=== PATIENT | female | born 1950 | race Caucasian/White ===

== ENCOUNTER 2017-08-27 04:16 | Inpatient (IN) | payer MEDICARE, BC ==
[2017-08-27] MEDS ORDERED: methylPREDNISolone SOD SUCCI 125 MG/2 ML VIAL IV STA (04:22)
[2017-08-27] MEDS ORDERED: IPRATROPIUM 0.5 MG/2.5 ML NEBU INHALATION STA (04:22)
[2017-08-27] MEDS: SODIUM CHLORIDE 0.9% 1,000 ML IV STA ×2 (04:50→10:50)
[2017-08-27 05:05] LABS: Albumin 2.3 g/dL (3.5-5.0); Calcium 6.7 mg/dL (8.4-10.2); Total Bilirubin 0.4 mg/dL (0.2-1.3); Total Protein 4.8 g/dL (6.3-8.2)
[2017-08-27] MEDS: ALBUTEROL NEBULIZED 2.5 MG/3 ML INHALATION STA ×2 (05:07→06:40)
[2017-08-27] MEDS ORDERED: DEXTROSE 5% IN WATER 100 ML with AMIODARONE 150 MG IV ONE (05:08)
[2017-08-27 05:12] LABS: Basophils % (A) 0 %; Eosinophils # (A) 0.1 k/uL (0-0.7); Eosinophils % (A) 1 %; HCT 30.2 % (34.0-46.0); HGB 8.9 gm/dL (11.4-16.0); Hypochromasia Marked; Lymphocytes # (A) 1.6 k/uL (1.0-4.8); Lymphocytes % (A) 11 %; MCH 28.4 pg (25.0-35.0); MCHC 29.5 g/dL (31.0-37.0); MCV 96.1 fL (80.0-100.0); Mean Platelet Volume 7.1; Monocytes # (A) 0.3 k/uL (0-1.0); Monocytes % (A) 2 %; Neutrophils % (A) 85 %; Platelet Count 540 k/uL (150-450); RBC 3.14 m/uL (3.80-5.40); RDW 15.8 % (11.5-15.5); WBC 14.2 k/uL (3.8-10.6)
--- NOTE | 2017-08-27 05:12 | ED ---
General Adult HPI - General Chief complaint: Shortness of Breath Stated complaint: altered mental status Time Seen by Provider: 08/27/17 04:22 Source: patient, EMS Mode of arrival: EMS Limitations: no limitations - History of Present Illness Initial comments: [age] years old lady lives with her daughter and daughter found her on the floor , did she pass out? Prolonged was she on the floor we don't know she is complaining about the headache neck pain and shortness of breath. She stating she just feels like she does have a history of kidney disease and peripheral vascular disease according to daughter she said lately she has been quite confused and needs reminders - Related Data Home Medications Medication Instructions Recorded Confirmed Acetaminophen Tab [Tylenol Tab] 650 mg PO Q4-6H PRN 08/27/17 08/27/17 Aspirin 81 mg PO DAILY 08/27/17 08/27/17 Atorvastatin [Lipitor] 20 mg PO HS 08/27/17 08/27/17 Calcium Acetate [Phoslo] 667 mg PO TID 08/27/17 08/27/17 Clopidogrel [Plavix] 75 mg PO DAILY 08/27/17 08/27/17 Docusate [Colace] 100 mg PO BID 08/27/17 08/27/17 Fluticasone Nasal [place] [Flonase 1 spr EA NOSTRIL DAILY 08/27/17 08/27/17 Nasal [place]] Folic Acid-Vit B Complex-Vit C 1 mg PO DAILY 08/27/17 08/27/17 [Nephrocaps] HYDROcodone/APAP 5-325MG [[place] 1 tab PO Q6HR PRN 08/27/17 08/27/17 5-325] Levothyroxine Sodium [Levoxyl] 400 mcg PO [place] 08/27/17 08/27/17 Levothyroxine Sodium [Synthroid] 200 mcg PO MOTUWETHFRSA 08/27/17 08/27/17 Pantoprazole [Protonix] 40 mg PO BID 08/27/17 08/27/17 Polyethylene Glycol 3350 [Miralax] 17 gm PO DAILY PRN 08/27/17 08/27/17 Potassium Chloride [K-Tab ER] 20 meq PO DAILY 08/27/17 08/27/17 Promethazine HCl 12.5 mg PO Q6H PRN 08/27/17 08/27/17 Sertraline [Zoloft] 100 mg PO DAILY 08/27/17 08/27/17 buPROPion HCL [Wellbutrin SR] 150 mg PO BID 08/27/17 08/27/17 Allergies Allergy/AdvReac Type Severity Reaction Status Date / Time Penicillins Allergy Swelling Verified 08/27/17 07:48 Review of Systems ROS Statement: Those systems with pertinent positive or pertinent negative responses have been documented in the HPI. ROS Other: All systems not noted in ROS Statement are negative. Past Medical History Past Medical History: Diabetes Mellitus, Renal Disease Additional Past Medical History / Comment(s): peritoneal dialysis. History of Any Multi-Drug Resistant Organisms: None Reported Past Surgical History: Bariatric Surgery, Coronary Bypass/CABG Past Psychological History: No Psychological Hx Reported Smoking Status: Former smoker Past Alcohol Use History: None Reported Past Drug Use History: Marijuana General Exam - General Exam Comments Initial Comments: General: The patient is awake and alert, in severe distress O2 sat is low 80s Skin: Skin is warm and dry and no rashes or lesions are noted. Eye: Pupils are equal, round and reactive to light, extra-ocular movements are intact; there is normal conjunctiva bilaterally. Ears, nose, mouth and throat: There are moist mucous membranes and no oral lesions. Neck: The neck is supple, there is no tenderness or JVD. Cardiovascular: There is a regular rate and rhythm. No murmur, rub or gallop is appreciated. Respiratory: To auscultation bilateral, no wheezing no rhonchi no distress respiratory shafer noticed Gastrointestinal: Soft, non-distended, non-tender abdomen without masses or organomegaly noted. There is no rebound or guarding present. Bowel sounds are unremarkable. Back: There is no tenderness to palpation in the midline. There is no obvious deformity. Musculoskeletal: Normal ROM, no tenderness, There is no pedal edema. There is no calf tenderness or swelling. No cords were appreciated. Neurological: CN II-XII intact, Cranial nerves III through XII are intact. There are no obvious motor or sensory deficits. Coordination appears grossly intact. Speech is normal. Psychiatric: Cooperative, appropriate mood & affect, normal judgment. Limitations: no limitations Course Vital Signs 08/27/17 08/27/17 08/27/17 04:19 04:38 05:07 Temperature 96.6 F L Pulse Rate 64 97 48 L Respiratory 28 H 34 H Rate Blood Pressure 199/116 O2 Sat by Pulse 93 L Oximetry 08/27/17 08/27/17 08/27/17 05:29 05:45 06:08 Temperature Pulse Rate 92 85 60 Respiratory 20 14 14 Rate Blood Pressure 81/56 78/53 97/69 O2 Sat by Pulse 97 100 97 Oximetry 08/27/17 08/27/17 08/27/17 06:26 06:39 06:43 Temperature Pulse Rate 89 94 91 Respiratory 14 14 Rate Blood Pressure 102/62 127/70 O2 Sat by Pulse 100 100 Oximetry 08/27/17 08/27/17 06:50 07:48 Temperature Pulse Rate 92 94 Respiratory 16 Rate Blood Pressure 113/66 O2 Sat by Pulse 100 Oximetry Medical Decision Making - Lab Data Result diagrams: 08/27/17 04:44 08/27/17 05:36 Lab Results 08/27/17 08/27/17 08/27/17 Range/Units 04:44 04:44 04:44 WBC 14.2 H (3.8-10.6) k/uL RBC 3.14 L (3.80-5.40) m/uL Hgb 8.9 L (11.4-16.0) gm/dL Hct 30.2 L (34.0-46.0) % MCV 96.1 (80.0-100.0) fL MCH 28.4 (25.0-35.0) pg MCHC 29.5 L (31.0-37.0) g/dL RDW 15.8 H (11.5-15.5) % Plt Count 540 H (150-450) k/uL Neutrophils % 85 % Lymphocytes % 11 % Monocytes % 2 % Eosinophils % 1 % Basophils % 0 % Neutrophils # 12.0 H (1.3-7.7) k/uL Lymphocytes # 1.6 (1.0-4.8) k/uL Monocytes # 0.3 (0-1.0) k/uL Eosinophils # 0.1 (0-0.7) k/uL Basophils # 0.0 (0-0.2) k/uL Hypochromasia Marked PT (9.0-12.0) sec INR (<1.2) APTT (22.0-30.0) sec D-Dimer (<0.60) mg/L FEU Sample Site ABG pH (7.35-7.45) ABG pCO2 (35-45) mmHg ABG pO2 (83-108) mmHg ABG HCO3 (21-25) mmol/L ABG Total CO2 (19-24) mmol/L ABG O2 Saturation (94-97) % ABG Base Excess mmol/L Rhett Test FiO2 % Sodium 143 (137-145) mmol/L Potassium 6.5 H* (3.5-5.1) mmol/L Chloride 112 H (98-107) mmol/L Carbon Dioxide 5 L* (22-30) mmol/L Anion Gap 26 mmol/L BUN 105 H* (7-17) mg/dL Creatinine 9.44 H* (0.52-1.04) mg/dL Est GFR (CKD-EPI)AfAm 5 (>60 ml/min/1.73 sqM) Est GFR (CKD-EPI)NonAf 4 (>60 ml/min/1.73 sqM) Glucose 194 H (74-99) mg/dL Calcium 6.7 L (8.4-10.2) mg/dL Total Bilirubin 0.4 (0.2-1.3) mg/dL AST 35 (14-36) U/L ALT 23 (9-52) U/L Alkaline Phosphatase 66 (38-126) U/L Total Creatine Kinase 181 H (30-135) U/L CK-MB (CK-2) 6.7 H* (0.0-2.4) ng/mL CK-MB (CK-2) Rel Index 3.7 Troponin I 1.240 H* (0.000-0.034) ng/mL Total Protein 4.8 L (6.3-8.2) g/dL Albumin 2.3 L (3.5-5.0) g/dL 08/27/17 08/27/17 08/27/17 Range/Units 04:44 05:36 07:27 WBC (3.8-10.6) k/uL RBC (3.80-5.40) m/uL Hgb (11.4-16.0) gm/dL Hct (34.0-46.0) % MCV (80.0-100.0) fL MCH (25.0-35.0) pg MCHC (31.0-37.0) g/dL RDW (11.5-15.5) % Plt Count (150-450) k/uL Neutrophils % % Lymphocytes % % Monocytes % % Eosinophils % % Basophils % % Neutrophils # (1.3-7.7) k/uL Lymphocytes # (1.0-4.8) k/uL Monocytes # (0-1.0) k/uL Eosinophils # (0-0.7) k/uL Basophils # (0-0.2) k/uL Hypochromasia PT 12.6 H (9.0-12.0) sec INR 1.3 H (<1.2) APTT 27.5 (22.0-30.0) sec D-Dimer 5.03 H (<0.60) mg/L FEU Sample Site Left Radial ABG pH 7.07 L* (7.35-7.45) ABG pCO2 32 L (35-45) mmHg ABG pO2 301 H (83-108) mmHg ABG HCO3 9 L* (21-25) mmol/L ABG Total CO2 10 L (19-24) mmol/L ABG O2 Saturation 98.6 H (94-97) % ABG Base Excess -21.2 mmol/L Rhett Test Yes FiO2 100 % Sodium (137-145) mmol/L Potassium 7.1 H* (3.5-5.1) mmol/L Chloride (98-107) mmol/L Carbon Dioxide (22-30) mmol/L Anion Gap mmol/L BUN (7-17) mg/dL Creatinine (0.52-1.04) mg/dL Est GFR (CKD-EPI)AfAm (>60 ml/min/1.73 sqM) Est GFR (CKD-EPI)NonAf (>60 ml/min/1.73 sqM) Glucose (74-99) mg/dL Calcium (8.4-10.2) mg/dL Total Bilirubin (0.2-1.3) mg/dL AST (14-36) U/L ALT (9-52) U/L Alkaline Phosphatase (38-126) U/L Total Creatine Kinase (30-135) U/L CK-MB (CK-2) (0.0-2.4) ng/mL CK-MB (CK-2) Rel Index Troponin I (0.000-0.034) ng/mL Total Protein (6.3-8.2) g/dL Albumin (3.5-5.0) g/dL Critical Care Time Total Critical Care Time: 90 Critical Care Time: Her EKG is a white complex consistent with a ventricular tachycardia though rate is not that high high potassium is high as well 6.5 she said renal failure and SHE DEVELOPS SEVERE SHORTNESS OF BREATH O2 SAT DROPPED 50 Point WE INTUBATED HER AND NOW SHE IS ON THE VENT AND OXYGENATION HAS IMPROVED QUITE A BIT BACK AND GIVE HER AMIODARONE 150 MG OVER 10 MINUTES TO ADDRESS THE HYPERKALEMIA AND RENAL FAILURE WE'LL TAKE S AND CALCIUM CHLORIDE ONE AMPULE WITH THE D50 AMPULE AND NOW AND NOW REGULAR INSULIN 10 UNITS IV AND TROPONIN IS QUITE ELEVATED SHE DOES NEED HEPARINIZATION AND PROBABLY CARDIAC CATHETER BEFORE WE DO THAT WE NEED TO RULE OUT ANY INTRACEREBRAL BLEED BECAUSE SHE WAS FOUND AND SHE WAS FOUND ON THE FLOOR AND THERE IS A QUESTION OF LOSS OF CONSCIOUSNESS I NEED TO RULE OUT INTRACEREBRAL BLEED BEFORE I PUT ON HEPARIN, BLOOD PRESSURES QUITE LOW. Head CT was reviewed, there is no intracranial bleed , and patient will be heparinized considering her elevated troponin and a run of white complex tachycardia patient is on now appendectomy infusion will consult Dr. aWlker considering her renal failure Dr. Powell has been paged patient be admitted to ICU Dr. Castaneda is going to be the hospitalist and pleuritic 2 g of Rocephin was given area Disposition Clinical Impression: Respiratory failure, Metabolic acidosis, Myocardial infarction, V tach, Syncope , Renal failure Disposition: ADMITTED IP TO THIS HOSP Referrals: Nonstaff,Physician [REFERRING] - 1-2 days
[2017-08-27 05:13] LABS: INR 1.3 (<1.2); Partial Thromboplastin Time 27.5 sec (22.0-30.0); Prothrombin Time 12.6 sec (9.0-12.0)
[2017-08-27 05:25] LABS: Potassium 6.5 mmol/L (3.5-5.1)
[2017-08-27 05:31] LABS: Creatine Kinase MB 6.7 ng/mL (0.0-2.4); Troponin I 1.24 ng/mL (0.000-0.034)
[2017-08-27 05:33] LABS: D-Dimer 5.03 mg/L FEU (<0.60)
[2017-08-27] MEDS ORDERED: CALCIUM CHLORIDE 100 MG/ML 10 ML SYRINGE IVP STA (05:36)
[2017-08-27] MEDS ORDERED: DEXTROSE 50%-WATER 50 ML SYRINGE IVP STA (05:38)
[2017-08-27] MEDS ORDERED: INSULIN REGULAR 100 UNIT/ML VIAL IV ONE (05:39)
--- NOTE | 2017-08-27 05:50 | XR ---
EXAM: XR Chest, 1 View CLINICAL HISTORY: Difficulty breathing. TECHNIQUE: Frontal view of the chest. COMPARISON: No relevant prior studies available. FINDINGS: Lungs: Perihilar and lung base opacities. Pleural space: No significant pleural effusion or pneumothorax. Heart: Mildly enlarged cardiac silhouette. Mediastinum: Postsurgical changes of the chest with evidence of prior sternotomy and postsurgical changes along the left mediastinal margin. Bones/joints: Osseous structures appear intact.. Tubes, lines and devices: Endotracheal tube tip located 3.5 to 4 cm above the merlin in satisfactory position. Enteric tube tip located below the diaphragm in the region of the stomach. Enteric tube appears somewhat curved or kinked distally. IMPRESSION: 1. Endotracheal tube tip located 3.5 to 4 cm above the merlin in satisfactory position. 2. Enteric tube tip located below the diaphragm in the region of the stomach. Enteric tube appears somewhat curved or kinked distally. Correlate for desired positioning. 3. Perihilar and lung base opacities. Findings may be related to congestive change/pulmonary edema versus infectious/inflammatory infiltrates or other process. Recommend clinical correlation and attention on follow-up imaging. 4. Mildly enlarged cardiac silhouette.
[2017-08-27] MEDS: EPINEPHrine 2 MG in DEXTROSE 5% IN WATER 250 ML IV ONE ×6 (05:52→20:49)
[2017-08-27] MEDS ORDERED: KETAMINE 10 MG/ML 20 ML VIAL IV ONE (05:59)
[2017-08-27] MEDS ORDERED: ALBUTEROL NEBULIZED (CONC) 5 MG, SODIUM CHLORIDE 0.9% NEBULIZ 3 ML INHALATION STA ×2 (06:15)
[2017-08-27] MEDS ORDERED: SODIUM BICARB 8.4% 50 ML SYR (1 MEQ/ML) IV ONE ×2 (06:20→08:21)
--- NOTE | 2017-08-27 07:22 | CT ---
EXAMINATION TYPE: CT brain gume madden DATE OF EXAM: 08/27/2017 COMPARISON: NONE HISTORY: Altered mental status and confusion had to be intubated, headache and neck pain CT DLP: 2060 mGycm. Automated Exposure Control for Dose Reduction was Utilized. TECHNIQUE: CT scan of the head and cervical spine are performed without contrast. FINDINGS: There is motion artifact degradation making evaluation suboptimal despite attempted repeat . There is no obvious acute intracranial hemorrhage or midline shift identified. There is ventricular and sulcal prominence consistent with mild age-related cerebral atrophy. There is low-attenuation in the periventricular white matter most likely on basis of product of chronic small vessel ischemic ch tabatha. The calvarium is intact. Neither lens is well-visualized. Visualized paranasal sinuses are michael r. There is partial visualization of endotracheal and orogastric tubes. Incidental 1.3 cm calcified h igh right parietal scalp lesion favored sebaceous cyst or other benign dermatologic etiology axial im age 52 is noted . Cervical spine is visualized in its entirety from C1 through upper thoracic levels and demonstrates s atisfactory alignment without evidence of acute fracture or dislocation. Prevertebral soft tissue ap pears within normal limits. The C1-C2 articulation is within normal limits on the coronal images. There is slight levoconvex scoliotic curvature centered in the upper thoracic spine. Vertebral body a nd disc space heights are maintained. There is moderate anterior spurring C6-C7 level. Review of axia l images shows spur disc complex effacing anterior thecal sac at C6-C7 level. Visualized lung apices show no pneumothorax, emphysematous changes felt present. Interstitial prominence is noted. Thyroid g land is not well-visualized and/or small in size. Small vessel vascular calcification is noted. Endot marcelo tube terminates above merlin at superior level of aortic arch. IMPRESSION: 1. There is no acute fracture or dislocation evident in the cervical spine. 2. No acute intracranial hemorrhage or midline shift is seen.
[2017-08-27] MEDS ORDERED: KETAMINE 50 MG/ML 10 ML VIAL IV STA (07:24)
[2017-08-27] MEDS ORDERED: KETAMINE 10 MG/ML 20 ML VIAL IV STA (07:27)
[2017-08-27 07:33] LABS: ABG Base Excess -21.2 mmol/L; ABG Oxygen Saturation 98.6 % (94-97); ABG PCO2 32 mmHg (35-45); ABG PO2 301 mmHg (83-108); ABG TCO2 10 mmol/L (19-24)
[2017-08-27 07:44] LABS: ABG HCO3 9 mmol/L (21-25); ABG PH 7.07 (7.35-7.45)
[2017-08-27] MEDS ORDERED: HEPARIN SODIUM,PORCINE 5,000 UNIT/ML 1 ML VIAL IV ONE (07:52)
[2017-08-27] MEDS ORDERED: cefTRIAXone 2,000 MG in SODIUM CHLORIDE 0.9% 100 ML IVPB STA (08:01)
[2017-08-27] MEDS ORDERED: cefTRIAXone IN SWFI 2,000 MG/20 ML SYRINGE IVP ONE (08:15)
[2017-08-27] MEDS: HEPARIN SODIUM,PORCINE/D5W PMX 25,000 UNIT in DEXTROSE/WATER 1 500ML.BAG IV SCH (08:29)
[2017-08-27 09:10] LABS: Glucose,Whole Blood 213 mg/dL (75-99)
[2017-08-27] MEDS ORDERED: PROPOFOL 100 ML IV ONE (09:14)
[2017-08-27] MEDS ORDERED: VANCOMYCIN IV PER PHARMACY 1 EACH MISC MISCELLANE PRN (09:49)
[2017-08-27] MEDS ORDERED: SODIUM CHLORIDE 0.9% 2,000 ML IV ONE (09:52)
[2017-08-27] MEDS ORDERED: DEXTROSE 5% IN WATER 1,000 ML with SODIUM BICARB (1 MEQ/ML) 150 ML IV ONE (10:07)
[2017-08-27] MEDS ORDERED: IPRATROPIUM-ALBUTEROL 3 ML NEB INHALATION PRN (10:09)
--- NOTE | 2017-08-27 10:15 | P.NPCON ---
History of Present Illness - Reason for Consult end stage renal disease - History of Present Illness Reason for consultation: End-stage renal disease History of present illness: Patient is a 67-year-old female seen in renal consultation for end-stage renal disease. She is maintained on peritoneal dialysis. [facility] Patient has been on peritoneal dialysis since November 2016. Prior to that she was on hemodialysis for 2 months. Etiology is diabetic kidney disease. Patient lives independently but recently moved in with her daughter in [place], [place]. Last night the daughter heard her speak and thought she was treating. She then heard the patient fall and brought her to the hospital. Patient's potassium level was 6.5 and repeat level was 7.1. She did receive calcium gluconate, 2 g of sodium bicarbonate as well as 10 units of IV insulin with amp of D50. Repeat potassium level is pending. She was also noted to be extremely acidotic with a bicarbonate level of 5. She was noted to be in A. fib with RVR and received amiodarone bolus in the ER. There was also concern for V. tach. She is currently on 7 mics of epinephrine. She is also receiving her first liter of 0.9 fluid bolus. Daughter denies any history of peritonitis. States her dialysis fluid has been clear. Oral intake has been fair the last few days. Vital signs - blood pressure in the systolic 70s. Afebrile. Currently on ventilator. General: The patient appeared well nourished and normally developed. HEENT: Head exam is unremarkable. Neck is without jugular venous distension. LUNGS: Breath sounds decreased. Scattered rhonchi. HEART: Irregular rate and rhythm. ABDOMEN: Abdominal exam reveals normal bowel sounds. Non-tender and non- distended. No evidence of peritonitis. EXTREMITITES: No clubbing, cyanosis, or edema. Past Medical History Past Medical History: Coronary Artery Disease (CAD), COPD, Diabetes Mellitus, GERD/Reflux, GI Bleed, Hyperlipidemia, Hypertension, Renal Disease, Syncope, Vascular Disorder Additional Past Medical History / Comment(s): CKD with peritoneal dialysis nightly-family states she did not perform dialysis last night and possible not the night before that d/t difficulty with equipment, family states pt possible on transplant list for kidney, anemia with transfusions, nausea, NIDDM-no longer on medication since starting dialysis a year ago, possible prior AL/echo- date unknown, PAD-fingers black and sores on feet, PUD with +hemoccult stool, constipation, falls, bladder cyst. History of Any Multi-Drug Resistant Organisms: None Reported Past Surgical History: Bariatric Surgery, Coronary Bypass/CABG, Heart Catheterization Additional Past Surgical History / Comment(s): Approximately 2002 CABG-3 vessels at [facility], multiple angiograms, colonoscopies/benign polypectomies, EGDs, bilateral laser surgery for cataract removals, gastric bypass. Past Anesthesia/Blood Transfusion Reactions: No Reported Reaction Additional Past Anesthesia/Blood Transfusion Reaction / Comment(s): Pt has received blood in past without reaction. Smoking Status: Former smoker - Past Family History Father Family Medical History: Cancer Additional Family Medical History / Comment(s): Father had multiple myeloma. He at the age of 87yrs. Mother Family Medical History: Myocardial Infarction (AL) Additional Family Medical History / Comment(s): Mother of a massive AL at the age of 62 yrs. Medications and Allergies Home Medications Medication Instructions Recorded Confirmed Type Acetaminophen Tab [Tylenol Tab] 650 mg PO Q4-6H PRN 08/27/17 08/27/17 History Aspirin 81 mg PO DAILY 08/27/17 08/27/17 History Atorvastatin [Lipitor] 20 mg PO HS 08/27/17 08/27/17 History Calcium Acetate [Phoslo] 667 mg PO TID 08/27/17 08/27/17 History Clopidogrel [Plavix] 75 mg PO DAILY 08/27/17 08/27/17 History Docusate [Colace] 100 mg PO BID 08/27/17 08/27/17 History Fluticasone Nasal [place] [Flonase 1 spr EA NOSTRIL DAILY 08/27/17 08/27/17 History Nasal [place]] Folic Acid-Vit B Complex-Vit C 1 mg PO DAILY 08/27/17 08/27/17 History [Nephrocaps] HYDROcodone/APAP 5-325MG [[place] 1 tab PO Q6HR PRN 08/27/17 08/27/17 History 5-325] Levothyroxine Sodium [Levoxyl] 400 mcg PO PAT[place] 08/27/17 08/27/17 History Levothyroxine Sodium [Synthroid] 200 mcg PO MOTUWETHFRSA 08/27/17 08/27/17 History Pantoprazole [Protonix] 40 mg PO BID 08/27/17 08/27/17 History Polyethylene Glycol 3350 [Miralax] 17 gm PO DAILY PRN 08/27/17 08/27/17 History Potassium Chloride [K-Tab ER] 20 meq PO DAILY 08/27/17 08/27/17 History Promethazine HCl 12.5 mg PO Q6H PRN 08/27/17 08/27/17 History Sertraline [Zoloft] 100 mg PO DAILY 08/27/17 08/27/17 History buPROPion HCL [Wellbutrin SR] 150 mg PO BID 08/27/17 08/27/17 History Allergies Allergy/AdvReac Type Severity Reaction Status Date / Time Penicillins Allergy Swelling Verified 08/27/17 07:48 Physical Exam Vitals: Vital Signs Temp Pulse Resp BP Pulse Ox 08/27/17 08:41 94 14 94/58 97 08/27/17 07:48 94 16 113/66 100 08/27/17 06:50 92 08/27/17 06:43 91 08/27/17 06:39 94 14 127/70 100 08/27/17 06:26 89 14 102/62 100 08/27/17 06:08 60 14 97/69 97 08/27/17 05:45 85 14 78/53 100 08/27/17 05:29 92 20 81/56 97 08/27/17 05:07 48 L 08/27/17 04:38 97 34 H 199/116 08/27/17 04:19 96.6 F L 64 28 H 93 L Intake and Output 08/26/17 08/27/17 08/27/17 22:59 06:59 14:59 Intake Total 2.961 Balance 2.961 Intake: Intake, IV Titration 2.961 Amount EPINEPHrine 2 mg In 2.961 Dextrose 5% in Water 250 ml @ 2 MCG/MIN 15.12 mls/ hr IV .[id number] ONE Rx#: [id number] Other: Weight 56.245 kg Results - Lab Results Most recent lab results ABG pH 7.07 (7.35-7.45) L* 08/27/17 07:27 ABG pCO2 32 mmHg (35-45) L 08/27/17 07:27 ABG pO2 301 mmHg (83-108) H 08/27/17 07:27 ABG HCO3 9 mmol/L (21-25) L* 08/27/17 07:27 ABG O2 Saturation 98.6 % (94-97) H 08/27/17 07:27 Calcium 6.7 mg/dL (8.4-10.2) L 08/27/17 04:44 08/27/17 04:44 08/27/17 05:36 Assessment and Plan Plan: Assessment: 1. End-stage renal disease maintained on peritoneal dialysis since November 2016. Etiology is diabetic kidney disease. 2. Hyperkalemia secondary to severe metabolic acidosis. She was also taking potassium supplementation as outpatient. According to daughter she did not do PD last night. 3. Severe metabolic acidosis. Concern for lactic acidosis due to severe hypotension. Blood sugars not significantly elevated. 4. Chronic kidney disease mineral bone disease maintained on PhosLo as outpatient. 5. History of coronary artery disease status post CABG 15 years ago. 6. Severe hypotension maintained on vasopressors. Concern for sepsis. 7. Cardiac arrhythmia. Initially A. fib then concern for V. tach. Can be related to hyperkalemia. Plan: Start isotonic sodium bicarbonate drip to be run at 100 mL an hour. She is currently receiving her first liter of normal saline bolus. The bolus may be repeated at least twice if needed for hypotension. Maintain vasopressors - currently on epinephrine 7 mics. Follow-up repeat potassium level. Start PD exchanges 2 L every 4 hours with 1.5% solution. Follow-up cultures. Check lactic acid level. Continue to monitor closely - if no significant improvement in her hyperkalemia , will do emergent hemodialysis. Thank you for the consultation. I will continue to follow the patient is due during her hospital stay.
[2017-08-27 10:47] LABS: ABG Base Excess -16.4 mmol/L; ABG HCO3 11 mmol/L (21-25); ABG Oxygen Saturation 94.2 % (94-97); ABG PCO2 27 mmHg (35-45); ABG PH 7.22 (7.35-7.45); ABG PO2 88 mmHg (83-108); ABG TCO2 12 mmol/L (19-24)
[2017-08-27] MEDS: PANTOPRAZOLE 40 MG/10 ML VIAL IVP SCH (10:48)
[2017-08-27] MEDS: MEROPENEM 1 GM in SODIUM CHLORIDE 0.9% 100 ML IVPB SCH ×3 (10:49→23:05)
[2017-08-27 10:58] LABS: Basophils % (A) 0 %; Eosinophils # (A) 0.1 k/uL (0-0.7); Eosinophils % (A) 1 %; HCT 26.8 % (34.0-46.0); HGB 8.3 gm/dL (11.4-16.0); Hypochromasia Slight; Lymphocytes # (A) 0.7 k/uL (1.0-4.8); Lymphocytes % (A) 4 %; MCH 28.5 pg (25.0-35.0); MCHC 30.8 g/dL (31.0-37.0); MCV 92.5 fL (80.0-100.0); Mean Platelet Volume 7.4; Monocytes # (A) 0.5 k/uL (0-1.0); Monocytes % (A) 3 %; Neutrophils # (A) 15.6 k/uL (1.3-7.7); Neutrophils % (A) 91 %; Platelet Count 464 k/uL (150-450); RBC 2.89 m/uL (3.80-5.40); RDW 15.9 % (11.5-15.5)
[2017-08-27 11:13] LABS: Calcium 6.9 mg/dL (8.4-10.2); Potassium 4.5 mmol/L (3.5-5.1)
[2017-08-27] MEDS: DEXTROSE 5% IN WATER 1,000 ML with SODIUM BICARB (1 MEQ/ML) 150 ML IV SCH ×2 (11:14→22:55)
[2017-08-27] MEDS ORDERED: SODIUM POLYSTYRENE SULFONATE 15 GM/60 ML BOTTLE PO STA (11:14)
--- NOTE | 2017-08-27 11:23 | P.CNPUL ---
History of Present Illness Consult date: 08/27/17 Reason for consult: dyspnea History of present illness: This is a 67-year-old female patient with multiple medical problems and comorbidities who presented to ED with acute respiratory distress, intubated and placed on a mechanical ventilator and then moved to the intensive care unit. The patient has taken all of her care at [facility]. She has chronic renal failure and she currently has end stage renal disease and she is seeking kidney transportation the patient has been evaluated at [facility] for potential kidney transplant the daughter being her daughter. This patient lives in [place] and she recently moved in with her daughter living in [facility], and for that reason during this current episode the patient was brought in to our hospital. All of the information was obtained is from the daughters at the bedside This patient has developed renal failure, probably related to previous history of diabetes mellitus. She was started on peritoneal dialysis approximately year ago and she does nighttime cycler continuous with a 1.5 fluid exchange. This was started on high-dose in November 2016. Hemodialysis was considered and the patient was about to have a left upper extremity AV fistula. The fistula itself got clotted and the patient developed also ulceration in her digits bilaterally and for that reason this was not pursued. Currently the patient is gangrenous necrotic digits of the middle fingers of the left and the fourth finger on the right, affecting the tips. This was investigated at length at [facility]. The patient underwent a CT angios of the entire chest abdomen pelvis and extremities and she was found to have no significant subclavian axillary or brachial artery narrowing. She was found to have diffuse atherosclerosis with calcification of the bilateral radial and ulnar arteries and mild to moderate narrowing in the areas affecting the wrist. Atherosclerotic changes were also seen in the infrarenal abdominal aortic area which was estimated to be severe. Bilateral iliofemoral atherosclerotic changes were also seen. The patient was told to have small vessel disease and based on the reported history there was no evidence of any embolic phenomena or vasculitis The patient is known to have coronary artery disease and she has undergone pleased bypass surgery. She was morbidly obese and she was diabetic. She has undergone gastric bypass surgery more than 6 years ago and she has lost considerable amount of weight and during this time the patient was taken off as soon as she improved in terms of her blood sugar control and she started having episodes of hypoglycemia. Currently she is off anticoagulation. She also has chronic atrial fibrillation, chronic renal failure and currently she is on peritoneal dialysis, she hasn't complications of hyperkalemia, and she has history of hypertension, hyperlipidemia, hypothyroidism, peripheral vascular disease and previous history of coronary artery disease and myocardial infarction. The patient was at her daughter's home where she was feeling weak. In the residential care officer hours the patient was found by the daughter collapsed in the bathroom. No reported chest pain or palpitations. No focal neurological deficit. The patient was lethargic and she was arousable and she was able to speak. She was moving all 4 extremities according to the history. No fever. No chills. No cough or sputum production. No nausea, vomiting or abdominal pain. The PD catheter was apparently functional. No skin rashes. Necrotic digits were seen bilaterally and these are dry gangrene. In the ED, the patient was found to be hypotensive postintubation. The patient was started on IV fluids and pressors. The patient was started on epinephrine infusion. She was intubated and blood gas showed severe metabolic acidosis. The chest x-ray shows cardiomegaly and pulmonary vessel congestion. ET tube was in a good location. No consolidation . Meanwhile, the patient's white cell count was at 14.2. The patient had a potassium level of 6.5 was being treated in the emergency department with a combination of Kayexalate, D50 and insulin and bicarb and the patient was severely acidotic with anion gap metabolic acidosis with a gap of 26 and a bicarb level of 5, creatinine of 9.4, and a troponin level of 1.2. EKG is not showing any acute ischemic abnormalities and is showing a normal sinus rhythm with a left bundle-branch block pattern. Subsequent potassium level was 7.1. Waldemar saw the patient in the ICU and we're going to start peritoneal dialysis. Meanwhile the patient is being resuscitated IV fluids. We'll start empiric antibiotic coverage. We'll monitor cardiac enzymes and obtain an echocardiogram. The computed tomography scan of the brain and C-spine showed no evidence of acute fracture and there was no evidence of any acute intracranial hemorrhage. The Review of Systems ROS unobtainable: due to endotracheal tube Past Medical History Past Medical History: Coronary Artery Disease (CAD), COPD, Diabetes Mellitus, GERD/Reflux, GI Bleed, Hyperlipidemia, Hypertension, Renal Disease, Syncope, Vascular Disorder Additional Past Medical History / Comment(s): Coronary artery disease, previous bypass surgery, COPD, and stage renal disease currently on hemodialysis, morbid obesity with a previous bariatric surgery, history of diabetes mellitus currently off treatment, hyperlipidemia, hypertension, acid reflux, severe peripheral vascular disease, necrotic digits with dry gangrene is related to small vessel disease, chronic anemia, previous blood transfusions, previous myocardial infarction, currently on hemodialysis, peptic ulcer disease, history of falls, History of Any Multi-Drug Resistant Organisms: None Reported Past Surgical History: Bariatric Surgery, Coronary Bypass/CABG, Heart Catheterization Additional Past Surgical History / Comment(s): Approximately 2002 CABG-3 vessels at [facility], multiple angiograms, colonoscopies/benign polypectomies, EGDs, bilateral laser surgery for cataract removals, gastric bypass. Past Anesthesia/Blood Transfusion Reactions: No Reported Reaction Additional Past Anesthesia/Blood Transfusion Reaction / Comment(s): Pt has received blood in past without reaction. Smoking Status: Former smoker - Past Family History Father Family Medical History: Cancer Additional Family Medical History / Comment(s): Father had multiple myeloma. He at the age of 87yrs. Mother Family Medical History: Myocardial Infarction ([place]) Additional Family Medical History / Comment(s): Mother of a massive [place] at the age of 62 yrs. Medications and Allergies Home Medications Medication Instructions Recorded Confirmed Type Acetaminophen Tab [Tylenol Tab] 650 mg PO Q4-6H PRN 08/27/17 08/27/17 History Aspirin 81 mg PO DAILY 08/27/17 08/27/17 History Atorvastatin [Lipitor] 20 mg PO HS 08/27/17 08/27/17 History Calcium Acetate [Phoslo] 667 mg PO TID 08/27/17 08/27/17 History Clopidogrel [Plavix] 75 mg PO DAILY 08/27/17 08/27/17 History Docusate [Colace] 100 mg PO BID 08/27/17 08/27/17 History Fluticasone Nasal [place] [Flonase 1 spr EA NOSTRIL DAILY 08/27/17 08/27/17 History Nasal [place]] Folic Acid-Vit B Complex-Vit C 1 mg PO DAILY 08/27/17 08/27/17 History [Nephrocaps] HYDROcodone/APAP 5-325MG [[place] 1 tab PO Q6HR PRN 08/27/17 08/27/17 History 5-325] Levothyroxine Sodium [Levoxyl] 400 mcg PO PATTON 08/27/17 08/27/17 History Levothyroxine Sodium [Synthroid] 200 mcg PO MOTUWETHFRSA 08/27/17 08/27/17 History Pantoprazole [Protonix] 40 mg PO BID 08/27/17 08/27/17 History Polyethylene Glycol 3350 [Miralax] 17 gm PO DAILY PRN 08/27/17 08/27/17 History Potassium Chloride [K-Tab ER] 20 meq PO DAILY 08/27/17 08/27/17 History Promethazine HCl 12.5 mg PO Q6H PRN 08/27/17 08/27/17 History Sertraline [Zoloft] 100 mg PO DAILY 08/27/17 08/27/17 History buPROPion HCL [Wellbutrin SR] 150 mg PO BID 08/27/17 08/27/17 History Allergies Allergy/AdvReac Type Severity Reaction Status Date / Time Penicillins Allergy Swelling Verified 08/27/17 07:48 Physical Exam Vitals: Vital Signs Temp Pulse Resp BP Pulse Ox 08/27/17 08:41 94 14 94/58 97 08/27/17 07:48 94 16 113/66 100 08/27/17 06:50 92 08/27/17 06:43 91 08/27/17 06:39 94 14 127/70 100 08/27/17 06:26 89 14 102/62 100 08/27/17 06:08 60 14 97/69 97 08/27/17 05:45 85 14 78/53 100 08/27/17 05:29 92 20 81/56 97 08/27/17 05:07 48 L 08/27/17 04:38 97 34 H 199/116 08/27/17 04:19 96.6 F L 64 28 H 93 L Intake and Output 08/26/17 08/27/17 08/27/17 22:59 06:59 14:59 Intake Total 2.961 Balance 2.961 Intake: Intake, IV Titration 2.961 Amount EPINEPHrine 2 mg In 2.961 Dextrose 5% in Water 250 ml @ 2 MCG/MIN 15.12 mls/ hr IV .[id number] ONE Rx#: [id number] Other: Weight 56.245 kg Appearance the patient is intubated, comfortable likely distress sedated at this point Head exam was generally normal. There was no scleral icterus or corneal arcus. Mucous membranes were moist. The patient has an orogastric and orotracheal tube are both in place and secured. Neck was supple and without jugular venous distension, thyromegaly, or carotid bruits. Carotids were easily palpable bilaterally. There was no adenopathy. Lungs sounds are diminished bilaterally along with some scattered rhonchi and bilateral crackles in lung bases. No wheezing. ET tube is in a good location. Heart sounds are regular, positive S1-S2, no significant murmurs appreciated. Sternum stable treatment intact and scar of previous thoracotomy is intact. Abdominal exam revealed normal bowel sounds. The abdomen was soft, non-tender, and without masses, organomegaly, or appreciable enlargement of the abdominal aorta. The patient has a PD catheter which is in place and there is no direct tenderness or rebound tensile guarding. Extremities revealed no edema. Pulses in lower extremities are markedly diminished. The patient has necrotic digits at the tips of the digits involving the third mid finger on the left and the fourth finger on the right. There is evidence of dry gangrene. No evidence of any wound infection. The area is pretty much black and necrotic. No lower extremities edema. No cyanosis. Neurologic the patient is sedated. She is despite to deep painful stimuli. Results - Laboratory Findings CBC and BMP: 08/27/17 04:44 08/27/17 05:36 ABG ABG pH 7.22 (7.35-7.45) L 08/27/17 10:44 ABG pCO2 27 mmHg (35-45) L 08/27/17 10:44 ABG pO2 88 mmHg (83-108) 08/27/17 10:44 ABG O2 Saturation 94.2 % (94-97) 08/27/17 10:44 PT/INR, D-dimer PT 12.6 sec (9.0-12.0) H 08/27/17 04:44 INR 1.3 (<1.2) H 08/27/17 04:44 D-Dimer 5.03 mg/L FEU (<0.60) H 08/27/17 04:44 Abnormal lab findings: Abnormal Labs 08/27/17 08/27/1708/27/18 04:44 04:44 04:44 WBC 14.2 H RBC 3.14 L Hgb 8.9 L Hct 30.2 L MCHC 29.5 L RDW 15.8 H Plt Count 540 H Neutrophils # 12.0 H PT INR D-Dimer ABG pH ABG pCO2 ABG pO2 ABG HCO3 ABG Total CO2 ABG O2 Saturation Potassium 6.5 H* Chloride 112 H Carbon Dioxide 5 L* BUN 105 H* Creatinine 9.44 H* Glucose 194 H POC Glucose (mg/dL) Calcium 6.7 L Total Creatine Kinase 181 H CK-MB (CK-2) 6.7 H* Troponin I 1.240 H* Total Protein 4.8 L Albumin 2.3 L 08/27/17 08/27/17 08/27/17 04:44 05:36 07:27 WBC RBC Hgb Hct MCHC RDW Plt Count Neutrophils # PT 12.6 H INR 1.3 H D-Dimer 5.03 H ABG pH 7.07 L* ABG pCO2 32 L ABG pO2 301 H ABG HCO3 9 L* ABG Total CO2 10 L ABG O2 Saturation 98.6 H Potassium 7.1 H* Chloride Carbon Dioxide BUN Creatinine Glucose POC Glucose (mg/dL) Calcium Total Creatine Kinase CK-MB (CK-2) Troponin I Total Protein Albumin 08/27/17 08/27/17 09:07 10:44 WBC RBC Hgb Hct MCHC RDW Plt Count Neutrophils # PT INR D-Dimer ABG pH 7.22 L ABG pCO2 27 L ABG pO2 ABG HCO3 11 L ABG Total CO2 12 L ABG O2 Saturation Potassium Chloride Carbon Dioxide BUN Creatinine Glucose POC Glucose (mg/dL) 213 H Calcium Total Creatine Kinase CK-MB (CK-2) Troponin I Total Protein Albumin - Diagnostic Findings Chest x-ray: image reviewed Assessment and Plan Plan: Assessment 1 acute hypoxic respiratory failure, multifactorial, still on that investigation. The patient is currently intubated on a mechanical ventilator. 2 acute hypotension, consider septic shock, cardiac contribution for the patient 's hypotension cannot be completely excluded especially with abnormal troponin level that may suggest acute non-ST segment elevation myocardial infarction 3 acute non-STEMI 4 coronary artery disease with previous coronary artery bypass surgery 5 and stage renal disease on hemodialysis via peritoneal dialysis. The patient has been on PD since November 2016. 6 acute hyperkalemia secondary to severe metabolic acidosis and the patient apparently was taking potassium supplements on outpatient basis. No EKG changes at this point in time of the patient's hyperkalemia is being treated 7 severe anion gap metabolic acidosis, concern for lactic acidosis secondary to sepsis/hypotension 8 history of obesity status post gastric bypass surgery 9 diabetes mellitus recovered following bariatric surgery and the patient is currently on no diabetic medications 10 hypertension, history of 11 hypothyroidism 12 hyperlipidemia 13 severe peripheral vascular disease 14 dry gangrene involving the tips of the fingers in both hands involving the third finger on the left and the forefinger on the right. 15 seeking kidney transplantation to [facility] 16 chronic anemia, normocytic 17 hypoproteinemia and hypoalbuminemia Plan Pina vent support. As mentioned the patient has significant metabolic acidosis. This may be lactic acidosis and the lactic acid level will be checked. Meanwhile, the necessity ventilator changes will be done to increase the patient's minute ventilation. I put the patient on BC plus mode at a tidal volume of 600, rate of 14, FiO2 is at 50% with a PEEP of 5. Subsequent blood gas showed improvement and acid base status with a pH of 7.28 with a pCO2 of 27 and pO2 of 88. The patient will be started on bicarb drip at the rate of 100 mL an hour. The patient was maintained on pressors with epinephrine drip. We will insert a triple lumen catheter. We'll insert an outlying catheter. The site of the catheter insertion would be the right groin. We will obtain an emergent echocardiogram. Will monitor the cardiac enzymes. We will cover the patient with broad-spectrum antibiotics and I will suggest putting on a combination of Merrem and vancomycin, pharmacy to dose. Obtain blood cultures. Keep the patient nothing by mouth for now. We will send also peritoneal fluid from the abdomen for cultures. Will monitor the potassium level. The patient has already received the potassium cocktail and the patient will be started on dialysis, peritoneal dialysis, per nephrology recommendations and will use 2 L exchanges every 4 hours with a 1.5% solution. Monitor lactic acid level. Monitor potassium level. Continue epinephrine at the current dose which is 7 mics. Condition is critical. We'll continue to follow make further recommendations based on her progress. Time with Patient: Greater than 30
[2017-08-27 11:40] LABS: Creatine Kinase MB 16.6 ng/mL (0.0-2.4); Troponin I 2.34 ng/mL (0.000-0.034)
[2017-08-27] MEDS: IPRATROPIUM-ALBUTEROL 3 ML NEB INHALATION SCH ×3 (11:42→19:21)
[2017-08-27] MEDS: DIALYSIS (PERIT 1.5%) 2,000 ML 30 G/2,000 ML BAG INTRAPERIT SCH ×2 (11:59→18:14)
[2017-08-27] MEDS ORDERED: VANCOMYCIN 1,250 MG in SODIUM CHLORIDE 0.9% 250 ML IVPB ONE (12:00)
--- NOTE | 2017-08-27 12:29 | ECHOF ---
Referral Reason:cardiogenic shock MEASUREMENTS -------- HEIGHT: 154.9 cm WEIGHT: 56.2 kg BP: 94/58 RVIDd: 2.8 cm (< 3.3) IVSd: 1.2 cm (0.6 - 1.1) LVIDd: 5.5 cm (3.9 - 5.3) LVPWd: 1.1 cm (0.6 - 1.1) IVSs: 1.3 cm LVIDs: 5.3 cm LVPWs: 1.3 cm LA Diam: 4.2 cm (2.7 - 3.8) LAESV Index (A-L): 35.59 ml/m Ao Diam: 3.2 cm (2.0 - 3.7) AV Cusp: 1.6 cm (1.5 - 2.6) MV EXCURSION: 17.245 mm (> 18.000) MV EF SLOPE: 71 mm/s (70 - 150) EPSS: 2.3 cm AV maxP.18 mmHg AV meanP.67 mmHg RAP: 5.00 mmHg RVSP: 42.24 mmHg FINDINGS -------- Sinus rhythm. This was a technically good study. The left ventricle is mildly dilated. There is borderline concentric left ventricular hypertrophy. Overall left ventricular systolic function is severely impaired with, an EF between 25 - 30 %. Mi d inferior LV wall motion is hypokinetic. Mid inferoseptal LV wall motion is hypokinetic. Apica l inferior LV wall motion is hypokinetic. Apical septum LV wall motion is hypokinetic. The right ventricle is normal in size. LA is moderately dilated 34-39 ml/m2 The right atrium is normal in size. Aortic valve is trileaflet and is moderately thickened. Trace to mild aortic regurgitation. There is mild aortic stenosis present. Peak/mean gradient across the Aortic Valve is 14.18mmHg / 6.67mmH g. The mitral valve leaflets are mildly thickened. Mild mitral annular calcification present. Modera [id number] mitral regurgitation is present. Mild tricuspid regurgitation present. There is mild pulmonary hypertension. The right ventricular systolic pressure, as measured by Doppler, is 42.24mmHg. Trace/mild (physiologic) pulmonic regurgitation. The aortic root size is normal. Normal inferior vena cava with normal inspiratory collapse consistent with estimated right atrial pre ssure of 5 mmHg. There is no pericardial effusion. Pleural Effusion with Fibrin. CONCLUSIONS -------- 1. Sinus rhythm. 2. This was a technically good study. 3. The left ventricle is mildly dilated. 4. There is borderline concentric left ventricular hypertrophy. 5. Overall left ventricular systolic function is severely impaired with, an EF between 25 - 30 %. 6. Mid inferior LV wall motion is hypokinetic. 7. Mid inferoseptal LV wall motion is hypokinetic. 8. Apical inferior LV wall motion is hypokinetic. 9. Apical septum LV wall motion is hypokinetic. 10. The right ventricle is normal in size. 11. LA is moderately dilated 34-39 ml/m2 12. The right atrium is normal in size. 13. Aortic valve is trileaflet and is moderately thickened. 14. There is mild aortic stenosis present. 15. Peak/mean gradient across the Aortic Valve is 14.18mmHg / 6.67mmHg. 16. The mitral valve leaflets are mildly thickened. 17. Mild mitral annular calcification present. 18. [id number]-[id number] mitral regurgitation is present. 19. Mild tricuspid regurgitation present. 20. There is mild pulmonary hypertension. 21. The right ventricular systolic pressure, as measured by Doppler, is 42.24mmHg. 22. Trace/mild (physiologic) pulmonic regurgitation. 23. The aortic root size is normal. 24. Normal inferior vena cava with normal inspiratory collapse consistent with estimated right atrial pressure of 5 mmHg. 25. There is no pericardial effusion. 26. Pleural Effusion with Fibrin. LOANS CONSULTANT: Jessica Garcia RDCS
--- NOTE | 2017-08-27 12:30 | PCN ---
PROCEDURE NOTE PREOPERATIVE DIAGNOSIS: Acute respiratory failure. POSTOPERATIVE DIAGNOSIS: Acute respiratory failure. TRIPLE LUMEN CATHETER PLACEMENT: Indication Hemodynamic monitoring/Intravenous access. A time-out was completed verifying correct patient, procedure, site, positioning, and implant(s) or special equipment if applicable. The patient was placed in a dependent position appropriate for triple lumen catheter placement based on the vein to be cannulated. The patient's right groin was prepped and draped in sterile fashion. 1% Lidocaine was used to anesthetize the surrounding skin area. A triple lumen 9F Cordis catheter was introduced into the right common femoral vein using Seldinger technique. The catheter was threaded smoothly over the guide wire and appropriate blood return was obtained. Each lumen of the catheter was evacuated of air and flushed with sterile saline. The catheter was then sutured in place to the skin and a sterile dressing applied. Perfusion to the extremity distal to the point of catheter insertion was checked and found to be adequate. No bedside complications or bleeding. MMODL / IJN: [id number] /
--- NOTE | 2017-08-27 12:36 | PCN ---
PROCEDURE NOTE ARTERIAL LINE PLACEMENT: Indications: Hemodynamic monitoring. A time-out was completed verifying correct patient, procedure, site, positioning, and implant(s) or special equipment if applicable. Rhett's test was performed to ensure adequate perfusion. The patient's right groin was prepped and draped in sterile fashion. 1% Lidocaine was used to anesthetize the area. An 18G Arrow arterial line was introduced into the right femoral artery. The catheter was threaded over the guide wire and the needle was removed with appropriate pulsatile blood return. Blood loss was minimal. The catheter was then sutured in place to the skin and a sterile dressing applied. Perfusion to the extremity distal to the point of catheter insertion was checked and found to be adequate. The patient tolerated the procedure well and there were no bedside complications or bleeding. MMODL / IJN: [id number] /
[2017-08-27] MEDS: NITROGLYCERIN OINT 1 INCH/GM PACKET TOPICAL SCH ×3 (14:04→23:25)
--- NOTE | 2017-08-27 14:30 | CONS ---
CONSULTATION This is a 67-year-old lady with multiple medical problems. This lady has history of CAD, prior bypass surgery sometime in 2004 or so. She has history of hypertension, hyperlipidemia, end-stage renal disease on peritoneal dialysis, and she also has hyperkalemia. She came in with a syncope and collapse. Apparently she was in the emergency room in respiratory distress, placed on a mechanical ventilator and admitted to ICU. This is the first visit to this hospital. She has all her care at [facility]. She is apparently seeking kidney transplantation and she now has end- stage renal disease and currently lives with her daughter. She has history of CAD, prior bypass surgery, but no recent issues or no recent episodes of myocardial infarction but she has significant vascular disease of all her vessels. The patient has some gangrenous necrotic digits of her middle finger of the left and fourth finger on the right. Apparently this was evaluated by multiple angiograms at [facility]. She was found to have no significant disease in the upper extremity arteries, both subclavian and brachial artery. She has diffuse calcification and atherosclerosis of the radial and ulnar arteries as well as of the infrarenal aorta as well. She has had severe aortobifemoral disease as well. At the time of my evaluation, patient is intubated, I cannot obtain any meaningful history from her. She appears to be initially in a wide QRS rhythm, but now she is in sinus with a left bundle. Her potassium was elevated. She received Kayexalate as well as insulin and bicarbonate and her potassium has come down to normal. From a cardiac standpoint, she has multiple comorbid conditions, possible non ST elevation [place]. She is also on IV heparin at this time. PAST MEDICAL HISTORY: 1. CAD with prior bypass surgery. 2. Severe peripheral vascular disease involving both upper and lower extremity vessels. 3. Type 2 diabetes mellitus. 4. Hypertension. 5. Hyperlipidemia. 6. End-stage renal disease on peritoneal dialysis. PHYSICAL EXAMINATION: On examination, her blood pressure is 100/60, pulse rate is about 90 per minute. HEENT: Unremarkable. I did not do a detailed examination. Neck is supple. I cannot appreciate any JVD. Bilateral soft carotid bruits are audible. Heart exam reveals S1, S2 heard normally but with a lot of respiratory noise I cannot appreciate any murmurs. There is sternotomy scar noted. Lungs reveal diminished air entry both bases. Abdomen is soft. Lower extremities reveal no edema. Pulses are quite diminished. Central nervous system assessment was not performed. LABORATORY DATA: Laboratory data reveals elevated troponin levels, raising the possibility of non-ST elevation myocardial infarction. Her initial troponin on arrival was 1.2, now it is 2.3. IMPRESSION: 1. Non ST elevation myocardial infarction. This is probably as a result of relative hypoxia with oxygen mismatch, although underlying progression of coronary artery disease cannot be excluded in a patient with a prior bypass surgery. 2. End-stage renal disease. 3. Hyperkalemia. 4. Syncope and collapse. RECOMMENDATION: I am recommending that we continue to monitor her electrolytes. Supportive care including oxygenation. I agree with the heparin that is being given now. We will check electrolytes again and see how she does. An echocardiogram is also being advised. Prognosis remains poor. Thank you very much for the consult. GLORIA / HALLEY: [id number] /
[2017-08-27 14:31] LABS: T4, Free (Free Thyroxine) 0.74 ng/dL (0.78-2.19)
[2017-08-27 15:41] LABS: Appearance,BF Hazy; Nucleated Cells, Body Fluid 170 /uL
[2017-08-27 15:42] LABS: RBC, Body Fluid 160 /uL
[2017-08-27 16:03] LABS: Mononuclear WBC,Body Fluid 90 %; Polynuclear WBC,Body Fluid 10 %; Total Cells Counted,Body Fluid 100
[2017-08-27] MEDS: PROPOFOL 1,000 MG in EMPTY BAG 1 BAG IV SCH ×2 (16:10→20:51)
--- NOTE | 2017-08-27 16:12 | P.HPIM ---
History of Present Illness 65-year-old female came in because of a fall at home. Patient is found to be septic acute respiratory distress subsequently intubated. Patient has multiple by medical problems which will be described below. Patient is found we'll found to have low blood pressure anion gap metabolic acidosis with lactic acidosis, end-stage renal disease with highly elevated creatinine. Patient is a. Peroneal dialysis dependent patient. Was evaluated in the past in [facility] for renal transplantation. Patient's source off infection is not clear patient is presently being treated for possible peritonitis patient is does have bilateral pleural effusions has very low ejection fraction of 25-30% patient is presently on epinephrine intubated sedated with propofol. Patient is ventilator dependent secondary to sepsis bilateral pulmonary edema was also appreciated on the chest x-ray, has very low ejection fraction, multiple ulcerations in bilateral lower limbs may be contributing to sepsis presently on broad-spectrum antibiotics meropenem and vancomycin, blood cultures urine cultures and sputum cultures are pending. Patient has highly elevated potassium of 7.1 which has come down to 4.5 now patient is hypothermic with a bear hugger. Review of Systems Unable to obtain Past Medical History Past Medical History: Coronary Artery Disease (CAD), COPD, Diabetes Mellitus, GERD/Reflux, GI Bleed, Hyperlipidemia, Hypertension, Renal Disease, Syncope, Vascular Disorder Additional Past Medical History / Comment(s): Coronary artery disease, previous bypass surgery, COPD, and stage renal disease currently on hemodialysis, morbid obesity with a previous bariatric surgery, history of diabetes mellitus currently off treatment, hyperlipidemia, hypertension, acid reflux, severe peripheral vascular disease, necrotic digits with dry gangrene is related to small vessel disease, chronic anemia, previous blood transfusions, previous myocardial infarction, currently on hemodialysis, peptic ulcer disease, history of falls, History of Any Multi-Drug Resistant Organisms: None Reported Past Surgical History: Bariatric Surgery, Coronary Bypass/CABG, Heart Catheterization Additional Past Surgical History / Comment(s): Approximately 2002 CABG-3 vessels at [facility], multiple angiograms, colonoscopies/benign polypectomies, EGDs, bilateral laser surgery for cataract removals, gastric bypass. Past Anesthesia/Blood Transfusion Reactions: No Reported Reaction Additional Past Anesthesia/Blood Transfusion Reaction / Comment(s): Pt has received blood in past without reaction. Smoking Status: Former smoker - Past Family History Father Family Medical History: Cancer Additional Family Medical History / Comment(s): Father had multiple myeloma. He at the age of 87yrs. Mother Family Medical History: Myocardial Infarction (PR) Additional Family Medical History / Comment(s): Mother of a massive PR at the age of 62 yrs. Medications and Allergies Home Medications Medication Instructions Recorded Confirmed Type Acetaminophen Tab [Tylenol Tab] 650 mg PO Q4-6H PRN 08/27/17 08/27/17 History Aspirin 81 mg PO DAILY 08/27/17 08/27/17 History Atorvastatin [Lipitor] 20 mg PO HS 08/27/17 08/27/17 History Calcium Acetate [Phoslo] 667 mg PO TID 08/27/17 08/27/17 History Clopidogrel [Plavix] 75 mg PO DAILY 08/27/17 08/27/17 History Docusate [Colace] 100 mg PO BID 08/27/17 08/27/17 History Fluticasone Nasal [place] [Flonase 1 spr EA NOSTRIL DAILY 08/27/17 08/27/17 History Nasal [place]] Folic Acid-Vit B Complex-Vit C 1 mg PO DAILY 08/27/17 08/27/17 History [Nephrocaps] HYDROcodone/APAP 5-325MG [[place] 1 tab PO Q6HR PRN 08/27/17 08/27/17 History 5-325] Levothyroxine Sodium [Levoxyl] 400 mcg PO [place] 08/27/17 08/27/17 History Levothyroxine Sodium [Synthroid] 200 mcg PO MOTUWETHFRSA 08/27/17 08/27/17 History Pantoprazole [Protonix] 40 mg PO BID 08/27/17 08/27/17 History Polyethylene Glycol 3350 [Miralax] 17 gm PO DAILY PRN 08/27/17 08/27/17 History Potassium Chloride [K-Tab ER] 20 meq PO DAILY 08/27/17 08/27/17 History Promethazine HCl 12.5 mg PO Q6H PRN 08/27/17 08/27/17 History Sertraline [Zoloft] 100 mg PO DAILY 08/27/17 08/27/17 History buPROPion HCL [Wellbutrin SR] 150 mg PO BID 08/27/17 08/27/17 History Allergies Allergy/AdvReac Type Severity Reaction Status Date / Time Penicillins Allergy Swelling Verified 08/27/17 07:48 Physical Exam Vitals: Vital Signs Temp Pulse Pulse Resp BP Pulse Ox 08/27/17 15:54 96 08/27/17 15:19 94 08/27/17 15:00 95 13 100 08/27/17 14:00 100 21 100 08/27/17 13:00 98 22 99 08/27/17 12:02 96 08/27/17 12:00 93.5 F L 94 97 20 66/50 100 08/27/17 11:50 95 08/27/17 11:00 96 21 75/55 96 08/27/17 10:00 105 H 22 73/50 99 08/27/17 09:08 92.6 F L 96 20 100 08/27/17 08:41 94 14 94/58 97 08/27/17 07:48 94 16 113/66 100 08/27/17 06:50 92 08/27/17 06:43 91 08/27/17 06:39 94 14 127/70 100 08/27/17 06:26 89 14 102/62 100 08/27/17 06:08 60 14 97/69 97 08/27/17 05:45 85 14 78/53 100 08/27/17 05:29 92 20 81/56 97 08/27/17 05:07 48 L 08/27/17 04:38 97 34 H 199/116 08/27/17 04:19 96.6 F L 64 28 H 93 L Intake and Output 08/27/17 08/27/17 08/27/17 06:59 14:59 22:59 Intake Total 2.961 320 110 Output Total 15 Balance 2.961 305 110 Intake: IV 320 110 Dextrose 5% in Water 1, 100 000 ml @ 100 mls/hr IV . [id number] ONE with Sodium Bicarb (1 Meq/ml) 150 ml Rx#:[id number] Dextrose 5% in Water 1, 200 100 000 ml @ 100 mls/hr IV . [id number] ALEXANDRA with Sodium Bicarb (1 Meq/ml) 150 ml Rx#:[id number] Sodium Chloride 0.9% 1, 20 10 000 ml @ 100 mls/hr IV . Q10H STA Rx#:[id number] Intake, IV Titration 2.961 Amount EPINEPHrine 2 mg In 2.961 Dextrose 5% in Water 250 ml @ 2 MCG/MIN 15.12 mls/ hr IV .[id number] ONE Rx#: [id number] Output: Urine 15 Other: Voiding Method Indwelling Catheter Weight 56.245 kg ABP, PAP, CO, CI - Last 8 Hours Arterial Blood Pressure 100/61 Arterial Blood Pressure 112/58 Arterial Blood Pressure 102/55 Arterial Blood Pressure 93/52 Arterial Blood Pressure 93/45 Arterial Blood Pressure 2/2 PHYSICAL EXAMINATION: GENERAL: Intubated sedated sedated on epinephrine. HEENT: Pupils are round and equally reacting to light. EOMI. No scleral icterus. No conjunctival pallor. Normocephalic, atraumatic. No pharyngeal erythema. No thyromegaly. CARDIOVASCULAR: S1 and S2 present. No murmurs, rubs, or gallops. Tachycardic PULMONARY: Good air entry treatment with mechanical ventilator sounds and bibasilar crackles are appreciated ABDOMEN: Soft, nontender, nondistended, normoactive bowel sounds. No palpable organomegaly. MUSCULOSKELETAL: No joint swelling or deformity. EXTREMITIES: Multiple ulcerations in bilateral lower limbs and wounds please refer to nursing documentation for further details, markedly diminished bilateral dorsalis pedis pulses and dry gangrene of third and fourth right toes NEUROLOGICAL: Intubated and sedated SKIN: No rashes. Results CBC & Chem 7: 08/27/17 10:35 08/27/17 10:35 Labs: Abnormal Lab Results - Last 24 Hours (Table) 08/27/17 08/27/17 08/27/17 Range/Units 04:44 04:44 04:44 WBC 14.2 H (3.8-10.6) k/uL RBC 3.14 L (3.80-5.40) m/uL Hgb 8.9 L (11.4-16.0) gm/dL Hct 30.2 L (34.0-46.0) % MCHC 29.5 L (31.0-37.0) g/dL RDW 15.8 H (11.5-15.5) % Plt Count 540 H (150-450) k/uL Neutrophils # 12.0 H (1.3-7.7) k/uL Lymphocytes # (1.0-4.8) k/uL PT (9.0-12.0) sec INR (<1.2) APTT (22.0-30.0) sec D-Dimer (<0.60) mg/L FEU ABG pH (7.35-7.45) ABG pCO2 (35-45) mmHg ABG pO2 (83-108) mmHg ABG HCO3 (21-25) mmol/L ABG Total CO2 (19-24) mmol/L ABG O2 Saturation (94-97) % ABG Lactic Acid (0.5-1.6) mmol/L Sodium (137-145) mmol/L Potassium 6.5 H* (3.5-5.1) mmol/L Chloride 112 H (98-107) mmol/L Carbon Dioxide 5 L* (22-30) mmol/L BUN 105 H* (7-17) mg/dL Creatinine 9.44 H* (0.52-1.04) mg/dL Glucose 194 H (74-99) mg/dL POC Glucose (mg/dL) (75-99) mg/dL Calcium 6.7 L (8.4-10.2) mg/dL Total Creatine Kinase 181 H (30-135) U/L CK-MB (CK-2) 6.7 H* (0.0-2.4) ng/mL Troponin I 1.240 H* (0.000-0.034) ng/mL Total Protein 4.8 L (6.3-8.2) g/dL Albumin 2.3 L (3.5-5.0) g/dL TSH (0.465-4.680) mIU/L Free T4 (0.78-2.19) ng/dL 08/27/17 08/27/17 08/27/17 Range/Units 04:44 05:36 07:27 WBC (3.8-10.6) k/uL RBC (3.80-5.40) m/uL Hgb (11.4-16.0) gm/dL Hct (34.0-46.0) % MCHC (31.0-37.0) g/dL RDW (11.5-15.5) % Plt Count (150-450) k/uL Neutrophils # (1.3-7.7) k/uL Lymphocytes # (1.0-4.8) k/uL PT 12.6 H (9.0-12.0) sec INR 1.3 H (<1.2) APTT (22.0-30.0) sec D-Dimer 5.03 H (<0.60) mg/L FEU ABG pH 7.07 L* (7.35-7.45) ABG pCO2 32 L (35-45) mmHg ABG pO2 301 H (83-108) mmHg ABG HCO3 9 L* (21-25) mmol/L ABG Total CO2 10 L (19-24) mmol/L ABG O2 Saturation 98.6 H (94-97) % ABG Lactic Acid (0.5-1.6) mmol/L Sodium (137-145) mmol/L Potassium 7.1 H* (3.5-5.1) mmol/L Chloride (98-107) mmol/L Carbon Dioxide (22-30) mmol/L BUN (7-17) mg/dL Creatinine (0.52-1.04) mg/dL Glucose (74-99) mg/dL POC Glucose (mg/dL) (75-99) mg/dL Calcium (8.4-10.2) mg/dL Total Creatine Kinase (30-135) U/L CK-MB (CK-2) (0.0-2.4) ng/mL Troponin I (0.000-0.034) ng/mL Total Protein (6.3-8.2) g/dL Albumin (3.5-5.0) g/dL TSH (0.465-4.680) mIU/L Free T4 (0.78-2.19) ng/dL 08/27/17 08/27/17 08/27/17 Range/Units 09:07 10:35 10:35 WBC 17.0 H (3.8-10.6) k/uL RBC 2.89 L (3.80-5.40) m/uL Hgb 8.3 L (11.4-16.0) gm/dL Hct 26.8 L (34.0-46.0) % MCHC 30.8 L (31.0-37.0) g/dL RDW 15.9 H (11.5-15.5) % Plt Count 464 H (150-450) k/uL Neutrophils # 15.6 H (1.3-7.7) k/uL Lymphocytes # 0.7 L (1.0-4.8) k/uL PT (9.0-12.0) sec INR (<1.2) APTT (22.0-30.0) sec D-Dimer (<0.60) mg/L FEU ABG pH (7.35-7.45) ABG pCO2 (35-45) mmHg ABG pO2 (83-108) mmHg ABG HCO3 (21-25) mmol/L ABG Total CO2 (19-24) mmol/L ABG O2 Saturation (94-97) % ABG Lactic Acid (0.5-1.6) mmol/L Sodium 147 H (137-145) mmol/L Potassium (3.5-5.1) mmol/L Chloride 112 H (98-107) mmol/L Carbon Dioxide 12 L (22-30) mmol/L BUN 104 H* (7-17) mg/dL Creatinine 8.87 H* (0.52-1.04) mg/dL Glucose 211 H (74-99) mg/dL POC Glucose (mg/dL) 213 H (75-99) mg/dL Calcium 6.9 L (8.4-10.2) mg/dL Total Creatine Kinase (30-135) U/L CK-MB (CK-2) (0.0-2.4) ng/mL Troponin I (0.000-0.034) ng/mL Total Protein (6.3-8.2) g/dL Albumin (3.5-5.0) g/dL TSH (0.465-4.680) mIU/L Free T4 (0.78-2.19) ng/dL 08/27/17 08/27/17 08/27/17 Range/Units 10:35 10:35 10:35 WBC (3.8-10.6) k/uL RBC (3.80-5.40) m/uL Hgb (11.4-16.0) gm/dL Hct (34.0-46.0) % MCHC (31.0-37.0) g/dL RDW (11.5-15.5) % Plt Count (150-450) k/uL Neutrophils # (1.3-7.7) k/uL Lymphocytes # (1.0-4.8) k/uL PT (9.0-12.0) sec INR (<1.2) APTT (22.0-30.0) sec D-Dimer (<0.60) mg/L FEU ABG pH (7.35-7.45) ABG pCO2 (35-45) mmHg ABG pO2 (83-108) mmHg ABG HCO3 (21-25) mmol/L ABG Total CO2 (19-24) mmol/L ABG O2 Saturation (94-97) % ABG Lactic Acid 5.7 H* (0.5-1.6) mmol/L Sodium (137-145) mmol/L Potassium (3.5-5.1) mmol/L Chloride (98-107) mmol/L Carbon Dioxide (22-30) mmol/L BUN (7-17) mg/dL Creatinine (0.52-1.04) mg/dL Glucose (74-99) mg/dL POC Glucose (mg/dL) (75-99) mg/dL Calcium (8.4-10.2) mg/dL Total Creatine Kinase 233 H (30-135) U/L CK-MB (CK-2) 16.6 H* (0.0-2.4) ng/mL Troponin I 2.340 H* (0.000-0.034) ng/mL Total Protein (6.3-8.2) g/dL Albumin (3.5-5.0) g/dL TSH >100.000 H (0.465-4.680) mIU/L Free T4 0.74 L (0.78-2.19) ng/dL 08/27/17 08/27/17 Range/Units 10:44 15:00 WBC (3.8-10.6) k/uL RBC (3.80-5.40) m/uL Hgb (11.4-16.0) gm/dL Hct (34.0-46.0) % MCHC (31.0-37.0) g/dL RDW (11.5-15.5) % Plt Count (150-450) k/uL Neutrophils # (1.3-7.7) k/uL Lymphocytes # (1.0-4.8) k/uL PT (9.0-12.0) sec INR (<1.2) APTT 89.7 H (22.0-30.0) sec D-Dimer (<0.60) mg/L FEU ABG pH 7.22 L (7.35-7.45) ABG pCO2 27 L (35-45) mmHg ABG pO2 (83-108) mmHg ABG HCO3 11 L (21-25) mmol/L ABG Total CO2 12 L (19-24) mmol/L ABG O2 Saturation (94-97) % ABG Lactic Acid (0.5-1.6) mmol/L Sodium (137-145) mmol/L Potassium (3.5-5.1) mmol/L Chloride (98-107) mmol/L Carbon Dioxide (22-30) mmol/L BUN (7-17) mg/dL Creatinine (0.52-1.04) mg/dL Glucose (74-99) mg/dL POC Glucose (mg/dL) (75-99) mg/dL Calcium (8.4-10.2) mg/dL Total Creatine Kinase (30-135) U/L CK-MB (CK-2) (0.0-2.4) ng/mL Troponin I (0.000-0.034) ng/mL Total Protein (6.3-8.2) g/dL Albumin (3.5-5.0) g/dL TSH (0.465-4.680) mIU/L Free T4 (0.78-2.19) ng/dL Thrombosis Risk Factor Assmnt - Choose All That Apply Any of the Below Risk Factors Present?: Yes Each Factor Represents 1 point: Abnormal pulmonary function (COPD), Acute PR, Medical pt on bed rest, Serious lung disease incl. pneumonia (< 1month) Other Risk Factors: Yes Each Risk Factor Represents 2 Points: Age 61-74 years, Patient confined to bed Other congenital or acquired thrombophilia - If yes, enter type in comment: No Thrombosis Risk Factor Assessment Total Risk Factor Score: 8 Thrombosis Risk Factor Assessment Level: High Risk Assessment and Plan Plan: -Septic shock with possibility of cardiac shock: Patient is on broad-spectrum antibiotics. Patient is intubated at this point of time because of which patient is not receiving Lasix because of the sharp patient is on gentle hydration with process support -Acute hypoxic respiratory failure secondary to sepsis patient is presently intubated on assist-control ventilation -Possibility of non-ST elevation myocardial infarction with troponin can be related to sepsis, cardiology is following the patient -End-stage renal disease for toenail dialysis dependent may require hemodialysis now -Hyperkalemia secondary to severe metabolic acidosis along with end-stage renal disease which improved now with capsulate -Severe peripheral vascular disease with dry gangrene as mentioned above -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
[2017-08-27 16:48] LABS: Creatine Kinase MB 33.3 ng/mL (0.0-2.4); Troponin I 7.19 ng/mL (0.000-0.034)
--- NOTE | 2017-08-27 17:00 | CT ---
EXAMINATION TYPE: CT brain wo con DATE OF EXAM: 08/27/2017 HISTORY: Pt found on floor and confused, pupil changes CT DLP: 1072.3 mGycm. Automated Exposure Control for Dose Reduction was Utilized. TECHNIQUE: CT scan of the head is performed without contrast. COMPARISON: CT brain earlier today. FINDINGS: Endotracheal and orogastric tubes are partially imaged on localizer view similar to prior There is no acute intracranial hemorrhage or midline shift identified. There is diffuse ventricular a nd sulcal prominence consistent with diffuse age-related cerebral atrophy. There is low-attenuation in the periventricular white matter consistent with chronic small vessel ischemic change. The globes are intact and the visualized sinuses are clear. Soft tissue scalp vascular calcification is redem onstrated. IMPRESSION: No acute intracranial hemorrhage or midline shift. There is persistent mild to moderate diffuse age-related cerebral atrophy and chronic small vessel ischemic change redemonstrated. There is no significant interval change from prior.
--- NOTE | 2017-08-27 17:08 | CT ---
EXAMINATION TYPE: CT chest angio for PE DATE OF EXAM: 08/27/2017 COMPARISON: NONE HISTORY: Pt found on floor and confused CT DLP: 423.1 mGycm. Automated Exposure Control for Dose Reduction was Utilized. CONTRAST: CTA scan of the thorax is performed with IV Contrast, patient injected with 100 mL of Isovue 370, pul monary embolism protocol. MIP Images are created on CT scanner and reviewed. FINDINGS: LUNGS: There is significant respiratory motion artifact making evaluation suboptimal particularly for small nodules there are small to moderate-sized bilateral pleural effusions with associated compress daphney atelectasis. There is central consolidation and/or edema seen bilaterally with some more multifoc al groundglass opacities peripheral to this. No pneumothorax is present bilaterally. Endotracheal tub e terminates above [place]. MEDIASTINUM: There is satisfactory enhancement of the pulmonary artery and its branches, there is no CT evidence for pulmonary embolism. There are no greater than 1 cm hilar or mediastinal lymph nodes . No cardiomegaly or pericardial effusion is seen. There is severe [place] coronary artery calcifica tion but there is post CABG changes with mediastinal clips and sternal wires seen. There is mild to m oderate left atrial left ventricular dilatation. There is orogastric tube projecting below diaphragm. OTHER: Visualized liver is small in size with surrounding ascites. There is ascites surrounding the s pleen. There is calcification in the wall of the stomach of uncertain etiology or significance. There is extensive small vessel vascular calcification. There is S-shaped scoliotic curvature with multile hector moderate to severe spurring. IMPRESSION: 1. No CT evidence for acute pulmonary embolism 2. Suboptimal study but underlying CHF exacerbation is felt present as there are small to moderate-si zed bilateral pleural effusions with central edema felt present bilaterally, underlying infiltrates c annot be excluded. Correlate clinically. 3. Possible underlying cirrhosis with abdominal ascites noted. Correlate clinically.
[2017-08-27 17:55] LABS: Calcium 6.6 mg/dL (8.4-10.2); Potassium 4.6 mmol/L (3.5-5.1)
[2017-08-27] MEDS ORDERED: INSULIN ASPART 100 UNIT/ML 1 ML 10 ML VIAL SQ SCH ×2 (19:30→20:18)
[2017-08-27 20:21] LABS: Amorphous Sediment,Urine Few /hpf; Appearance,Urine Cloudy (Clear); Bilirubin,Urine Negative (Negative); Blood,Urine Small (Negative); Color,Urine Yellow; Glucose,Urine (UA) 3+ (Negative); Hyaline Casts,Urine 3 /lpf (0-2); Ketones,Urine Negative (Negative); Leukocyte Esterase,Urine Small (Negative); Mucus,Urine Rare /hpf; Nitrite,Urine Negative (Negative); Protein,Urine 1+ (Negative); RBC,Urine 1 /hpf (0-5); Squamous Epithelial Cell,Urine 11 /hpf (0-4); Urobilinogen,Urine <2.0 mg/dL (<2.0); WBC,Urine 12 /hpf (0-5)
[2017-08-27 20:40] LABS: Glucose,Whole Blood 408 mg/dL (75-99)
[2017-08-27] MEDS: CHLORHEXIDINE GLUCONATE 15 ML CUP MUCOUS MEM SCH (20:47)
[2017-08-27 23:25] LABS: Glucose,Whole Blood 401 mg/dL (75-99)
[2017-08-27] MEDS ORDERED: INSULIN REGULAR BOLUS (FROM DRIP BAG) IV PRN (23:41)
[2017-08-27] MEDS ORDERED: INSULIN REGULAR 100 UNIT in SODIUM CHLORIDE 0.9% 100 ML IV SCH (23:45)
[2017-08-28] MEDS ORDERED: INSULIN ASPART 100 UNIT/ML 1 ML 10 ML VIAL SQ SCH
[2017-08-28] MEDS: DIALYSIS (PERIT 1.5%) 2,000 ML 30 G/2,000 ML BAG INTRAPERIT SCH ×3 (00:09→11:57)
[2017-08-28 00:57] LABS: Glucose,Whole Blood 375 mg/dL (75-99)
[2017-08-28 01:17] LABS: Hemoglobin A1C 5.2 % (4.0-6.0)
[2017-08-28 02:12] LABS: Glucose,Whole Blood 364 mg/dL (75-99)
[2017-08-28 02:54] LABS: Glucose,Whole Blood 322 mg/dL (75-99)
[2017-08-28] MEDS: PROPOFOL 1,000 MG in EMPTY BAG 1 BAG IV SCH ×4 (03:24→20:39)
[2017-08-28] MEDS: EPINEPHrine 2 MG in DEXTROSE 5% IN WATER 250 ML IV SCH ×8 (03:50→22:23)
[2017-08-28 03:57] LABS: Glucose,Whole Blood 288 mg/dL (75-99)
[2017-08-28 04:22] LABS: Anisocytosis Slight; Basophils % (A) 0 %; Eosinophils % (A) 0 %; HCT 22.4 % (34.0-46.0); HGB 7.2 gm/dL (11.4-16.0); Lymphocytes # (A) 0.9 k/uL (1.0-4.8); Lymphocytes % (A) 8 %; MCV 90.6 fL (80.0-100.0); Mean Platelet Volume 7.4; Monocytes # (A) 0.3 k/uL (0-1.0); Monocytes % (A) 3 %; Neutrophils # (A) 10.5 k/uL (1.3-7.7); Neutrophils % (A) 89 %; Platelet Count 375 k/uL (150-450); RBC 2.47 m/uL (3.80-5.40); RDW 16.2 % (11.5-15.5); WBC 11.9 k/uL (3.8-10.6)
[2017-08-28 04:32] LABS: Magnesium 1.9 mg/dL (1.6-2.3); Potassium 3.7 mmol/L (3.5-5.1)
[2017-08-28 04:42] LABS: Calcium 6.4 mg/dL (8.4-10.2); Phosphorus 8.1 mg/dL (2.5-4.5)
[2017-08-28 05:06] LABS: INR 1.5 (<1.2); Partial Thromboplastin Time 43.6 sec (22.0-30.0); Prothrombin Time 13.7 sec (9.0-12.0)
[2017-08-28 05:11] LABS: Glucose,Whole Blood 213 mg/dL (75-99)
[2017-08-28] MEDS: NITROGLYCERIN OINT 1 INCH/GM PACKET TOPICAL SCH ×3 (05:15→17:47)
[2017-08-28] MEDS ORDERED: HEPARIN SODIUM,PORCINE 5,000 UNIT/ML 1 ML VIAL ONE (05:27)
[2017-08-28 05:32] LABS: ABG Base Excess -4.6 mmol/L; ABG HCO3 19 mmol/L (21-25); ABG PCO2 27 mmHg (35-45); ABG PH 7.46 (7.35-7.45); ABG PO2 130 mmHg (83-108); ABG TCO2 20 mmol/L (19-24)
[2017-08-28 06:02] LABS: Glucose,Whole Blood 171 mg/dL (75-99)
[2017-08-28] MEDS ORDERED: Potassium Replacement Protocol 1 EACH MISC MISCELLANE PRN (06:03)
[2017-08-28] MEDS: POTASSIUM CHLORIDE 10 MEQ in WATER FOR INJECTION 1 100ML.BAG IVPB SCH ×2 (06:37→11:15)
[2017-08-28 06:55] LABS: Glucose,Whole Blood 168 mg/dL (75-99)
[2017-08-28] MEDS ORDERED: SODIUM CHLORIDE 0.9% IVPB ONE (07:01)
[2017-08-28] MEDS ORDERED: CALCIUM CHLORIDE IVPB ONE (07:01)
[2017-08-28] MEDS: IPRATROPIUM-ALBUTEROL 3 ML NEB INHALATION SCH ×4 (07:47→19:24)
--- NOTE | 2017-08-28 07:48 | XR ---
EXAMINATION TYPE: XR chest 1V DATE OF EXAM: 08/28/2017 COMPARISON: 09/15/2017 HISTORY: SOB, Follow Up FINDINGS: Indwelling tubes and catheters are unchanged. No change in bibasilar opacities. Stable appearance of the cardio-mediastinal structures at this time. Pleural effusion unchanged. IMPRESSION: 1. Stable portable chest. Clinical correlation and follow up until resolution is recommended.
[2017-08-28] MEDS: MEROPENEM 1 GM in SODIUM CHLORIDE 0.9% 100 ML IVPB SCH (08:45)
[2017-08-28] MEDS ORDERED: VANCOMYCIN 1,250 MG in SODIUM CHLORIDE 0.9% 250 ML IVPB ONE (09:00)
[2017-08-28] MEDS: PANTOPRAZOLE 40 MG/10 ML VIAL IVP SCH (09:07)
[2017-08-28] MEDS: CHLORHEXIDINE GLUCONATE 15 ML CUP MUCOUS MEM SCH ×2 (09:09→21:56)
[2017-08-28] MEDS: ASPIRIN 325 MG TAB PO SCH (09:09)
[2017-08-28 09:22] LABS: Glucose,Whole Blood 152 mg/dL (75-99)
[2017-08-28] MEDS: LEVOTHYROXINE IVP 100 MCG/5 ML VIAL IV SCH (10:01)
[2017-08-28] MEDS: METOPROLOL TARTRATE 12.5 MG TAB PO SCH (10:12)
[2017-08-28 10:23] LABS: Glucose,Whole Blood 143 mg/dL (75-99)
[2017-08-28] MEDS: DEXTROSE 5% IN WATER 1,000 ML with SODIUM BICARB (1 MEQ/ML) 150 ML IV SCH (11:02)
[2017-08-28 11:28] LABS: Glucose,Whole Blood 148 mg/dL (75-99)
--- NOTE | 2017-08-28 12:07 | P.PN ---
Subjective Progress Note Date: 08/28/17 This is a 67-year-old female patient with multiple medical problems and comorbidities who presented to ED with acute respiratory distress, intubated and placed on a mechanical ventilator and then moved to the intensive care unit. The patient has taken all of her care at [facility]. She has chronic renal failure and she currently has end stage renal disease and she is seeking kidney transportation the patient has been evaluated at [facility] for potential kidney transplant the daughter being her daughter. This patient lives in [place] and she recently moved in with her daughter living in [facility], and for that reason during this current episode the patient was brought in to our hospital. All of the information was obtained is from the daughters at the bedside This patient has developed renal failure, probably related to previous history of diabetes mellitus. She was started on peritoneal dialysis approximately year ago and she does nighttime cycler continuous with a 1.5 fluid exchange. This was started on high-dose in November 2016. Hemodialysis was considered and the patient was about to have a left upper extremity AV fistula. The fistula itself got clotted and the patient developed also ulceration in her digits bilaterally and for that reason this was not pursued. Currently the patient is gangrenous necrotic digits of the middle fingers of the left and the fourth finger on the right, affecting the tips. This was investigated at length at [facility]. The patient underwent a CT angios of the entire chest abdomen pelvis and extremities and she was found to have no significant subclavian axillary or brachial artery narrowing. She was found to have diffuse atherosclerosis with calcification of the bilateral radial and ulnar arteries and mild to moderate narrowing in the areas affecting the wrist. Atherosclerotic changes were also seen in the infrarenal abdominal aortic area which was estimated to be severe. Bilateral iliofemoral atherosclerotic changes were also seen. The patient was told to have small vessel disease and based on the reported history there was no evidence of any embolic phenomena or vasculitis The patient is known to have coronary artery disease and she has undergone pleased bypass surgery. She was morbidly obese and she was diabetic. She has undergone gastric bypass surgery more than 6 years ago and she has lost considerable amount of weight and during this time the patient was taken off as soon as she improved in terms of her blood sugar control and she started having episodes of hypoglycemia. Currently she is off anticoagulation. She also has chronic atrial fibrillation, chronic renal failure and currently she is on peritoneal dialysis, she hasn't complications of hyperkalemia, and she has history of hypertension, hyperlipidemia, hypothyroidism, peripheral vascular disease and previous history of coronary artery disease and myocardial infarction. The patient was at her daughter's home where she was feeling weak. In the head machine feeder hours the patient was found by the daughter collapsed in the bathroom. No reported chest pain or palpitations. No focal neurological deficit. The patient was lethargic and she was arousable and she was able to speak. She was moving all 4 extremities according to the history. No fever. No chills. No cough or sputum production. No nausea, vomiting or abdominal pain. The PD catheter was apparently functional. No skin rashes. Necrotic digits were seen bilaterally and these are dry gangrene. In the ED, the patient was found to be hypotensive postintubation. The patient was started on IV fluids and pressors. The patient was started on epinephrine infusion. She was intubated and blood gas showed severe metabolic acidosis. The chest x-ray shows cardiomegaly and pulmonary vessel congestion. ET tube was in a good location. No consolidation . Meanwhile, the patient's white cell count was at 14.2. The patient had a potassium level of 6.5 was being treated in the emergency department with a combination of Kayexalate, D50 and insulin and bicarb and the patient was severely acidotic with anion gap metabolic acidosis with a gap of 26 and a bicarb level of 5, creatinine of 9.4, and a troponin level of 1.2. EKG is not showing any acute ischemic abnormalities and is showing a normal sinus rhythm with a left bundle-branch block pattern. Subsequent potassium level was 7.1. Waldemar saw the patient in the ICU and we're going to start peritoneal dialysis. Meanwhile the patient is being resuscitated IV fluids. We'll start empiric antibiotic coverage. We'll monitor cardiac enzymes and obtain an echocardiogram. The computed tomography scan of the brain and C-spine showed no evidence of acute fracture and there was no evidence of any acute intracranial hemorrhage. On 08/28/2018 I'm seeing this patient for a follow-up. This is a very complicated case with present it with severe metabolic acidosis, respiratory failure, hyperkalemia and hypotension. The patient is being seen today in a follow-up. The patient remains sedated on a mechanical ventilator. This morning, she doesn't assist-control at the rate of 22, tidal volume 600, FiO2 of 50% and a PEEP of 5. Blood gases showed a component of acute respiratory alkalosis and the pH was at 7.47 with a pCO2 of 27 and pO2 1:30. Based on that , I dropped the tidal volume down to 500 by mouth I also drop the FiO2 down to 40%. Chest x-ray still showing a component of pulmonary vessel congestion and small bilateral pleural effusion. CT angios the chest was done yesterday and showed cardiomegaly and bilateral pleural effusion and pulmonary vascular congestion. He was no evidence of any pulmonary embolism. The patient is only on few mics of the low-fat for hemodynamic support. Troponin peaked at 7 and the patient is still on IV heparin and aspirin.. The patient had an echocardiogram yesterday that showed severe impaired LV function with an ejection fraction of 25-30%. In addition, there was segmental wall motion abnormalities involving the inferior wall and anteroseptal wall septum. The right ventricular pressure was estimated to be 42 mmHg. There was no significant valvular abnormalities. Left atrium was dilated. There was mild aortic stenosis. The patient had cultures sent and the blood culture and the abdominal fluid culture came back all negative. She remains on a combination of vancomycin and meropenem. Afebrile. White cell count is not elevated. Infected has dropped from 17 down to 11.9. Potassium level has also dropped down to 3.7 and the patient has a bicarb level which is up to 17. Calcium level is at 6.4. Phosphorus level is at 8.1. The patient was receiving abdominal PD 4 times a day with a 1.5% solution. Furthermore, the patient was noted to be somewhat hypothyroid with a TSH of 101 100 and a free T4 of 0.74. She was placed on 100 mg of IV Synthroid on a daily basis. Her hypothermia has also recovered. She is on tube feeds for now. Family is at the bedside. Objective - Vital Signs Vital signs: Vital Signs Temp 98.1 F 08/28/17 08:00 Pulse 75 08/28/17 11:39 Resp 16 08/28/17 11:30 BP 102/61 08/28/17 11:30 Pulse Ox 100 08/28/17 11:30 Intake & Output 08/27/17 08/28/17 08/28/17 18:59 06:59 18:59 Intake Total 9879.083 1017.881 829.549 Output Total 20 155 65 Balance 0957.607 9398.881 764.549 Weight 56 kg 74.5 kg 74.5 kg Intake: IV 1150 1220 700 Dextrose 5% in Water 1, 100 000 ml @ 100 mls/hr IV . [id number] ONE with Sodium Bicarb (1 Meq/ml) 150 ml Rx#:[id number] Dextrose 5% in Water 1, 800 1100 350 000 ml @ 50 mls/hr IV . Q23H ALEXANDRA with Sodium Bicarb (1 Meq/ml) 150 ml Rx#:[id number] Meropenem 1 gm In Sodium 200 Chloride 0.9% 100 ml @ 200 mls/hr IVPB Q8HR ALEXANDRA Rx#:[id number] Potassium Chloride 10 meq 100 In Water For Injection 1 100ml.bag @ 100 mls/hr IVPB Q1H ALEXANDRA Rx#: [id number] Sodium Chloride 0.9% 1, 250 000 ml @ 100 mls/hr IV . Q10H STA Rx#:[id number] sodium chloride 0.9% 1, 120 50 000 ml KVO Intake, IV Titration 94.655 707.881 129.549 Amount EPINEPHrine 2 mg In 221.571 Dextrose 5% in Water 250 ml @ 2 MCG/MIN 15.12 mls/ hr IV .[id number] ONE Rx#: [id number] EPINEPHrine 2 mg In 33.642 35.154 Dextrose 5% in Water 250 ml @ 2 MCG/MIN 15.12 mls/ hr IV .[id number] [facility] Rx#: [id number] Heparin Sodium,Porcine/ 94.655 155.112 D5w Pmx 25,000 unit In Dextrose/Water 1 500ml. bag @ 12 UNITS/KG/HR 13. 49 mls/hr IV .Q24H [facility] Rx #:[id number] Insulin Regular 100 unit 38.043 8.485 In Sodium Chloride 0.9% 100 ml @ Per Protocol IV .Q0M ALEX[facility]DR[facility] Rx#:[id number] Meropenem 1 gm In Sodium 100 Chloride 0.9% 100 ml @ 200 mls/hr IVPB Q8HR ALEXANDRA Rx#:[id number] Propofol 1,000 mg In 159.513 85.91 Empty Bag 1 bag @ Titrate IV .Q0M [facility] Rx#: [id number] Output: Urine 20 155 65 Uretheral ([place]) 10 Other: Voiding Method Indwelling Catheter Indwelling Catheter Indwelling Catheter ABP, PAP, CO, CI - Last Documented Arterial Blood Pressure 113/53 - Exam Appearance the patient is intubated, comfortable likely distress sedated at this point Head exam was generally normal. There was no scleral icterus or corneal arcus. Mucous membranes were moist. The patient has an orogastric and orotracheal tube are both in place and secured. Neck was supple and without jugular venous distension, thyromegaly, or carotid bruits. Carotids were easily palpable bilaterally. There was no adenopathy. Lungs sounds are diminished bilaterally along with some scattered rhonchi and bilateral crackles in lung bases. No wheezing. ET tube is in a good location. Heart sounds are regular, positive S1-S2, no significant murmurs appreciated. Sternum stable treatment intact and scar of previous thoracotomy is intact. Abdominal exam revealed normal bowel sounds. The abdomen was soft, non-tender, and without masses, organomegaly, or appreciable enlargement of the abdominal aorta. The patient has a PD catheter which is in place and there is no direct tenderness or rebound tensile guarding. Extremities revealed no edema. Pulses in lower extremities are markedly diminished. The patient has necrotic digits at the tips of the digits involving the third mid finger on the left and the fourth finger on the right. There is evidence of dry gangrene. No evidence of any wound infection. The area is pretty much black and necrotic. No lower extremities edema. No cyanosis. Neurologic the patient is sedated. She is despite to deep painful stimuli. - Labs CBC & Chem 7: 08/28/17 04:00 08/28/17 04:00 Labs: Abnormal Lab Results - Last 24 Hours (Table) 08/27/17 08/27/17 08/27/17 Range/Units 10:35 10:35 15:00 WBC (3.8-10.6) k/uL RBC (3.80-5.40) m/uL Hgb (11.4-16.0) gm/dL Hct (34.0-46.0) % RDW (11.5-15.5) % Neutrophils # (1.3-7.7) k/uL Lymphocytes # (1.0-4.8) k/uL PT (9.0-12.0) sec INR (<1.2) APTT 89.7 H (22.0-30.0) sec ABG pH (7.35-7.45) ABG pCO2 (35-45) mmHg ABG pO2 (83-108) mmHg ABG HCO3 (21-25) mmol/L ABG O2 Saturation (94-97) % ABG Lactic Acid 5.7 H* (0.5-1.6) mmol/L Carbon Dioxide (22-30) mmol/L BUN (7-17) mg/dL Creatinine (0.52-1.04) mg/dL Glucose (74-99) mg/dL POC Glucose (mg/dL) (75-99) mg/dL Calcium (8.4-10.2) mg/dL Phosphorus (2.5-4.5) mg/dL Total Creatine Kinase (30-135) U/L CK-MB (CK-2) (0.0-2.4) ng/mL Troponin I (0.000-0.034) ng/mL TSH >100.000 H (0.465-4.680) mIU/L Free T4 0.74 L (0.78-2.19) ng/dL Urine Appearance (Clear) Urine Protein (Negative) Urine Glucose (UA) (Negative) Urine Blood (Negative) Ur Leukocyte Esterase (Negative) Urine WBC (0-5) /hpf Ur Squamous Epith Cells (0-4) /hpf Amorphous Sediment (None) /hpf Hyaline Casts (0-2) /lpf Urine Mucus (None) /hpf 08/27/17 08/27/17 08/27/17 Range/Units 16:01 16:01 17:33 WBC (3.8-10.6) k/uL RBC (3.80-5.40) m/uL Hgb (11.4-16.0) gm/dL Hct (34.0-46.0) % RDW (11.5-15.5) % Neutrophils # (1.3-7.7) k/uL Lymphocytes # (1.0-4.8) k/uL PT (9.0-12.0) sec INR (<1.2) APTT (22.0-30.0) sec ABG pH (7.35-7.45) ABG pCO2 (35-45) mmHg ABG pO2 (83-108) mmHg ABG HCO3 (21-25) mmol/L ABG O2 Saturation (94-97) % ABG Lactic Acid 4.2 H* (0.5-1.6) mmol/L Carbon Dioxide 14 L (22-30) mmol/L BUN 97 H* (7-17) mg/dL Creatinine 7.90 H* (0.52-1.04) mg/dL Glucose 372 H (74-99) mg/dL POC Glucose (mg/dL) (75-99) mg/dL Calcium 6.6 L (8.4-10.2) mg/dL Phosphorus (2.5-4.5) mg/dL Total Creatine Kinase 334 H (30-135) U/L CK-MB (CK-2) 33.3 H* (0.0-2.4) ng/mL Troponin I 7.190 H* (0.000-0.034) ng/mL TSH (0.465-4.680) mIU/L Free T4 (0.78-2.19) ng/dL Urine Appearance (Clear) Urine Protein (Negative) Urine Glucose (UA) (Negative) Urine Blood (Negative) Ur Leukocyte Esterase (Negative) Urine WBC (0-5) /hpf Ur Squamous Epith Cells (0-4) /hpf Amorphous Sediment (None) /hpf Hyaline Casts (0-2) /lpf Urine Mucus (None) /hpf 08/27/17 08/27/17 08/27/17 Range/Units 19:30 20:00 20:37 WBC (3.8-10.6) k/uL RBC (3.80-5.40) m/uL Hgb (11.4-16.0) gm/dL Hct (34.0-46.0) % RDW (11.5-15.5) % Neutrophils # (1.3-7.7) k/uL Lymphocytes # (1.0-4.8) k/uL PT (9.0-12.0) sec INR (<1.2) APTT 56.9 H (22.0-30.0) sec ABG pH (7.35-7.45) ABG pCO2 (35-45) mmHg ABG pO2 (83-108) mmHg ABG HCO3 (21-25) mmol/L ABG O2 Saturation (94-97) % ABG Lactic Acid (0.5-1.6) mmol/L Carbon Dioxide (22-30) mmol/L BUN (7-17) mg/dL Creatinine (0.52-1.04) mg/dL Glucose (74-99) mg/dL POC Glucose (mg/dL) 408 H (75-99) mg/dL Calcium (8.4-10.2) mg/dL Phosphorus (2.5-4.5) mg/dL Total Creatine Kinase (30-135) U/L CK-MB (CK-2) (0.0-2.4) ng/mL Troponin I (0.000-0.034) ng/mL TSH (0.465-4.680) mIU/L Free T4 (0.78-2.19) ng/dL Urine Appearance Cloudy H (Clear) Urine Protein 1+ H (Negative) Urine Glucose (UA) 3+ H (Negative) Urine Blood Small H (Negative) Ur Leukocyte Esterase Small H (Negative) Urine WBC 12 H (0-5) /hpf Ur Squamous Epith Cells 11 H (0-4) /hpf Amorphous Sediment Few H (None) /hpf Hyaline Casts 3 H (0-2) /lpf Urine Mucus Rare H (None) /hpf 08/27/17 08/28/17 08/28/17 Range/Units 23:13 00:56 02:00 WBC (3.8-10.6) k/uL RBC (3.80-5.40) m/uL Hgb (11.4-16.0) gm/dL Hct (34.0-46.0) % RDW (11.5-15.5) % Neutrophils # (1.3-7.7) k/uL Lymphocytes # (1.0-4.8) k/uL PT (9.0-12.0) sec INR (<1.2) APTT (22.0-30.0) sec ABG pH (7.35-7.45) ABG pCO2 (35-45) mmHg ABG pO2 (83-108) mmHg ABG HCO3 (21-25) mmol/L ABG O2 Saturation (94-97) % ABG Lactic Acid (0.5-1.6) mmol/L Carbon Dioxide (22-30) mmol/L BUN (7-17) mg/dL Creatinine (0.52-1.04) mg/dL Glucose (74-99) mg/dL POC Glucose (mg/dL) 401 H 375 H 364 H (75-99) mg/dL Calcium (8.4-10.2) mg/dL Phosphorus (2.5-4.5) mg/dL Total Creatine Kinase (30-135) U/L CK-MB (CK-2) (0.0-2.4) ng/mL Troponin I (0.000-0.034) ng/mL TSH (0.465-4.680) mIU/L Free T4 (0.78-2.19) ng/dL Urine Appearance (Clear) Urine Protein (Negative) Urine Glucose (UA) (Negative) Urine Blood (Negative) Ur Leukocyte Esterase (Negative) Urine WBC (0-5) /hpf Ur Squamous Epith Cells (0-4) /hpf Amorphous Sediment (None) /hpf Hyaline Casts (0-2) /lpf Urine Mucus (None) /hpf 08/28/17 08/28/17 08/28/17 Range/Units 02:53 03:55 04:00 WBC 11.9 H (3.8-10.6) k/uL RBC 2.47 L (3.80-5.40) m/uL Hgb 7.2 L (11.4-16.0) gm/dL Hct 22.4 L (34.0-46.0) % RDW 16.2 H (11.5-15.5) % Neutrophils # 10.5 H (1.3-7.7) k/uL Lymphocytes # 0.9 L (1.0-4.8) k/uL PT (9.0-12.0) sec INR (<1.2) APTT (22.0-30.0) sec ABG pH (7.35-7.45) ABG pCO2 (35-45) mmHg ABG pO2 (83-108) mmHg ABG HCO3 (21-25) mmol/L ABG O2 Saturation (94-97) % ABG Lactic Acid (0.5-1.6) mmol/L Carbon Dioxide (22-30) mmol/L BUN (7-17) mg/dL Creatinine (0.52-1.04) mg/dL Glucose (74-99) mg/dL POC Glucose (mg/dL) 322 H 288 H (75-99) mg/dL Calcium (8.4-10.2) mg/dL Phosphorus (2.5-4.5) mg/dL Total Creatine Kinase (30-135) U/L CK-MB (CK-2) (0.0-2.4) ng/mL Troponin I (0.000-0.034) ng/mL TSH (0.465-4.680) mIU/L Free T4 (0.78-2.19) ng/dL Urine Appearance (Clear) Urine Protein (Negative) Urine Glucose (UA) (Negative) Urine Blood (Negative) Ur Leukocyte Esterase (Negative) Urine WBC (0-5) /hpf Ur Squamous Epith Cells (0-4) /hpf Amorphous Sediment (None) /hpf Hyaline Casts (0-2) /lpf Urine Mucus (None) /hpf 08/28/17 08/28/17 08/28/17 Range/Units 04:00 04:00 05:09 WBC (3.8-10.6) k/uL RBC (3.80-5.40) m/uL Hgb (11.4-16.0) gm/dL Hct (34.0-46.0) % RDW (11.5-15.5) % Neutrophils # (1.3-7.7) k/uL Lymphocytes # (1.0-4.8) k/uL PT 13.7 H (9.0-12.0) sec INR 1.5 H (<1.2) APTT 43.6 H (22.0-30.0) sec ABG pH (7.35-7.45) ABG pCO2 (35-45) mmHg ABG pO2 (83-108) mmHg ABG HCO3 (21-25) mmol/L ABG O2 Saturation (94-97) % ABG Lactic Acid (0.5-1.6) mmol/L Carbon Dioxide 17 L (22-30) mmol/L BUN 91 H* (7-17) mg/dL Creatinine 6.80 H* (0.52-1.04) mg/dL Glucose 254 H (74-99) mg/dL POC Glucose (mg/dL) 213 H (75-99) mg/dL Calcium 6.4 L* (8.4-10.2) mg/dL Phosphorus 8.1 H* (2.5-4.5) mg/dL Total Creatine Kinase (30-135) U/L CK-MB (CK-2) (0.0-2.4) ng/mL Troponin I (0.000-0.034) ng/mL TSH (0.465-4.680) mIU/L Free T4 (0.78-2.19) ng/dL Urine Appearance (Clear) Urine Protein (Negative) Urine Glucose (UA) (Negative) Urine Blood (Negative) Ur Leukocyte Esterase (Negative) Urine WBC (0-5) /hpf Ur Squamous Epith Cells (0-4) /hpf Amorphous Sediment (None) /hpf Hyaline Casts (0-2) /lpf Urine Mucus (None) /hpf 08/28/17 08/28/17 08/28/17 Range/Units 05:28 06:00 06:53 WBC (3.8-10.6) k/uL RBC (3.80-5.40) m/uL Hgb (11.4-16.0) gm/dL Hct (34.0-46.0) % RDW (11.5-15.5) % Neutrophils # (1.3-7.7) k/uL Lymphocytes # (1.0-4.8) k/uL PT (9.0-12.0) sec INR (<1.2) APTT (22.0-30.0) sec ABG pH 7.46 H (7.35-7.45) ABG pCO2 27 L (35-45) mmHg ABG pO2 130 H (83-108) mmHg ABG HCO3 19 L (21-25) mmol/L ABG O2 Saturation 98.0 H (94-97) % ABG Lactic Acid (0.5-1.6) mmol/L Carbon Dioxide (22-30) mmol/L BUN (7-17) mg/dL Creatinine (0.52-1.04) mg/dL Glucose (74-99) mg/dL POC Glucose (mg/dL) 171 H 168 H (75-99) mg/dL Calcium (8.4-10.2) mg/dL Phosphorus (2.5-4.5) mg/dL Total Creatine Kinase (30-135) U/L CK-MB (CK-2) (0.0-2.4) ng/mL Troponin I (0.000-0.034) ng/mL TSH (0.465-4.680) mIU/L Free T4 (0.78-2.19) ng/dL Urine Appearance (Clear) Urine Protein (Negative) Urine Glucose (UA) (Negative) Urine Blood (Negative) Ur Leukocyte Esterase (Negative) Urine WBC (0-5) /hpf Ur Squamous Epith Cells (0-4) /hpf Amorphous Sediment (None) /hpf Hyaline Casts (0-2) /lpf Urine Mucus (None) /hpf 08/28/17 08/28/17 08/28/17 Range/Units 09:18 10:22 11:25 WBC (3.8-10.6) k/uL RBC (3.80-5.40) m/uL Hgb (11.4-16.0) gm/dL Hct (34.0-46.0) % RDW (11.5-15.5) % Neutrophils # (1.3-7.7) k/uL Lymphocytes # (1.0-4.8) k/uL PT (9.0-12.0) sec INR (<1.2) APTT (22.0-30.0) sec ABG pH (7.35-7.45) ABG pCO2 (35-45) mmHg ABG pO2 (83-108) mmHg ABG HCO3 (21-25) mmol/L ABG O2 Saturation (94-97) % ABG Lactic Acid (0.5-1.6) mmol/L Carbon Dioxide (22-30) mmol/L BUN (7-17) mg/dL Creatinine (0.52-1.04) mg/dL Glucose (74-99) mg/dL POC Glucose (mg/dL) 152 H 143 H 148 H (75-99) mg/dL Calcium (8.4-10.2) mg/dL Phosphorus (2.5-4.5) mg/dL Total Creatine Kinase (30-135) U/L CK-MB (CK-2) (0.0-2.4) ng/mL Troponin I (0.000-0.034) ng/mL TSH (0.465-4.680) mIU/L Free T4 (0.78-2.19) ng/dL Urine Appearance (Clear) Urine Protein (Negative) Urine Glucose (UA) (Negative) Urine Blood (Negative) Ur Leukocyte Esterase (Negative) Urine WBC (0-5) /hpf Ur Squamous Epith Cells (0-4) /hpf Amorphous Sediment (None) /hpf Hyaline Casts (0-2) /lpf Urine Mucus (None) /hpf Microbiology - Last 24 Hours (Table) 08/27/17 14:10 Gram Stain - Preliminary Peritoneal Fluid Body Fluid Culture - Preliminary 08/27/17 20:00 Urine Culture - Preliminary Urine,Catheterized Assessment and Plan Plan: Assessment 1 acute hypoxic respiratory failure, multifactorial, still on that investigation. The patient is currently intubated on a mechanical ventilator. The patient's chest x-ray from today shows mild four-vessel congestion and small better pleural effusion. Overall oxygenation and acid base status is improved compared to yesterday. Please refer to the most recent blood gas. There is a component of respiratory alkalosis. The patient is currently on a respirator rate of 16 and a tidal volume was dropped down to 500. CT angios the chest showed no evidence of any pulmonary embolism 2 acute hypotension , currently on few mics of norepinephrine infusion for blood pressure support. The patient was found to have cardiomyopathy with severe impairment of the LV function with an ejection fraction of 25% in addition to an acute non-ST segment elevation myocardial infarction. 3 acute non-STEMI SD troponin peaked at 7, still on a combination of aspirin and IV heparin 4 coronary artery disease with previous coronary artery bypass surgery 5 End stage renal disease on hemodialysis via peritoneal dialysis. The patient has been on PD since November 2016. 6 acute hyperkalemia secondary to severe metabolic acidosis and the patient apparently was taking potassium supplements on outpatient basis. No EKG changes at this point in time of the patient's hyperkalemia was treated and the potassium level has completely normalized. 7 severe anion gap metabolic acidosis, concern for lactic acidosis secondary to sepsis/hypotension 8 history of obesity status post gastric bypass surgery 9 diabetes mellitus recovered following bariatric surgery and the patient is currently on no diabetic medications 10 hypertension, history of 11 hypothyroidism, chemically still hypothyroid with a TSH of more than 100 and a free T4 of 0.74 and the patient will be kept on IV Synthroid. 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 15 seeking kidney transplantation to [facility] 16 chronic anemia, normocytic 17 hypoproteinemia and hypoalbuminemia 18 hypothermia, recovered 19 severe peripheral vascular disease Plan Dropped the tidal volume down to 500. Drop the FiO2 down to 40%. Give the patient is sedation holiday and assess her mentation. SSN readiness to wean. The patient is still on IV heparin. The patient is on aspirin. Echocardiogram results were noted. We will gradually wean off the pressors as tolerated. The patient was resuscitated with a bicarb drip and her metabolic acidosis is also improved and her bicarb level is up to 17. The patient will have the bicarb drip Down to 50 mL an hour. She is now producing urine output. She is undergoing PD 4 exchanges a day at 1.5% solution. Potassium level is normalized pH is currently on IV Synthroid. Hypothermic has recovered. The patient placed on broad-spectrum antibiotic coverage. Pending cultures. Continue Merrem and vancomycin. Continue tube feeds. Not ready for further weaning and at this point in time and this may be possible with the next 24 hours. Repeat CAT scan of the head was done because of some asymmetry in her pupils and the findings were essentially negative. Case was discussed at length with the family. Condition is still critical. We'll continue to follow and make further recommendations based on her progress. Critically care evaluation, more than 35 minutes. Time with Patient: Greater than 30
[2017-08-28 12:20] LABS: Glucose,Whole Blood 151 mg/dL (75-99)
--- NOTE | 2017-08-28 12:53 | PN ---
PROGRESS NOTE Patient is seen for followup for end-stage renal disease. [facility] and is maintained on PD, which she has been on since November of 2016. Patient was admitted to the hospital with hypotension, elevated lactic acid level, severe metabolic acidosis and respiratory failure. She is currently on the vent. She is maintained on PD 1.5% solution q.6 hours. Patient is also on a bicarb drip. No source of infection has been identified yet. There were about 170 cells in the PD fluid, which is high. However, the fluid has been clear. Her TSH was noted to be more than 100. On examination today, patient is on the vent. FiO2 is down to 40%. Patient remains on epi drip, which is now at about 3-4 mcg. Blood pressure was 102/61, heart rate 92 per minute. She is afebrile. EXAMINATION OF THE HEART: S1, S2. EXAMINATION OF LUNGS: Bilateral breath sounds are heard. ABDOMEN: Soft, non-tender. Examination of lower extremities shows trace edema bilaterally. Patient has dry gangrene on her left middle finger and there is also evidence of gangrene on her right hand on the third finger. She has an AV fistula in the left upper arm. Labs from today show sodium 141, potassium 4.6, BUN 97, serum creatinine 7.9. ASSESSMENT: 1. End-stage renal disease, on peritoneal dialysis. Continue with current PD exchanges of 1.5% solution q.6 hours. However, if her blood pressure remains stable, we can try a 2.5% solution for 6 p.m., but patient still remains on epi drip. Therefore I am reluctant to increase the UF significantly. 2. Vent-dependent respiratory failure. 3. Severe metabolic acidosis, currently improving, most likely secondary to underlying sepsis. Cultures are currently pending. The WBCs were slightly on the higher side in the PD fluid. Patient is maintained on antibiotics in the form of meropenem and vancomycin. 4. Severe hypothyroidism with TSH as high as more than 100. 5. Status post [id number] myocardial infarction. 6. Possible calciphylaxis. This will need to be addressed down the road as outpatient with avoiding calcium-based phosphate binders, any vitamin D supplementation , and patient will need the AV fistula in the left arm to be ligated off. PLAN: Continue with the bicarb drip for now. Check iron studies. Thyroid supplementation cautiously, given the ME. MMODL / IJN: [id number] / APURVA
[2017-08-28 13:26] LABS: Glucose,Whole Blood 186 mg/dL (75-99)
--- NOTE | 2017-08-28 14:07 | P.PN ---
Subjective 65-year-old the being treated for acute respiratory failure secondary to sepsis source unclear possibly lower limb ulcerations or paratonia him. Patient remains intubated patient is presently on 40% FiO2 PEEP of 5 and tidal volume of 500 continues to have metabolic acidosis which improved compared to yesterday. Patient is undergoing peritoneal dialysis remains on epinephrine, propofol drip, IV heparin for possible non-ST elevation myocardial infarction, on antibiotics meropenem and vancomycin with the so for negative cultures, very minimal urine output, hypotension improved, possibility of a superimposed cardiac sharp with bilateral pleural effusions Objective - Vital Signs Vital signs: Vital Signs Temp 98.8 F 08/28/17 12:00 Pulse 76 08/28/17 13:00 Resp 16 08/28/17 13:00 BP 87/57 08/28/17 13:00 Pulse Ox 97 08/28/17 13:00 Intake & Output 08/27/17 08/28/17 08/28/17 18:59 06:59 18:59 Intake Total 2560.128 0991.881 1374.071 Output Total 20 155 97 Balance 8244.252 1769.881 1277.071 Weight 56 kg 74.5 kg 74.5 kg Intake: IV 1150 1220 1070 Dextrose 5% in Water 1, 100 000 ml @ 100 mls/hr IV . [id number] ONE with Sodium Bicarb (1 Meq/ml) 150 ml Rx#:[id number] Dextrose 5% in Water 1, 800 1100 450 000 ml @ 50 mls/hr IV . Q23H ALEXANDRA with Sodium Bicarb (1 Meq/ml) 150 ml Rx#:[id number] Meropenem 1 gm In Sodium 200 Chloride 0.9% 100 ml @ 200 mls/hr IVPB Q8HR ALEXANDRA Rx#:[id number] Potassium Chloride 10 meq 100 In Water For Injection 1 100ml.bag @ 100 mls/hr IVPB Q1H [facility]LEX[facility]DRA Rx#: [id number] Sodium Chloride 0.9% 1, 250 000 ml @ 100 mls/hr IV . Q10H STA Rx#:[id number] Vancomycin 1,250 mg In 250 Sodium Chloride 0.9% 250 ml @ 125 mls/hr IVPB ONCE ONE Rx#:[id number] sodium chloride 0.9% 1, 120 70 000 ml KVO Intake, IV Titration 94.655 707.881 304.071 Amount EPINEPHrine 2 mg In 221.571 Dextrose 5% in Water 250 ml @ 2 MCG/MIN 15.12 mls/ hr IV .[id number] [facility] Rx#: [id number] EPINEPHrine 2 mg In 33.642 195.426 Dextrose 5% in Water 250 ml @ 2 MCG/MIN 15.12 mls/ hr IV .[id number] [facility] Rx#: [id number] Heparin Sodium,Porcine/ 94.655 155.112 D5w Pmx 25,000 unit In Dextrose/Water 1 500ml. bag @ 12 UNITS/KG/HR 13. 49 mls/hr IV .Q24H ALEX[facility]DR[facility] Rx #:[id number] Insulin Regular 100 unit 38.043 10.135 In Sodium Chloride 0.9% 100 ml @ Per Protocol IV .Q0M [facility] Rx#:[id number] Meropenem 1 gm In Sodium 100 Chloride 0.9% 100 ml @ 200 mls/hr IVPB Q8HR [facility] Rx#:[id number] Propofol 1,000 mg In 159.513 98.51 Empty Bag 1 bag @ Titrate IV .Q0M [facility] Rx#: [id number] Output: Urine 20 155 97 Uretheral ([place]) 10 Other: Voiding Method Indwelling Catheter Indwelling Catheter Indwelling Catheter ABP, PAP, CO, CI - Last Documented Arterial Blood Pressure 124/57 - Exam PHYSICAL EXAMINATION: GENERAL: Intubated sedated sedated on epinephrine. HEENT: Pupils are round and equally reacting to light. EOMI. No scleral icterus. No conjunctival pallor. Normocephalic, atraumatic. No pharyngeal erythema. No thyromegaly. CARDIOVASCULAR: S1 and S2 present. No murmurs, rubs, or gallops. Tachycardic PULMONARY: Good air entry treatment with mechanical ventilator sounds and bibasilar crackles are appreciated ABDOMEN: Soft, nontender, nondistended, normoactive bowel sounds. No palpable organomegaly. MUSCULOSKELETAL: No joint swelling or deformity. EXTREMITIES: Multiple ulcerations in bilateral lower limbs and wounds please refer to nursing documentation for further details, markedly diminished bilateral dorsalis pedis pulses and dry gangrene of third and fourth right toes NEUROLOGICAL: Intubated and sedated SKIN: No rashes. - Labs CBC & Chem 7: 08/28/17 04:00 08/28/17 11:29 Labs: Abnormal Lab Results - Last 24 Hours (Table) 08/27/17 08/27/17 08/27/17 Range/Units 10:35 10:35 15:00 WBC (3.8-10.6) k/uL RBC (3.80-5.40) m/uL Hgb (11.4-16.0) gm/dL Hct (34.0-46.0) % RDW (11.5-15.5) % Neutrophils # (1.3-7.7) k/uL Lymphocytes # (1.0-4.8) k/uL PT (9.0-12.0) sec INR (<1.2) APTT 89.7 H (22.0-30.0) sec ABG pH (7.35-7.45) ABG pCO2 (35-45) mmHg ABG pO2 (83-108) mmHg ABG HCO3 (21-25) mmol/L ABG O2 Saturation (94-97) % ABG Lactic Acid 5.7 H* (0.5-1.6) mmol/L Carbon Dioxide (22-30) mmol/L BUN (7-17) mg/dL Creatinine (0.52-1.04) mg/dL Glucose (74-99) mg/dL POC Glucose (mg/dL) (75-99) mg/dL Calcium (8.4-10.2) mg/dL Phosphorus (2.5-4.5) mg/dL Total Creatine Kinase (30-135) U/L CK-MB (CK-2) (0.0-2.4) ng/mL Troponin I (0.000-0.034) ng/mL TSH >100.000 H (0.465-4.680) mIU/L Free T4 0.74 L (0.78-2.19) ng/dL Urine Appearance (Clear) Urine Protein (Negative) Urine Glucose (UA) (Negative) Urine Blood (Negative) Ur Leukocyte Esterase (Negative) Urine WBC (0-5) /hpf Ur Squamous Epith Cells (0-4) /hpf Amorphous Sediment (None) /hpf Hyaline Casts (0-2) /lpf Urine Mucus (None) /hpf 08/27/17 08/27/17 08/27/17 Range/Units 16:01 16:01 17:33 WBC (3.8-10.6) k/uL RBC (3.80-5.40) m/uL Hgb (11.4-16.0) gm/dL Hct (34.0-46.0) % RDW (11.5-15.5) % Neutrophils # (1.3-7.7) k/uL Lymphocytes # (1.0-4.8) k/uL PT (9.0-12.0) sec INR (<1.2) APTT (22.0-30.0) sec ABG pH (7.35-7.45) ABG pCO2 (35-45) mmHg ABG pO2 (83-108) mmHg ABG HCO3 (21-25) mmol/L ABG O2 Saturation (94-97) % ABG Lactic Acid 4.2 H* (0.5-1.6) mmol/L Carbon Dioxide 14 L (22-30) mmol/L BUN 97 H* (7-17) mg/dL Creatinine 7.90 H* (0.52-1.04) mg/dL Glucose 372 H (74-99) mg/dL POC Glucose (mg/dL) (75-99) mg/dL Calcium 6.6 L (8.4-10.2) mg/dL Phosphorus (2.5-4.5) mg/dL Total Creatine Kinase 334 H (30-135) U/L CK-MB (CK-2) 33.3 H* (0.0-2.4) ng/mL Troponin I 7.190 H* (0.000-0.034) ng/mL TSH (0.465-4.680) mIU/L Free T4 (0.78-2.19) ng/dL Urine Appearance (Clear) Urine Protein (Negative) Urine Glucose (UA) (Negative) Urine Blood (Negative) Ur Leukocyte Esterase (Negative) Urine WBC (0-5) /hpf Ur Squamous Epith Cells (0-4) /hpf Amorphous Sediment (None) /hpf Hyaline Casts (0-2) /lpf Urine Mucus (None) /hpf 08/27/17 08/27/17 08/27/17 Range/Units 19:30 20:00 20:37 WBC (3.8-10.6) k/uL RBC (3.80-5.40) m/uL Hgb (11.4-16.0) gm/dL Hct (34.0-46.0) % RDW (11.5-15.5) % Neutrophils # (1.3-7.7) k/uL Lymphocytes # (1.0-4.8) k/uL PT (9.0-12.0) sec INR (<1.2) APTT 56.9 H (22.0-30.0) sec ABG pH (7.35-7.45) ABG pCO2 (35-45) mmHg ABG pO2 (83-108) mmHg ABG HCO3 (21-25) mmol/L ABG O2 Saturation (94-97) % ABG Lactic Acid (0.5-1.6) mmol/L Carbon Dioxide (22-30) mmol/L BUN (7-17) mg/dL Creatinine (0.52-1.04) mg/dL Glucose (74-99) mg/dL POC Glucose (mg/dL) 408 H (75-99) mg/dL Calcium (8.4-10.2) mg/dL Phosphorus (2.5-4.5) mg/dL Total Creatine Kinase (30-135) U/L CK-MB (CK-2) (0.0-2.4) ng/mL Troponin I (0.000-0.034) ng/mL TSH (0.465-4.680) mIU/L Free T4 (0.78-2.19) ng/dL Urine Appearance Cloudy H (Clear) Urine Protein 1+ H (Negative) Urine Glucose (UA) 3+ H (Negative) Urine Blood Small H (Negative) Ur Leukocyte Esterase Small H (Negative) Urine WBC 12 H (0-5) /hpf Ur Squamous Epith Cells 11 H (0-4) /hpf Amorphous Sediment Few H (None) /hpf Hyaline Casts 3 H (0-2) /lpf Urine Mucus Rare H (None) /hpf 08/27/17 08/28/17 08/28/17 Range/Units 23:13 00:56 02:00 WBC (3.8-10.6) k/uL RBC (3.80-5.40) m/uL Hgb (11.4-16.0) gm/dL Hct (34.0-46.0) % RDW (11.5-15.5) % Neutrophils # (1.3-7.7) k/uL Lymphocytes # (1.0-4.8) k/uL PT (9.0-12.0) sec INR (<1.2) APTT (22.0-30.0) sec ABG pH (7.35-7.45) ABG pCO2 (35-45) mmHg ABG pO2 (83-108) mmHg ABG HCO3 (21-25) mmol/L ABG O2 Saturation (94-97) % ABG Lactic Acid (0.5-1.6) mmol/L Carbon Dioxide (22-30) mmol/L BUN (7-17) mg/dL Creatinine (0.52-1.04) mg/dL Glucose (74-99) mg/dL POC Glucose (mg/dL) 401 H 375 H 364 H (75-99) mg/dL Calcium (8.4-10.2) mg/dL Phosphorus (2.5-4.5) mg/dL Total Creatine Kinase (30-135) U/L CK-MB (CK-2) (0.0-2.4) ng/mL Troponin I (0.000-0.034) ng/mL TSH (0.465-4.680) mIU/L Free T4 (0.78-2.19) ng/dL Urine Appearance (Clear) Urine Protein (Negative) Urine Glucose (UA) (Negative) Urine Blood (Negative) Ur Leukocyte Esterase (Negative) Urine WBC (0-5) /hpf Ur Squamous Epith Cells (0-4) /hpf Amorphous Sediment (None) /hpf Hyaline Casts (0-2) /lpf Urine Mucus (None) /hpf 08/28/17 08/28/17 08/28/17 Range/Units 02:53 03:55 04:00 WBC 11.9 H (3.8-10.6) k/uL RBC 2.47 L (3.80-5.40) m/uL Hgb 7.2 L (11.4-16.0) gm/dL Hct 22.4 L (34.0-46.0) % RDW 16.2 H (11.5-15.5) % Neutrophils # 10.5 H (1.3-7.7) k/uL Lymphocytes # 0.9 L (1.0-4.8) k/uL PT (9.0-12.0) sec INR (<1.2) APTT (22.0-30.0) sec ABG pH (7.35-7.45) ABG pCO2 (35-45) mmHg ABG pO2 (83-108) mmHg ABG HCO3 (21-25) mmol/L ABG O2 Saturation (94-97) % ABG Lactic Acid (0.5-1.6) mmol/L Carbon Dioxide (22-30) mmol/L BUN (7-17) mg/dL Creatinine (0.52-1.04) mg/dL Glucose (74-99) mg/dL POC Glucose (mg/dL) 322 H 288 H (75-99) mg/dL Calcium (8.4-10.2) mg/dL Phosphorus (2.5-4.5) mg/dL Total Creatine Kinase (30-135) U/L CK-MB (CK-2) (0.0-2.4) ng/mL Troponin I (0.000-0.034) ng/mL TSH (0.465-4.680) mIU/L Free T4 (0.78-2.19) ng/dL Urine Appearance (Clear) Urine Protein (Negative) Urine Glucose (UA) (Negative) Urine Blood (Negative) Ur Leukocyte Esterase (Negative) Urine WBC (0-5) /hpf Ur Squamous Epith Cells (0-4) /hpf Amorphous Sediment (None) /hpf Hyaline Casts (0-2) /lpf Urine Mucus (None) /hpf 08/28/17 08/28/17 08/28/17 Range/Units 04:00 04:00 05:09 WBC (3.8-10.6) k/uL RBC (3.80-5.40) m/uL Hgb (11.4-16.0) gm/dL Hct (34.0-46.0) % RDW (11.5-15.5) % Neutrophils # (1.3-7.7) k/uL Lymphocytes # (1.0-4.8) k/uL PT 13.7 H (9.0-12.0) sec INR 1.5 H (<1.2) APTT 43.6 H (22.0-30.0) sec ABG pH (7.35-7.45) ABG pCO2 (35-45) mmHg ABG pO2 (83-108) mmHg ABG HCO3 (21-25) mmol/L ABG O2 Saturation (94-97) % ABG Lactic Acid (0.5-1.6) mmol/L Carbon Dioxide 17 L (22-30) mmol/L BUN 91 H* (7-17) mg/dL Creatinine 6.80 H* (0.52-1.04) mg/dL Glucose 254 H (74-99) mg/dL POC Glucose (mg/dL) 213 H (75-99) mg/dL Calcium 6.4 L* (8.4-10.2) mg/dL Phosphorus 8.1 H* (2.5-4.5) mg/dL Total Creatine Kinase (30-135) U/L CK-MB (CK-2) (0.0-2.4) ng/mL Troponin I (0.000-0.034) ng/mL TSH (0.465-4.680) mIU/L Free T4 (0.78-2.19) ng/dL Urine Appearance (Clear) Urine Protein (Negative) Urine Glucose (UA) (Negative) Urine Blood (Negative) Ur Leukocyte Esterase (Negative) Urine WBC (0-5) /hpf Ur Squamous Epith Cells (0-4) /hpf Amorphous Sediment (None) /hpf Hyaline Casts (0-2) /lpf Urine Mucus (None) /hpf 08/28/17 08/28/17 08/28/17 Range/Units 05:28 06:00 06:53 WBC (3.8-10.6) k/uL RBC (3.80-5.40) m/uL Hgb (11.4-16.0) gm/dL Hct (34.0-46.0) % RDW (11.5-15.5) % Neutrophils # (1.3-7.7) k/uL Lymphocytes # (1.0-4.8) k/uL PT (9.0-12.0) sec INR (<1.2) APTT (22.0-30.0) sec ABG pH 7.46 H (7.35-7.45) ABG pCO2 27 L (35-45) mmHg ABG pO2 130 H (83-108) mmHg ABG HCO3 19 L (21-25) mmol/L ABG O2 Saturation 98.0 H (94-97) % ABG Lactic Acid (0.5-1.6) mmol/L Carbon Dioxide (22-30) mmol/L BUN (7-17) mg/dL Creatinine (0.52-1.04) mg/dL Glucose (74-99) mg/dL POC Glucose (mg/dL) 171 H 168 H (75-99) mg/dL Calcium (8.4-10.2) mg/dL Phosphorus (2.5-4.5) mg/dL Total Creatine Kinase (30-135) U/L CK-MB (CK-2) (0.0-2.4) ng/mL Troponin I (0.000-0.034) ng/mL TSH (0.465-4.680) mIU/L Free T4 (0.78-2.19) ng/dL Urine Appearance (Clear) Urine Protein (Negative) Urine Glucose (UA) (Negative) Urine Blood (Negative) Ur Leukocyte Esterase (Negative) Urine WBC (0-5) /hpf Ur Squamous Epith Cells (0-4) /hpf Amorphous Sediment (None) /hpf Hyaline Casts (0-2) /lpf Urine Mucus (None) /hpf 08/28/17 08/28/17 08/28/17 Range/Units 09:18 10:22 11:25 WBC (3.8-10.6) k/uL RBC (3.80-5.40) m/uL Hgb (11.4-16.0) gm/dL Hct (34.0-46.0) % RDW (11.5-15.5) % Neutrophils # (1.3-7.7) k/uL Lymphocytes # (1.0-4.8) k/uL PT (9.0-12.0) sec INR (<1.2) APTT (22.0-30.0) sec ABG pH (7.35-7.45) ABG pCO2 (35-45) mmHg ABG pO2 (83-108) mmHg ABG HCO3 (21-25) mmol/L ABG O2 Saturation (94-97) % ABG Lactic Acid (0.5-1.6) mmol/L Carbon Dioxide (22-30) mmol/L BUN (7-17) mg/dL Creatinine (0.52-1.04) mg/dL Glucose (74-99) mg/dL POC Glucose (mg/dL) 152 H 143 H 148 H (75-99) mg/dL Calcium (8.4-10.2) mg/dL Phosphorus (2.5-4.5) mg/dL Total Creatine Kinase (30-135) U/L CK-MB (CK-2) (0.0-2.4) ng/mL Troponin I (0.000-0.034) ng/mL TSH (0.465-4.680) mIU/L Free T4 (0.78-2.19) ng/dL Urine Appearance (Clear) Urine Protein (Negative) Urine Glucose (UA) (Negative) Urine Blood (Negative) Ur Leukocyte Esterase (Negative) Urine WBC (0-5) /hpf Ur Squamous Epith Cells (0-4) /hpf Amorphous Sediment (None) /hpf Hyaline Casts (0-2) /lpf Urine Mucus (None) /hpf 08/28/17 08/28/17 08/28/17 Range/Units 11:29 12:17 13:24 WBC (3.8-10.6) k/uL RBC (3.80-5.40) m/uL Hgb (11.4-16.0) gm/dL Hct (34.0-46.0) % RDW (11.5-15.5) % Neutrophils # (1.3-7.7) k/uL Lymphocytes # (1.0-4.8) k/uL PT (9.0-12.0) sec INR (<1.2) APTT 92.1 H (22.0-30.0) sec ABG pH (7.35-7.45) ABG pCO2 (35-45) mmHg ABG pO2 (83-108) mmHg ABG HCO3 (21-25) mmol/L ABG O2 Saturation (94-97) % ABG Lactic Acid (0.5-1.6) mmol/L Carbon Dioxide (22-30) mmol/L BUN (7-17) mg/dL Creatinine (0.52-1.04) mg/dL Glucose (74-99) mg/dL POC Glucose (mg/dL) 151 H 186 H (75-99) mg/dL Calcium (8.4-10.2) mg/dL Phosphorus (2.5-4.5) mg/dL Total Creatine Kinase (30-135) U/L CK-MB (CK-2) (0.0-2.4) ng/mL Troponin I (0.000-0.034) ng/mL TSH (0.465-4.680) mIU/L Free T4 (0.78-2.19) ng/dL Urine Appearance (Clear) Urine Protein (Negative) Urine Glucose (UA) (Negative) Urine Blood (Negative) Ur Leukocyte Esterase (Negative) Urine WBC (0-5) /hpf Ur Squamous Epith Cells (0-4) /hpf Amorphous Sediment (None) /hpf Hyaline Casts (0-2) /lpf Urine Mucus (None) /hpf Microbiology - Last 24 Hours (Table) 08/27/17 11:00 Blood Culture - Preliminary Blood No Growth after 24 hours 08/27/17 14:10 Gram Stain - Preliminary Peritoneal Fluid Body Fluid Culture - Preliminary 08/27/17 20:00 Urine Culture - Preliminary Urine,Catheterized Assessment and Plan Plan: -Septic shock with possibility of cardiac shock: Patient is on broad-spectrum antibiotics. Patient is intubated at this point of time because of which patient is not receiving Lasix because of shock, patient blood pressures better patient remains on epinephrine. Respiratory support with ventilator. Severe cardiomyopathy ejection fraction of around 25% -Can start failure systolic dysfunction unsure whether it's chronic and acute, in acute exacerbation -Acute hypoxic respiratory failure secondary to sepsis patient is presently intubated on assist-control ventilation -Possibility of non-ST elevation myocardial infarction with troponin elevation can be related to sepsis, cardiology is following the patient. Patient is on IV heparin -End-stage renal disease for paratonia dialysis dependent, undergoing peritoneal dialysis -Hyperkalemia secondary to severe metabolic acidosis along with end-stage renal disease which improved now with capsulate patient is presently on IV insulin as well patient potassium has gone up again. 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
[2017-08-28 14:31] LABS: Glucose,Whole Blood 208 mg/dL (75-99)
[2017-08-28 15:56] LABS: Glucose,Whole Blood 191 mg/dL (75-99)
[2017-08-28 17:18] LABS: Glucose,Whole Blood 157 mg/dL (75-99)
[2017-08-28 18:00] LABS: Glucose,Whole Blood 144 mg/dL (75-99)
[2017-08-28] MEDS ORDERED: DIALYSIS (PERIT 2.5%) 2,000 ML 50 G/2,000 ML BAG INTRAPERIT SCH (18:00)
[2017-08-28 18:58] LABS: Glucose,Whole Blood 111 mg/dL (75-99)
[2017-08-28] MEDS: HEPARIN SODIUM,PORCINE/D5W PMX 25,000 UNIT in DEXTROSE/WATER 1 500ML.BAG IV SCH (19:38)
[2017-08-28 20:33] LABS: Glucose,Whole Blood 187 mg/dL (75-99)
--- NOTE | 2017-08-28 21:27 | PN ---
PROGRESS NOTE Agustina Ballard is a lady with ischemic cardiomyopathy with previous bypass surgery, came in with respiratory failure. She is on a vent. Her ejection fraction is in the 20%-25% range with multiple wall motion abnormalities. She is on a combination of epinephrine and on a vent still. She seems to be neurologically intact. I am unable to make meaningful communication. Her blood pressure is 108/70. I am recommending a very small dose of beta carl. Heart reveals S1, S2 with a short systolic murmur. Lungs reveal diminished air entry over both bases. Abdomen is soft. Rest of physical examination is unchanged. A detailed exam was not performed for the central nervous system. IMPRESSION: 1. Non ST elevation myocardial infarction. 2. Respiratory failure on a ventilator with multiple comorbid conditions. 3. History of end-stage renal failure on peritoneal dialysis. Overall prognosis for this patient is poor. I explained to the family that her elevated troponin reflects some hypoxia as well as underlying renal failure; however, her LV function is very poor to begin with. I will add a very small dose of beta carl cautiously in view of the fact she is already on some pressors. Prognosis remains poor overall. No other suggestions, but will follow her closely. MMODL / IJN: [id number] /
[2017-08-28 22:00] LABS: Glucose,Whole Blood 172 mg/dL (75-99)
[2017-08-28 22:59] LABS: Glucose,Whole Blood 148 mg/dL (75-99)
[2017-08-28 23:53] LABS: Glucose,Whole Blood 135 mg/dL (75-99)
[2017-08-29] MEDS: DIALYSIS (PERIT 1.5%) 2,000 ML 30 G/2,000 ML BAG INTRAPERIT SCH ×2 (00:08→07:04)
[2017-08-29] MEDS: NITROGLYCERIN OINT 1 INCH/GM PACKET TOPICAL SCH ×5 (00:54→23:39)
[2017-08-29 00:59] LABS: Glucose,Whole Blood 141 mg/dL (75-99)
[2017-08-29] MEDS: PROPOFOL 1,000 MG in EMPTY BAG 1 BAG IV SCH ×2 (01:17→06:17)
[2017-08-29 01:36] LABS: Glucose,Whole Blood 165 mg/dL (75-99)
[2017-08-29 02:29] LABS: Glucose,Whole Blood 174 mg/dL (75-99)
[2017-08-29 03:10] LABS: Glucose,Whole Blood 107 mg/dL (75-99)
[2017-08-29 03:29] LABS: Glucose,Whole Blood 156 mg/dL (75-99)
[2017-08-29 04:33] LABS: Glucose,Whole Blood 137 mg/dL (75-99)
[2017-08-29 04:36] LABS: Basophils % (A) 0 %; Eosinophils # (A) 0.2 k/uL (0-0.7); Eosinophils % (A) 1 %; HCT 27.2 % (34.0-46.0); HGB 8.6 gm/dL (11.4-16.0); Lymphocytes % (A) 11 %; MCH 28.1 pg (25.0-35.0); MCHC 31.7 g/dL (31.0-37.0); MCV 88.6 fL (80.0-100.0); Mean Platelet Volume 6.9; Monocytes # (A) 0.6 k/uL (0-1.0); Monocytes % (A) 3 %; Neutrophils # (A) 14.6 k/uL (1.3-7.7); Neutrophils % (A) 84 %; Platelet Count 415 k/uL (150-450); RBC 3.07 m/uL (3.80-5.40); RDW 15.9 % (11.5-15.5); WBC 17.4 k/uL (3.8-10.6)
[2017-08-29 04:39] LABS: Magnesium 1.5 mg/dL (1.6-2.3); Potassium 3.9 mmol/L (3.5-5.1)
[2017-08-29 05:18] LABS: Calcium 5.6 mg/dL (8.4-10.2)
[2017-08-29 05:19] LABS: ABG Base Excess 1.1 mmol/L; ABG HCO3 24 mmol/L (21-25); ABG Oxygen Saturation 97.1 % (94-97); ABG PCO2 32 mmHg (35-45); ABG PH 7.49 (7.35-7.45); ABG PO2 97 mmHg (83-108); ABG TCO2 25 mmol/L (19-24)
[2017-08-29] MEDS ORDERED: SODIUM CHLORIDE 0.9% IVPB ONE (06:00)
[2017-08-29] MEDS ORDERED: CALCIUM CHLORIDE IVPB ONE (06:00)
[2017-08-29 06:06] LABS: Glucose,Whole Blood 121 mg/dL (75-99)
[2017-08-29] MEDS: MAGNESIUM SULFATE-D5W PMX 1 GM in DEXTROSE/WATER 1 100ML.BAG IVPB SCH ×2 (06:18→08:59)
--- NOTE | 2017-08-29 07:00 | XR ---
EXAMINATION TYPE: XR chest 1V DATE OF EXAM: 08/29/2017 CLINICAL HISTORY: Difficulty breathing progress study. TECHNIQUE: Single AP portable upright view of the chest is obtained. COMPARISON: Chest x-ray from one day earlier and older studies. CTA chest 2 days earlier. FINDINGS: An endotracheal tube and orogastric tube are stable in appearance. Post CABG changes with mediastinal clips and sternal wires is redemonstrated. Cardiac silhouette size is stable and within n ormal limits. There are persistent small to moderate-sized bilateral pleural effusions and bilateral central edema. No sizable pneumothorax is seen. Osseous structures are intact. IMPRESSION: Overall stable findings, small to moderate-sized bilateral pleural effusions and bilate ral perihilar edema consistent with fluid overload state all redemonstrated. Underlying infiltrate is not excluded.
[2017-08-29] MEDS: IPRATROPIUM-ALBUTEROL 3 ML NEB INHALATION SCH ×4 (07:11→20:29)
[2017-08-29 07:20] LABS: Glucose,Whole Blood 134 mg/dL (75-99)
[2017-08-29 08:04] LABS: Glucose,Whole Blood 134 mg/dL (75-99)
[2017-08-29] MEDS: METOPROLOL TARTRATE 12.5 MG TAB PO SCH (08:11)
[2017-08-29] MEDS: MEROPENEM 500 MG in SODIUM CHLORIDE 0.9% 50 ML IVPB SCH (08:59)
[2017-08-29] MEDS: LEVOTHYROXINE IVP 100 MCG/5 ML VIAL IV SCH (09:00)
[2017-08-29] MEDS: ASPIRIN 325 MG TAB PO SCH (09:00)
[2017-08-29] MEDS: PANTOPRAZOLE 40 MG/10 ML VIAL IVP SCH (09:00)
[2017-08-29] MEDS: CHLORHEXIDINE GLUCONATE 15 ML CUP MUCOUS MEM SCH (09:01)
[2017-08-29 09:30] LABS: Glucose,Whole Blood 172 mg/dL (75-99)
[2017-08-29] MEDS: EPINEPHrine 2 MG in DEXTROSE 5% IN WATER 250 ML IV SCH ×2 (10:00)
[2017-08-29 10:10] LABS: Glucose,Whole Blood 162 mg/dL (75-99)
[2017-08-29 10:51] LABS: Glucose,Whole Blood 172 mg/dL (75-99)
[2017-08-29 12:01] LABS: ABG Base Excess 0.4 mmol/L; ABG HCO3 23 mmol/L (21-25); ABG Oxygen Saturation 98.2 % (94-97); ABG PCO2 27 mmHg (35-45); ABG PH 7.54 (7.35-7.45); ABG PO2 127 mmHg (83-108); ABG TCO2 24 mmol/L (19-24)
--- NOTE | 2017-08-29 12:02 | P.PN ---
Subjective Progress Note Date: 08/29/17 This is a 67-year-old female patient with multiple medical problems and comorbidities who presented to ED with acute respiratory distress, intubated and placed on a mechanical ventilator and then moved to the intensive care unit. The patient has taken all of her care at [facility]. She has chronic renal failure and she currently has end stage renal disease and she is seeking kidney transportation the patient has been evaluated at [facility] for potential kidney transplant the daughter being her daughter. This patient lives in [place] and she recently moved in with her daughter living in [facility], and for that reason during this current episode the patient was brought in to our hospital. All of the information was obtained is from the daughters at the bedside This patient has developed renal failure, probably related to previous history of diabetes mellitus. She was started on peritoneal dialysis approximately year ago and she does nighttime cycler continuous with a 1.5 fluid exchange. This was started on high-dose in November 2016. Hemodialysis was considered and the patient was about to have a left upper extremity AV fistula. The fistula itself got clotted and the patient developed also ulceration in her digits bilaterally and for that reason this was not pursued. Currently the patient is gangrenous necrotic digits of the middle fingers of the left and the fourth finger on the right, affecting the tips. This was investigated at length at [facility]. The patient underwent a CT angios of the entire chest abdomen pelvis and extremities and she was found to have no significant subclavian axillary or brachial artery narrowing. She was found to have diffuse atherosclerosis with calcification of the bilateral radial and ulnar arteries and mild to moderate narrowing in the areas affecting the wrist. Atherosclerotic changes were also seen in the infrarenal abdominal aortic area which was estimated to be severe. Bilateral iliofemoral atherosclerotic changes were also seen. The patient was told to have small vessel disease and based on the reported history there was no evidence of any embolic phenomena or vasculitis The patient is known to have coronary artery disease and she has undergone pleased bypass surgery. She was morbidly obese and she was diabetic. She has undergone gastric bypass surgery more than 6 years ago and she has lost considerable amount of weight and during this time the patient was taken off as soon as she improved in terms of her blood sugar control and she started having episodes of hypoglycemia. Currently she is off anticoagulation. She also has chronic atrial fibrillation, chronic renal failure and currently she is on peritoneal dialysis, she hasn't complications of hyperkalemia, and she has history of hypertension, hyperlipidemia, hypothyroidism, peripheral vascular disease and previous history of coronary artery disease and myocardial infarction. The patient was at her daughter's home where she was feeling weak. In the director check hours the patient was found by the daughter collapsed in the bathroom. No reported chest pain or palpitations. No focal neurological deficit. The patient was lethargic and she was arousable and she was able to speak. She was moving all 4 extremities according to the history. No fever. No chills. No cough or sputum production. No nausea, vomiting or abdominal pain. The PD catheter was apparently functional. No skin rashes. Necrotic digits were seen bilaterally and these are dry gangrene. In the ED, the patient was found to be hypotensive postintubation. The patient was started on IV fluids and pressors. The patient was started on epinephrine infusion. She was intubated and blood gas showed severe metabolic acidosis. The chest x-ray shows cardiomegaly and pulmonary vessel congestion. ET tube was in a good location. No consolidation . Meanwhile, the patient's white cell count was at 14.2. The patient had a potassium level of 6.5 was being treated in the emergency department with a combination of Kayexalate, D50 and insulin and bicarb and the patient was severely acidotic with anion gap metabolic acidosis with a gap of 26 and a bicarb level of 5, creatinine of 9.4, and a troponin level of 1.2. EKG is not showing any acute ischemic abnormalities and is showing a normal sinus rhythm with a left bundle-branch block pattern. Subsequent potassium level was 7.1. Waldemar saw the patient in the ICU and we're going to start peritoneal dialysis. Meanwhile the patient is being resuscitated IV fluids. We'll start empiric antibiotic coverage. We'll monitor cardiac enzymes and obtain an echocardiogram. The computed tomography scan of the brain and C-spine showed no evidence of acute fracture and there was no evidence of any acute intracranial hemorrhage. On 08/28/2018 I'm seeing this patient for a follow-up. This is a very complicated case with present it with severe metabolic acidosis, respiratory failure, hyperkalemia and hypotension. The patient is being seen today in a follow-up. The patient remains sedated on a mechanical ventilator. This morning, she doesn't assist-control at the rate of 22, tidal volume 600, FiO2 of 50% and a PEEP of 5. Blood gases showed a component of acute respiratory alkalosis and the pH was at 7.47 with a pCO2 of 27 and pO2 1:30. Based on that , I dropped the tidal volume down to 500 by mouth I also drop the FiO2 down to 40%. Chest x-ray still showing a component of pulmonary vessel congestion and small bilateral pleural effusion. CT angios the chest was done yesterday and showed cardiomegaly and bilateral pleural effusion and pulmonary vascular congestion. He was no evidence of any pulmonary embolism. The patient is only on few mics of the low-fat for hemodynamic support. Troponin peaked at 7 and the patient is still on IV heparin and aspirin.. The patient had an echocardiogram yesterday that showed severe impaired LV function with an ejection fraction of 25-30%. In addition, there was segmental wall motion abnormalities involving the inferior wall and anteroseptal wall septum. The right ventricular pressure was estimated to be 42 mmHg. There was no significant valvular abnormalities. Left atrium was dilated. There was mild aortic stenosis. The patient had cultures sent and the blood culture and the abdominal fluid culture came back all negative. She remains on a combination of vancomycin and meropenem. Afebrile. White cell count is not elevated. Infected has dropped from 17 down to 11.9. Potassium level has also dropped down to 3.7 and the patient has a bicarb level which is up to 17. Calcium level is at 6.4. Phosphorus level is at 8.1. The patient was receiving abdominal PD 4 times a day with a 1.5% solution. Furthermore, the patient was noted to be somewhat hypothyroid with a TSH of 101 100 and a free T4 of 0.74. She was placed on 100 mg of IV Synthroid on a daily basis. Her hypothermia has also recovered. She is on tube feeds for now. Family is at the bedside. On 08/29/2017, I'm seeing this patient for a follow-up. The patient remains intubated on mechanical ventilator. This morning, she did assist-control mode at a rate of 22, tidal volume 500, FiO2 of 40% and a PEEP of 5. The blood gases still showing a component of respiratory alkalosis with a pH of 7.49 and a pCO2 of 32 and pO2 97. Based on this, I dropped the tidal volume down to 450. The patient will be given a sedation holiday again and we'll check weaning parameters and assess his readiness to wean. Upon yesterday's sedation holiday, the patient woke up last and she was able to follow some simple commands. Hemodynamically, the patient is still requiring 2 mics of epinephrine for blood pressure control. The patient is undergoing peritoneal dialysis with several exchanges on a daily basis with her 2.5% solution. The patient has no fever. No chills. Cultures of been negative. She was covered with a combination of Merrem and vancomycin. White cell count is at 17.4. The serum bicarb is up to 21 and there is no hyperkalemia. No other significant abnormalities otherwise for now. Objective - Vital Signs Vital signs: Vital Signs Temp 98.0 F 08/29/17 08:30 Pulse 98 08/29/17 10:00 Resp 16 08/29/17 10:00 BP 110/67 08/29/17 10:00 Pulse Ox 100 08/29/17 10:00 Intake & Output 08/28/17 08/29/17 08/29/17 18:59 06:59 18:59 Intake Total 4413.816 2068.468 403.857 Output Total 247 340 60 Balance 3739.943 0247.468 343.857 Weight 74.5 kg 73.5 kg 73.5 kg Intake: IV 1420 840 280 Dextrose 5% in Water 1, 700 600 000 ml @ 50 mls/hr IV . Q23H [facility] with Sodium Bicarb (1 Meq/ml) 150 ml Rx#:[id number] Magnesium Sulfate-D5w Pmx 100 1 gm In Dextrose/Water 1 100ml.bag @ 100 mls/hr IVPB Q1H [facility] Rx#: [id number] Meropenem 1 gm In Sodium 200 Chloride 0.9% 100 ml @ 200 mls/hr IVPB Q8HR [facility] Rx#:[id number] Meropenem 500 mg In 100 Sodium Chloride 0.9% 50 ml @ 100 mls/hr IVPB Q24HR [facility] Rx#:[id number] Potassium Chloride 10 meq 100 In Water For Injection 1 100ml.bag @ 100 mls/hr IVPB Q1H [facility] Rx#: [id number] Vancomycin 1,250 mg In 250 Sodium Chloride 0.9% 250 ml @ 125 mls/hr IVPB ONCE ONE Rx#:[id number] sodium chloride 0.9% 1, 170 240 80 000 ml KVO Intake, IV Titration 516.490 884.468 123.857 Amount EPINEPHrine 2 mg In 252.000 429.723 74.277 Dextrose 5% in Water 250 ml @ 2 MCG/MIN 15.12 mls/ hr IV .[id number] [facility] Rx#: [id number] Heparin Sodium,Porcine/ 142.095 154.968 D5w Pmx 25,000 unit In Dextrose/Water 1 500ml. bag @ 12 UNITS/KG/HR 13. 49 mls/hr IV .Q24H [facility] Rx #:[id number] Insulin Regular 100 unit 23.885 8.157 0 In Sodium Chloride 0.9% 100 ml @ Per Protocol IV .Q0M [facility] Rx#:[id number] Propofol 1,000 mg In 98.51 291.62 49.58 Empty Bag 1 bag @ Titrate IV .Q0M [facility] Rx#: [id number] Output: Urine 247 340 60 Other: Voiding Method Indwelling Catheter Indwelling Catheter Indwelling Catheter # Bowel Movements 0 ABP, PAP, CO, CI - Last Documented Arterial Blood Pressure 127/67 - Exam Appearance the patient is intubated, comfortable likely distress sedated at this point Head exam was generally normal. There was no scleral icterus or corneal arcus. Mucous membranes were moist. The patient has an orogastric and orotracheal tube are both in place and secured. Neck was supple and without jugular venous distension, thyromegaly, or carotid bruits. Carotids were easily palpable bilaterally. There was no adenopathy. Lungs sounds are diminished bilaterally along with some scattered rhonchi and bilateral crackles in lung bases. No wheezing. ET tube is in a good location. Heart sounds are regular, positive S1-S2, no significant murmurs appreciated. Sternum stable treatment intact and scar of previous thoracotomy is intact. Abdominal exam revealed normal bowel sounds. The abdomen was soft, non-tender, and without masses, organomegaly, or appreciable enlargement of the abdominal aorta. The patient has a PD catheter which is in place and there is no direct tenderness or rebound tensile guarding. Extremities revealed no edema. Pulses in lower extremities are markedly diminished. The patient has necrotic digits at the tips of the digits involving the third mid finger on the left and the fourth finger on the right. There is evidence of dry gangrene. No evidence of any wound infection. The area is pretty much black and necrotic. No lower extremities edema. No cyanosis. Neurologic the patient is sedated. She is despite to deep painful stimuli. - Labs CBC & Chem 7: 08/29/17 04:00 08/29/17 04:00 Labs: Abnormal Lab Results - Last 24 Hours (Table) 08/28/17 08/28/17 08/28/17 Range/Units 11:29 12:17 13:24 WBC (3.8-10.6) k/uL RBC (3.80-5.40) m/uL Hgb (11.4-16.0) gm/dL Hct (34.0-46.0) % RDW (11.5-15.5) % Neutrophils # (1.3-7.7) k/uL APTT 92.1 H (22.0-30.0) sec ABG pH (7.35-7.45) ABG pCO2 (35-45) mmHg ABG Total CO2 (19-24) mmol/L ABG O2 Saturation (94-97) % Sodium (137-145) mmol/L Carbon Dioxide (22-30) mmol/L BUN (7-17) mg/dL Creatinine (0.52-1.04) mg/dL Glucose (74-99) mg/dL POC Glucose (mg/dL) 151 H 186 H (75-99) mg/dL Calcium (8.4-10.2) mg/dL Phosphorus (2.5-4.5) mg/dL Magnesium (1.6-2.3) mg/dL 08/28/17 08/28/17 08/28/17 Range/Units 14:29 15:53 17:16 WBC (3.8-10.6) k/uL RBC (3.80-5.40) m/uL Hgb (11.4-16.0) gm/dL Hct (34.0-46.0) % RDW (11.5-15.5) % Neutrophils # (1.3-7.7) k/uL APTT (22.0-30.0) sec ABG pH (7.35-7.45) ABG pCO2 (35-45) mmHg ABG Total CO2 (19-24) mmol/L ABG O2 Saturation (94-97) % Sodium (137-145) mmol/L Carbon Dioxide (22-30) mmol/L BUN (7-17) mg/dL Creatinine (0.52-1.04) mg/dL Glucose (74-99) mg/dL POC Glucose (mg/dL) 208 H 191 H 157 H (75-99) mg/dL Calcium (8.4-10.2) mg/dL Phosphorus (2.5-4.5) mg/dL Magnesium (1.6-2.3) mg/dL 08/28/17 08/28/17 08/28/17 Range/Units 17:57 18:56 20:31 WBC (3.8-10.6) k/uL RBC (3.80-5.40) m/uL Hgb (11.4-16.0) gm/dL Hct (34.0-46.0) % RDW (11.5-15.5) % Neutrophils # (1.3-7.7) k/uL APTT (22.0-30.0) sec ABG pH (7.35-7.45) ABG pCO2 (35-45) mmHg ABG Total CO2 (19-24) mmol/L ABG O2 Saturation (94-97) % Sodium (137-145) mmol/L Carbon Dioxide (22-30) mmol/L BUN (7-17) mg/dL Creatinine (0.52-1.04) mg/dL Glucose (74-99) mg/dL POC Glucose (mg/dL) 144 H 111 H 187 H (75-99) mg/dL Calcium (8.4-10.2) mg/dL Phosphorus (2.5-4.5) mg/dL Magnesium (1.6-2.3) mg/dL 08/28/17 08/28/17 08/28/17 Range/Units 21:58 22:57 23:51 WBC (3.8-10.6) k/uL RBC (3.80-5.40) m/uL Hgb (11.4-16.0) gm/dL Hct (34.0-46.0) % RDW (11.5-15.5) % Neutrophils # (1.3-7.7) k/uL APTT (22.0-30.0) sec ABG pH (7.35-7.45) ABG pCO2 (35-45) mmHg ABG Total CO2 (19-24) mmol/L ABG O2 Saturation (94-97) % Sodium (137-145) mmol/L Carbon Dioxide (22-30) mmol/L BUN (7-17) mg/dL Creatinine (0.52-1.04) mg/dL Glucose (74-99) mg/dL POC Glucose (mg/dL) 172 H 148 H 135 H (75-99) mg/dL Calcium (8.4-10.2) mg/dL Phosphorus (2.5-4.5) mg/dL Magnesium (1.6-2.3) mg/dL 08/29/17 08/29/17 08/29/17 Range/Units 00:57 01:00 01:34 WBC (3.8-10.6) k/uL RBC (3.80-5.40) m/uL Hgb (11.4-16.0) gm/dL Hct (34.0-46.0) % RDW (11.5-15.5) % Neutrophils # (1.3-7.7) k/uL APTT 46.4 H (22.0-30.0) sec ABG pH (7.35-7.45) ABG pCO2 (35-45) mmHg ABG Total CO2 (19-24) mmol/L ABG O2 Saturation (94-97) % Sodium (137-145) mmol/L Carbon Dioxide (22-30) mmol/L BUN (7-17) mg/dL Creatinine (0.52-1.04) mg/dL Glucose (74-99) mg/dL POC Glucose (mg/dL) 141 H 165 H (75-99) mg/dL Calcium (8.4-10.2) mg/dL Phosphorus (2.5-4.5) mg/dL Magnesium (1.6-2.3) mg/dL 08/29/17 08/29/17 08/29/17 Range/Units 02:26 03:07 03:28 WBC (3.8-10.6) k/uL RBC (3.80-5.40) m/uL Hgb (11.4-16.0) gm/dL Hct (34.0-46.0) % RDW (11.5-15.5) % Neutrophils # (1.3-7.7) k/uL APTT (22.0-30.0) sec ABG pH (7.35-7.45) ABG pCO2 (35-45) mmHg ABG Total CO2 (19-24) mmol/L ABG O2 Saturation (94-97) % Sodium (137-145) mmol/L Carbon Dioxide (22-30) mmol/L BUN (7-17) mg/dL Creatinine (0.52-1.04) mg/dL Glucose (74-99) mg/dL POC Glucose (mg/dL) 174 H 107 H 156 H (75-99) mg/dL Calcium (8.4-10.2) mg/dL Phosphorus (2.5-4.5) mg/dL Magnesium (1.6-2.3) mg/dL 08/29/17 08/29/17 08/29/17 Range/Units 04:00 04:00 04:00 WBC 17.4 H (3.8-10.6) k/uL RBC 3.07 L (3.80-5.40) m/uL Hgb 8.6 L (11.4-16.0) gm/dL Hct 27.2 L (34.0-46.0) % RDW 15.9 H (11.5-15.5) % Neutrophils # 14.6 H (1.3-7.7) k/uL APTT 47.3 H (22.0-30.0) sec ABG pH (7.35-7.45) ABG pCO2 (35-45) mmHg ABG Total CO2 (19-24) mmol/L ABG O2 Saturation (94-97) % Sodium 134 L (137-145) mmol/L Carbon Dioxide 21 L (22-30) mmol/L BUN 76 H (7-17) mg/dL Creatinine 5.20 H* (0.52-1.04) mg/dL Glucose 131 H (74-99) mg/dL POC Glucose (mg/dL) (75-99) mg/dL Calcium 5.6 L* (8.4-10.2) mg/dL Phosphorus 7.0 H (2.5-4.5) mg/dL Magnesium 1.5 L (1.6-2.3) mg/dL 08/29/17 08/29/17 08/29/17 Range/Units 04:31 05:15 06:03 WBC (3.8-10.6) k/uL RBC (3.80-5.40) m/uL Hgb (11.4-16.0) gm/dL Hct (34.0-46.0) % RDW (11.5-15.5) % Neutrophils # (1.3-7.7) k/uL APTT (22.0-30.0) sec ABG pH 7.49 H (7.35-7.45) ABG pCO2 32 L (35-45) mmHg ABG Total CO2 25 H (19-24) mmol/L ABG O2 Saturation 97.1 H (94-97) % Sodium (137-145) mmol/L Carbon Dioxide (22-30) mmol/L BUN (7-17) mg/dL Creatinine (0.52-1.04) mg/dL Glucose (74-99) mg/dL POC Glucose (mg/dL) 137 H 121 H (75-99) mg/dL Calcium (8.4-10.2) mg/dL Phosphorus (2.5-4.5) mg/dL Magnesium (1.6-2.3) mg/dL 08/29/17 08/29/17 08/29/17 Range/Units 07:18 08:00 09:27 WBC (3.8-10.6) k/uL RBC (3.80-5.40) m/uL Hgb (11.4-16.0) gm/dL Hct (34.0-46.0) % RDW (11.5-15.5) % Neutrophils # (1.3-7.7) k/uL APTT (22.0-30.0) sec ABG pH (7.35-7.45) ABG pCO2 (35-45) mmHg ABG Total CO2 (19-24) mmol/L ABG O2 Saturation (94-97) % Sodium (137-145) mmol/L Carbon Dioxide (22-30) mmol/L BUN (7-17) mg/dL Creatinine (0.52-1.04) mg/dL Glucose (74-99) mg/dL POC Glucose (mg/dL) 134 H 134 H 172 H (75-99) mg/dL Calcium (8.4-10.2) mg/dL Phosphorus (2.5-4.5) mg/dL Magnesium (1.6-2.3) mg/dL 08/29/17 08/29/17 Range/Units 10:04 10:49 WBC (3.8-10.6) k/uL RBC (3.80-5.40) m/uL Hgb (11.4-16.0) gm/dL Hct (34.0-46.0) % RDW (11.5-15.5) % Neutrophils # (1.3-7.7) k/uL APTT (22.0-30.0) sec ABG pH (7.35-7.45) ABG pCO2 (35-45) mmHg ABG Total CO2 (19-24) mmol/L ABG O2 Saturation (94-97) % Sodium (137-145) mmol/L Carbon Dioxide (22-30) mmol/L BUN (7-17) mg/dL Creatinine (0.52-1.04) mg/dL Glucose (74-99) mg/dL POC Glucose (mg/dL) 162 H 172 H (75-99) mg/dL Calcium (8.4-10.2) mg/dL Phosphorus (2.5-4.5) mg/dL Magnesium (1.6-2.3) mg/dL Microbiology - Last 24 Hours (Table) 08/27/17 20:00 Urine Culture - Final Urine,Catheterized 08/27/17 23:20 Gram Stain - Preliminary Sputum 08/27/17 11:00 Blood Culture - Preliminary Blood No Growth after 24 hours 08/27/17 14:10 Gram Stain - Preliminary Peritoneal Fluid Body Fluid Culture - Preliminary Assessment and Plan Plan: Assessment 1 acute hypoxic respiratory failure, multifactorial, still on that investigation. The patient has a component of fluid overload and pulmonary vessel congestion small bilateral pleural effusion. The severe metabolic acidosis that contributed to respiratory failure has subsided. 2 acute hypotension , currently on few mics of epinephrine infusion for blood pressure support. The patient was found to have cardiomyopathy with severe impairment of the LV function with an ejection fraction of 25% in addition to an acute non-ST segment elevation myocardial infarction. The patient is still requiring few mics of epinephrine for blood pressure control. 3 acute non-STEMI AL troponin peaked at 7, still on a combination of aspirin and IV heparin 4 coronary artery disease with previous coronary artery bypass surgery 5 End stage renal disease on hemodialysis via peritoneal dialysis. The patient has been on PD since November 2016. 6 acute hyperkalemia secondary to severe metabolic acidosis and the patient apparently was taking potassium supplements on outpatient basis. No EKG changes at this point in time of the patient's hyperkalemia was treated and the potassium level has completely normalized. 7 severe anion gap metabolic acidosis, concern for lactic acidosis secondary to sepsis/hypotension, recovered 8 history of obesity status post gastric bypass surgery 9 diabetes mellitus recovered following bariatric surgery and the patient is currently on no diabetic medications 10 hypertension, history of 11 hypothyroidism, chemically still hypothyroid with a TSH of more than 100 and a free T4 of 0.74 and the patient will be kept on IV Synthroid. 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 15 seeking kidney transplantation to [facility] 16 chronic anemia, normocytic 17 hypoproteinemia and hypoalbuminemia 18 hypothermia, recovered 19 severe peripheral vascular disease Plan Will drop down the tidal volume to 450. Stop the Diprivan. Assess the patient' s readiness to wean. Check weaning parameters. Mother the patient intubated by #6.5-2. We'll give the patient a spontaneous breathing trial if the weaning parameters are appropriate. We'll give her a pressure support of 7 and a PEEP of 5 and repeat the blood gases and 30 minutes. We'll consider extubation today if the patient is able to tolerate this point is breathing trial without any major difficulties. Meanwhile, continue vent support, continue antibiotics , keep pressors on board for hemodynamic support, continue IV heparin, cardiology is on the case. The father's on the case and the patient is doing routine PD exchanges. Electrodes have normalized. No significant metabolic acidosis this point in time. Long-term prognosis poor. We'll continue to follow. Case was discussed with the family at the bedside. Critically care evaluation, more than 35 minutes. Time with Patient: Greater than 30
[2017-08-29] MEDS: DIALYSIS (PERIT 2.5%) 2,000 ML 50 G/2,000 ML BAG INTRAPERIT SCH ×3 (12:21→23:38)
[2017-08-29 12:34] LABS: Glucose,Whole Blood 114 mg/dL (75-99)
--- NOTE | 2017-08-29 13:24 | P.PN ---
Subjective 65-year-old the being treated for acute respiratory failure secondary to sepsis source unclear possibly lower limb ulcerations or paratonia him. Patient remains intubated patient is presently on 40% FiO2 PEEP of 5 and tidal volume of 500 continues to have metabolic acidosis which improved compared to yesterday. Patient is undergoing peritoneal dialysis remains on epinephrine, propofol drip, IV heparin for possible non-ST elevation myocardial infarction, on antibiotics meropenem and vancomycin with the so for negative cultures, very minimal urine output, hypotension improved, possibility of a superimposed cardiac sharp with bilateral pleural effusions 08/29/2017 Patient is off sedation undergoing weaning trials, on 1 g of epinephrine. Patient is awake and arousable intubated on BiPAP through ventilator Objective - Vital Signs Vital signs: Vital Signs Temp 99.6 F 08/29/17 12:30 Pulse 93 08/29/17 12:30 Resp 10 L 08/29/17 12:30 BP 90/61 08/29/17 12:30 Pulse Ox 99 08/29/17 12:30 Intake & Output 08/28/17 08/29/17 08/29/17 18:59 06:59 18:59 Intake Total 3143.739 4182.468 466.988 Output Total 247 340 110 Balance 2853.478 9165.468 356.988 Weight 74.5 kg 73.5 kg 73.5 kg Intake: IV 1420 840 340 Dextrose 5% in Water 1, 700 600 000 ml @ 50 mls/hr IV . Q23H ALEXANDRA with Sodium Bicarb (1 Meq/ml) 150 ml Rx#:[id number] Magnesium Sulfate-D5w Pmx 100 1 gm In Dextrose/Water 1 100ml.bag @ 100 mls/hr IVPB Q1H ALEXANDRA Rx#: [id number] Meropenem 1 gm In Sodium 200 Chloride 0.9% 100 ml @ 200 mls/hr IVPB Q8HR ALEXANDRA Rx#:[id number] Meropenem 500 mg In 100 Sodium Chloride 0.9% 50 ml @ 100 mls/hr IVPB Q24HR ALEXANDRA Rx#:[id number] Potassium Chloride 10 meq 100 In Water For Injection 1 100ml.bag @ 100 mls/hr IVPB Q1H ALEXANDRA Rx#: [id number] Vancomycin 1,250 mg In 250 Sodium Chloride 0.9% 250 ml @ 125 mls/hr IVPB ONCE ONE Rx#:[id number] sodium chloride 0.9% 1, 170 240 140 000 ml KVO Intake, IV Titration 516.490 884.468 126.988 Amount EPINEPHrine 2 mg In 252.000 429.723 74.277 Dextrose 5% in Water 250 ml @ 2 MCG/MIN 15.12 mls/ hr IV .[id number] COUNTS INCLUDE 234 BEDS AT THE [facility] Rx#: [id number] Heparin Sodium,Porcine/ 142.095 154.968 D5w Pmx 25,000 unit In Dextrose/Water 1 500ml. bag @ 12 UNITS/KG/HR 13. 49 mls/hr IV .Q24H COUNTS INCLUDE 234 BEDS AT THE [facility] Rx #:[id number] Insulin Regular 100 unit 23.885 8.157 3.131 In Sodium Chloride 0.9% 100 ml @ Per Protocol IV .Q0M COUNTS INCLUDE 234 BEDS AT THE [facility] Rx#:[id number] Propofol 1,000 mg In 98.51 291.62 49.58 Empty Bag 1 bag @ Titrate IV .Q0M COUNTS INCLUDE 234 BEDS AT THE [facility] Rx#: [id number] Output: Urine 247 340 110 Other: Voiding Method Indwelling Catheter Indwelling Catheter Indwelling Catheter # Bowel Movements 0 ABP, PAP, CO, CI - Last Documented Arterial Blood Pressure 114/52 - Exam PHYSICAL EXAMINATION: GENERAL: Intubated awake HEENT: Pupils are round and equally reacting to light. EOMI. No scleral icterus. No conjunctival pallor. Normocephalic, atraumatic. No pharyngeal erythema. No thyromegaly. CARDIOVASCULAR: S1 and S2 present. No murmurs, rubs, or gallops. Tachycardic PULMONARY: Good air entry treatment with mechanical ventilator sounds and bibasilar crackles are appreciated ABDOMEN: Soft, nontender, nondistended, normoactive bowel sounds. No palpable organomegaly. MUSCULOSKELETAL: No joint swelling or deformity. EXTREMITIES: Multiple ulcerations in bilateral lower limbs and wounds please refer to nursing documentation for further details, markedly diminished bilateral dorsalis pedis pulses and dry gangrene of third and fourth right toes NEUROLOGICAL: Intubated and and awake off sedation SKIN: No rashes. - Labs CBC & Chem 7: 08/29/17 04:00 08/29/17 04:00 Labs: Abnormal Lab Results - Last 24 Hours (Table) 08/28/17 08/28/17 08/28/17 Range/Units 13:24 14:29 15:53 WBC (3.8-10.6) k/uL RBC (3.80-5.40) m/uL Hgb (11.4-16.0) gm/dL Hct (34.0-46.0) % RDW (11.5-15.5) % Neutrophils # (1.3-7.7) k/uL APTT (22.0-30.0) sec ABG pH (7.35-7.45) ABG pCO2 (35-45) mmHg ABG pO2 (83-108) mmHg ABG Total CO2 (19-24) mmol/L ABG O2 Saturation (94-97) % Sodium (137-145) mmol/L Carbon Dioxide (22-30) mmol/L BUN (7-17) mg/dL Creatinine (0.52-1.04) mg/dL Glucose (74-99) mg/dL POC Glucose (mg/dL) 186 H 208 H 191 H (75-99) mg/dL Calcium (8.4-10.2) mg/dL Phosphorus (2.5-4.5) mg/dL Magnesium (1.6-2.3) mg/dL 08/28/17 08/28/17 08/28/17 Range/Units 17:16 17:57 18:56 WBC (3.8-10.6) k/uL RBC (3.80-5.40) m/uL Hgb (11.4-16.0) gm/dL Hct (34.0-46.0) % RDW (11.5-15.5) % Neutrophils # (1.3-7.7) k/uL APTT (22.0-30.0) sec ABG pH (7.35-7.45) ABG pCO2 (35-45) mmHg ABG pO2 (83-108) mmHg ABG Total CO2 (19-24) mmol/L ABG O2 Saturation (94-97) % Sodium (137-145) mmol/L Carbon Dioxide (22-30) mmol/L BUN (7-17) mg/dL Creatinine (0.52-1.04) mg/dL Glucose (74-99) mg/dL POC Glucose (mg/dL) 157 H 144 H 111 H (75-99) mg/dL Calcium (8.4-10.2) mg/dL Phosphorus (2.5-4.5) mg/dL Magnesium (1.6-2.3) mg/dL 08/28/17 08/28/17 08/28/17 Range/Units 20:31 21:58 22:57 WBC (3.8-10.6) k/uL RBC (3.80-5.40) m/uL Hgb (11.4-16.0) gm/dL Hct (34.0-46.0) % RDW (11.5-15.5) % Neutrophils # (1.3-7.7) k/uL APTT (22.0-30.0) sec ABG pH (7.35-7.45) ABG pCO2 (35-45) mmHg ABG pO2 (83-108) mmHg ABG Total CO2 (19-24) mmol/L ABG O2 Saturation (94-97) % Sodium (137-145) mmol/L Carbon Dioxide (22-30) mmol/L BUN (7-17) mg/dL Creatinine (0.52-1.04) mg/dL Glucose (74-99) mg/dL POC Glucose (mg/dL) 187 H 172 H 148 H (75-99) mg/dL Calcium (8.4-10.2) mg/dL Phosphorus (2.5-4.5) mg/dL Magnesium (1.6-2.3) mg/dL 08/28/17 08/29/17 08/29/17 Range/Units 23:51 00:57 01:00 WBC (3.8-10.6) k/uL RBC (3.80-5.40) m/uL Hgb (11.4-16.0) gm/dL Hct (34.0-46.0) % RDW (11.5-15.5) % Neutrophils # (1.3-7.7) k/uL APTT 46.4 H (22.0-30.0) sec ABG pH (7.35-7.45) ABG pCO2 (35-45) mmHg ABG pO2 (83-108) mmHg ABG Total CO2 (19-24) mmol/L ABG O2 Saturation (94-97) % Sodium (137-145) mmol/L Carbon Dioxide (22-30) mmol/L BUN (7-17) mg/dL Creatinine (0.52-1.04) mg/dL Glucose (74-99) mg/dL POC Glucose (mg/dL) 135 H 141 H (75-99) mg/dL Calcium (8.4-10.2) mg/dL Phosphorus (2.5-4.5) mg/dL Magnesium (1.6-2.3) mg/dL 08/29/17 08/29/17 08/29/17 Range/Units 01:34 02:26 03:07 WBC (3.8-10.6) k/uL RBC (3.80-5.40) m/uL Hgb (11.4-16.0) gm/dL Hct (34.0-46.0) % RDW (11.5-15.5) % Neutrophils # (1.3-7.7) k/uL APTT (22.0-30.0) sec ABG pH (7.35-7.45) ABG pCO2 (35-45) mmHg ABG pO2 (83-108) mmHg ABG Total CO2 (19-24) mmol/L ABG O2 Saturation (94-97) % Sodium (137-145) mmol/L Carbon Dioxide (22-30) mmol/L BUN (7-17) mg/dL Creatinine (0.52-1.04) mg/dL Glucose (74-99) mg/dL POC Glucose (mg/dL) 165 H 174 H 107 H (75-99) mg/dL Calcium (8.4-10.2) mg/dL Phosphorus (2.5-4.5) mg/dL Magnesium (1.6-2.3) mg/dL 08/29/1718 08/29/17 Range/Units 03:28 04:00 04:00 WBC 17.4 H (3.8-10.6) k/uL RBC 3.07 L (3.80-5.40) m/uL Hgb 8.6 L (11.4-16.0) gm/dL Hct 27.2 L (34.0-46.0) % RDW 15.9 H (11.5-15.5) % Neutrophils # 14.6 H (1.3-7.7) k/uL APTT (22.0-30.0) sec ABG pH (7.35-7.45) ABG pCO2 (35-45) mmHg ABG pO2 (83-108) mmHg ABG Total CO2 (19-24) mmol/L ABG O2 Saturation (94-97) % Sodium 134 L (137-145) mmol/L Carbon Dioxide 21 L (22-30) mmol/L BUN 76 H (7-17) mg/dL Creatinine 5.20 H* (0.52-1.04) mg/dL Glucose 131 H (74-99) mg/dL POC Glucose (mg/dL) 156 H (75-99) mg/dL Calcium 5.6 L* (8.4-10.2) mg/dL Phosphorus 7.0 H (2.5-4.5) mg/dL Magnesium 1.5 L (1.6-2.3) mg/dL 08/29/17 08/29/17 08/29/17 Range/Units 04:00 04:31 05:15 WBC (3.8-10.6) k/uL RBC (3.80-5.40) m/uL Hgb (11.4-16.0) gm/dL Hct (34.0-46.0) % RDW (11.5-15.5) % Neutrophils # (1.3-7.7) k/uL APTT 47.3 H (22.0-30.0) sec ABG pH 7.49 H (7.35-7.45) ABG pCO2 32 L (35-45) mmHg ABG pO2 (83-108) mmHg ABG Total CO2 25 H (19-24) mmol/L ABG O2 Saturation 97.1 H (94-97) % Sodium (137-145) mmol/L Carbon Dioxide (22-30) mmol/L BUN (7-17) mg/dL Creatinine (0.52-1.04) mg/dL Glucose (74-99) mg/dL POC Glucose (mg/dL) 137 H (75-99) mg/dL Calcium (8.4-10.2) mg/dL Phosphorus (2.5-4.5) mg/dL Magnesium (1.6-2.3) mg/dL 08/29/17 08/29/17 08/29/17 Range/Units 06:03 07:18 08:00 WBC (3.8-10.6) k/uL RBC (3.80-5.40) m/uL Hgb (11.4-16.0) gm/dL Hct (34.0-46.0) % RDW (11.5-15.5) % Neutrophils # (1.3-7.7) k/uL APTT (22.0-30.0) sec ABG pH (7.35-7.45) ABG pCO2 (35-45) mmHg ABG pO2 (83-108) mmHg ABG Total CO2 (19-24) mmol/L ABG O2 Saturation (94-97) % Sodium (137-145) mmol/L Carbon Dioxide (22-30) mmol/L BUN (7-17) mg/dL Creatinine (0.52-1.04) mg/dL Glucose (74-99) mg/dL POC Glucose (mg/dL) 121 H 134 H 134 H (75-99) mg/dL Calcium (8.4-10.2) mg/dL Phosphorus (2.5-4.5) mg/dL Magnesium (1.6-2.3) mg/dL 08/29/17 08/29/17 08/29/17 Range/Units 09:27 10:04 10:49 WBC (3.8-10.6) k/uL RBC (3.80-5.40) m/uL Hgb (11.4-16.0) gm/dL Hct (34.0-46.0) % RDW (11.5-15.5) % Neutrophils # (1.3-7.7) k/uL APTT (22.0-30.0) sec ABG pH (7.35-7.45) ABG pCO2 (35-45) mmHg ABG pO2 (83-108) mmHg ABG Total CO2 (19-24) mmol/L ABG O2 Saturation (94-97) % Sodium (137-145) mmol/L Carbon Dioxide (22-30) mmol/L BUN (7-17) mg/dL Creatinine (0.52-1.04) mg/dL Glucose (74-99) mg/dL POC Glucose (mg/dL) 172 H 162 H 172 H (75-99) mg/dL Calcium (8.4-10.2) mg/dL Phosphorus (2.5-4.5) mg/dL Magnesium (1.6-2.3) mg/dL 08/29/17 08/29/17 Range/Units 11:59 12:32 WBC (3.8-10.6) k/uL RBC (3.80-5.40) m/uL Hgb (11.4-16.0) gm/dL Hct (34.0-46.0) % RDW (11.5-15.5) % Neutrophils # (1.3-7.7) k/uL APTT (22.0-30.0) sec ABG pH 7.54 H (7.35-7.45) ABG pCO2 27 L (35-45) mmHg ABG pO2 127 H (83-108) mmHg ABG Total CO2 (19-24) mmol/L ABG O2 Saturation 98.2 H (94-97) % Sodium (137-145) mmol/L Carbon Dioxide (22-30) mmol/L BUN (7-17) mg/dL Creatinine (0.52-1.04) mg/dL Glucose (74-99) mg/dL POC Glucose (mg/dL) 114 H (75-99) mg/dL Calcium (8.4-10.2) mg/dL Phosphorus (2.5-4.5) mg/dL Magnesium (1.6-2.3) mg/dL Microbiology - Last 24 Hours (Table) 08/27/17 11:00 Blood Culture - Preliminary Blood No Growth after 48 hours 08/27/17 20:00 Urine Culture - Final Urine,Catheterized 08/27/17 23:20 Gram Stain - Preliminary Sputum 08/27/17 14:10 Gram Stain - Preliminary Peritoneal Fluid Body Fluid Culture - Preliminary Assessment and Plan Plan: -Septic shock with possibility of cardiac shock: Patient is on broad-spectrum antibiotics. Patient is intubated at this point of time because of which patient is not receiving Lasix because of shock, patient blood pressures better patient remains on epinephrine. Respiratory support with ventilator. Severe cardiomyopathy ejection fraction of around 25%. Patient is undergoing weaning trial today -Congestive heart failure systolic dysfunction unsure whether it's chronic and acute, in acute exacerbation -Acute hypoxic respiratory failure secondary to sepsis patient is presently intubated on assist-control ventilation -Possibility of non-ST elevation myocardial infarction with troponin elevation can be related to sepsis, cardiology is following the patient. Patient is on IV heparin -End-stage renal disease for paratonia dialysis dependent, undergoing peritoneal dialysis -Hyperkalemia secondary to severe metabolic acidosis along with end-stage renal disease which improved now with capsulate patient is presently on IV insulin as well patient potassium has gone up again. 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
[2017-08-29 14:25] LABS: Glucose,Whole Blood 156 mg/dL (75-99)
[2017-08-29 14:52] LABS: Appearance,BF Clear; Color,BF Colorless; Nucleated Cells, Body Fluid 35 /uL; RBC, Body Fluid 3 /uL
--- NOTE | 2017-08-29 15:22 | PN ---
PROGRESS NOTE Patient is seen for followup for end-stage renal disease. She had about 300 mL of ultrafiltration with 2.5% exchange last night. The patient remains on 3 mcg of epinephrine. Her sedation is being held and there are plans for possible extubation. PHYSICAL EXAMINATION: On examination, patient seems to be following commands. She is waking up. An FiO2 this morning was at 40%. Heart rate about 90-100 per minute, blood pressure 90/61. Examination of the heart: S1, S2. Examination lungs: Bilateral breath sounds are heard. Abdomen is soft, nontender. Examination lower extremities shows trace edema bilaterally. There is a dry gangrene noted in the right ring finger and the 2nd and 3rd finger in the left hand. [employer] exam is cannot be performed. LABS SHOW: Sodium of 134, potassium 3.9, BUN 76, serum creatinine 5.2, calcium 5.6, phosphorus 7.0, magnesium 1.5. ASSESSMENT: 1. End-stage renal disease, on peritoneal dialysis. We will change all PD exchanges to 2.5% solution q.6 hours. We can also start midodrine only once patient is extubated or feeding tube if she is not extubated. 2. Hypocalcemia status post supplementation. Patient is maintained on Rocaltrol. I will increase the dose. The patient was maintained on Rocaltrol as outpatient. I will resume the Rocaltrol and we will check a 25 hydroxy vitamin D level as well. 3. Vent-dependent respiratory failure for possible extubation today. 4. Severe metabolic acidosis, now resolved. 5. Hyperkalemia on initial admission, now improved. 6. Cardiomyopathy, ejection fraction 25-30%. 7. Peripheral vascular disease with dry gangrene noted in both hands and the tips of the fingers. Consideration for calciphylaxis, which if present would be a contraindication for use of Rocaltrol. The AV fistula in the left upper extremity has been tied off. 8. Severe hypothyroidism with TSH of more than 100, maintained on supplementation. 9. Acute non ST elevation myocardial infarction, currently on IV heparin. PLAN: Change PD exchanges to 2.5% solution q.6 hours. Continue calcium supplementation. I would avoid Rocaltrol given the significant gangrene and calcifications in view of possibility for calciphylaxis. Start the patient on oral midodrine as well. MMODL / IJN: [id number] /
[2017-08-29 15:34] LABS: Mononuclear WBC,Body Fluid 19 %; Polynuclear WBC,Body Fluid 81 %
[2017-08-29 15:53] LABS: Glucose,Whole Blood 123 mg/dL (75-99)
--- NOTE | 2017-08-29 16:46 | PN ---
PROGRESS NOTE Mrs. Ballard is still on a vent. Hemodynamically more stable. She is on a small dose of epi. Tolerated the beta carl well. She did have a [id number] NM, hypotension, significant decrease in LV function. Vital signs are better with a blood pressure in the 118 range on 3 mics of Epi. S1-S2 heard normally. Short systolic murmur noted. Lungs reveal diminished air entry. Abdomen is soft. Rest of physical examination is unchanged. Prognosis is guarded. We will continue a very small dose of beta carl cautiously and continue her other medications and see how she does. MMODL / IJN: [id number] /
[2017-08-29] MEDS: MIDODRINE 5 MG TAB PO SCH (16:56)
[2017-08-29 17:17] LABS: Glucose,Whole Blood 97 mg/dL (75-99)
[2017-08-29 18:22] LABS: Glucose,Whole Blood 83 mg/dL (75-99)
[2017-08-29 19:02] LABS: Glucose,Whole Blood 131 mg/dL (75-99)
[2017-08-29 19:58] LABS: Glucose,Whole Blood 127 mg/dL (75-99)
[2017-08-29] MEDS: INSULIN ASPART 100 UNIT/ML 1 ML 10 ML VIAL SQ SCH (22:01)
[2017-08-29] MEDS: MORPHINE SULFATE 2 MG/ML SYRINGE IVP PRN (22:38)
[2017-08-29] MEDS: HEPARIN SODIUM,PORCINE/D5W PMX 25,000 UNIT in DEXTROSE/WATER 1 500ML.BAG IV SCH (23:00)
[2017-08-30] MEDS: EPINEPHrine 2 MG in DEXTROSE 5% IN WATER 250 ML IV SCH ×2 (01:08)
[2017-08-30 02:13] LABS: Glucose,Whole Blood 117 mg/dL (75-99)
[2017-08-30] MEDS: INSULIN ASPART 100 UNIT/ML 1 ML 10 ML VIAL SQ SCH ×4 (02:34→23:35)
[2017-08-30] MEDS ORDERED: PROPOFOL 100 ML IV ONE (03:07)
[2017-08-30 03:50] LABS: ABG Base Excess -5.5 mmol/L; ABG HCO3 20 mmol/L (21-25); ABG Oxygen Saturation 94.8 % (94-97); ABG PCO2 34 mmHg (35-45); ABG PH 7.38 (7.35-7.45); ABG PO2 87 mmHg (83-108); ABG TCO2 21 mmol/L (19-24)
--- NOTE | 2017-08-30 03:51 | P.PN ---
Progress Note - Text Progress Note Date: 08/30/17 Around 3 AM, this morning, the patient became acutely short of breath. She became tachycardic with a heart rate of 120 to 130, sinus. She is adopted systolic blood pressure down to the mid 80s. She was switched to a quad strength levo fed infusion. She was intubated and placed on mechanical ventilator. Currently she is on 9 mics of norepinephrine infusion. The Artline was also replaced as it was malfunctioning and the left common Artline was inserted. The patient is currently intubated on a mechanical ventilator on assist control mode at the rate of 22, tidal volume 450, FiO2 of 100% and a PEEP of 5. Chest x-ray will be done. Keep the patient sedated for now. We'll check her blood gases and will do the necessity vent changes.
[2017-08-30 04:20] LABS: Basophils % (A) 0 %; Eosinophils # (A) 0.1 k/uL (0-0.7); Eosinophils % (A) 0 %; HCT 28.9 % (34.0-46.0); HGB 9.1 gm/dL (11.4-16.0); Lymphocytes # (A) 1.2 k/uL (1.0-4.8); Lymphocytes % (A) 6 %; MCH 28.5 pg (25.0-35.0); MCHC 31.4 g/dL (31.0-37.0); Mean Platelet Volume 7.8; Monocytes # (A) 0.6 k/uL (0-1.0); Monocytes % (A) 3 %; Neutrophils % (A) 90 %; Platelet Count 412 k/uL (150-450); RBC 3.18 m/uL (3.80-5.40); RDW 15.5 % (11.5-15.5); WBC 21.1 k/uL (3.8-10.6)
--- NOTE | 2017-08-30 04:48 | XR ---
EXAM: XR Chest, 1 View CLINICAL HISTORY: ITS.REASON XR Reason: intubation TECHNIQUE: Frontal view of the chest. COMPARISON: 08/29/17 FINDINGS: Endotracheal to above merlin at the level of the medial clavicles. Distal enteric tube subdiaphragmatic off film. The proximal side port is slightly past the GE junction. Enteric tube could be advanced by about 4- 5 cm for more ideal positioning. Postoperative cardiac changes again noted. There is increasing bilateral lung opacities including airspace opacities. May represent edema with other infiltrates not excluded. Pleural effusions appear similar. IMPRESSION: Well-positioned endotracheal tube. Proximal side port of enteric tube slightly past the GE junction. Could be advanced 4-5 cm for better positioning. Increasing lung opacities including airspace opacities. May represent worsening edema with other infiltrates not excluded. Suspect similar pleural effusions.
[2017-08-30 04:52] LABS: Magnesium 1.8 mg/dL (1.6-2.3); Phosphorus 7.9 mg/dL (2.5-4.5); Potassium 3.6 mmol/L (3.5-5.1)
[2017-08-30 04:58] LABS: Calcium 5.8 mg/dL (8.4-10.2)
[2017-08-30] MEDS: NOREPINEPHRIN 16 MG-0.9%NS PMX 16 MG/250 ML ML IV SCH ×2 (05:13→21:02)
[2017-08-30 05:33] LABS: Creatine Kinase MB 9.5 ng/mL (0.0-2.4); Troponin I 9.54 ng/mL (0.000-0.034)
[2017-08-30] MEDS: DIALYSIS (PERIT 2.5%) 2,000 ML 50 G/2,000 ML BAG INTRAPERIT SCH ×4 (06:01→23:50)
[2017-08-30] MEDS: NITROGLYCERIN OINT 1 INCH/GM PACKET TOPICAL SCH ×3 (06:03→18:42)
[2017-08-30] MEDS: HEPARIN SODIUM,PORCINE/D5W PMX 25,000 UNIT in DEXTROSE/WATER 1 500ML.BAG IV SCH (06:26)
--- NOTE | 2017-08-30 06:41 | PCN ---
PROCEDURE NOTE ENDOTRACHEAL INTUBATION: Preop Diagnosis: Acute respiratory failure. Postop Diagnosis: Acute respiratory failure. Indication: Respiratory compromise. A time-out was completed verifying correct patient, procedure, site, positioning, and implant(s) or special equipment if applicable. The patient was positioned appropriately and a #4 MAC blade laryngoscope and #8 orotracheal tube was placed under direct laryngoscopy. The tube was anchored at 22 cm at the teeth. Correct placement was confirmed by presence of bilateral breath sounds without air sounds in the abdomen on auscultation. An end-tidal CO2 monitor was also used to confirm tracheal placement of the ET tube. A chest x-ray was ordered to assess for pneumothorax and verify endotracheal tube placement. The patient tolerated the procedure well and there were no complications. No bedside complication or bleeding. MMODL / IJN: [id number] /
[2017-08-30] MEDS ORDERED: POTASSIUM BICARBONATE/CIT AC 20 MEQ TABLET.EFF PO ONE (06:44)
[2017-08-30] MEDS ORDERED: SODIUM CHLORIDE 0.9% IVPB STA (06:45)
[2017-08-30] MEDS ORDERED: CALCIUM CHLORIDE IVPB STA (06:45)
[2017-08-30] MEDS: PROPOFOL 1,000 MG in EMPTY BAG 1 BAG IV SCH ×3 (06:55→21:57)
[2017-08-30 07:05] LABS: Glucose,Whole Blood 69 mg/dL (75-99)
[2017-08-30 07:08] LABS: Glucose,Whole Blood 200 mg/dL (75-99)
[2017-08-30] MEDS: IPRATROPIUM-ALBUTEROL 3 ML NEB INHALATION SCH ×4 (07:16→19:06)
--- NOTE | 2017-08-30 07:17 | PCN ---
PROCEDURE NOTE ARTERIAL LINE PLACEMENT: Indication: Hemodynamic monitoring. Site of Insertion: Left femoral artery. Preop Diagnosis: Acute respiratory failure. Postop Diagnosis: Acute respiratory failure. A time-out was completed verifying correct patient, procedure, site, positioning, and implant(s) or special equipment if applicable. Rhett's test was performed to ensure adequate perfusion. The patient's left groin was prepped and draped in sterile fashion. 1% Lidocaine was used to anesthetize the area. An 18G Arrow arterial line was introduced into the femoral artery. The catheter was threaded over the guide wire and the needle was removed with appropriate pulsatile blood return. Blood loss was minimal. The catheter was then sutured in place to the skin and a sterile dressing applied. Perfusion to the extremity distal to the point of catheter insertion was checked and found to be adequate. The patient tolerated the procedure well and there were no complications. No bedside complications or bleeding. MMODL / IJN: [id number] /
[2017-08-30] MEDS: LEVOTHYROXINE IVP 100 MCG/5 ML VIAL IV SCH (08:06)
[2017-08-30] MEDS: MIDODRINE 5 MG TAB PO SCH ×2 (08:06→16:38)
[2017-08-30] MEDS: CHLORHEXIDINE GLUCONATE 15 ML CUP MUCOUS MEM SCH ×2 (08:06→21:02)
[2017-08-30] MEDS: MEROPENEM 500 MG in SODIUM CHLORIDE 0.9% 50 ML IVPB SCH (08:07)
[2017-08-30] MEDS: PANTOPRAZOLE 40 MG/10 ML VIAL IVP SCH (08:07)
[2017-08-30] MEDS: ASPIRIN 325 MG TAB PO SCH (08:19)
[2017-08-30 08:56] LABS: Vancomycin,Random 12.5 ug/mL
--- NOTE | 2017-08-30 09:38 | PN ---
PROGRESS NOTE This is a lady who has end-stage renal disease on peritoneal dialysis, advanced CAD with a reduced ejection fraction, came in with respiratory failure. She was extubated yesterday, but is back on the vent today. I believe she will benefit if there is hemodialysis where more fluid can be taken out. She may be able to come off the vent more easily. At this time, she had from a cardiac standpoint I would recommend that we switch her IV heparin to subcu heparin. Continue her other medications including a small dose of beta carl. Her overall prognosis is poor and she has she and she is known to have significant ischemic cardiomyopathy with reduced ejection fraction and the previous history of aortocoronary bypass surgery. Problem. We will continue to. I will await input from Nephrology with regards to hemodialysis for this patient , which may be a better option even if it is done temporarily during this acute phase of her illness with volume overload picture.Patient is in Sinus with left bundle. Physical examination revealed a blood pressure of 190/60, pulse rate is about 90 per minute S1-S2 heard normally short systolic murmur noted lungs reveal diminished air entry abdomen looks exam is unchanged indication. MMODL / IJN: [id number] / APURVA
[2017-08-30] MEDS ORDERED: CALCIUM CARBONATE 500 MG CHEWABLE PO PRN (09:39)
[2017-08-30] MEDS ORDERED: VANCOMYCIN 1,250 MG in SODIUM CHLORIDE 0.9% 250 ML IVPB ONE (10:00)
[2017-08-30] MEDS: METOPROLOL TARTRATE 12.5 MG TAB PO SCH (11:10)
[2017-08-30] MEDS: SEVELAMER 800 MG TAB PO SCH ×2 (11:58→16:37)
[2017-08-30 11:59] LABS: Glucose,Whole Blood 179 mg/dL (75-99)
--- NOTE | 2017-08-30 12:11 | P.PN ---
Subjective Progress Note Date: 08/30/17 Principal diagnosis: Acute hypoxic respiratory failure secondary to congestive heart failure, systolic in nature, abdominal sepsis. Secondary to group D enterococcus. This is a 67-year-old female patient with multiple medical problems and comorbidities who presented to ED with acute respiratory distress, intubated and placed on a mechanical ventilator and then moved to the intensive care unit. The patient has taken all of her care at [facility]. She has chronic renal failure and she currently has end stage renal disease and she is seeking kidney transportation the patient has been evaluated at [facility] for potential kidney transplant the daughter being her daughter. This patient lives in [place] and she recently moved in with her daughter living in [facility], and for that reason during this current episode the patient was brought in to our hospital. All of the information was obtained is from the daughters at the bedside This patient has developed renal failure, probably related to previous history of diabetes mellitus. She was started on peritoneal dialysis approximately year ago and she does nighttime cycler continuous with a 1.5 fluid exchange. This was started on high-dose in November 2016. Hemodialysis was considered and the patient was about to have a left upper extremity AV fistula. The fistula itself got clotted and the patient developed also ulceration in her digits bilaterally and for that reason this was not pursued. Currently the patient is gangrenous necrotic digits of the middle fingers of the left and the fourth finger on the right, affecting the tips. This was investigated at length at [facility]. The patient underwent a CT angios of the entire chest abdomen pelvis and extremities and she was found to have no significant subclavian axillary or brachial artery narrowing. She was found to have diffuse atherosclerosis with calcification of the bilateral radial and ulnar arteries and mild to moderate narrowing in the areas affecting the wrist. Atherosclerotic changes were also seen in the infrarenal abdominal aortic area which was estimated to be severe. Bilateral iliofemoral atherosclerotic changes were also seen. The patient was told to have small vessel disease and based on the reported history there was no evidence of any embolic phenomena or vasculitis The patient is known to have coronary artery disease and she has undergone pleased bypass surgery. She was morbidly obese and she was diabetic. She has undergone gastric bypass surgery more than 6 years ago and she has lost considerable amount of weight and during this time the patient was taken off as soon as she improved in terms of her blood sugar control and she started having episodes of hypoglycemia. Currently she is off anticoagulation. She also has chronic atrial fibrillation, chronic renal failure and currently she is on peritoneal dialysis, she hasn't complications of hyperkalemia, and she has history of hypertension, hyperlipidemia, hypothyroidism, peripheral vascular disease and previous history of coronary artery disease and myocardial infarction. The patient was at her daughter's home where she was feeling weak. In the clerk general hours the patient was found by the daughter collapsed in the bathroom. No reported chest pain or palpitations. No focal neurological deficit. The patient was lethargic and she was arousable and she was able to speak. She was moving all 4 extremities according to the history. No fever. No chills. No cough or sputum production. No nausea, vomiting or abdominal pain. The PD catheter was apparently functional. No skin rashes. Necrotic digits were seen bilaterally and these are dry gangrene. In the ED, the patient was found to be hypotensive postintubation. The patient was started on IV fluids and pressors. The patient was started on epinephrine infusion. She was intubated and blood gas showed severe metabolic acidosis. The chest x-ray shows cardiomegaly and pulmonary vessel congestion. ET tube was in a good location. No consolidation . Meanwhile, the patient's white cell count was at 14.2. The patient had a potassium level of 6.5 was being treated in the emergency department with a combination of Kayexalate, D50 and insulin and bicarb and the patient was severely acidotic with anion gap metabolic acidosis with a gap of 26 and a bicarb level of 5, creatinine of 9.4, and a troponin level of 1.2. EKG is not showing any acute ischemic abnormalities and is showing a normal sinus rhythm with a left bundle-branch block pattern. Subsequent potassium level was 7.1. Waldemar saw the patient in the ICU and we're going to start peritoneal dialysis. Meanwhile the patient is being resuscitated IV fluids. We'll start empiric antibiotic coverage. We'll monitor cardiac enzymes and obtain an echocardiogram. The computed tomography scan of the brain and C-spine showed no evidence of acute fracture and there was no evidence of any acute intracranial hemorrhage. On 08/28/2018 I'm seeing this patient for a follow-up. This is a very complicated case with present it with severe metabolic acidosis, respiratory failure, hyperkalemia and hypotension. The patient is being seen today in a follow-up. The patient remains sedated on a mechanical ventilator. This morning, she doesn't assist-control at the rate of 22, tidal volume 600, FiO2 of 50% and a PEEP of 5. Blood gases showed a component of acute respiratory alkalosis and the pH was at 7.47 with a pCO2 of 27 and pO2 1:30. Based on that , I dropped the tidal volume down to 500 by mouth I also drop the FiO2 down to 40%. Chest x-ray still showing a component of pulmonary vessel congestion and small bilateral pleural effusion. CT angios the chest was done yesterday and showed cardiomegaly and bilateral pleural effusion and pulmonary vascular congestion. He was no evidence of any pulmonary embolism. The patient is only on few mics of the low-fat for hemodynamic support. Troponin peaked at 7 and the patient is still on IV heparin and aspirin.. The patient had an echocardiogram yesterday that showed severe impaired LV function with an ejection fraction of 25-30%. In addition, there was segmental wall motion abnormalities involving the inferior wall and anteroseptal wall septum. The right ventricular pressure was estimated to be 42 mmHg. There was no significant valvular abnormalities. Left atrium was dilated. There was mild aortic stenosis. The patient had cultures sent and the blood culture and the abdominal fluid culture came back all negative. She remains on a combination of vancomycin and meropenem. Afebrile. White cell count is not elevated. Infected has dropped from 17 down to 11.9. Potassium level has also dropped down to 3.7 and the patient has a bicarb level which is up to 17. Calcium level is at 6.4. Phosphorus level is at 8.1. The patient was receiving abdominal PD 4 times a day with a 1.5% solution. Furthermore, the patient was noted to be somewhat hypothyroid with a TSH of 101 100 and a free T4 of 0.74. She was placed on 100 mg of IV Synthroid on a daily basis. Her hypothermia has also recovered. She is on tube feeds for now. Family is at the bedside. On 08/29/2017, I'm seeing this patient for a follow-up. The patient remains intubated on mechanical ventilator. This morning, she did assist-control mode at a rate of 22, tidal volume 500, FiO2 of 40% and a PEEP of 5. The blood gases still showing a component of respiratory alkalosis with a pH of 7.49 and a pCO2 of 32 and pO2 97. Based on this, I dropped the tidal volume down to 450. The patient will be given a sedation holiday again and we'll check weaning parameters and assess his readiness to wean. Upon yesterday's sedation holiday, the patient woke up last and she was able to follow some simple commands. Hemodynamically, the patient is still requiring 2 mics of epinephrine for blood pressure control. The patient is undergoing peritoneal dialysis with several exchanges on a daily basis with her 2.5% solution. The patient has no fever. No chills. Cultures of been negative. She was covered with a combination of Merrem and vancomycin. White cell count is at 17.4. The serum bicarb is up to 21 and there is no hyperkalemia. No other significant abnormalities otherwise for now. Patient was reevaluated today on 08/30/2017, remains on mechanical ventilation, intubated, sedated, remains on relatively high FiO2 100% which I cut down to 70% , and PEEP is at 8. Patient has abnormal chest x-ray showing interstitial edema , I believe the patient has fluid overload although the possibility of noncardiogenic pulmonary edema is not entirely ruled out, but considering the patient's LV dysfunction and considering she has an EF of 25%, this is most likely cardiogenic pulmonary edema in nature. Patient is not making much urine , she is still under peritoneal dialysis, and I believe we are not able to remove significant amount of fluids to improve her pulmonary status. Patient may eventually require hemodialysis. However she is still on a small dose of levo fed, may be able to cut it down and eventually arrange for hemodialysis. Labs were reviewed WBC count is 21.1 hemoglobin is 9.1 ABG showed a pO2 of 87 pCO2 of 34 pH of 7.38. Basic metabolic profile was reviewed continues to have an iron gap of 18 BUN is 67 creatinine 4.60. Chest x-ray as noted above endotracheal tube is intact and in the proper position. Chest x-ray again is consistent with pulmonary edema. Objective - Vital Signs Vital signs: Vital Signs Temp 99.3 F 08/30/17 11:00 Pulse 90 08/30/17 11:16 Resp 20 08/30/17 11:00 BP 86/56 08/30/17 07:00 Pulse Ox 100 08/30/17 11:00 Intake & Output 08/29/17 08/30/17 08/30/17 18:59 06:59 18:59 Intake Total 666.654 557.968 463.021 Output Total 250 235 12 Balance 416.654 322.968 451.021 Weight 73.5 kg 74.9 kg 76.3 kg Intake: IV 440 205 200 Magnesium Sulfate-D5w Pmx 100 1 gm In Dextrose/Water 1 100ml.bag @ 100 mls/hr IVPB Q1H ALEXANDRA Rx#: [id number] Meropenem 500 mg In 100 50 Sodium Chloride 0.9% 50 ml @ 100 mls/hr IVPB Q24HR ALEXANDRA Rx#:[id number] Potassium Chloride 10 meq 100 In Water For Injection 1 100ml.bag @ 100 mls/hr IVPB Q1H ALEXANDRA Rx#: [id number] sodium chloride 0.9% 1, 240 205 50 000 ml KVO Intake, IV Titration 226.654 352.968 143.021 Amount EPINEPHrine 2 mg In 173.943 0 Dextrose 5% in Water 250 ml @ 2 MCG/MIN 15.12 mls/ hr IV .[id number] ALEXANDRA Rx#: [id number] Heparin Sodium,Porcine/ 343.545 D5w Pmx 25,000 unit In Dextrose/Water 1 500ml. bag @ 12 UNITS/KG/HR 13. 49 mls/hr IV .Q24H ALEXANDRA Rx #:[id number] Insulin Regular 100 unit 3.131 In Sodium Chloride 0.9% 100 ml @ Per Protocol IV .Q0M ALEXANDRA Rx#:[id number] Norepinephrin 16 mg-0.9% 9.423 73.688 Ns Pmx 16 mg In 250 ml @ Titrate IV .Q0M ALEXANDRA Rx#: [id number] Propofol 1,000 mg In 49.58 Empty Bag 1 bag @ Titrate IV .Q0M ALEXANDRA Rx#: [id number] Propofol 1,000 mg In 69.333 Empty Bag 1 bag @ Titrate IV .Q0M ALEXANDRA Rx#: [id number] Other 120 Output: Urine 250 235 12 Other: Voiding Method Indwelling Catheter Indwelling Catheter Indwelling Catheter # Bowel Movements 3 ABP, PAP, CO, CI - Last Documented Arterial Blood Pressure 89/52 - Exam Appearance the patient is intubated, comfortable likely distress sedated at this point Head exam was generally normal. There was no scleral icterus or corneal arcus. Mucous membranes were moist. The patient has an orogastric and orotracheal tube are both in place and secured. Neck was supple and without jugular venous distension, thyromegaly, or carotid bruits. Carotids were easily palpable bilaterally. There was no adenopathy. Lungs sounds are diminished bilaterally along with some scattered rhonchi and bilateral crackles in lung bases. No wheezing. ET tube is in a good location. Heart sounds are regular, positive S1-S2, no significant murmurs appreciated. Sternum stable treatment intact and scar of previous thoracotomy is intact. Abdominal exam revealed normal bowel sounds. The abdomen was soft, non-tender, and without masses, organomegaly, or appreciable enlargement of the abdominal aorta. The patient has a PD catheter which is in place and there is no direct tenderness or rebound tensile guarding. Extremities revealed no edema. Pulses in lower extremities are markedly diminished. The patient has necrotic digits at the tips of the digits involving the third mid finger on the left and the fourth finger on the right. There is evidence of dry gangrene. No evidence of any wound infection. The area is pretty much black and necrotic. No lower extremities edema. No cyanosis. Neurologic the patient is sedated. She is despite to deep painful stimuli. - Labs CBC & Chem 7: 08/30/17 04:00 08/30/17 04:00 Labs: Abnormal Lab Results - Last 24 Hours (Table) 08/29/17 08/29/17 08/29/17 Range/Units 11:59 12:32 14:22 WBC (3.8-10.6) k/uL RBC (3.80-5.40) m/uL Hgb (11.4-16.0) gm/dL Hct (34.0-46.0) % Neutrophils # (1.3-7.7) k/uL APTT (22.0-30.0) sec ABG pH 7.54 H (7.35-7.45) ABG pCO2 27 L (35-45) mmHg ABG pO2 127 H (83-108) mmHg ABG HCO3 (21-25) mmol/L ABG O2 Saturation 98.2 H (94-97) % Sodium (137-145) mmol/L Chloride (98-107) mmol/L Carbon Dioxide (22-30) mmol/L BUN (7-17) mg/dL Creatinine (0.52-1.04) mg/dL Glucose (74-99) mg/dL POC Glucose (mg/dL) 114 H 156 H (75-99) mg/dL Calcium (8.4-10.2) mg/dL Phosphorus (2.5-4.5) mg/dL Total Creatine Kinase (30-135) U/L CK-MB (CK-2) (0.0-2.4) ng/mL Troponin I (0.000-0.034) ng/mL 08/29/17 08/29/17 08/29/17 Range/Units 15:52 19:01 19:56 WBC (3.8-10.6) k/uL RBC (3.80-5.40) m/uL Hgb (11.4-16.0) gm/dL Hct (34.0-46.0) % Neutrophils # (1.3-7.7) k/uL APTT (22.0-30.0) sec ABG pH (7.35-7.45) ABG pCO2 (35-45) mmHg ABG pO2 (83-108) mmHg ABG HCO3 (21-25) mmol/L ABG O2 Saturation (94-97) % Sodium (137-145) mmol/L Chloride (98-107) mmol/L Carbon Dioxide (22-30) mmol/L BUN (7-17) mg/dL Creatinine (0.52-1.04) mg/dL Glucose (74-99) mg/dL POC Glucose (mg/dL) 123 H 131 H 127 H (75-99) mg/dL Calcium (8.4-10.2) mg/dL Phosphorus (2.5-4.5) mg/dL Total Creatine Kinase (30-135) U/L CK-MB (CK-2) (0.0-2.4) ng/mL Troponin I (0.000-0.034) ng/mL 08/30/17 08/30/17 08/30/17 Range/Units 02:11 03:44 04:00 WBC (3.8-10.6) k/uL RBC (3.80-5.40) m/uL Hgb (11.4-16.0) gm/dL Hct (34.0-46.0) % Neutrophils # (1.3-7.7) k/uL APTT (22.0-30.0) sec ABG pH (7.35-7.45) ABG pCO2 34 L (35-45) mmHg ABG pO2 (83-108) mmHg ABG HCO3 20 L (21-25) mmol/L ABG O2 Saturation (94-97) % Sodium 133 L (137-145) mmol/L Chloride 97 L (98-107) mmol/L Carbon Dioxide 18 L (22-30) mmol/L BUN 67 H (7-17) mg/dL Creatinine 4.60 H (0.52-1.04) mg/dL Glucose 193 H (74-99) mg/dL POC Glucose (mg/dL) 117 H (75-99) mg/dL Calcium 5.8 L* (8.4-10.2) mg/dL Phosphorus 7.9 H (2.5-4.5) mg/dL Total Creatine Kinase (30-135) U/L CK-MB (CK-2) (0.0-2.4) ng/mL Troponin I (0.000-0.034) ng/mL 08/30/17 08/30/17 08/30/17 Range/Units 04:00 04:00 05:25 WBC 21.1 H (3.8-10.6) k/uL RBC 3.18 L (3.80-5.40) m/uL Hgb 9.1 L (11.4-16.0) gm/dL Hct 28.9 L (34.0-46.0) % Neutrophils # 19.0 H (1.3-7.7) k/uL APTT 63.8 H (22.0-30.0) sec ABG pH (7.35-7.45) ABG pCO2 (35-45) mmHg ABG pO2 (83-108) mmHg ABG HCO3 (21-25) mmol/L ABG O2 Saturation (94-97) % Sodium (137-145) mmol/L Chloride (98-107) mmol/L Carbon Dioxide (22-30) mmol/L BUN (7-17) mg/dL Creatinine (0.52-1.04) mg/dL Glucose (74-99) mg/dL POC Glucose (mg/dL) (75-99) mg/dL Calcium (8.4-10.2) mg/dL Phosphorus (2.5-4.5) mg/dL Total Creatine Kinase 292 H (30-135) U/L CK-MB (CK-2) 9.5 H* (0.0-2.4) ng/mL Troponin I 9.540 H* (0.000-0.034) ng/mL 08/30/17 08/30/17 08/30/17 Range/Units 07:03 07:06 11:57 WBC (3.8-10.6) k/uL RBC (3.80-5.40) m/uL Hgb (11.4-16.0) gm/dL Hct (34.0-46.0) % Neutrophils # (1.3-7.7) k/uL APTT (22.0-30.0) sec ABG pH (7.35-7.45) ABG pCO2 (35-45) mmHg ABG pO2 (83-108) mmHg ABG HCO3 (21-25) mmol/L ABG O2 Saturation (94-97) % Sodium (137-145) mmol/L Chloride (98-107) mmol/L Carbon Dioxide (22-30) mmol/L BUN (7-17) mg/dL Creatinine (0.52-1.04) mg/dL Glucose (74-99) mg/dL POC Glucose (mg/dL) 69 L 200 H 179 H (75-99) mg/dL Calcium (8.4-10.2) mg/dL Phosphorus (2.5-4.5) mg/dL Total Creatine Kinase (30-135) U/L CK-MB (CK-2) (0.0-2.4) ng/mL Troponin I (0.000-0.034) ng/mL Microbiology - Last 24 Hours (Table) 08/30/17 03:57 Sputum Culture - Preliminary Sputum 08/27/17 23:20 Gram Stain - Preliminary Sputum Sputum Culture - Preliminary 08/27/17 14:10 Gram Stain - Preliminary Peritoneal Fluid Body Fluid Culture - Preliminary Group D Enterococcus 08/27/17 11:00 Blood Culture - Preliminary Blood No Growth after 48 hours Assessment and Plan Assessment: 1 acute hypoxic respiratory failure, multifactorial, still on that investigation. The patient has a component of fluid overload and pulmonary vessel congestion small bilateral pleural effusion. The severe metabolic acidosis that contributed to respiratory failure has subsided. 2 acute hypotension , currently on few mics of epinephrine infusion for blood pressure support. The patient was found to have cardiomyopathy with severe impairment of the LV function with an ejection fraction of 25% in addition to an acute non-ST segment elevation myocardial infarction. The patient is still requiring few mics of epinephrine for blood pressure control. 3 acute non-STEMI [place] troponin peaked at 7, still on a combination of aspirin and IV heparin 4 coronary artery disease with previous coronary artery bypass surgery 5 End stage renal disease on hemodialysis via peritoneal dialysis. The patient has been on PD since November 2016. 6 acute hyperkalemia secondary to severe metabolic acidosis and the patient apparently was taking potassium supplements on outpatient basis. No EKG changes at this point in time of the patient's hyperkalemia was treated and the potassium level has completely normalized. 7 severe anion gap metabolic acidosis, concern for lactic acidosis secondary to sepsis/hypotension, recovered 8 history of obesity status post gastric bypass surgery 9 diabetes mellitus recovered following bariatric surgery and the patient is currently on no diabetic medications 10 hypertension, history of 11 hypothyroidism, chemically still hypothyroid with a TSH of more than 100 and a free T4 of 0.74 and the patient will be kept on IV Synthroid. 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 15 seeking kidney transplantation to [facility] 16 chronic anemia, normocytic 17 hypoproteinemia and hypoalbuminemia 18 hypothermia, recovered 19 severe peripheral vascular disease 20 acute abdominal sepsis is not entirely ruled out, the peritoneal fluid is positive for group D enterococcus, patient is presently on vancomycin and Merrem , infectious disease consultation was initiated. Recommendation: Continue all present meds, continue mechanical ventilation, cut down the FiO2 as tolerated, keep the PEEP at 8 for now, may need to consider hemodialysis otherwise her pulmonary status may not improve much. We'll continue to follow. Prognosis remains poor and guarded, discussed her condition with her daughter at bedside. Critical care time is 40 minutes. Time with Patient: Greater than 30
--- NOTE | 2017-08-30 14:20 | P.PN ---
Subjective Progress Note Date: 08/30/17 Progress note being dictated for Dr. Bae. 65-year-old the being treated for acute respiratory failure secondary to sepsis source unclear possibly lower limb ulcerations or paratonia him. Patient remains intubated patient is presently on 40% FiO2 PEEP of 5 and tidal volume of 500 continues to have metabolic acidosis which improved compared to yesterday. Patient is undergoing peritoneal dialysis remains on epinephrine, propofol drip, IV heparin for possible non-ST elevation myocardial infarction, on antibiotics meropenem and vancomycin with the so for negative cultures, very minimal urine output, hypotension improved, possibility of a superimposed cardiac sharp with bilateral pleural effusions 08/29/2017 Patient is off sedation undergoing weaning trials, on 1 g of epinephrine. Patient is awake and arousable intubated on BiPAP through ventilator 08/30/17 reintubated last night with FiO2 at 70%/+8 of PEEP. Chest x-ray reporting increasing lung opacity's, worsening edema and or infiltrates. Maintained on DIprova, heparin and Levophed drips. Troponin up to 9.5. Minimal urine output. Peritoneal dialysis cultures reporting enterococcus. Potential hemodialysis being discussed. Telemetry sinus rhythm. Objective - Vital Signs Vital signs: Vital Signs Temp 100.2 F H 08/30/17 13:00 Pulse 102 H 08/30/17 13:00 Resp 22 08/30/17 13:00 BP 125/71 08/30/17 12:00 Pulse Ox 99 08/30/17 13:00 Intake & Output 08/29/17 08/30/17 08/30/17 18:59 06:59 18:59 Intake Total 666.654 557.968 753.701 Output Total 250 235 28 Balance 416.654 322.968 725.701 Weight 73.5 kg 74.9 kg 76.3 kg Intake: IV 440 205 220 Magnesium Sulfate-D5w Pmx 100 1 gm In Dextrose/Water 1 100ml.bag @ 100 mls/hr IVPB Q1H [facility] Rx#: [id number] Meropenem 500 mg In 100 50 Sodium Chloride 0.9% 50 ml @ 100 mls/hr IVPB Q24HR [facility] Rx#:[id number] Potassium Chloride 10 meq 100 In Water For Injection 1 100ml.bag @ 100 mls/hr IVPB Q1H [facility] Rx#: [id number] sodium chloride 0.9% 1, 240 205 70 000 ml KVO Intake, IV Titration 226.654 352.968 413.701 Amount EPINEPHrine 2 mg In 173.943 0 Dextrose 5% in Water 250 ml @ 2 MCG/MIN 15.12 mls/ hr IV .[id number] [facility] Rx#: [id number] Heparin Sodium,Porcine/ 343.545 D5w Pmx 25,000 unit In Dextrose/Water 1 500ml. bag @ 12 UNITS/KG/HR 13. 49 mls/hr IV .Q24H [facility] Rx #:[id number] Insulin Regular 100 unit 3.131 In Sodium Chloride 0.9% 100 ml @ Per Protocol IV .Q0M [facility] Rx#:[id number] Norepinephrin 16 mg-0.9% 9.423 94.368 Ns Pmx 16 mg In 250 ml @ Titrate IV .Q0M [facility] Rx#: [id number] Propofol 1,000 mg In 49.58 Empty Bag 1 bag @ Titrate IV .Q0M [facility] Rx#: [id number] Propofol 1,000 mg In 69.333 Empty Bag 1 bag @ Titrate IV .Q0M [facility] Rx#: [id number] Vancomycin 1,250 mg In 250 Sodium Chloride 0.9% 250 ml @ 125 mls/hr IVPB ONCE ONE Rx#:[id number] Other 120 Output: Urine 250 235 28 Other: Voiding Method Indwelling Catheter Indwelling Catheter Indwelling Catheter # Bowel Movements 3 0 ABP, PAP, CO, CI - Last Documented Arterial Blood Pressure 118/67 - Exam GENERAL: Intubated and sedated on Diprovan HEENT: Pupils are round and equally reacting to light. EOMI. No scleral icterus. No conjunctival pallor. Normocephalic, atraumatic. No pharyngeal erythema. No thyromegaly. CARDIOVASCULAR: S1 and S2 present. No murmurs, rubs, or gallops. Tachycardic PULMONARY: Good air entry treatment with mechanical ventilator sounds and bibasilar crackles are appreciated ABDOMEN: Soft, nontender, nondistended, normoactive bowel sounds. No palpable organomegaly. PD catheter present. MUSCULOSKELETAL: No joint swelling or deformity. EXTREMITIES: Multiple ulcerations in bilateral lower limbs and wounds please refer to nursing documentation for further details, markedly diminished bilateral dorsalis pedis pulses and dry gangrene of third and fourth right toes NEUROLOGICAL: Currently unable to assess, sedated SKIN: No rashes. Microbiology 08/27/17 11:00 Blood Blood Culture - Preliminary No Growth after 72 hours 08/27/17 23:20 Sputum Gram Stain - Final 08/27/17 23:20 Sputum Sputum Culture - Final 08/30/17 03:57 Sputum Sputum Culture - Preliminary 08/27/17 14:10 Peritoneal Fluid Gram Stain - Preliminary 08/27/17 14:10 Peritoneal Fluid Body Fluid Culture - Preliminary Group D Enterococcus 08/27/17 20:00 Urine,Catheterized Urine Culture - Final - Labs CBC & Chem 7: 08/30/17 04:00 08/30/17 04:00 Labs: Abnormal Lab Results - Last 24 Hours (Table) 08/29/17 08/29/17 08/29/17 Range/Units 14:22 15:52 19:01 WBC (3.8-10.6) k/uL RBC (3.80-5.40) m/uL Hgb (11.4-16.0) gm/dL Hct (34.0-46.0) % Neutrophils # (1.3-7.7) k/uL APTT (22.0-30.0) sec ABG pCO2 (35-45) mmHg ABG HCO3 (21-25) mmol/L Sodium (137-145) mmol/L Chloride (98-107) mmol/L Carbon Dioxide (22-30) mmol/L BUN (7-17) mg/dL Creatinine (0.52-1.04) mg/dL Glucose (74-99) mg/dL POC Glucose (mg/dL) 156 H 123 H 131 H (75-99) mg/dL Calcium (8.4-10.2) mg/dL Phosphorus (2.5-4.5) mg/dL Total Creatine Kinase (30-135) U/L CK-MB (CK-2) (0.0-2.4) ng/mL Troponin I (0.000-0.034) ng/mL 08/29/17 08/30/17 08/30/17 Range/Units 19:56 02:11 03:44 WBC (3.8-10.6) k/uL RBC (3.80-5.40) m/uL Hgb (11.4-16.0) gm/dL Hct (34.0-46.0) % Neutrophils # (1.3-7.7) k/uL APTT (22.0-30.0) sec ABG pCO2 34 L (35-45) mmHg ABG HCO3 20 L (21-25) mmol/L Sodium (137-145) mmol/L Chloride (98-107) mmol/L Carbon Dioxide (22-30) mmol/L BUN (7-17) mg/dL Creatinine (0.52-1.04) mg/dL Glucose (74-99) mg/dL POC Glucose (mg/dL) 127 H 117 H (75-99) mg/dL Calcium (8.4-10.2) mg/dL Phosphorus (2.5-4.5) mg/dL Total Creatine Kinase (30-135) U/L CK-MB (CK-2) (0.0-2.4) ng/mL Troponin I (0.000-0.034) ng/mL 08/30/17 08/30/17 08/30/17 Range/Units 04:00 04:00 04:00 WBC 21.1 H (3.8-10.6) k/uL RBC 3.18 L (3.80-5.40) m/uL Hgb 9.1 L (11.4-16.0) gm/dL Hct 28.9 L (34.0-46.0) % Neutrophils # 19.0 H (1.3-7.7) k/uL APTT (22.0-30.0) sec ABG pCO2 (35-45) mmHg ABG HCO3 (21-25) mmol/L Sodium 133 L (137-145) mmol/L Chloride 97 L (98-107) mmol/L Carbon Dioxide 18 L (22-30) mmol/L BUN 67 H (7-17) mg/dL Creatinine 4.60 H (0.52-1.04) mg/dL Glucose 193 H (74-99) mg/dL POC Glucose (mg/dL) (75-99) mg/dL Calcium 5.8 L* (8.4-10.2) mg/dL Phosphorus 7.9 H (2.5-4.5) mg/dL Total Creatine Kinase 292 H (30-135) U/L CK-MB (CK-2) 9.5 H* (0.0-2.4) ng/mL Troponin I 9.540 H* (0.000-0.034) ng/mL 08/30/17 08/30/17 08/30/17 Range/Units 05:25 07:03 07:06 WBC (3.8-10.6) k/uL RBC (3.80-5.40) m/uL Hgb (11.4-16.0) gm/dL Hct (34.0-46.0) % Neutrophils # (1.3-7.7) k/uL APTT 63.8 H (22.0-30.0) sec ABG pCO2 (35-45) mmHg ABG HCO3 (21-25) mmol/L Sodium (137-145) mmol/L Chloride (98-107) mmol/L Carbon Dioxide (22-30) mmol/L BUN (7-17) mg/dL Creatinine (0.52-1.04) mg/dL Glucose (74-99) mg/dL POC Glucose (mg/dL) 69 L 200 H (75-99) mg/dL Calcium (8.4-10.2) mg/dL Phosphorus (2.5-4.5) mg/dL Total Creatine Kinase (30-135) U/L CK-MB (CK-2) (0.0-2.4) ng/mL Troponin I (0.000-0.034) ng/mL 08/30/17 Range/Units 11:57 WBC (3.8-10.6) k/uL RBC (3.80-5.40) m/uL Hgb (11.4-16.0) gm/dL Hct (34.0-46.0) % Neutrophils # (1.3-7.7) k/uL APTT (22.0-30.0) sec ABG pCO2 (35-45) mmHg ABG HCO3 (21-25) mmol/L Sodium (137-145) mmol/L Chloride (98-107) mmol/L Carbon Dioxide (22-30) mmol/L BUN (7-17) mg/dL Creatinine (0.52-1.04) mg/dL Glucose (74-99) mg/dL POC Glucose (mg/dL) 179 H (75-99) mg/dL Calcium (8.4-10.2) mg/dL Phosphorus (2.5-4.5) mg/dL Total Creatine Kinase (30-135) U/L CK-MB (CK-2) (0.0-2.4) ng/mL Troponin I (0.000-0.034) ng/mL Microbiology - Last 24 Hours (Table) 08/27/17 11:00 Blood Culture - Preliminary Blood No Growth after 72 hours 08/27/17 23:20 Gram Stain - Final Sputum Sputum Culture - Final 08/30/17 03:57 Sputum Culture - Preliminary Sputum 08/27/17 14:10 Gram Stain - Preliminary Peritoneal Fluid Body Fluid Culture - Preliminary Group D Enterococcus Assessment and Plan Assessment: -Septic shock with possibility of cardiac shock: Patient is on broad-spectrum antibiotics. Acute Hypoxic respiratory failure, mechanical ventilator-dependent , re-intubated. Severe cardiomyopathy ejection fraction of around 25%. -Congestive heart failure systolic dysfunction unsure whether it's chronic and acute, in acute exacerbation -Acute hypoxic respiratory failure secondary to sepsis patient is presently intubated. -Possibility of acute non-ST elevation myocardial infarction with troponin elevation. 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 Maintain vancomycin and Merrem, infectious disease consulted. Follow closely with multiple consults. Patient's overall prognosis is extremely poor . The impression and plan of care has been dictated as directed. : I performed a history and examination of this patient, discussed the same with the dictator. I agree with the dictator's note ,documented as a scribe. Any additional findings or plans will be noted.
--- NOTE | 2017-08-30 15:56 | PN ---
PROGRESS NOTE Patient is seen for followup for end-stage renal disease. Patient was extubated yesterday; however, later on during the day she was re-intubated mainly secondary to pulmonary vascular congestion. Patient is also on Levophed. She was initially at 18 mcg this morning and it was down to 10 mcg when I saw her this morning. On examination, patient is sedated. She is on the vent. Blood pressure 118/67, heart rate 102 per minute. She has a temperature of 100.2 degrees Fahrenheit. EXAMINATION OF THE HEART: S1, S2. EXAMINATION OF LUNGS: Bilateral breath sounds are heard. ABDOMEN: Soft, non-tender. Examination of lower extremities shows no significant edema. There is gangrene noted on the right third finger as well as on the left hand. HEAD CONTROL CLERK exam cannot be performed in detail. Labs show sodium 133, potassium 3.6, BUN of 67, serum creatinine 4.6, hemoglobin 9.1 g/dL. ASSESSMENT: 1. End-stage renal disease, on peritoneal dialysis, currently on 2.5% solutions q.6 hours. Patient did not have much ultrafiltration with the 2.5% solution yesterday. I will change her to hemodialysis to help with the volume overload, and this will help expedite the extubation as well. Later on today, if her blood pressure remains stable and patient's Levophed is being weaned down, I will proceed with vascular surgery consult for PermCath placement. 2. Vent-dependent respiratory failure. Patient was re-intubated secondary to pulmonary edema. 3. Anemia of chronic disease, maintained on Aranesp. 4. Peritonitis with fluid culture growing group D enterococcus. Initial white cell count was 170. Repeat PD fluid cell count was only 35. 5. Hypocalcemia. I am reluctant to use a lot of calcium, given the gangrene in her upper extremities and the possibility for calciphylaxis. However, given the hypocalcemia, we will replace cautiously. Patient's albumin is also significantly low; therefore the corrected calcium is not too low. PLAN: Initiate hemodialysis if the patient remains hemodynamically stable to help with the volume status. MMODL / IJN: [id number] /
--- NOTE | 2017-08-30 17:25 | P.CONS ---
History of Present Illness - Reason for Consult Consult date: 08/30/17 - Chief Complaint respiratory distress - History of Present Illness 67-year-old female presented visit care unit where she was intubated sedated and mechanically ventilated receiving her CAPD. Is related from the available data that she receives her to [facility] and has been cared for in [facility] in [place] where she's been evaluated for renal transplantation from a living related donor, her daughter. The patient has a long-standing history of diabetes mellitus type 2 and has end- stage renal disease related to this and normally is cared for with. Dialysis via the nighttime cycler, and has been doing this well in November 2016. Patient has known severe peripheral vascular disease and did apparently have a left upper extremity AV fistula that was placed however did not function well and with the what appears to be steal syndrome is without evidence the dry gangrenous third and fourth fingers of the left hand. Is also developed a dry gangrenous changes to the right hand middle finger also. consider gastric bypass she remains with severe obesity although apparently it has improved and she has underlying cardiovascular disease and severe peripheral vascular disease. the patient has evidence of a peritoneal dialysis sample with evidence of enterococcus and with at the infectious diseases consultation was requested. Review of Systems ROS unobtainable: due to endotracheal tube Past Medical History Past Medical History: Coronary Artery Disease (CAD), COPD, Diabetes Mellitus, GERD/Reflux, GI Bleed, Hyperlipidemia, Hypertension, Renal Disease, Syncope, Vascular Disorder Additional Past Medical History / Comment(s): Coronary artery disease, previous bypass surgery, COPD, and stage renal disease currently on hemodialysis, morbid obesity with a previous bariatric surgery, history of diabetes mellitus currently off treatment, hyperlipidemia, hypertension, acid reflux, severe peripheral vascular disease, necrotic digits with dry gangrene is related to small vessel disease, chronic anemia, previous blood transfusions, previous myocardial infarction, currently on hemodialysis, peptic ulcer disease, history of falls, History of Any Multi-Drug Resistant Organisms: None Reported Past Surgical History: Bariatric Surgery, Coronary Bypass/CABG, Heart Catheterization Additional Past Surgical History / Comment(s): Approximately 2002 CABG-[address] [facility], multiple angiograms, colonoscopies/benign polypectomies, EGDs, bilateral laser surgery for cataract removals, gastric bypass. Past Anesthesia/Blood Transfusion Reactions: No Reported Reaction Additional Past Anesthesia/Blood Transfusion Reaction / Comm: Pt has received blood in past without reaction. Smoking Status: Former smoker - Past Family History Father Family Medical History: Cancer Additional Family Medical History / Comment(s): Father had multiple myeloma. He at the age of 87yrs. Mother Family Medical History: Myocardial Infarction (MN) Additional Family Medical History / Comment(s): Mother of a massive MN at the age of 62 yrs. Medications and Allergies Home Medications and Allergies Comment(s): Current Medications Albuterol/Ipratropium (Duoneb 0.5 Mg-3 Mg/3 Ml Soln) 3 ml INHALATION RT-QID ALEXANDRA Last Admin: 08/30/17 15:15 Dose: 3 ml Albuterol/Ipratropium (Duoneb 0.5 Mg-3 Mg/3 Ml Soln) 3 ml INHALATION RT-Q2H PRN PRN Reason: Shortness Of Breath Or Wheezing Aspirin (Aspirin) 325 mg PO DAILY ALEXANDRA Last Admin: 08/30/17 08:19 Dose: 325 mg Calcium Carbonate/Glycine (Tums) 500 mg PO DAILY PRN PRN Reason: Heartburn Chlorhexidine Gluconate (Peridex) 15 ml MUCOUS MEM BID ALEXANDRA Last Admin: 08/30/17 08:06 Dose: 15 ml Heparin Sodium/Dextrose 25,000 (unit/ IV Solution) 500 mls @ 13.49 mls/hr IV .Q24H ALEXANDRA; 12 UNITS/KG/HR PRN Reason: Protocol Last Admin: 08/30/17 06:26 Dose: 12 units/kg/hr, 13.49 mls/hr Meropenem 500 mg/ Sodium (Chloride) 50 mls @ 100 mls/hr IVPB Q24HR ALEXANDRA Last Admin: 08/30/17 08:07 Dose: 100 mls/hr Peritoneal Dialysis Solution (Delflex With 2.5% Dextrose (2,000 Ml)) 50 g in 2, 000 mls @ 0 mls/hr INTRAPERIT Q6HR ALEXANDRA; As Directed PRN Reason: Protocol Last Admin: 08/30/17 12:02 Dose: 2,000 mls/hr Norepinephrine Bitartrate (Levophed-0.9% Nacl 16 Mg/250ml Pmx) 16 mg in 250 mls @ 0 mls/hr IV .Q0M ALEXANDRA; Titrate PRN Reason: Protocol Last Titration: 08/30/17 12:22 Dose: 25 mcg/min, 23.438 mls/hr Propofol 1,000 mg/ IV Solution 100 mls @ 0 mls/hr IV .Q0M [facility]; Titrate PRN Reason: Protocol Last Admin: 08/30/17 14:37 Dose: 24.9 mcg/kg/min, 11.4 mls/hr Insulin Aspart (Novolog) 0 unit SQ Q6H [facility] PRN Reason: Protocol Last Admin: 08/30/17 12:02 Dose: 2 unit Levothyroxine Sodium (Synthroid Ivp) 100 mcg IV DAILY [facility] Last Admin: 08/30/17 08:06 Dose: 100 mcg Metoprolol Tartrate (Lopressor) 12.5 mg PO DAILY [facility] Last Admin: 08/30/17 11:10 Dose: 12.5 mg Midodrine (Proamatine) 5 mg PO AC-BID [facility] Last Admin: 08/30/17 16:38 Dose: 5 mg Miscellaneous Information (Pharmacy To Dose Iv Vancomycin) 1 each MISCELLANE DIRECTED PRN PRN Reason: Per Protocol Miscellaneous Information (Potassium Per Protocol) 1 each MISCELLANE DAILY PRN ; Protocol PRN Reason: Per Protocol Morphine Sulfate (Morphine Sulfate (Inj)) 2 mg IVP Q5M PRN PRN Reason: Chest Pain Last Admin: 08/29/17 22:38 Dose: 2 mg Nitroglycerin (Nitro-Bid Oint) 1 inch TOPICAL Q6HR [facility] Last Admin: 08/30/17 11:27 Dose: Not Given Pantoprazole Sodium (Protonix) 40 mg IVP DAILY [facility] Last Admin: 08/30/17 08:07 Dose: 40 mg Sevelamer Carbonate (Renvela) 800 mg PO TID-W/MEALS [facility] Last Admin: 08/30/17 16:37 Dose: 800 mg Home Medications Medication Instructions Recorded Confirmed Type Acetaminophen Tab [Tylenol Tab] 650 mg PO Q4-6H PRN 08/27/17 08/27/17 History Aspirin 81 mg PO DAILY 08/27/17 08/27/17 History Atorvastatin [Lipitor] 20 mg PO HS 08/27/17 08/27/17 History Calcium Acetate [Phoslo] 667 mg PO TID 08/27/17 08/27/17 History Clopidogrel [Plavix] 75 mg PO DAILY 08/27/17 08/27/17 History Docusate [Colace] 100 mg PO BID 08/27/17 08/27/17 History Fluticasone Nasal [place] [Flonase 1 spr EA NOSTRIL DAILY 08/27/17 08/27/17 History Nasal [place]] Folic Acid-Vit B Complex-Vit C 1 mg PO DAILY 08/27/17 08/27/17 History [Nephrocaps] HYDROcodone/APAP 5-325MG [[place] 1 tab PO Q6HR PRN 08/27/17 08/27/17 History 5-325] Levothyroxine Sodium [Levoxyl] 400 mcg PO [place] 08/27/17 08/27/17 History Levothyroxine Sodium [Synthroid] 200 mcg PO MOTUWETHFRSA 08/27/17 08/27/17 History Pantoprazole [Protonix] 40 mg PO BID 08/27/17 08/27/17 History Polyethylene Glycol 3350 [Miralax] 17 gm PO DAILY PRN 08/27/17 08/27/17 History Potassium Chloride [K-Tab ER] 20 meq PO DAILY 08/27/17 08/27/17 History Promethazine HCl 12.5 mg PO Q6H PRN 08/27/17 08/27/17 History Sertraline [Zoloft] 100 mg PO DAILY 08/27/17 08/27/17 History buPROPion HCL [Wellbutrin SR] 150 mg PO BID 08/27/17 08/27/17 History Allergies Allergy/AdvReac Type Severity Reaction Status Date / Time Penicillins Allergy Swelling Verified 08/27/17 07:48 Physical Exam Vitals: Vital Signs Temp Pulse Pulse Resp BP Pulse Ox 08/30/17 16:00 100.0 F H 95 22 96 08/30/17 15:28 101 H 22 08/30/17 15:25 96 22 08/30/17 15:15 100 22 08/30/17 15:00 99 18 95 08/30/17 14:00 102 H 22 93 L 08/30/17 13:00 100.2 F H 102 H 22 99 08/30/17 12:00 99.2 F 94 98 25 H 125/71 100 08/30/17 11:16 90 08/30/17 11:04 88 08/30/17 11:00 99.3 F 89 20 100 08/30/17 10:00 104 H 20 100 08/30/17 09:00 112 H 26 H 99 08/30/17 08:00 99.2 F 97 98 20 100 08/30/17 07:40 98 18 07:16 96 18 07:00 96 20 86/56 08/30/17 06:30 96 20 86/56 08/30/17 06:00 98.6 F 99 20 95/61 08/30/17 05:30 99 20 95/61 18 05:00 104 H 22 08/30/17 04:30 103 H 14 08/30/17 04:00 98.8 F 142 H 20 104/70 08/30/17 03:30 139 H 20 89/50 08/30/17 03:00 122 H 20 82/66 18 02:30 115 H 20 79/49 08/30/17 02:00 113 H 20 79/52 96 08/30/17 01:30 111 H 10 L 80/48 96 08/30/17 01:00 111 H 18 73/47 94 L 08/30/17 00:30 111 H 11 L 92 L 18 00:00 98.6 F 107 H 16 83/53 94 L 18 23:45 105 H 12 83/53 94 L 18 23:30 104 H 16 83/53 94 L 18 23:00 105 H 16 91/62 96 18 22:30 106 H 12 91/62 96 18 22:00 103 H 11 L 86/53 96 18 21:30 103 H 14 85/54 96 18 21:00 102 H 11 L 90/58 95 03/18 20:40 102 H 18 20:31 100 18 20:30 100 13 90/58 94 L 08/29/17 20:00 98.3 F 101 H 21 93/64 96 18 19:30 102 H 20 93/64 96 18 19:00 101 H 22 89/55 94 L 08/29/17 18:30 104 H 17 89/55 97 18 18:00 99.1 F 103 H 15 85/56 98 08/29/17 17:50 99.1 F 103 H 16 106/48 98 08/29/17 17:30 99.2 F 99 15 85/56 98 Intake and Output 08/30/17 08/30/17 08/30/17 06:59 14:59 22:59 Intake Total 477.968 804.368 10 Output Total 140 28 Balance 337.968 776.368 10 Intake: IV 125 240 10 Meropenem 500 mg In 50 Sodium Chloride 0.9% 50 ml @ 100 mls/hr IVPB Q24HR ALEXANDRA Rx#:[id number] Potassium Chloride 10 meq 100 In Water For Injection 1 100ml.bag @ 100 mls/hr IVPB Q1H ALEXANDRA Rx#: [id number] sodium chloride 0.9% 1, 125 90 10 000 ml KVO Intake, IV Titration 352.968 444.368 Amount EPINEPHrine 2 mg In 0 Dextrose 5% in Water 250 ml @ 2 MCG/MIN 15.12 mls/ hr IV .[id number] ALEXANDRA Rx#: [id number] Heparin Sodium,Porcine/ 343.545 D5w Pmx 25,000 unit In Dextrose/Water 1 500ml. bag @ 12 UNITS/KG/HR 13. 49 mls/hr IV .Q24H ALEXANDRA Rx #:[id number] Norepinephrin 16 mg-0.9% 9.423 94.368 Ns Pmx 16 mg In 250 ml @ Titrate IV .Q0M ALEXANDRA Rx#: [id number] Propofol 1,000 mg In 100.000 Empty Bag 1 bag @ Titrate IV .Q0M [facility] Rx#: [id number] Vancomycin 1,250 mg In 250 Sodium Chloride 0.9% 250 ml @ 125 mls/hr IVPB ONCE ONE Rx#:[id number] Other 120 Output: Urine 140 28 Other: Voiding Method Indwelling Catheter Indwelling Catheter Indwelling Catheter # Bowel Movements 0 0 Weight 74.9 kg 76.3 kg 76.3 kg ABP, PAP, CO, CI - Last 8 Hours Arterial Blood Pressure 88/55 Arterial Blood Pressure 108/60 Arterial Blood Pressure 111/62 Arterial Blood Pressure 118/67 Arterial Blood Pressure 112/65 Arterial Blood Pressure 89/52 Arterial Blood Pressure 107/62 67-year-old female who appears older than her stated age, is intubated sedated and mechanicallyventilated at this time HEENT: Anicteric conjunctiva are pink and moist nasal mucosa grossly intact without significant lesions, there is no thrush.poor dentition Neck: The neck is supple without significant lymphadenopathy or thyromegaly. Lungs: there is symmetrical air entry with expiratory wheezes that are scattered no herber bronchial sounds are heard Heart: irregular with audible S1 and S2 soft S4 no distinct murmur click or rub PMI was nondisplaced with urethral Abdomen: Positive bowel sounds soft nonrigid without palpable masses or organomegaly. Extremities: the right upper extremities shows evidence of the third finger distal mummification, similar has occurred third and fourth fingers to the left hand. The lower extremities are cool but not frankly cold no significant open ulcerations are seen been on the current vasopressor therapy the toes are dusky. Neuro: sedated and mechanically ventilated Results CBC & Chem 7: 08/30/17 04:00 08/30/17 04:00 Labs: Abnormal Lab Results - Last 24 Hours (Table) 08/29/17 08/29/17 08/30/17 Range/Units 19:01 19:56 02:11 WBC (3.8-10.6) k/uL RBC (3.80-5.40) m/uL Hgb (11.4-16.0) gm/dL Hct (34.0-46.0) % Neutrophils # (1.3-7.7) k/uL APTT (22.0-30.0) sec ABG pCO2 (35-45) mmHg ABG HCO3 (21-25) mmol/L Sodium (137-145) mmol/L Chloride (98-107) mmol/L Carbon Dioxide (22-30) mmol/L BUN (7-17) mg/dL Creatinine (0.52-1.04) mg/dL Glucose (74-99) mg/dL POC Glucose (mg/dL) 131 H 127 H 117 H (75-99) mg/dL Calcium (8.4-10.2) mg/dL Phosphorus (2.5-4.5) mg/dL Total Creatine Kinase (30-135) U/L CK-MB (CK-2) (0.0-2.4) ng/mL Troponin I (0.000-0.034) ng/mL 08/30/17 08/30/1708/30/18 Range/Units 03:44 04:00 04:00 WBC 21.1 H (3.8-10.6) k/uL RBC 3.18 L (3.80-5.40) m/uL Hgb 9.1 L (11.4-16.0) gm/dL Hct 28.9 L (34.0-46.0) % Neutrophils # 19.0 H (1.3-7.7) k/uL APTT (22.0-30.0) sec ABG pCO2 34 L (35-45) mmHg ABG HCO3 20 L (21-25) mmol/L Sodium 133 L (137-145) mmol/L Chloride 97 L (98-107) mmol/L Carbon Dioxide 18 L (22-30) mmol/L BUN 67 H (7-17) mg/dL Creatinine 4.60 H (0.52-1.04) mg/dL Glucose 193 H (74-99) mg/dL POC Glucose (mg/dL) (75-99) mg/dL Calcium 5.8 L* (8.4-10.2) mg/dL Phosphorus 7.9 H (2.5-4.5) mg/dL Total Creatine Kinase (30-135) U/L CK-MB (CK-2) (0.0-2.4) ng/mL Troponin I (0.000-0.034) ng/mL 08/30/17 08/30/17 08/30/17 Range/Units 04:00 05:25 07:03 WBC (3.8-10.6) k/uL RBC (3.80-5.40) m/uL Hgb (11.4-16.0) gm/dL Hct (34.0-46.0) % Neutrophils # (1.3-7.7) k/uL APTT 63.8 H (22.0-30.0) sec ABG pCO2 (35-45) mmHg ABG HCO3 (21-25) mmol/L Sodium (137-145) mmol/L Chloride (98-107) mmol/L Carbon Dioxide (22-30) mmol/L BUN (7-17) mg/dL Creatinine (0.52-1.04) mg/dL Glucose (74-99) mg/dL POC Glucose (mg/dL) 69 L (75-99) mg/dL Calcium (8.4-10.2) mg/dL Phosphorus (2.5-4.5) mg/dL Total Creatine Kinase 292 H (30-135) U/L CK-MB (CK-2) 9.5 H* (0.0-2.4) ng/mL Troponin I 9.540 H* (0.000-0.034) ng/mL 08/30/17 08/30/17 Range/Units 07:06 11:57 WBC (3.8-10.6) k/uL RBC (3.80-5.40) m/uL Hgb (11.4-16.0) gm/dL Hct (34.0-46.0) % Neutrophils # (1.3-7.7) k/uL APTT (22.0-30.0) sec ABG pCO2 (35-45) mmHg ABG HCO3 (21-25) mmol/L Sodium (137-145) mmol/L Chloride (98-107) mmol/L Carbon Dioxide (22-30) mmol/L BUN (7-17) mg/dL Creatinine (0.52-1.04) mg/dL Glucose (74-99) mg/dL POC Glucose (mg/dL) 200 H 179 H (75-99) mg/dL Calcium (8.4-10.2) mg/dL Phosphorus (2.5-4.5) mg/dL Total Creatine Kinase (30-135) U/L CK-MB (CK-2) (0.0-2.4) ng/mL Troponin I (0.000-0.034) ng/mL Microbiology - Last 24 Hours (Table) 08/30/17 03:57 Gram Stain - Preliminary Sputum Sputum Culture - Preliminary 08/27/17 11:00 Blood Culture - Preliminary Blood No Growth after 72 hours 08/27/17 23:20 Gram Stain - Final Sputum Sputum Culture - Final 08/27/17 14:10 Gram Stain - Preliminary Peritoneal Fluid Body Fluid Culture - Preliminary Group D Enterococcus Laboratory Results WBC 21.1 k/uL (3.8-10.6) H 08/30/17 04:00 RBC 3.18 m/uL (3.80-5.40) L 08/30/17 04:00 Hgb 9.1 gm/dL (11.4-16.0) L 08/30/17 04:00 Hct 28.9 % (34.0-46.0) L 08/30/17 04:00 MCV 91.0 fL (80.0-100.0) 08/30/17 04:00 MCH 28.5 pg (25.0-35.0) 08/30/17 04:00 MCHC 31.4 g/dL (31.0-37.0) 08/30/17 04:00 RDW 15.5 % (11.5-15.5) 08/30/17 04:00 Plt Count 412 k/uL (150-450) 08/30/17 04:00 Neutrophils % 90 % 08/30/17 04:00 Lymphocytes % 6 % 08/30/17 04:00 Monocytes % 3 % 08/30/17 04:00 Eosinophils % 0 % 08/30/17 04:00 Basophils % 0 % 08/30/17 04:00 Neutrophils # 19.0 k/uL (1.3-7.7) H 08/30/17 04:00 Lymphocytes # 1.2 k/uL (1.0-4.8) 08/30/17 04:00 Monocytes # 0.6 k/uL (0-1.0) 08/30/17 04:00 Eosinophils # 0.1 k/uL (0-0.7) 08/30/17 04:00 Basophils # 0.0 k/uL (0-0.2) 08/30/17 04:00 Hypochromasia Slight 08/27/17 10:35 Anisocytosis Slight 08/28/17 04:00 PT 13.7 sec (9.0-12.0) H 08/28/17 04:00 INR 1.5 (<1.2) H 08/28/17 04:00 APTT 63.8 sec (22.0-30.0) H 08/30/17 05:25 D-Dimer 5.03 mg/L FEU (<0.60) H 08/27/17 04:44 Sample Site MARYJANE 08/30/17 03:44 ABG pH 7.38 (7.35-7.45) 08/30/17 03:44 ABG pCO2 34 mmHg (35-45) L 08/30/17 03:44 ABG pO2 87 mmHg (83-108) 08/30/17 03:44 ABG HCO3 20 mmol/L (21-25) L 08/30/17 03:44 ABG Total CO2 21 mmol/L (19-24) 08/30/17 03:44 ABG O2 Saturation 94.8 % (94-97) 08/30/17 03:44 ABG Base Excess -5.5 mmol/L 08/30/17 03:44 Rhett Test Yes 08/30/17 03:44 ABG Lactic Acid 4.2 mmol/L (0.5-1.6) H* 08/27/17 16:01 FiO2 100 % 08/30/17 03:44 Sodium 133 mmol/L (137-145) L 08/30/17 04:00 Potassium 3.6 mmol/L (3.5-5.1) 08/30/17 04:00 Chloride 97 mmol/L (98-107) L 08/30/17 04:00 Carbon Dioxide 18 mmol/L (22-30) L 08/30/17 04:00 Anion Gap 18 mmol/L 08/30/17 04:00 BUN 67 mg/dL (7-17) H 08/30/17 04:00 Creatinine 4.60 mg/dL (0.52-1.04) H 08/30/17 04:00 Est GFR (CKD-EPI)AfAm 11 (>60 ml/min/1.73 sqM) 08/30/17 04:00 Est GFR (CKD-EPI)NonAf 9 (>60 ml/min/1.73 sqM) 08/30/17 04:00 Glucose 193 mg/dL (74-99) H 08/30/17 04:00 POC Glucose (mg/dL) 179 mg/dL (75-99) H 08/30/17 11:57 POC Glu [employer] Operator ID Claudio Rosa 08/30/17 11:[address] Glu mg/dL 103 08/27/17 10:35 Hemoglobin A1c 5.2 % (4.0-6.0) 08/27/17 10:35 Lactic Ac Sepsis Rflx Y 08/27/17 11:19 Plasma Lactic Acid [place] mmol/L (0.7-2.0) 08/27/17 10:35 Calcium 5.8 mg/dL (8.4-10.2) L* 08/30/17 04:00 Phosphorus 7.9 mg/dL (2.5-4.5) H 08/30/17 04:00 Magnesium 1.8 mg/dL (1.6-2.3) 08/30/17 04:00 Total Bilirubin 0.4 mg/dL (0.2-1.3) 08/27/17 04:44 AST 35 U/L (14-36) 08/27/17 04:44 ALT 23 U/L (9-52) 08/27/17 04:44 Alkaline Phosphatase 66 U/L (38-126) 08/27/17 04:44 Total Creatine Kinase 292 U/L (30-135) H 08/30/17 04:00 CK-MB (CK-2) 9.5 ng/mL (0.0-2.4) H* 08/30/17 04:00 CK-MB (CK-2) Rel Index 3.3 08/30/17 04:00 Troponin I 9.540 ng/mL (0.000-0.034) H* 08/30/17 04:00 Total Protein 4.8 g/dL (6.3-8.2) L 08/27/17 04:44 Albumin 2.3 g/dL (3.5-5.0) L 08/27/17 04:44 Triglycerides 62 mg/dL (<150) 08/28/17 04:00 Cholesterol 104 mg/dL (<200) 08/28/17 04:00 LDL Cholesterol, Calc 41 mg/dL (0-99) 08/28/17 04:00 HDL Cholesterol 51 mg/dL (40-60) 08/28/17 04:00 TSH >100.000 mIU/L (0.465-4.680) H 08/27/17 10:35 Free T4 0.74 ng/dL (0.78-2.19) L 08/27/17 10:35 Urine Color Yellow 08/27/17 20:00 Urine Appearance Cloudy (Clear) H 08/27/17 20:00 Urine pH 5.0 (5.0-8.0) 08/27/17 20:00 Ur Specific [place] 1.020 (1.001-1.035) 08/27/17 20:00 Urine Protein 1+ (Negative) H 08/27/17 20:00 Urine Glucose (UA) 3+ (Negative) H 08/27/17 20:00 Urine Ketones Negative (Negative) 08/27/17 20:00 Urine Blood Small (Negative) H 08/27/17 20:00 Urine Nitrite Negative (Negative) 08/27/17 20:00 Urine Bilirubin Negative (Negative) 08/27/17 20:00 Urine Urobilinogen <2.0 mg/dL (<2.0) 08/27/17 20:00 Ur Leukocyte Esterase Small (Negative) H 08/27/17 20:00 Urine RBC 1 /hpf (0-5) 08/27/17 20:00 Urine WBC 12 /hpf (0-5) H 08/27/17 20:00 Ur Squamous Epith Cells 11 /hpf (0-4) H 08/27/17 20:00 Amorphous Sediment Few /hpf (None) H 08/27/17 20:00 Hyaline Casts 3 /lpf (0-2) H 08/27/17 20:00 Urine Mucus Rare /hpf (None) H 08/27/17 20:00 Fluid Source Peritoneal 08/29/17 14:09 Fluid Color Colorless 08/29/17 14:09 Fluid Appearance Clear 08/29/17 14:09 Fluid RBC 3 /uL 08/29/17 14:09 Fluid Nucleated Cells 35 /uL 08/29/17 14:09 Fluid Polynuclear WBCs 81 % 08/29/17 14:09 Fluid Mononuclear WBCs 19 % 08/29/17 14:09 Random Vancomycin 12.5 ug/mL 08/30/17 04:00 Microbiology 08/30/17 03:57 Sputum Gram Stain - Preliminary 08/30/17 03:57 Sputum Sputum Culture - Preliminary 08/27/17 11:00 Blood Blood Culture - Preliminary No Growth after 72 hours 08/27/17 23:20 Sputum Gram Stain - Final 08/27/17 23:20 Sputum Sputum Culture - Final 08/27/17 14:10 Peritoneal Fluid Gram Stain - Preliminary 08/27/17 14:10 Peritoneal Fluid Body Fluid Culture - Preliminary Group D Enterococcus 08/27/17 20:00 Urine,Catheterized Urine Culture - Final Assessment and Plan (1) Respiratory failure Current Visit: Yes Status: Acute Code(s): J96.90 - RESPIRATORY FAILURE, UNSP , UNSP W HYPOXIA OR HYPERCAPNIA SNOMED Code(s): 545986322 (2) Renal failure Current Visit: Yes Status: Acute Code(s): N19 - UNSPECIFIED KIDNEY FAILURE SNOMED Code(s): 87104867 (3) Bacterial infection associated with peritoneal dialysis catheter Narrative/Plan: 67-year-old female who is in the intensive care unit she is intubated sedated and mechanically ventilated due to her significant sepsis and hypotension at this time. There is concerns that she has an enterococcal peritonitis related to her CAPD. She's been evaluated by nephrology as well as surgery. At this time antimicrobial therapy has been initiated with vancomycin. Potentially may receive vancomycin in the dialysate if nephrology believes it is a potential. Follow-up sample should be obtained to ensure that there some improvement. there is discussion about the potential for hemodialysis but she is too hypotensive at this point in time. there is no data to suggest that she has a history of VRE will continue vancomycin therapy for now. Cultures for further direct antibiotic therapy. She is receiving meropenem also for now until further data is available. significant leukocytosis occurring directly related to her peritonitis. Current Visit: Yes Status: Acute Code(s): T85.71XA - INFECT/INFLM REACTION DUE TO PERITON DIALYSIS CATHETER, INIT; A49.9 - BACTERIAL INFECTION, UNSPECIFIED SNOMED Code(s): 003816186
[2017-08-30 18:11] LABS: Glucose,Whole Blood 136 mg/dL (75-99)
[2017-08-30 23:35] LABS: Glucose,Whole Blood 145 mg/dL (75-99)
[2017-08-31] MEDS: NITROGLYCERIN OINT 1 INCH/GM PACKET TOPICAL SCH ×5 (00:02→23:50)
[2017-08-31 04:29] LABS: Basophils # (A) 0.1 k/uL (0-0.2); Basophils % (A) 0 %; Eosinophils # (A) 0.5 k/uL (0-0.7); Eosinophils % (A) 2 %; HCT 29.2 % (34.0-46.0); HGB 9.3 gm/dL (11.4-16.0); Lymphocytes % (A) 13 %; MCH 28.7 pg (25.0-35.0); MCV 89.7 fL (80.0-100.0); Mean Platelet Volume 7.4; Monocytes # (A) 0.6 k/uL (0-1.0); Monocytes % (A) 2 %; Neutrophils # (A) 19.6 k/uL (1.3-7.7); Neutrophils % (A) 82 %; Platelet Count 392 k/uL (150-450); RBC 3.26 m/uL (3.80-5.40); RDW 14.9 % (11.5-15.5); WBC 23.8 k/uL (3.8-10.6)
[2017-08-31] MEDS: PROPOFOL 1,000 MG in EMPTY BAG 1 BAG IV SCH ×2 (04:39→21:42)
[2017-08-31 05:36] LABS: Magnesium 1.8 mg/dL (1.6-2.3); Potassium 4.2 mmol/L (3.5-5.1)
[2017-08-31 05:42] LABS: Calcium 6.4 mg/dL (8.4-10.2)
[2017-08-31 05:43] LABS: Phosphorus 8.1 mg/dL (2.5-4.5)
[2017-08-31 05:54] LABS: Glucose,Whole Blood 118 mg/dL (75-99)
[2017-08-31] MEDS: INSULIN ASPART 100 UNIT/ML 1 ML 10 ML VIAL SQ SCH ×4 (05:58→23:56)
[2017-08-31] MEDS: DIALYSIS (PERIT 2.5%) 2,000 ML 50 G/2,000 ML BAG INTRAPERIT SCH ×3 (05:59→19:59)
[2017-08-31 07:43] LABS: ABG Base Excess -0.2 mmol/L; ABG HCO3 23 mmol/L (21-25); ABG Oxygen Saturation 98.7 % (94-97); ABG PCO2 29 mmHg (35-45); ABG PH 7.51 (7.35-7.45); ABG PO2 205 mmHg (83-108); ABG TCO2 24 mmol/L (19-24)
[2017-08-31] MEDS: IPRATROPIUM-ALBUTEROL 3 ML NEB INHALATION SCH ×4 (08:12→19:10)
[2017-08-31] MEDS: MIDODRINE 5 MG TAB PO SCH ×2 (08:58→18:55)
[2017-08-31] MEDS: SEVELAMER 800 MG TAB PO SCH ×3 (08:58→18:55)
[2017-08-31] MEDS: ASPIRIN 325 MG TAB PO SCH (09:03)
[2017-08-31] MEDS: LEVOTHYROXINE IVP 100 MCG/5 ML VIAL IV SCH (09:03)
[2017-08-31] MEDS: CHLORHEXIDINE GLUCONATE 15 ML CUP MUCOUS MEM SCH ×2 (09:03→20:59)
[2017-08-31] MEDS: METOPROLOL TARTRATE 12.5 MG TAB PO SCH (09:04)
[2017-08-31] MEDS: MEROPENEM 500 MG in SODIUM CHLORIDE 0.9% 50 ML IVPB SCH (09:04)
[2017-08-31] MEDS: PANTOPRAZOLE 40 MG/10 ML VIAL IVP SCH (09:04)
--- NOTE | 2017-08-31 09:36 | PN ---
PROGRESS NOTE Mrs. Ballard is on a vent. She has a [id number] SD, ischemic cardiomyopathy, advanced renal failure on peritoneal dialysis. From a cardiac standpoint, I have no aggressive recommendations other than continued supportive care and patient will probably benefit from hemodialysis to take more fluid off. Prognosis remains guarded. Blood pressure is more stable today. She is still on a small dose of Levophed. Weaning efforts have been halted in view of her probably volume status. We will continue current medical regimen. Supportive care. Blood pressure is 108/70, pulse rate is 80 per minute. S1, S2 heard normally, short systolic murmur noted. Lungs reveal diminished air entry. Abdomen is soft. Rest of physical examination is unchanged. Patient is growing some enterococcus from her fluid during peritoneal dialysis. Prognosis remains guarded. No aggressive intervention from a cardiac standpoint. Hemodialysis may help. MMODL / IJN: [id number] /
--- NOTE | 2017-08-31 09:59 | XR ---
EXAMINATION TYPE: XR chest 1V portable DATE OF EXAM: 08/31/2017 COMPARISON: 08/30/2017 HISTORY: Tube placed TECHNIQUE: Single frontal view of the chest is obtained. FINDINGS: Bilateral consolidation and pleural effusion. Could not exclude a small amount of subcutan eous emphysema along the right lateral chest wall. Interstitial pattern seen. ET tube 3.4 cm above ca halley and NG tube with the side hole near the GE junction. No sizable pneumothorax. Arthropathy of the shoulders noted. IMPRESSION: 1. Bilateral airspace disease and pleural effusion is stable correlate for CHF versus pneumonia. 2. NG tube could be advanced a couple of centimeters correlate clinically.
--- NOTE | 2017-08-31 11:18 | P.PN ---
Subjective Progress Note Date: 08/31/17 Principal diagnosis: Acute hypoxic respiratory failure secondary to congestive heart failure, systolic in nature, abdominal sepsis. Secondary to group D enterococcus. This is a 67-year-old female patient with multiple medical problems and comorbidities who presented to ED with acute respiratory distress, intubated and placed on a mechanical ventilator and then moved to the intensive care unit. The patient has taken all of her care at [facility]. She has chronic renal failure and she currently has end stage renal disease and she is seeking kidney transportation the patient has been evaluated at [facility] for potential kidney transplant the daughter being her daughter. This patient lives in [place] and she recently moved in with her daughter living in [facility], and for that reason during this current episode the patient was brought in to our hospital. All of the information was obtained is from the daughters at the bedside This patient has developed renal failure, probably related to previous history of diabetes mellitus. She was started on peritoneal dialysis approximately year ago and she does nighttime cycler continuous with a 1.5 fluid exchange. This was started on high-dose in November 2016. Hemodialysis was considered and the patient was about to have a left upper extremity AV fistula. The fistula itself got clotted and the patient developed also ulceration in her digits bilaterally and for that reason this was not pursued. Currently the patient is gangrenous necrotic digits of the middle fingers of the left and the fourth finger on the right, affecting the tips. This was investigated at length at [facility]. The patient underwent a CT angios of the entire chest abdomen pelvis and extremities and she was found to have no significant subclavian axillary or brachial artery narrowing. She was found to have diffuse atherosclerosis with calcification of the bilateral radial and ulnar arteries and mild to moderate narrowing in the areas affecting the wrist. Atherosclerotic changes were also seen in the infrarenal abdominal aortic area which was estimated to be severe. Bilateral iliofemoral atherosclerotic changes were also seen. The patient was told to have small vessel disease and based on the reported history there was no evidence of any embolic phenomena or vasculitis The patient is known to have coronary artery disease and she has undergone pleased bypass surgery. She was morbidly obese and she was diabetic. She has undergone gastric bypass surgery more than 6 years ago and she has lost considerable amount of weight and during this time the patient was taken off as soon as she improved in terms of her blood sugar control and she started having episodes of hypoglycemia. Currently she is off anticoagulation. She also has chronic atrial fibrillation, chronic renal failure and currently she is on peritoneal dialysis, she hasn't complications of hyperkalemia, and she has history of hypertension, hyperlipidemia, hypothyroidism, peripheral vascular disease and previous history of coronary artery disease and myocardial infarction. The patient was at her daughter's home where she was feeling weak. In the yam curer hours the patient was found by the daughter collapsed in the bathroom. No reported chest pain or palpitations. No focal neurological deficit. The patient was lethargic and she was arousable and she was able to speak. She was moving all 4 extremities according to the history. No fever. No chills. No cough or sputum production. No nausea, vomiting or abdominal pain. The PD catheter was apparently functional. No skin rashes. Necrotic digits were seen bilaterally and these are dry gangrene. In the ED, the patient was found to be hypotensive postintubation. The patient was started on IV fluids and pressors. The patient was started on epinephrine infusion. She was intubated and blood gas showed severe metabolic acidosis. The chest x-ray shows cardiomegaly and pulmonary vessel congestion. ET tube was in a good location. No consolidation . Meanwhile, the patient's white cell count was at 14.2. The patient had a potassium level of 6.5 was being treated in the emergency department with a combination of Kayexalate, D50 and insulin and bicarb and the patient was severely acidotic with anion gap metabolic acidosis with a gap of 26 and a bicarb level of 5, creatinine of 9.4, and a troponin level of 1.2. EKG is not showing any acute ischemic abnormalities and is showing a normal sinus rhythm with a left bundle-branch block pattern. Subsequent potassium level was 7.1. Waldemar saw the patient in the ICU and we're going to start peritoneal dialysis. Meanwhile the patient is being resuscitated IV fluids. We'll start empiric antibiotic coverage. We'll monitor cardiac enzymes and obtain an echocardiogram. The computed tomography scan of the brain and C-spine showed no evidence of acute fracture and there was no evidence of any acute intracranial hemorrhage. On 08/28/2018 I'm seeing this patient for a follow-up. This is a very complicated case with present it with severe metabolic acidosis, respiratory failure, hyperkalemia and hypotension. The patient is being seen today in a follow-up. The patient remains sedated on a mechanical ventilator. This morning, she doesn't assist-control at the rate of 22, tidal volume 600, FiO2 of 50% and a PEEP of 5. Blood gases showed a component of acute respiratory alkalosis and the pH was at 7.47 with a pCO2 of 27 and pO2 1:30. Based on that , I dropped the tidal volume down to 500 by mouth I also drop the FiO2 down to 40%. Chest x-ray still showing a component of pulmonary vessel congestion and small bilateral pleural effusion. CT angios the chest was done yesterday and showed cardiomegaly and bilateral pleural effusion and pulmonary vascular congestion. He was no evidence of any pulmonary embolism. The patient is only on few mics of the low-fat for hemodynamic support. Troponin peaked at 7 and the patient is still on IV heparin and aspirin.. The patient had an echocardiogram yesterday that showed severe impaired LV function with an ejection fraction of 25-30%. In addition, there was segmental wall motion abnormalities involving the inferior wall and anteroseptal wall septum. The right ventricular pressure was estimated to be 42 mmHg. There was no significant valvular abnormalities. Left atrium was dilated. There was mild aortic stenosis. The patient had cultures sent and the blood culture and the abdominal fluid culture came back all negative. She remains on a combination of vancomycin and meropenem. Afebrile. White cell count is not elevated. Infected has dropped from 17 down to 11.9. Potassium level has also dropped down to 3.7 and the patient has a bicarb level which is up to 17. Calcium level is at 6.4. Phosphorus level is at 8.1. The patient was receiving abdominal PD 4 times a day with a 1.5% solution. Furthermore, the patient was noted to be somewhat hypothyroid with a TSH of 101 100 and a free T4 of 0.74. She was placed on 100 mg of IV Synthroid on a daily basis. Her hypothermia has also recovered. She is on tube feeds for now. Family is at the bedside. On 08/29/2017, I'm seeing this patient for a follow-up. The patient remains intubated on mechanical ventilator. This morning, she did assist-control mode at a rate of 22, tidal volume 500, FiO2 of 40% and a PEEP of 5. The blood gases still showing a component of respiratory alkalosis with a pH of 7.49 and a pCO2 of 32 and pO2 97. Based on this, I dropped the tidal volume down to 450. The patient will be given a sedation holiday again and we'll check weaning parameters and assess his readiness to wean. Upon yesterday's sedation holiday, the patient woke up last and she was able to follow some simple commands. Hemodynamically, the patient is still requiring 2 mics of epinephrine for blood pressure control. The patient is undergoing peritoneal dialysis with several exchanges on a daily basis with her 2.5% solution. The patient has no fever. No chills. Cultures of been negative. She was covered with a combination of Merrem and vancomycin. White cell count is at 17.4. The serum bicarb is up to 21 and there is no hyperkalemia. No other significant abnormalities otherwise for now. Patient was reevaluated today on 08/30/2017, remains on mechanical ventilation, intubated, sedated, remains on relatively high FiO2 100% which I cut down to 70% , and PEEP is at 8. Patient has abnormal chest x-ray showing interstitial edema , I believe the patient has fluid overload although the possibility of noncardiogenic pulmonary edema is not entirely ruled out, but considering the patient's LV dysfunction and considering she has an EF of 25%, this is most likely cardiogenic pulmonary edema in nature. Patient is not making much urine , she is still under peritoneal dialysis, and I believe we are not able to remove significant amount of fluids to improve her pulmonary status. Patient may eventually require hemodialysis. However she is still on a small dose of levo fed, may be able to cut it down and eventually arrange for hemodialysis. Labs were reviewed WBC count is 21.1 hemoglobin is 9.1 ABG showed a pO2 of 87 pCO2 of 34 pH of 7.38. Basic metabolic profile was reviewed continues to have an iron gap of 18 BUN is 67 creatinine 4.60. Chest x-ray as noted above endotracheal tube is intact and in the proper position. Chest x-ray again is consistent with pulmonary edema. Patient was reevaluated today on 08/31/2017, remains on mechanical ventilation, her ventilator settings are tidal volume of 450, assist control rate of 20 FiO2 is 50%, and PEEP is now at 5. Remains on levo fed at 7 mcg/m. Chest x-ray continues to show interstitial edema, and pleural effusions, slight improvement compared to yesterday's chest x-ray. ABG seems to be a lot better today, pO2 was 205 pCO2 29 pH of 7.51. BUN is 65 creatinine 4.29. Electrolytes otherwise are relatively unremarkable. Bicarb is 22. Patient remains on peritoneal dialysis, urine output is less than 10 mL per hour. Final microbiology report is pending, peritoneal fluid was positive for group D enterococcus. Patient remains on vancomycin and Merrem. Changes may be made once we have a final report on the cultures. Patient remains on propofol drip, not quite ready for any weaning trials. Today I will initiate enteral nutrition. Objective - Vital Signs Vital signs: Vital Signs Temp 99.0 F 08/31/17 08:00 Pulse 84 08/31/17 11:00 Resp 19 08/31/17 11:00 BP 97/52 08/31/17 06:00 Pulse Ox 100 08/31/17 11:00 Intake & Output 08/30/17 08/31/17 08/31/17 18:59 06:59 18:59 Intake Total 834.368 854.861 80 Output Total 38 160 25 Balance 796.368 694.861 55 Weight 76.3 kg 76.2 kg 76.2 kg Intake: IV 270 130 80 Meropenem 500 mg In 50 50 Sodium Chloride 0.9% 50 ml @ 100 mls/hr IVPB Q24HR ALEXANDRA Rx#:[id number] Potassium Chloride 10 meq 100 In Water For Injection 1 100ml.bag @ 100 mls/hr IVPB Q1H ALEXANDRA Rx#: [id number] sodium chloride 0.9% 1, 120 130 30 000 ml KVO Intake, IV Titration 444.368 724.861 Amount Heparin Sodium,Porcine/ 306.223 D5w Pmx 25,000 unit In Dextrose/Water 1 500ml. bag @ 12 UNITS/KG/HR 13. 49 mls/hr IV .Q24H ALEXANDRA Rx #:[id number] Norepinephrin 16 mg-0.9% 94.368 241.901 Ns Pmx 16 mg In 250 ml @ Titrate IV .Q0M ALEXANDRA Rx#: [id number] Propofol 1,000 mg In 100.000 176.737 Empty Bag 1 bag @ Titrate IV .Q0M ALEXANDRA Rx#: [id number] Vancomycin 1,250 mg In 250 Sodium Chloride 0.9% 250 ml @ 125 mls/hr IVPB ONCE ONE Rx#:[id number] Other 120 Output: Urine 38 160 25 Other: Voiding Method Indwelling Catheter Indwelling Catheter # Bowel Movements 0 1 ABP, PAP, CO, CI - Last Documented Arterial Blood Pressure 102/52 - Exam Appearance the patient is intubated, sedated, on mechanical ventilation. Head exam was generally normal. There was no scleral icterus or corneal arcus. Mucous membranes were moist. The patient has an orogastric and orotracheal tube are both in place and secured. Neck was supple and without jugular venous distension, thyromegaly, or carotid bruits. Carotids were easily palpable bilaterally. There was no adenopathy. Lungs sounds are diminished bilaterally along with some scattered rhonchi and bilateral crackles in lung bases. No wheezing. ET tube is in a good location. Heart sounds are regular, positive S1-S2, no significant murmurs appreciated. Abdominal exam revealed normal bowel sounds. The abdomen was soft, non-tender, and without masses, organomegaly, or appreciable enlargement of the abdominal aorta. The patient has a PD catheter which is in place and there is no direct tenderness or rebound tensile guarding. Extremities revealed no edema. Pulses in lower extremities are markedly diminished. The patient has necrotic digits at the tips of the digits involving the third mid finger on the left and the fourth finger on the right. There is evidence of dry gangrene. No evidence of any wound infection. The area is pretty much black and necrotic. No lower extremities edema. No cyanosis. Neurologic the patient is sedated. Remains on propofol, arousable with deep painful stimuli. - Labs CBC & Chem 7: 08/31/17 04:10 08/31/17 04:10 Labs: Abnormal Lab Results - Last 24 Hours (Table) 08/30/17 08/30/17 08/30/17 Range/Units 11:57 18:10 23:33 WBC (3.8-10.6) k/uL RBC (3.80-5.40) m/uL Hgb (11.4-16.0) gm/dL Hct (34.0-46.0) % Neutrophils # (1.3-7.7) k/uL APTT (22.0-30.0) sec ABG pH (7.35-7.45) ABG pCO2 (35-45) mmHg ABG pO2 (83-108) mmHg ABG O2 Saturation (94-97) % Sodium (137-145) mmol/L Chloride (98-107) mmol/L BUN (7-17) mg/dL Creatinine (0.52-1.04) mg/dL Glucose (74-99) mg/dL POC Glucose (mg/dL) 179 H 136 H 145 H (75-99) mg/dL Calcium (8.4-10.2) mg/dL Phosphorus (2.5-4.5) mg/dL 08/31/17 08/31/17 08/31/17 Range/Units 04:10 04:10 04:10 WBC 23.8 H (3.8-10.6) k/uL RBC 3.26 L (3.80-5.40) m/uL Hgb 9.3 L (11.4-16.0) gm/dL Hct 29.2 L (34.0-46.0) % Neutrophils # 19.6 H (1.3-7.7) k/uL APTT 91.6 H (22.0-30.0) sec ABG pH (7.35-7.45) ABG pCO2 (35-45) mmHg ABG pO2 (83-108) mmHg ABG O2 Saturation (94-97) % Sodium 130 L (137-145) mmol/L Chloride 96 L (98-107) mmol/L BUN 65 H (7-17) mg/dL Creatinine 4.29 H (0.52-1.04) mg/dL Glucose 143 H (74-99) mg/dL POC Glucose (mg/dL) (75-99) mg/dL Calcium 6.4 L* (8.4-10.2) mg/dL Phosphorus 8.1 H* (2.5-4.5) mg/dL 08/31/17 08/31/17 Range/Units 05:52 07:42 WBC (3.8-10.6) k/uL RBC (3.80-5.40) m/uL Hgb (11.4-16.0) gm/dL Hct (34.0-46.0) % Neutrophils # (1.3-7.7) k/uL APTT (22.0-30.0) sec ABG pH 7.51 H (7.35-7.45) ABG pCO2 29 L (35-45) mmHg ABG pO2 205 H (83-108) mmHg ABG O2 Saturation 98.7 H (94-97) % Sodium (137-145) mmol/L Chloride (98-107) mmol/L BUN (7-17) mg/dL Creatinine (0.52-1.04) mg/dL Glucose (74-99) mg/dL POC Glucose (mg/dL) 118 H (75-99) mg/dL Calcium (8.4-10.2) mg/dL Phosphorus (2.5-4.5) mg/dL Microbiology - Last 24 Hours (Table) 08/30/17 03:57 Gram Stain - Preliminary Sputum Sputum Culture - Preliminary 08/27/17 11:00 Blood Culture - Preliminary Blood No Growth after 72 hours 08/27/17 23:20 Gram Stain - Final Sputum Sputum Culture - Final Assessment and Plan Assessment: 1 acute hypoxic respiratory failure, multifactorial, The patient has a component of fluid overload and pulmonary vessel congestion small bilateral pleural effusion. The severe metabolic acidosis that contributed to respiratory failure has subsided. 2 acute hypotension , currently on 7 mics of norepinephrine for blood pressure support. The patient was found to have cardiomyopathy with severe impairment of the LV function with an ejection fraction of 25% in addition to an acute non- ST segment elevation myocardial infarction. 3 acute non-STEMI AL troponin peaked at 7, still on a combination of aspirin and IV heparin 4 coronary artery disease with previous coronary artery bypass surgery 5 End stage renal disease on hemodialysis via peritoneal dialysis. The patient has been on PD since November 2016. 6 acute hyperkalemia secondary to severe metabolic acidosis, resolved 7 severe anion gap metabolic acidosis, concern for lactic acidosis secondary to sepsis/hypotension, recovered 8 history of obesity status post gastric bypass surgery 9 diabetes mellitus recovered following bariatric surgery and the patient is currently on no diabetic medications 10 hypertension, history of 11 hypothyroidism, chemically still hypothyroid with a TSH of more than 100 and a free T4 of 0.74 and the patient will be kept on IV Synthroid. 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 15 seeking kidney transplantation to [facility] 16 chronic anemia, normocytic 17 hypoproteinemia and hypoalbuminemia 18 hypothermia, recovered 19 severe peripheral vascular disease 20 acute abdominal sepsis is not entirely ruled out, the peritoneal fluid is positive for group D enterococcus, patient is presently on vancomycin and Merrem , infectious disease consultation was initiated. Recommendation: Continue all present meds, continue mechanical ventilation, cut down the FiO2 as tolerated, patient is presently on 50% FiO2, and PEEP of 5. Noted some improvement on the chest x-ray, noted improvement in the ABG, not quite ready for any weaning trials, may eventually require hemodialysis. Prognosis remains poor and guarded, discussed her condition with daughter at bedside. Critical care time is 40 minutes. Time with Patient: Greater than 30
[2017-08-31] MEDS: HEPARIN SODIUM,PORCINE/D5W PMX 25,000 UNIT in DEXTROSE/WATER 1 500ML.BAG IV SCH (11:54)
[2017-08-31 12:00] LABS: Glucose,Whole Blood 138 mg/dL (75-99)
[2017-08-31] MEDS: DIALYSIS (PERIT 4.25%) 2000 ML 85 G/2,000 ML BAG INTRAPERIT SCH ×2 (16:39→23:56)
--- NOTE | 2017-08-31 16:40 | P.PN ---
Subjective Progress Note Date: 08/31/17 Progress note being dictated for Dr. Barrett 65-year-old the being treated for acute respiratory failure secondary to sepsis source unclear possibly lower limb ulcerations or paratonia him. Patient remains intubated patient is presently on 40% FiO2 PEEP of 5 and tidal volume of 500 continues to have metabolic acidosis which improved compared to yesterday. Patient is undergoing peritoneal dialysis remains on epinephrine, propofol drip, IV heparin for possible non-ST elevation myocardial infarction, on antibiotics meropenem and vancomycin with the so for negative cultures, very minimal urine output, hypotension improved, possibility of a superimposed cardiac sharp with bilateral pleural effusions 08/29/2017 Patient is off sedation undergoing weaning trials, on 1 g of epinephrine. Patient is awake and arousable intubated on BiPAP through ventilator 08/30/17 reintubated last night with FiO2 at 70%/+8 of PEEP. Chest x-ray reporting increasing lung opacity's, worsening edema and or infiltrates. Maintained on DIprova, heparin and Levophed drips. Troponin up to 9.5. Minimal urine output. Peritoneal dialysis cultures reporting enterococcus. Potential hemodialysis being discussed. Telemetry sinus rhythm. 08/31/17 remains vent dependent. CXR and ABGs improving. FiO2 decreased to 50% and PEEP decreased down to 5%. No weaning trials, yet. Tube feedings being initiated. Bicarb 22. PD changed to every 4 hours with solution adjusted as per nephrology. Levophed down to 7 mics. Maintained on Merrem and vancomycin, peritoneal cultures positive for enterococcus D, final results pending. Objective - Vital Signs Vital signs: Vital Signs Temp 99.0 F 08/31/17 08:00 Pulse 84 08/31/17 11:00 Resp 19 08/31/17 11:00 BP 97/52 08/31/17 06:00 Pulse Ox 100 08/31/17 11:00 Intake & Output 08/30/17 08/31/17 08/31/17 18:59 06:59 18:59 Intake Total 834.368 854.861 90 Output Total 38 160 35 Balance 796.368 694.861 55 Weight 76.3 kg 76.2 kg 76.2 kg Intake: IV 270 130 90 Meropenem 500 mg In 50 50 Sodium Chloride 0.9% 50 ml @ 100 mls/hr IVPB Q24HR [facility] Rx#:[id number] Potassium Chloride 10 meq 100 In Water For Injection 1 100ml.bag @ 100 mls/hr IVPB Q1H [facility] Rx#: [id number] sodium chloride 0.9% 1, 120 130 40 000 ml KVO Intake, IV Titration 444.368 724.861 Amount Heparin Sodium,Porcine/ 306.223 D5w Pmx 25,000 unit In Dextrose/Water 1 500ml. bag @ 12 UNITS/KG/HR 13. 49 mls/hr IV .Q24H [facility] Rx #:[id number] Norepinephrin 16 mg-0.9% 94.368 241.901 Ns Pmx 16 mg In 250 ml @ Titrate IV .Q0M [facility] Rx#: [id number] Propofol 1,000 mg In 100.000 176.737 Empty Bag 1 bag @ Titrate IV .Q0M [facility] Rx#: [id number] Vancomycin 1,250 mg In 250 Sodium Chloride 0.9% 250 ml @ 125 mls/hr IVPB ONCE ONE Rx#:[id number] Other 120 Output: Urine 38 160 35 Other: Voiding Method Indwelling Catheter Indwelling Catheter # Bowel Movements 0 1 ABP, PAP, CO, CI - Last Documented Arterial Blood Pressure 102/52 - Exam GENERAL: Intubated and sedated on Diprovan HEENT: Pupils are round and equally reacting to light. EOMI. No scleral icterus. No conjunctival pallor. Normocephalic, atraumatic. No pharyngeal erythema. No thyromegaly. CARDIOVASCULAR: S1 and S2 present. No murmurs, rubs, or gallops. Tachycardic PULMONARY: Good air entry treatment with mechanical ventilator sounds and bibasilar crackles are appreciated ABDOMEN: Soft, nontender, nondistended, normoactive bowel sounds. No palpable organomegaly. PD catheter present. MUSCULOSKELETAL: No joint swelling or deformity. EXTREMITIES: Multiple ulcerations in bilateral lower limbs and wounds please refer to nursing documentation for further details, markedly diminished bilateral dorsalis pedis pulses. Toes of bilateral feet dark purple. Black, Necrotic digits on bilateral hands involving right fourth finger and left third and fourth fingers.Stage II Right Buttock-nondraining. NEUROLOGICAL: Currently unable to assess, sedated SKIN: No rashes. Microbiology 08/27/17 11:00 Blood Blood Culture - Preliminary No Growth after 72 hours 08/27/17 23:20 Sputum Gram Stain - Final 08/27/17 23:20 Sputum Sputum Culture - Final 08/30/17 03:57 Sputum Sputum Culture - Preliminary 08/27/17 14:10 Peritoneal Fluid Gram Stain - Preliminary 08/27/17 14:10 Peritoneal Fluid Body Fluid Culture - Preliminary Group D Enterococcus 08/27/17 20:00 Urine,Catheterized Urine Culture - Final - Labs CBC & Chem 7: 08/31/17 04:10 08/31/17 04:10 Labs: Abnormal Lab Results - Last 24 Hours (Table) 08/30/17 08/30/17 08/30/17 Range/Units 11:57 18:10 23:33 WBC (3.8-10.6) k/uL RBC (3.80-5.40) m/uL Hgb (11.4-16.0) gm/dL Hct (34.0-46.0) % Neutrophils # (1.3-7.7) k/uL APTT (22.0-30.0) sec ABG pH (7.35-7.45) ABG pCO2 (35-45) mmHg ABG pO2 (83-108) mmHg ABG O2 Saturation (94-97) % Sodium (137-145) mmol/L Chloride (98-107) mmol/L BUN (7-17) mg/dL Creatinine (0.52-1.04) mg/dL Glucose (74-99) mg/dL POC Glucose (mg/dL) 179 H 136 H 145 H (75-99) mg/dL Calcium (8.4-10.2) mg/dL Phosphorus (2.5-4.5) mg/dL 08/31/17 08/31/17 08/31/17 Range/Units 04:10 04:10 04:10 WBC 23.8 H (3.8-10.6) k/uL RBC 3.26 L (3.80-5.40) m/uL Hgb 9.3 L (11.4-16.0) gm/dL Hct 29.2 L (34.0-46.0) % Neutrophils # 19.6 H (1.3-7.7) k/uL APTT 91.6 H (22.0-30.0) sec ABG pH (7.35-7.45) ABG pCO2 (35-45) mmHg ABG pO2 (83-108) mmHg ABG O2 Saturation (94-97) % Sodium 130 L (137-145) mmol/L Chloride 96 L (98-107) mmol/L BUN 65 H (7-17) mg/dL Creatinine 4.29 H (0.52-1.04) mg/dL Glucose 143 H (74-99) mg/dL POC Glucose (mg/dL) (75-99) mg/dL Calcium 6.4 L* (8.4-10.2) mg/dL Phosphorus 8.1 H* (2.5-4.5) mg/dL 08/31/17 08/31/17 Range/Units 05:52 07:42 WBC (3.8-10.6) k/uL RBC (3.80-5.40) m/uL Hgb (11.4-16.0) gm/dL Hct (34.0-46.0) % Neutrophils # (1.3-7.7) k/uL APTT (22.0-30.0) sec ABG pH 7.51 H (7.35-7.45) ABG pCO2 29 L (35-45) mmHg ABG pO2 205 H (83-108) mmHg ABG O2 Saturation 98.7 H (94-97) % Sodium (137-145) mmol/L Chloride (98-107) mmol/L BUN (7-17) mg/dL Creatinine (0.52-1.04) mg/dL Glucose (74-99) mg/dL POC Glucose (mg/dL) 118 H (75-99) mg/dL Calcium (8.4-10.2) mg/dL Phosphorus (2.5-4.5) mg/dL Microbiology - Last 24 Hours (Table) 08/30/17 03:57 Gram Stain - Preliminary Sputum Sputum Culture - Preliminary 08/27/17 11:00 Blood Culture - Preliminary Blood No Growth after 72 hours 08/27/17 23:20 Gram Stain - Final Sputum Sputum Culture - Final Assessment and Plan Assessment: -Acute abdominal sepsis secondary to peritonitis,possibly related to PD catheter -though initial white count 170 with repeat PD fluid cell count 35, peritoneal fluid positive for group D enterococcus. -Septic shock with possibility of cardiogenic shock secondary to acute NSTEMI. Severe cardiomyopathy ejection fraction of around 25%. -Acute Hypoxic respiratory failure, mechanical ventilator-dependent, re- intubated -Congestive heart failure systolic dysfunction unsure whether it's chronic and acute, in acute exacerbation -Acute hypoxic respiratory failure secondary to sepsis patient is presently intubated. -Possibility of acute non-ST elevation myocardial infarction with troponin elevation. 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 Final peritoneal culture results pending -Antibiotics/Wound Care as per ID. potential hemodialysis but currently hypotensive requiring pressor support. Follow closely with multiple consults. Patient's overall prognosis is poor. The impression and plan of care has been dictated as directed. : I performed a history and examination of this patient, discussed the same with the dictator. I agree with the dictator's note ,documented as a scribe. Any additional findings or plans will be noted.
[2017-08-31 17:56] LABS: Glucose,Whole Blood 129 mg/dL (75-99)
--- NOTE | 2017-08-31 18:51 | P.PN ---
Subjective Progress Note Date: 08/31/17 67-year-old female presented visit care unit where she was intubated sedated and mechanically ventilated receiving her CAPD. Is related from the available data that she receives her to [facility] and has been cared for in [facility] in [place] where she's been evaluated for renal transplantation from a living related donor, her daughter. The patient has a long-standing history of diabetes mellitus type 2 and has end- stage renal disease related to this and normally is cared for with. Dialysis via the nighttime cycler, and has been doing this well in November 2016. Patient has known severe peripheral vascular disease and did apparently have a left upper extremity AV fistula that was placed however did not function well and with the what appears to be steal syndrome is without evidence the dry gangrenous third and fourth fingers of the left hand. Is also developed a dry gangrenous changes to the right hand middle finger also. consider gastric bypass she remains with severe obesity although apparently it has improved and she has underlying cardiovascular disease and severe peripheral vascular disease. the patient has evidence of a peritoneal dialysis sample with evidence of enterococcus and with at the infectious diseases consultation was requested. 08/31/2017 patient remains in intensive care unit intubated sedated and mechanically ventilated with decreasing doses of vasopressor therapy, epinephrine has been discontinued. The patient has been tolerating her CAPD well and is now getting into some negative balance. Nephrology has evaluated is holding on hemodialysis as long as CAPD continues to be effective. Laboratory has finalize the culture as enterococcus, not VRE, from the peritoneal fluid. Blood culture negative so far sputum culture is pending. Objective - Vital Signs Vital signs: Vital Signs Temp 98.7 F 08/31/17 16:00 Pulse 87 08/31/17 18:00 Resp 11 L 08/31/17 18:00 BP 97/52 08/31/17 06:00 Pulse Ox 95 08/31/17 18:00 Intake & Output 08/30/17 08/31/17 08/31/17 18:59 06:59 18:59 Intake Total 834.368 854.861 335.182 Output Total 38 160 135 Balance 796.368 694.861 200.182 Weight 76.3 kg 76.2 kg 76.2 kg Intake: IV 270 130 160 Meropenem 500 mg In 50 50 Sodium Chloride 0.9% 50 ml @ 100 mls/hr IVPB Q24HR [facility] Rx#:[id number] Potassium Chloride 10 meq 100 In Water For Injection 1 100ml.bag @ 100 mls/hr IVPB Q1H [facility] Rx#: [id number] sodium chloride 0.9% 1, 120 130 110 000 ml KVO Intake, IV Titration 444.368 724.861 125.182 Amount Heparin Sodium,Porcine/ 306.223 76.057 D5w Pmx 25,000 unit In Dextrose/Water 1 500ml. bag @ 12 UNITS/KG/HR 13. 49 mls/hr IV .Q24H [facility] Rx #:[id number] Norepinephrin 16 mg-0.9% 94.368 241.901 49.125 Ns Pmx 16 mg In 250 ml @ Titrate IV .Q0M [facility] Rx#: [id number] Propofol 1,000 mg In 100.000 176.737 Empty Bag 1 bag @ Titrate IV .Q0M [facility] Rx#: [id number] Vancomycin 1,250 mg In 250 Sodium Chloride 0.9% 250 ml @ 125 mls/hr IVPB ONCE ONE Rx#:[id number] Tube Feeding 50 Other 120 Output: Urine 38 160 135 Other: Voiding Method Indwelling Catheter Indwelling Catheter Indwelling Catheter # Bowel Movements 0 1 ABP, PAP, CO, CI - Last Documented Arterial Blood Pressure 101/55 - Exam 67-year-old female who appears older than her stated age, is intubated sedated and mechanicallyventilated at this time HEENT: Anicteric conjunctiva are pink and moist nasal mucosa grossly intact without significant lesions, there is no thrush.poor dentition Neck: The neck is supple without significant lymphadenopathy or thyromegaly. Lungs: there is symmetrical air entry with expiratory wheezes that are scattered no herber bronchial sounds are heard Heart: irregular with audible S1 and S2 soft S4 no distinct murmur click or rub PMI was nondisplaced with urethral Abdomen: Positive bowel sounds soft nonrigid without palpable masses or organomegaly. Extremities: the right upper extremities shows evidence of the third finger distal mummification, similar has occurred third and fourth fingers to the left hand. The lower extremities are cool but not frankly cold no significant open ulcerations are seen been on the current vasopressor therapy the toes are dusky. Neuro: sedated and mechanically ventilated - Labs CBC & Chem 7: 08/31/17 04:10 08/31/17 04:10 Labs: Abnormal Lab Results - Last 24 Hours (Table) 08/30/17 08/31/17 08/31/17 Range/Units 23:33 04:10 04:10 WBC 23.8 H (3.8-10.6) k/uL RBC 3.26 L (3.80-5.40) m/uL Hgb 9.3 L (11.4-16.0) gm/dL Hct 29.2 L (34.0-46.0) % Neutrophils # 19.6 H (1.3-7.7) k/uL APTT (22.0-30.0) sec ABG pH (7.35-7.45) ABG pCO2 (35-45) mmHg ABG pO2 (83-108) mmHg ABG O2 Saturation (94-97) % Sodium 130 L (137-145) mmol/L Chloride 96 L (98-107) mmol/L BUN 65 H (7-17) mg/dL Creatinine 4.29 H (0.52-1.04) mg/dL Glucose 143 H (74-99) mg/dL POC Glucose (mg/dL) 145 H (75-99) mg/dL Calcium 6.4 L* (8.4-10.2) mg/dL Phosphorus 8.1 H* (2.5-4.5) mg/dL 08/31/17 08/31/17 08/31/17 Range/Units 04:10 05:52 07:42 WBC (3.8-10.6) k/uL RBC (3.80-5.40) m/uL Hgb (11.4-16.0) gm/dL Hct (34.0-46.0) % Neutrophils # (1.3-7.7) k/uL APTT 91.6 H (22.0-30.0) sec ABG pH 7.51 H (7.35-7.45) ABG pCO2 29 L (35-45) mmHg ABG pO2 205 H (83-108) mmHg ABG O2 Saturation 98.7 H (94-97) % Sodium (137-145) mmol/L Chloride (98-107) mmol/L BUN (7-17) mg/dL Creatinine (0.52-1.04) mg/dL Glucose (74-99) mg/dL POC Glucose (mg/dL) 118 H (75-99) mg/dL Calcium (8.4-10.2) mg/dL Phosphorus (2.5-4.5) mg/dL 08/31/17 08/31/17 08/31/17 Range/Units 11:25 11:58 17:53 WBC (3.8-10.6) k/uL RBC (3.80-5.40) m/uL Hgb (11.4-16.0) gm/dL Hct (34.0-46.0) % Neutrophils # (1.3-7.7) k/uL APTT 63.3 H (22.0-30.0) sec ABG pH (7.35-7.45) ABG pCO2 (35-45) mmHg ABG pO2 (83-108) mmHg ABG O2 Saturation (94-97) % Sodium (137-145) mmol/L Chloride (98-107) mmol/L BUN (7-17) mg/dL Creatinine (0.52-1.04) mg/dL Glucose (74-99) mg/dL POC Glucose (mg/dL) 138 H 129 H (75-99) mg/dL Calcium (8.4-10.2) mg/dL Phosphorus (2.5-4.5) mg/dL Microbiology - Last 24 Hours (Table) 08/27/17 14:10 Gram Stain - Preliminary Peritoneal Fluid Body Fluid Culture - Preliminary Enterococcus faecalis 08/27/17 11:00 Blood Culture - Preliminary Blood No Growth after 96 hours 08/30/17 03:57 Gram Stain - Preliminary Sputum Sputum Culture - Preliminary Laboratory Results WBC 23.8 k/uL (3.8-10.6) H 08/31/17 04:10 RBC 3.26 m/uL (3.80-5.40) L 08/31/17 04:10 Hgb 9.3 gm/dL (11.4-16.0) L 08/31/17 04:10 Hct 29.2 % (34.0-46.0) L 08/31/17 04:10 MCV 89.7 fL (80.0-100.0) 08/31/17 04:10 MCH 28.7 pg (25.0-35.0) 08/31/17 04:10 MCHC 32.0 g/dL (31.0-37.0) 08/31/17 04:10 RDW 14.9 % (11.5-15.5) 08/31/17 04:10 Plt Count 392 k/uL (150-450) 08/31/17 04:10 Neutrophils % 82 % 08/31/17 04:10 Lymphocytes % 13 % 08/31/17 04:10 Monocytes % 2 % 08/31/17 04:10 Eosinophils % 2 % 08/31/17 04:10 Basophils % 0 % 08/31/17 04:10 Neutrophils # 19.6 k/uL (1.3-7.7) H 08/31/17 04:10 Lymphocytes # 3.0 k/uL (1.0-4.8) 08/31/17 04:10 Monocytes # 0.6 k/uL (0-1.0) 08/31/17 04:10 Eosinophils # 0.5 k/uL (0-0.7) 08/31/17 04:10 Basophils # 0.1 k/uL (0-0.2) 08/31/17 04:10 Hypochromasia Slight 08/27/17 10:35 Anisocytosis Slight 08/28/17 04:00 PT 13.7 sec (9.0-12.0) H 08/28/17 04:00 INR 1.5 (<1.2) H 08/28/17 04:00 APTT 63.3 sec (22.0-30.0) H 08/31/17 11:25 D-Dimer 5.03 mg/L FEU (<0.60) H 08/27/17 04:44 Sample Site [place] 08/31/17 07:42 ABG pH 7.51 (7.35-7.45) H 08/31/17 07:42 ABG pCO2 29 mmHg (35-45) L 08/31/17 07:42 ABG pO2 205 mmHg (83-108) H 08/31/17 07:42 ABG HCO3 23 mmol/L (21-25) 08/31/17 07:42 ABG Total CO2 24 mmol/L (19-24) 08/31/17 07:42 ABG O2 Saturation 98.7 % (94-97) H 08/31/17 07:42 ABG Base Excess -0.2 mmol/L 08/31/17 07:42 Rhett Test No 08/31/17 07:42 ABG Lactic Acid 4.2 mmol/L (0.5-1.6) H* 08/27/17 16:01 FiO2 70 % 08/31/17 07:42 Sodium 130 mmol/L (137-145) L 08/31/17 04:10 Potassium 4.2 mmol/L (3.5-5.1) 08/31/17 04:10 Chloride 96 mmol/L (98-107) L 08/31/17 04:10 Carbon Dioxide 22 mmol/L (22-30) 08/31/17 04:10 Anion Gap 12 mmol/L 08/31/17 04:10 BUN 65 mg/dL (7-17) H 08/31/17 04:10 Creatinine 4.29 mg/dL (0.52-1.04) H 08/31/17 04:10 Est GFR (CKD-EPI)AfAm 12 (>60 ml/min/1.73 sqM) 08/31/17 04:10 Est GFR (CKD-EPI)NonAf 10 (>60 ml/min/1.73 sqM) 08/31/17 04:10 Glucose 143 mg/dL (74-99) H 08/31/17 04:10 POC Glucose (mg/dL) 129 mg/dL (75-99) H 08/31/17 17:53 POC Glu Bible Worker ID Kristie Worley 08/31/17 17:[address] Glu mg/dL 103 08/27/17 10:35 Hemoglobin A1c 5.2 % (4.0-6.0) 08/27/17 10:35 Lactic Ac Sepsis Rflx Y 08/27/17 11:19 Plasma Lactic Acid [place] mmol/L (0.7-2.0) 08/27/17 10:35 Calcium 6.4 mg/dL (8.4-10.2) L* 08/31/17 04:10 Phosphorus 8.1 mg/dL (2.5-4.5) H* 08/31/17 04:10 Magnesium 1.8 mg/dL (1.6-2.3) 08/31/17 04:10 Total Bilirubin 0.4 mg/dL (0.2-1.3) 08/27/17 04:44 AST 35 U/L (14-36) 08/27/17 04:44 ALT 23 U/L (9-52) 08/27/17 04:44 Alkaline Phosphatase 66 U/L (38-126) 08/27/17 04:44 Total Creatine Kinase 292 U/L (30-135) H 08/30/17 04:00 CK-MB (CK-2) 9.5 ng/mL (0.0-2.4) H* 08/30/17 04:00 CK-MB (CK-2) Rel Index 3.3 08/30/17 04:00 Troponin I 9.540 ng/mL (0.000-0.034) H* 08/30/17 04:00 Total Protein 4.8 g/dL (6.3-8.2) L 08/27/17 04:44 Albumin 2.3 g/dL (3.5-5.0) L 08/27/17 04:44 Triglycerides 62 mg/dL (<150) 08/28/17 04:00 Cholesterol 104 mg/dL (<200) 08/28/17 04:00 LDL Cholesterol, Calc 41 mg/dL (0-99) 08/28/17 04:00 HDL Cholesterol 51 mg/dL (40-60) 08/28/17 04:00 TSH >100.000 mIU/L (0.465-4.680) H 08/27/17 10:35 Free T4 0.74 ng/dL (0.78-2.19) L 08/27/17 10:35 Urine Color Yellow 08/27/17 20:00 Urine Appearance Cloudy (Clear) H 08/27/17 20:00 Urine pH 5.0 (5.0-8.0) 08/27/17 20:00 Ur Specific [place] 1.020 (1.001-1.035) 08/27/17 20:00 Urine Protein 1+ (Negative) H 08/27/17 20:00 Urine Glucose (UA) 3+ (Negative) H 08/27/17 20:00 Urine Ketones Negative (Negative) 08/27/17 20:00 Urine Blood Small (Negative) H 08/27/17 20:00 Urine Nitrite Negative (Negative) 08/27/17 20:00 Urine Bilirubin Negative (Negative) 08/27/17 20:00 Urine Urobilinogen <2.0 mg/dL (<2.0) 08/27/17 20:00 Ur Leukocyte Esterase Small (Negative) H 08/27/17 20:00 Urine RBC 1 /hpf (0-5) 08/27/17 20:00 Urine WBC 12 /hpf (0-5) H 08/27/17 20:00 Ur Squamous Epith Cells 11 /hpf (0-4) H 08/27/17 20:00 Amorphous Sediment Few /hpf (None) H 08/27/17 20:00 Hyaline Casts 3 /lpf (0-2) H 08/27/17 20:00 Urine Mucus Rare /hpf (None) H 08/27/17 20:00 Fluid Source Peritoneal 08/29/17 14:09 Fluid Color Colorless 08/29/17 14:09 Fluid Appearance Clear 08/29/17 14:09 Fluid RBC 3 /uL 08/29/17 14:09 Fluid Nucleated Cells 35 /uL 08/29/17 14:09 Fluid Polynuclear WBCs 81 % 08/29/17 14:09 Fluid Mononuclear WBCs 19 % 08/29/17 14:09 Random Vancomycin 12.5 ug/mL 08/30/17 04:00 Microbiology 08/27/17 14:10 Peritoneal Fluid Gram Stain - Preliminary 08/27/17 14:10 Peritoneal Fluid Body Fluid Culture - Preliminary Enterococcus faecalis 08/27/17 11:00 Blood Blood Culture - Preliminary No Growth after 96 hours 08/30/17 03:57 Sputum Gram Stain - Preliminary 08/30/17 03:57 Sputum Sputum Culture - Preliminary 08/27/17 23:20 Sputum Gram Stain - Final 08/27/17 23:20 Sputum Sputum Culture - Final 08/27/17 20:00 Urine,Catheterized Urine Culture - Final Assessment and Plan (1) Respiratory failure Current Visit: Yes Status: Acute Code(s): J96.90 - RESPIRATORY FAILURE, UNSP , UNSP W HYPOXIA OR HYPERCAPNIA SNOMED Code(s): 972953555 (2) Renal failure Current Visit: Yes Status: Acute Code(s): N19 - UNSPECIFIED KIDNEY FAILURE SNOMED Code(s): 93181893 (3) Bacterial infection associated with peritoneal dialysis catheter Narrative/Plan: 67-year-old female who is in the intensive care unit she is intubated sedated and mechanically ventilated due to her significant sepsis and hypotension at this time. There is concerns that she has an enterococcal peritonitis related to her CAPD. She's been evaluated by nephrology as well as surgery. At this time antimicrobial therapy has been initiated with vancomycin. Potentially may receive vancomycin in the dialysate if nephrology believes it is a potential. Follow-up sample should be obtained to ensure that there some improvement. there is discussion about the potential for hemodialysis but she is too hypotensive at this point in time. there is no data to suggest that she has a history of VRE will continue vancomycin therapy for now. Cultures for further direct antibiotic therapy. She is receiving meropenem also for now until further data is available. significant leukocytosis occurring directly related to her peritonitis. 08/31/2017 the patient has had similar treatment. Her significant acidosis is improved and is tolerating the CAPD somewhat better actually getting some negative fluid balance. As far as the peritonitis and sepsis appears to be somewhat better today. She is requiring less vasopressor therapy. Leukocytosis remains elevated at 23.8. Of note her creatinine has come down to 4.29 from a peak of 7.9, revealing that the CAPD is showing some affective nature. At this time will continue the antibiotic therapy with vancomycin per pharmacy dosing. Meropenem is being utilize also for now pending sputum culture results, once this is clear that there is not significant gram-negative pneumonia the meropenem can be streamlined. The patient sounds are present and they are updated on her situation. The operative foam will be applied to the stage III pressure ulceration to her buttocks that is present on admission, it was unstageable at admission. Current Visit: Yes Status: Acute Code(s): T85.71XA - INFECT/INFLM REACTION DUE TO PERITON DIALYSIS CATHETER, INIT; A49.9 - BACTERIAL INFECTION, UNSPECIFIED SNOMED Code(s): 310605975
--- NOTE | 2017-08-31 22:36 | PN ---
PROGRESS NOTE Patient is seen for followup for end-stage renal disease. Patient remains on the vent. Levophed had gone up to about 18 mcg and then this morning it is back down to 7-8 mcg. We have had some more success with the PD with UF of about 200 to 300 mL with the last few exchanges. Patient's chest x-ray looks a bit better. On examination, patient is sedated. Blood pressure this morning was 102/52, heart rate 88 per minute. Patient is afebrile. EXAMINATION OF THE HEART: S1, S2. EXAMINATION OF LUNGS: Bilateral breath sounds are heard. ABDOMEN: Soft. Examination of lower extremities shows edema 2+ bilaterally. Significant perineal edema is also noted. [employer] exam cannot be performed. Labs show sodium 130, potassium 4.2, BUN 65, serum creatinine 4.29, phosphorus 8.1, calcium 6.4. ASSESSMENT: 1. End-stage renal disease, currently on peritoneal dialysis. Will continue with the current PD exchanges and I will actually switch to 2.5% solution alternating with 4.25% solution, and I will also increase it to q.4 hours to help increase ultrafiltration. It looks like patient has had with the last few changes. Therefore we will continue with the PD for now. 2. CAPD peritonitis with fluid culture growing Enterococcus faecalis. We will continue with the antibiotics. Cell count had decreased to about 35 two days ago. We will check another PD fluid cell count. No plans for removal of PD catheter yet. 3. Vent-dependent respiratory failure. 4. Fluid overload. 5. Cardiomyopathy. 6. Anemia of chronic disease, maintained on Aranesp. PLAN: Increase PD exchanges to q.4 hours and alternate 2.5% solution with 4.25% solution to increase ultrafiltration. So far it looks like we have been getting good UF with the last few PD exchanges. Therefore we will continue with PD for now. I will recheck another PD fluid cell count tomorrow. MMODL / IJN: [id number] /
[2017-08-31 23:54] LABS: Glucose,Whole Blood 196 mg/dL (75-99)
[2017-09-01] MEDS: PROPOFOL 1,000 MG in EMPTY BAG 1 BAG IV SCH (02:46)
[2017-09-01] MEDS: DIALYSIS (PERIT 2.5%) 2,000 ML 50 G/2,000 ML BAG INTRAPERIT SCH ×3 (04:02→19:59)
[2017-09-01 04:23] LABS: Basophils % (A) 0 %; Eosinophils # (A) 0.6 k/uL (0-0.7); Eosinophils % (A) 3 %; HCT 27.1 % (34.0-46.0); HGB 8.8 gm/dL (11.4-16.0); Lymphocytes # (A) 1.6 k/uL (1.0-4.8); Lymphocytes % (A) 7 %; MCH 28.9 pg (25.0-35.0); MCHC 32.5 g/dL (31.0-37.0); MCV 88.8 fL (80.0-100.0); Mean Platelet Volume 7.7; Monocytes # (A) 0.5 k/uL (0-1.0); Monocytes % (A) 2 %; Neutrophils # (A) 19.4 k/uL (1.3-7.7); Neutrophils % (A) 87 %; Platelet Count 341 k/uL (150-450); RBC 3.05 m/uL (3.80-5.40); RDW 14.5 % (11.5-15.5); WBC 22.2 k/uL (3.8-10.6)
[2017-09-01 04:42] LABS: Magnesium 1.7 mg/dL (1.6-2.3); Phosphorus 7.8 mg/dL (2.5-4.5); Potassium 3.5 mmol/L (3.5-5.1)
[2017-09-01 04:46] LABS: Vancomycin,Random 17.9 ug/mL
[2017-09-01 06:02] LABS: Glucose,Whole Blood 214 mg/dL (75-99)
[2017-09-01] MEDS: INSULIN ASPART 100 UNIT/ML 1 ML 10 ML VIAL SQ SCH ×3 (06:05→17:40)
[2017-09-01] MEDS: NITROGLYCERIN OINT 1 INCH/GM PACKET TOPICAL SCH (06:05)
[2017-09-01 07:12] LABS: ABG Base Excess -0.7 mmol/L; ABG HCO3 23 mmol/L (21-25); ABG Oxygen Saturation 97.9 % (94-97); ABG PCO2 32 mmHg (35-45); ABG PH 7.47 (7.35-7.45); ABG PO2 128 mmHg (83-108); ABG TCO2 24 mmol/L (19-24)
[2017-09-01] MEDS: IPRATROPIUM-ALBUTEROL 3 ML NEB INHALATION SCH ×4 (08:02→19:19)
[2017-09-01] MEDS: CHLORHEXIDINE GLUCONATE 15 ML CUP MUCOUS MEM SCH ×2 (08:17→21:29)
[2017-09-01] MEDS: MIDODRINE 5 MG TAB PO SCH ×2 (08:18→17:11)
[2017-09-01] MEDS: ASPIRIN 325 MG TAB PO SCH (08:18)
[2017-09-01] MEDS: SEVELAMER 800 MG TAB PO SCH ×3 (08:18→17:11)
[2017-09-01] MEDS: LEVOTHYROXINE IVP 100 MCG/5 ML VIAL IV SCH (08:20)
[2017-09-01] MEDS: PANTOPRAZOLE 40 MG/10 ML VIAL IVP SCH (08:22)
[2017-09-01] MEDS: DIALYSIS (PERIT 4.25%) 2000 ML 85 G/2,000 ML BAG INTRAPERIT SCH ×3 (08:37→16:33)
[2017-09-01 08:40] LABS: Glucose,Whole Blood 166 mg/dL (75-99)
--- NOTE | 2017-09-01 08:51 | XR ---
EXAMINATION TYPE: XR chest 1V portable DATE OF EXAM: 09/01/2017 COMPARISON: 08/31/2017 HISTORY: Tube placement TECHNIQUE: Single frontal view of the chest is obtained. FINDINGS: Bilateral consolidation and pleural effusion. Could not exclude a small amount of subcutan eous emphysema along the right lateral chest wall. Interstitial pattern seen. ET tube 3.4 cm above ca halley and NG tube seen with the tip at the level of the gastric fundus. No sizable pneumothorax. Arthr opathy of the shoulders noted. Postsurgical changes noted. IMPRESSION: 1. Diffuse bilateral pleural-parenchymal changes correlate for CHF versus pneumonia. No significant i nterval change.
[2017-09-01] MEDS: MEROPENEM 500 MG in SODIUM CHLORIDE 0.9% 50 ML IVPB SCH (09:00)
[2017-09-01] MEDS ORDERED: VANCOMYCIN 1,250 MG in SODIUM CHLORIDE 0.9% 250 ML IVPB ONE (09:00)
[2017-09-01] MEDS: METOPROLOL TARTRATE 12.5 MG TAB PO SCH (09:00)
--- NOTE | 2017-09-01 10:58 | PN ---
PROGRESS NOTE Mrs. Ballard still remains in sinus rhythm today. She has had intermittent A. fib. She is on a vent, not very responsive today. Apparently, she is responding to commands. Her blood pressure is in the 120 range systolic. She is on a small dose of Levophed. I am recommending that we continue the beta carl, the nitro paste and continue IV heparin in view of her atrial fib. Physical exam revealed S1, S2 with a short systolic murmur. Lungs reveal decent air entry assist with ventilator breaths. Abdomen is soft. There is evidence of some vascular insufficiency clinically on fingers of the hand and lower extremities. Prognosis remains poor. We will continue current medical regimen from a cardiac standpoint. MMODL / IJN: [id number] /
--- NOTE | 2017-09-01 11:05 | P.PN ---
Subjective Progress Note Date: 09/01/17 Principal diagnosis: Acute hypoxic respiratory failure secondary to congestive heart failure, systolic in nature, abdominal sepsis. Secondary to enterococcus faecalis This is a 67-year-old female patient with multiple medical problems and comorbidities who presented to ED with acute respiratory distress, intubated and placed on a mechanical ventilator and then moved to the intensive care unit. The patient has taken all of her care at [facility]. She has chronic renal failure and she currently has end stage renal disease and she is seeking kidney transportation the patient has been evaluated at [facility] for potential kidney transplant the daughter being her daughter. This patient lives in [place] and she recently moved in with her daughter living in [facility], and for that reason during this current episode the patient was brought in to our hospital. All of the information was obtained is from the daughters at the bedside This patient has developed renal failure, probably related to previous history of diabetes mellitus. She was started on peritoneal dialysis approximately year ago and she does nighttime cycler continuous with a 1.5 fluid exchange. This was started on high-dose in November 2016. Hemodialysis was considered and the patient was about to have a left upper extremity AV fistula. The fistula itself got clotted and the patient developed also ulceration in her digits bilaterally and for that reason this was not pursued. Currently the patient is gangrenous necrotic digits of the middle fingers of the left and the fourth finger on the right, affecting the tips. This was investigated at length at [facility]. The patient underwent a CT angios of the entire chest abdomen pelvis and extremities and she was found to have no significant subclavian axillary or brachial artery narrowing. She was found to have diffuse atherosclerosis with calcification of the bilateral radial and ulnar arteries and mild to moderate narrowing in the areas affecting the wrist. Atherosclerotic changes were also seen in the infrarenal abdominal aortic area which was estimated to be severe. Bilateral iliofemoral atherosclerotic changes were also seen. The patient was told to have small vessel disease and based on the reported history there was no evidence of any embolic phenomena or vasculitis The patient is known to have coronary artery disease and she has undergone pleased bypass surgery. She was morbidly obese and she was diabetic. She has undergone gastric bypass surgery more than 6 years ago and she has lost considerable amount of weight and during this time the patient was taken off as soon as she improved in terms of her blood sugar control and she started having episodes of hypoglycemia. Currently she is off anticoagulation. She also has chronic atrial fibrillation, chronic renal failure and currently she is on peritoneal dialysis, she hasn't complications of hyperkalemia, and she has history of hypertension, hyperlipidemia, hypothyroidism, peripheral vascular disease and previous history of coronary artery disease and myocardial infarction. The patient was at her daughter's home where she was feeling weak. In the director of rehabilitative services hours the patient was found by the daughter collapsed in the bathroom. No reported chest pain or palpitations. No focal neurological deficit. The patient was lethargic and she was arousable and she was able to speak. She was moving all 4 extremities according to the history. No fever. No chills. No cough or sputum production. No nausea, vomiting or abdominal pain. The PD catheter was apparently functional. No skin rashes. Necrotic digits were seen bilaterally and these are dry gangrene. In the ED, the patient was found to be hypotensive postintubation. The patient was started on IV fluids and pressors. The patient was started on epinephrine infusion. She was intubated and blood gas showed severe metabolic acidosis. The chest x-ray shows cardiomegaly and pulmonary vessel congestion. ET tube was in a good location. No consolidation . Meanwhile, the patient's white cell count was at 14.2. The patient had a potassium level of 6.5 was being treated in the emergency department with a combination of Kayexalate, D50 and insulin and bicarb and the patient was severely acidotic with anion gap metabolic acidosis with a gap of 26 and a bicarb level of 5, creatinine of 9.4, and a troponin level of 1.2. EKG is not showing any acute ischemic abnormalities and is showing a normal sinus rhythm with a left bundle-branch block pattern. Subsequent potassium level was 7.1. Waldemar saw the patient in the ICU and we're going to start peritoneal dialysis. Meanwhile the patient is being resuscitated IV fluids. We'll start empiric antibiotic coverage. We'll monitor cardiac enzymes and obtain an echocardiogram. The computed tomography scan of the brain and C-spine showed no evidence of acute fracture and there was no evidence of any acute intracranial hemorrhage. On 08/28/2018 I'm seeing this patient for a follow-up. This is a very complicated case with present it with severe metabolic acidosis, respiratory failure, hyperkalemia and hypotension. The patient is being seen today in a follow-up. The patient remains sedated on a mechanical ventilator. This morning, she doesn't assist-control at the rate of 22, tidal volume 600, FiO2 of 50% and a PEEP of 5. Blood gases showed a component of acute respiratory alkalosis and the pH was at 7.47 with a pCO2 of 27 and pO2 1:30. Based on that , I dropped the tidal volume down to 500 by mouth I also drop the FiO2 down to 40%. Chest x-ray still showing a component of pulmonary vessel congestion and small bilateral pleural effusion. CT angios the chest was done yesterday and showed cardiomegaly and bilateral pleural effusion and pulmonary vascular congestion. He was no evidence of any pulmonary embolism. The patient is only on few mics of the low-fat for hemodynamic support. Troponin peaked at 7 and the patient is still on IV heparin and aspirin.. The patient had an echocardiogram yesterday that showed severe impaired LV function with an ejection fraction of 25-30%. In addition, there was segmental wall motion abnormalities involving the inferior wall and anteroseptal wall septum. The right ventricular pressure was estimated to be 42 mmHg. There was no significant valvular abnormalities. Left atrium was dilated. There was mild aortic stenosis. The patient had cultures sent and the blood culture and the abdominal fluid culture came back all negative. She remains on a combination of vancomycin and meropenem. Afebrile. White cell count is not elevated. Infected has dropped from 17 down to 11.9. Potassium level has also dropped down to 3.7 and the patient has a bicarb level which is up to 17. Calcium level is at 6.4. Phosphorus level is at 8.1. The patient was receiving abdominal PD 4 times a day with a 1.5% solution. Furthermore, the patient was noted to be somewhat hypothyroid with a TSH of 101 100 and a free T4 of 0.74. She was placed on 100 mg of IV Synthroid on a daily basis. Her hypothermia has also recovered. She is on tube feeds for now. Family is at the bedside. On 08/29/2017, I'm seeing this patient for a follow-up. The patient remains intubated on mechanical ventilator. This morning, she did assist-control mode at a rate of 22, tidal volume 500, FiO2 of 40% and a PEEP of 5. The blood gases still showing a component of respiratory alkalosis with a pH of 7.49 and a pCO2 of 32 and pO2 97. Based on this, I dropped the tidal volume down to 450. The patient will be given a sedation holiday again and we'll check weaning parameters and assess his readiness to wean. Upon yesterday's sedation holiday, the patient woke up last and she was able to follow some simple commands. Hemodynamically, the patient is still requiring 2 mics of epinephrine for blood pressure control. The patient is undergoing peritoneal dialysis with several exchanges on a daily basis with her 2.5% solution. The patient has no fever. No chills. Cultures of been negative. She was covered with a combination of Merrem and vancomycin. White cell count is at 17.4. The serum bicarb is up to 21 and there is no hyperkalemia. No other significant abnormalities otherwise for now. Patient was reevaluated today on 08/30/2017, remains on mechanical ventilation, intubated, sedated, remains on relatively high FiO2 100% which I cut down to 70% , and PEEP is at 8. Patient has abnormal chest x-ray showing interstitial edema , I believe the patient has fluid overload although the possibility of noncardiogenic pulmonary edema is not entirely ruled out, but considering the patient's LV dysfunction and considering she has an EF of 25%, this is most likely cardiogenic pulmonary edema in nature. Patient is not making much urine , she is still under peritoneal dialysis, and I believe we are not able to remove significant amount of fluids to improve her pulmonary status. Patient may eventually require hemodialysis. However she is still on a small dose of levo fed, may be able to cut it down and eventually arrange for hemodialysis. Labs were reviewed WBC count is 21.1 hemoglobin is 9.1 ABG showed a pO2 of 87 pCO2 of 34 pH of 7.38. Basic metabolic profile was reviewed continues to have an iron gap of 18 BUN is 67 creatinine 4.60. Chest x-ray as noted above endotracheal tube is intact and in the proper position. Chest x-ray again is consistent with pulmonary edema. Patient was reevaluated today on 08/31/2017, remains on mechanical ventilation, her ventilator settings are tidal volume of 450, assist control rate of 20 FiO2 is 50%, and PEEP is now at 5. Remains on levo fed at 7 mcg/m. Chest x-ray continues to show interstitial edema, and pleural effusions, slight improvement compared to yesterday's chest x-ray. ABG seems to be a lot better today, pO2 was 205 pCO2 29 pH of 7.51. BUN is 65 creatinine 4.29. Electrolytes otherwise are relatively unremarkable. Bicarb is 22. Patient remains on peritoneal dialysis, urine output is less than 10 mL per hour. Final microbiology report is pending, peritoneal fluid was positive for group D enterococcus. Patient remains on vancomycin and Merrem. Changes may be made once we have a final report on the cultures. Patient remains on propofol drip, not quite ready for any weaning trials. Today I will initiate enteral nutrition. Reevaluated today on 09/01/2017, patient remains on mechanical ventilation, ventilator settings are the same, however I was able to cut down the FiO2 to 40 % today. Remains on 4 g of levo fed, chest x-ray is showing worsening right- sided pleural effusion, hence may consider an ultrasound and thoracentesis. Patient is presently on heparin, if thoracentesis is to be done, will hold the heparin for few hours. Oxygenation is improving, and ABG seems to be better today. Hence I have instructed the nurses to wake up the patient, assess her mental status, assess possibly weaning parameters, and even consider a weaning trial today. Ultrasound was ordered, and may even consider thoracentesis. Patient is on propofol, we will hold the propofol and assess mental status today. ABG showed a pO2 of 128 pCO2 of 32 pH of 7.47. Lactulose were reviewed renal profile was reviewed WBC count is 22.2 hemoglobin is 8.8. Discussed with the team cdl driver, still the option of hemodialysis is to be considered if the patient does not continue to improve and cannot wean easily. Remains on antibiotics for her Enterococcus faecalis infection/peritonitis. Remains on enteral feeding and is being well-tolerated. Objective - Vital Signs Vital signs: Vital Signs Temp 99.5 F 09/01/17 08:00 Pulse 87 09/01/17 10:30 Resp 31 H 09/01/17 10:30 BP 104/51 09/01/17 04:00 Pulse Ox 97 09/01/17 10:30 Intake & Output 08/31/17 09/01/17 09/01/17 18:59 06:59 18:59 Intake Total 435.182 529.447 250 Output Total 135 275 45 Balance 300.182 254.447 205 Weight 76.2 kg 74.6 kg 74.6 kg Intake: IV 160 120 90 Meropenem 500 mg In 50 50 Sodium Chloride 0.9% 50 ml @ 100 mls/hr IVPB Q24HR ALEXANDRA Rx#:[id number] sodium chloride 0.9% 1, 110 120 40 000 ml KVO Intake, IV Titration 225.182 139.447 Amount Heparin Sodium,Porcine/ 76.057 D5w Pmx 25,000 unit In Dextrose/Water 1 500ml. bag @ 12 UNITS/KG/HR 13. 49 mls/hr IV .Q24H ALEXANDRA Rx #:[id number] Norepinephrin 16 mg-0.9% 49.125 70.034 Ns Pmx 16 mg In 250 ml @ Titrate IV .Q0M ALEXANDRA Rx#: [id number] Propofol 1,000 mg In 100 69.413 Empty Bag 1 bag @ Titrate IV .Q0M ALEXANDRA Rx#: [id number] Tube Feeding 50 180 130 Other 90 30 Output: Urine 135 275 45 Other: Voiding Method Indwelling Catheter Indwelling Catheter Indwelling Catheter # Bowel Movements 1 ABP, PAP, CO, CI - Last Documented Arterial Blood Pressure 120/60 - Exam Appearance the patient is intubated, sedated, on mechanical ventilation. Head exam was generally normal. There was no scleral icterus or corneal arcus. Mucous membranes were moist. The patient has an orogastric and orotracheal tube are both in place and secured. Neck was supple and without jugular venous distension, thyromegaly, or carotid bruits. Carotids were easily palpable bilaterally. There was no adenopathy. Lungs sounds are diminished bilaterally along with some scattered rhonchi and bilateral crackles in lung bases. No wheezing. ET tube is in a good location. Heart sounds irregular irregular rhythm, positive S1-S2, no significant murmurs appreciated. Abdominal exam revealed normal bowel sounds. The abdomen was soft, non-tender, and without masses, organomegaly, or appreciable enlargement of the abdominal aorta. The patient has a PD catheter which is in place and there is no direct tenderness or rebound tensile guarding. Extremities revealed no edema. Pulses in lower extremities are markedly diminished. The patient has necrotic digits at the tips of the digits involving the third mid finger on the left and the fourth finger on the right. There is evidence of dry gangrene. No evidence of any wound infection. The area is pretty much black and necrotic. No lower extremities edema. No cyanosis. Neurologic the patient is sedated. Remains on propofol, will hold and arouse the patient assess mental status today. - Labs CBC & Chem 7: 09/01/17 04:00 09/01/17 04:00 Labs: Abnormal Lab Results - Last 24 Hours (Table) 08/31/17 08/31/17 08/31/17 Range/Units 11:25 11:58 17:53 WBC (3.8-10.6) k/uL RBC (3.80-5.40) m/uL Hgb (11.4-16.0) gm/dL Hct (34.0-46.0) % Neutrophils # (1.3-7.7) k/uL APTT 63.3 H (22.0-30.0) sec ABG pH (7.35-7.45) ABG pCO2 (35-45) mmHg ABG pO2 (83-108) mmHg ABG O2 Saturation (94-97) % Sodium (137-145) mmol/L Chloride (98-107) mmol/L BUN (7-17) mg/dL Creatinine (0.52-1.04) mg/dL Glucose (74-99) mg/dL POC Glucose (mg/dL) 138 H 129 H (75-99) mg/dL Calcium (8.4-10.2) mg/dL Phosphorus (2.5-4.5) mg/dL 08/31/17 09/01/17 09/01/17 Range/Units 23:52 04:00 04:00 WBC 22.2 H (3.8-10.6) k/uL RBC 3.05 L (3.80-5.40) m/uL Hgb 8.8 L (11.4-16.0) gm/dL Hct 27.1 L (34.0-46.0) % Neutrophils # 19.4 H (1.3-7.7) k/uL APTT (22.0-30.0) sec ABG pH (7.35-7.45) ABG pCO2 (35-45) mmHg ABG pO2 (83-108) mmHg ABG O2 Saturation (94-97) % Sodium 129 L (137-145) mmol/L Chloride 95 L (98-107) mmol/L BUN 60 H (7-17) mg/dL Creatinine 3.80 H (0.52-1.04) mg/dL Glucose 186 H (74-99) mg/dL POC Glucose (mg/dL) 196 H (75-99) mg/dL Calcium 6.0 L* (8.4-10.2) mg/dL Phosphorus 7.8 H (2.5-4.5) mg/dL 09/01/17 09/01/17 09/01/17 Range/Units 05:45 06:01 07:06 WBC (3.8-10.6) k/uL RBC (3.80-5.40) m/uL Hgb (11.4-16.0) gm/dL Hct (34.0-46.0) % Neutrophils # (1.3-7.7) k/uL APTT 51.6 H (22.0-30.0) sec ABG pH 7.47 H (7.35-7.45) ABG pCO2 32 L (35-45) mmHg ABG pO2 128 H (83-108) mmHg ABG O2 Saturation 97.9 H (94-97) % Sodium (137-145) mmol/L Chloride (98-107) mmol/L BUN (7-17) mg/dL Creatinine (0.52-1.04) mg/dL Glucose (74-99) mg/dL POC Glucose (mg/dL) 214 H (75-99) mg/dL Calcium (8.4-10.2) mg/dL Phosphorus (2.5-4.5) mg/dL 09/01/17 Range/Units 08:29 WBC (3.8-10.6) k/uL RBC (3.80-5.40) m/uL Hgb (11.4-16.0) gm/dL Hct (34.0-46.0) % Neutrophils # (1.3-7.7) k/uL APTT (22.0-30.0) sec ABG pH (7.35-7.45) ABG pCO2 (35-45) mmHg ABG pO2 (83-108) mmHg ABG O2 Saturation (94-97) % Sodium (137-145) mmol/L Chloride (98-107) mmol/L BUN (7-17) mg/dL Creatinine (0.52-1.04) mg/dL Glucose (74-99) mg/dL POC Glucose (mg/dL) 166 H (75-99) mg/dL Calcium (8.4-10.2) mg/dL Phosphorus (2.5-4.5) mg/dL Microbiology - Last 24 Hours (Table) 08/30/17 03:57 Gram Stain - Final Sputum Sputum Culture - Final 08/27/17 14:10 Gram Stain - Preliminary Peritoneal Fluid Body Fluid Culture - Preliminary Enterococcus faecalis 08/27/17 11:00 Blood Culture - Preliminary Blood No Growth after 96 hours Assessment and Plan Assessment: 1 acute hypoxic respiratory failure, multifactorial, The patient has a component of fluid overload and pulmonary vessel congestion small bilateral pleural effusion. The severe metabolic acidosis that contributed to respiratory failure has subsided. 2 acute hypotension , currently on 4 mics of norepinephrine for blood pressure support. The patient was found to have cardiomyopathy with severe impairment of the LV function with an ejection fraction of 25% in addition to an acute non- ST segment elevation myocardial infarction. 3 acute non-STEMI NE troponin peaked at 7, still on a combination of aspirin and IV heparin 4 coronary artery disease with previous coronary artery bypass surgery 5 End stage renal disease on hemodialysis via peritoneal dialysis. The patient has been on PD since November 2016. 6 acute hyperkalemia secondary to severe metabolic acidosis, resolved 7 severe anion gap metabolic acidosis, concern for lactic acidosis secondary to sepsis/hypotension, recovered 8 history of obesity status post gastric bypass surgery 9 diabetes mellitus recovered following bariatric surgery and the patient is currently on no diabetic medications 10 hypertension, history of 11 hypothyroidism, chemically still hypothyroid with a TSH of more than 100 and a free T4 of 0.74 and the patient will be kept on IV Synthroid. 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 15 seeking kidney transplantation to [facility] 16 chronic anemia, normocytic 17 hypoproteinemia and hypoalbuminemia 18 hypothermia, recovered 19 severe peripheral vascular disease 20 acute abdominal sepsis is not entirely ruled out, the peritoneal fluid is positive for Enterococcus faecalis, vancomycin susceptible. Recommendation: Continue all present meds, continue mechanical ventilation, cut down the FiO2 as tolerated, patient is presently on 40% FiO2, and PEEP of 5. Noted some overall improvement on the chest x-ray, but the effusion on the right side is a bit concerning, may have to be drained. Ultrasound was ordered , may consider thoracentesis today. We'll discuss with her family her overall condition, I was able to discuss her condition with the team cdl driver on the case. Critical care time is 35 minutes. Time with Patient: Greater than 30
--- NOTE | 2017-09-01 11:11 | US ---
EXAMINATION TYPE: US chest DATE OF EXAM: 09/01/2017 COMPARISON: NONE CLINICAL HISTORY: Markings for thoracentesis by pulmonary staff. EXAM MEASUREMENTS: Left Pleural Effusion fluid pocket: 8.7 cm Left skin to fluid thickness: 2.3 cm Right Pleural Effusion fluid pocket: 3.4 cm Right skin to fluid thickness: 8 cm Right side marked for possible thoracentesis outside the dept. Left side marked for possible thoracentesis outside the dept. Pulmonologists are able to review the images in the patient?s EMR. IMPRESSIONS: Bilateral pleural effusions.
[2017-09-01 12:44] LABS: Glucose,Whole Blood 220 mg/dL (75-99)
--- NOTE | 2017-09-01 13:38 | US ---
EXAMINATION TYPE: US chest DATE OF EXAM: 09/01/2017 COMPARISON: US CLINICAL HISTORY: PLEURAL EFFUSION. Pleural effusion, second look EXAM MEASUREMENTS: Right Pleural Effusion fluid pocket: 3.8 cm Right skin to fluid thickness: 2.3 cm Left Pleural Effusion fluid pocket: 8.3 cm Left skin to fluid thickness: 3.9 cm Left side marked for possible thoracentesis outside the dept. Second look US confirms larger pleural effusion on left. Pulmonologists are able to review the images in the patient?s EMR. IMPRESSIONS: Bilateral pleural effusions greater on the left with the largest pocket noted to measure 8.3 cm
--- NOTE | 2017-09-01 14:17 | P.PN ---
Subjective Progress Note Date: 09/01/17 Progress note being dictated for Dr. Barrett 65-year-old the being treated for acute respiratory failure secondary to sepsis source unclear possibly lower limb ulcerations or paratonia him. Patient remains intubated patient is presently on 40% FiO2 PEEP of 5 and tidal volume of 500 continues to have metabolic acidosis which improved compared to yesterday. Patient is undergoing peritoneal dialysis remains on epinephrine, propofol drip, IV heparin for possible non-ST elevation myocardial infarction, on antibiotics meropenem and vancomycin with the so for negative cultures, very minimal urine output, hypotension improved, possibility of a superimposed cardiac sharp with bilateral pleural effusions 08/29/2017 Patient is off sedation undergoing weaning trials, on 1 g of epinephrine. Patient is awake and arousable intubated on BiPAP through ventilator 08/30/17 reintubated last night with FiO2 at 70%/+8 of PEEP. Chest x-ray reporting increasing lung opacity's, worsening edema and or infiltrates. Maintained on DIprova, heparin and Levophed drips. Troponin up to 9.5. Minimal urine output. Peritoneal dialysis cultures reporting enterococcus. Potential hemodialysis being discussed. Telemetry sinus rhythm. 08/31/17 remains vent dependent. CXR and ABGs improving. FiO2 decreased to 50% and PEEP decreased down to 5%. No weaning trials, yet. Tube feedings being initiated. Bicarb 22. PD changed to every 4 hours with solution adjusted as per nephrology. Levophed down to 7 mics. Maintained on Merrem and vancomycin, peritoneal cultures positive for enterococcus D, final results pending. 09/01/17 continues on antibiotics for enterococcus faecalis peritonitis. remains vent dependent, FiO2 decreased to 40%/+5 of PEEP. ABGs improved. Maintain on heparin, diprovan and Levophed drips. Prior chest ultrasound reported bilateral pleural effusions greater on the left with largest pocket 8.3 cm. Chest x-ray reporting bilateral consolidation, pleural effusions, small amount of subcutaneous emphysema along right lateral chest wall. Chest ultrasound repeated with both left and right-sided marked for possible thoracentesis. Paroximal A. fib, currently sinus rhythm. Pulmonary discussing possible weaning parameters. Tube feeds at goal with minimal to no residuals. Objective - Vital Signs Vital signs: Vital Signs Temp 99.6 F 09/01/17 12:00 Pulse 93 09/01/17 12:30 Resp 17 09/01/17 12:30 BP 116/56 09/01/17 09:00 Pulse Ox 99 09/01/17 12:30 Intake & Output 08/31/17 09/01/17 09/01/17 18:59 06:59 18:59 Intake Total 435.182 529.447 689.646 Output Total 135 275 85 Balance 300.182 254.447 604.646 Weight 76.2 kg 74.6 kg 74.6 kg Intake: IV 160 120 370 Meropenem 500 mg In 50 50 Sodium Chloride 0.9% 50 ml @ 100 mls/hr IVPB Q24HR [facility] Rx#:[id number] Vancomycin 1,250 mg In 250 Sodium Chloride 0.9% 250 ml @ 125 mls/hr IVPB ONCE ONE Rx#:[id number] sodium chloride 0.9% 1, 110 120 70 000 ml KVO Intake, IV Titration 225.182 139.447 129.646 Amount Heparin Sodium,Porcine/ 76.057 D5w Pmx 25,000 unit In Dextrose/Water 1 500ml. bag @ 12 UNITS/KG/HR 13. 49 mls/hr IV .Q24H [facility] Rx #:[id number] Norepinephrin 16 mg-0.9% 49.125 70.034 35.149 Ns Pmx 16 mg In 250 ml @ Titrate IV .Q0M [facility] Rx#: [id number] Propofol 1,000 mg In 100 69.413 94.497 Empty Bag 1 bag @ Titrate IV .Q0M [facility] Rx#: [id number] Tube Feeding 50 180 160 Other 90 30 Output: Urine 135 275 85 Other: Voiding Method Indwelling Catheter Indwelling Catheter Indwelling Catheter # Bowel Movements 1 ABP, PAP, CO, CI - Last Documented Arterial Blood Pressure 119/54 - Exam GENERAL: Intubated and sedated on Diprovan HEENT: Pupils are round and equally reacting to light. EOMI. No scleral icterus. No conjunctival pallor. Normocephalic, atraumatic. No pharyngeal erythema. No thyromegaly. CARDIOVASCULAR: S1 and S2 present. No murmurs, rubs, or gallops. Tachycardic PULMONARY: Good air entry treatment with mechanical ventilator . Scattered rhonchi and bibasilar crackles are appreciated ABDOMEN: Soft, nontender, nondistended, normoactive bowel sounds. No palpable organomegaly. PD catheter present. MUSCULOSKELETAL: No joint swelling or deformity. EXTREMITIES: Multiple ulcerations in bilateral lower limbs and wounds please refer to nursing documentation for further details, markedly diminished bilateral dorsalis pedis pulses. Toes of bilateral feet dark purple. Black, Necrotic digits on bilateral hands involving right fourth finger and left third and fourth fingers.Stage II Right Buttock-nondraining. NEUROLOGICAL: Currently unable to assess, sedated SKIN: No rashes. Microbiology 08/27/17 14:10 Peritoneal Fluid Gram Stain - Final 08/27/17 14:10 Peritoneal Fluid Body Fluid Culture - Final Enterococcus faecalis 08/27/17 11:00 Blood Blood Culture - Preliminary No Growth after 120 hours 08/30/17 03:57 Sputum Gram Stain - Final 08/30/17 03:57 Sputum Sputum Culture - Final 08/27/17 23:20 Sputum Gram Stain - Final 08/27/17 23:20 Sputum Sputum Culture - Final 08/27/17 20:00 Urine,Catheterized Urine Culture - Final - Labs CBC & Chem 7: 09/01/17 04:00 09/01/17 04:00 Labs: Abnormal Lab Results - Last 24 Hours (Table) 08/31/17 08/31/17 09/01/17 Range/Units 17:53 23:52 04:00 WBC 22.2 H (3.8-10.6) k/uL RBC 3.05 L (3.80-5.40) m/uL Hgb 8.8 L (11.4-16.0) gm/dL Hct 27.1 L (34.0-46.0) % Neutrophils # 19.4 H (1.3-7.7) k/uL APTT (22.0-30.0) sec ABG pH (7.35-7.45) ABG pCO2 (35-45) mmHg ABG pO2 (83-108) mmHg ABG O2 Saturation (94-97) % Sodium (137-145) mmol/L Chloride (98-107) mmol/L BUN (7-17) mg/dL Creatinine (0.52-1.04) mg/dL Glucose (74-99) mg/dL POC Glucose (mg/dL) 129 H 196 H (75-99) mg/dL Calcium (8.4-10.2) mg/dL Phosphorus (2.5-4.5) mg/dL 09/01/17 09/01/17 09/01/17 Range/Units 04:00 05:45 06:01 WBC (3.8-10.6) k/uL RBC (3.80-5.40) m/uL Hgb (11.4-16.0) gm/dL Hct (34.0-46.0) % Neutrophils # (1.3-7.7) k/uL APTT 51.6 H (22.0-30.0) sec ABG pH (7.35-7.45) ABG pCO2 (35-45) mmHg ABG pO2 (83-108) mmHg ABG O2 Saturation (94-97) % Sodium 129 L (137-145) mmol/L Chloride 95 L (98-107) mmol/L BUN 60 H (7-17) mg/dL Creatinine 3.80 H (0.52-1.04) mg/dL Glucose 186 H (74-99) mg/dL POC Glucose (mg/dL) 214 H (75-99) mg/dL Calcium 6.0 L* (8.4-10.2) mg/dL Phosphorus 7.8 H (2.5-4.5) mg/dL 09/01/17 09/01/17 09/01/17 Range/Units 07:06 08:29 12:42 WBC (3.8-10.6) k/uL RBC (3.80-5.40) m/uL Hgb (11.4-16.0) gm/dL Hct (34.0-46.0) % Neutrophils # (1.3-7.7) k/uL APTT (22.0-30.0) sec ABG pH 7.47 H (7.35-7.45) ABG pCO2 32 L (35-45) mmHg ABG pO2 128 H (83-108) mmHg ABG O2 Saturation 97.9 H (94-97) % Sodium (137-145) mmol/L Chloride (98-107) mmol/L BUN (7-17) mg/dL Creatinine (0.52-1.04) mg/dL Glucose (74-99) mg/dL POC Glucose (mg/dL) 166 H 220 H (75-99) mg/dL Calcium (8.4-10.2) mg/dL Phosphorus (2.5-4.5) mg/dL Microbiology - Last 24 Hours (Table) 08/27/17 14:10 Gram Stain - Final Peritoneal Fluid Body Fluid Culture - Final Enterococcus faecalis 08/27/17 11:00 Blood Culture - Preliminary Blood No Growth after 120 hours 08/30/17 03:57 Gram Stain - Final Sputum Sputum Culture - Final Assessment and Plan Assessment: -Acute abdominal sepsis secondary to peritonitis,possibly related to PD catheter -though initial white count 170 with repeat PD fluid cell count 35, peritoneal fluid positive for enterococcus faecialis. -Septic shock with possibility of cardiogenic shock secondary to acute NSTEMI. Severe cardiomyopathy ejection fraction of around 25%. -Acute hypotension secondary to the above, pressor dependent -Acute Hypoxic respiratory failure, mechanical ventilator-dependent, re- intubated -Congestive heart failure systolic dysfunction unsure whether it's chronic and acute, in acute exacerbation -Acute hypoxic respiratory failure secondary to sepsis, severe metabolic acidosis resolved, -End-stage renal disease on peritoneal dialysis -Hyperkalemia secondary to severe metabolic acidosis, subsided along with end- stage renal disease, potential hemodialysis -Severe peripheral vascular disease with dry gangrene of fingers in both hands as mentioned above -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 Plan: Continue on current medication regime ,monitoring and symptomatic treatment. Antibiotics/Wound Care as per ID. potential thoracentesis as per pulmonary. Follow closely with multiple consults. Patient's overall prognosis is poor. The impression and plan of care has been dictated as directed. : I performed a history and examination of this patient, discussed the same with the dictator. I agree with the dictator's note ,documented as a scribe. Any additional findings or plans will be noted.
[2017-09-01] MEDS: NOREPINEPHRIN 16 MG-0.9%NS PMX 16 MG/250 ML ML IV SCH (15:57)
--- NOTE | 2017-09-01 17:22 | PN ---
PROGRESS NOTE Patient is seen for followup for end-stage renal disease. She currently remains on the vent. Patient has a pleural effusion on a chest x-ray this morning. She has had good UF of about 3-400 mL with every exchange. Currently we are alternating 2.5% solution with 4.25% solutions. Levophed is down to about 4 mcg. Patient remains on FiO2 at 40%. EXAMINATION: Blood pressure this morning was 113/52, heart rate of about 90 per minute. Patient is afebrile. Examination of the heart S1, S2. Examination of the lungs bilateral breath sounds are heard. Abdomen is soft, nontender. Examination of the lower extremities shows 1+ edema. There is edema. Significant peroneal edema noted as well. ORIENTAL RUG STRETCHER exam cannot be performed. LAB: Show sodium of 129, potassium 3.5, chloride 95, BUN 60, serum creatinine 3.8, calcium 6.0, phosphorus 7.8, hemoglobin 8.8 g/dL. ASSESSMENT: 1. End-stage renal disease, maintained on peritoneal dialysis, currently with 2.5% solution alternating with 4.25% solution every 4 hours. The patient has had UF of about 3-400 mL with almost all of her exchanges, which is a significant improvement. I will continue with the current PD exchanges for now. The patient is not significantly hypotensive and we will hold off on switching to hemodialysis for now. 2. CAPD peritonitis with fluid culture growing Enterococcus faecalis. Down the road the PD catheter will likely need to be discontinued. 3. Vent dependent respiratory failure. 4. Sepsis and hypotension maintained on antibiotics and improved. 5. Anemia of chronic disease maintained on Aranesp, iron replete. 6. Severe hypothyroidism with TSH of more than 100, currently on Synthroid. 7. Gangrene in the right middle finger and the 2nd and 3rd and 4th digits on the left hand, which is currently stable. PLAN: 1. Increase midodrine and discontinue the free water down feeding tube given the hyponatremia. 2. Continue with antibiotics. 3. Add Renvela with meals. 4. Repeat labs in a.m. 5. I will hold off on switching to hemodialysis for now. MMODL / IJN: [id number] /
[2017-09-01 17:36] LABS: Glucose,Whole Blood 302 mg/dL (75-99)
[2017-09-01] MEDS: HEPARIN SODIUM,PORCINE/D5W PMX 25,000 UNIT in DEXTROSE/WATER 1 500ML.BAG IV SCH (20:08)
--- NOTE | 2017-09-01 22:33 | P.PN ---
Subjective Progress Note Date: 09/01/17 67-year-old female presented visit care unit where she was intubated sedated and mechanically ventilated receiving her CAPD. Is related from the available data that she receives her to [facility] and has been cared for in [facility] in [place] where she's been evaluated for renal transplantation from a living related donor, her daughter. The patient has a long-standing history of diabetes mellitus type 2 and has end- stage renal disease related to this and normally is cared for with. Dialysis via the nighttime cycler, and has been doing this well in November 2016. Patient has known severe peripheral vascular disease and did apparently have a left upper extremity AV fistula that was placed however did not function well and with the what appears to be steal syndrome is without evidence the dry gangrenous third and fourth fingers of the left hand. Is also developed a dry gangrenous changes to the right hand middle finger also. consider gastric bypass she remains with severe obesity although apparently it has improved and she has underlying cardiovascular disease and severe peripheral vascular disease. the patient has evidence of a peritoneal dialysis sample with evidence of enterococcus and with at the infectious diseases consultation was requested. 08/31/2017 patient remains in intensive care unit intubated sedated and mechanically ventilated with decreasing doses of vasopressor therapy, epinephrine has been discontinued. The patient has been tolerating her CAPD well and is now getting into some negative balance. Nephrology has evaluated is holding on hemodialysis as long as CAPD continues to be effective. Laboratory has finalize the culture as enterococcus, not VRE, from the peritoneal fluid. Blood culture negative so far sputum culture is pending. 09/01/2017 patient is had some further improvement. Her sedation is being held with contemplation for further weaning tomorrow. She's not having fever. Vasopressor therapy has been weaned. The peritoneal dialysis is allowing some improvement of her volume overload and her creatinine is improving Objective - Vital Signs Vital signs: Vital Signs Temp 100 F H 09/01/17 21:00 Pulse 107 H 09/01/17 21:00 Resp 17 09/01/17 21:00 BP 113/57 09/01/17 21:00 Pulse Ox 100 09/01/17 21:00 Intake & Output 09/01/17 09/01/17 09/02/17 06:59 18:59 06:59 Intake Total 152.822 0722.646 582.303 Output Total 275 142 35 Balance 791.904 7459.646 547.303 Weight 74.6 kg 74.6 kg Intake: IV 120 420 40 Meropenem 500 mg In 50 Sodium Chloride 0.9% 50 ml @ 100 mls/hr IVPB Q24HR [facility] Rx#:[id number] Vancomycin 1,250 mg In 250 Sodium Chloride 0.9% 250 ml @ 125 mls/hr IVPB ONCE ONE Rx#:[id number] sodium chloride 0.9% 1, 120 120 40 000 ml KVO Intake, IV Titration 139.447 129.646 362.303 Amount Heparin Sodium,Porcine/ 362.303 D5w Pmx 25,000 unit In Dextrose/Water 1 500ml. bag @ 12 UNITS/KG/HR 13. 49 mls/hr IV .Q24H [facility] Rx #:[id number] Norepinephrin 16 mg-0.9% 70.034 35.149 Ns Pmx 16 mg In 250 ml @ Titrate IV .Q0M [facility] Rx#: [id number] Propofol 1,000 mg In 69.413 94.497 Empty Bag 1 bag @ Titrate IV .Q0M [facility] Rx#: [id number] Tube Feeding 180 460 180 Other 90 300 Output: Urine 275 142 35 Other: Voiding Method Indwelling Catheter Indwelling Catheter ABP, PAP, CO, CI - Last Documented Arterial Blood Pressure 102/55 - Exam 67-year-old female who appears older than her stated age, is intubated sedated and mechanically ventilated at this time HEENT: Anicteric conjunctiva are pink and moist nasal mucosa grossly intact without significant lesions, there is no thrush.poor dentition Neck: The neck is supple without significant lymphadenopathy or thyromegaly. Lungs: there is symmetrical air entry with expiratory wheezes that are scattered no herber bronchial sounds are heard Heart: irregular with audible S1 and S2 soft S4 no distinct murmur click or rub PMI was nondisplaced with urethral Abdomen: Positive bowel sounds soft nonrigid without palpable masses or organomegaly. Extremities: the right upper extremities shows evidence of the third finger distal mummification, similar has occurred third and fourth fingers to the left hand. The lower extremities are cool but not frankly cold no significant open ulcerations are seen been on the current vasopressor therapy the toes are dusky. Neuro: mechanically ventilated, less sedated is having some response to stimuli - Labs CBC & Chem 7: 09/01/17 04:00 09/01/17 04:00 Labs: Abnormal Lab Results - Last 24 Hours (Table) 08/31/17 09/01/17 09/01/17 Range/Units 23:52 04:00 04:00 WBC 22.2 H (3.8-10.6) k/uL RBC 3.05 L (3.80-5.40) m/uL Hgb 8.8 L (11.4-16.0) gm/dL Hct 27.1 L (34.0-46.0) % Neutrophils # 19.4 H (1.3-7.7) k/uL APTT (22.0-30.0) sec ABG pH (7.35-7.45) ABG pCO2 (35-45) mmHg ABG pO2 (83-108) mmHg ABG O2 Saturation (94-97) % Sodium 129 L (137-145) mmol/L Chloride 95 L (98-107) mmol/L BUN 60 H (7-17) mg/dL Creatinine 3.80 H (0.52-1.04) mg/dL Glucose 186 H (74-99) mg/dL POC Glucose (mg/dL) 196 H (75-99) mg/dL Calcium 6.0 L* (8.4-10.2) mg/dL Phosphorus 7.8 H (2.5-4.5) mg/dL 09/01/17 09/01/17 09/01/17 Range/Units 05:45 06:01 07:06 WBC (3.8-10.6) k/uL RBC (3.80-5.40) m/uL Hgb (11.4-16.0) gm/dL Hct (34.0-46.0) % Neutrophils # (1.3-7.7) k/uL APTT 51.6 H (22.0-30.0) sec ABG pH 7.47 H (7.35-7.45) ABG pCO2 32 L (35-45) mmHg ABG pO2 128 H (83-108) mmHg ABG O2 Saturation 97.9 H (94-97) % Sodium (137-145) mmol/L Chloride (98-107) mmol/L BUN (7-17) mg/dL Creatinine (0.52-1.04) mg/dL Glucose (74-99) mg/dL POC Glucose (mg/dL) 214 H (75-99) mg/dL Calcium (8.4-10.2) mg/dL Phosphorus (2.5-4.5) mg/dL 09/01/17 09/01/17 09/01/17 Range/Units 08:29 12:42 17:33 WBC (3.8-10.6) k/uL RBC (3.80-5.40) m/uL Hgb (11.4-16.0) gm/dL Hct (34.0-46.0) % Neutrophils # (1.3-7.7) k/uL APTT (22.0-30.0) sec ABG pH (7.35-7.45) ABG pCO2 (35-45) mmHg ABG pO2 (83-108) mmHg ABG O2 Saturation (94-97) % Sodium (137-145) mmol/L Chloride (98-107) mmol/L BUN (7-17) mg/dL Creatinine (0.52-1.04) mg/dL Glucose (74-99) mg/dL POC Glucose (mg/dL) 166 H 220 H 302 H (75-99) mg/dL Calcium (8.4-10.2) mg/dL Phosphorus (2.5-4.5) mg/dL Microbiology - Last 24 Hours (Table) 08/27/17 14:10 Gram Stain - Final Peritoneal Fluid Body Fluid Culture - Final Enterococcus faecalis 08/27/17 11:00 Blood Culture - Preliminary Blood No Growth after 120 hours 08/30/17 03:57 Gram Stain - Final Sputum Sputum Culture - Final Laboratory Results WBC 22.2 k/uL (3.8-10.6) H 09/01/17 04:00 RBC 3.05 m/uL (3.80-5.40) L 09/01/17 04:00 Hgb 8.8 gm/dL (11.4-16.0) L 09/01/17 04:00 Hct 27.1 % (34.0-46.0) L 09/01/17 04:00 MCV 88.8 fL (80.0-100.0) 09/01/17 04:00 MCH 28.9 pg (25.0-35.0) 09/01/17 04:00 MCHC 32.5 g/dL (31.0-37.0) 09/01/17 04:00 RDW 14.5 % (11.5-15.5) 09/01/17 04:00 Plt Count 341 k/uL (150-450) 09/01/17 04:00 Neutrophils % 87 % 09/01/17 04:00 Lymphocytes % 7 % 09/01/17 04:00 Monocytes % 2 % 09/01/17 04:00 Eosinophils % 3 % 09/01/17 04:00 Basophils % 0 % 09/01/17 04:00 Neutrophils # 19.4 k/uL (1.3-7.7) H 09/01/17 04:00 Lymphocytes # 1.6 k/uL (1.0-4.8) 09/01/17 04:00 Monocytes # 0.5 k/uL (0-1.0) 09/01/17 04:00 Eosinophils # 0.6 k/uL (0-0.7) 09/01/17 04:00 Basophils # 0.0 k/uL (0-0.2) 09/01/17 04:00 Hypochromasia Slight 08/27/17 10:35 Anisocytosis Slight 08/28/17 04:00 PT 13.7 sec (9.0-12.0) H 08/28/17 04:00 INR 1.5 (<1.2) H 08/28/17 04:00 APTT 51.6 sec (22.0-30.0) H 09/01/17 05:45 D-Dimer 5.03 mg/L FEU (<0.60) H 08/27/17 04:44 Sample Site [place] 09/01/17 07:06 ABG pH 7.47 (7.35-7.45) H 09/01/17 07:06 ABG pCO2 32 mmHg (35-45) L 09/01/17 07:06 ABG pO2 128 mmHg (83-108) H 09/01/17 07:06 ABG HCO3 23 mmol/L (21-25) 09/01/17 07:06 ABG Total CO2 24 mmol/L (19-24) 09/01/17 07:06 ABG O2 Saturation 97.9 % (94-97) H 09/01/17 07:06 ABG Base Excess -0.7 mmol/L 09/01/17 07:06 Rhett Test Yes 09/01/17 07:06 ABG Lactic Acid 4.2 mmol/L (0.5-1.6) H* 08/27/17 16:01 FiO2 50 % 09/01/17 07:06 Sodium 129 mmol/L (137-145) L 09/01/17 04:00 Potassium 3.5 mmol/L (3.5-5.1) 09/01/17 04:00 Chloride 95 mmol/L (98-107) L 09/01/17 04:00 Carbon Dioxide 22 mmol/L (22-30) 09/01/17 04:00 Anion Gap 12 mmol/L 09/01/17 04:00 BUN 60 mg/dL (7-17) H 09/01/17 04:00 Creatinine 3.80 mg/dL (0.52-1.04) H 09/01/17 04:00 Est GFR (CKD-EPI)AfAm 14 (>60 ml/min/1.73 sqM) 09/01/17 04:00 Est GFR (CKD-EPI)NonAf 12 (>60 ml/min/1.73 sqM) 09/01/17 04:00 Glucose 186 mg/dL (74-99) H 09/01/17 04:00 POC Glucose (mg/dL) 302 mg/dL (75-99) H 09/01/17 17:33 POC Glu [place] ID Geronimo Johns 09/01/17 17:[address] Glu mg/dL 103 08/27/17 10:35 Hemoglobin A1c 5.2 % (4.0-6.0) 08/27/17 10:35 Lactic Ac Sepsis Rflx Y 08/27/17 11:19 Plasma Lactic Acid [place] mmol/L (0.7-2.0) 08/27/17 10:35 Calcium 6.0 mg/dL (8.4-10.2) L* 09/01/17 04:00 Phosphorus 7.8 mg/dL (2.5-4.5) H 09/01/17 04:00 Magnesium 1.7 mg/dL (1.6-2.3) 09/01/17 04:00 Total Bilirubin 0.4 mg/dL (0.2-1.3) 08/27/17 04:44 AST 35 U/L (14-36) 08/27/17 04:44 ALT 23 U/L (9-52) 08/27/17 04:44 Alkaline Phosphatase 66 U/L (38-126) 08/27/17 04:44 Total Creatine Kinase 292 U/L (30-135) H 08/30/17 04:00 CK-MB (CK-2) 9.5 ng/mL (0.0-2.4) H* 08/30/17 04:00 CK-MB (CK-2) Rel Index 3.3 08/30/17 04:00 Troponin I 9.540 ng/mL (0.000-0.034) H* 08/30/17 04:00 Total Protein 4.8 g/dL (6.3-8.2) L 08/27/17 04:44 Albumin 2.3 g/dL (3.5-5.0) L 08/27/17 04:44 Triglycerides 62 mg/dL (<150) 08/28/17 04:00 Cholesterol 104 mg/dL (<200) 08/28/17 04:00 LDL Cholesterol, Calc 41 mg/dL (0-99) 08/28/17 04:00 HDL Cholesterol 51 mg/dL (40-60) 08/28/17 04:00 TSH >100.000 mIU/L (0.465-4.680) H 08/27/17 10:35 Free T4 0.74 ng/dL (0.78-2.19) L 08/27/17 10:35 Urine Color Yellow 08/27/17 20:00 Urine Appearance Cloudy (Clear) H 08/27/17 20:00 Urine pH 5.0 (5.0-8.0) 08/27/17 20:00 Ur Specific [place] 1.020 (1.001-1.035) 08/27/17 20:00 Urine Protein 1+ (Negative) H 08/27/17 20:00 Urine Glucose (UA) 3+ (Negative) H 08/27/17 20:00 Urine Ketones Negative (Negative) 08/27/17 20:00 Urine Blood Small (Negative) H 08/27/17 20:00 Urine Nitrite Negative (Negative) 08/27/17 20:00 Urine Bilirubin Negative (Negative) 08/27/17 20:00 Urine Urobilinogen <2.0 mg/dL (<2.0) 08/27/17 20:00 Ur Leukocyte Esterase Small (Negative) H 08/27/17 20:00 Urine RBC 1 /hpf (0-5) 08/27/17 20:00 Urine WBC 12 /hpf (0-5) H 08/27/17 20:00 Ur Squamous Epith Cells 11 /hpf (0-4) H 08/27/17 20:00 Amorphous Sediment Few /hpf (None) H 08/27/17 20:00 Hyaline Casts 3 /lpf (0-2) H 08/27/17 20:00 Urine Mucus Rare /hpf (None) H 08/27/17 20:00 Fluid Source Peritoneal 08/29/17 14:09 Fluid Color Colorless 08/29/17 14:09 Fluid Appearance Clear 08/29/17 14:09 Fluid RBC 3 /uL 08/29/17 14:09 Fluid Nucleated Cells 35 /uL 08/29/17 14:09 Fluid Polynuclear WBCs 81 % 08/29/17 14:09 Fluid Mononuclear WBCs 19 % 08/29/17 14:09 Random Vancomycin 17.9 ug/mL 09/01/17 04:00 C. difficile (EIA) Intrp Negative (Negative) 09/01/17 13:35 Microbiology 08/27/17 14:10 Peritoneal Fluid Gram Stain - Final 08/27/17 14:10 Peritoneal Fluid Body Fluid Culture - Final Enterococcus faecalis 08/27/17 11:00 Blood Blood Culture - Preliminary No Growth after 120 hours 08/30/17 03:57 Sputum Gram Stain - Final 08/30/17 03:57 Sputum Sputum Culture - Final 08/27/17 23:20 Sputum Gram Stain - Final 08/27/17 23:20 Sputum Sputum Culture - Final 08/27/17 20:00 Urine,Catheterized Urine Culture - Final Assessment and Plan (1) Respiratory failure Current Visit: Yes Status: Acute Code(s): J96.90 - RESPIRATORY FAILURE, UNSP , UNSP W HYPOXIA OR HYPERCAPNIA SNOMED Code(s): 815112506 (2) Renal failure Current Visit: Yes Status: Acute Code(s): N19 - UNSPECIFIED KIDNEY FAILURE SNOMED Code(s): 49588939 (3) Bacterial infection associated with peritoneal dialysis catheter Narrative/Plan: 67-year-old female who is in the intensive care unit she is intubated sedated and mechanically ventilated due to her significant sepsis and hypotension at this time. There is concerns that she has an enterococcal peritonitis related to her CAPD. She's been evaluated by nephrology as well as surgery. At this time antimicrobial therapy has been initiated with vancomycin. Potentially may receive vancomycin in the dialysate if nephrology believes it is a potential. Follow-up sample should be obtained to ensure that there some improvement. there is discussion about the potential for hemodialysis but she is too hypotensive at this point in time. there is no data to suggest that she has a history of VRE will continue vancomycin therapy for now. Cultures for further direct antibiotic therapy. She is receiving meropenem also for now until further data is available. significant leukocytosis occurring directly related to her peritonitis. 08/31/2017 the patient has had similar treatment. Her significant acidosis is improved and is tolerating the CAPD somewhat better actually getting some negative fluid balance. As far as the peritonitis and sepsis appears to be somewhat better today. She is requiring less vasopressor therapy. Leukocytosis remains elevated at 23.8. Of note her creatinine has come down to 4.29 from a peak of 7.9, revealing that the CAPD is showing some affective nature. At this time will continue the antibiotic therapy with vancomycin per pharmacy dosing. Meropenem is being utilize also for now pending sputum culture results, once this is clear that there is not significant gram-negative pneumonia the meropenem can be streamlined. The patient sounds are present and they are updated on her situation. The opti foam will be applied to the stage III pressure ulceration to her buttocks that is present on admission, it was unstageable at admission. 09/01/2017 patient has had some improvement. There is contemplation for further weaning trials in the morning if her mentation continues to improve. She is off vasopressor therapy and with the peritoneal dialysis her creatinine is starting to improve. We'll expect as her sepsis improves and the uremia improves her mentation should further improve. We'll continue vancomycin at this time. If other cultures remain negative we'll be able to discontinue the meropenem tomorrow. Continue treatment for the stage III pressure ulceration with the optifoam. Current Visit: Yes Status: Acute Code(s): T85.71XA - INFECT/INFLM REACTION DUE TO PERITON DIALYSIS CATHETER, INIT; A49.9 - BACTERIAL INFECTION, UNSPECIFIED SNOMED Code(s): 281954221
[2017-09-02] MEDS: DIALYSIS (PERIT 4.25%) 2000 ML 85 G/2,000 ML BAG INTRAPERIT SCH ×3 (00:34→16:28)
[2017-09-02 00:51] LABS: Glucose,Whole Blood 227 mg/dL (75-99)
[2017-09-02] MEDS: INSULIN ASPART 100 UNIT/ML 1 ML 10 ML VIAL SQ SCH ×4 (00:52→17:35)
[2017-09-02] MEDS: MORPHINE SULFATE 2 MG/ML SYRINGE IVP PRN (03:42)
[2017-09-02 05:01] LABS: Basophils % (A) 0 %; Eosinophils # (A) 0.4 k/uL (0-0.7); Eosinophils % (A) 3 %; HCT 24.7 % (34.0-46.0); Lymphocytes # (A) 1.1 k/uL (1.0-4.8); Lymphocytes % (A) 8 %; MCH 29.2 pg (25.0-35.0); MCHC 32.4 g/dL (31.0-37.0); MCV 90.1 fL (80.0-100.0); Mean Platelet Volume 7.6; Monocytes # (A) 0.5 k/uL (0-1.0); Monocytes % (A) 3 %; Neutrophils # (A) 11.8 k/uL (1.3-7.7); Neutrophils % (A) 85 %; Platelet Count 251 k/uL (150-450); RBC 2.74 m/uL (3.80-5.40); RDW 14.7 % (11.5-15.5); WBC 13.9 k/uL (3.8-10.6)
[2017-09-02 05:09] LABS: Magnesium 1.7 mg/dL (1.6-2.3); Phosphorus 6.1 mg/dL (2.5-4.5)
[2017-09-02] MEDS: DIALYSIS (PERIT 2.5%) 2,000 ML 50 G/2,000 ML BAG INTRAPERIT SCH ×3 (05:13→20:58)
[2017-09-02 05:23] LABS: Potassium 2.9 mmol/L (3.5-5.1)
[2017-09-02] MEDS ORDERED: POTASSIUM CHLORIDE 20 MEQ in WATER FOR INJECTION 1 100ML.BAG IVPB SCH (06:00)
[2017-09-02 06:56] LABS: Glucose,Whole Blood 243 mg/dL (75-99)
[2017-09-02] MEDS: POTASSIUM CHLORIDE 20 MEQ in SODIUM CHLORIDE 0.9% 100 ML IVPB SCH ×4 (06:59→14:19)
[2017-09-02 07:45] LABS: ABG Base Excess 4.2 mmol/L; ABG HCO3 26 mmol/L (21-25); ABG Oxygen Saturation 97.3 % (94-97); ABG PCO2 27 mmHg (35-45); ABG PO2 88 mmHg (83-108); ABG TCO2 27 mmol/L (19-24)
[2017-09-02] MEDS: IPRATROPIUM-ALBUTEROL 3 ML NEB INHALATION SCH ×4 (07:58→20:13)
--- NOTE | 2017-09-02 08:03 | XR ---
EXAMINATION TYPE: XR chest 1V portable DATE OF EXAM: 09/02/2017 COMPARISON: Prior chest x-ray 09/01/2017 HISTORY: Intubated TECHNIQUE: Single frontal view of the chest is obtained. FINDINGS: Endotracheal tube and NG tube are overlying appropriate position, the side port of the NG tube is above the level of the gastroesophageal junction however. There are overlying cardiac leads. Persistent basilar density noted obscuring the right hemidiaphragm. No evident pneumothorax. Patient is rotated. Patient is post median sternotomy. Heart size may be improved. There is some improvement in aeration in the upper lobes. IMPRESSION: Suspect improvement in volume status, aeration. Persistent right lower lobe atelectasis versus pneumonia and associated effusion versus edema. NG tube as described.
[2017-09-02] MEDS: SEVELAMER 800 MG TAB PO SCH ×3 (08:27→17:16)
[2017-09-02] MEDS: CHLORHEXIDINE GLUCONATE 15 ML CUP MUCOUS MEM SCH ×2 (08:28→20:20)
[2017-09-02] MEDS: LEVOTHYROXINE IVP 100 MCG/5 ML VIAL IV SCH (08:28)
[2017-09-02] MEDS: ASPIRIN 325 MG TAB PO SCH (08:28)
[2017-09-02] MEDS: MIDODRINE 5 MG TAB PO SCH ×2 (08:28→17:16)
[2017-09-02] MEDS: PANTOPRAZOLE 40 MG/10 ML VIAL IVP SCH (08:29)
[2017-09-02] MEDS: METOPROLOL TARTRATE 12.5 MG TAB PO SCH (09:19)
[2017-09-02] MEDS: MEROPENEM 500 MG in SODIUM CHLORIDE 0.9% 50 ML IVPB SCH (09:20)
--- NOTE | 2017-09-02 11:04 | P.PN ---
Subjective Progress Note Date: 09/02/17 Principal diagnosis: Acute hypoxic respiratory failure secondary to congestive heart failure, systolic in nature, abdominal sepsis. Secondary to enterococcus faecalis This is a 67-year-old female patient with multiple medical problems and comorbidities who presented to ED with acute respiratory distress, intubated and placed on a mechanical ventilator and then moved to the intensive care unit. The patient has taken all of her care at [facility]. She has chronic renal failure and she currently has end stage renal disease and she is seeking kidney transportation the patient has been evaluated at [facility] for potential kidney transplant the daughter being her daughter. This patient lives in [place] and she recently moved in with her daughter living in [facility], and for that reason during this current episode the patient was brought in to our hospital. All of the information was obtained is from the daughters at the bedside This patient has developed renal failure, probably related to previous history of diabetes mellitus. She was started on peritoneal dialysis approximately year ago and she does nighttime cycler continuous with a 1.5 fluid exchange. This was started on high-dose in November 2016. Hemodialysis was considered and the patient was about to have a left upper extremity AV fistula. The fistula itself got clotted and the patient developed also ulceration in her digits bilaterally and for that reason this was not pursued. Currently the patient is gangrenous necrotic digits of the middle fingers of the left and the fourth finger on the right, affecting the tips. This was investigated at length at [facility]. The patient underwent a CT angios of the entire chest abdomen pelvis and extremities and she was found to have no significant subclavian axillary or brachial artery narrowing. She was found to have diffuse atherosclerosis with calcification of the bilateral radial and ulnar arteries and mild to moderate narrowing in the areas affecting the wrist. Atherosclerotic changes were also seen in the infrarenal abdominal aortic area which was estimated to be severe. Bilateral iliofemoral atherosclerotic changes were also seen. The patient was told to have small vessel disease and based on the reported history there was no evidence of any embolic phenomena or vasculitis The patient is known to have coronary artery disease and she has undergone pleased bypass surgery. She was morbidly obese and she was diabetic. She has undergone gastric bypass surgery more than 6 years ago and she has lost considerable amount of weight and during this time the patient was taken off as soon as she improved in terms of her blood sugar control and she started having episodes of hypoglycemia. Currently she is off anticoagulation. She also has chronic atrial fibrillation, chronic renal failure and currently she is on peritoneal dialysis, she hasn't complications of hyperkalemia, and she has history of hypertension, hyperlipidemia, hypothyroidism, peripheral vascular disease and previous history of coronary artery disease and myocardial infarction. The patient was at her daughter's home where she was feeling weak. In the sales support consultant hours the patient was found by the daughter collapsed in the bathroom. No reported chest pain or palpitations. No focal neurological deficit. The patient was lethargic and she was arousable and she was able to speak. She was moving all 4 extremities according to the history. No fever. No chills. No cough or sputum production. No nausea, vomiting or abdominal pain. The PD catheter was apparently functional. No skin rashes. Necrotic digits were seen bilaterally and these are dry gangrene. In the ED, the patient was found to be hypotensive postintubation. The patient was started on IV fluids and pressors. The patient was started on epinephrine infusion. She was intubated and blood gas showed severe metabolic acidosis. The chest x-ray shows cardiomegaly and pulmonary vessel congestion. ET tube was in a good location. No consolidation . Meanwhile, the patient's white cell count was at 14.2. The patient had a potassium level of 6.5 was being treated in the emergency department with a combination of Kayexalate, D50 and insulin and bicarb and the patient was severely acidotic with anion gap metabolic acidosis with a gap of 26 and a bicarb level of 5, creatinine of 9.4, and a troponin level of 1.2. EKG is not showing any acute ischemic abnormalities and is showing a normal sinus rhythm with a left bundle-branch block pattern. Subsequent potassium level was 7.1. Waldemar saw the patient in the ICU and we're going to start peritoneal dialysis. Meanwhile the patient is being resuscitated IV fluids. We'll start empiric antibiotic coverage. We'll monitor cardiac enzymes and obtain an echocardiogram. The computed tomography scan of the brain and C-spine showed no evidence of acute fracture and there was no evidence of any acute intracranial hemorrhage. On 08/28/2018 I'm seeing this patient for a follow-up. This is a very complicated case with present it with severe metabolic acidosis, respiratory failure, hyperkalemia and hypotension. The patient is being seen today in a follow-up. The patient remains sedated on a mechanical ventilator. This morning, she doesn't assist-control at the rate of 22, tidal volume 600, FiO2 of 50% and a PEEP of 5. Blood gases showed a component of acute respiratory alkalosis and the pH was at 7.47 with a pCO2 of 27 and pO2 1:30. Based on that , I dropped the tidal volume down to 500 by mouth I also drop the FiO2 down to 40%. Chest x-ray still showing a component of pulmonary vessel congestion and small bilateral pleural effusion. CT angios the chest was done yesterday and showed cardiomegaly and bilateral pleural effusion and pulmonary vascular congestion. He was no evidence of any pulmonary embolism. The patient is only on few mics of the low-fat for hemodynamic support. Troponin peaked at 7 and the patient is still on IV heparin and aspirin.. The patient had an echocardiogram yesterday that showed severe impaired LV function with an ejection fraction of 25-30%. In addition, there was segmental wall motion abnormalities involving the inferior wall and anteroseptal wall septum. The right ventricular pressure was estimated to be 42 mmHg. There was no significant valvular abnormalities. Left atrium was dilated. There was mild aortic stenosis. The patient had cultures sent and the blood culture and the abdominal fluid culture came back all negative. She remains on a combination of vancomycin and meropenem. Afebrile. White cell count is not elevated. Infected has dropped from 17 down to 11.9. Potassium level has also dropped down to 3.7 and the patient has a bicarb level which is up to 17. Calcium level is at 6.4. Phosphorus level is at 8.1. The patient was receiving abdominal PD 4 times a day with a 1.5% solution. Furthermore, the patient was noted to be somewhat hypothyroid with a TSH of 101 100 and a free T4 of 0.74. She was placed on 100 mg of IV Synthroid on a daily basis. Her hypothermia has also recovered. She is on tube feeds for now. Family is at the bedside. On 08/29/2017, I'm seeing this patient for a follow-up. The patient remains intubated on mechanical ventilator. This morning, she did assist-control mode at a rate of 22, tidal volume 500, FiO2 of 40% and a PEEP of 5. The blood gases still showing a component of respiratory alkalosis with a pH of 7.49 and a pCO2 of 32 and pO2 97. Based on this, I dropped the tidal volume down to 450. The patient will be given a sedation holiday again and we'll check weaning parameters and assess his readiness to wean. Upon yesterday's sedation holiday, the patient woke up last and she was able to follow some simple commands. Hemodynamically, the patient is still requiring 2 mics of epinephrine for blood pressure control. The patient is undergoing peritoneal dialysis with several exchanges on a daily basis with her 2.5% solution. The patient has no fever. No chills. Cultures of been negative. She was covered with a combination of Merrem and vancomycin. White cell count is at 17.4. The serum bicarb is up to 21 and there is no hyperkalemia. No other significant abnormalities otherwise for now. Patient was reevaluated today on 08/30/2017, remains on mechanical ventilation, intubated, sedated, remains on relatively high FiO2 100% which I cut down to 70% , and PEEP is at 8. Patient has abnormal chest x-ray showing interstitial edema , I believe the patient has fluid overload although the possibility of noncardiogenic pulmonary edema is not entirely ruled out, but considering the patient's LV dysfunction and considering she has an EF of 25%, this is most likely cardiogenic pulmonary edema in nature. Patient is not making much urine , she is still under peritoneal dialysis, and I believe we are not able to remove significant amount of fluids to improve her pulmonary status. Patient may eventually require hemodialysis. However she is still on a small dose of levo fed, may be able to cut it down and eventually arrange for hemodialysis. Labs were reviewed WBC count is 21.1 hemoglobin is 9.1 ABG showed a pO2 of 87 pCO2 of 34 pH of 7.38. Basic metabolic profile was reviewed continues to have an iron gap of 18 BUN is 67 creatinine 4.60. Chest x-ray as noted above endotracheal tube is intact and in the proper position. Chest x-ray again is consistent with pulmonary edema. Patient was reevaluated today on 08/31/2017, remains on mechanical ventilation, her ventilator settings are tidal volume of 450, assist control rate of 20 FiO2 is 50%, and PEEP is now at 5. Remains on levo fed at 7 mcg/m. Chest x-ray continues to show interstitial edema, and pleural effusions, slight improvement compared to yesterday's chest x-ray. ABG seems to be a lot better today, pO2 was 205 pCO2 29 pH of 7.51. BUN is 65 creatinine 4.29. Electrolytes otherwise are relatively unremarkable. Bicarb is 22. Patient remains on peritoneal dialysis, urine output is less than 10 mL per hour. Final microbiology report is pending, peritoneal fluid was positive for group D enterococcus. Patient remains on vancomycin and Merrem. Changes may be made once we have a final report on the cultures. Patient remains on propofol drip, not quite ready for any weaning trials. Today I will initiate enteral nutrition. Reevaluated today on 09/01/2017, patient remains on mechanical ventilation, ventilator settings are the same, however I was able to cut down the FiO2 to 40 % today. Remains on 4 g of levo fed, chest x-ray is showing worsening right- sided pleural effusion, hence may consider an ultrasound and thoracentesis. Patient is presently on heparin, if thoracentesis is to be done, will hold the heparin for few hours. Oxygenation is improving, and ABG seems to be better today. Hence I have instructed the nurses to wake up the patient, assess her mental status, assess possibly weaning parameters, and even consider a weaning trial today. Ultrasound was ordered, and may even consider thoracentesis. Patient is on propofol, we will hold the propofol and assess mental status today. ABG showed a pO2 of 128 pCO2 of 32 pH of 7.47. Lactulose were reviewed renal profile was reviewed WBC count is 22.2 hemoglobin is 8.8. Discussed with the beef ribber, still the option of hemodialysis is to be considered if the patient does not continue to improve and cannot wean easily. Remains on antibiotics for her Enterococcus faecalis infection/peritonitis. Remains on enteral feeding and is being well-tolerated. Patient was reevaluated today on 09/02/2017, remains on mechanical ventilation, patient is off propofol for the last 24 hours, waking up, but unable to follow simple instructions yet. Opens eyes, but does not show any other responses. Cannot maintain a good eye contact. Chest x-ray has shown a significant improvement. Especially in the left pleural effusion, her gases are excellent, however considering her mental status, the patient is definitely not quite ready to be extubated at this point yet. No plans to do thoracentesis on this patient at this point. ABG showed a pO2 of 88 pCO2 of 27 pH of 7.60, patient is on 40% FiO2, and the same vent settings as noted above including tidal volume of 450, her rate was cut down to 12, and her FiO2 remains at 40% and PEEP is at 5. She is off norepinephrine. I switch the patient to a pressure support of 8 and CPAP, it is well-tolerated, however again considering her mental status him not quite ready to extubate the patient at this point yet. All labs were reviewed. Cultures from the peritoneal fluid were reviewed. Patient remains on vancomycin. Merrem was discontinued. Objective - Vital Signs Vital signs: Vital Signs Temp 100.1 F H 09/02/17 08:00 Pulse 103 H 09/02/17 09:00 Resp 17 09/02/17 09:00 BP 112/57 09/02/17 05:00 Pulse Ox 100 09/02/17 09:00 Intake & Output 09/01/17 09/02/17 09/02/17 18:59 06:59 18:59 Intake Total 1309.646 848.637 210 Output Total 142 130 20 Balance 1167.646 718.637 190 Weight 74.6 kg 69.3 kg Intake: IV 420 130 120 Meropenem 500 mg In 50 Sodium Chloride 0.9% 50 ml @ 100 mls/hr IVPB Q24HR [facility] Rx#:[id number] Potassium Chloride 20 meq 100 In Water For Injection 1 100ml.bag @ 50 mls/hr IVPB Q1H [facility] Rx#: [id number] Vancomycin 1,250 mg In 250 Sodium Chloride 0.9% 250 ml @ 125 mls/hr IVPB ONCE ONE Rx#:[id number] sodium chloride 0.9% 1, 120 130 20 000 ml KVO Intake, IV Titration 129.646 478.637 Amount Heparin Sodium,Porcine/ 478.637 D5w Pmx 25,000 unit In Dextrose/Water 1 500ml. bag @ 12 UNITS/KG/HR 13. 49 mls/hr IV .Q24H [facility] Rx #:[id number] Norepinephrin 16 mg-0.9% 35.149 Ns Pmx 16 mg In 250 ml @ Titrate IV .Q0M [facility] Rx#: [id number] Propofol 1,000 mg In 94.497 Empty Bag 1 bag @ Titrate IV .Q0M [facility] Rx#: [id number] Tube Feeding 460 240 30 Other 300 60 Output: Urine 142 130 20 Other: Voiding Method Indwelling Catheter Indwelling Catheter ABP, PAP, CO, CI - Last Documented Arterial Blood Pressure 101/50 - Exam Appearance the patient is intubated, sedated, on mechanical ventilation. Head exam was generally normal. There was no scleral icterus or corneal arcus. Mucous membranes were moist. The patient has an orogastric and orotracheal tube are both in place and secured. Neck was supple and without jugular venous distension, thyromegaly, or carotid bruits. Carotids were easily palpable bilaterally. There was no adenopathy. Lungs sounds are diminished bilaterally along with some scattered rhonchi and bilateral crackles in lung bases. No wheezing. ET tube is in a good location. Heart sounds irregular irregular rhythm, positive S1-S2, no significant murmurs appreciated. Abdominal exam revealed normal bowel sounds. The abdomen was soft, non-tender, and without masses, organomegaly, or appreciable enlargement of the abdominal aorta. The patient has a PD catheter which is in place and there is no direct tenderness or rebound tensile guarding. Extremities revealed no edema. Pulses in lower extremities are markedly diminished. The patient has necrotic digits at the tips of the digits involving the third mid finger on the left and the fourth finger on the right. There is evidence of dry gangrene. No evidence of any wound infection. The area is pretty much black and necrotic. No lower extremities edema. No cyanosis. Neurologic the patient is awake, however cannot maintain a good eye contact, and she does not follow simple instructions. Able to move all extremities. - Labs CBC & Chem 7: 09/02/17 04:00 09/02/17 04:00 Labs: Abnormal Lab Results - Last 24 Hours (Table) 09/01/17 09/01/17 09/02/17 Range/Units 12:42 17:33 00:49 WBC (3.8-10.6) k/uL RBC (3.80-5.40) m/uL Hgb (11.4-16.0) gm/dL Hct (34.0-46.0) % Neutrophils # (1.3-7.7) k/uL APTT (22.0-30.0) sec ABG pH (7.35-7.45) ABG pCO2 (35-45) mmHg ABG HCO3 (21-25) mmol/L ABG Total CO2 (19-24) mmol/L ABG O2 Saturation (94-97) % Sodium (137-145) mmol/L Potassium (3.5-5.1) mmol/L Chloride (98-107) mmol/L BUN (7-17) mg/dL Creatinine (0.52-1.04) mg/dL Glucose (74-99) mg/dL POC Glucose (mg/dL) 220 H 302 H 227 H (75-99) mg/dL Calcium (8.4-10.2) mg/dL Ionized Calcium Karlo (4.5-5.3) mg/dL Phosphorus (2.5-4.5) mg/dL Albumin (3.5-5.0) g/dL 09/02/17 09/02/17 09/02/17 Range/Units 04:00 04:00 04:00 WBC 13.9 H (3.8-10.6) k/uL RBC 2.74 L (3.80-5.40) m/uL Hgb 8.0 L (11.4-16.0) gm/dL Hct 24.7 L (34.0-46.0) % Neutrophils # 11.8 H (1.3-7.7) k/uL APTT 44.0 H (22.0-30.0) sec ABG pH (7.35-7.45) ABG pCO2 (35-45) mmHg ABG HCO3 (21-25) mmol/L ABG Total CO2 (19-24) mmol/L ABG O2 Saturation (94-97) % Sodium 130 L (137-145) mmol/L Potassium 2.9 L* (3.5-5.1) mmol/L Chloride 94 L (98-107) mmol/L BUN 54 H (7-17) mg/dL Creatinine 3.50 H (0.52-1.04) mg/dL Glucose 198 H (74-99) mg/dL POC Glucose (mg/dL) (75-99) mg/dL Calcium 6.0 L* (8.4-10.2) mg/dL Ionized Calcium Karlo (4.5-5.3) mg/dL Phosphorus 6.1 H (2.5-4.5) mg/dL Albumin (3.5-5.0) g/dL 09/02/17 09/02/17 09/02/17 Range/Units 06:00 06:00 06:55 WBC (3.8-10.6) k/uL RBC (3.80-5.40) m/uL Hgb (11.4-16.0) gm/dL Hct (34.0-46.0) % Neutrophils # (1.3-7.7) k/uL APTT (22.0-30.0) sec ABG pH (7.35-7.45) ABG pCO2 (35-45) mmHg ABG HCO3 (21-25) mmol/L ABG Total CO2 (19-24) mmol/L ABG O2 Saturation (94-97) % Sodium (137-145) mmol/L Potassium (3.5-5.1) mmol/L Chloride (98-107) mmol/L BUN (7-17) mg/dL Creatinine (0.52-1.04) mg/dL Glucose (74-99) mg/dL POC Glucose (mg/dL) 243 H (75-99) mg/dL Calcium (8.4-10.2) mg/dL Ionized Calcium Karlo 3.5 L* (4.5-5.3) mg/dL Phosphorus (2.5-4.5) mg/dL Albumin 1.5 L (3.5-5.0) g/dL 09/02/17 Range/Units 07:39 WBC (3.8-10.6) k/uL RBC (3.80-5.40) m/uL Hgb (11.4-16.0) gm/dL Hct (34.0-46.0) % Neutrophils # (1.3-7.7) k/uL APTT (22.0-30.0) sec ABG pH 7.60 H* (7.35-7.45) ABG pCO2 27 L (35-45) mmHg ABG HCO3 26 H (21-25) mmol/L ABG Total CO2 27 H (19-24) mmol/L ABG O2 Saturation 97.3 H (94-97) % Sodium (137-145) mmol/L Potassium (3.5-5.1) mmol/L Chloride (98-107) mmol/L BUN (7-17) mg/dL Creatinine (0.52-1.04) mg/dL Glucose (74-99) mg/dL POC Glucose (mg/dL) (75-99) mg/dL Calcium (8.4-10.2) mg/dL Ionized Calcium Karlo (4.5-5.3) mg/dL Phosphorus (2.5-4.5) mg/dL Albumin (3.5-5.0) g/dL Microbiology - Last 24 Hours (Table) 08/27/17 14:10 Gram Stain - Final Peritoneal Fluid Body Fluid Culture - Final Enterococcus faecalis 08/27/17 11:00 Blood Culture - Preliminary Blood No Growth after 120 hours 08/30/17 03:57 Gram Stain - Final Sputum Sputum Culture - Final Assessment and Plan Assessment: 1 acute hypoxic respiratory failure, multifactorial, The patient has a component of fluid overload and pulmonary vessel congestion small bilateral pleural effusion. The severe metabolic acidosis has resolved. 2 acute hypotension , resolved, and off norepinephrine today. 3 acute non-STEMI NE troponin peaked at 7, still on a combination of aspirin and IV heparin 4 coronary artery disease with previous coronary artery bypass surgery 5 End stage renal disease on hemodialysis via peritoneal dialysis. The patient has been on PD since November 2016. 6 acute hyperkalemia secondary to severe metabolic acidosis, resolved 7 severe anion gap metabolic acidosis, resolved 8 history of obesity status post gastric bypass surgery 9 diabetes mellitus recovered following bariatric surgery and the patient is currently on no diabetic medications 10 hypertension, history of 11 hypothyroidism, chemically still hypothyroid with a TSH of more than 100 and a free T4 of 0.74 and the patient will be kept on IV Synthroid. 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 15 seeking kidney transplantation at [facility] 16 chronic anemia, normocytic 17 hypoproteinemia and hypoalbuminemia 18 hypothermia, recovered 19 severe peripheral vascular disease 20 acute abdominal sepsis the peritoneal fluid is positive for Enterococcus faecalis, vancomycin susceptible. Remains on vancomycin, presently off Merrem Recommendation: Continue all present meds, continue mechanical ventilation, cut down the FiO2 as tolerated, patient is presently on 40% FiO2, pressure support of 8 and CPAP of 5. Noted some overall improvement on the chest x-ray, no plans for thoracentesis at this point considering the improvement noted on the chest x-ray today. And I could not see hardly any pleural effusion on the left side on the chest x-ray. I have instructed the nurses today to keep the patient on pressure support and CPAP, and as soon as her mental status shows more improvement, and the patient is unable to follow some instructions or able to maintain eye contact, we can potentially extubate the patient. Patient in the meantime remains critically ill. We'll discuss her condition with family members today. Critical care time is 40 minutes. Time with Patient: Greater than 30
--- NOTE | 2017-09-02 11:48 | P.PN ---
Subjective Patient is seen in follow-up for end-stage renal disease. She is maintained on peritoneal dialysis. She's currently receiving exchanges every 4 hours alternating 2.5 and 4.25%. Her ultrafiltration since midnight has been over a liter. She is currently on ventilator. She is off all vasopressors. She is receiving tube feeds. Potassium was 2.9 this morning which is being replaced. Vital signs are stable. General: The patient appeared well nourished and normally developed. HEENT: Head exam is unremarkable. Neck is without jugular venous distension. Intubated. LUNGS: Breath sounds decreased. Scattered rhonchi. HEART: Rate and Rhythm are regular. First and second heart sounds normal. No murmurs, rubs or gallops. ABDOMEN: Abdominal exam reveals normal bowel sounds. Non-tender and non- distended. No evidence of peritonitis. EXTREMITITES: No clubbing, cyanosis, or edema. Objective - Vital Signs Vital signs: Vital Signs Temp 99.4 F 09/02/17 09:00 Pulse 103 H 09/02/17 09:00 Resp 18 09/02/17 09:00 BP 101/50 09/02/17 09:00 Pulse Ox 98 09/02/17 09:00 Intake & Output 09/01/17 09/02/17 09/02/17 18:59 06:59 18:59 Intake Total 1309.646 848.637 210 Output Total 142 130 20 Balance 1167.646 718.637 190 Weight 74.6 kg 69.3 kg 69.3 kg Intake: IV 420 130 120 Meropenem 500 mg In 50 Sodium Chloride 0.9% 50 ml @ 100 mls/hr IVPB Q24HR [facility] Rx#:[id number] Potassium Chloride 20 meq 100 In Water For Injection 1 100ml.bag @ 50 mls/hr IVPB Q1H [facility] Rx#: [id number] Vancomycin 1,250 mg In 250 Sodium Chloride 0.9% 250 ml @ 125 mls/hr IVPB ONCE ONE Rx#:[id number] sodium chloride 0.9% 1, 120 130 20 000 ml KVO Intake, IV Titration 129.646 478.637 Amount Heparin Sodium,Porcine/ 478.637 D5w Pmx 25,000 unit In Dextrose/Water 1 500ml. bag @ 12 UNITS/KG/HR 13. 49 mls/hr IV .Q24H [facility] Rx #:[id number] Norepinephrin 16 mg-0.9% 35.149 Ns Pmx 16 mg In 250 ml @ Titrate IV .Q0M [facility] Rx#: [id number] Propofol 1,000 mg In 94.497 Empty Bag 1 bag @ Titrate IV .Q0M [facility] Rx#: [id number] Tube Feeding 460 240 30 Other 300 60 Output: Urine 142 130 20 Other: Voiding Method Indwelling Catheter Indwelling Catheter ABP, PAP, CO, CI - Last Documented Arterial Blood Pressure 101/50 - Labs CBC & Chem 7: 09/02/17 04:00 09/02/17 04:00 Labs: Abnormal Lab Results - Last 24 Hours (Table) 09/01/17 09/01/17 09/02/17 Range/Units 12:42 17:33 00:49 WBC (3.8-10.6) k/uL RBC (3.80-5.40) m/uL Hgb (11.4-16.0) gm/dL Hct (34.0-46.0) % Neutrophils # (1.3-7.7) k/uL APTT (22.0-30.0) sec ABG pH (7.35-7.45) ABG pCO2 (35-45) mmHg ABG HCO3 (21-25) mmol/L ABG Total CO2 (19-24) mmol/L ABG O2 Saturation (94-97) % Sodium (137-145) mmol/L Potassium (3.5-5.1) mmol/L Chloride (98-107) mmol/L BUN (7-17) mg/dL Creatinine (0.52-1.04) mg/dL Glucose (74-99) mg/dL POC Glucose (mg/dL) 220 H 302 H 227 H (75-99) mg/dL Calcium (8.4-10.2) mg/dL Ionized Calcium Karlo (4.5-5.3) mg/dL Phosphorus (2.5-4.5) mg/dL Albumin (3.5-5.0) g/dL 09/02/17 09/02/17 09/02/17 Range/Units 04:00 04:00 04:00 WBC 13.9 H (3.8-10.6) k/uL RBC 2.74 L (3.80-5.40) m/uL Hgb 8.0 L (11.4-16.0) gm/dL Hct 24.7 L (34.0-46.0) % Neutrophils # 11.8 H (1.3-7.7) k/uL APTT 44.0 H (22.0-30.0) sec ABG pH (7.35-7.45) ABG pCO2 (35-45) mmHg ABG HCO3 (21-25) mmol/L ABG Total CO2 (19-24) mmol/L ABG O2 Saturation (94-97) % Sodium 130 L (137-145) mmol/L Potassium 2.9 L* (3.5-5.1) mmol/L Chloride 94 L (98-107) mmol/L BUN 54 H (7-17) mg/dL Creatinine 3.50 H (0.52-1.04) mg/dL Glucose 198 H (74-99) mg/dL POC Glucose (mg/dL) (75-99) mg/dL Calcium 6.0 L* (8.4-10.2) mg/dL Ionized Calcium Karlo (4.5-5.3) mg/dL Phosphorus 6.1 H (2.5-4.5) mg/dL Albumin (3.5-5.0) g/dL 09/02/17 09/02/17 09/02/17 Range/Units 06:00 06:00 06:55 WBC (3.8-10.6) k/uL RBC (3.80-5.40) m/uL Hgb (11.4-16.0) gm/dL Hct (34.0-46.0) % Neutrophils # (1.3-7.7) k/uL APTT (22.0-30.0) sec ABG pH (7.35-7.45) ABG pCO2 (35-45) mmHg ABG HCO3 (21-25) mmol/L ABG Total CO2 (19-24) mmol/L ABG O2 Saturation (94-97) % Sodium (137-145) mmol/L Potassium (3.5-5.1) mmol/L Chloride (98-107) mmol/L BUN (7-17) mg/dL Creatinine (0.52-1.04) mg/dL Glucose (74-99) mg/dL POC Glucose (mg/dL) 243 H (75-99) mg/dL Calcium (8.4-10.2) mg/dL Ionized Calcium Karlo 3.5 L* (4.5-5.3) mg/dL Phosphorus (2.5-4.5) mg/dL Albumin 1.5 L (3.5-5.0) g/dL 09/02/17 Range/Units 07:39 WBC (3.8-10.6) k/uL RBC (3.80-5.40) m/uL Hgb (11.4-16.0) gm/dL Hct (34.0-46.0) % Neutrophils # (1.3-7.7) k/uL APTT (22.0-30.0) sec ABG pH 7.60 H* (7.35-7.45) ABG pCO2 27 L (35-45) mmHg ABG HCO3 26 H (21-25) mmol/L ABG Total CO2 27 H (19-24) mmol/L ABG O2 Saturation 97.3 H (94-97) % Sodium (137-145) mmol/L Potassium (3.5-5.1) mmol/L Chloride (98-107) mmol/L BUN (7-17) mg/dL Creatinine (0.52-1.04) mg/dL Glucose (74-99) mg/dL POC Glucose (mg/dL) (75-99) mg/dL Calcium (8.4-10.2) mg/dL Ionized Calcium Karlo (4.5-5.3) mg/dL Phosphorus (2.5-4.5) mg/dL Albumin (3.5-5.0) g/dL Microbiology - Last 24 Hours (Table) 08/27/17 14:10 Gram Stain - Final Peritoneal Fluid Body Fluid Culture - Final Enterococcus faecalis 08/27/17 11:00 Blood Culture - Preliminary Blood No Growth after 120 hours 08/30/17 03:57 Gram Stain - Final Sputum Sputum Culture - Final Assessment and Plan Plan: Assessment: 1. End-stage renal disease maintained on peritoneal dialysis since November 2016. Etiology is diabetic kidney disease. 2. Hypokalemia secondary to losses from PD. 3. COPD peritonitis with fluid culture growing enterococcus facialis. Cell count has been trending down. Maintained on IV antibiotics. 4. Chronic kidney disease mineral bone disease maintained on PhosLo as outpatient. 5. History of coronary artery disease status post CABG 15 years ago. 6. Anemia of chronic kidney disease maintained on Aranesp. 7. Severe hypothyroidism maintained on Synthroid. 8. Hypocalcemia secondary to hypoalbuminemia. Corrected calcium is 7.8. Status post 1 g IV calcium gluconate this morning. 9. Hyperphosphatemia maintained on Renvela. 10. Hypervolemic hyponatremia. Plan: Repeat peritoneal fluid cell count Gram stain and culture today. Continue IV antibiotics. Maintain current exchanges alternating 2.5 and 4.25% solution. Potassium level being replaced. Repeat this evening. Continue with tube feeds. Wean FiO2.
[2017-09-02] MEDS ORDERED: LORazepam 2 MG/ML INJ IV STA (11:54)
[2017-09-02 12:40] LABS: Glucose,Whole Blood 220 mg/dL (75-99)
[2017-09-02] MEDS: HEPARIN SODIUM,PORCINE/D5W PMX 25,000 UNIT in DEXTROSE/WATER 1 500ML.BAG IV SCH (14:17)
[2017-09-02 14:54] LABS: Appearance,BF Clear; Color,BF Colorless
[2017-09-02 14:55] LABS: Nucleated Cells, Body Fluid 4 /uL; RBC, Body Fluid 13 /uL
[2017-09-02 17:32] LABS: Glucose,Whole Blood 240 mg/dL (75-99)
[2017-09-02] MEDS ORDERED: CALCIUM CHLORIDE 1,000 MG in SODIUM CHLORIDE 0.9% 100 ML IVPB STA (19:08)
[2017-09-02] MEDS: HEPARIN SODIUM,PORCINE 5,000 UNIT/ML 1 ML VIAL SQ SCH (20:20)
[2017-09-02] MEDS: INSULIN DETEMIR 100 UNIT/ML 10 ML VIAL SQ SCH (20:59)
--- NOTE | 2017-09-02 21:53 | P.PN ---
Subjective Progress Note Date: 09/02/17 67-year-old female presented visit care unit where she was intubated sedated and mechanically ventilated receiving her CAPD. Is related from the available data that she receives her to [facility] and has been cared for in [facility] in [place] where she's been evaluated for renal transplantation from a living related donor, her daughter. The patient has a long-standing history of diabetes mellitus type 2 and has end- stage renal disease related to this and normally is cared for with. Dialysis via the nighttime cycler, and has been doing this well in November 2016. Patient has known severe peripheral vascular disease and did apparently have a left upper extremity AV fistula that was placed however did not function well and with the what appears to be steal syndrome is without evidence the dry gangrenous third and fourth fingers of the left hand. Is also developed a dry gangrenous changes to the right hand middle finger also. consider gastric bypass she remains with severe obesity although apparently it has improved and she has underlying cardiovascular disease and severe peripheral vascular disease. the patient has evidence of a peritoneal dialysis sample with evidence of enterococcus and with at the infectious diseases consultation was requested. 08/31/2017 patient remains in intensive care unit intubated sedated and mechanically ventilated with decreasing doses of vasopressor therapy, epinephrine has been discontinued. The patient has been tolerating her CAPD well and is now getting into some negative balance. Nephrology has evaluated is holding on hemodialysis as long as CAPD continues to be effective. Laboratory has finalize the culture as enterococcus, not VRE, from the peritoneal fluid. Blood culture negative so far sputum culture is pending. 09/01/2017 patient is had some further improvement. Her sedation is being held with contemplation for further weaning tomorrow. She's not having fever. Vasopressor therapy has been weaned. The peritoneal dialysis is allowing some improvement of her volume overload and her creatinine is improving 09/02/2017 there is been some further improvement today. She has been weaned off of sedatives and is having some response to her name and did follow command earlier. She is in a weaning trial seems doing relatively well. Appear to dialysis is continuing to allow a negative fluid balance which will put will further help her respiratory status. No other positive cultures are noted except for the enterococcus of the peritoneal fluid. Objective - Vital Signs Vital signs: Vital Signs Temp 97 F L 09/02/17 21:00 Pulse 100 09/02/17 21:00 Resp 15 09/02/17 21:00 BP 123/53 09/02/17 21:00 Pulse Ox 100 09/02/17 21:00 Intake & Output 09/02/17 09/02/17 09/03/17 06:59 18:59 06:59 Intake Total 108.189 8462 146 Output Total 130 106 10 Balance 236.531 9646 136 Weight 69.3 kg 69.3 kg 69.3 kg Intake: IV 130 470 110 Calcium Chloride 1,000 mg 100 In Sodium Chloride 0.9% 100 ml @ 100 mls/hr IVPB ONCE [facility] Rx#:[id number] Meropenem 500 mg In 50 Sodium Chloride 0.9% 50 ml @ 100 mls/hr IVPB Q24HR [facility] Rx#:[id number] Potassium Chloride 20 meq 300 In Water For Injection 1 100ml.bag @ 50 mls/hr IVPB Q1H [facility] Rx#: [id number] sodium chloride 0.9% 1, 130 120 10 000 ml KVO Intake, IV Titration 478.637 Amount Heparin Sodium,Porcine/ 478.637 D5w Pmx 25,000 unit In Dextrose/Water 1 500ml. bag @ 12 UNITS/KG/HR 13. 49 mls/hr IV .Q24H [facility] Rx #:[id number] Tube Feeding 240 606 36 Other 120 Output: Urine 130 106 10 Other: Voiding Method Indwelling Catheter Indwelling Catheter Indwelling Catheter # Bowel Movements 1 ABP, PAP, CO, CI - Last Documented Arterial Blood Pressure 142/56 - Exam 67-year-old female who appears older than her stated age, is intubated sedated and mechanically ventilated at this time HEENT: Anicteric conjunctiva are pink and moist nasal mucosa grossly intact without significant lesions, there is no thrush.poor dentition Neck: The neck is supple without significant lymphadenopathy or thyromegaly. Lungs: there is symmetrical air entry with expiratory wheezes that are scattered no herber bronchial sounds are heard Heart: irregular with audible S1 and S2 soft S4 no distinct murmur click or rub PMI was nondisplaced with urethral Abdomen: Positive bowel sounds soft nonrigid without palpable masses or organomegaly. Extremities: the right upper extremities shows evidence of the third finger distal mummification, similar has occurred third finger to the left hand. The lower extremities are cool but not frankly cold no significant open ulcerations are seen been on the current vasopressor therapy the toes are dusky. Neuro: mechanically ventilated, less sedated is having some response to stimuli. - Labs CBC & Chem 7: 09/02/17 04:00 09/02/17 04:00 Labs: Abnormal Lab Results - Last 24 Hours (Table) 09/02/17 09/02/17 09/02/17 Range/Units 00:49 04:00 04:00 WBC 13.9 H (3.8-10.6) k/uL RBC 2.74 L (3.80-5.40) m/uL Hgb 8.0 L (11.4-16.0) gm/dL Hct 24.7 L (34.0-46.0) % Neutrophils # 11.8 H (1.3-7.7) k/uL APTT (22.0-30.0) sec ABG pH (7.35-7.45) ABG pCO2 (35-45) mmHg ABG HCO3 (21-25) mmol/L ABG Total CO2 (19-24) mmol/L ABG O2 Saturation (94-97) % Sodium 130 L (137-145) mmol/L Potassium 2.9 L* (3.5-5.1) mmol/L Chloride 94 L (98-107) mmol/L BUN 54 H (7-17) mg/dL Creatinine 3.50 H (0.52-1.04) mg/dL Glucose 198 H (74-99) mg/dL POC Glucose (mg/dL) 227 H (75-99) mg/dL Calcium 6.0 L* (8.4-10.2) mg/dL Ionized Calcium Karlo (4.5-5.3) mg/dL Phosphorus 6.1 H (2.5-4.5) mg/dL Albumin (3.5-5.0) g/dL 09/02/17 09/02/17 09/02/17 Range/Units 04:00 06:00 06:00 WBC (3.8-10.6) k/uL RBC (3.80-5.40) m/uL Hgb (11.4-16.0) gm/dL Hct (34.0-46.0) % Neutrophils # (1.3-7.7) k/uL APTT 44.0 H (22.0-30.0) sec ABG pH (7.35-7.45) ABG pCO2 (35-45) mmHg ABG HCO3 (21-25) mmol/L ABG Total CO2 (19-24) mmol/L ABG O2 Saturation (94-97) % Sodium (137-145) mmol/L Potassium (3.5-5.1) mmol/L Chloride (98-107) mmol/L BUN (7-17) mg/dL Creatinine (0.52-1.04) mg/dL Glucose (74-99) mg/dL POC Glucose (mg/dL) (75-99) mg/dL Calcium (8.4-10.2) mg/dL Ionized Calcium Karlo 3.5 L* (4.5-5.3) mg/dL Phosphorus (2.5-4.5) mg/dL Albumin 1.5 L (3.5-5.0) g/dL 09/02/17 09/02/17 09/02/17 Range/Units 06:55 07:39 12:29 WBC (3.8-10.6) k/uL RBC (3.80-5.40) m/uL Hgb (11.4-16.0) gm/dL Hct (34.0-46.0) % Neutrophils # (1.3-7.7) k/uL APTT (22.0-30.0) sec ABG pH 7.60 H* (7.35-7.45) ABG pCO2 27 L (35-45) mmHg ABG HCO3 26 H (21-25) mmol/L ABG Total CO2 27 H (19-24) mmol/L ABG O2 Saturation 97.3 H (94-97) % Sodium (137-145) mmol/L Potassium (3.5-5.1) mmol/L Chloride (98-107) mmol/L BUN (7-17) mg/dL Creatinine (0.52-1.04) mg/dL Glucose (74-99) mg/dL POC Glucose (mg/dL) 243 H 220 H (75-99) mg/dL Calcium (8.4-10.2) mg/dL Ionized Calcium Karlo (4.5-5.3) mg/dL Phosphorus (2.5-4.5) mg/dL Albumin (3.5-5.0) g/dL 09/02/17 Range/Units 17:29 WBC (3.8-10.6) k/uL RBC (3.80-5.40) m/uL Hgb (11.4-16.0) gm/dL Hct (34.0-46.0) % Neutrophils # (1.3-7.7) k/uL APTT (22.0-30.0) sec ABG pH (7.35-7.45) ABG pCO2 (35-45) mmHg ABG HCO3 (21-25) mmol/L ABG Total CO2 (19-24) mmol/L ABG O2 Saturation (94-97) % Sodium (137-145) mmol/L Potassium (3.5-5.1) mmol/L Chloride (98-107) mmol/L BUN (7-17) mg/dL Creatinine (0.52-1.04) mg/dL Glucose (74-99) mg/dL POC Glucose (mg/dL) 240 H (75-99) mg/dL Calcium (8.4-10.2) mg/dL Ionized Calcium Karlo (4.5-5.3) mg/dL Phosphorus (2.5-4.5) mg/dL Albumin (3.5-5.0) g/dL Microbiology - Last 24 Hours (Table) 08/27/17 11:00 Blood Culture - Final Blood No Growth after 144 hours Laboratory Results WBC 13.9 k/uL (3.8-10.6) H 09/02/17 04:00 RBC 2.74 m/uL (3.80-5.40) L 09/02/17 04:00 Hgb 8.0 gm/dL (11.4-16.0) L 09/02/17 04:00 Hct 24.7 % (34.0-46.0) L 09/02/17 04:00 MCV 90.1 fL (80.0-100.0) 09/02/17 04:00 MCH 29.2 pg (25.0-35.0) 09/02/17 04:00 MCHC 32.4 g/dL (31.0-37.0) 09/02/17 04:00 RDW 14.7 % (11.5-15.5) 09/02/17 04:00 Plt Count 251 k/uL (150-450) 09/02/17 04:00 Neutrophils % 85 % 09/02/17 04:00 Lymphocytes % 8 % 09/02/17 04:00 Monocytes % 3 % 09/02/17 04:00 Eosinophils % 3 % 09/02/17 04:00 Basophils % 0 % 09/02/17 04:00 Neutrophils # 11.8 k/uL (1.3-7.7) H 09/02/17 04:00 Lymphocytes # 1.1 k/uL (1.0-4.8) 09/02/17 04:00 Monocytes # 0.5 k/uL (0-1.0) 09/02/17 04:00 Eosinophils # 0.4 k/uL (0-0.7) 09/02/17 04:00 Basophils # 0.0 k/uL (0-0.2) 09/02/17 04:00 Hypochromasia Slight 08/27/17 10:35 Anisocytosis Slight 08/28/17 04:00 PT 13.7 sec (9.0-12.0) H 08/28/17 04:00 INR 1.5 (<1.2) H 08/28/17 04:00 APTT 44.0 sec (22.0-30.0) H 09/02/17 04:00 D-Dimer 5.03 mg/L FEU (<0.60) H 08/27/17 04:44 Sample Site AHOSKIE 09/02/17 07:39 ABG pH 7.60 (7.35-7.45) H* 09/02/17 07:39 ABG pCO2 27 mmHg (35-45) L 09/02/17 07:39 ABG pO2 88 mmHg (83-108) 09/02/17 07:39 ABG HCO3 26 mmol/L (21-25) H 09/02/17 07:39 ABG Total CO2 27 mmol/L (19-24) H 09/02/17 07:39 ABG O2 Saturation 97.3 % (94-97) H 09/02/17 07:39 ABG Base Excess 4.2 mmol/L 09/02/17 07:39 Rhett Test Yes 09/02/17 07:39 ABG Lactic Acid 4.2 mmol/L (0.5-1.6) H* 08/27/17 16:01 FiO2 40 % 09/02/17 07:39 Sodium 130 mmol/L (137-145) L 09/02/17 04:00 Potassium 2.9 mmol/L (3.5-5.1) L* 09/02/17 04:00 Chloride 94 mmol/L (98-107) L 09/02/17 04:00 Carbon Dioxide 24 mmol/L (22-30) 09/02/17 04:00 Anion Gap 12 mmol/L 09/02/17 04:00 BUN 54 mg/dL (7-17) H 09/02/17 04:00 Creatinine 3.50 mg/dL (0.52-1.04) H 09/02/17 04:00 Est GFR (CKD-EPI)AfAm 15 (>60 ml/min/1.73 sqM) 09/02/17 04:00 Est GFR (CKD-EPI)NonAf 13 (>60 ml/min/1.73 sqM) 09/02/17 04:00 Glucose 198 mg/dL (74-99) H 09/02/17 04:00 POC Glucose (mg/dL) 240 mg/dL (75-99) H 09/02/17 17:29 POC Glu Polisher And Buffer ID Geronimo Johns 09/02/17 17:[address] Glu mg/dL 103 08/27/17 10:35 Hemoglobin A1c 5.2 % (4.0-6.0) 08/27/17 10:35 Lactic Ac Sepsis Rflx Y 08/27/17 11:19 Plasma Lactic Acid Kana mmol/L (0.7-2.0) 08/27/17 10:35 Calcium 6.0 mg/dL (8.4-10.2) L* 09/02/17 04:00 Ionized Calcium Karlo 3.5 mg/dL (4.5-5.3) L* 09/02/17 06:00 Phosphorus 6.1 mg/dL (2.5-4.5) H 09/02/17 04:00 Magnesium 1.7 mg/dL (1.6-2.3) 09/02/17 04:00 Total Bilirubin 0.4 mg/dL (0.2-1.3) 08/27/17 04:44 AST 35 U/L (14-36) 08/27/17 04:44 ALT 23 U/L (9-52) 08/27/17 04:44 Alkaline Phosphatase 66 U/L (38-126) 08/27/17 04:44 Total Creatine Kinase 292 U/L (30-135) H 08/30/17 04:00 CK-MB (CK-2) 9.5 ng/mL (0.0-2.4) H* 08/30/17 04:00 CK-MB (CK-2) Rel Index 3.3 08/30/17 04:00 Troponin I 9.540 ng/mL (0.000-0.034) H* 08/30/17 04:00 Total Protein 4.8 g/dL (6.3-8.2) L 08/27/17 04:44 Albumin 1.5 g/dL (3.5-5.0) L 09/02/17 06:00 Triglycerides 62 mg/dL (<150) 08/28/17 04:00 Cholesterol 104 mg/dL (<200) 08/28/17 04:00 LDL Cholesterol, Calc 41 mg/dL (0-99) 08/28/17 04:00 HDL Cholesterol 51 mg/dL (40-60) 08/28/17 04:00 TSH >100.000 mIU/L (0.465-4.680) H 08/27/17 10:35 Free T4 0.74 ng/dL (0.78-2.19) L 08/27/17 10:35 Urine Color Yellow 08/27/17 20:00 Urine Appearance Cloudy (Clear) H 08/27/17 20:00 Urine pH 5.0 (5.0-8.0) 08/27/17 20:00 Ur Specific [place] 1.020 (1.001-1.035) 08/27/17 20:00 Urine Protein 1+ (Negative) H 08/27/17 20:00 Urine Glucose (UA) 3+ (Negative) H 08/27/17 20:00 Urine Ketones Negative (Negative) 08/27/17 20:00 Urine Blood Small (Negative) H 08/27/17 20:00 Urine Nitrite Negative (Negative) 08/27/17 20:00 Urine Bilirubin Negative (Negative) 08/27/17 20:00 Urine Urobilinogen <2.0 mg/dL (<2.0) 08/27/17 20:00 Ur Leukocyte Esterase Small (Negative) H 08/27/17 20:00 Urine RBC 1 /hpf (0-5) 08/27/17 20:00 Urine WBC 12 /hpf (0-5) H 08/27/17 20:00 Ur Squamous Epith Cells 11 /hpf (0-4) H 08/27/17 20:00 Amorphous Sediment Few /hpf (None) H 08/27/17 20:00 Hyaline Casts 3 /lpf (0-2) H 08/27/17 20:00 Urine Mucus Rare /hpf (None) H 08/27/17 20:00 Fluid Source Peritoneal 09/02/17 13:20 Fluid Color Colorless 09/02/17 13:20 Fluid Appearance Clear 09/02/17 13:20 Fluid RBC 13 /uL 09/02/17 13:20 Fluid Nucleated Cells 4 /uL 09/02/17 13:20 Fluid Polynuclear WBCs 81 % 08/29/17 14:09 Fluid Mononuclear WBCs 19 % 08/29/17 14:09 Random Vancomycin 17.9 ug/mL 09/01/17 04:00 C. difficile (EIA) Intrp Negative (Negative) 09/01/17 13:35 Microbiology 08/27/17 11:00 Blood Blood Culture - Final No Growth after 144 hours 08/27/17 14:10 Peritoneal Fluid Gram Stain - Final 08/27/17 14:10 Peritoneal Fluid Body Fluid Culture - Final Enterococcus faecalis 08/30/17 03:57 Sputum Gram Stain - Final 08/30/17 03:57 Sputum Sputum Culture - Final 08/27/17 23:20 Sputum Gram Stain - Final 08/27/17 23:20 Sputum Sputum Culture - Final 08/27/17 20:00 Urine,Catheterized Urine Culture - Final Assessment and Plan (1) Respiratory failure Current Visit: Yes Status: Acute Code(s): J96.90 - RESPIRATORY FAILURE, UNSP , UNSP W HYPOXIA OR HYPERCAPNIA SNOMED Code(s): 205707247 (2) Renal failure Current Visit: Yes Status: Acute Code(s): N19 - UNSPECIFIED KIDNEY FAILURE SNOMED Code(s): 67134074 (3) Bacterial infection associated with peritoneal dialysis catheter Narrative/Plan: 67-year-old female who is in the intensive care unit she is intubated sedated and mechanically ventilated due to her significant sepsis and hypotension at this time. There is concerns that she has an enterococcal peritonitis related to her CAPD. She's been evaluated by nephrology as well as surgery. At this time antimicrobial therapy has been initiated with vancomycin. Potentially may receive vancomycin in the dialysate if nephrology believes it is a potential. Follow-up sample should be obtained to ensure that there some improvement. there is discussion about the potential for hemodialysis but she is too hypotensive at this point in time. there is no data to suggest that she has a history of VRE will continue vancomycin therapy for now. Cultures for further direct antibiotic therapy. She is receiving meropenem also for now until further data is available. significant leukocytosis occurring directly related to her peritonitis. 08/31/2017 the patient has had similar treatment. Her significant acidosis is improved and is tolerating the CAPD somewhat better actually getting some negative fluid balance. As far as the peritonitis and sepsis appears to be somewhat better today. She is requiring less vasopressor therapy. Leukocytosis remains elevated at 23.8. Of note her creatinine has come down to 4.29 from a peak of 7.9, revealing that the CAPD is showing some affective nature. At this time will continue the antibiotic therapy with vancomycin per pharmacy dosing. Meropenem is being utilize also for now pending sputum culture results, once this is clear that there is not significant gram-negative pneumonia the meropenem can be streamlined. The patient sounds are present and they are updated on her situation. The opti foam will be applied to the stage III pressure ulceration to her buttocks that is present on admission, it was unstageable at admission. 09/01/2017 patient has had some improvement. There is contemplation for further weaning trials in the morning if her mentation continues to improve. She is off vasopressor therapy and with the peritoneal dialysis her creatinine is starting to improve. We'll expect as her sepsis improves and the uremia improves her mentation should further improve. We'll continue vancomycin at this time. If other cultures remain negative we'll be able to discontinue the meropenem tomorrow. Continue treatment for the stage III pressure ulceration with the optifoam. 09/02/2017 patient continues to have some further improvement. Weaning trials are ongoing at this time. The patient seems comfortable. We'll be able to discontinue meropenem at this point in time with no other further positive cultures. The plan 10-14 days of vancomycin for the enterococcus peritonitis. Fortunately fluid is cleared and she is doing somewhat better overall. Still has somewhat of a poor prognosis. Current Visit: Yes Status: Acute Code(s): T85.71XA - INFECT/INFLM REACTION DUE TO PERITON DIALYSIS CATHETER, INIT; A49.9 - BACTERIAL INFECTION, UNSPECIFIED SNOMED Code(s): 710022442
[2017-09-03] MEDS: INSULIN ASPART 100 UNIT/ML 1 ML 10 ML VIAL SQ SCH ×4 (00:07→19:03)
[2017-09-03] MEDS: DIALYSIS (PERIT 4.25%) 2000 ML 85 G/2,000 ML BAG INTRAPERIT SCH ×4 (00:08→23:56)
[2017-09-03 00:09] LABS: Glucose,Whole Blood 283 mg/dL (75-99)
[2017-09-03] MEDS: MORPHINE SULFATE 2 MG/ML SYRINGE IVP PRN (00:56)
[2017-09-03] MEDS: DIALYSIS (PERIT 2.5%) 2,000 ML 50 G/2,000 ML BAG INTRAPERIT SCH ×3 (03:59→20:19)
[2017-09-03 05:40] LABS: HCT 25.3 % (34.0-46.0); HGB 8.1 gm/dL (11.4-16.0); MCH 29.1 pg (25.0-35.0); MCHC 31.9 g/dL (31.0-37.0); MCV 91.2 fL (80.0-100.0); Mean Platelet Volume 7.9; Platelet Count 257 k/uL (150-450); RBC 2.78 m/uL (3.80-5.40); RDW 14.6 % (11.5-15.5); WBC 15.5 k/uL (3.8-10.6)
[2017-09-03 05:45] LABS: ALT 29 U/L (9-52); AST 31 U/L (14-36); Albumin 1.6 g/dL (3.5-5.0); Alkaline Phosphatase 100 U/L (38-126); Anion Gap 11 mmol/L; Blood Urea Nitrogen 54 mg/dL (7-17); Calcium 7.1 mg/dL (8.4-10.2); Carbon Dioxide 24 mmol/L (22-30); Chloride 95 mmol/L (98-107); Glucose 244 mg/dL (74-99); Magnesium 1.9 mg/dL (1.6-2.3); Phosphorus 5.7 mg/dL (2.5-4.5); Potassium 3.5 mmol/L (3.5-5.1); Sodium 130 mmol/L (137-145); Total Bilirubin <0.1 mg/dL (0.2-1.3); Total Protein 3.8 g/dL (6.3-8.2)
[2017-09-03 05:53] LABS: Glucose,Whole Blood 203 mg/dL (75-99)
[2017-09-03] MEDS ORDERED: POTASSIUM CHLORIDE 20 MEQ in WATER FOR INJECTION 1 100ML.BAG IVPB SCH (07:00)
[2017-09-03 07:24] LABS: ABG Base Excess 3.1 mmol/L; ABG HCO3 26 mmol/L (21-25); ABG Oxygen Saturation 98.4 % (94-97); ABG PCO2 34 mmHg (35-45); ABG PO2 151 mmHg (83-108); ABG TCO2 27 mmol/L (19-24)
[2017-09-03] MEDS: IPRATROPIUM-ALBUTEROL 3 ML NEB INHALATION SCH ×4 (07:38→20:13)
[2017-09-03] MEDS: POTASSIUM CHLORIDE 20 MEQ in SODIUM CHLORIDE 0.9% 100 ML IVPB SCH ×3 (08:17→16:11)
[2017-09-03] MEDS: SEVELAMER 800 MG TAB PO SCH ×3 (08:17→19:03)
[2017-09-03] MEDS: CHLORHEXIDINE GLUCONATE 15 ML CUP MUCOUS MEM SCH (08:17)
[2017-09-03] MEDS: PANTOPRAZOLE 40 MG/10 ML VIAL IVP SCH (08:18)
[2017-09-03] MEDS: MIDODRINE 5 MG TAB PO SCH ×2 (08:18→15:57)
[2017-09-03] MEDS: ASPIRIN 325 MG TAB PO SCH (08:18)
[2017-09-03] MEDS: HEPARIN SODIUM,PORCINE 5,000 UNIT/ML 1 ML VIAL SQ SCH ×2 (08:18→20:51)
[2017-09-03] MEDS: LEVOTHYROXINE IVP 100 MCG/5 ML VIAL IV SCH (08:18)
[2017-09-03] MEDS: METOPROLOL TARTRATE 12.5 MG TAB PO SCH (08:18)
--- NOTE | 2017-09-03 09:38 | XR ---
EXAMINATION TYPE: XR chest 1V portable DATE OF EXAM: 09/03/2017 COMPARISON: 09/02/2017 HISTORY: Tube placement TECHNIQUE: Single frontal view of the chest is obtained. FINDINGS: ET tube stable and NG tube again appears with the tip at the level of the distal esophagus . Postsurgical changes are seen is bilateral consolidation and pleural effusion with no sizable pneumot horax. Heart size stable. IMPRESSION: 1. Bilateral consolidation and pleural effusion. 2. NG tube is seen with the tip in the distal esophagus advancement of the tube recommended.
--- NOTE | 2017-09-03 10:34 | P.PN ---
Subjective Progress Note Date: 09/03/17 Principal diagnosis: Acute hypoxic respiratory failure secondary to congestive heart failure, systolic in nature, abdominal sepsis. Secondary to enterococcus faecalis This is a 67-year-old female patient with multiple medical problems and comorbidities who presented to ED with acute respiratory distress, intubated and placed on a mechanical ventilator and then moved to the intensive care unit. The patient has taken all of her care at [facility]. She has chronic renal failure and she currently has end stage renal disease and she is seeking kidney transportation the patient has been evaluated at [facility] for potential kidney transplant the daughter being her daughter. This patient lives in [place] and she recently moved in with her daughter living in [facility], and for that reason during this current episode the patient was brought in to our hospital. All of the information was obtained is from the daughters at the bedside This patient has developed renal failure, probably related to previous history of diabetes mellitus. She was started on peritoneal dialysis approximately year ago and she does nighttime cycler continuous with a 1.5 fluid exchange. This was started on high-dose in November 2016. Hemodialysis was considered and the patient was about to have a left upper extremity AV fistula. The fistula itself got clotted and the patient developed also ulceration in her digits bilaterally and for that reason this was not pursued. Currently the patient is gangrenous necrotic digits of the middle fingers of the left and the fourth finger on the right, affecting the tips. This was investigated at length at [facility]. The patient underwent a CT angios of the entire chest abdomen pelvis and extremities and she was found to have no significant subclavian axillary or brachial artery narrowing. She was found to have diffuse atherosclerosis with calcification of the bilateral radial and ulnar arteries and mild to moderate narrowing in the areas affecting the wrist. Atherosclerotic changes were also seen in the infrarenal abdominal aortic area which was estimated to be severe. Bilateral iliofemoral atherosclerotic changes were also seen. The patient was told to have small vessel disease and based on the reported history there was no evidence of any embolic phenomena or vasculitis The patient is known to have coronary artery disease and she has undergone pleased bypass surgery. She was morbidly obese and she was diabetic. She has undergone gastric bypass surgery more than 6 years ago and she has lost considerable amount of weight and during this time the patient was taken off as soon as she improved in terms of her blood sugar control and she started having episodes of hypoglycemia. Currently she is off anticoagulation. She also has chronic atrial fibrillation, chronic renal failure and currently she is on peritoneal dialysis, she hasn't complications of hyperkalemia, and she has history of hypertension, hyperlipidemia, hypothyroidism, peripheral vascular disease and previous history of coronary artery disease and myocardial infarction. The patient was at her daughter's home where she was feeling weak. In the property consultant hours the patient was found by the daughter collapsed in the bathroom. No reported chest pain or palpitations. No focal neurological deficit. The patient was lethargic and she was arousable and she was able to speak. She was moving all 4 extremities according to the history. No fever. No chills. No cough or sputum production. No nausea, vomiting or abdominal pain. The PD catheter was apparently functional. No skin rashes. Necrotic digits were seen bilaterally and these are dry gangrene. In the ED, the patient was found to be hypotensive postintubation. The patient was started on IV fluids and pressors. The patient was started on epinephrine infusion. She was intubated and blood gas showed severe metabolic acidosis. The chest x-ray shows cardiomegaly and pulmonary vessel congestion. ET tube was in a good location. No consolidation . Meanwhile, the patient's white cell count was at 14.2. The patient had a potassium level of 6.5 was being treated in the emergency department with a combination of Kayexalate, D50 and insulin and bicarb and the patient was severely acidotic with anion gap metabolic acidosis with a gap of 26 and a bicarb level of 5, creatinine of 9.4, and a troponin level of 1.2. EKG is not showing any acute ischemic abnormalities and is showing a normal sinus rhythm with a left bundle-branch block pattern. Subsequent potassium level was 7.1. Waldemar saw the patient in the ICU and we're going to start peritoneal dialysis. Meanwhile the patient is being resuscitated IV fluids. We'll start empiric antibiotic coverage. We'll monitor cardiac enzymes and obtain an echocardiogram. The computed tomography scan of the brain and C-spine showed no evidence of acute fracture and there was no evidence of any acute intracranial hemorrhage. On 08/28/2018 I'm seeing this patient for a follow-up. This is a very complicated case with present it with severe metabolic acidosis, respiratory failure, hyperkalemia and hypotension. The patient is being seen today in a follow-up. The patient remains sedated on a mechanical ventilator. This morning, she doesn't assist-control at the rate of 22, tidal volume 600, FiO2 of 50% and a PEEP of 5. Blood gases showed a component of acute respiratory alkalosis and the pH was at 7.47 with a pCO2 of 27 and pO2 1:30. Based on that , I dropped the tidal volume down to 500 by mouth I also drop the FiO2 down to 40%. Chest x-ray still showing a component of pulmonary vessel congestion and small bilateral pleural effusion. CT angios the chest was done yesterday and showed cardiomegaly and bilateral pleural effusion and pulmonary vascular congestion. He was no evidence of any pulmonary embolism. The patient is only on few mics of the low-fat for hemodynamic support. Troponin peaked at 7 and the patient is still on IV heparin and aspirin.. The patient had an echocardiogram yesterday that showed severe impaired LV function with an ejection fraction of 25-30%. In addition, there was segmental wall motion abnormalities involving the inferior wall and anteroseptal wall septum. The right ventricular pressure was estimated to be 42 mmHg. There was no significant valvular abnormalities. Left atrium was dilated. There was mild aortic stenosis. The patient had cultures sent and the blood culture and the abdominal fluid culture came back all negative. She remains on a combination of vancomycin and meropenem. Afebrile. White cell count is not elevated. Infected has dropped from 17 down to 11.9. Potassium level has also dropped down to 3.7 and the patient has a bicarb level which is up to 17. Calcium level is at 6.4. Phosphorus level is at 8.1. The patient was receiving abdominal PD 4 times a day with a 1.5% solution. Furthermore, the patient was noted to be somewhat hypothyroid with a TSH of 101 100 and a free T4 of 0.74. She was placed on 100 mg of IV Synthroid on a daily basis. Her hypothermia has also recovered. She is on tube feeds for now. Family is at the bedside. On 08/29/2017, I'm seeing this patient for a follow-up. The patient remains intubated on mechanical ventilator. This morning, she did assist-control mode at a rate of 22, tidal volume 500, FiO2 of 40% and a PEEP of 5. The blood gases still showing a component of respiratory alkalosis with a pH of 7.49 and a pCO2 of 32 and pO2 97. Based on this, I dropped the tidal volume down to 450. The patient will be given a sedation holiday again and we'll check weaning parameters and assess his readiness to wean. Upon yesterday's sedation holiday, the patient woke up last and she was able to follow some simple commands. Hemodynamically, the patient is still requiring 2 mics of epinephrine for blood pressure control. The patient is undergoing peritoneal dialysis with several exchanges on a daily basis with her 2.5% solution. The patient has no fever. No chills. Cultures of been negative. She was covered with a combination of Merrem and vancomycin. White cell count is at 17.4. The serum bicarb is up to 21 and there is no hyperkalemia. No other significant abnormalities otherwise for now. Patient was reevaluated today on 08/30/2017, remains on mechanical ventilation, intubated, sedated, remains on relatively high FiO2 100% which I cut down to 70% , and PEEP is at 8. Patient has abnormal chest x-ray showing interstitial edema , I believe the patient has fluid overload although the possibility of noncardiogenic pulmonary edema is not entirely ruled out, but considering the patient's LV dysfunction and considering she has an EF of 25%, this is most likely cardiogenic pulmonary edema in nature. Patient is not making much urine , she is still under peritoneal dialysis, and I believe we are not able to remove significant amount of fluids to improve her pulmonary status. Patient may eventually require hemodialysis. However she is still on a small dose of levo fed, may be able to cut it down and eventually arrange for hemodialysis. Labs were reviewed WBC count is 21.1 hemoglobin is 9.1 ABG showed a pO2 of 87 pCO2 of 34 pH of 7.38. Basic metabolic profile was reviewed continues to have an iron gap of 18 BUN is 67 creatinine 4.60. Chest x-ray as noted above endotracheal tube is intact and in the proper position. Chest x-ray again is consistent with pulmonary edema. Patient was reevaluated today on 08/31/2017, remains on mechanical ventilation, her ventilator settings are tidal volume of 450, assist control rate of 20 FiO2 is 50%, and PEEP is now at 5. Remains on levo fed at 7 mcg/m. Chest x-ray continues to show interstitial edema, and pleural effusions, slight improvement compared to yesterday's chest x-ray. ABG seems to be a lot better today, pO2 was 205 pCO2 29 pH of 7.51. BUN is 65 creatinine 4.29. Electrolytes otherwise are relatively unremarkable. Bicarb is 22. Patient remains on peritoneal dialysis, urine output is less than 10 mL per hour. Final microbiology report is pending, peritoneal fluid was positive for group D enterococcus. Patient remains on vancomycin and Merrem. Changes may be made once we have a final report on the cultures. Patient remains on propofol drip, not quite ready for any weaning trials. Today I will initiate enteral nutrition. Reevaluated today on 09/01/2017, patient remains on mechanical ventilation, ventilator settings are the same, however I was able to cut down the FiO2 to 40 % today. Remains on 4 g of levo fed, chest x-ray is showing worsening right- sided pleural effusion, hence may consider an ultrasound and thoracentesis. Patient is presently on heparin, if thoracentesis is to be done, will hold the heparin for few hours. Oxygenation is improving, and ABG seems to be better today. Hence I have instructed the nurses to wake up the patient, assess her mental status, assess possibly weaning parameters, and even consider a weaning trial today. Ultrasound was ordered, and may even consider thoracentesis. Patient is on propofol, we will hold the propofol and assess mental status today. ABG showed a pO2 of 128 pCO2 of 32 pH of 7.47. Lactulose were reviewed renal profile was reviewed WBC count is 22.2 hemoglobin is 8.8. Discussed with the pharmacologist, still the option of hemodialysis is to be considered if the patient does not continue to improve and cannot wean easily. Remains on antibiotics for her Enterococcus faecalis infection/peritonitis. Remains on enteral feeding and is being well-tolerated. Patient was reevaluated today on 09/02/2017, remains on mechanical ventilation, patient is off propofol for the last 24 hours, waking up, but unable to follow simple instructions yet. Opens eyes, but does not show any other responses. Cannot maintain a good eye contact. Chest x-ray has shown a significant improvement. Especially in the left pleural effusion, her gases are excellent, however considering her mental status, the patient is definitely not quite ready to be extubated at this point yet. No plans to do thoracentesis on this patient at this point. ABG showed a pO2 of 88 pCO2 of 27 pH of 7.60, patient is on 40% FiO2, and the same vent settings as noted above including tidal volume of 450, her rate was cut down to 12, and her FiO2 remains at 40% and PEEP is at 5. She is off norepinephrine. I switch the patient to a pressure support of 8 and CPAP, it is well-tolerated, however again considering her mental status him not quite ready to extubate the patient at this point yet. All labs were reviewed. Cultures from the peritoneal fluid were reviewed. Patient remains on vancomycin. Merrem was discontinued. Patient was reevaluated today on 09/03/2017, has been on pressure support and CPAP overnight, patient is doing well, her tidal volume is excellent, and her respiratory rate is in the teens. Her ABG was reviewed this morning, chest x- ray was reviewed, there is definite improvement in her chest x-ray and her oxygenation, patient is a bit more awake, follows simple instructions, but not fully 100% awake. She seems to be generally weak, and cannot have a good cough. Considering her overall clinical picture, I felt it would be the best time at this point to extubate the patient. Family was made aware of her overall condition, family is at bedside, we've and discussed the CODE STATUS and possible reintubation if she fails. If the patient is to be reintubated, they are well aware that she will eventually require tracheostomy if she does fail this time. Reviewed her chest x-ray, reviewed all the labs ABG, weaning parameters, and proceeded to extubating the patient to a nasal cannula. ABG on pressure support and CPAP showed a pO2 of 151 pCO2 of 34 pH of 7.50. CBC is relatively unremarkable, hemoglobin is a bit low but not unexpected considering her renal failure. Objective - Vital Signs Vital signs: Vital Signs Temp 99.5 F 09/03/17 08:00 Pulse 90 09/03/17 10:00 Resp 19 09/03/17 10:00 BP 115/60 09/03/17 05:00 Pulse Ox 100 09/03/17 10:00 Intake & Output 09/02/17 09/03/17 09/03/17 18:59 06:59 18:59 Intake Total 1196 856 112 Output Total 106 89 10 Balance 1090 767 102 Weight 69.3 kg 69.4 kg Intake: IV 470 220 10 Calcium Chloride 1,000 mg 100 In Sodium Chloride 0.9% 100 ml @ 100 mls/hr IVPB [facility] Rx#:[id number] Meropenem 500 mg In 50 Sodium Chloride 0.9% 50 ml @ 100 mls/hr IVPB Q24HR [facility] Rx#:[id number] Potassium Chloride 20 meq 300 In Water For Injection 1 100ml.bag @ 50 mls/hr IVPB Q1H [facility] Rx#: [id number] sodium chloride 0.9% 1, 120 120 10 000 ml KVO Tube Feeding 606 576 72 Other 120 60 30 Output: Urine 106 89 10 Other: Voiding Method Indwelling Catheter Indwelling Catheter Indwelling Catheter # Bowel Movements 1 ABP, PAP, CO, CI - Last Documented Arterial Blood Pressure 110/51 - Exam Appearance the patient is intubated, awake, off sedation, follows simple instructions. Head exam was generally normal. There was no scleral icterus or corneal arcus. Mucous membranes were moist. The patient has an orogastric and orotracheal tube are both in place and secured. Neck was supple and without jugular venous distension, thyromegaly, or carotid bruits. Carotids were easily palpable bilaterally. There was no adenopathy. Lungs sounds are diminished bilaterally along with some scattered rhonchi and bilateral crackles in lung bases. No wheezing. ET tube is in a good location. Heart sounds irregular irregular rhythm, positive S1-S2, no significant murmurs appreciated. Abdominal exam revealed normal bowel sounds. The abdomen was soft, non-tender, and without masses, organomegaly, or appreciable enlargement of the abdominal aorta. The patient has a PD catheter which is in place and there is no direct tenderness or rebound tensile guarding. Extremities revealed no edema. Pulses in lower extremities are markedly diminished. The patient has necrotic digits at the tips of the digits involving the third mid finger on the left and the fourth finger on the right. There is evidence of dry gangrene. No evidence of any wound infection. The area is pretty much black and necrotic. No lower extremities edema. No cyanosis. Neurologic the patient is awake, follows simple instructions, generally weak, - Labs CBC & Chem 7: 09/03/17 04:00 09/03/17 04:00 Labs: Abnormal Lab Results - Last 24 Hours (Table) 0609/02/17 09/03/17 Range/Units 12:29 17:29 00:05 WBC (3.8-10.6) k/uL RBC (3.80-5.40) m/uL Hgb (11.4-16.0) gm/dL Hct (34.0-46.0) % ABG pH (7.35-7.45) ABG pCO2 (35-45) mmHg ABG pO2 (83-108) mmHg ABG HCO3 (21-25) mmol/L ABG Total CO2 (19-24) mmol/L ABG O2 Saturation (94-97) % Sodium (137-145) mmol/L Chloride (98-107) mmol/L BUN (7-17) mg/dL Creatinine (0.52-1.04) mg/dL Glucose (74-99) mg/dL POC Glucose (mg/dL) 220 H 240 H 283 H (75-99) mg/dL Calcium (8.4-10.2) mg/dL Phosphorus (2.5-4.5) mg/dL Total Bilirubin (0.2-1.3) mg/dL Total Protein (6.3-8.2) g/dL Albumin (3.5-5.0) g/dL 09/03/17 09/03/17 09/03/17 Range/Units 04:00 04:00 05:52 WBC 15.5 H (3.8-10.6) k/uL RBC 2.78 L (3.80-5.40) m/uL Hgb 8.1 L (11.4-16.0) gm/dL Hct 25.3 L (34.0-46.0) % ABG pH (7.35-7.45) ABG pCO2 (35-45) mmHg ABG pO2 (83-108) mmHg ABG HCO3 (21-25) mmol/L ABG Total CO2 (19-24) mmol/L ABG O2 Saturation (94-97) % Sodium 130 L (137-145) mmol/L Chloride 95 L (98-107) mmol/L BUN 54 H (7-17) mg/dL Creatinine 3.20 H (0.52-1.04) mg/dL Glucose 244 H (74-99) mg/dL POC Glucose (mg/dL) 203 H (75-99) mg/dL Calcium 7.1 L (8.4-10.2) mg/dL Phosphorus 5.7 H (2.5-4.5) mg/dL Total Bilirubin <0.1 L (0.2-1.3) mg/dL Total Protein 3.8 L (6.3-8.2) g/dL Albumin 1.6 L (3.5-5.0) g/dL 09/03/17 Range/Units 07:22 WBC (3.8-10.6) k/uL RBC (3.80-5.40) m/uL Hgb (11.4-16.0) gm/dL Hct (34.0-46.0) % ABG pH 7.50 H (7.35-7.45) ABG pCO2 34 L (35-45) mmHg ABG pO2 151 H (83-108) mmHg ABG HCO3 26 H (21-25) mmol/L ABG Total CO2 27 H (19-24) mmol/L ABG O2 Saturation 98.4 H (94-97) % Sodium (137-145) mmol/L Chloride (98-107) mmol/L BUN (7-17) mg/dL Creatinine (0.52-1.04) mg/dL Glucose (74-99) mg/dL POC Glucose (mg/dL) (75-99) mg/dL Calcium (8.4-10.2) mg/dL Phosphorus (2.5-4.5) mg/dL Total Bilirubin (0.2-1.3) mg/dL Total Protein (6.3-8.2) g/dL Albumin (3.5-5.0) g/dL Microbiology - Last 24 Hours (Table) 08/27/17 11:00 Blood Culture - Final Blood No Growth after 144 hours Assessment and Plan Assessment: 1 acute hypoxic respiratory failure, multifactorial, The patient has a component of fluid overload and pulmonary vessel congestion small bilateral pleural effusion. The severe metabolic acidosis has resolved. 2 acute hypotension , resolved, and off norepinephrine today. 3 acute non-STEMI [place] troponin peaked at 7, still on a combination of aspirin and IV heparin 4 coronary artery disease with previous coronary artery bypass surgery 5 End stage renal disease on hemodialysis via peritoneal dialysis. The patient has been on PD since November 2016. 6 acute hyperkalemia secondary to severe metabolic acidosis, resolved 7 severe anion gap metabolic acidosis, resolved 8 history of obesity status post gastric bypass surgery 9 diabetes mellitus recovered following bariatric surgery and the patient is currently on no diabetic medications 10 hypertension, history of 11 hypothyroidism, chemically still hypothyroid with a TSH of more than 100 and a free T4 of 0.74 and the patient will be kept on IV Synthroid. 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 15 seeking kidney transplantation at [facility] 16 chronic anemia, normocytic 17 hypoproteinemia and hypoalbuminemia 18 hypothermia, recovered 19 severe peripheral vascular disease 20 acute abdominal sepsis the peritoneal fluid is positive for Enterococcus faecalis, vancomycin susceptible. Remains on vancomycin, presently off Merrem Recommendation: Patient was extubated to nasal cannula, chest x-ray, labs, medications, were all reviewed, discussed her condition with family at bedside, and proceeded to extubating the patient to a nasal cannula. Patient was extubated about an hour ago, and she seems to be tolerating the extubation well. Prognosis remains relatively poor and guarded, we'll continue to follow closely. Critical care time is 35 minutes Time with Patient: Greater than 30
[2017-09-03 12:35] LABS: Glucose,Whole Blood 127 mg/dL (75-99)
--- NOTE | 2017-09-03 14:39 | PN ---
PROGRESS NOTE Patient is seen for followup for end-stage renal disease. She was just extubated this morning. The patient is comfortable. She is not in any acute distress. She has had good ultrafiltration with each of her CAPD exchanges. Currently, patient is maintained on 4.25% solution alternating with 2.5% solutions. PHYSICAL EXAMINATION: On examination, blood pressure this morning 113/52, heart rate 95 per minute. She is afebrile. EXAMINATION OF THE HEART: S1, S2. EXAMINATION OF THE LUNGS: Bilateral breath sounds are heard. Coarse crackles are heard. Abdomen is soft, nontender. Examination of the lower extremities shows no significant edema. Gangrene is noted in both hands in the right middle finger and the left 2nd and 3rd digits. LABS: Labs show sodium 130, potassium 3.5, chloride 95. Calcium 7.1, phosphorus 5.7 mg/dL. Hemoglobin 8.1. ASSESSMENT: 1. End-stage renal disease, on peritoneal dialysis. Continue current PD exchanges. 2. Vent dependent respiratory failure, now extubated this morning. 3. Pleural effusions, currently improved. 4. Volume overload, improved over the last 2 to 3 days with good ultrafiltration with current PD exchanges. 5. Anemia with no active bleeding noted, maintained on Aranesp. No iron deficiency. 6. CAPD peritonitis with Enterococcus faecalis, maintained on vancomycin. PLAN: Continue current PD exchanges. Repeat labs in a.m. MMODL / STUARTN: [id number] /
--- NOTE | 2017-09-03 14:46 | P.PN ---
Subjective Progress Note Date: 09/03/17 67-year-old female presented visit care unit where she was intubated sedated and mechanically ventilated receiving her CAPD. Is related from the available data that she receives her to [facility] and has been cared for in [facility] in [place] where she's been evaluated for renal transplantation from a living related donor, her daughter. The patient has a long-standing history of diabetes mellitus type 2 and has end- stage renal disease related to this and normally is cared for with. Dialysis via the nighttime cycler, and has been doing this well in November 2016. Patient has known severe peripheral vascular disease and did apparently have a left upper extremity AV fistula that was placed however did not function well and with the what appears to be steal syndrome is without evidence the dry gangrenous third and fourth fingers of the left hand. Is also developed a dry gangrenous changes to the right hand middle finger also. consider gastric bypass she remains with severe obesity although apparently it has improved and she has underlying cardiovascular disease and severe peripheral vascular disease. the patient has evidence of a peritoneal dialysis sample with evidence of enterococcus and with at the infectious diseases consultation was requested. 08/31/2017 patient remains in intensive care unit intubated sedated and mechanically ventilated with decreasing doses of vasopressor therapy, epinephrine has been discontinued. The patient has been tolerating her CAPD well and is now getting into some negative balance. Nephrology has evaluated is holding on hemodialysis as long as CAPD continues to be effective. Laboratory has finalize the culture as enterococcus, not VRE, from the peritoneal fluid. Blood culture negative so far sputum culture is pending. 09/01/2017 patient is had some further improvement. Her sedation is being held with contemplation for further weaning tomorrow. She's not having fever. Vasopressor therapy has been weaned. The peritoneal dialysis is allowing some improvement of her volume overload and her creatinine is improving 09/02/2017 there is been some further improvement today. She has been weaned off of sedatives and is having some response to her name and did follow command earlier. She is in a weaning trial seems doing relatively well. Appear to dialysis is continuing to allow a negative fluid balance which will put will further help her respiratory status. No other positive cultures are noted except for the enterococcus of the peritoneal fluid. 09/03/2017 the patient is extubated. She is a bit more interactive. CAPD continues to have affected negative fluid balance. Objective - Vital Signs Vital signs: Vital Signs Temp 99.0 F 09/03/17 13:00 Pulse 93 09/03/17 14:00 Resp 18 09/03/17 14:00 BP 115/60 09/03/17 05:00 Pulse Ox 99 09/03/17 14:00 Intake & Output 09/02/17 09/03/17 09/03/17 18:59 06:59 18:59 Intake Total 1196 856 448 Output Total 106 89 54 Balance 1090 767 394 Weight 69.3 kg 69.4 kg Intake: IV 470 220 310 Calcium Chloride 1,000 mg 100 In Sodium Chloride 0.9% 100 ml @ 100 mls/hr IVPB ONCE STA Rx#:[id number] Meropenem 500 mg In 50 Sodium Chloride 0.9% 50 ml @ 100 mls/hr IVPB Q24HR ALEXANDRA Rx#:[id number] Potassium Chloride 20 meq 300 In Water For Injection 1 100ml.bag @ 50 mls/hr IVPB Q1H ALEXANDRA Rx#: [id number] sodium chloride 0.9% 1, 120 120 310 000 ml KVO Tube Feeding 606 576 108 Other 120 60 30 Output: Urine 106 89 54 Other: Voiding Method Indwelling Catheter Indwelling Catheter Indwelling Catheter # Bowel Movements 1 ABP, PAP, CO, CI - Last Documented Arterial Blood Pressure 106/48 - Exam 67-year-old female who appears older than her stated age, she is now extubated and seems comfortable HEENT: Anicteric conjunctiva are pink and moist nasal mucosa grossly intact without significant lesions, there is no thrush.poor dentition Neck: The neck is supple without significant lymphadenopathy or thyromegaly. Lungs: there is symmetrical air entry with expiratory wheezes that are scattered no herber bronchial sounds are heard Heart: irregular with audible S1 and S2 soft S4 no distinct murmur click or rub PMI was nondisplaced with urethral Abdomen: Positive bowel sounds soft nonrigid without palpable masses or organomegaly. Extremities: the right upper extremities shows evidence of the third finger distal mummification, similar has occurred third finger to the left hand. The lower extremities are cool but not frankly cold no significant open ulcerations are seen been on the current vasopressor therapy the toes are dusky. Neuro: she is arousable especially to her name and wiggles her toes. - Labs CBC & Chem 7: 09/03/17 04:00 09/03/17 04:00 Labs: Abnormal Lab Results - Last 24 Hours (Table) 09/02/17 09/03/17 09/03/17 Range/Units 17:29 00:05 04:00 WBC 15.5 H (3.8-10.6) k/uL RBC 2.78 L (3.80-5.40) m/uL Hgb 8.1 L (11.4-16.0) gm/dL Hct 25.3 L (34.0-46.0) % ABG pH (7.35-7.45) ABG pCO2 (35-45) mmHg ABG pO2 (83-108) mmHg ABG HCO3 (21-25) mmol/L ABG Total CO2 (19-24) mmol/L ABG O2 Saturation (94-97) % Sodium (137-145) mmol/L Chloride (98-107) mmol/L BUN (7-17) mg/dL Creatinine (0.52-1.04) mg/dL Glucose (74-99) mg/dL POC Glucose (mg/dL) 240 H 283 H (75-99) mg/dL Calcium (8.4-10.2) mg/dL Phosphorus (2.5-4.5) mg/dL Total Bilirubin (0.2-1.3) mg/dL Total Protein (6.3-8.2) g/dL Albumin (3.5-5.0) g/dL 09/03/17 09/03/17 09/03/17 Range/Units 04:00 05:52 07:22 WBC (3.8-10.6) k/uL RBC (3.80-5.40) m/uL Hgb (11.4-16.0) gm/dL Hct (34.0-46.0) % ABG pH 7.50 H (7.35-7.45) ABG pCO2 34 L (35-45) mmHg ABG pO2 151 H (83-108) mmHg ABG HCO3 26 H (21-25) mmol/L ABG Total CO2 27 H (19-24) mmol/L ABG O2 Saturation 98.4 H (94-97) % Sodium 130 L (137-145) mmol/L Chloride 95 L (98-107) mmol/L BUN 54 H (7-17) mg/dL Creatinine 3.20 H (0.52-1.04) mg/dL Glucose 244 H (74-99) mg/dL POC Glucose (mg/dL) 203 H (75-99) mg/dL Calcium 7.1 L (8.4-10.2) mg/dL Phosphorus 5.7 H (2.5-4.5) mg/dL Total Bilirubin <0.1 L (0.2-1.3) mg/dL Total Protein 3.8 L (6.3-8.2) g/dL Albumin 1.6 L (3.5-5.0) g/dL 09/03/17 Range/Units 12:34 WBC (3.8-10.6) k/uL RBC (3.80-5.40) m/uL Hgb (11.4-16.0) gm/dL Hct (34.0-46.0) % ABG pH (7.35-7.45) ABG pCO2 (35-45) mmHg ABG pO2 (83-108) mmHg ABG HCO3 (21-25) mmol/L ABG Total CO2 (19-24) mmol/L ABG O2 Saturation (94-97) % Sodium (137-145) mmol/L Chloride (98-107) mmol/L BUN (7-17) mg/dL Creatinine (0.52-1.04) mg/dL Glucose (74-99) mg/dL POC Glucose (mg/dL) 127 H (75-99) mg/dL Calcium (8.4-10.2) mg/dL Phosphorus (2.5-4.5) mg/dL Total Bilirubin (0.2-1.3) mg/dL Total Protein (6.3-8.2) g/dL Albumin (3.5-5.0) g/dL Microbiology - Last 24 Hours (Table) 08/27/17 11:00 Blood Culture - Final Blood No Growth after 144 hours Laboratory Results WBC 15.5 k/uL (3.8-10.6) H 09/03/17 04:00 RBC 2.78 m/uL (3.80-5.40) L 09/03/17 04:00 Hgb 8.1 gm/dL (11.4-16.0) L 09/03/17 04:00 Hct 25.3 % (34.0-46.0) L 09/03/17 04:00 MCV 91.2 fL (80.0-100.0) 09/03/17 04:00 MCH 29.1 pg (25.0-35.0) 09/03/17 04:00 MCHC 31.9 g/dL (31.0-37.0) 09/03/17 04:00 RDW 14.6 % (11.5-15.5) 09/03/17 04:00 Plt Count 257 k/uL (150-450) 09/03/17 04:00 Neutrophils % 85 % 09/02/17 04:00 Lymphocytes % 8 % 09/02/17 04:00 Monocytes % 3 % 09/02/17 04:00 Eosinophils % 3 % 09/02/17 04:00 Basophils % 0 % 09/02/17 04:00 Neutrophils # 11.8 k/uL (1.3-7.7) H 09/02/17 04:00 Lymphocytes # 1.1 k/uL (1.0-4.8) 09/02/17 04:00 Monocytes # 0.5 k/uL (0-1.0) 09/02/17 04:00 Eosinophils # 0.4 k/uL (0-0.7) 09/02/17 04:00 Basophils # 0.0 k/uL (0-0.2) 09/02/17 04:00 Hypochromasia Slight 08/27/17 10:35 Anisocytosis Slight 08/28/17 04:00 PT 13.7 sec (9.0-12.0) H 08/28/17 04:00 INR 1.5 (<1.2) H 08/28/17 04:00 APTT 44.0 sec (22.0-30.0) H 09/02/17 04:00 D-Dimer 5.03 mg/L FEU (<0.60) H 08/27/17 04:44 Sample Site [place] 09/03/17 07:22 ABG pH 7.50 (7.35-7.45) H 09/03/17 07:22 ABG pCO2 34 mmHg (35-45) L 09/03/17 07:22 ABG pO2 151 mmHg (83-108) H 09/03/17 07:22 ABG HCO3 26 mmol/L (21-25) H 09/03/17 07:22 ABG Total CO2 27 mmol/L (19-24) H 09/03/17 07:22 ABG O2 Saturation 98.4 % (94-97) H 09/03/17 07:22 ABG Base Excess 3.1 mmol/L 09/03/17 07:22 Rhett Test No 09/03/17 07:22 ABG Lactic Acid 4.2 mmol/L (0.5-1.6) H* 08/27/17 16:01 FiO2 40 % 09/03/17 07:22 Sodium 130 mmol/L (137-145) L 09/03/17 04:00 Potassium 3.5 mmol/L (3.5-5.1) 09/03/17 04:00 Chloride 95 mmol/L (98-107) L 09/03/17 04:00 Carbon Dioxide 24 mmol/L (22-30) 09/03/17 04:00 Anion Gap 11 mmol/L 09/03/17 04:00 BUN 54 mg/dL (7-17) H 09/03/17 04:00 Creatinine 3.20 mg/dL (0.52-1.04) H 09/03/17 04:00 Est GFR (CKD-EPI)AfAm 17 (>60 ml/min/1.73 sqM) 09/03/17 04:00 Est GFR (CKD-EPI)NonAf 15 (>60 ml/min/1.73 sqM) 09/03/17 04:00 Glucose 244 mg/dL (74-99) H 09/03/17 04:00 POC Glucose (mg/dL) 127 mg/dL (75-99) H 09/03/17 12:34 POC Glu Waste Disposal Attendant ID Cong [place] 09/03/17 12:[address] Glu mg/dL 103 08/27/17 10:35 Hemoglobin A1c 5.2 % (4.0-6.0) 08/27/17 10:35 Lactic Ac Sepsis Rflx Y 08/27/17 11:19 Plasma Lactic Acid Kana mmol/L (0.7-2.0) 08/27/17 10:35 Calcium 7.1 mg/dL (8.4-10.2) L 09/03/17 04:00 Ionized Calcium Karlo 3.5 mg/dL (4.5-5.3) L* 09/02/17 06:00 Phosphorus 5.7 mg/dL (2.5-4.5) H 09/03/17 04:00 Magnesium 1.9 mg/dL (1.6-2.3) 09/03/17 04:00 Total Bilirubin <0.1 mg/dL (0.2-1.3) L 09/03/17 04:00 AST 31 U/L (14-36) 09/03/17 04:00 ALT 29 U/L (9-52) 09/03/17 04:00 Alkaline Phosphatase 100 U/L (38-126) 09/03/17 04:00 Total Creatine Kinase 292 U/L (30-135) H 08/30/17 04:00 CK-MB (CK-2) 9.5 ng/mL (0.0-2.4) H* 08/30/17 04:00 CK-MB (CK-2) Rel Index 3.3 08/30/17 04:00 Troponin I 9.540 ng/mL (0.000-0.034) H* 08/30/17 04:00 Total Protein 3.8 g/dL (6.3-8.2) L 09/03/17 04:00 Albumin 1.6 g/dL (3.5-5.0) L 09/03/17 04:00 Triglycerides 62 mg/dL (<150) 08/28/17 04:00 Cholesterol 104 mg/dL (<200) 08/28/17 04:00 LDL Cholesterol, Calc 41 mg/dL (0-99) 08/28/17 04:00 HDL Cholesterol 51 mg/dL (40-60) 08/28/17 04:00 TSH >100.000 mIU/L (0.465-4.680) H 08/27/17 10:35 Free T4 0.74 ng/dL (0.78-2.19) L 08/27/17 10:35 Urine Color Yellow 08/27/17 20:00 Urine Appearance Cloudy (Clear) H 08/27/17 20:00 Urine pH 5.0 (5.0-8.0) 08/27/17 20:00 Ur Specific [place] 1.020 (1.001-1.035) 08/27/17 20:00 Urine Protein 1+ (Negative) H 08/27/17 20:00 Urine Glucose (UA) 3+ (Negative) H 08/27/17 20:00 Urine Ketones Negative (Negative) 08/27/17 20:00 Urine Blood Small (Negative) H 08/27/17 20:00 Urine Nitrite Negative (Negative) 08/27/17 20:00 Urine Bilirubin Negative (Negative) 08/27/17 20:00 Urine Urobilinogen <2.0 mg/dL (<2.0) 08/27/17 20:00 Ur Leukocyte Esterase Small (Negative) H 08/27/17 20:00 Urine RBC 1 /hpf (0-5) 08/27/17 20:00 Urine WBC 12 /hpf (0-5) H 08/27/17 20:00 Ur Squamous Epith Cells 11 /hpf (0-4) H 08/27/17 20:00 Amorphous Sediment Few /hpf (None) H 08/27/17 20:00 Hyaline Casts 3 /lpf (0-2) H 08/27/17 20:00 Urine Mucus Rare /hpf (None) H 08/27/17 20:00 Fluid Source Peritoneal 09/02/17 13:20 Fluid Color Colorless 09/02/17 13:20 Fluid Appearance Clear 09/02/17 13:20 Fluid RBC 13 /uL 09/02/17 13:20 Fluid Nucleated Cells 4 /uL 09/02/17 13:20 Fluid Polynuclear WBCs 81 % 08/29/17 14:09 Fluid Mononuclear WBCs 19 % 08/29/17 14:09 Random Vancomycin 23.5 ug/mL 09/03/17 04:00 C. difficile (EIA) Intrp Negative (Negative) 09/01/17 13:35 Microbiology 08/27/17 11:00 Blood Blood Culture - Final No Growth after 144 hours 08/27/17 14:10 Peritoneal Fluid Gram Stain - Final 08/27/17 14:10 Peritoneal Fluid Body Fluid Culture - Final Enterococcus faecalis 08/30/17 03:57 Sputum Gram Stain - Final 08/30/17 03:57 Sputum Sputum Culture - Final 08/27/17 23:20 Sputum Gram Stain - Final 08/27/17 23:20 Sputum Sputum Culture - Final 08/27/17 20:00 Urine,Catheterized Urine Culture - Final Assessment and Plan (1) Respiratory failure Current Visit: Yes Status: Acute Code(s): J96.90 - RESPIRATORY FAILURE, UNSP , UNSP W HYPOXIA OR HYPERCAPNIA SNOMED Code(s): 207770360 (2) Renal failure Current Visit: Yes Status: Acute Code(s): N19 - UNSPECIFIED KIDNEY FAILURE SNOMED Code(s): 96452607 (3) Bacterial infection associated with peritoneal dialysis catheter Narrative/Plan: 67-year-old female who is in the intensive care unit she is intubated sedated and mechanically ventilated due to her significant sepsis and hypotension at this time. There is concerns that she has an enterococcal peritonitis related to her CAPD. She's been evaluated by nephrology as well as surgery. At this time antimicrobial therapy has been initiated with vancomycin. Potentially may receive vancomycin in the dialysate if nephrology believes it is a potential. Follow-up sample should be obtained to ensure that there some improvement. there is discussion about the potential for hemodialysis but she is too hypotensive at this point in time. there is no data to suggest that she has a history of VRE will continue vancomycin therapy for now. Cultures for further direct antibiotic therapy. She is receiving meropenem also for now until further data is available. significant leukocytosis occurring directly related to her peritonitis. 08/31/2017 the patient has had similar treatment. Her significant acidosis is improved and is tolerating the CAPD somewhat better actually getting some negative fluid balance. As far as the peritonitis and sepsis appears to be somewhat better today. She is requiring less vasopressor therapy. Leukocytosis remains elevated at 23.8. Of note her creatinine has come down to 4.29 from a peak of 7.9, revealing that the CAPD is showing some affective nature. At this time will continue the antibiotic therapy with vancomycin per pharmacy dosing. Meropenem is being utilize also for now pending sputum culture results, once this is clear that there is not significant gram-negative pneumonia the meropenem can be streamlined. The patient sounds are present and they are updated on her situation. The opti foam will be applied to the stage III pressure ulceration to her buttocks that is present on admission, it was unstageable at admission. 09/01/2017 patient has had some improvement. There is contemplation for further weaning trials in the morning if her mentation continues to improve. She is off vasopressor therapy and with the peritoneal dialysis her creatinine is starting to improve. We'll expect as her sepsis improves and the uremia improves her mentation should further improve. We'll continue vancomycin at this time. If other cultures remain negative we'll be able to discontinue the meropenem tomorrow. Continue treatment for the stage III pressure ulceration with the optifoam. 09/02/2017 patient continues to have some further improvement. Weaning trials are ongoing at this time. The patient seems comfortable. We'll be able to discontinue meropenem at this point in time with no other further positive cultures. The plan 10-14 days of vancomycin for the enterococcus peritonitis. Fortunately fluid is cleared and she is doing somewhat better overall. Still has somewhat of a poor prognosis. 09/03/2017 patient has been extubated and seems comfortable. Is doing well with the treatment of her enterococcus peritonitis. At this time would plan to complete 14 days total of therapy for the enterococcal peritonitis with salvage of her CAPD catheter. She seems to be doing considerably better at this time. Nutrition is going to be the next biggest difficulty until her neurological status improves. Meropenem discontinued. Current Visit: Yes Status: Acute Code(s): T85.71XA - INFECT/INFLM REACTION DUE TO PERITON DIALYSIS CATHETER, INIT; A49.9 - BACTERIAL INFECTION, UNSPECIFIED SNOMED Code(s): 849808690
[2017-09-03 18:59] LABS: Glucose,Whole Blood 259 mg/dL (75-99)
[2017-09-03] MEDS: INSULIN DETEMIR 100 UNIT/ML 10 ML VIAL SQ SCH (20:51)
[2017-09-03 20:52] LABS: Glucose,Whole Blood 137 mg/dL (75-99)
[2017-09-04 00:12] LABS: Glucose,Whole Blood 107 mg/dL (75-99)
[2017-09-04] MEDS: INSULIN ASPART 100 UNIT/ML 1 ML 10 ML VIAL SQ SCH ×4 (00:27→18:59)
[2017-09-04] MEDS: DIALYSIS (PERIT 2.5%) 2,000 ML 50 G/2,000 ML BAG INTRAPERIT SCH ×4 (04:11→23:47)
[2017-09-04 04:56] LABS: HCT 24.9 % (34.0-46.0); MCH 29.1 pg (25.0-35.0); MCHC 32.1 g/dL (31.0-37.0); MCV 90.9 fL (80.0-100.0); Mean Platelet Volume 7.7; Platelet Count 267 k/uL (150-450); RBC 2.73 m/uL (3.80-5.40); RDW 14.4 % (11.5-15.5); WBC 14.8 k/uL (3.8-10.6)
[2017-09-04 05:08] LABS: Albumin 1.8 g/dL (3.5-5.0); Calcium 7.5 mg/dL (8.4-10.2); Magnesium 1.9 mg/dL (1.6-2.3); Phosphorus 4.6 mg/dL (2.5-4.5); Potassium 3.9 mmol/L (3.5-5.1); Total Bilirubin 0.3 mg/dL (0.2-1.3); Total Protein 4.2 g/dL (6.3-8.2)
[2017-09-04] MEDS ORDERED: VANCOMYCIN 1,250 MG in SODIUM CHLORIDE 0.9% 250 ML IVPB ONE (06:00)
--- NOTE | 2017-09-04 07:00 | CT ---
EXAM: CT Head Without Intravenous Contrast CLINICAL HISTORY: ITS.REASON CT Reason: altered mentation TECHNIQUE: Axial computed tomography images of the head/brain without intravenous contrast. CTDI is 17.3 mGy and DLP is 1012.7 mGy-cm. This CT exam was performed using one or more of the following dose reduction techniques: automated exposure control, adjustment of the mA and/or kV according to patient size, and/or use of iterative reconstruction technique. COMPARISON: 08-27-17 FINDINGS: Brain: Unremarkable. No hemorrhage. No significant white matter disease. No edema. Ventricles: Unremarkable. No ventriculomegaly. Bones/joints: Unremarkable. No acute fracture. Soft tissues: Unremarkable. Sinuses: Unremarkable as visualized. No acute sinusitis. Mastoid air cells: Unremarkable as visualized. No mastoid effusion. IMPRESSION: Normal head/brain CT. No change compared to prior study
--- NOTE | 2017-09-04 07:18 | XR ---
EXAMINATION TYPE: XR chest 1V portable DATE OF EXAM: 09/04/2017 COMPARISON: 09/03/2017 HISTORY: Enteric and endotracheal tube removal TECHNIQUE: Single frontal view of the chest is obtained. FINDINGS: There is persistent right basilar opacity with slight improved aeration of the right midlu ng. Enteric and endotracheal tubes have been removed in the interim. Remainder the lungs are clear. P ost CABG changes of the chest are noted. Cardiomediastinal silhouette is nonenlarged. Osseous structu res are intact. IMPRESSION: Interval removal of the enteric and endotracheal tubes and slight improvement of the rig ht midlung opacity. Right basilar opacity remains and could represent atelectasis or pneumonia.
[2017-09-04] MEDS: IPRATROPIUM-ALBUTEROL 3 ML NEB INHALATION SCH ×4 (07:40→19:48)
[2017-09-04] MEDS: MIDODRINE 5 MG TAB PO SCH ×2 (08:35→16:37)
[2017-09-04] MEDS: SEVELAMER 800 MG TAB PO SCH ×3 (08:36→16:38)
[2017-09-04] MEDS: ASPIRIN 325 MG TAB PO SCH (08:36)
[2017-09-04] MEDS: DIALYSIS (PERIT 4.25%) 2000 ML 85 G/2,000 ML BAG INTRAPERIT SCH (08:37)
[2017-09-04] MEDS: LEVOTHYROXINE IVP 100 MCG/5 ML VIAL IV SCH (09:14)
[2017-09-04] MEDS: HEPARIN SODIUM,PORCINE 5,000 UNIT/ML 1 ML VIAL SQ SCH ×2 (09:14→21:38)
[2017-09-04] MEDS: METOPROLOL TARTRATE 12.5 MG TAB PO SCH (09:14)
[2017-09-04] MEDS: PANTOPRAZOLE 40 MG/10 ML VIAL IVP SCH (09:14)
--- NOTE | 2017-09-04 11:07 | P.PN ---
Subjective Progress Note Date: 09/04/17 Principal diagnosis: Acute hypoxic respiratory failure secondary to congestive heart failure, systolic in nature, abdominal sepsis. Secondary to enterococcus faecalis This is a 67-year-old female patient with multiple medical problems and comorbidities who presented to ED with acute respiratory distress, intubated and placed on a mechanical ventilator and then moved to the intensive care unit. The patient has taken all of her care at [facility]. She has chronic renal failure and she currently has end stage renal disease and she is seeking kidney transportation the patient has been evaluated at [facility] for potential kidney transplant the daughter being her daughter. This patient lives in [place] and she recently moved in with her daughter living in [facility], and for that reason during this current episode the patient was brought in to our hospital. All of the information was obtained is from the daughters at the bedside This patient has developed renal failure, probably related to previous history of diabetes mellitus. She was started on peritoneal dialysis approximately year ago and she does nighttime cycler continuous with a 1.5 fluid exchange. This was started on high-dose in November 2016. Hemodialysis was considered and the patient was about to have a left upper extremity AV fistula. The fistula itself got clotted and the patient developed also ulceration in her digits bilaterally and for that reason this was not pursued. Currently the patient is gangrenous necrotic digits of the middle fingers of the left and the fourth finger on the right, affecting the tips. This was investigated at length at [facility]. The patient underwent a CT angios of the entire chest abdomen pelvis and extremities and she was found to have no significant subclavian axillary or brachial artery narrowing. She was found to have diffuse atherosclerosis with calcification of the bilateral radial and ulnar arteries and mild to moderate narrowing in the areas affecting the wrist. Atherosclerotic changes were also seen in the infrarenal abdominal aortic area which was estimated to be severe. Bilateral iliofemoral atherosclerotic changes were also seen. The patient was told to have small vessel disease and based on the reported history there was no evidence of any embolic phenomena or vasculitis The patient is known to have coronary artery disease and she has undergone pleased bypass surgery. She was morbidly obese and she was diabetic. She has undergone gastric bypass surgery more than 6 years ago and she has lost considerable amount of weight and during this time the patient was taken off as soon as she improved in terms of her blood sugar control and she started having episodes of hypoglycemia. Currently she is off anticoagulation. She also has chronic atrial fibrillation, chronic renal failure and currently she is on peritoneal dialysis, she hasn't complications of hyperkalemia, and she has history of hypertension, hyperlipidemia, hypothyroidism, peripheral vascular disease and previous history of coronary artery disease and myocardial infarction. The patient was at her daughter's home where she was feeling weak. In the die cleaner hours the patient was found by the daughter collapsed in the bathroom. No reported chest pain or palpitations. No focal neurological deficit. The patient was lethargic and she was arousable and she was able to speak. She was moving all 4 extremities according to the history. No fever. No chills. No cough or sputum production. No nausea, vomiting or abdominal pain. The PD catheter was apparently functional. No skin rashes. Necrotic digits were seen bilaterally and these are dry gangrene. In the ED, the patient was found to be hypotensive postintubation. The patient was started on IV fluids and pressors. The patient was started on epinephrine infusion. She was intubated and blood gas showed severe metabolic acidosis. The chest x-ray shows cardiomegaly and pulmonary vessel congestion. ET tube was in a good location. No consolidation . Meanwhile, the patient's white cell count was at 14.2. The patient had a potassium level of 6.5 was being treated in the emergency department with a combination of Kayexalate, D50 and insulin and bicarb and the patient was severely acidotic with anion gap metabolic acidosis with a gap of 26 and a bicarb level of 5, creatinine of 9.4, and a troponin level of 1.2. EKG is not showing any acute ischemic abnormalities and is showing a normal sinus rhythm with a left bundle-branch block pattern. Subsequent potassium level was 7.1. Waldemar saw the patient in the ICU and we're going to start peritoneal dialysis. Meanwhile the patient is being resuscitated IV fluids. We'll start empiric antibiotic coverage. We'll monitor cardiac enzymes and obtain an echocardiogram. The computed tomography scan of the brain and C-spine showed no evidence of acute fracture and there was no evidence of any acute intracranial hemorrhage. On 08/28/2018 I'm seeing this patient for a follow-up. This is a very complicated case with present it with severe metabolic acidosis, respiratory failure, hyperkalemia and hypotension. The patient is being seen today in a follow-up. The patient remains sedated on a mechanical ventilator. This morning, she doesn't assist-control at the rate of 22, tidal volume 600, FiO2 of 50% and a PEEP of 5. Blood gases showed a component of acute respiratory alkalosis and the pH was at 7.47 with a pCO2 of 27 and pO2 1:30. Based on that , I dropped the tidal volume down to 500 by mouth I also drop the FiO2 down to 40%. Chest x-ray still showing a component of pulmonary vessel congestion and small bilateral pleural effusion. CT angios the chest was done yesterday and showed cardiomegaly and bilateral pleural effusion and pulmonary vascular congestion. He was no evidence of any pulmonary embolism. The patient is only on few mics of the low-fat for hemodynamic support. Troponin peaked at 7 and the patient is still on IV heparin and aspirin.. The patient had an echocardiogram yesterday that showed severe impaired LV function with an ejection fraction of 25-30%. In addition, there was segmental wall motion abnormalities involving the inferior wall and anteroseptal wall septum. The right ventricular pressure was estimated to be 42 mmHg. There was no significant valvular abnormalities. Left atrium was dilated. There was mild aortic stenosis. The patient had cultures sent and the blood culture and the abdominal fluid culture came back all negative. She remains on a combination of vancomycin and meropenem. Afebrile. White cell count is not elevated. Infected has dropped from 17 down to 11.9. Potassium level has also dropped down to 3.7 and the patient has a bicarb level which is up to 17. Calcium level is at 6.4. Phosphorus level is at 8.1. The patient was receiving abdominal PD 4 times a day with a 1.5% solution. Furthermore, the patient was noted to be somewhat hypothyroid with a TSH of 101 100 and a free T4 of 0.74. She was placed on 100 mg of IV Synthroid on a daily basis. Her hypothermia has also recovered. She is on tube feeds for now. Family is at the bedside. On 08/29/2017, I'm seeing this patient for a follow-up. The patient remains intubated on mechanical ventilator. This morning, she did assist-control mode at a rate of 22, tidal volume 500, FiO2 of 40% and a PEEP of 5. The blood gases still showing a component of respiratory alkalosis with a pH of 7.49 and a pCO2 of 32 and pO2 97. Based on this, I dropped the tidal volume down to 450. The patient will be given a sedation holiday again and we'll check weaning parameters and assess his readiness to wean. Upon yesterday's sedation holiday, the patient woke up last and she was able to follow some simple commands. Hemodynamically, the patient is still requiring 2 mics of epinephrine for blood pressure control. The patient is undergoing peritoneal dialysis with several exchanges on a daily basis with her 2.5% solution. The patient has no fever. No chills. Cultures of been negative. She was covered with a combination of Merrem and vancomycin. White cell count is at 17.4. The serum bicarb is up to 21 and there is no hyperkalemia. No other significant abnormalities otherwise for now. Patient was reevaluated today on 08/30/2017, remains on mechanical ventilation, intubated, sedated, remains on relatively high FiO2 100% which I cut down to 70% , and PEEP is at 8. Patient has abnormal chest x-ray showing interstitial edema , I believe the patient has fluid overload although the possibility of noncardiogenic pulmonary edema is not entirely ruled out, but considering the patient's LV dysfunction and considering she has an EF of 25%, this is most likely cardiogenic pulmonary edema in nature. Patient is not making much urine , she is still under peritoneal dialysis, and I believe we are not able to remove significant amount of fluids to improve her pulmonary status. Patient may eventually require hemodialysis. However she is still on a small dose of levo fed, may be able to cut it down and eventually arrange for hemodialysis. Labs were reviewed WBC count is 21.1 hemoglobin is 9.1 ABG showed a pO2 of 87 pCO2 of 34 pH of 7.38. Basic metabolic profile was reviewed continues to have an iron gap of 18 BUN is 67 creatinine 4.60. Chest x-ray as noted above endotracheal tube is intact and in the proper position. Chest x-ray again is consistent with pulmonary edema. Patient was reevaluated today on 08/31/2017, remains on mechanical ventilation, her ventilator settings are tidal volume of 450, assist control rate of 20 FiO2 is 50%, and PEEP is now at 5. Remains on levo fed at 7 mcg/m. Chest x-ray continues to show interstitial edema, and pleural effusions, slight improvement compared to yesterday's chest x-ray. ABG seems to be a lot better today, pO2 was 205 pCO2 29 pH of 7.51. BUN is 65 creatinine 4.29. Electrolytes otherwise are relatively unremarkable. Bicarb is 22. Patient remains on peritoneal dialysis, urine output is less than 10 mL per hour. Final microbiology report is pending, peritoneal fluid was positive for group D enterococcus. Patient remains on vancomycin and Merrem. Changes may be made once we have a final report on the cultures. Patient remains on propofol drip, not quite ready for any weaning trials. Today I will initiate enteral nutrition. Reevaluated today on 09/01/2017, patient remains on mechanical ventilation, ventilator settings are the same, however I was able to cut down the FiO2 to 40 % today. Remains on 4 g of levo fed, chest x-ray is showing worsening right- sided pleural effusion, hence may consider an ultrasound and thoracentesis. Patient is presently on heparin, if thoracentesis is to be done, will hold the heparin for few hours. Oxygenation is improving, and ABG seems to be better today. Hence I have instructed the nurses to wake up the patient, assess her mental status, assess possibly weaning parameters, and even consider a weaning trial today. Ultrasound was ordered, and may even consider thoracentesis. Patient is on propofol, we will hold the propofol and assess mental status today. ABG showed a pO2 of 128 pCO2 of 32 pH of 7.47. Lactulose were reviewed renal profile was reviewed WBC count is 22.2 hemoglobin is 8.8. Discussed with the financial project manager, still the option of hemodialysis is to be considered if the patient does not continue to improve and cannot wean easily. Remains on antibiotics for her Enterococcus faecalis infection/peritonitis. Remains on enteral feeding and is being well-tolerated. Patient was reevaluated today on 09/02/2017, remains on mechanical ventilation, patient is off propofol for the last 24 hours, waking up, but unable to follow simple instructions yet. Opens eyes, but does not show any other responses. Cannot maintain a good eye contact. Chest x-ray has shown a significant improvement. Especially in the left pleural effusion, her gases are excellent, however considering her mental status, the patient is definitely not quite ready to be extubated at this point yet. No plans to do thoracentesis on this patient at this point. ABG showed a pO2 of 88 pCO2 of 27 pH of 7.60, patient is on 40% FiO2, and the same vent settings as noted above including tidal volume of 450, her rate was cut down to 12, and her FiO2 remains at 40% and PEEP is at 5. She is off norepinephrine. I switch the patient to a pressure support of 8 and CPAP, it is well-tolerated, however again considering her mental status him not quite ready to extubate the patient at this point yet. All labs were reviewed. Cultures from the peritoneal fluid were reviewed. Patient remains on vancomycin. Merrem was discontinued. Patient was reevaluated today on 09/03/2017, has been on pressure support and CPAP overnight, patient is doing well, her tidal volume is excellent, and her respiratory rate is in the teens. Her ABG was reviewed this morning, chest x- ray was reviewed, there is definite improvement in her chest x-ray and her oxygenation, patient is a bit more awake, follows simple instructions, but not fully 100% awake. She seems to be generally weak, and cannot have a good cough. Considering her overall clinical picture, I felt it would be the best time at this point to extubate the patient. Family was made aware of her overall condition, family is at bedside, we've and discussed the CODE STATUS and possible reintubation if she fails. If the patient is to be reintubated, they are well aware that she will eventually require tracheostomy if she does fail this time. Reviewed her chest x-ray, reviewed all the labs ABG, weaning parameters, and proceeded to extubating the patient to a nasal cannula. ABG on pressure support and CPAP showed a pO2 of 151 pCO2 of 34 pH of 7.50. CBC is relatively unremarkable, hemoglobin is a bit low but not unexpected considering her renal failure. Reevaluated today on 09/04/2017, patient tolerated extubation well, however her mental status seems to be a bit concerning. Patient is following very simple instructions like opening eyes and closing eyes, sometimes may wiggle her toes upon request, however not squeezing hands, and clearly does not seem to be alert or oriented. CT of the brain was done, came back basically nondiagnostic. Neurological consultation was initiated. Patient has been off narcotics and sedatives for almost over 2 days. Metabolically, her CBC is relatively unremarkable. And her basic metabolic profile is relatively normal except for BUN of 51 creatinine of 3.29. Family is at bedside, updated on her condition. And updated on the computed tomography scan of the brain findings. Neurology was consulted. Objective - Vital Signs Vital signs: Vital Signs Temp 98.2 F 09/04/17 09:00 Pulse 114 H 09/04/17 10:00 Resp 18 09/04/17 10:00 BP 111/61 09/04/17 09:00 Pulse Ox 95 09/04/17 10:00 Intake & Output 09/03/17 09/04/17 09/04/17 18:59 06:59 18:59 Intake Total 698 110 40 Output Total 114 55 55 Balance 584 55 -15 Weight 62.5 kg Intake: IV 560 110 40 sodium chloride 0.9% 1, 560 110 40 000 ml KVO Tube Feeding 108 Other 30 Output: Urine 114 55 55 Other: Voiding Method Indwelling Catheter Indwelling Catheter Indwelling Catheter ABP, PAP, CO, CI - Last Documented Arterial Blood Pressure 104/48 - Exam Physical exam revealed a 67-year-old female, chronically ill, in no distress, off mechanical ventilation, on nasal cannula. Head exam was generally normal. There was no scleral icterus or corneal arcus. Mucous membranes were moist. Neck was supple and without jugular venous distension, thyromegaly, or carotid bruits. Carotids were easily palpable bilaterally. There was no adenopathy. Lungs sounds are diminished bilaterally, no crackles or rhonchi or wheezes, Heart sounds irregular irregular rhythm, positive S1-S2, no significant murmurs appreciated. Abdominal exam revealed normal bowel sounds. The abdomen was soft, non-tender, and without masses, organomegaly, or appreciable enlargement of the abdominal aorta. The patient has a PD catheter which is in place and there is no direct tenderness Extremities revealed no edema. Pulses in lower extremities are markedly diminished. The patient has necrotic digits at the tips of the digits involving the third mid finger on the left and the fourth finger on the right. There is evidence of dry gangrene. No evidence of any wound infection. The area is pretty much black and necrotic. No lower extremities edema. No cyanosis. Neurologic the patient is lethargic, follows very simple instructions only. But generally weak. - Labs CBC & Chem 7: 09/04/17 04:50 09/04/17 04:50 Labs: Abnormal Lab Results - Last 24 Hours (Table) 09/03/17 09/03/17 09/03/17 Range/Units 12:34 18:57 20:49 WBC (3.8-10.6) k/uL RBC (3.80-5.40) m/uL Hgb (11.4-16.0) gm/dL Hct (34.0-46.0) % Sodium (137-145) mmol/L BUN (7-17) mg/dL Creatinine (0.52-1.04) mg/dL POC Glucose (mg/dL) 127 H 259 H 137 H (75-99) mg/dL Calcium (8.4-10.2) mg/dL Phosphorus (2.5-4.5) mg/dL AST (14-36) U/L Total Protein (6.3-8.2) g/dL Albumin (3.5-5.0) g/dL 09/04/17 09/04/17 09/04/17 Range/Units 00:11 04:50 04:50 WBC 14.8 H (3.8-10.6) k/uL RBC 2.73 L (3.80-5.40) m/uL Hgb 8.0 L (11.4-16.0) gm/dL Hct 24.9 L (34.0-46.0) % Sodium 136 L (137-145) mmol/L BUN 51 H (7-17) mg/dL Creatinine 3.29 H (0.52-1.04) mg/dL POC Glucose (mg/dL) 107 H (75-99) mg/dL Calcium 7.5 L (8.4-10.2) mg/dL Phosphorus 4.6 H (2.5-4.5) mg/dL AST 50 H (14-36) U/L Total Protein 4.2 L (6.3-8.2) g/dL Albumin 1.8 L (3.5-5.0) g/dL Assessment and Plan Assessment: 1 acute hypoxic respiratory failure, multifactorial, The patient has a component of fluid overload and pulmonary vessel congestion small bilateral pleural effusion. The severe metabolic acidosis has resolved. 2 acute hypotension , resolved, and off norepinephrine today. 3 acute non-STEMI VA troponin peaked at 7, still on a combination of aspirin and IV heparin 4 coronary artery disease with previous coronary artery bypass surgery 5 End stage renal disease on hemodialysis via peritoneal dialysis. The patient has been on PD since November 2016. 6 acute hyperkalemia secondary to severe metabolic acidosis, resolved 7 severe anion gap metabolic acidosis, resolved 8 history of obesity status post gastric bypass surgery 9 diabetes mellitus recovered following bariatric surgery and the patient is currently on no diabetic medications 10 hypertension, history of 11 hypothyroidism, chemically still hypothyroid with a TSH of more than 100 and a free T4 of 0.74 and the patient will be kept on IV Synthroid. 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 15 seeking kidney transplantation at [facility] 16 chronic anemia, normocytic 17 hypoproteinemia and hypoalbuminemia 18 hypothermia, recovered 19 severe peripheral vascular disease 20 acute abdominal sepsis the peritoneal fluid is positive for Enterococcus faecalis, vancomycin susceptible. Remains on vancomycin, presently off Merrem Recommendation: Patient was extubated on 09/03/2017, tolerated the extubation well , however her mental status seems to be concerning, CT of the brain was done nondiagnostic, neurological consultation was initiated, patient seems to have some form of metabolic encephalopathy. Time with Patient: Less than 30
[2017-09-04] MEDS: ASPIRIN 300 MG SUPP RECTAL SCH (11:46)
[2017-09-04] MEDS: ACETAMINOPHEN IV (For NPO) 1,000 MG in EMPTY BAG 1 BAG IVPB PRN (11:46)
[2017-09-04 12:41] LABS: Glucose,Whole Blood 224 mg/dL (75-99)
--- NOTE | 2017-09-04 12:53 | P.PN ---
Subjective Progress Note Date: 09/04/17 Principal diagnosis: This is a 67-year-old female with ESRD on peritoneal dialysis admitted with sepsis and had enterococcal peritonitis. She was extubated yesterday. She is on PD exchanges with 2000 mL of 2.5 and 4.25 and vomiting every 4 hours. Her ultrafiltration about 500 mL 4 exchanges approximately This morning she is somewhat hypertensive blood pressure in the 80s 100 and heart rate in the 100. She is somewhat obtunded she has eyes open and barely follows commands but tries to. She has gangrenous changes in the left fingers. Warm to touch though. She is on metoprolol 12.5 daily. Objective - Vital Signs Vital signs: Vital Signs Temp 98.2 F 09/04/17 09:00 Pulse 115 H 09/04/17 11:32 Resp 18 09/04/17 10:00 BP 111/61 09/04/17 09:00 Pulse Ox 95 09/04/17 10:00 Intake & Output 09/03/17 09/04/17 09/04/17 18:59 06:59 18:59 Intake Total 698 110 40 Output Total 114 55 55 Balance 584 55 -15 Weight 62.5 kg Intake: IV 560 110 40 sodium chloride 0.9% 1, 560 110 40 000 ml KVO Intake, IV Titration 0 Amount Norepinephrin 16 mg-0.9% 0 Ns Pmx 16 mg In 250 ml @ Titrate IV .Q0M [facility] Rx#: [id number] Tube Feeding 108 Other 30 Output: Urine 114 55 55 Other: Voiding Method Indwelling Catheter Indwelling Catheter Indwelling Catheter ABP, PAP, CO, CI - Last Documented Arterial Blood Pressure 104/48 On examination she is awake alert but really weak and though she tries to respond to commands but is on and off. HEENT exam no JVP neck is supple no facial asymmetry Lungs are clear to auscultation fair air entry bilaterally Chest x-ray shows minimal possible CHF Number monitor she is in normal sinus rhythm with tachycardia Abdomen is soft nontender PD catheter exit site is clear. Extremity exam was no edema warm to touch Neurologically awake alert but barely moves her extremities. - Labs CBC & Chem 7: 09/04/17 04:50 09/04/17 04:50 Labs: Abnormal Lab Results - Last 24 Hours (Table) 09/03/17 09/03/17 09/04/17 Range/Units 18:57 20:49 00:11 WBC (3.8-10.6) k/uL RBC (3.80-5.40) m/uL Hgb (11.4-16.0) gm/dL Hct (34.0-46.0) % Sodium (137-145) mmol/L BUN (7-17) mg/dL Creatinine (0.52-1.04) mg/dL POC Glucose (mg/dL) 259 H 137 H 107 H (75-99) mg/dL Calcium (8.4-10.2) mg/dL Phosphorus (2.5-4.5) mg/dL AST (14-36) U/L Total Protein (6.3-8.2) g/dL Albumin (3.5-5.0) g/dL 09/04/17 09/04/17 09/04/17 Range/Units 04:50 04:50 12:21 WBC 14.8 H (3.8-10.6) k/uL RBC 2.73 L (3.80-5.40) m/uL Hgb 8.0 L (11.4-16.0) gm/dL Hct 24.9 L (34.0-46.0) % Sodium 136 L (137-145) mmol/L BUN 51 H (7-17) mg/dL Creatinine 3.29 H (0.52-1.04) mg/dL POC Glucose (mg/dL) 224 H (75-99) mg/dL Calcium 7.5 L (8.4-10.2) mg/dL Phosphorus 4.6 H (2.5-4.5) mg/dL AST 50 H (14-36) U/L Total Protein 4.2 L (6.3-8.2) g/dL Albumin 1.8 L (3.5-5.0) g/dL Assessment and Plan Assessment: Impression 1. End-stage renal failure on peritoneal dialysis, currently on 2.5 and 4.25 alternating exchanges 2000 mL with ultrafiltration of about 500 mL per H exchange 2. Hypotensive, secondary to cardiomyopathy ejection fraction 25-30%. 3. Extubated yesterday. 4. Anemia with hemoglobin stable 5. Severe cardiomyopathy Recommendation. 1. Discussed with Dr. Curran regarding starting dobutamine or dopamine to improve her blood pressure. Because of her cardiomyopathy I am trying to not give her fluid. 2. Will reduce her PD exchanges 2 every 6 hours from every 4 hours and use only 2.5% so that the ultrafiltration is reduced. 3. She needs to be nutritionally supported and probably need a swallow eval and or a NG tube feeding. 4. We can also use Midrin but she needs to have an NG tube as she is unable to swallow the moment. 5. Monitor labs including CBC calcium phosphorus, magnesium about once or twice a week.
[2017-09-04] MEDS ORDERED: SODIUM CHLORIDE 0.9% 250 ML IV ONE (13:06)
[2017-09-04] MEDS: NOREPINEPHRIN 16 MG-0.9%NS PMX 16 MG/250 ML ML IV SCH (14:13)
[2017-09-04 18:23] LABS: Glucose,Whole Blood 182 mg/dL (75-99)
--- NOTE | 2017-09-04 21:21 | P.PN ---
Subjective Progress Note Date: 09/02/17 Principal diagnosis: Peritonitis and sepsis 65-year-old the being treated for acute respiratory failure secondary to sepsis source unclear possibly lower limb ulcerations or peritonitis. Patient remains intubated patient is presently on 40% FiO2 PEEP of 5 and tidal volume of 500 continues to have metabolic acidosis which improved compared to yesterday. Patient is undergoing peritoneal dialysis remains on epinephrine, propofol drip , IV heparin for possible non-ST elevation myocardial infarction, on antibiotics meropenem and vancomycin with the so for negative cultures, very minimal urine output, hypotension improved, possibility of a superimposed cardiac sharp with bilateral pleural effusions 08/29/2017 Patient is off sedation undergoing weaning trials, on 1 g of epinephrine. Patient is awake and arousable intubated on BiPAP through ventilator 08/30/17 reintubated last night with FiO2 at 70%/+8 of PEEP. Chest x-ray reporting increasing lung opacity's, worsening edema and or infiltrates. Maintained on DIprova, heparin and Levophed drips. Troponin up to 9.5. Minimal urine output. Peritoneal dialysis cultures reporting enterococcus. Potential hemodialysis being discussed. Telemetry sinus rhythm. 08/31/17 remains vent dependent. CXR and ABGs improving. FiO2 decreased to 50% and PEEP decreased down to 5%. No weaning trials, yet. Tube feedings being initiated. Bicarb 22. PD changed to every 4 hours with solution adjusted as per nephrology. Levophed down to 7 mics. Maintained on Merrem and vancomycin, peritoneal cultures positive for enterococcus D, final results pending. 09/01/17 continues on antibiotics for enterococcus faecalis peritonitis. remains vent dependent, FiO2 decreased to 40%/+5 of PEEP. ABGs improved. Maintain on heparin, diprovan and Levophed drips. Prior chest ultrasound reported bilateral pleural effusions greater on the left with largest pocket 8.3 cm. Chest x-ray reporting bilateral consolidation, pleural effusions, small amount of subcutaneous emphysema along right lateral chest wall. Chest ultrasound repeated with both left and right-sided marked for possible thoracentesis. Paroximal A. fib, currently sinus rhythm. Pulmonary discussing possible weaning parameters. Tube feeds at goal with minimal to no residuals. 09/02/2017 Patient remained on mechanical ventilator. Changed to per support and is starting to wean off from in today. Patient is able to open her eyes and could not follow any commands. Chest x-ray showed improvement in left pleural effusion. Pulmonary is now planning for thoracentesis at this time. Patient is off pressors support. Patient is being continued on vancomycin for enterococcus fecaliths in the peritoneal fluid. Meropenem has been discontinued. Pulmonary and ID is following. Review of systems could not be opened from the patient next line Current medications reviewed. Objective - Vital Signs Vital signs: Vital Signs Temp 97 F L 09/02/17 21:00 Pulse 100 09/02/17 21:00 Resp 15 09/02/17 21:00 BP 123/53 09/02/17 21:00 Pulse Ox 100 09/02/17 21:00 Intake & Output 09/02/17 09/02/17 09/03/17 06:59 18:59 06:59 Intake Total 049.679 7812 146 Output Total 130 106 10 Balance 806.868 4370 136 Weight 69.3 kg 69.3 kg 69.3 kg Intake: IV 130 470 110 Calcium Chloride 1,000 mg 100 In Sodium Chloride 0.9% 100 ml @ 100 mls/hr IVPB ONCE [facility] Rx#:[id number] Meropenem 500 mg In 50 Sodium Chloride 0.9% 50 ml @ 100 mls/hr IVPB Q24HR [facility] Rx#:[id number] Potassium Chloride 20 meq 300 In Water For Injection 1 100ml.bag @ 50 mls/hr IVPB Q1H [facility] Rx#: [id number] sodium chloride 0.9% 1, 130 120 10 000 ml KVO Intake, IV Titration 478.637 Amount Heparin Sodium,Porcine/ 478.637 D5w Pmx 25,000 unit In Dextrose/Water 1 500ml. bag @ 12 UNITS/KG/HR 13. 49 mls/hr IV .Q24H [facility] Rx #:[id number] Tube Feeding 240 606 36 Other 120 Output: Urine 130 106 10 Other: Voiding Method Indwelling Catheter Indwelling Catheter Indwelling Catheter # Bowel Movements 1 ABP, PAP, CO, CI - Last Documented Arterial Blood Pressure 142/56 - Exam GENERAL: Intubated and sedated on Diprovan HEENT: Pupils are round and equally reacting to light. EOMI. No scleral icterus. No conjunctival pallor. Normocephalic, atraumatic. No pharyngeal erythema. No thyromegaly. CARDIOVASCULAR: S1 and S2 present. No murmurs, rubs, or gallops. Tachycardic PULMONARY: Good air entry treatment with mechanical ventilator . Scattered rhonchi and bibasilar crackles are appreciated ABDOMEN: Soft, nontender, nondistended, normoactive bowel sounds. No palpable organomegaly. PD catheter present. MUSCULOSKELETAL: No joint swelling or deformity. EXTREMITIES: Multiple ulcerations in bilateral lower limbs and wounds please refer to nursing documentation for further details, markedly diminished bilateral dorsalis pedis pulses. Toes of bilateral feet dark purple. Black, Necrotic digits on bilateral hands involving right fourth finger and left third and fourth fingers.Stage II Right Buttock-nondraining. NEUROLOGICAL: Currently unable to assess, sedated SKIN: No rashes. - Labs CBC & Chem 7: 09/04/17 04:50 09/04/17 04:50 Labs: Abnormal Lab Results - Last 24 Hours (Table) 09/02/17 09/02/17 09/02/17 Range/Units 00:49 04:00 04:00 WBC 13.9 H (3.8-10.6) k/uL RBC 2.74 L (3.80-5.40) m/uL Hgb 8.0 L (11.4-16.0) gm/dL Hct 24.7 L (34.0-46.0) % Neutrophils # 11.8 H (1.3-7.7) k/uL APTT (22.0-30.0) sec ABG pH (7.35-7.45) ABG pCO2 (35-45) mmHg ABG HCO3 (21-25) mmol/L ABG Total CO2 (19-24) mmol/L ABG O2 Saturation (94-97) % Sodium 130 L (137-145) mmol/L Potassium 2.9 L* (3.5-5.1) mmol/L Chloride 94 L (98-107) mmol/L BUN 54 H (7-17) mg/dL Creatinine 3.50 H (0.52-1.04) mg/dL Glucose 198 H (74-99) mg/dL POC Glucose (mg/dL) 227 H (75-99) mg/dL Calcium 6.0 L* (8.4-10.2) mg/dL Ionized Calcium Karlo (4.5-5.3) mg/dL Phosphorus 6.1 H (2.5-4.5) mg/dL Albumin (3.5-5.0) g/dL 09/02/17 09/02/17 09/02/17 Range/Units 04:00 06:00 06:00 WBC (3.8-10.6) k/uL RBC (3.80-5.40) m/uL Hgb (11.4-16.0) gm/dL Hct (34.0-46.0) % Neutrophils # (1.3-7.7) k/uL APTT 44.0 H (22.0-30.0) sec ABG pH (7.35-7.45) ABG pCO2 (35-45) mmHg ABG HCO3 (21-25) mmol/L ABG Total CO2 (19-24) mmol/L ABG O2 Saturation (94-97) % Sodium (137-145) mmol/L Potassium (3.5-5.1) mmol/L Chloride (98-107) mmol/L BUN (7-17) mg/dL Creatinine (0.52-1.04) mg/dL Glucose (74-99) mg/dL POC Glucose (mg/dL) (75-99) mg/dL Calcium (8.4-10.2) mg/dL Ionized Calcium Karlo 3.5 L* (4.5-5.3) mg/dL Phosphorus (2.5-4.5) mg/dL Albumin 1.5 L (3.5-5.0) g/dL 09/02/17 09/02/17 09/02/17 Range/Units 06:55 07:39 12:29 WBC (3.8-10.6) k/uL RBC (3.80-5.40) m/uL Hgb (11.4-16.0) gm/dL Hct (34.0-46.0) % Neutrophils # (1.3-7.7) k/uL APTT (22.0-30.0) sec ABG pH 7.60 H* (7.35-7.45) ABG pCO2 27 L (35-45) mmHg ABG HCO3 26 H (21-25) mmol/L ABG Total CO2 27 H (19-24) mmol/L ABG O2 Saturation 97.3 H (94-97) % Sodium (137-145) mmol/L Potassium (3.5-5.1) mmol/L Chloride (98-107) mmol/L BUN (7-17) mg/dL Creatinine (0.52-1.04) mg/dL Glucose (74-99) mg/dL POC Glucose (mg/dL) 243 H 220 H (75-99) mg/dL Calcium (8.4-10.2) mg/dL Ionized Calcium Karlo (4.5-5.3) mg/dL Phosphorus (2.5-4.5) mg/dL Albumin (3.5-5.0) g/dL 09/02/17 Range/Units 17:29 WBC (3.8-10.6) k/uL RBC (3.80-5.40) m/uL Hgb (11.4-16.0) gm/dL Hct (34.0-46.0) % Neutrophils # (1.3-7.7) k/uL APTT (22.0-30.0) sec ABG pH (7.35-7.45) ABG pCO2 (35-45) mmHg ABG HCO3 (21-25) mmol/L ABG Total CO2 (19-24) mmol/L ABG O2 Saturation (94-97) % Sodium (137-145) mmol/L Potassium (3.5-5.1) mmol/L Chloride (98-107) mmol/L BUN (7-17) mg/dL Creatinine (0.52-1.04) mg/dL Glucose (74-99) mg/dL POC Glucose (mg/dL) 240 H (75-99) mg/dL Calcium (8.4-10.2) mg/dL Ionized Calcium Karlo (4.5-5.3) mg/dL Phosphorus (2.5-4.5) mg/dL Albumin (3.5-5.0) g/dL Microbiology - Last 24 Hours (Table) 08/27/17 11:00 Blood Culture - Final Blood No Growth after 144 hours Assessment and Plan Assessment: -Acute abdominal sepsis secondary to peritonitis,possibly related to PD catheter -though initial white count 170 with repeat PD fluid cell count 35, peritoneal fluid positive for enterococcus faecialis. -Septic shock with possibility of cardiogenic shock secondary to acute NSTEMI. Severe cardiomyopathy ejection fraction of around 25%. -Acute hypotension secondary to the above, pressor dependent. 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 Plan: Continue on current medication regime ,monitoring and symptomatic treatment. Antibiotics/Wound Care as per ID. pulmonary and ID is following. Follow closely with multiple consults. Patient's overall prognosis is poor. Time with Patient: Greater than 30
--- NOTE | 2017-09-04 21:25 | P.PN ---
Subjective Progress Note Date: 09/03/17 Principal diagnosis: Peritonitis and sepsis 65-year-old the being treated for acute respiratory failure secondary to sepsis source unclear possibly lower limb ulcerations or peritonitis. Patient remains intubated patient is presently on 40% FiO2 PEEP of 5 and tidal volume of 500 continues to have metabolic acidosis which improved compared to yesterday. Patient is undergoing peritoneal dialysis remains on epinephrine, propofol drip , IV heparin for possible non-ST elevation myocardial infarction, on antibiotics meropenem and vancomycin with the so for negative cultures, very minimal urine output, hypotension improved, possibility of a superimposed cardiac sharp with bilateral pleural effusions 08/29/2017 Patient is off sedation undergoing weaning trials, on 1 g of epinephrine. Patient is awake and arousable intubated on BiPAP through ventilator 08/30/17 reintubated last night with FiO2 at 70%/+8 of PEEP. Chest x-ray reporting increasing lung opacity's, worsening edema and or infiltrates. Maintained on DIprova, heparin and Levophed drips. Troponin up to 9.5. Minimal urine output. Peritoneal dialysis cultures reporting enterococcus. Potential hemodialysis being discussed. Telemetry sinus rhythm. 08/31/17 remains vent dependent. CXR and ABGs improving. FiO2 decreased to 50% and PEEP decreased down to 5%. No weaning trials, yet. Tube feedings being initiated. Bicarb 22. PD changed to every 4 hours with solution adjusted as per nephrology. Levophed down to 7 mics. Maintained on Merrem and vancomycin, peritoneal cultures positive for enterococcus D, final results pending. 09/01/17 continues on antibiotics for enterococcus faecalis peritonitis. remains vent dependent, FiO2 decreased to 40%/+5 of PEEP. ABGs improved. Maintain on heparin, diprovan and Levophed drips. Prior chest ultrasound reported bilateral pleural effusions greater on the left with largest pocket 8.3 cm. Chest x-ray reporting bilateral consolidation, pleural effusions, small amount of subcutaneous emphysema along right lateral chest wall. Chest ultrasound repeated with both left and right-sided marked for possible thoracentesis. Paroximal A. fib, currently sinus rhythm. Pulmonary discussing possible weaning parameters. Tube feeds at goal with minimal to no residuals. 09/02/2017 Patient remained on mechanical ventilator. Changed to per support and is starting to wean off from in today. Patient is able to open her eyes and could not follow any commands. Chest x-ray showed improvement in left pleural effusion. Pulmonary is now planning for thoracentesis at this time. Patient is off pressors support. Patient is being continued on vancomycin for enterococcus fecaliths in the peritoneal fluid. Meropenem has been discontinued. Pulmonary and ID is following. 09/13/2017 Patient was extubated today. Otherwise still confused but able to move her extremities. Could not able to communicate at this time. Patient is generally weak and unable to tolerate oral diet and currently on nothing by mouth. Chest x-ray showed improvement. Patient is being continued on antibiotics otherwise. Peritoneal dialysis every 6 hourly. Review of systems could not be obtained from the patient. Current medications reviewed. Objective - Vital Signs Vital signs: Vital Signs Temp 98.7 F 09/03/17 16:00 Pulse 96 09/03/17 16:00 Resp 19 09/03/17 16:00 BP 115/60 09/03/17 05:00 Pulse Ox 99 09/03/17 16:00 Intake & Output 09/02/17 09/03/17 09/03/17 18:59 06:59 18:59 Intake Total 1196 856 598 Output Total 106 89 102 Balance 1090 767 496 Weight 69.3 kg 69.4 kg Intake: IV 470 220 460 Calcium Chloride 1,000 mg 100 In Sodium Chloride 0.9% 100 ml @ 100 mls/hr IVPB ONCE [facility] Rx#:[id number] Meropenem 500 mg In 50 Sodium Chloride 0.9% 50 ml @ 100 mls/hr IVPB Q24HR [facility] Rx#:[id number] Potassium Chloride 20 meq 300 In Water For Injection 1 100ml.bag @ 50 mls/hr IVPB Q1H [facility] Rx#: [id number] sodium chloride 0.9% 1, 120 120 460 000 ml KVO Tube Feeding 606 576 108 Other 120 60 30 Output: Urine 106 89 102 Other: Voiding Method Indwelling Catheter Indwelling Catheter Indwelling Catheter # Bowel Movements 1 ABP, PAP, CO, CI - Last Documented Arterial Blood Pressure 100/45 - Exam GENERAL: Intubated and sedated on Diprovan HEENT: Pupils are round and equally reacting to light. EOMI. No scleral icterus. No conjunctival pallor. Normocephalic, atraumatic. No pharyngeal erythema. No thyromegaly. CARDIOVASCULAR: S1 and S2 present. No murmurs, rubs, or gallops. Tachycardic PULMONARY: Good air entry treatment with mechanical ventilator . Scattered rhonchi and bibasilar crackles are appreciated ABDOMEN: Soft, nontender, nondistended, normoactive bowel sounds. No palpable organomegaly. PD catheter present. MUSCULOSKELETAL: No joint swelling or deformity. EXTREMITIES: Multiple ulcerations in bilateral lower limbs and wounds please refer to nursing documentation for further details, markedly diminished bilateral dorsalis pedis pulses. Toes of bilateral feet dark purple. Black, Necrotic digits on bilateral hands involving right fourth finger and left third and fourth fingers.Stage II Right Buttock-nondraining. NEUROLOGICAL: Currently unable to assess, sedated SKIN: No rashes. - Labs CBC & Chem 7: 09/04/17 04:50 09/04/17 04:50 Labs: Abnormal Lab Results - Last 24 Hours (Table) 09/02/17 09/03/17 09/03/17 Range/Units 17:29 00:05 04:00 WBC 15.5 H (3.8-10.6) k/uL RBC 2.78 L (3.80-5.40) m/uL Hgb 8.1 L (11.4-16.0) gm/dL Hct 25.3 L (34.0-46.0) % ABG pH (7.35-7.45) ABG pCO2 (35-45) mmHg ABG pO2 (83-108) mmHg ABG HCO3 (21-25) mmol/L ABG Total CO2 (19-24) mmol/L ABG O2 Saturation (94-97) % Sodium (137-145) mmol/L Chloride (98-107) mmol/L BUN (7-17) mg/dL Creatinine (0.52-1.04) mg/dL Glucose (74-99) mg/dL POC Glucose (mg/dL) 240 H 283 H (75-99) mg/dL Calcium (8.4-10.2) mg/dL Phosphorus (2.5-4.5) mg/dL Total Bilirubin (0.2-1.3) mg/dL Total Protein (6.3-8.2) g/dL Albumin (3.5-5.0) g/dL 09/03/17 09/03/17 09/03/17 Range/Units 04:00 05:52 07:22 WBC (3.8-10.6) k/uL RBC (3.80-5.40) m/uL Hgb (11.4-16.0) gm/dL Hct (34.0-46.0) % ABG pH 7.50 H (7.35-7.45) ABG pCO2 34 L (35-45) mmHg ABG pO2 151 H (83-108) mmHg ABG HCO3 26 H (21-25) mmol/L ABG Total CO2 27 H (19-24) mmol/L ABG O2 Saturation 98.4 H (94-97) % Sodium 130 L (137-145) mmol/L Chloride 95 L (98-107) mmol/L BUN 54 H (7-17) mg/dL Creatinine 3.20 H (0.52-1.04) mg/dL Glucose 244 H (74-99) mg/dL POC Glucose (mg/dL) 203 H (75-99) mg/dL Calcium 7.1 L (8.4-10.2) mg/dL Phosphorus 5.7 H (2.5-4.5) mg/dL Total Bilirubin <0.1 L (0.2-1.3) mg/dL Total Protein 3.8 L (6.3-8.2) g/dL Albumin 1.6 L (3.5-5.0) g/dL 09/03/17 Range/Units 12:34 WBC (3.8-10.6) k/uL RBC (3.80-5.40) m/uL Hgb (11.4-16.0) gm/dL Hct (34.0-46.0) % ABG pH (7.35-7.45) ABG pCO2 (35-45) mmHg ABG pO2 (83-108) mmHg ABG HCO3 (21-25) mmol/L ABG Total CO2 (19-24) mmol/L ABG O2 Saturation (94-97) % Sodium (137-145) mmol/L Chloride (98-107) mmol/L BUN (7-17) mg/dL Creatinine (0.52-1.04) mg/dL Glucose (74-99) mg/dL POC Glucose (mg/dL) 127 H (75-99) mg/dL Calcium (8.4-10.2) mg/dL Phosphorus (2.5-4.5) mg/dL Total Bilirubin (0.2-1.3) mg/dL Total Protein (6.3-8.2) g/dL Albumin (3.5-5.0) g/dL Microbiology - Last 24 Hours (Table) 08/27/17 11:00 Blood Culture - Final Blood No Growth after 144 hours Assessment and Plan Assessment: -Acute abdominal sepsis secondary to peritonitis,possibly related to PD catheter -though initial white count 170 with repeat PD fluid cell count 35, peritoneal fluid positive for enterococcus faecialis. -Septic shock with possibility of cardiogenic shock secondary to acute NSTEMI. Severe cardiomyopathy ejection fraction of around 25%. -Acute hypotension secondary to the above, pressor dependent. 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 Plan: Continue on current medication regime ,monitoring and symptomatic treatment. Antibiotics/Wound Care as per ID. pulmonary and ID is following. Follow closely with multiple consults. Patient's overall prognosis is poor. Time with Patient: Greater than 30
--- NOTE | 2017-09-04 21:30 | P.PN ---
Subjective Progress Note Date: 09/04/17 Principal diagnosis: Peritonitis and sepsis 65-year-old the being treated for acute respiratory failure secondary to sepsis source unclear possibly lower limb ulcerations or peritonitis. Patient remains intubated patient is presently on 40% FiO2 PEEP of 5 and tidal volume of 500 continues to have metabolic acidosis which improved compared to yesterday. Patient is undergoing peritoneal dialysis remains on epinephrine, propofol drip , IV heparin for possible non-ST elevation myocardial infarction, on antibiotics meropenem and vancomycin with the so for negative cultures, very minimal urine output, hypotension improved, possibility of a superimposed cardiac sharp with bilateral pleural effusions 08/29/2017 Patient is off sedation undergoing weaning trials, on 1 g of epinephrine. Patient is awake and arousable intubated on BiPAP through ventilator 08/30/17 reintubated last night with FiO2 at 70%/+8 of PEEP. Chest x-ray reporting increasing lung opacity's, worsening edema and or infiltrates. Maintained on DIprova, heparin and Levophed drips. Troponin up to 9.5. Minimal urine output. Peritoneal dialysis cultures reporting enterococcus. Potential hemodialysis being discussed. Telemetry sinus rhythm. 08/31/17 remains vent dependent. CXR and ABGs improving. FiO2 decreased to 50% and PEEP decreased down to 5%. No weaning trials, yet. Tube feedings being initiated. Bicarb 22. PD changed to every 4 hours with solution adjusted as per nephrology. Levophed down to 7 mics. Maintained on Merrem and vancomycin, peritoneal cultures positive for enterococcus D, final results pending. 09/01/17 continues on antibiotics for enterococcus faecalis peritonitis. remains vent dependent, FiO2 decreased to 40%/+5 of PEEP. ABGs improved. Maintain on heparin, diprovan and Levophed drips. Prior chest ultrasound reported bilateral pleural effusions greater on the left with largest pocket 8.3 cm. Chest x-ray reporting bilateral consolidation, pleural effusions, small amount of subcutaneous emphysema along right lateral chest wall. Chest ultrasound repeated with both left and right-sided marked for possible thoracentesis. Paroximal A. fib, currently sinus rhythm. Pulmonary discussing possible weaning parameters. Tube feeds at goal with minimal to no residuals. 09/02/2017 Patient remained on mechanical ventilator. Changed to per support and is starting to wean off from in today. Patient is able to open her eyes and could not follow any commands. Chest x-ray showed improvement in left pleural effusion. Pulmonary is now planning for thoracentesis at this time. Patient is off pressors support. Patient is being continued on vancomycin for enterococcus fecaliths in the peritoneal fluid. Meropenem has been discontinued. Pulmonary and ID is following. 09/03/2017 Patient was extubated today. Otherwise still confused but able to move her extremities. Could not able to communicate at this time. Patient is generally weak and unable to tolerate oral diet and currently on nothing by mouth. Chest x-ray showed improvement. Patient is being continued on antibiotics otherwise. Peritoneal dialysis every 6 hourly. 09/04/2017 Patient is extubated and is oxygenating well on nausea cannula. Mental status otherwise system confused and could not able to speak at this time. Patient is able to open her eyes and follow simple commands. CT head was done showed no acute intracranial process. No change from prior study Chest x-ray showed right basilar opacity and could represent atelectasis or pneumonia. Neurology was consulted for further evaluation. WBC 14, BUN 51 creatinine 3.29 Discussed with the family at bedside. Review of systems could not be obtained from the patient. Current medications reviewed. Objective - Vital Signs Vital signs: Vital Signs Temp 98.3 F 09/04/17 18:00 Pulse 93 09/04/17 20:11 Resp 15 09/04/17 19:00 BP 100/45 09/04/17 18:00 Pulse Ox 100 09/04/17 19:49 Intake & Output 09/04/17 09/04/17 09/05/17 06:59 18:59 06:59 Intake Total 110 360.5 10 Output Total 55 92 10 Balance 55 268.5 0 Weight 62.5 kg Intake: IV 110 360 10 sodium chloride 0.9% 1, 110 360 10 000 ml KVO Intake, IV Titration 0.5 Amount Norepinephrin 16 mg-0.9% 0.5 Ns Pmx 16 mg In 250 ml @ Titrate IV .Q0M [facility] Rx#: [id number] Output: Urine 55 92 10 Other: Voiding Method Indwelling Catheter Indwelling Catheter ABP, PAP, CO, CI - Last Documented Arterial Blood Pressure 120/52 - Exam GENERAL: Patient awake alert but could not communicate/speak. Follow simple commands but very confused. HEENT: Pupils are round and equally reacting to light. EOMI. No scleral icterus. No conjunctival pallor. Normocephalic, atraumatic. No pharyngeal erythema. No thyromegaly. CARDIOVASCULAR: S1 and S2 present. No murmurs, rubs, or gallops. Tachycardic PULMONARY: Good air entry treatment with mechanical ventilator . Scattered rhonchi and bibasilar crackles are appreciated ABDOMEN: Soft, nontender, nondistended, normoactive bowel sounds. No palpable organomegaly. PD catheter present. MUSCULOSKELETAL: No joint swelling or deformity. EXTREMITIES: Multiple ulcerations in bilateral lower limbs and wounds please refer to nursing documentation for further details, markedly diminished bilateral dorsalis pedis pulses. Toes of bilateral feet dark purple. Black, Necrotic digits on bilateral hands involving right fourth finger and left third and fourth fingers.Stage II Right Buttock-nondraining. NEUROLOGICAL: Currently unable to assess. SKIN: No rashes. - Labs CBC & Chem 7: 09/04/17 04:50 09/04/17 04:50 Labs: Abnormal Lab Results - Last 24 Hours (Table) 09/04/17 09/04/17 09/04/17 Range/Units 00:11 04:50 04:50 WBC 14.8 H (3.8-10.6) k/uL RBC 2.73 L (3.80-5.40) m/uL Hgb 8.0 L (11.4-16.0) gm/dL Hct 24.9 L (34.0-46.0) % Sodium 136 L (137-145) mmol/L BUN 51 H (7-17) mg/dL Creatinine 3.29 H (0.52-1.04) mg/dL POC Glucose (mg/dL) 107 H (75-99) mg/dL Calcium 7.5 L (8.4-10.2) mg/dL Phosphorus 4.6 H (2.5-4.5) mg/dL AST 50 H (14-36) U/L Total Protein 4.2 L (6.3-8.2) g/dL Albumin 1.8 L (3.5-5.0) g/dL 09/04/17 09/04/17 Range/Units 12:21 18:21 WBC (3.8-10.6) k/uL RBC (3.80-5.40) m/uL Hgb (11.4-16.0) gm/dL Hct (34.0-46.0) % Sodium (137-145) mmol/L BUN (7-17) mg/dL Creatinine (0.52-1.04) mg/dL POC Glucose (mg/dL) 224 H 182 H (75-99) mg/dL Calcium (8.4-10.2) mg/dL Phosphorus (2.5-4.5) mg/dL AST (14-36) U/L Total Protein (6.3-8.2) g/dL Albumin (3.5-5.0) g/dL Assessment and Plan Assessment: -Possible metabolic/anoxic ENCEPHALOPATHY -Acute abdominal sepsis secondary to peritonitis with enterococcus fecaliths., possibly related to PD catheter-though initial white count 170 with repeat PD fluid cell count 35, peritoneal fluid positive for enterococcus faecialis. -Septic shock with possibility of cardiogenic shock secondary to acute NSTEMI. Severe cardiomyopathy ejection fraction of around 25%. -Acute hypotension secondary to the above, pressor dependent. 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 Plan: Continue on current medication regime ,monitoring and symptomatic treatment. Antibiotics/Wound Care as per ID. pulmonary and ID is following. Follow closely with multiple consults. Patient's overall prognosis is poor. Time with Patient: Greater than 30
[2017-09-04] MEDS: INSULIN DETEMIR 100 UNIT/ML 10 ML VIAL SQ SCH (21:38)
[2017-09-04 23:54] LABS: Glucose,Whole Blood 154 mg/dL (75-99)
[2017-09-05] MEDS: INSULIN ASPART 100 UNIT/ML 1 ML 10 ML VIAL SQ SCH ×4 (00:02→17:24)
[2017-09-05] MEDS: MORPHINE SULFATE 2 MG/ML SYRINGE IVP PRN (03:20)
[2017-09-05] MEDS: ACETAMINOPHEN IV (For NPO) 1,000 MG in EMPTY BAG 1 BAG IVPB PRN (04:18)
[2017-09-05 05:12] LABS: Glucose,Whole Blood 35 mg/dL (75-99)
[2017-09-05 05:12] LABS: Glucose,Whole Blood 34 mg/dL (75-99)
[2017-09-05] MEDS: DEXTROSE 50%-WATER 50 ML SYRINGE IVP ONE ×2 (05:15→06:08)
[2017-09-05 05:20] LABS: HGB 7.7 gm/dL (11.4-16.0); MCH 29.6 pg (25.0-35.0); MCHC 31.9 g/dL (31.0-37.0); MCV 92.8 fL (80.0-100.0); Mean Platelet Volume 7.3; Platelet Count 287 k/uL (150-450); RBC 2.59 m/uL (3.80-5.40); RDW 14.2 % (11.5-15.5); WBC 18.4 k/uL (3.8-10.6)
[2017-09-05 05:26] LABS: Glucose,Whole Blood 107 mg/dL (75-99)
[2017-09-05 05:33] LABS: Albumin 1.8 g/dL (3.5-5.0); Calcium 7.6 mg/dL (8.4-10.2); Magnesium 1.9 mg/dL (1.6-2.3); Phosphorus 6.1 mg/dL (2.5-4.5); Potassium 3.5 mmol/L (3.5-5.1); Total Bilirubin 0.2 mg/dL (0.2-1.3); Total Protein 4.3 g/dL (6.3-8.2)
[2017-09-05] MEDS: DIALYSIS (PERIT 2.5%) 2,000 ML 50 G/2,000 ML BAG INTRAPERIT SCH (05:41)
[2017-09-05 06:04] LABS: Glucose,Whole Blood 56 mg/dL (75-99)
[2017-09-05 06:27] LABS: Glucose,Whole Blood 119 mg/dL (75-99)
[2017-09-05] MEDS ORDERED: POTASSIUM CHLORIDE 20 MEQ in WATER FOR INJECTION 1 100ML.BAG IVPB ONE (07:00)
[2017-09-05 07:33] LABS: Glucose,Whole Blood 105 mg/dL (75-99)
--- NOTE | 2017-09-05 07:35 | XR ---
EXAMINATION: XR chest 1V portable DATE AND TIME: 09/05/2017 7:05 AM ORDERING PROVIDER: Festus Curran MD~[id number] CLINICAL INDICATION: shortness of breath TECHNIQUE: AP portable supine COMPARISON: 09/04/2017 at 4:53 AM DESCRIPTION: Sternal sutures and mediastinal clips and EKG leads noted. Elevated hemidiaphragms consistent with low lung inflation at the moment of x-ray exposure. Prominent overlying soft tissues. There is [id number] silhouetting of the pulmonary vasculature by a fine reticular pattern of in creased density throughout the lungs. This suggests mild interstitial phase pulmonary edema. Pleural spaces negative as seen, but the radiograph is taken in the supine patient position. Cardiac silhouette does not appear enlarged. Bones are unremarkable. Note: Supine sonography cannot exclude pneumothorax or pneumoperitoneum. IMPRESSION: MILD INTERSTITIAL PHASE PULMONARY EDEMA, SUPINE RADIOGRAPHIC EXAM.
[2017-09-05] MEDS: SEVELAMER 800 MG TAB PO SCH ×3 (07:59→15:59)
[2017-09-05] MEDS: MIDODRINE 5 MG TAB PO SCH ×2 (08:00→15:59)
[2017-09-05] MEDS: METOPROLOL TARTRATE 12.5 MG TAB PO SCH (08:00)
[2017-09-05] MEDS: LEVOTHYROXINE IVP 100 MCG/5 ML VIAL IV SCH (08:09)
[2017-09-05] MEDS: HEPARIN SODIUM,PORCINE 5,000 UNIT/ML 1 ML VIAL SQ SCH ×2 (08:09→21:46)
[2017-09-05] MEDS: PANTOPRAZOLE 40 MG/10 ML VIAL IVP SCH (08:09)
[2017-09-05] MEDS: ASPIRIN 300 MG SUPP RECTAL SCH (08:10)
[2017-09-05] MEDS: IPRATROPIUM-ALBUTEROL 3 ML NEB INHALATION SCH ×4 (08:44→20:23)
[2017-09-05 10:54] LABS: Glucose,Whole Blood 59 mg/dL (75-99)
[2017-09-05 10:56] LABS: Glucose,Whole Blood 55 mg/dL (75-99)
[2017-09-05] MEDS ORDERED: DEXTROSE 50%-WATER 50 ML SYRINGE IVP ONE (10:57)
[2017-09-05] MEDS: SODIUM CHLORIDE 0.9% 1,000 ML IV SCH (11:01)
[2017-09-05 11:15] LABS: Glucose,Whole Blood 123 mg/dL (75-99)
--- NOTE | 2017-09-05 11:49 | US ---
EXAMINATION TYPE: US carotid duplex BILAT DATE OF EXAM: 09/05/2017 COMPARISON: NONE CLINICAL HISTORY: AMS. Difficult exam as patient was done portable in the ICA. Altered mental status- patient constantly moving during exam EXAM MEASUREMENTS: RIGHT: Peak Systolic Velocity (PSV) cm/sec ----- Right CCA: 52.2 ----- Right ICA: 62.4 ----- Right ECA: 68.2 ICA/CCA ratio: 1.2 RIGHT: End Diastole cm/sec ----- Right CCA: 12.9 ----- Right ICA: 15.9 ----- Right ECA: 7.1 LEFT: Peak Systolic Velocity (PSV) cm/sec ----- Left CCA: 45.7 ----- Left ICA: 68.7 ----- Left ECA: 75.5 ICA/CCA ratio: 1.5 LEFT: End Diastole cm/sec ----- Left CCA: 9.1 ----- Left ICA: 25.1 ----- Left ECA: 10.2 VERTEBRALS (direction of flow): Right Vertebral: Antegrade Left Vertebral: Antegrade Rhythm: Normal IMPRESSION: MILD/MODERATE AMOUNT OF PLAQUE VISUALIZED IN THE LEFT BULB/PROXIMAL ICA. NO ELEVATED VELOCITIES. NO S IGNIFICANT STENOSIS.
--- NOTE | 2017-09-05 12:14 | P.PN ---
Subjective Principal diagnosis: This is a 67-year-old female with ESRD on peritoneal dialysis admitted with sepsis and had enterococcal peritonitis. She was extubated 09/03/17 day before yesterday. Because of low blood pressure yesterday I cut her PD fluid exchanges to 4 a day from 6 , and changed it from 2.5 and 4.25% alternating to all 2.5%, volume remained the same at 2000 mL[address] Also discussed with Dr. Lezama regarding starting dobutamine or levo fed but elected to his discretion. She has tachycardia but also has gangrene of her fingers. She was started on small doses of levo fed yesterday and has been maintained at small doses. This morning she came off of that. The target map is about 60. This morning her blood pressure is in the 90s to 114 range. Heart rate in the 80s. 24-hour intake is documented as intake is 636 output of 469.s Her white count has gone up to 18,400, hemoglobin is down a bit from 8 to 7.7 He maintains a ultrafiltration of about 300-500 mL per exchanges in spite of using only 2.5%. This morning she seems little bit more awake alert and able to respond. She was still unable to name her friend was in the room at this time. She is profoundly weak Objective - Vital Signs Vital signs: Vital Signs Temp 99.2 F 09/05/17 08:00 Pulse 84 09/05/17 11:56 Resp 16 09/05/17 11:00 BP 122/47 09/05/17 06:41 Pulse Ox 97 09/05/17 11:00 Intake & Output 09/04/17 09/05/17 09/05/17 18:59 06:59 18:59 Intake Total 360.5 275.758 187.422 Output Total 92 75 44 Balance 268.5 200.758 143.422 Weight 60.4 kg 60.4 kg Intake: IV 360 230 160 ACETAMINOPHEN IV (For NPO 100 ) 1,000 mg In Empty Bag 1 bag @ 400 mls/hr IVPB Q6HR PRN Rx#:[id number] Potassium Chloride 20 meq 100 In Water For Injection 1 100ml.bag @ 50 mls/hr IVPB ONCE ONE Rx#: [id number] Sodium Chloride 0.9% 1, 60 000 ml @ 30 mls/hr IV . Q24H [facility] Rx#:[id number] sodium chloride 0.9% 1, 360 130 000 ml KVO Intake, IV Titration 0.5 45.758 27.422 Amount Norepinephrin 16 mg-0.9% 0.5 45.758 27.422 Ns Pmx 16 mg In 250 ml @ Titrate IV .Q0M [facility] Rx#: [id number] Output: Urine 92 75 44 Other: Voiding Method Indwelling Catheter Indwelling Catheter Indwelling Catheter ABP, PAP, CO, CI - Last Documented Arterial Blood Pressure 98/39 On examination she is awake alert follows command but is unable to recall her friend's name was in the room HEENT exam no JVP neck is supple no facial asymmetry Lungs are significant for somewhat diminished breath sounds bilaterally but no crackles. Fair air entry. Heart sounds are unremarkable no murmur rub gallop Abdomen is soft nontender Extremity exam was no edema Fingers of both hands are gangrenous and the hips. Neurologically awake alert but profoundly weak unable to sit up even with help - Labs CBC & Chem 7: 09/05/17 05:10 09/05/17 05:10 Labs: Abnormal Lab Results - Last 24 Hours (Table) 09/04/17 09/04/17 09/04/17 Range/Units 12:21 18:21 23:53 WBC (3.8-10.6) k/uL RBC (3.80-5.40) m/uL Hgb (11.4-16.0) gm/dL Hct (34.0-46.0) % BUN (7-17) mg/dL Creatinine (0.52-1.04) mg/dL Glucose (74-99) mg/dL POC Glucose (mg/dL) 224 H 182 H 154 H (75-99) mg/dL Calcium (8.4-10.2) mg/dL Phosphorus (2.5-4.5) mg/dL AST (14-36) U/L Total Protein (6.3-8.2) g/dL Albumin (3.5-5.0) g/dL 09/05/17 09/05/17 09/05/17 Range/Units 05:07 05:10 05:10 WBC 18.4 H (3.8-10.6) k/uL RBC 2.59 L (3.80-5.40) m/uL Hgb 7.7 L (11.4-16.0) gm/dL Hct 24.0 L (34.0-46.0) % BUN 47 H (7-17) mg/dL Creatinine 3.50 H (0.52-1.04) mg/dL Glucose 29 L* (74-99) mg/dL POC Glucose (mg/dL) 35 L (75-99) mg/dL Calcium 7.6 L (8.4-10.2) mg/dL Phosphorus 6.1 H (2.5-4.5) mg/dL AST 73 H (14-36) U/L Total Protein 4.3 L (6.3-8.2) g/dL Albumin 1.8 L (3.5-5.0) g/dL 09/05/17 09/05/17 09/05/17 Range/Units 05:10 05:25 06:01 WBC (3.8-10.6) k/uL RBC (3.80-5.40) m/uL Hgb (11.4-16.0) gm/dL Hct (34.0-46.0) % BUN (7-17) mg/dL Creatinine (0.52-1.04) mg/dL Glucose (74-99) mg/dL POC Glucose (mg/dL) 34 L 107 H 56 L (75-99) mg/dL Calcium (8.4-10.2) mg/dL Phosphorus (2.5-4.5) mg/dL AST (14-36) U/L Total Protein (6.3-8.2) g/dL Albumin (3.5-5.0) g/dL 09/05/17 09/05/17 09/05/17 Range/Units 06:25 07:30 10:53 WBC (3.8-10.6) k/uL RBC (3.80-5.40) m/uL Hgb (11.4-16.0) gm/dL Hct (34.0-46.0) % BUN (7-17) mg/dL Creatinine (0.52-1.04) mg/dL Glucose (74-99) mg/dL POC Glucose (mg/dL) 119 H 105 H 59 L (75-99) mg/dL Calcium (8.4-10.2) mg/dL Phosphorus (2.5-4.5) mg/dL AST (14-36) U/L Total Protein (6.3-8.2) g/dL Albumin (3.5-5.0) g/dL 09/05/17 09/05/17 Range/Units 10:55 11:14 WBC (3.8-10.6) k/uL RBC (3.80-5.40) m/uL Hgb (11.4-16.0) gm/dL Hct (34.0-46.0) % BUN (7-17) mg/dL Creatinine (0.52-1.04) mg/dL Glucose (74-99) mg/dL POC Glucose (mg/dL) 55 L 123 H (75-99) mg/dL Calcium (8.4-10.2) mg/dL Phosphorus (2.5-4.5) mg/dL AST (14-36) U/L Total Protein (6.3-8.2) g/dL Albumin (3.5-5.0) g/dL Assessment and Plan Assessment: Impression 1. End-stage renal failure on peritoneal dialysis, currently on 2.5% 4 exchanges, change from alternating 2.5 and 4.25% as of yesterday 09/04/2017 because of hypovolemia and low blood pressure. In spite of this she is still maintaining ultrafiltration of about 300-500 mL and is on small doses of levo fed 2. Hypotensive, secondary to cardiomyopathy ejection fraction 25-30%. 3. Extubated day before yesterday, 09/04/2079. 4. Anemia with hemoglobin stable 5. Severe cardiomyopathy 6. Profound weakness Recommendation. 1. Maintain levo fed small doses. 2. Change PD exchanges from 2.5% 1.5% and maintain the 4 exchanges per day at 2000 mL each to reduce the ultrafiltration volume. She is not eating at all. 3. Failed swallow test therefore not on by mouth medications and not on Minitran 4. Monitor labs including CBC calcium phosphorus, magnesium about once or twice a week. 5. Discontinue Munroe catheter and monitor urine output by bladder scan acute a.m. 6. Straight cath if more than 2 50 mL.
[2017-09-05] MEDS: DIALYSIS (PERIT 1.5%) 2,000 ML 30 G/2,000 ML BAG INTRAPERIT SCH ×2 (12:24→17:47)
--- NOTE | 2017-09-05 12:40 | P.PN ---
Subjective Progress Note Date: 09/05/17 Principal diagnosis: Acute hypoxic respiratory failure secondary to congestive heart failure, systolic in nature, abdominal sepsis. Secondary to enterococcus faecalis This is a 67-year-old female patient with multiple medical problems and comorbidities who presented to ED with acute respiratory distress, intubated and placed on a mechanical ventilator and then moved to the intensive care unit. The patient has taken all of her care at [facility]. She has chronic renal failure and she currently has end stage renal disease and she is seeking kidney transportation the patient has been evaluated at [facility] for potential kidney transplant the daughter being her daughter. This patient lives in [place] and she recently moved in with her daughter living in [facility], and for that reason during this current episode the patient was brought in to our hospital. All of the information was obtained is from the daughters at the bedside This patient has developed renal failure, probably related to previous history of diabetes mellitus. She was started on peritoneal dialysis approximately year ago and she does nighttime cycler continuous with a 1.5 fluid exchange. This was started on high-dose in November 2016. Hemodialysis was considered and the patient was about to have a left upper extremity AV fistula. The fistula itself got clotted and the patient developed also ulceration in her digits bilaterally and for that reason this was not pursued. Currently the patient is gangrenous necrotic digits of the middle fingers of the left and the fourth finger on the right, affecting the tips. This was investigated at length at [facility]. The patient underwent a CT angios of the entire chest abdomen pelvis and extremities and she was found to have no significant subclavian axillary or brachial artery narrowing. She was found to have diffuse atherosclerosis with calcification of the bilateral radial and ulnar arteries and mild to moderate narrowing in the areas affecting the wrist. Atherosclerotic changes were also seen in the infrarenal abdominal aortic area which was estimated to be severe. Bilateral iliofemoral atherosclerotic changes were also seen. The patient was told to have small vessel disease and based on the reported history there was no evidence of any embolic phenomena or vasculitis The patient is known to have coronary artery disease and she has undergone pleased bypass surgery. She was morbidly obese and she was diabetic. She has undergone gastric bypass surgery more than 6 years ago and she has lost considerable amount of weight and during this time the patient was taken off as soon as she improved in terms of her blood sugar control and she started having episodes of hypoglycemia. Currently she is off anticoagulation. She also has chronic atrial fibrillation, chronic renal failure and currently she is on peritoneal dialysis, she hasn't complications of hyperkalemia, and she has history of hypertension, hyperlipidemia, hypothyroidism, peripheral vascular disease and previous history of coronary artery disease and myocardial infarction. The patient was at her daughter's home where she was feeling weak. In the ending machine operator hours the patient was found by the daughter collapsed in the bathroom. No reported chest pain or palpitations. No focal neurological deficit. The patient was lethargic and she was arousable and she was able to speak. She was moving all 4 extremities according to the history. No fever. No chills. No cough or sputum production. No nausea, vomiting or abdominal pain. The PD catheter was apparently functional. No skin rashes. Necrotic digits were seen bilaterally and these are dry gangrene. In the ED, the patient was found to be hypotensive postintubation. The patient was started on IV fluids and pressors. The patient was started on epinephrine infusion. She was intubated and blood gas showed severe metabolic acidosis. The chest x-ray shows cardiomegaly and pulmonary vessel congestion. ET tube was in a good location. No consolidation . Meanwhile, the patient's white cell count was at 14.2. The patient had a potassium level of 6.5 was being treated in the emergency department with a combination of Kayexalate, D50 and insulin and bicarb and the patient was severely acidotic with anion gap metabolic acidosis with a gap of 26 and a bicarb level of 5, creatinine of 9.4, and a troponin level of 1.2. EKG is not showing any acute ischemic abnormalities and is showing a normal sinus rhythm with a left bundle-branch block pattern. Subsequent potassium level was 7.1. Waldemar saw the patient in the ICU and we're going to start peritoneal dialysis. Meanwhile the patient is being resuscitated IV fluids. We'll start empiric antibiotic coverage. We'll monitor cardiac enzymes and obtain an echocardiogram. The computed tomography scan of the brain and C-spine showed no evidence of acute fracture and there was no evidence of any acute intracranial hemorrhage. On 08/28/2018 I'm seeing this patient for a follow-up. This is a very complicated case with present it with severe metabolic acidosis, respiratory failure, hyperkalemia and hypotension. The patient is being seen today in a follow-up. The patient remains sedated on a mechanical ventilator. This morning, she doesn't assist-control at the rate of 22, tidal volume 600, FiO2 of 50% and a PEEP of 5. Blood gases showed a component of acute respiratory alkalosis and the pH was at 7.47 with a pCO2 of 27 and pO2 1:30. Based on that , I dropped the tidal volume down to 500 by mouth I also drop the FiO2 down to 40%. Chest x-ray still showing a component of pulmonary vessel congestion and small bilateral pleural effusion. CT angios the chest was done yesterday and showed cardiomegaly and bilateral pleural effusion and pulmonary vascular congestion. He was no evidence of any pulmonary embolism. The patient is only on few mics of the low-fat for hemodynamic support. Troponin peaked at 7 and the patient is still on IV heparin and aspirin.. The patient had an echocardiogram yesterday that showed severe impaired LV function with an ejection fraction of 25-30%. In addition, there was segmental wall motion abnormalities involving the inferior wall and anteroseptal wall septum. The right ventricular pressure was estimated to be 42 mmHg. There was no significant valvular abnormalities. Left atrium was dilated. There was mild aortic stenosis. The patient had cultures sent and the blood culture and the abdominal fluid culture came back all negative. She remains on a combination of vancomycin and meropenem. Afebrile. White cell count is not elevated. Infected has dropped from 17 down to 11.9. Potassium level has also dropped down to 3.7 and the patient has a bicarb level which is up to 17. Calcium level is at 6.4. Phosphorus level is at 8.1. The patient was receiving abdominal PD 4 times a day with a 1.5% solution. Furthermore, the patient was noted to be somewhat hypothyroid with a TSH of 101 100 and a free T4 of 0.74. She was placed on 100 mg of IV Synthroid on a daily basis. Her hypothermia has also recovered. She is on tube feeds for now. Family is at the bedside. On 08/29/2017, I'm seeing this patient for a follow-up. The patient remains intubated on mechanical ventilator. This morning, she did assist-control mode at a rate of 22, tidal volume 500, FiO2 of 40% and a PEEP of 5. The blood gases still showing a component of respiratory alkalosis with a pH of 7.49 and a pCO2 of 32 and pO2 97. Based on this, I dropped the tidal volume down to 450. The patient will be given a sedation holiday again and we'll check weaning parameters and assess his readiness to wean. Upon yesterday's sedation holiday, the patient woke up last and she was able to follow some simple commands. Hemodynamically, the patient is still requiring 2 mics of epinephrine for blood pressure control. The patient is undergoing peritoneal dialysis with several exchanges on a daily basis with her 2.5% solution. The patient has no fever. No chills. Cultures of been negative. She was covered with a combination of Merrem and vancomycin. White cell count is at 17.4. The serum bicarb is up to 21 and there is no hyperkalemia. No other significant abnormalities otherwise for now. Patient was reevaluated today on 08/30/2017, remains on mechanical ventilation, intubated, sedated, remains on relatively high FiO2 100% which I cut down to 70% , and PEEP is at 8. Patient has abnormal chest x-ray showing interstitial edema , I believe the patient has fluid overload although the possibility of noncardiogenic pulmonary edema is not entirely ruled out, but considering the patient's LV dysfunction and considering she has an EF of 25%, this is most likely cardiogenic pulmonary edema in nature. Patient is not making much urine , she is still under peritoneal dialysis, and I believe we are not able to remove significant amount of fluids to improve her pulmonary status. Patient may eventually require hemodialysis. However she is still on a small dose of levo fed, may be able to cut it down and eventually arrange for hemodialysis. Labs were reviewed WBC count is 21.1 hemoglobin is 9.1 ABG showed a pO2 of 87 pCO2 of 34 pH of 7.38. Basic metabolic profile was reviewed continues to have an iron gap of 18 BUN is 67 creatinine 4.60. Chest x-ray as noted above endotracheal tube is intact and in the proper position. Chest x-ray again is consistent with pulmonary edema. Patient was reevaluated today on 08/31/2017, remains on mechanical ventilation, her ventilator settings are tidal volume of 450, assist control rate of 20 FiO2 is 50%, and PEEP is now at 5. Remains on levo fed at 7 mcg/m. Chest x-ray continues to show interstitial edema, and pleural effusions, slight improvement compared to yesterday's chest x-ray. ABG seems to be a lot better today, pO2 was 205 pCO2 29 pH of 7.51. BUN is 65 creatinine 4.29. Electrolytes otherwise are relatively unremarkable. Bicarb is 22. Patient remains on peritoneal dialysis, urine output is less than 10 mL per hour. Final microbiology report is pending, peritoneal fluid was positive for group D enterococcus. Patient remains on vancomycin and Merrem. Changes may be made once we have a final report on the cultures. Patient remains on propofol drip, not quite ready for any weaning trials. Today I will initiate enteral nutrition. Reevaluated today on 09/01/2017, patient remains on mechanical ventilation, ventilator settings are the same, however I was able to cut down the FiO2 to 40 % today. Remains on 4 g of levo fed, chest x-ray is showing worsening right- sided pleural effusion, hence may consider an ultrasound and thoracentesis. Patient is presently on heparin, if thoracentesis is to be done, will hold the heparin for few hours. Oxygenation is improving, and ABG seems to be better today. Hence I have instructed the nurses to wake up the patient, assess her mental status, assess possibly weaning parameters, and even consider a weaning trial today. Ultrasound was ordered, and may even consider thoracentesis. Patient is on propofol, we will hold the propofol and assess mental status today. ABG showed a pO2 of 128 pCO2 of 32 pH of 7.47. Lactulose were reviewed renal profile was reviewed WBC count is 22.2 hemoglobin is 8.8. Discussed with the undergraduate intern, still the option of hemodialysis is to be considered if the patient does not continue to improve and cannot wean easily. Remains on antibiotics for her Enterococcus faecalis infection/peritonitis. Remains on enteral feeding and is being well-tolerated. Patient was reevaluated today on 09/02/2017, remains on mechanical ventilation, patient is off propofol for the last 24 hours, waking up, but unable to follow simple instructions yet. Opens eyes, but does not show any other responses. Cannot maintain a good eye contact. Chest x-ray has shown a significant improvement. Especially in the left pleural effusion, her gases are excellent, however considering her mental status, the patient is definitely not quite ready to be extubated at this point yet. No plans to do thoracentesis on this patient at this point. ABG showed a pO2 of 88 pCO2 of 27 pH of 7.60, patient is on 40% FiO2, and the same vent settings as noted above including tidal volume of 450, her rate was cut down to 12, and her FiO2 remains at 40% and PEEP is at 5. She is off norepinephrine. I switch the patient to a pressure support of 8 and CPAP, it is well-tolerated, however again considering her mental status him not quite ready to extubate the patient at this point yet. All labs were reviewed. Cultures from the peritoneal fluid were reviewed. Patient remains on vancomycin. Merrem was discontinued. Patient was reevaluated today on 09/03/2017, has been on pressure support and CPAP overnight, patient is doing well, her tidal volume is excellent, and her respiratory rate is in the teens. Her ABG was reviewed this morning, chest x- ray was reviewed, there is definite improvement in her chest x-ray and her oxygenation, patient is a bit more awake, follows simple instructions, but not fully 100% awake. She seems to be generally weak, and cannot have a good cough. Considering her overall clinical picture, I felt it would be the best time at this point to extubate the patient. Family was made aware of her overall condition, family is at bedside, we've and discussed the CODE STATUS and possible reintubation if she fails. If the patient is to be reintubated, they are well aware that she will eventually require tracheostomy if she does fail this time. Reviewed her chest x-ray, reviewed all the labs ABG, weaning parameters, and proceeded to extubating the patient to a nasal cannula. ABG on pressure support and CPAP showed a pO2 of 151 pCO2 of 34 pH of 7.50. CBC is relatively unremarkable, hemoglobin is a bit low but not unexpected considering her renal failure. Reevaluated today on 09/04/2017, patient tolerated extubation well, however her mental status seems to be a bit concerning. Patient is following very simple instructions like opening eyes and closing eyes, sometimes may wiggle her toes upon request, however not squeezing hands, and clearly does not seem to be alert or oriented. CT of the brain was done, came back basically nondiagnostic. Neurological consultation was initiated. Patient has been off narcotics and sedatives for almost over 2 days. Metabolically, her CBC is relatively unremarkable. And her basic metabolic profile is relatively normal except for BUN of 51 creatinine of 3.29. Family is at bedside, updated on her condition. And updated on the computed tomography scan of the brain findings. Neurology was consulted. Reevaluated today on 09/05/2017, patient is doing much per her today, at least she is showing some neurological responses, minimal communication, able to follow more simple instructions. But overall remains confused. Tries to answer simple questions, squeezing hands, sticking out her tongue were requested , closing eyes, but she remained generally weak and I believe she is still not fully alert and oriented. Continues to have a nasal trumpet in place, and we are using that for suctioning, able to cough when suctioned through the trumpet. Blood pressure was noted a bit low today, hence she is on norepinephrine at 4 mcg/m, I have started her on IV fluid at 50 mL per hour. I have also instructed speech therapy evaluation, and possibly swallow evaluation and maybe start feeding however if she has issues with feeding we'll may have to consider a Dobbhoff tube in this patient. Unable to recognize patient's in the room related to her. CBC showed WBC count of 18.4, electrolytes are normal. BUN is 47 creatinine is 3.50. Blood sugar was noted to be low today, and she received D50. Objective - Vital Signs Vital signs: Vital Signs Temp 98.4 F 09/05/17 12:00 Pulse 83 09/05/17 12:00 Resp 12 09/05/17 12:00 BP 122/47 09/05/17 06:41 Pulse Ox 100 09/05/17 12:00 Intake & Output 09/04/17 09/05/17 09/05/17 18:59 06:59 18:59 Intake Total 360.5 275.758 217.422 Output Total 92 75 49 Balance 268.5 200.758 168.422 Weight 60.4 kg 60.4 kg Intake: IV 360 230 190 ACETAMINOPHEN IV (For NPO 100 ) 1,000 mg In Empty Bag 1 bag @ 400 mls/hr IVPB Q6HR PRN Rx#:[id number] Potassium Chloride 20 meq 100 In Water For Injection 1 100ml.bag @ 50 mls/hr IVPB ONCE ONE Rx#: [id number] Sodium Chloride 0.9% 1, 90 000 ml @ 30 mls/hr IV . Q24H ALEXANDRA Rx#:[id number] sodium chloride 0.9% 1, 360 130 000 ml KVO Intake, IV Titration 0.5 45.758 27.422 Amount Norepinephrin 16 mg-0.9% 0.5 45.758 27.422 Ns Pmx 16 mg In 250 ml @ Titrate IV .Q0M ALEXANDRA Rx#: [id number] Output: Urine 92 75 49 Other: Voiding Method Indwelling Catheter Indwelling Catheter Indwelling Catheter ABP, PAP, CO, CI - Last Documented Arterial Blood Pressure 98/36 - Exam Physical exam revealed a 67-year-old female, chronically ill, in no distress, off mechanical ventilation, on nasal cannula. Head exam was generally normal. There was no scleral icterus or corneal arcus. Mucous membranes were moist. Neck was supple and without jugular venous distension, thyromegaly, or carotid bruits. Carotids were easily palpable bilaterally. There was no adenopathy. Lungs sounds are diminished bilaterally, no crackles or rhonchi or wheezes, Heart sounds irregular irregular rhythm, positive S1-S2, no significant murmurs appreciated. Abdominal exam revealed normal bowel sounds. The abdomen was soft, non-tender, and without masses, organomegaly, or appreciable enlargement of the abdominal aorta. The patient has a PD catheter which is in place and there is no direct tenderness Extremities revealed no edema. Pulses in lower extremities are markedly diminished. The patient has necrotic digits at the tips of the digits involving the third mid finger on the left and the fourth finger on the right. There is evidence of dry gangrene. No evidence of any wound infection. The area is pretty much black and necrotic. No lower extremities edema. No cyanosis. Neurologic : Opens eyes, follows instructions/simple instructions, still confused as to place and time and person. - Labs CBC & Chem 7: 09/05/17 05:10 09/05/17 05:10 Labs: Abnormal Lab Results - Last 24 Hours (Table) 09/04/17 09/04/17 09/04/17 Range/Units 12:21 18:21 23:53 WBC (3.8-10.6) k/uL RBC (3.80-5.40) m/uL Hgb (11.4-16.0) gm/dL Hct (34.0-46.0) % BUN (7-17) mg/dL Creatinine (0.52-1.04) mg/dL Glucose (74-99) mg/dL POC Glucose (mg/dL) 224 H 182 H 154 H (75-99) mg/dL Calcium (8.4-10.2) mg/dL Phosphorus (2.5-4.5) mg/dL AST (14-36) U/L Total Protein (6.3-8.2) g/dL Albumin (3.5-5.0) g/dL 09/05/17 09/05/17 09/05/17 Range/Units 05:07 05:10 05:10 WBC 18.4 H (3.8-10.6) k/uL RBC 2.59 L (3.80-5.40) m/uL Hgb 7.7 L (11.4-16.0) gm/dL Hct 24.0 L (34.0-46.0) % BUN 47 H (7-17) mg/dL Creatinine 3.50 H (0.52-1.04) mg/dL Glucose 29 L* (74-99) mg/dL POC Glucose (mg/dL) 35 L (75-99) mg/dL Calcium 7.6 L (8.4-10.2) mg/dL Phosphorus 6.1 H (2.5-4.5) mg/dL AST 73 H (14-36) U/L Total Protein 4.3 L (6.3-8.2) g/dL Albumin 1.8 L (3.5-5.0) g/dL 09/05/17 09/05/17 09/05/17 Range/Units 05:10 05:25 06:01 WBC (3.8-10.6) k/uL RBC (3.80-5.40) m/uL Hgb (11.4-16.0) gm/dL Hct (34.0-46.0) % BUN (7-17) mg/dL Creatinine (0.52-1.04) mg/dL Glucose (74-99) mg/dL POC Glucose (mg/dL) 34 L 107 H 56 L (75-99) mg/dL Calcium (8.4-10.2) mg/dL Phosphorus (2.5-4.5) mg/dL AST (14-36) U/L Total Protein (6.3-8.2) g/dL Albumin (3.5-5.0) g/dL 09/05/17 09/05/17 09/05/17 Range/Units 06:25 07:30 10:53 WBC (3.8-10.6) k/uL RBC (3.80-5.40) m/uL Hgb (11.4-16.0) gm/dL Hct (34.0-46.0) % BUN (7-17) mg/dL Creatinine (0.52-1.04) mg/dL Glucose (74-99) mg/dL POC Glucose (mg/dL) 119 H 105 H 59 L (75-99) mg/dL Calcium (8.4-10.2) mg/dL Phosphorus (2.5-4.5) mg/dL AST (14-36) U/L Total Protein (6.3-8.2) g/dL Albumin (3.5-5.0) g/dL 09/05/17 09/05/17 Range/Units 10:55 11:14 WBC (3.8-10.6) k/uL RBC (3.80-5.40) m/uL Hgb (11.4-16.0) gm/dL Hct (34.0-46.0) % BUN (7-17) mg/dL Creatinine (0.52-1.04) mg/dL Glucose (74-99) mg/dL POC Glucose (mg/dL) 55 L 123 H (75-99) mg/dL Calcium (8.4-10.2) mg/dL Phosphorus (2.5-4.5) mg/dL AST (14-36) U/L Total Protein (6.3-8.2) g/dL Albumin (3.5-5.0) g/dL Assessment and Plan Assessment: 1 acute hypoxic respiratory failure, multifactorial, The patient has a component of fluid overload and pulmonary vessel congestion small bilateral pleural effusion. The severe metabolic acidosis has resolved. 2 acute hypotension , resolved, and off norepinephrine today. 3 acute non-STEMI DC troponin peaked at 7, still on a combination of aspirin and IV heparin 4 coronary artery disease with previous coronary artery bypass surgery 5 End stage renal disease on hemodialysis via peritoneal dialysis. The patient has been on PD since November 2016. 6 acute hyperkalemia secondary to severe metabolic acidosis, resolved 7 severe anion gap metabolic acidosis, resolved 8 history of obesity status post gastric bypass surgery 9 diabetes mellitus recovered following bariatric surgery and the patient is currently on no diabetic medications 10 hypertension, history of 11 hypothyroidism, chemically still hypothyroid with a TSH of more than 100 and a free T4 of 0.74 and the patient will be kept on IV Synthroid. 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 15 seeking kidney transplantation at [facility] 16 chronic anemia, normocytic 17 hypoproteinemia and hypoalbuminemia 18 hypothermia, recovered 19 severe peripheral vascular disease 20 acute abdominal sepsis the peritoneal fluid is positive for Enterococcus faecalis, vancomycin susceptible. Remains on vancomycin, presently off Merrem Recommendation: Patient was extubated on 09/03/2017, tolerated the extubation well , mental status remains a bit of an issue, nutritional support is another issue , hence I have instructed speech evaluation, and possibly a swallow evaluation. May have to consider a Dobbhoff tube placement. Discussed her condition with family at bedside. Discussed her condition with the undergraduate intern. Patient is still on minimal dose of norepinephrine, hence I will keep her in the ICU for now, and we'll continue to monitor closely. Critical care time is 35 minutes. Time with Patient: Greater than 30
[2017-09-05] MEDS ORDERED: ACETAMINOPHEN IV (For NPO) 1,000 MG in EMPTY BAG 1 BAG IVPB PRN (12:46)
[2017-09-05 13:45] LABS: Glucose,Whole Blood 90 mg/dL (75-99)
--- NOTE | 2017-09-05 14:30 | CT ---
EXAMINATION TYPE: CT brain wo con DATE OF EXAM: 09/05/2017 COMPARISON: 09/04/2017 HISTORY: Altered mental status CT DLP: 2071.8 mGycm Automated exposure control for dose reduction was used. TECHNIQUE: CT scan of the head is performed without contrast. FINDINGS: There is no acute intracranial hemorrhage or midline shift identified. There is diffuse v entricular and sulcal prominence consistent with diffuse age-related cerebral atrophy. Extensive vasc ular calcifications are seen of the intracranial vasculature. There is low-attenuation in the periven tricular white matter consistent with chronic small vessel ischemic change. The globes are intact an d the visualized sinuses are well-aerated. Partially calcified right scalp lesion is incidentally n oted measuring 1.7 cm. Patient is noted to be intubated. IMPRESSION: No acute intracranial hemorrhage or midline shift, unchanged from the prior of 09/04/2017. There is diffuse age-related cerebral atrophy and chronic small vessel ischemic change noted.
--- NOTE | 2017-09-05 16:06 | P.CNNES ---
History of Present Illness Consult date: 09/05/17 Requesting physician: Festus Curran Reason for Consult: Altered Mental Status Chief complaint: Altered Mental Status History of Present Illness: Neurology is consulting on a 67 year old female admitted on 08/27/17 with significant complex medical issues. Patient was admitted through the ED with respiratory distress, diabetes mellitus, hx of peritoneal dialysis, gangrenous necrotic digits. Patient had CT angio of chest, pelvis, abdomen, and extremities and was found to have no significant subclavian or bracial artery narrowing. Diffuse athersclerosis was noted of the bilateral radial and ulnar arteries with mild to moderate narrowing in the wrist. Narrowing of the abdominal aortic area was noted as severe. No evidence of embolic phenomenon or vasculitis. Patient has hx of coronary artery disease with bypass graft. Hx of gastric bypass surgery for obesity noted. Patient also hx of hyperkalemia, hypertension , hyperlipidemia, peripheral vascular disease, coronary artery disease. At home the patient was found weak and collapsed on the bathroom floor. Patient was lethargic but arousable. She was able to move all 4 extremities. In the ED, she was found to be hypotensive. She was given fluids and pressors Epinephrine infusion started. She was intubated and blood gases showed severe metabolic acidosis. Patient had elevated WBC's, severely acidotic, metabolic acidosis present. EKG noted left BBB. Surgery saw the patient and was going to start peritoneal dialysis. Patient was fluid resuscitated, antibiotic therapy started, CT aubrey was performed which showed no acute process. Patient was managed by ICU team through on a ventilator from 08/28/17-09/02-11/13. Patient was extubated but her mental status was concerning to ICU team. Patient would follow simple commands (opening eyes, intermittent wiggling of toes), no squeezing of hands and was not obviously alert or oriented. Patient has been off sedatives and narcotics for over 2 days. CBC is unremarkable, BMP normal except BUN elevated and creatinine. The patient was found resting in bed in no acute distress. Patient was arousable to name and would obey some commands (simple). She is very confused with verbal responses and has a flat affect noted. Patient cannot comprehend many more advanced questions and appears fatigued. Review of Systems Systems not noted in HPI are negative. Past Medical History Past Medical History: Coronary Artery Disease (CAD), COPD, Diabetes Mellitus, GERD/Reflux, GI Bleed, Hyperlipidemia, Hypertension, Renal Disease, Syncope, Vascular Disorder Additional Past Medical History / Comment(s): Coronary artery disease, previous bypass surgery, COPD, and stage renal disease currently on hemodialysis, morbid obesity with a previous bariatric surgery, history of diabetes mellitus currently off treatment, hyperlipidemia, hypertension, acid reflux, severe peripheral vascular disease, necrotic digits with dry gangrene is related to small vessel disease, chronic anemia, previous blood transfusions, previous myocardial infarction, currently on hemodialysis, peptic ulcer disease, history of falls, History of Any Multi-Drug Resistant Organisms: None Reported Past Surgical History: Bariatric Surgery, Coronary Bypass/CABG, Heart Catheterization Additional Past Surgical History / Comment(s): Approximately 2002 CABG-3 vessels at [facility], multiple angiograms, colonoscopies/benign polypectomies, EGDs, bilateral laser surgery for cataract removals, gastric bypass. Past Anesthesia/Blood Transfusion Reactions: No Reported Reaction Additional Past Anesthesia/Blood Transfusion Reaction / Comment(s): Pt has received blood in past without reaction. Smoking Status: Former smoker - Past Family History Father Family Medical History: Cancer Additional Family Medical History / Comment(s): Father had multiple myeloma. He at the age of 87yrs. Mother Family Medical History: Myocardial Infarction (NC) Additional Family Medical History / Comment(s): Mother of a massive NC at the age of 62 yrs. Medications and Allergies Home Medications Medication Instructions Recorded Confirmed Type Acetaminophen Tab [Tylenol Tab] 650 mg PO Q4-6H PRN 08/27/17 08/27/17 History Aspirin 81 mg PO DAILY 08/27/17 08/27/17 History Atorvastatin [Lipitor] 20 mg PO HS 08/27/17 08/27/17 History Calcium Acetate [Phoslo] 667 mg PO TID 08/27/17 08/27/17 History Clopidogrel [Plavix] 75 mg PO DAILY 08/27/17 08/27/17 History Docusate [Colace] 100 mg PO BID 08/27/17 08/27/17 History Fluticasone Nasal [place] [Flonase 1 spr EA NOSTRIL DAILY 08/27/17 08/27/17 History Nasal Apex] Folic Acid-Vit B Complex-Vit C 1 mg PO DAILY 08/27/17 08/27/17 History [Nephrocaps] HYDROcodone/APAP 5-325MG [[place] 1 tab PO Q6HR PRN 08/27/17 08/27/17 History 5-325] Levothyroxine Sodium [Levoxyl] 400 mcg PO [place] 08/27/17 08/27/17 History Levothyroxine Sodium [Synthroid] 200 mcg PO MOTUWETHFRSA 08/27/17 08/27/17 History Pantoprazole [Protonix] 40 mg PO BID 08/27/17 08/27/17 History Polyethylene Glycol 3350 [Miralax] 17 gm PO DAILY PRN 08/27/17 08/27/17 History Potassium Chloride [K-Tab ER] 20 meq PO DAILY 08/27/17 08/27/17 History Promethazine HCl 12.5 mg PO Q6H PRN 08/27/17 08/27/17 History Sertraline [Zoloft] 100 mg PO DAILY 08/27/17 08/27/17 History buPROPion HCL [Wellbutrin SR] 150 mg PO BID 08/27/17 08/27/17 History Allergies Allergy/AdvReac Type Severity Reaction Status Date / Time Penicillins Allergy Swelling Verified 08/27/17 07:48 Physical Examination - Vital Signs Vital Signs: Vital Signs Temp Pulse Resp BP Pulse Ox 09/05/17 15:00 82 12 92 L 09/05/17 14:00 82 15 98 09/05/17 13:00 98.4 F 86 17 91/52 100 09/05/17 12:00 98.4 F 83 12 100 09/05/17 11:56 84 09/05/17 11:47 87 09/05/17 11:00 84 16 97 09/05/17 10:00 84 12 100 09/05/17 09:00 87 14 100 09/05/17 08:56 87 09/05/17 08:44 86 100 09/05/17 08:00 99.2 F 85 12 100 09/05/17 07:00 84 22 99 09/05/17 06:41 99 F 82 16 122/47 97 09/05/17 06:00 85 16 96 09/05/17 05:00 87 15 96 09/05/17 04:00 99 F 95 19 99 09/05/17 03:24 13 09/05/17 03:00 96 13 100 09/05/17 02:00 93 23 100 06/10/18 01:00 89 10 L 100 09/05/17 00:08 98.9 F 88 13 127/53 100 09/05/17 00:00 98.9 F 87 13 100 09/04/17 23:00 89 12 100 09/04/17 22:00 92 14 100 09/04/17 21:00 95 13 100 09/04/17 20:11 93 09/04/17 20:00 99.3 F 92 15 100 09/04/17 19:49 89 100 09/04/17 19:00 93 15 100 09/04/17 18:00 98.3 F 97 16 100/45 100 09/04/17 17:00 99 12 100 09/04/17 16:00 98.0 F 104 H 15 100 09/04/17 15:50 100 09/04/17 15:41 94 Intake and Output 09/05/17 09/05/17 09/05/17 06:59 14:59 22:59 Intake Total 235.758 377.422 30 Output Total 45 54 0 Balance 190.758 323.422 30 Intake: IV 190 350 30 ACETAMINOPHEN IV (For NPO 100 100 ) 1,000 mg In Empty Bag 1 bag @ 400 mls/hr IVPB Q6HR PRN Rx#:[id number] Potassium Chloride 20 meq 100 In Water For Injection 1 100ml.bag @ 50 mls/hr IVPB ONCE ONE Rx#: [id number] Sodium Chloride 0.9% 1, 150 30 000 ml @ 30 mls/hr IV . Q24H [facility] Rx#:[id number] sodium chloride 0.9% 1, 90 000 ml KVO Intake, IV Titration 45.758 27.422 Amount Norepinephrin 16 mg-0.9% 45.758 27.422 Ns Pmx 16 mg In 250 ml @ Titrate IV .Q0M [facility] Rx#: [id number] Output: Urine 45 54 0 Other: Voiding Method Indwelling Catheter Indwelling Catheter Weight 60.4 kg 60.4 kg ABP, PAP, CO, CI - Last 8 Hours Arterial Blood Pressure 102/44 Arterial Blood Pressure 127/52 Arterial Blood Pressure 107/41 Arterial Blood Pressure 98/36 Arterial Blood Pressure 98/39 Arterial Blood Pressure 106/42 Arterial Blood Pressure 114/47 Arterial Blood Pressure 128/54 General appearance: confused no apparent distress. Head: Atraumatic, normocephalic, normal inspection Eyes: = 4 mm, left = 3 mm both bilaterally are sluggush Ear, nose and throat: Normal exam, mucous membranes moist Neck: Normal inspection, absent tenderness, lymphadenopathy. Respiratory: No increased work of breathing Cardiovascular: monitored GI/abdominal: no guarding, no rebound, no rigidity. Extremities: slight movement of upper Extremities grasps only, does not move upper extermities from the bed. Lower extremities are unable to be moved by patient wiht exception of wiggles toes on command. Neurological: Unable to be assessed: cranial nerves II through XII intact Bilateral upper and lower generalized weakness no seizure activity noted on physical exam patient does not visually track on nystagmus horizontally Does not with draw to pain in any extremity Negative Kernig's Negative Babinksi Negative nuchal rigidity. Psychological: Mood and affect appropriate for setting. Results CT Brain #1- 09/04/17: no acute process. CT Brain #2 - pending EEG ordered - Laboratory Findings CBC and BMP: 09/05/17 05:10 09/05/17 05:10 Abnormal Lab Findings: Abnormal Labs 08/27/17 08/27/17 08/27/17 04:44 04:44 04:44 WBC 14.2 H RBC 3.14 L Hgb 8.9 L Hct 30.2 L MCHC 29.5 L RDW 15.8 H Plt Count 540 H Neutrophils # 12.0 H Lymphocytes # PT INR APTT D-Dimer ABG pH ABG pCO2 ABG pO2 ABG HCO3 ABG Total CO2 ABG O2 Saturation ABG Lactic Acid Sodium Potassium 6.5 H* Chloride 112 H Carbon Dioxide 5 L* BUN 105 H* Creatinine 9.44 H* Glucose 194 H POC Glucose (mg/dL) Calcium 6.7 L Ionized Calcium Karlo Phosphorus Magnesium Total Bilirubin AST Total Creatine Kinase 181 H CK-MB (CK-2) 6.7 H* Troponin I 1.240 H* Total Protein 4.8 L Albumin 2.3 L TSH Free T4 Urine Appearance Urine Protein Urine Glucose (UA) Urine Blood Ur Leukocyte Esterase Urine WBC Ur Squamous Epith Cells Amorphous Sediment Hyaline Casts Urine Mucus 08/27/17 08/27/17 08/27/17 04:44 05:36 07:27 WBC RBC Hgb Hct MCHC RDW Plt Count Neutrophils # Lymphocytes # PT 12.6 H INR 1.3 H APTT D-Dimer 5.03 H ABG pH 7.07 L* ABG pCO2 32 L ABG pO2 301 H ABG HCO3 9 L* ABG Total CO2 10 L ABG O2 Saturation 98.6 H ABG Lactic Acid Sodium Potassium 7.1 H* Chloride Carbon Dioxide BUN Creatinine Glucose POC Glucose (mg/dL) Calcium Ionized Calcium Karlo Phosphorus Magnesium Total Bilirubin AST Total Creatine Kinase CK-MB (CK-2) Troponin I Total Protein Albumin TSH Free T4 Urine Appearance Urine Protein Urine Glucose (UA) Urine Blood Ur Leukocyte Esterase Urine WBC Ur Squamous Epith Cells Amorphous Sediment Hyaline Casts Urine Mucus 08/27/17 08/27/17 08/27/17 09:07 10:35 10:35 WBC 17.0 H RBC 2.89 L Hgb 8.3 L Hct 26.8 L MCHC 30.8 L RDW 15.9 H Plt Count 464 H Neutrophils # 15.6 H Lymphocytes # 0.7 L PT INR APTT D-Dimer ABG pH ABG pCO2 ABG pO2 ABG HCO3 ABG Total CO2 ABG O2 Saturation ABG Lactic Acid Sodium 147 H Potassium Chloride 112 H Carbon Dioxide 12 L BUN 104 H* Creatinine 8.87 H* Glucose 211 H POC Glucose (mg/dL) 213 H Calcium 6.9 L Ionized Calcium [place] Phosphorus Magnesium Total Bilirubin AST Total Creatine Kinase CK-MB (CK-2) Troponin I Total Protein Albumin TSH Free T4 Urine Appearance Urine Protein Urine Glucose (UA) Urine Blood Ur Leukocyte Esterase Urine WBC Ur Squamous Epith Cells Amorphous Sediment Hyaline Casts Urine Mucus 08/27/17 08/27/17 08/27/17 10:35 10:35 10:35 WBC RBC Hgb Hct MCHC RDW Plt Count Neutrophils # Lymphocytes # PT INR APTT D-Dimer ABG pH ABG pCO2 ABG pO2 ABG HCO3 ABG Total CO2 ABG O2 Saturation ABG Lactic Acid 5.7 H* Sodium Potassium Chloride Carbon Dioxide BUN Creatinine Glucose POC Glucose (mg/dL) Calcium Ionized Calcium Karlo Phosphorus Magnesium Total Bilirubin AST Total Creatine Kinase 233 H CK-MB (CK-2) 16.6 H* Troponin I 2.340 H* Total Protein Albumin TSH >100.000 H Free T4 0.74 L Urine Appearance Urine Protein Urine Glucose (UA) Urine Blood Ur Leukocyte Esterase Urine WBC Ur Squamous Epith Cells Amorphous Sediment Hyaline Casts Urine Mucus 08/27/17 08/27/17 08/27/17 10:44 15:00 16:01 WBC RBC Hgb Hct MCHC RDW Plt Count Neutrophils # Lymphocytes # PT INR APTT 89.7 H D-Dimer ABG pH 7.22 L ABG pCO2 27 L ABG pO2 ABG HCO3 11 L ABG Total CO2 12 L ABG O2 Saturation ABG Lactic Acid Sodium Potassium Chloride Carbon Dioxide BUN Creatinine Glucose POC Glucose (mg/dL) Calcium Ionized Calcium Karlo Phosphorus Magnesium Total Bilirubin AST Total Creatine Kinase 334 H CK-MB (CK-2) 33.3 H* Troponin I 7.190 H* Total Protein Albumin TSH Free T4 Urine Appearance Urine Protein Urine Glucose (UA) Urine Blood Ur Leukocyte Esterase Urine WBC Ur Squamous Epith Cells Amorphous Sediment Hyaline Casts Urine Mucus 08/27/17 08/27/17 08/27/17 16:01 17:33 19:30 WBC RBC Hgb Hct MCHC RDW Plt Count Neutrophils # Lymphocytes # PT INR APTT 56.9 H D-Dimer ABG pH ABG pCO2 ABG pO2 ABG HCO3 ABG Total CO2 ABG O2 Saturation ABG Lactic Acid 4.2 H* Sodium Potassium Chloride Carbon Dioxide 14 L BUN 97 H* Creatinine 7.90 H* Glucose 372 H POC Glucose (mg/dL) Calcium 6.6 L Ionized Calcium Kar[place] Phosphorus Magnesium Total Bilirubin AST Total Creatine Kinase CK-MB (CK-2) Troponin I Total Protein Albumin TSH Free T4 Urine Appearance Urine Protein Urine Glucose (UA) Urine Blood Ur Leukocyte Esterase Urine WBC Ur Squamous Epith Cells Amorphous Sediment Hyaline Casts Urine Mucus 08/27/17 08/27/17 08/27/17 20:00 20:37 23:13 WBC RBC Hgb Hct MCHC RDW Plt Count Neutrophils # Lymphocytes # PT INR APTT D-Dimer ABG pH ABG pCO2 ABG pO2 ABG HCO3 ABG Total CO2 ABG O2 Saturation ABG Lactic Acid Sodium Potassium Chloride Carbon Dioxide BUN Creatinine Glucose POC Glucose (mg/dL) 408 H 401 H Calcium Ionized Calcium Kar[place] Phosphorus Magnesium Total Bilirubin AST Total Creatine Kinase CK-MB (CK-2) Troponin I Total Protein Albumin TSH Free T4 Urine Appearance Cloudy H Urine Protein 1+ H Urine Glucose (UA) 3+ H Urine Blood Small H Ur Leukocyte Esterase Small H Urine WBC 12 H Ur Squamous Epith Cells 11 H Amorphous Sediment Few H Hyaline Casts 3 H Urine Mucus Rare H 08/28/17 08/28/17 08/28/17 00:56 02:00 02:53 WBC RBC Hgb Hct MCHC RDW Plt Count Neutrophils # Lymphocytes # PT INR APTT D-Dimer ABG pH ABG pCO2 ABG pO2 ABG HCO3 ABG Total CO2 ABG O2 Saturation ABG Lactic Acid Sodium Potassium Chloride Carbon Dioxide BUN Creatinine Glucose POC Glucose (mg/dL) 375 H 364 H 322 H Calcium Ionized Calcium Karlo Phosphorus Magnesium Total Bilirubin AST Total Creatine Kinase CK-MB (CK-2) Troponin I Total Protein Albumin TSH Free T4 Urine Appearance Urine Protein Urine Glucose (UA) Urine Blood Ur Leukocyte Esterase Urine WBC Ur Squamous Epith Cells Amorphous Sediment Hyaline Casts Urine Mucus 08/28/17 08/28/17 08/28/17 03:55 04:00 04:00 WBC 11.9 H RBC 2.47 L Hgb 7.2 L Hct 22.4 L MCHC RDW 16.2 H Plt Count Neutrophils # 10.5 H Lymphocytes # 0.9 L PT INR APTT D-Dimer ABG pH ABG pCO2 ABG pO2 ABG HCO3 ABG Total CO2 ABG O2 Saturation ABG Lactic Acid Sodium Potassium Chloride Carbon Dioxide 17 L BUN 91 H* Creatinine 6.80 H* Glucose 254 H POC Glucose (mg/dL) 288 H Calcium 6.4 L* Ionized Calcium Karlo Phosphorus 8.1 H* Magnesium Total Bilirubin AST Total Creatine Kinase CK-MB (CK-2) Troponin I Total Protein Albumin TSH Free T4 Urine Appearance Urine Protein Urine Glucose (UA) Urine Blood Ur Leukocyte Esterase Urine WBC Ur Squamous Epith Cells Amorphous Sediment Hyaline Casts Urine Mucus 08/28/17 08/28/17 08/28/17 04:00 05:09 05:28 WBC RBC Hgb Hct MCHC RDW Plt Count Neutrophils # Lymphocytes # PT 13.7 H INR 1.5 H APTT 43.6 H D-Dimer ABG pH 7.46 H ABG pCO2 27 L ABG pO2 130 H ABG HCO3 19 L ABG Total CO2 ABG O2 Saturation 98.0 H ABG Lactic Acid Sodium Potassium Chloride Carbon Dioxide BUN Creatinine Glucose POC Glucose (mg/dL) 213 H Calcium Ionized Calcium [place] Phosphorus Magnesium Total Bilirubin AST Total Creatine Kinase CK-MB (CK-2) Troponin I Total Protein Albumin TSH Free T4 Urine Appearance Urine Protein Urine Glucose (UA) Urine Blood Ur Leukocyte Esterase Urine WBC Ur Squamous Epith Cells Amorphous Sediment Hyaline Casts Urine Mucus 08/28/17 08/28/17 08/28/17 06:00 06:53 09:18 WBC RBC Hgb Hct MCHC RDW Plt Count Neutrophils # Lymphocytes # PT INR APTT D-Dimer ABG pH ABG pCO2 ABG pO2 ABG HCO3 ABG Total CO2 ABG O2 Saturation ABG Lactic Acid Sodium Potassium Chloride Carbon Dioxide BUN Creatinine Glucose POC Glucose (mg/dL) 171 H 168 H 152 H Calcium Ionized Calcium [place] Phosphorus Magnesium Total Bilirubin AST Total Creatine Kinase CK-MB (CK-2) Troponin I Total Protein Albumin TSH Free T4 Urine Appearance Urine Protein Urine Glucose (UA) Urine Blood Ur Leukocyte Esterase Urine WBC Ur Squamous Epith Cells Amorphous Sediment Hyaline Casts Urine Mucus 08/28/17 08/28/17 08/28/17 10:22 11:25 11:29 WBC RBC Hgb Hct MCHC RDW Plt Count Neutrophils # Lymphocytes # PT INR APTT 92.1 H D-Dimer ABG pH ABG pCO2 ABG pO2 ABG HCO3 ABG Total CO2 ABG O2 Saturation ABG Lactic Acid Sodium Potassium Chloride Carbon Dioxide BUN Creatinine Glucose POC Glucose (mg/dL) 143 H 148 H Calcium Ionized Calcium [place] Phosphorus Magnesium Total Bilirubin AST Total Creatine Kinase CK-MB (CK-2) Troponin I Total Protein Albumin TSH Free T4 Urine Appearance Urine Protein Urine Glucose (UA) Urine Blood Ur Leukocyte Esterase Urine WBC Ur Squamous Epith Cells Amorphous Sediment Hyaline Casts Urine Mucus 08/28/17 08/28/17 08/28/17 12:17 13:24 14:29 WBC RBC Hgb Hct MCHC RDW Plt Count Neutrophils # Lymphocytes # PT INR APTT D-Dimer ABG pH ABG pCO2 ABG pO2 ABG HCO3 ABG Total CO2 ABG O2 Saturation ABG Lactic Acid Sodium Potassium Chloride Carbon Dioxide BUN Creatinine Glucose POC Glucose (mg/dL) 151 H 186 H 208 H Calcium Ionized Calcium [place] Phosphorus Magnesium Total Bilirubin AST Total Creatine Kinase CK-MB (CK-2) Troponin I Total Protein Albumin TSH Free T4 Urine Appearance Urine Protein Urine Glucose (UA) Urine Blood Ur Leukocyte Esterase Urine WBC Ur Squamous Epith Cells Amorphous Sediment Hyaline Casts Urine Mucus 08/28/17 08/28/17 08/28/17 15:53 17:16 17:57 WBC RBC Hgb Hct MCHC RDW Plt Count Neutrophils # Lymphocytes # PT INR APTT D-Dimer ABG pH ABG pCO2 ABG pO2 ABG HCO3 ABG Total CO2 ABG O2 Saturation ABG Lactic Acid Sodium Potassium Chloride Carbon Dioxide BUN Creatinine Glucose POC Glucose (mg/dL) 191 H 157 H 144 H Calcium Ionized Calcium Kar[place] Phosphorus Magnesium Total Bilirubin AST Total Creatine Kinase CK-MB (CK-2) Troponin I Total Protein Albumin TSH Free T4 Urine Appearance Urine Protein Urine Glucose (UA) Urine Blood Ur Leukocyte Esterase Urine WBC Ur Squamous Epith Cells Amorphous Sediment Hyaline Casts Urine Mucus 08/28/17 08/28/17 08/28/17 18:56 20:31 21:58 WBC RBC Hgb Hct MCHC RDW Plt Count Neutrophils # Lymphocytes # PT INR APTT D-Dimer ABG pH ABG pCO2 ABG pO2 ABG HCO3 ABG Total CO2 ABG O2 Saturation ABG Lactic Acid Sodium Potassium Chloride Carbon Dioxide BUN Creatinine Glucose POC Glucose (mg/dL) 111 H 187 H 172 H Calcium Ionized Calcium Karlo Phosphorus Magnesium Total Bilirubin AST Total Creatine Kinase CK-MB (CK-2) Troponin I Total Protein Albumin TSH Free T4 Urine Appearance Urine Protein Urine Glucose (UA) Urine Blood Ur Leukocyte Esterase Urine WBC Ur Squamous Epith Cells Amorphous Sediment Hyaline Casts Urine Mucus 08/28/17 08/28/17 08/29/17 22:57 23:51 00:57 WBC RBC Hgb Hct MCHC RDW Plt Count Neutrophils # Lymphocytes # PT INR APTT D-Dimer ABG pH ABG pCO2 ABG pO2 ABG HCO3 ABG Total CO2 ABG O2 Saturation ABG Lactic Acid Sodium Potassium Chloride Carbon Dioxide BUN Creatinine Glucose POC Glucose (mg/dL) 148 H 135 H 141 H Calcium Ionized Calcium Karlo Phosphorus Magnesium Total Bilirubin AST Total Creatine Kinase CK-MB (CK-2) Troponin I Total Protein Albumin TSH Free T4 Urine Appearance Urine Protein Urine Glucose (UA) Urine Blood Ur Leukocyte Esterase Urine WBC Ur Squamous Epith Cells Amorphous Sediment Hyaline Casts Urine Mucus 08/29/17 08/29/17 08/29/17 01:00 01:34 02:26 WBC RBC Hgb Hct MCHC RDW Plt Count Neutrophils # Lymphocytes # PT INR APTT 46.4 H D-Dimer ABG pH ABG pCO2 ABG pO2 ABG HCO3 ABG Total CO2 ABG O2 Saturation ABG Lactic Acid Sodium Potassium Chloride Carbon Dioxide BUN Creatinine Glucose POC Glucose (mg/dL) 165 H 174 H Calcium Ionized Calcium Kar[place] Phosphorus Magnesium Total Bilirubin AST Total Creatine Kinase CK-MB (CK-2) Troponin I Total Protein Albumin TSH Free T4 Urine Appearance Urine Protein Urine Glucose (UA) Urine Blood Ur Leukocyte Esterase Urine WBC Ur Squamous Epith Cells Amorphous Sediment Hyaline Casts Urine Mucus 08/29/17 08/29/17 08/29/17 03:07 03:28 04:00 WBC 17.4 H RBC 3.07 L Hgb 8.6 L Hct 27.2 L MCHC RDW 15.9 H Plt Count Neutrophils # 14.6 H Lymphocytes # PT INR APTT D-Dimer ABG pH ABG pCO2 ABG pO2 ABG HCO3 ABG Total CO2 ABG O2 Saturation ABG Lactic Acid Sodium Potassium Chloride Carbon Dioxide BUN Creatinine Glucose POC Glucose (mg/dL) 107 H 156 H Calcium Ionized Calcium Karlo Phosphorus Magnesium Total Bilirubin AST Total Creatine Kinase CK-MB (CK-2) Troponin I Total Protein Albumin TSH Free T4 Urine Appearance Urine Protein Urine Glucose (UA) Urine Blood Ur Leukocyte Esterase Urine WBC Ur Squamous Epith Cells Amorphous Sediment Hyaline Casts Urine Mucus 08/29/17 08/29/17 08/29/17 04:00 04:00 04:31 WBC RBC Hgb Hct MCHC RDW Plt Count Neutrophils # Lymphocytes # PT INR APTT 47.3 H D-Dimer ABG pH ABG pCO2 ABG pO2 ABG HCO3 ABG Total CO2 ABG O2 Saturation ABG Lactic Acid Sodium 134 L Potassium Chloride Carbon Dioxide 21 L BUN 76 H Creatinine 5.20 H* Glucose 131 H POC Glucose (mg/dL) 137 H Calcium 5.6 L* Ionized Calcium Karlo Phosphorus 7.0 H Magnesium 1.5 L Total Bilirubin AST Total Creatine Kinase CK-MB (CK-2) Troponin I Total Protein Albumin TSH Free T4 Urine Appearance Urine Protein Urine Glucose (UA) Urine Blood Ur Leukocyte Esterase Urine WBC Ur Squamous Epith Cells Amorphous Sediment Hyaline Casts Urine Mucus 08/29/17 08/29/17 08/29/17 05:15 06:03 07:18 WBC RBC Hgb Hct MCHC RDW Plt Count Neutrophils # Lymphocytes # PT INR APTT D-Dimer ABG pH 7.49 H ABG pCO2 32 L ABG pO2 ABG HCO3 ABG Total CO2 25 H ABG O2 Saturation 97.1 H ABG Lactic Acid Sodium Potassium Chloride Carbon Dioxide BUN Creatinine Glucose POC Glucose (mg/dL) 121 H 134 H Calcium Ionized Calcium Karlo Phosphorus Magnesium Total Bilirubin AST Total Creatine Kinase CK-MB (CK-2) Troponin I Total Protein Albumin TSH Free T4 Urine Appearance Urine Protein Urine Glucose (UA) Urine Blood Ur Leukocyte Esterase Urine WBC Ur Squamous Epith Cells Amorphous Sediment Hyaline Casts Urine Mucus 08/29/17 08/29/17 08/29/17 08:00 09:27 10:04 WBC RBC Hgb Hct MCHC RDW Plt Count Neutrophils # Lymphocytes # PT INR APTT D-Dimer ABG pH ABG pCO2 ABG pO2 ABG HCO3 ABG Total CO2 ABG O2 Saturation ABG Lactic Acid Sodium Potassium Chloride Carbon Dioxide BUN Creatinine Glucose POC Glucose (mg/dL) 134 H 172 H 162 H Calcium Ionized Calcium Karlo Phosphorus Magnesium Total Bilirubin AST Total Creatine Kinase CK-MB (CK-2) Troponin I Total Protein Albumin TSH Free T4 Urine Appearance Urine Protein Urine Glucose (UA) Urine Blood Ur Leukocyte Esterase Urine WBC Ur Squamous Epith Cells Amorphous Sediment Hyaline Casts Urine Mucus 08/29/17 08/29/17 08/29/17 10:49 11:59 12:32 WBC RBC Hgb Hct MCHC RDW Plt Count Neutrophils # Lymphocytes # PT INR APTT D-Dimer ABG pH 7.54 H ABG pCO2 27 L ABG pO2 127 H ABG HCO3 ABG Total CO2 ABG O2 Saturation 98.2 H ABG Lactic Acid Sodium Potassium Chloride Carbon Dioxide BUN Creatinine Glucose POC Glucose (mg/dL) 172 H 114 H Calcium Ionized Calcium Karlo Phosphorus Magnesium Total Bilirubin AST Total Creatine Kinase CK-MB (CK-2) Troponin I Total Protein Albumin TSH Free T4 Urine Appearance Urine Protein Urine Glucose (UA) Urine Blood Ur Leukocyte Esterase Urine WBC Ur Squamous Epith Cells Amorphous Sediment Hyaline Casts Urine Mucus 08/29/17 08/29/17 08/29/17 14:22 15:52 19:01 WBC RBC Hgb Hct MCHC RDW Plt Count Neutrophils # Lymphocytes # PT INR APTT D-Dimer ABG pH ABG pCO2 ABG pO2 ABG HCO3 ABG Total CO2 ABG O2 Saturation ABG Lactic Acid Sodium Potassium Chloride Carbon Dioxide BUN Creatinine Glucose POC Glucose (mg/dL) 156 H 123 H 131 H Calcium Ionized Calcium Karlo Phosphorus Magnesium Total Bilirubin AST Total Creatine Kinase CK-MB (CK-2) Troponin I Total Protein Albumin TSH Free T4 Urine Appearance Urine Protein Urine Glucose (UA) Urine Blood Ur Leukocyte Esterase Urine WBC Ur Squamous Epith Cells Amorphous Sediment Hyaline Casts Urine Mucus 08/29/17 08/30/17 08/30/17 19:56 02:11 03:44 WBC RBC Hgb Hct MCHC RDW Plt Count Neutrophils # Lymphocytes # PT INR APTT D-Dimer ABG pH ABG pCO2 34 L ABG pO2 ABG HCO3 20 L ABG Total CO2 ABG O2 Saturation ABG Lactic Acid Sodium Potassium Chloride Carbon Dioxide BUN Creatinine Glucose POC Glucose (mg/dL) 127 H 117 H Calcium Ionized Calcium [place] Phosphorus Magnesium Total Bilirubin AST Total Creatine Kinase CK-MB (CK-2) Troponin I Total Protein Albumin TSH Free T4 Urine Appearance Urine Protein Urine Glucose (UA) Urine Blood Ur Leukocyte Esterase Urine WBC Ur Squamous Epith Cells Amorphous Sediment Hyaline Casts Urine Mucus 08/30/17 08/30/17 08/30/17 04:00 04:00 04:00 WBC 21.1 H RBC 3.18 L Hgb 9.1 L Hct 28.9 L MCHC RDW Plt Count Neutrophils # 19.0 H Lymphocytes # PT INR APTT D-Dimer ABG pH ABG pCO2 ABG pO2 ABG HCO3 ABG Total CO2 ABG O2 Saturation ABG Lactic Acid Sodium 133 L Potassium Chloride 97 L Carbon Dioxide 18 L BUN 67 H Creatinine 4.60 H Glucose 193 H POC Glucose (mg/dL) Calcium 5.8 L* Ionized Calcium Kar[place] Phosphorus 7.9 H Magnesium Total Bilirubin AST Total Creatine Kinase 292 H CK-MB (CK-2) 9.5 H* Troponin I 9.540 H* Total Protein Albumin TSH Free T4 Urine Appearance Urine Protein Urine Glucose (UA) Urine Blood Ur Leukocyte Esterase Urine WBC Ur Squamous Epith Cells Amorphous Sediment Hyaline Casts Urine Mucus 08/30/17 08/30/17 08/30/17 05:25 07:03 07:06 WBC RBC Hgb Hct MCHC RDW Plt Count Neutrophils # Lymphocytes # PT INR APTT 63.8 H D-Dimer ABG pH ABG pCO2 ABG pO2 ABG HCO3 ABG Total CO2 ABG O2 Saturation ABG Lactic Acid Sodium Potassium Chloride Carbon Dioxide BUN Creatinine Glucose POC Glucose (mg/dL) 69 L 200 H Calcium Ionized Calcium [place] Phosphorus Magnesium Total Bilirubin AST Total Creatine Kinase CK-MB (CK-2) Troponin I Total Protein Albumin TSH Free T4 Urine Appearance Urine Protein Urine Glucose (UA) Urine Blood Ur Leukocyte Esterase Urine WBC Ur Squamous Epith Cells Amorphous Sediment Hyaline Casts Urine Mucus 08/30/17 08/30/17 08/30/17 11:57 18:10 23:33 WBC RBC Hgb Hct MCHC RDW Plt Count Neutrophils # Lymphocytes # PT INR APTT D-Dimer ABG pH ABG pCO2 ABG pO2 ABG HCO3 ABG Total CO2 ABG O2 Saturation ABG Lactic Acid Sodium Potassium Chloride Carbon Dioxide BUN Creatinine Glucose POC Glucose (mg/dL) 179 H 136 H 145 H Calcium Ionized Calcium [place] Phosphorus Magnesium Total Bilirubin AST Total Creatine Kinase CK-MB (CK-2) Troponin I Total Protein Albumin TSH Free T4 Urine Appearance Urine Protein Urine Glucose (UA) Urine Blood Ur Leukocyte Esterase Urine WBC Ur Squamous Epith Cells Amorphous Sediment Hyaline Casts Urine Mucus 08/31/17 08/31/17 08/31/17 04:10 04:10 04:10 WBC 23.8 H RBC 3.26 L Hgb 9.3 L Hct 29.2 L MCHC RDW Plt Count Neutrophils # 19.6 H Lymphocytes # PT INR APTT 91.6 H D-Dimer ABG pH ABG pCO2 ABG pO2 ABG HCO3 ABG Total CO2 ABG O2 Saturation ABG Lactic Acid Sodium 130 L Potassium Chloride 96 L Carbon Dioxide BUN 65 H Creatinine 4.29 H Glucose 143 H POC Glucose (mg/dL) Calcium 6.4 L* Ionized Calcium [place] Phosphorus 8.1 H* Magnesium Total Bilirubin AST Total Creatine Kinase CK-MB (CK-2) Troponin I Total Protein Albumin TSH Free T4 Urine Appearance Urine Protein Urine Glucose (UA) Urine Blood Ur Leukocyte Esterase Urine WBC Ur Squamous Epith Cells Amorphous Sediment Hyaline Casts Urine Mucus 08/31/17 08/31/17 08/31/17 05:52 07:42 11:25 WBC RBC Hgb Hct MCHC RDW Plt Count Neutrophils # Lymphocytes # PT INR APTT 63.3 H D-Dimer ABG pH 7.51 H ABG pCO2 29 L ABG pO2 205 H ABG HCO3 ABG Total CO2 ABG O2 Saturation 98.7 H ABG Lactic Acid Sodium Potassium Chloride Carbon Dioxide BUN Creatinine Glucose POC Glucose (mg/dL) 118 H Calcium Ionized Calcium [place] Phosphorus Magnesium Total Bilirubin AST Total Creatine Kinase CK-MB (CK-2) Troponin I Total Protein Albumin TSH Free T4 Urine Appearance Urine Protein Urine Glucose (UA) Urine Blood Ur Leukocyte Esterase Urine WBC Ur Squamous Epith Cells Amorphous Sediment Hyaline Casts Urine Mucus 08/31/17 08/31/17 08/31/17 11:58 17:53 23:52 WBC RBC Hgb Hct MCHC RDW Plt Count Neutrophils # Lymphocytes # PT INR APTT D-Dimer ABG pH ABG pCO2 ABG pO2 ABG HCO3 ABG Total CO2 ABG O2 Saturation ABG Lactic Acid Sodium Potassium Chloride Carbon Dioxide BUN Creatinine Glucose POC Glucose (mg/dL) 138 H 129 H 196 H Calcium Ionized Calcium [place] Phosphorus Magnesium Total Bilirubin AST Total Creatine Kinase CK-MB (CK-2) Troponin I Total Protein Albumin TSH Free T4 Urine Appearance Urine Protein Urine Glucose (UA) Urine Blood Ur Leukocyte Esterase Urine WBC Ur Squamous Epith Cells Amorphous Sediment Hyaline Casts Urine Mucus 09/01/17 09/01/17 09/01/17 04:00 04:00 05:45 WBC 22.2 H RBC 3.05 L Hgb 8.8 L Hct 27.1 L MCHC RDW Plt Count Neutrophils # 19.4 H Lymphocytes # PT INR APTT 51.6 H D-Dimer ABG pH ABG pCO2 ABG pO2 ABG HCO3 ABG Total CO2 ABG O2 Saturation ABG Lactic Acid Sodium 129 L Potassium Chloride 95 L Carbon Dioxide BUN 60 H Creatinine 3.80 H Glucose 186 H POC Glucose (mg/dL) Calcium 6.0 L* Ionized Calcium [place] Phosphorus 7.8 H Magnesium Total Bilirubin AST Total Creatine Kinase CK-MB (CK-2) Troponin I Total Protein Albumin TSH Free T4 Urine Appearance Urine Protein Urine Glucose (UA) Urine Blood Ur Leukocyte Esterase Urine WBC Ur Squamous Epith Cells Amorphous Sediment Hyaline Casts Urine Mucus 09/01/17 09/01/17 09/01/17 06:01 07:06 08:29 WBC RBC Hgb Hct MCHC RDW Plt Count Neutrophils # Lymphocytes # PT INR APTT D-Dimer ABG pH 7.47 H ABG pCO2 32 L ABG pO2 128 H ABG HCO3 ABG Total CO2 ABG O2 Saturation 97.9 H ABG Lactic Acid Sodium Potassium Chloride Carbon Dioxide BUN Creatinine Glucose POC Glucose (mg/dL) 214 H 166 H Calcium Ionized Calcium [place] Phosphorus Magnesium Total Bilirubin AST Total Creatine Kinase CK-MB (CK-2) Troponin I Total Protein Albumin TSH Free T4 Urine Appearance Urine Protein Urine Glucose (UA) Urine Blood Ur Leukocyte Esterase Urine WBC Ur Squamous Epith Cells Amorphous Sediment Hyaline Casts Urine Mucus 09/01/17 09/01/17 09/02/17 12:42 17:33 00:49 WBC RBC Hgb Hct MCHC RDW Plt Count Neutrophils # Lymphocytes # PT INR APTT D-Dimer ABG pH ABG pCO2 ABG pO2 ABG HCO3 ABG Total CO2 ABG O2 Saturation ABG Lactic Acid Sodium Potassium Chloride Carbon Dioxide BUN Creatinine Glucose POC Glucose (mg/dL) 220 H 302 H 227 H Calcium Ionized Calcium [place] Phosphorus Magnesium Total Bilirubin AST Total Creatine Kinase CK-MB (CK-2) Troponin I Total Protein Albumin TSH Free T4 Urine Appearance Urine Protein Urine Glucose (UA) Urine Blood Ur Leukocyte Esterase Urine WBC Ur Squamous Epith Cells Amorphous Sediment Hyaline Casts Urine Mucus 09/02/17 09/02/17 09/02/17 04:00 04:00 04:00 WBC 13.9 H RBC 2.74 L Hgb 8.0 L Hct 24.7 L MCHC RDW Plt Count Neutrophils # 11.8 H Lymphocytes # PT INR APTT 44.0 H D-Dimer ABG pH ABG pCO2 ABG pO2 ABG HCO3 ABG Total CO2 ABG O2 Saturation ABG Lactic Acid Sodium 130 L Potassium 2.9 L* Chloride 94 L Carbon Dioxide BUN 54 H Creatinine 3.50 H Glucose 198 H POC Glucose (mg/dL) Calcium 6.0 L* Ionized Calcium [place] Phosphorus 6.1 H Magnesium Total Bilirubin AST Total Creatine Kinase CK-MB (CK-2) Troponin I Total Protein Albumin TSH Free T4 Urine Appearance Urine Protein Urine Glucose (UA) Urine Blood Ur Leukocyte Esterase Urine WBC Ur Squamous Epith Cells Amorphous Sediment Hyaline Casts Urine Mucus 09/02/17 09/02/17 09/02/17 06:00 06:00 06:55 WBC RBC Hgb Hct MCHC RDW Plt Count Neutrophils # Lymphocytes # PT INR APTT D-Dimer ABG pH ABG pCO2 ABG pO2 ABG HCO3 ABG Total CO2 ABG O2 Saturation ABG Lactic Acid Sodium Potassium Chloride Carbon Dioxide BUN Creatinine Glucose POC Glucose (mg/dL) 243 H Calcium Ionized Calcium [place] 3.5 L* Phosphorus Magnesium Total Bilirubin AST Total Creatine Kinase CK-MB (CK-2) Troponin I Total Protein Albumin 1.5 L TSH Free T4 Urine Appearance Urine Protein Urine Glucose (UA) Urine Blood Ur Leukocyte Esterase Urine WBC Ur Squamous Epith Cells Amorphous Sediment Hyaline Casts Urine Mucus 09/02/17 09/02/17 09/02/17 07:39 12:29 17:29 WBC RBC Hgb Hct MCHC RDW Plt Count Neutrophils # Lymphocytes # PT INR APTT D-Dimer ABG pH 7.60 H* ABG pCO2 27 L ABG pO2 ABG HCO3 26 H ABG Total CO2 27 H ABG O2 Saturation 97.3 H ABG Lactic Acid Sodium Potassium Chloride Carbon Dioxide BUN Creatinine Glucose POC Glucose (mg/dL) 220 H 240 H Calcium Ionized Calcium [place] Phosphorus Magnesium Total Bilirubin AST Total Creatine Kinase CK-MB (CK-2) Troponin I Total Protein Albumin TSH Free T4 Urine Appearance Urine Protein Urine Glucose (UA) Urine Blood Ur Leukocyte Esterase Urine WBC Ur Squamous Epith Cells Amorphous Sediment Hyaline Casts Urine Mucus 09/03/17 09/03/17 09/03/17 00:05 04:00 04:00 WBC 15.5 H RBC 2.78 L Hgb 8.1 L Hct 25.3 L MCHC RDW Plt Count Neutrophils # Lymphocytes # PT INR APTT D-Dimer ABG pH ABG pCO2 ABG pO2 ABG HCO3 ABG Total CO2 ABG O2 Saturation ABG Lactic Acid Sodium 130 L Potassium Chloride 95 L Carbon Dioxide BUN 54 H Creatinine 3.20 H Glucose 244 H POC Glucose (mg/dL) 283 H Calcium 7.1 L Ionized Calcium [place] Phosphorus 5.7 H Magnesium Total Bilirubin <0.1 L AST Total Creatine Kinase CK-MB (CK-2) Troponin I Total Protein 3.8 L Albumin 1.6 L TSH Free T4 Urine Appearance Urine Protein Urine Glucose (UA) Urine Blood Ur Leukocyte Esterase Urine WBC Ur Squamous Epith Cells Amorphous Sediment Hyaline Casts Urine Mucus 09/03/17 09/03/17 09/03/17 05:52 07:22 12:34 WBC RBC Hgb Hct MCHC RDW Plt Count Neutrophils # Lymphocytes # PT INR APTT D-Dimer ABG pH 7.50 H ABG pCO2 34 L ABG pO2 151 H ABG HCO3 26 H ABG Total CO2 27 H ABG O2 Saturation 98.4 H ABG Lactic Acid Sodium Potassium Chloride Carbon Dioxide BUN Creatinine Glucose POC Glucose (mg/dL) 203 H 127 H Calcium Ionized Calcium [place] Phosphorus Magnesium Total Bilirubin AST Total Creatine Kinase CK-MB (CK-2) Troponin I Total Protein Albumin TSH Free T4 Urine Appearance Urine Protein Urine Glucose (UA) Urine Blood Ur Leukocyte Esterase Urine WBC Ur Squamous Epith Cells Amorphous Sediment Hyaline Casts Urine Mucus 09/03/17 09/03/17 09/04/17 18:57 20:49 00:11 WBC RBC Hgb Hct MCHC RDW Plt Count Neutrophils # Lymphocytes # PT INR APTT D-Dimer ABG pH ABG pCO2 ABG pO2 ABG HCO3 ABG Total CO2 ABG O2 Saturation ABG Lactic Acid Sodium Potassium Chloride Carbon Dioxide BUN Creatinine Glucose POC Glucose (mg/dL) 259 H 137 H 107 H Calcium Ionized Calcium [place] Phosphorus Magnesium Total Bilirubin AST Total Creatine Kinase CK-MB (CK-2) Troponin I Total Protein Albumin TSH Free T4 Urine Appearance Urine Protein Urine Glucose (UA) Urine Blood Ur Leukocyte Esterase Urine WBC Ur Squamous Epith Cells Amorphous Sediment Hyaline Casts Urine Mucus 09/04/17 09/04/17 09/04/17 04:50 04:50 12:21 WBC 14.8 H RBC 2.73 L Hgb 8.0 L Hct 24.9 L MCHC RDW Plt Count Neutrophils # Lymphocytes # PT INR APTT D-Dimer ABG pH ABG pCO2 ABG pO2 ABG HCO3 ABG Total CO2 ABG O2 Saturation ABG Lactic Acid Sodium 136 L Potassium Chloride Carbon Dioxide BUN 51 H Creatinine 3.29 H Glucose POC Glucose (mg/dL) 224 H Calcium 7.5 L Ionized Calcium [place] Phosphorus 4.6 H Magnesium Total Bilirubin AST 50 H Total Creatine Kinase CK-MB (CK-2) Troponin I Total Protein 4.2 L Albumin 1.8 L TSH Free T4 Urine Appearance Urine Protein Urine Glucose (UA) Urine Blood Ur Leukocyte Esterase Urine WBC Ur Squamous Epith Cells Amorphous Sediment Hyaline Casts Urine Mucus 09/04/17 09/04/17 09/05/17 18:21 23:53 05:07 WBC RBC Hgb Hct MCHC RDW Plt Count Neutrophils # Lymphocytes # PT INR APTT D-Dimer ABG pH ABG pCO2 ABG pO2 ABG HCO3 ABG Total CO2 ABG O2 Saturation ABG Lactic Acid Sodium Potassium Chloride Carbon Dioxide BUN Creatinine Glucose POC Glucose (mg/dL) 182 H 154 H 35 L Calcium Ionized Calcium [place] Phosphorus Magnesium Total Bilirubin AST Total Creatine Kinase CK-MB (CK-2) Troponin I Total Protein Albumin TSH Free T4 Urine Appearance Urine Protein Urine Glucose (UA) Urine Blood Ur Leukocyte Esterase Urine WBC Ur Squamous Epith Cells Amorphous Sediment Hyaline Casts Urine Mucus 09/05/17 09/05/17 09/05/17 05:10 05:10 05:10 WBC 18.4 H RBC 2.59 L Hgb 7.7 L Hct 24.0 L MCHC RDW Plt Count Neutrophils # Lymphocytes # PT INR APTT D-Dimer ABG pH ABG pCO2 ABG pO2 ABG HCO3 ABG Total CO2 ABG O2 Saturation ABG Lactic Acid Sodium Potassium Chloride Carbon Dioxide BUN 47 H Creatinine 3.50 H Glucose 29 L* POC Glucose (mg/dL) 34 L Calcium 7.6 L Ionized Calcium [place] Phosphorus 6.1 H Magnesium Total Bilirubin AST 73 H Total Creatine Kinase CK-MB (CK-2) Troponin I Total Protein 4.3 L Albumin 1.8 L TSH Free T4 Urine Appearance Urine Protein Urine Glucose (UA) Urine Blood Ur Leukocyte Esterase Urine WBC Ur Squamous Epith Cells Amorphous Sediment Hyaline Casts Urine Mucus 09/05/17 09/05/17 09/05/17 05:25 06:01 06:25 WBC RBC Hgb Hct MCHC RDW Plt Count Neutrophils # Lymphocytes # PT INR APTT D-Dimer ABG pH ABG pCO2 ABG pO2 ABG HCO3 ABG Total CO2 ABG O2 Saturation ABG Lactic Acid Sodium Potassium Chloride Carbon Dioxide BUN Creatinine Glucose POC Glucose (mg/dL) 107 H 56 L 119 H Calcium Ionized Calcium [place] Phosphorus Magnesium Total Bilirubin AST Total Creatine Kinase CK-MB (CK-2) Troponin I Total Protein Albumin TSH Free T4 Urine Appearance Urine Protein Urine Glucose (UA) Urine Blood Ur Leukocyte Esterase Urine WBC Ur Squamous Epith Cells Amorphous Sediment Hyaline Casts Urine Mucus 09/05/17 09/05/17 09/05/17 07:30 10:53 10:55 WBC RBC Hgb Hct MCHC RDW Plt Count Neutrophils # Lymphocytes # PT INR APTT D-Dimer ABG pH ABG pCO2 ABG pO2 ABG HCO3 ABG Total CO2 ABG O2 Saturation ABG Lactic Acid Sodium Potassium Chloride Carbon Dioxide BUN Creatinine Glucose POC Glucose (mg/dL) 105 H 59 L 55 L Calcium Ionized Calcium [place] Phosphorus Magnesium Total Bilirubin AST Total Creatine Kinase CK-MB (CK-2) Troponin I Total Protein Albumin TSH Free T4 Urine Appearance Urine Protein Urine Glucose (UA) Urine Blood Ur Leukocyte Esterase Urine WBC Ur Squamous Epith Cells Amorphous Sediment Hyaline Casts Urine Mucus 09/05/17 11:14 WBC RBC Hgb Hct MCHC RDW Plt Count Neutrophils # Lymphocytes # PT INR APTT D-Dimer ABG pH ABG pCO2 ABG pO2 ABG HCO3 ABG Total CO2 ABG O2 Saturation ABG Lactic Acid Sodium Potassium Chloride Carbon Dioxide BUN Creatinine Glucose POC Glucose (mg/dL) 123 H Calcium Ionized Calcium [place] Phosphorus Magnesium Total Bilirubin AST Total Creatine Kinase CK-MB (CK-2) Troponin I Total Protein Albumin TSH Free T4 Urine Appearance Urine Protein Urine Glucose (UA) Urine Blood Ur Leukocyte Esterase Urine WBC Ur Squamous Epith Cells Amorphous Sediment Hyaline Casts Urine Mucus Assessment and Plan (1) Metabolic encephalopathy Current Visit: Yes Status: Acute Code(s): G93.41 - METABOLIC ENCEPHALOPATHY SNOMED Code(s): 06561277 (2) Renal failure Current Visit: Yes Status: Acute Code(s): N19 - UNSPECIFIED KIDNEY FAILURE SNOMED Code(s): 71248565 Plan: 1. Toxic metabolic encephalopathy: Given the patient's WBC count, laboratory bloodwork results and multiple complex comorbidities, the patient does appear to be experiencing TME of multifactorial etiology. Patient will have updated CT Brain performed today to confirm no new acute process. EEG is ordered and pending. Continue to correct abnormal labs and treat infectious process. Continue neuro checks per protocol and notify neurology with any neurological status changes. Neurology will continue to follow and provide updates as needed or warranted.
[2017-09-05 17:26] LABS: Glucose,Whole Blood 113 mg/dL (75-99)
--- NOTE | 2017-09-05 23:16 | P.PN ---
Subjective Progress Note Date: 09/05/17 Principal diagnosis: Peritonitis and sepsis 65-year-old the being treated for acute respiratory failure secondary to sepsis source unclear possibly lower limb ulcerations or peritonitis. Patient remains intubated patient is presently on 40% FiO2 PEEP of 5 and tidal volume of 500 continues to have metabolic acidosis which improved compared to yesterday. Patient is undergoing peritoneal dialysis remains on epinephrine, propofol drip , IV heparin for possible non-ST elevation myocardial infarction, on antibiotics meropenem and vancomycin with the so for negative cultures, very minimal urine output, hypotension improved, possibility of a superimposed cardiac sharp with bilateral pleural effusions 08/29/2017 Patient is off sedation undergoing weaning trials, on 1 g of epinephrine. Patient is awake and arousable intubated on BiPAP through ventilator 08/30/17 reintubated last night with FiO2 at 70%/+8 of PEEP. Chest x-ray reporting increasing lung opacity's, worsening edema and or infiltrates. Maintained on DIprova, heparin and Levophed drips. Troponin up to 9.5. Minimal urine output. Peritoneal dialysis cultures reporting enterococcus. Potential hemodialysis being discussed. Telemetry sinus rhythm. 08/31/17 remains vent dependent. CXR and ABGs improving. FiO2 decreased to 50% and PEEP decreased down to 5%. No weaning trials, yet. Tube feedings being initiated. Bicarb 22. PD changed to every 4 hours with solution adjusted as per nephrology. Levophed down to 7 mics. Maintained on Merrem and vancomycin, peritoneal cultures positive for enterococcus D, final results pending. 09/01/17 continues on antibiotics for enterococcus faecalis peritonitis. remains vent dependent, FiO2 decreased to 40%/+5 of PEEP. ABGs improved. Maintain on heparin, diprovan and Levophed drips. Prior chest ultrasound reported bilateral pleural effusions greater on the left with largest pocket 8.3 cm. Chest x-ray reporting bilateral consolidation, pleural effusions, small amount of subcutaneous emphysema along right lateral chest wall. Chest ultrasound repeated with both left and right-sided marked for possible thoracentesis. Paroximal A. fib, currently sinus rhythm. Pulmonary discussing possible weaning parameters. Tube feeds at goal with minimal to no residuals. 09/02/2017 Patient remained on mechanical ventilator. Changed to per support and is starting to wean off from in today. Patient is able to open her eyes and could not follow any commands. Chest x-ray showed improvement in left pleural effusion. Pulmonary is now planning for thoracentesis at this time. Patient is off pressors support. Patient is being continued on vancomycin for enterococcus fecaliths in the peritoneal fluid. Meropenem has been discontinued. Pulmonary and ID is following. 09/03/2017 Patient was extubated today. Otherwise still confused but able to move her extremities. Could not able to communicate at this time. Patient is generally weak and unable to tolerate oral diet and currently on nothing by mouth. Chest x-ray showed improvement. Patient is being continued on antibiotics otherwise. Peritoneal dialysis every 6 hourly. 09/04/2017 Patient is extubated and is oxygenating well on nausea cannula. Mental status otherwise system confused and could not able to speak at this time. Patient is able to open her eyes and follow simple commands. CT head was done showed no acute intracranial process. No change from prior study Chest x-ray showed right basilar opacity and could represent atelectasis or pneumonia. Neurology was consulted for further evaluation. WBC 14, BUN 51 creatinine 3.29 Discussed with the family at bedside. 09/05/2017 Patient is currently saturating well on nasal cannula. Patient was started back on low-dose Levophed today. Otherwise mental status slightly improved and is able to talk single words occasionally. Patient seems more oriented today. Neurology has seen the patient. Repeat CT head was ordered. Swallowing evaluation tomorrow. No fever no chills. Patient is being continued on antibiotics and parenteral dialysis as scheduled. Review of systems could not be obtained from the patient. Current medications reviewed. Active Medications Generic Name Dose Route Start Last Admin Trade Name Freq PRN Reason Stop Dose Admin Albuterol/Ipratropium 3 ml 08/27/17 12:00 09/05/17 20:23 Duoneb 0.5 Mg-3 Mg/3 Ml Soln INHALATION 3 ml RT-QID ALEXANDRA Administration Albuterol/Ipratropium 3 ml 08/27/17 10:09 Duoneb 0.5 Mg-3 Mg/3 Ml Soln INHALATION RT-Q2H PRN Shortness Of Breath Or Wheezing Aspirin 300 mg 09/04/17 11:00 09/05/17 08:10 Aspirin RECTAL 300 mg DAILY ALEXANDRA Administration Calcium Carbonate/Glycine 500 mg 08/30/17 09:39 Tums PO DAILY PRN Heartburn Heparin Sodium (Porcine) 5,000 unit 09/02/17 21:00 09/05/17 21:46 Heparin SQ 5,000 unit Q12HR ALEXANDRA Administration Norepinephrine Bitartrate 16 mg in 250 mls @ 0 mls/hr 08/30/17 03:15 15:59 Levophed-0.9% Nacl 16 Mg/250ml Pmx IV 1 mcg/min .Q0M ALEXANDRA 0.938 mls/hr Protocol Titration Titrate Propofol 1,000 mg/ IV Solution 100 mls @ 0 mls/hr 08/30/17 04:45 09/01/17 10: 15 IV Infused .Q0M ALEXANDRA Titration Protocol Titrate Sodium Chloride 1,000 mls @ 30 mls/hr 09/05/17 09:45 09/05/17 11:01 Saline 0.9% IV 30 mls/hr .Q24H ALEXANDRA Administration Peritoneal Dialysis Solution 30 g in 2,000 mls @ 0 mls/hr 09/05/17 12:15 01/13 17:47 Delflex With 1.5% Dextrose (2,000 Ml) INTRAPERIT 2,000 mls/hr Q6HR ALEXANDRA Administration Protocol As Directed Acetaminophen 1,000 mg/ IV 100 mls @ 400 mls/hr 09/05/17 12:46 09/05/17 13:44 Solution IVPB 09/06/17 06:14 400 mls/hr Q6HR PRN Administration Fever and/ or Pain Insulin Aspart 0 unit 08/30/17 12:00 09/05/17 17:24 Novolog SQ Not Given Q6H ALEXANDRA Protocol Levothyroxine Sodium 100 mcg 08/28/17 09:00 09/05/17 08:09 Synthroid Ivp IV 100 mcg DAILY ALEXANDRA Administration Metoprolol Tartrate 12.5 mg 08/28/17 10:00 09/05/17 08:00 Lopressor PO Not Given DAILY ALEXANDRA Midodrine 5 mg 08/29/17 17:30 09/05/17 15:59 Proamatine PO Not Given AC-BID ALEXANDRA Miscellaneous Information 1 each 08/27/17 09:49 Pharmacy To Dose Iv Vancomycin MISCELLANE DIRECTED PRN Per Protocol Miscellaneous Information 1 each 08/28/17 06:03 Potassium Per Protocol MISCELLANE DAILY PRN Per Protocol Protocol Morphine Sulfate 2 mg 08/27/17 07:52 09/05/17 03:20 Morphine Sulfate (Inj) IVP 2 mg Q5M PRN Administration Chest Pain Pantoprazole Sodium 40 mg 08/27/17 10:15 09/05/17 08:09 Protonix IVP 40 mg DAILY ALEXANDRA Administration Sevelamer Carbonate 800 mg 08/30/17 12:30 09/05/17 15:59 Renvela PO Not Given TID-W/MEALS [facility] Objective - Vital Signs Vital signs: Vital Signs Temp 98.4 F 09/05/17 13:00 Pulse 82 09/05/17 15:00 Resp 12 09/05/17 15:00 BP 91/52 09/05/17 13:00 Pulse Ox 92 L 09/05/17 15:00 Intake & Output 09/04/17 09/05/17 09/05/17 18:59 06:59 18:59 Intake Total 360.5 275.758 407.422 Output Total 92 75 54 Balance 268.5 200.758 353.422 Weight 60.4 kg 60.4 kg Intake: IV 360 230 380 ACETAMINOPHEN IV (For NPO 100 100 ) 1,000 mg In Empty Bag 1 bag @ 400 mls/hr IVPB Q6HR PRN Rx#:[id number] Potassium Chloride 20 meq 100 In Water For Injection 1 100ml.bag @ 50 mls/hr IVPB ONCE ONE Rx#: [id number] Sodium Chloride 0.9% 1, 180 000 ml @ 30 mls/hr IV . Q24H [facility] Rx#:[id number] sodium chloride 0.9% 1, 360 130 000 ml KVO Intake, IV Titration 0.5 45.758 27.422 Amount Norepinephrin 16 mg-0.9% 0.5 45.758 27.422 Ns Pmx 16 mg In 250 ml @ Titrate IV .Q0M [facility] Rx#: [id number] Output: Urine 92 75 54 Other: Voiding Method Indwelling Catheter Indwelling Catheter Indwelling Catheter ABP, PAP, CO, CI - Last Documented Arterial Blood Pressure 102/44 - Exam GENERAL: Patient awake alert but could not communicate/speak. Follow simple commands but very confused. HEENT: Pupils are round and equally reacting to light. EOMI. No scleral icterus. No conjunctival pallor. Normocephalic, atraumatic. No pharyngeal erythema. No thyromegaly. CARDIOVASCULAR: S1 and S2 present. No murmurs, rubs, or gallops. Tachycardic PULMONARY: Good air entry treatment with mechanical ventilator . Scattered rhonchi and bibasilar crackles are appreciated ABDOMEN: Soft, nontender, nondistended, normoactive bowel sounds. No palpable organomegaly. PD catheter present. MUSCULOSKELETAL: No joint swelling or deformity. EXTREMITIES: Multiple ulcerations in bilateral lower limbs and wounds please refer to nursing documentation for further details, markedly diminished bilateral dorsalis pedis pulses. Toes of bilateral feet dark purple. Black, Necrotic digits on bilateral hands involving right fourth finger and left third and fourth fingers.Stage II Right Buttock-nondraining. NEUROLOGICAL: Currently unable to assess. SKIN: No rashes. - Labs CBC & Chem 7: 09/05/17 05:10 09/05/17 05:10 Labs: Abnormal Lab Results - Last 24 Hours (Table) 09/04/17 09/04/17 09/05/17 Range/Units 18:21 23:53 05:07 WBC (3.8-10.6) k/uL RBC (3.80-5.40) m/uL Hgb (11.4-16.0) gm/dL Hct (34.0-46.0) % BUN (7-17) mg/dL Creatinine (0.52-1.04) mg/dL Glucose (74-99) mg/dL POC Glucose (mg/dL) 182 H 154 H 35 L (75-99) mg/dL Calcium (8.4-10.2) mg/dL Phosphorus (2.5-4.5) mg/dL AST (14-36) U/L Total Protein (6.3-8.2) g/dL Albumin (3.5-5.0) g/dL 09/05/17 09/05/17 09/05/17 Range/Units 05:10 05:10 05:10 WBC 18.4 H (3.8-10.6) k/uL RBC 2.59 L (3.80-5.40) m/uL Hgb 7.7 L (11.4-16.0) gm/dL Hct 24.0 L (34.0-46.0) % BUN 47 H (7-17) mg/dL Creatinine 3.50 H (0.52-1.04) mg/dL Glucose 29 L* (74-99) mg/dL POC Glucose (mg/dL) 34 L (75-99) mg/dL Calcium 7.6 L (8.4-10.2) mg/dL Phosphorus 6.1 H (2.5-4.5) mg/dL AST 73 H (14-36) U/L Total Protein 4.3 L (6.3-8.2) g/dL Albumin 1.8 L (3.5-5.0) g/dL 09/05/17 09/05/17 09/05/17 Range/Units 05:25 06:01 06:25 WBC (3.8-10.6) k/uL RBC (3.80-5.40) m/uL Hgb (11.4-16.0) gm/dL Hct (34.0-46.0) % BUN (7-17) mg/dL Creatinine (0.52-1.04) mg/dL Glucose (74-99) mg/dL POC Glucose (mg/dL) 107 H 56 L 119 H (75-99) mg/dL Calcium (8.4-10.2) mg/dL Phosphorus (2.5-4.5) mg/dL AST (14-36) U/L Total Protein (6.3-8.2) g/dL Albumin (3.5-5.0) g/dL 09/05/17 09/05/17 09/05/17 Range/Units 07:30 10:53 10:55 WBC (3.8-10.6) k/uL RBC (3.80-5.40) m/uL Hgb (11.4-16.0) gm/dL Hct (34.0-46.0) % BUN (7-17) mg/dL Creatinine (0.52-1.04) mg/dL Glucose (74-99) mg/dL POC Glucose (mg/dL) 105 H 59 L 55 L (75-99) mg/dL Calcium (8.4-10.2) mg/dL Phosphorus (2.5-4.5) mg/dL AST (14-36) U/L Total Protein (6.3-8.2) g/dL Albumin (3.5-5.0) g/dL 09/05/17 Range/Units 11:14 WBC (3.8-10.6) k/uL RBC (3.80-5.40) m/uL Hgb (11.4-16.0) gm/dL Hct (34.0-46.0) % BUN (7-17) mg/dL Creatinine (0.52-1.04) mg/dL Glucose (74-99) mg/dL POC Glucose (mg/dL) 123 H (75-99) mg/dL Calcium (8.4-10.2) mg/dL Phosphorus (2.5-4.5) mg/dL AST (14-36) U/L Total Protein (6.3-8.2) g/dL Albumin (3.5-5.0) g/dL Assessment and Plan Assessment: -Possible metabolic ENCEPHALOPATHY. CT head negative. -Acute abdominal sepsis secondary to peritonitis with enterococcus fecaliths., possibly related to PD catheter-though initial white count 170 with repeat PD fluid cell count 35, peritoneal fluid positive for enterococcus faecialis. -Septic shock with possibility of cardiogenic shock secondary to acute NSTEMI. Severe cardiomyopathy ejection fraction of around 25%. -Acute hypotension secondary to the above, pressor dependent. 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 Plan: Continue on current medication regime ,monitoring and symptomatic treatment. Antibiotics/Wound Care as per ID. pulmonary and ID is following. Follow closely with multiple consults. Patient's overall prognosis is poor. Time with Patient: Greater than 30
[2017-09-05 23:33] LABS: Glucose,Whole Blood 118 mg/dL (75-99)
[2017-09-06] MEDS: INSULIN ASPART 100 UNIT/ML 1 ML 10 ML VIAL SQ SCH ×4 (00:26→18:23)
[2017-09-06] MEDS: DIALYSIS (PERIT 1.5%) 2,000 ML 30 G/2,000 ML BAG INTRAPERIT SCH ×4 (00:32→18:24)
[2017-09-06 04:54] LABS: HCT 23.7 % (34.0-46.0); HGB 7.6 gm/dL (11.4-16.0); Hypochromasia Slight; MCH 29.6 pg (25.0-35.0); MCHC 31.9 g/dL (31.0-37.0); MCV 92.8 fL (80.0-100.0); Mean Platelet Volume 7.7; Platelet Count 250 k/uL (150-450); RBC 2.55 m/uL (3.80-5.40); RDW 14.2 % (11.5-15.5); WBC 15.9 k/uL (3.8-10.6)
[2017-09-06 05:07] LABS: Albumin 1.8 g/dL (3.5-5.0); Calcium 7.2 mg/dL (8.4-10.2); Magnesium 1.8 mg/dL (1.6-2.3); Phosphorus 6.3 mg/dL (2.5-4.5); Total Bilirubin 0.2 mg/dL (0.2-1.3); Total Protein 4.3 g/dL (6.3-8.2)
[2017-09-06 05:12] LABS: Vancomycin,Random 25.2 ug/mL
[2017-09-06 05:43] LABS: Glucose,Whole Blood 162 mg/dL (75-99)
[2017-09-06] MEDS: IPRATROPIUM-ALBUTEROL 3 ML NEB INHALATION SCH ×4 (07:04→21:15)
[2017-09-06] MEDS: HEPARIN SODIUM,PORCINE 5,000 UNIT/ML 1 ML VIAL SQ SCH ×2 (08:04→22:07)
[2017-09-06] MEDS: MIDODRINE 5 MG TAB PO SCH ×2 (08:04→18:24)
[2017-09-06] MEDS: SEVELAMER 800 MG TAB PO SCH ×3 (08:04→18:24)
[2017-09-06] MEDS: LEVOTHYROXINE IVP 100 MCG/5 ML VIAL IV SCH (08:04)
[2017-09-06] MEDS: METOPROLOL TARTRATE 12.5 MG TAB PO SCH (08:05)
[2017-09-06] MEDS: PANTOPRAZOLE 40 MG/10 ML VIAL IVP SCH (08:05)
[2017-09-06] MEDS: SODIUM CHLORIDE 0.9% 1,000 ML IV SCH (08:06)
--- NOTE | 2017-09-06 08:12 | XR ---
EXAMINATION TYPE: XR chest 1V portable DATE OF EXAM: 09/06/2017 COMPARISON: 09/05/2017 HISTORY: Shortness of breath TECHNIQUE: Single frontal view of the chest is obtained. FINDINGS: Elevated hemidiaphragms consistent with low lung inflation at the moment of x-ray exposure . Prominent overlying soft tissues. There is [id number] silhouetting of the pulmonary vasculatu re by a fine reticular pattern of increased density throughout the lungs. This suggests mild intersti tial phase pulmonary edema. Pleural spaces negative as seen, but the radiograph is taken in the supin e patient position. Cardiac silhouette does not appear enlarged. Bones are unremarkable. Note: Supine sonography cannot exclude pneumothorax or pneumoperitoneum. IMPRESSION: Correlate for CHF. Otherwise consider interstitial pneumonitis or pneumonia.
[2017-09-06] MEDS: ASPIRIN 300 MG SUPP RECTAL SCH (08:30)
--- NOTE | 2017-09-06 09:17 | P.PN ---
Subjective Progress Note Date: 09/06/17 Principal diagnosis: Acute hypoxic respiratory failure secondary to congestive heart failure, systolic in nature, abdominal sepsis secondary to Enterococcus faecalis Acute hypoxic respiratory failure secondary to congestive heart failure, systolic in nature, abdominal sepsis. Secondary to enterococcus faecalis This is a 67-year-old female patient with multiple medical problems and comorbidities who presented to ED with acute respiratory distress, intubated and placed on a mechanical ventilator and then moved to the intensive care unit. The patient has taken all of her care at [facility]. She has chronic renal failure and she currently has end stage renal disease and she is seeking kidney transportation the patient has been evaluated at [facility] for potential kidney transplant the daughter being her daughter. This patient lives in [place] and she recently moved in with her daughter living in [facility], and for that reason during this current episode the patient was brought in to our hospital. All of the information was obtained is from the daughters at the bedside This patient has developed renal failure, probably related to previous history of diabetes mellitus. She was started on peritoneal dialysis approximately year ago and she does nighttime cycler continuous with a 1.5 fluid exchange. This was started on high-dose in November 2016. Hemodialysis was considered and the patient was about to have a left upper extremity AV fistula. The fistula itself got clotted and the patient developed also ulceration in her digits bilaterally and for that reason this was not pursued. Currently the patient is gangrenous necrotic digits of the middle fingers of the left and the fourth finger on the right, affecting the tips. This was investigated at length at [facility]. The patient underwent a CT angios of the entire chest abdomen pelvis and extremities and she was found to have no significant subclavian axillary or brachial artery narrowing. She was found to have diffuse atherosclerosis with calcification of the bilateral radial and ulnar arteries and mild to moderate narrowing in the areas affecting the wrist. Atherosclerotic changes were also seen in the infrarenal abdominal aortic area which was estimated to be severe. Bilateral iliofemoral atherosclerotic changes were also seen. The patient was told to have small vessel disease and based on the reported history there was no evidence of any embolic phenomena or vasculitis The patient is known to have coronary artery disease and she has undergone pleased bypass surgery. She was morbidly obese and she was diabetic. She has undergone gastric bypass surgery more than 6 years ago and she has lost considerable amount of weight and during this time the patient was taken off as soon as she improved in terms of her blood sugar control and she started having episodes of hypoglycemia. Currently she is off anticoagulation. She also has chronic atrial fibrillation, chronic renal failure and currently she is on peritoneal dialysis, she hasn't complications of hyperkalemia, and she has history of hypertension, hyperlipidemia, hypothyroidism, peripheral vascular disease and previous history of coronary artery disease and myocardial infarction. The patient was at her daughter's home where she was feeling weak. In the annual giving director hours the patient was found by the daughter collapsed in the bathroom. No reported chest pain or palpitations. No focal neurological deficit. The patient was lethargic and she was arousable and she was able to speak. She was moving all 4 extremities according to the history. No fever. No chills. No cough or sputum production. No nausea, vomiting or abdominal pain. The PD catheter was apparently functional. No skin rashes. Necrotic digits were seen bilaterally and these are dry gangrene. In the ED, the patient was found to be hypotensive postintubation. The patient was started on IV fluids and pressors. The patient was started on epinephrine infusion. She was intubated and blood gas showed severe metabolic acidosis. The chest x-ray shows cardiomegaly and pulmonary vessel congestion. ET tube was in a good location. No consolidation . Meanwhile, the patient's white cell count was at 14.2. The patient had a potassium level of 6.5 was being treated in the emergency department with a combination of Kayexalate, D50 and insulin and bicarb and the patient was severely acidotic with anion gap metabolic acidosis with a gap of 26 and a bicarb level of 5, creatinine of 9.4, and a troponin level of 1.2. EKG is not showing any acute ischemic abnormalities and is showing a normal sinus rhythm with a left bundle-branch block pattern. Subsequent potassium level was 7.1. Waldemar saw the patient in the ICU and we're going to start peritoneal dialysis. Meanwhile the patient is being resuscitated IV fluids. We'll start empiric antibiotic coverage. We'll monitor cardiac enzymes and obtain an echocardiogram. The computed tomography scan of the brain and C-spine showed no evidence of acute fracture and there was no evidence of any acute intracranial hemorrhage. On 08/28/2018 I'm seeing this patient for a follow-up. This is a very complicated case with present it with severe metabolic acidosis, respiratory failure, hyperkalemia and hypotension. The patient is being seen today in a follow-up. The patient remains sedated on a mechanical ventilator. This morning, she doesn't assist-control at the rate of 22, tidal volume 600, FiO2 of 50% and a PEEP of 5. Blood gases showed a component of acute respiratory alkalosis and the pH was at 7.47 with a pCO2 of 27 and pO2 1:30. Based on that , I dropped the tidal volume down to 500 by mouth I also drop the FiO2 down to 40%. Chest x-ray still showing a component of pulmonary vessel congestion and small bilateral pleural effusion. CT angios the chest was done yesterday and showed cardiomegaly and bilateral pleural effusion and pulmonary vascular congestion. He was no evidence of any pulmonary embolism. The patient is only on few mics of the low-fat for hemodynamic support. Troponin peaked at 7 and the patient is still on IV heparin and aspirin.. The patient had an echocardiogram yesterday that showed severe impaired LV function with an ejection fraction of 25-30%. In addition, there was segmental wall motion abnormalities involving the inferior wall and anteroseptal wall septum. The right ventricular pressure was estimated to be 42 mmHg. There was no significant valvular abnormalities. Left atrium was dilated. There was mild aortic stenosis. The patient had cultures sent and the blood culture and the abdominal fluid culture came back all negative. She remains on a combination of vancomycin and meropenem. Afebrile. White cell count is not elevated. Infected has dropped from 17 down to 11.9. Potassium level has also dropped down to 3.7 and the patient has a bicarb level which is up to 17. Calcium level is at 6.4. Phosphorus level is at 8.1. The patient was receiving abdominal PD 4 times a day with a 1.5% solution. Furthermore, the patient was noted to be somewhat hypothyroid with a TSH of 101 100 and a free T4 of 0.74. She was placed on 100 mg of IV Synthroid on a daily basis. Her hypothermia has also recovered. She is on tube feeds for now. Family is at the bedside. On 08/29/2017, I'm seeing this patient for a follow-up. The patient remains intubated on mechanical ventilator. This morning, she did assist-control mode at a rate of 22, tidal volume 500, FiO2 of 40% and a PEEP of 5. The blood gases still showing a component of respiratory alkalosis with a pH of 7.49 and a pCO2 of 32 and pO2 97. Based on this, I dropped the tidal volume down to 450. The patient will be given a sedation holiday again and we'll check weaning parameters and assess his readiness to wean. Upon yesterday's sedation holiday, the patient woke up last and she was able to follow some simple commands. Hemodynamically, the patient is still requiring 2 mics of epinephrine for blood pressure control. The patient is undergoing peritoneal dialysis with several exchanges on a daily basis with her 2.5% solution. The patient has no fever. No chills. Cultures of been negative. She was covered with a combination of Merrem and vancomycin. White cell count is at 17.4. The serum bicarb is up to 21 and there is no hyperkalemia. No other significant abnormalities otherwise for now. Patient was reevaluated today on 08/30/2017, remains on mechanical ventilation, intubated, sedated, remains on relatively high FiO2 100% which I cut down to 70% , and PEEP is at 8. Patient has abnormal chest x-ray showing interstitial edema , I believe the patient has fluid overload although the possibility of noncardiogenic pulmonary edema is not entirely ruled out, but considering the patient's LV dysfunction and considering she has an EF of 25%, this is most likely cardiogenic pulmonary edema in nature. Patient is not making much urine , she is still under peritoneal dialysis, and I believe we are not able to remove significant amount of fluids to improve her pulmonary status. Patient may eventually require hemodialysis. However she is still on a small dose of levo fed, may be able to cut it down and eventually arrange for hemodialysis. Labs were reviewed WBC count is 21.1 hemoglobin is 9.1 ABG showed a pO2 of 87 pCO2 of 34 pH of 7.38. Basic metabolic profile was reviewed continues to have an iron gap of 18 BUN is 67 creatinine 4.60. Chest x-ray as noted above endotracheal tube is intact and in the proper position. Chest x-ray again is consistent with pulmonary edema. Patient was reevaluated today on 08/31/2017, remains on mechanical ventilation, her ventilator settings are tidal volume of 450, assist control rate of 20 FiO2 is 50%, and PEEP is now at 5. Remains on levo fed at 7 mcg/m. Chest x-ray continues to show interstitial edema, and pleural effusions, slight improvement compared to yesterday's chest x-ray. ABG seems to be a lot better today, pO2 was 205 pCO2 29 pH of 7.51. BUN is 65 creatinine 4.29. Electrolytes otherwise are relatively unremarkable. Bicarb is 22. Patient remains on peritoneal dialysis, urine output is less than 10 mL per hour. Final microbiology report is pending, peritoneal fluid was positive for group D enterococcus. Patient remains on vancomycin and Merrem. Changes may be made once we have a final report on the cultures. Patient remains on propofol drip, not quite ready for any weaning trials. Today I will initiate enteral nutrition. Reevaluated today on 09/01/2017, patient remains on mechanical ventilation, ventilator settings are the same, however I was able to cut down the FiO2 to 40 % today. Remains on 4 g of levo fed, chest x-ray is showing worsening right- sided pleural effusion, hence may consider an ultrasound and thoracentesis. Patient is presently on heparin, if thoracentesis is to be done, will hold the heparin for few hours. Oxygenation is improving, and ABG seems to be better today. Hence I have instructed the nurses to wake up the patient, assess her mental status, assess possibly weaning parameters, and even consider a weaning trial today. Ultrasound was ordered, and may even consider thoracentesis. Patient is on propofol, we will hold the propofol and assess mental status today. ABG showed a pO2 of 128 pCO2 of 32 pH of 7.47. Lactulose were reviewed renal profile was reviewed WBC count is 22.2 hemoglobin is 8.8. Discussed with the engineer gas pumping station, still the option of hemodialysis is to be considered if the patient does not continue to improve and cannot wean easily. Remains on antibiotics for her Enterococcus faecalis infection/peritonitis. Remains on enteral feeding and is being well-tolerated. Patient was reevaluated today on 09/02/2017, remains on mechanical ventilation, patient is off propofol for the last 24 hours, waking up, but unable to follow simple instructions yet. Opens eyes, but does not show any other responses. Cannot maintain a good eye contact. Chest x-ray has shown a significant improvement. Especially in the left pleural effusion, her gases are excellent, however considering her mental status, the patient is definitely not quite ready to be extubated at this point yet. No plans to do thoracentesis on this patient at this point. ABG showed a pO2 of 88 pCO2 of 27 pH of 7.60, patient is on 40% FiO2, and the same vent settings as noted above including tidal volume of 450, her rate was cut down to 12, and her FiO2 remains at 40% and PEEP is at 5. She is off norepinephrine. I switch the patient to a pressure support of 8 and CPAP, it is well-tolerated, however again considering her mental status him not quite ready to extubate the patient at this point yet. All labs were reviewed. Cultures from the peritoneal fluid were reviewed. Patient remains on vancomycin. Merrem was discontinued. Patient was reevaluated today on 09/03/2017, has been on pressure support and CPAP overnight, patient is doing well, her tidal volume is excellent, and her respiratory rate is in the teens. Her ABG was reviewed this morning, chest x- ray was reviewed, there is definite improvement in her chest x-ray and her oxygenation, patient is a bit more awake, follows simple instructions, but not fully 100% awake. She seems to be generally weak, and cannot have a good cough. Considering her overall clinical picture, I felt it would be the best time at this point to extubate the patient. Family was made aware of her overall condition, family is at bedside, we've and discussed the CODE STATUS and possible reintubation if she fails. If the patient is to be reintubated, they are well aware that she will eventually require tracheostomy if she does fail this time. Reviewed her chest x-ray, reviewed all the labs ABG, weaning parameters, and proceeded to extubating the patient to a nasal cannula. ABG on pressure support and CPAP showed a pO2 of 151 pCO2 of 34 pH of 7.50. CBC is relatively unremarkable, hemoglobin is a bit low but not unexpected considering her renal failure. Reevaluated today on 09/04/2017, patient tolerated extubation well, however her mental status seems to be a bit concerning. Patient is following very simple instructions like opening eyes and closing eyes, sometimes may wiggle her toes upon request, however not squeezing hands, and clearly does not seem to be alert or oriented. CT of the brain was done, came back basically nondiagnostic. Neurological consultation was initiated. Patient has been off narcotics and sedatives for almost over 2 days. Metabolically, her CBC is relatively unremarkable. And her basic metabolic profile is relatively normal except for BUN of 51 creatinine of 3.29. Family is at bedside, updated on her condition. And updated on the computed tomography scan of the brain findings. Neurology was consulted. Reevaluated today on 09/05/2017, patient is doing much per her today, at least she is showing some neurological responses, minimal communication, able to follow more simple instructions. But overall remains confused. Tries to answer simple questions, squeezing hands, sticking out her tongue were requested , closing eyes, but she remained generally weak and I believe she is still not fully alert and oriented. Continues to have a nasal trumpet in place, and we are using that for suctioning, able to cough when suctioned through the trumpet. Blood pressure was noted a bit low today, hence she is on norepinephrine at 4 mcg/m, I have started her on IV fluid at 50 mL per hour. I have also instructed speech therapy evaluation, and possibly swallow evaluation and maybe start feeding however if she has issues with feeding we'll may have to consider a Dobbhoff tube in this patient. Unable to recognize patient's in the room related to her. CBC showed WBC count of 18.4, electrolytes are normal. BUN is 47 creatinine is 3.50. Blood sugar was noted to be low today, and she received D50. On 09/06/2017 patient seen in follow-up. She is awake, alert, although confused , and oriented only to person. Disoriented to place and time. Currently on room air, with a pulse ox of 99%, she has had low-grade fevers of T-max of 99.1 F. Hemodynamically stable, maintenance IV fluids include 0.9 at a rate of 10 ML per hour, Levothroid is currently off. Today's chest x-ray has been reviewed , and shows [id number] silhouetting of the pulmonary vasculature, consistent with fluid overload, and right lower lobe infiltrate or atelectasis. Clinically patient denies any shortness of breath, or chest pain. Denies any distress. Cardiology results have been reviewed, and peritoneal fluid was positive for Enterococcus faecalis, and the patient is on vancomycin. He was initially intubated in the ER on 08/27/2017, then extubated on 08/29/2017, then again reintubated on 08/30/2017 and extubated on 09/03/2017, so far she is tolerating extubation well. Her mentation is improving, she is having her peritoneal dialysis exchanges every 6 hours, nephrology is following. Days labs were reviewed, leukocytosis is trending down, the FVC is down to 15.9, hemoglobin is 7.6, renal profile is relatively unchanged. Sodium is 135, potassium is 4.0, chloride is 98, CO2 is 25. Overall patient is improving. We' ll continue with current medical treatment. Objective - Vital Signs Vital signs: Vital Signs Temp 99.0 F 09/06/17 06:53 Pulse 91 09/06/17 07:15 Resp 16 09/06/17 06:53 BP 113/54 09/06/17 06:53 Pulse Ox 97 09/06/17 06:53 Intake & Output 09/05/17 09/06/17 09/06/17 18:59 06:59 18:59 Intake Total 500.189 360 Output Total 54 0 Balance 446.189 360 Weight 60.4 kg 62 kg Intake: IV 470 360 ACETAMINOPHEN IV (For NPO 100 ) 1,000 mg In Empty Bag 1 bag @ 400 mls/hr IVPB Q6HR PRN Rx#:[id number] Potassium Chloride 20 meq 100 In Water For Injection 1 100ml.bag @ 50 mls/hr IVPB ONCE ONE Rx#: [id number] Sodium Chloride 0.9% 1, 270 360 000 ml @ 30 mls/hr IV . Q24H [facility] Rx#:[id number] Intake, IV Titration 30.189 Amount Norepinephrin 16 mg-0.9% 30.189 Ns Pmx 16 mg In 250 ml @ Titrate IV .Q0M [facility] Rx#: [id number] Output: Urine 54 0 Other: Voiding Method Indwelling Catheter Indwelling Catheter ABP, PAP, CO, CI - Last Documented Arterial Blood Pressure 96/45 - Exam Physical exam revealed a 67-year-old female, chronically ill, in no distress, off mechanical ventilation, on room air Head exam was generally normal. There was no scleral icterus or corneal arcus. Mucous membranes were moist. Neck was supple and without jugular venous distension, thyromegaly, or carotid bruits. Carotids were easily palpable bilaterally. There was no adenopathy. Lungs sounds are diminished bilaterally, no crackles or rhonchi or wheezes, Heart sounds irregular irregular rhythm, positive S1-S2, no significant murmurs appreciated. Abdominal exam revealed normal bowel sounds. The abdomen was soft, non-tender, and without masses, organomegaly, or appreciable enlargement of the abdominal aorta. The patient has a PD catheter which is in place and there is no direct tenderness Extremities revealed no edema. Pulses in lower extremities are markedly diminished. The patient has necrotic digits at the tips of the digits involving the third mid finger on the left and the fourth finger on the right. There is evidence of dry gangrene. No evidence of any wound infection. The area is pretty much black and necrotic. No lower extremities edema. No cyanosis. Neurologic : Opens eyes, follows instructions/simple instructions, still confused as to place and time - Labs CBC & Chem 7: 09/06/17 04:45 09/06/17 04:45 Labs: Abnormal Lab Results - Last 24 Hours (Table) 09/05/17 09/05/17 09/05/17 Range/Units 10:53 10:55 11:14 WBC (3.8-10.6) k/uL RBC (3.80-5.40) m/uL Hgb (11.4-16.0) gm/dL Hct (34.0-46.0) % Sodium (137-145) mmol/L BUN (7-17) mg/dL Creatinine (0.52-1.04) mg/dL Glucose (74-99) mg/dL POC Glucose (mg/dL) 59 L 55 L 123 H (75-99) mg/dL Calcium (8.4-10.2) mg/dL Phosphorus (2.5-4.5) mg/dL AST (14-36) U/L Alkaline Phosphatase (38-126) U/L Total Protein (6.3-8.2) g/dL Albumin (3.5-5.0) g/dL 09/05/17 09/05/17 09/06/17 Range/Units 17:24 23:32 04:45 WBC 15.9 H (3.8-10.6) k/uL RBC 2.55 L (3.80-5.40) m/uL Hgb 7.6 L (11.4-16.0) gm/dL Hct 23.7 L (34.0-46.0) % Sodium (137-145) mmol/L BUN (7-17) mg/dL Creatinine (0.52-1.04) mg/dL Glucose (74-99) mg/dL POC Glucose (mg/dL) 113 H 118 H (75-99) mg/dL Calcium (8.4-10.2) mg/dL Phosphorus (2.5-4.5) mg/dL AST (14-36) U/L Alkaline Phosphatase (38-126) U/L Total Protein (6.3-8.2) g/dL Albumin (3.5-5.0) g/dL 09/06/17 09/06/17 Range/Units 04:45 05:42 WBC (3.8-10.6) k/uL RBC (3.80-5.40) m/uL Hgb (11.4-16.0) gm/dL Hct (34.0-46.0) % Sodium 135 L (137-145) mmol/L BUN 43 H (7-17) mg/dL Creatinine 3.40 H (0.52-1.04) mg/dL Glucose 190 H (74-99) mg/dL POC Glucose (mg/dL) 162 H (75-99) mg/dL Calcium 7.2 L (8.4-10.2) mg/dL Phosphorus 6.3 H (2.5-4.5) mg/dL AST 50 H (14-36) U/L Alkaline Phosphatase 131 H (38-126) U/L Total Protein 4.3 L (6.3-8.2) g/dL Albumin 1.8 L (3.5-5.0) g/dL Assessment and Plan Plan: Assessment: 1 acute hypoxic respiratory failure, multifactorial, The patient has a component of fluid overload and pulmonary vessel congestion small bilateral pleural effusion. The severe metabolic acidosis has resolved. 2 acute hypotension , resolved, and off norepinephrine today. 3 acute non-STEMI NC troponin peaked at 7, still on a combination of aspirin, IV heparin has been discontinued 4 coronary artery disease with previous coronary artery bypass surgery 5 End stage renal disease on hemodialysis via peritoneal dialysis. The patient has been on PD since November 2016. 6 acute hyperkalemia secondary to severe metabolic acidosis, resolved 7 severe anion gap metabolic acidosis, resolved 8 history of obesity status post gastric bypass surgery 9 diabetes mellitus recovered following bariatric surgery and the patient is currently on no diabetic medications 10 hypertension, history of 11 hypothyroidism, chemically still hypothyroid with a TSH of more than 100 and a free T4 of 0.74 and the patient will be kept on IV Synthroid. 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 15 seeking kidney transplantation at [facility] 16 chronic anemia, normocytic 17 hypoproteinemia and hypoalbuminemia 18 hypothermia, recovered 19 severe peripheral vascular disease 20 acute abdominal sepsis the peritoneal fluid is positive for Enterococcus faecalis, vancomycin susceptible. Remains on vancomycin, presently off Merrem Recommendation: Patient was extubated on 09/03/2017, tolerated the extubation well, patient remains off vasopressor support, remains afebrile. Continue current antibiotic coverage in the form of vancomycin. Hemodynamically stable, tolerating peritoneal dialysis exchanges, renal profile is stable. Metabolic acidosis has resolved, mentation is improving, although patient remains confused. Encourage deep breathing and coughing, continue nebulized bronchodilators, he remains nothing by mouth, she is awaiting a swallow evaluation. I performed a history & physical examination of the patient and discussed their management with my nurse practitioner, Tracy Landers. I reviewed the nurse practitioner's note and agree with the documented findings and plan of care. Lung sounds are diminished. The findings and the impression was discussed with the patient. I attest to the documentation by the nurse practitioner. Time with Patient: Greater than 30
[2017-09-06] MEDS: DIALYSIS (PERIT 2.5%) 2,000 ML 50 G/2,000 ML BAG INTRAPERIT SCH (10:25)
--- NOTE | 2017-09-06 11:45 | PN ---
PROGRESS NOTE Patient is seen for followup for end-stage renal disease. She has been extubated. She is sitting up on a bedside chair. Patient communicated; however, she appears confused. She has had a swallowing eval and did have some episodes of cough. Awaiting a barium swallow. PHYSICAL EXAMINATION: On examination, blood pressure is 126/71, heart rate 94 per minute. Patient is afebrile. EXAMINATION OF THE HEART: S1, S2. EXAMINATION OF THE LUNGS: Bilateral breath sounds are heard. Abdomen is soft, nontender. Examination of the lower extremities shows no evidence of edema. CONFIGURATION MANAGER exam is grossly intact. Patient moving all 4 extremities. However, she is confused. LABS: Labs show sodium 135, potassium 4.0, BUN 43, serum creatinine 3.4, calcium 7.2, phosphorus 6.3, albumin 1.8. ASSESSMENT: 1. End-stage renal disease currently on peritoneal dialysis. We will continue current PD exchanges of 1.5% solution q.6 hours. 2. Volume overload, currently significantly improved. 3. Anemia of chronic disease. No active bleeding noted. Maintained on Aranesp. 4. Respiratory failure, status post extubation. 5. Hypotension from sepsis from peritonitis, currently improved. 6. CAPD peritonitis with fluid culture that grew Enterococcus faecalis, maintained on daptomycin. PLAN: Continue current PD exchanges. Await barium swallow results. MMODL / IJN: [id number] /
[2017-09-06 12:43] LABS: Glucose,Whole Blood 154 mg/dL (75-99)
[2017-09-06] MEDS: DEXTROSE 5% IN WATER 1,000 ML with SODIUM BICARB (1 MEQ/ML) 150 ML IV SCH (14:00)
--- NOTE | 2017-09-06 16:03 | FL ---
EXAMINATION TYPE: FL barium swallow w video DATE OF EXAM: 09/06/2017 MODIFIED SWALLOW / DEGLUTITION STUDY CLINICAL HISTORY: Dysphagia. Rule out aspiration. TECHNIQUE: Deglutition study is performed utilizing thin liquid barium, barium thick applesauce, and barium coated cracker. A total of 2 minutes 21 seconds of fluoroscopic time was utilized during proc edure. Approximately 9 cine clips are obtained. 0 images are sent or stored to PACS. COMPARISON: None. FINDINGS: Exam is slightly suboptimal due to difficult in patient positioning. The oral and pharyngea l phases show satisfactory initiation and propagation with all modalities tested. Normal mastication is seen with solid modalities tested. There is no evidence of penetration or aspiration with any mo dality tested. No significant pharyngeal residue was appreciated. IMPRESSION: No penetration or aspiration observed. Please refer to speech therapist notes for furthe r details if necessary.
--- NOTE | 2017-09-06 16:12 | EEG ---
ELECTROENCEPHALOGRAM REPORT DATE OF SERVICE: 09/06/2017. REASON FOR TESTING: Syncope and altered mental status. DESCRIPTION OF THE PROCEDURE: This EEG was performed using a 21 channel digital electroencephalograph, following international 10-20 system. DESCRIPTION OF THE RECORDING: From the beginning of the tracing, with patient's eyes closed, the background rhythm was mostly consisting of 7 Hz theta frequency in the posterior occipital leads. No obvious asymmetry is seen. Frequent muscle and movement artifacts are seen. Photic stimulation was performed with no driving response seen. No pathological waves were elicited. More frequent artifacts are seen including lead artifacts and muscle artifacts later in the tracing. Hyperventilation was not performed. The patient remains awake throughout the tracing. No epileptiform discharges were seen. Her EKG lead showed a regular rate and rhythm. INTERPRETATION: This awake EEG is limited due to the frequency of movement and muscle artifacts. No obvious epileptiform discharges were seen. The absence of epileptiform discharges does not rule out the diagnosis of epilepsy, therefore clinical correlation is recommended. MMHUMZA / STUARTN: [id number] /
--- NOTE | 2017-09-06 17:38 | P.PN ---
Subjective Progress Note Date: 09/06/17 67-year-old female presented visit care unit where she was intubated sedated and mechanically ventilated receiving her CAPD. Is related from the available data that she receives her to [facility] and has been cared for in [facility] in [place] where she's been evaluated for renal transplantation from a living related donor, her daughter. The patient has a long-standing history of diabetes mellitus type 2 and has end- stage renal disease related to this and normally is cared for with. Dialysis via the nighttime cycler, and has been doing this well in November 2016. Patient has known severe peripheral vascular disease and did apparently have a left upper extremity AV fistula that was placed however did not function well and with the what appears to be steal syndrome is without evidence the dry gangrenous third and fourth fingers of the left hand. Is also developed a dry gangrenous changes to the right hand middle finger also. consider gastric bypass she remains with severe obesity although apparently it has improved and she has underlying cardiovascular disease and severe peripheral vascular disease. the patient has evidence of a peritoneal dialysis sample with evidence of enterococcus and with at the infectious diseases consultation was requested. 08/31/2017 patient remains in intensive care unit intubated sedated and mechanically ventilated with decreasing doses of vasopressor therapy, epinephrine has been discontinued. The patient has been tolerating her CAPD well and is now getting into some negative balance. Nephrology has evaluated is holding on hemodialysis as long as CAPD continues to be effective. Laboratory has finalize the culture as enterococcus, not VRE, from the peritoneal fluid. Blood culture negative so far sputum culture is pending. 09/01/2017 patient is had some further improvement. Her sedation is being held with contemplation for further weaning tomorrow. She's not having fever. Vasopressor therapy has been weaned. The peritoneal dialysis is allowing some improvement of her volume overload and her creatinine is improving 09/02/2017 there is been some further improvement today. She has been weaned off of sedatives and is having some response to her name and did follow command earlier. She is in a weaning trial seems doing relatively well. Appear to dialysis is continuing to allow a negative fluid balance which will put will further help her respiratory status. No other positive cultures are noted except for the enterococcus of the peritoneal fluid. 09/03/2017 the patient is extubated. She is a bit more interactive. CAPD continues to have affected negative fluid balance. 09/06/2017 the patient has been extubated and is able to communicate. Her cognitive abilities seem to be quite diminished, in that simple questions are answered but then makes very little sense answering some other more complex questions. She denies pain at this time. She also denied being short of breath. Objective - Vital Signs Vital signs: Vital Signs Temp 99.1 F 09/06/17 16:01 Pulse 96 09/06/17 16:36 Resp 15 09/06/17 16:01 BP 113/54 09/06/17 06:53 Pulse Ox 94 L 09/06/17 16:01 Intake & Output 09/05/17 09/06/17 09/06/17 18:59 06:59 18:59 Intake Total 500.189 360 300 Output Total 54 0 0 Balance 446.189 360 300 Weight 60.4 kg 62 kg 62 kg Intake: IV 470 360 300 ACETAMINOPHEN IV (For NPO 100 ) 1,000 mg In Empty Bag 1 bag @ 400 mls/hr IVPB Q6HR PRN Rx#:[id number] Potassium Chloride 20 meq 100 In Water For Injection 1 100ml.bag @ 50 mls/hr IVPB ONCE ONE Rx#: [id number] Sodium Chloride 0.9% 1, 270 360 300 000 ml @ 30 mls/hr IV . Q24H [facility] Rx#:[id number] Intake, IV Titration 30.189 Amount Norepinephrin 16 mg-0.9% 30.189 Ns Pmx 16 mg In 250 ml @ Titrate IV .Q0M [facility] Rx#: [id number] Output: Urine 54 0 0 Other: Voiding Method Indwelling Catheter Indwelling Catheter Indwelling Catheter ABP, PAP, CO, CI - Last Documented Arterial Blood Pressure 138/53 - Exam 67-year-old female who appears older than her stated age, she is now extubated and seems comfortable HEENT: Anicteric conjunctiva are pink and moist nasal mucosa grossly intact without significant lesions, there is no thrush.poor dentition Neck: The neck is supple without significant lymphadenopathy or thyromegaly. Lungs: there is symmetrical air entry with expiratory wheezes that are scattered no herber bronchial sounds are heard Heart: irregular with audible S1 and S2 soft S4 no distinct murmur click or rub PMI was nondisplaced with urethral Abdomen: Positive bowel sounds soft nonrigid without palpable masses or organomegaly. Extremities: the right upper extremities shows evidence of the third finger distal mummification, similar has occurred third finger to the left hand. The lower extremities are cool but not frankly cold no significant open ulcerations are seen been on the current vasopressor therapy the toes are dusky. Neuro: She verbally answers to her name. She answers simple questions well specifically our review having pain :no, RU having abdominal pain: no. But when asking how she feels today is not able to answer. - Labs CBC & Chem 7: 09/06/17 04:45 09/06/17 04:45 Labs: Abnormal Lab Results - Last 24 Hours (Table) 09/05/17 09/05/17 09/06/17 Range/Units 17:24 23:32 04:45 WBC 15.9 H (3.8-10.6) k/uL RBC 2.55 L (3.80-5.40) m/uL Hgb 7.6 L (11.4-16.0) gm/dL Hct 23.7 L (34.0-46.0) % Sodium (137-145) mmol/L BUN (7-17) mg/dL Creatinine (0.52-1.04) mg/dL Glucose (74-99) mg/dL POC Glucose (mg/dL) 113 H 118 H (75-99) mg/dL Calcium (8.4-10.2) mg/dL Phosphorus (2.5-4.5) mg/dL AST (14-36) U/L Alkaline Phosphatase (38-126) U/L Total Protein (6.3-8.2) g/dL Albumin (3.5-5.0) g/dL 09/06/17 09/06/17 09/06/17 Range/Units 04:45 05:42 12:42 WBC (3.8-10.6) k/uL RBC (3.80-5.40) m/uL Hgb (11.4-16.0) gm/dL Hct (34.0-46.0) % Sodium 135 L (137-145) mmol/L BUN 43 H (7-17) mg/dL Creatinine 3.40 H (0.52-1.04) mg/dL Glucose 190 H (74-99) mg/dL POC Glucose (mg/dL) 162 H 154 H (75-99) mg/dL Calcium 7.2 L (8.4-10.2) mg/dL Phosphorus 6.3 H (2.5-4.5) mg/dL AST 50 H (14-36) U/L Alkaline Phosphatase 131 H (38-126) U/L Total Protein 4.3 L (6.3-8.2) g/dL Albumin 1.8 L (3.5-5.0) g/dL Laboratory Results WBC 15.9 k/uL (3.8-10.6) H 09/06/17 04:45 RBC 2.55 m/uL (3.80-5.40) L 09/06/17 04:45 Hgb 7.6 gm/dL (11.4-16.0) L 09/06/17 04:45 Hct 23.7 % (34.0-46.0) L 09/06/17 04:45 MCV 92.8 fL (80.0-100.0) 09/06/17 04:45 MCH 29.6 pg (25.0-35.0) 09/06/17 04:45 MCHC 31.9 g/dL (31.0-37.0) 09/06/17 04:45 RDW 14.2 % (11.5-15.5) 09/06/17 04:45 Plt Count 250 k/uL (150-450) 09/06/17 04:45 Neutrophils % 85 % 09/02/17 04:00 Lymphocytes % 8 % 09/02/17 04:00 Monocytes % 3 % 09/02/17 04:00 Eosinophils % 3 % 09/02/17 04:00 Basophils % 0 % 09/02/17 04:00 Neutrophils # 11.8 k/uL (1.3-7.7) H 09/02/17 04:00 Lymphocytes # 1.1 k/uL (1.0-4.8) 09/02/17 04:00 Monocytes # 0.5 k/uL (0-1.0) 09/02/17 04:00 Eosinophils # 0.4 k/uL (0-0.7) 09/02/17 04:00 Basophils # 0.0 k/uL (0-0.2) 09/02/17 04:00 Hypochromasia Slight 09/06/17 04:45 Anisocytosis Slight 08/28/17 04:00 PT 13.7 sec (9.0-12.0) H 08/28/17 04:00 INR 1.5 (<1.2) H 08/28/17 04:00 APTT 44.0 sec (22.0-30.0) H 09/02/17 04:00 D-Dimer 5.03 mg/L FEU (<0.60) H 08/27/17 04:44 Sample Site [place] 09/03/17 07:22 ABG pH 7.50 (7.35-7.45) H 09/03/17 07:22 ABG pCO2 34 mmHg (35-45) L 09/03/17 07:22 ABG pO2 151 mmHg (83-108) H 09/03/17 07:22 ABG HCO3 26 mmol/L (21-25) H 09/03/17 07:22 ABG Total CO2 27 mmol/L (19-24) H 09/03/17 07:22 ABG O2 Saturation 98.4 % (94-97) H 09/03/17 07:22 ABG Base Excess 3.1 mmol/L 09/03/17 07:22 Rhett Test No 09/03/17 07:22 ABG Lactic Acid 4.2 mmol/L (0.5-1.6) H* 08/27/17 16:01 FiO2 40 % 09/03/17 07:22 Sodium 135 mmol/L (137-145) L 09/06/17 04:45 Potassium 4.0 mmol/L (3.5-5.1) 09/06/17 04:45 Chloride 98 mmol/L (98-107) 09/06/17 04:45 Carbon Dioxide 25 mmol/L (22-30) 09/06/17 04:45 Anion Gap 12 mmol/L 09/06/17 04:45 BUN 43 mg/dL (7-17) H 09/06/17 04:45 Creatinine 3.40 mg/dL (0.52-1.04) H 09/06/17 04:45 Est GFR (CKD-EPI)AfAm 16 (>60 ml/min/1.73 sqM) 09/06/17 04:45 Est GFR (CKD-EPI)NonAf 14 (>60 ml/min/1.73 sqM) 09/06/17 04:45 Glucose 190 mg/dL (74-99) H 09/06/17 04:45 POC Glucose (mg/dL) 154 mg/dL (75-99) H 09/06/17 12:42 POC Glu Block Hand ID Claudio Rosa 09/06/17 12:[address] Glu mg/dL 103 08/27/17 10:35 Hemoglobin A1c 5.2 % (4.0-6.0) 08/27/17 10:35 Lactic Ac Sepsis Rflx Y 08/27/17 11:19 Plasma Lactic Acid Kana mmol/L (0.7-2.0) 08/27/17 10:35 Calcium 7.2 mg/dL (8.4-10.2) L 09/06/17 04:45 Ionized Calcium Karlo 3.5 mg/dL (4.5-5.3) L* 09/02/17 06:00 Phosphorus 6.3 mg/dL (2.5-4.5) H 09/06/17 04:45 Magnesium 1.8 mg/dL (1.6-2.3) 09/06/17 04:45 Total Bilirubin 0.2 mg/dL (0.2-1.3) 09/06/17 04:45 AST 50 U/L (14-36) H 09/06/17 04:45 ALT 39 U/L (9-52) 09/06/17 04:45 Alkaline Phosphatase 131 U/L (38-126) H 09/06/17 04:45 Total Creatine Kinase 292 U/L (30-135) H 08/30/17 04:00 CK-MB (CK-2) 9.5 ng/mL (0.0-2.4) H* 08/30/17 04:00 CK-MB (CK-2) Rel Index 3.3 08/30/17 04:00 Troponin I 9.540 ng/mL (0.000-0.034) H* 08/30/17 04:00 Total Protein 4.3 g/dL (6.3-8.2) L 09/06/17 04:45 Albumin 1.8 g/dL (3.5-5.0) L 09/06/17 04:45 Triglycerides 62 mg/dL (<150) 08/28/17 04:00 Cholesterol 104 mg/dL (<200) 08/28/17 04:00 LDL Cholesterol, Calc 41 mg/dL (0-99) 08/28/17 04:00 HDL Cholesterol 51 mg/dL (40-60) 08/28/17 04:00 TSH >100.000 mIU/L (0.465-4.680) H 08/27/17 10:35 Free T4 0.74 ng/dL (0.78-2.19) L 08/27/17 10:35 Urine Color Yellow 08/27/17 20:00 Urine Appearance Cloudy (Clear) H 08/27/17 20:00 Urine pH 5.0 (5.0-8.0) 08/27/17 20:00 Ur Specific [place] 1.020 (1.001-1.035) 08/27/17 20:00 Urine Protein 1+ (Negative) H 08/27/17 20:00 Urine Glucose (UA) 3+ (Negative) H 08/27/17 20:00 Urine Ketones Negative (Negative) 08/27/17 20:00 Urine Blood Small (Negative) H 08/27/17 20:00 Urine Nitrite Negative (Negative) 08/27/17 20:00 Urine Bilirubin Negative (Negative) 08/27/17 20:00 Urine Urobilinogen <2.0 mg/dL (<2.0) 08/27/17 20:00 Ur Leukocyte Esterase Small (Negative) H 08/27/17 20:00 Urine RBC 1 /hpf (0-5) 08/27/17 20:00 Urine WBC 12 /hpf (0-5) H 08/27/17 20:00 Ur Squamous Epith Cells 11 /hpf (0-4) H 08/27/17 20:00 Amorphous Sediment Few /hpf (None) H 08/27/17 20:00 Hyaline Casts 3 /lpf (0-2) H 08/27/17 20:00 Urine Mucus Rare /hpf (None) H 08/27/17 20:00 Fluid Source Peritoneal 09/02/17 13:20 Fluid Color Colorless 09/02/17 13:20 Fluid Appearance Clear 09/02/17 13:20 Fluid RBC 13 /uL 09/02/17 13:20 Fluid Nucleated Cells 4 /uL 09/02/17 13:20 Fluid Polynuclear WBCs 81 % 08/29/17 14:09 Fluid Mononuclear WBCs 19 % 08/29/17 14:09 Random Vancomycin 25.2 ug/mL 09/06/17 04:45 C. difficile (EIA) Intrp Negative (Negative) 09/01/17 13:35 Microbiology 08/27/17 11:00 Blood Blood Culture - Final No Growth after 144 hours 08/27/17 14:10 Peritoneal Fluid Gram Stain - Final 08/27/17 14:10 Peritoneal Fluid Body Fluid Culture - Final Enterococcus faecalis 08/30/17 03:57 Sputum Gram Stain - Final 08/30/17 03:57 Sputum Sputum Culture - Final 08/27/17 23:20 Sputum Gram Stain - Final 08/27/17 23:20 Sputum Sputum Culture - Final 08/27/17 20:00 Urine,Catheterized Urine Culture - Final Assessment and Plan (1) Respiratory failure Current Visit: Yes Status: Acute Code(s): J96.90 - RESPIRATORY FAILURE, UNSP , UNSP W HYPOXIA OR HYPERCAPNIA SNOMED Code(s): 357020811 (2) Renal failure Current Visit: Yes Status: Acute Code(s): N19 - UNSPECIFIED KIDNEY FAILURE SNOMED Code(s): 92082488 (3) Bacterial infection associated with peritoneal dialysis catheter Narrative/Plan: 67-year-old female who is in the intensive care unit she is intubated sedated and mechanically ventilated due to her significant sepsis and hypotension at this time. There is concerns that she has an enterococcal peritonitis related to her CAPD. She's been evaluated by nephrology as well as surgery. At this time antimicrobial therapy has been initiated with vancomycin. Potentially may receive vancomycin in the dialysate if nephrology believes it is a potential. Follow-up sample should be obtained to ensure that there some improvement. there is discussion about the potential for hemodialysis but she is too hypotensive at this point in time. there is no data to suggest that she has a history of VRE will continue vancomycin therapy for now. Cultures for further direct antibiotic therapy. She is receiving meropenem also for now until further data is available. significant leukocytosis occurring directly related to her peritonitis. 08/31/2017 the patient has had similar treatment. Her significant acidosis is improved and is tolerating the CAPD somewhat better actually getting some negative fluid balance. As far as the peritonitis and sepsis appears to be somewhat better today. She is requiring less vasopressor therapy. Leukocytosis remains elevated at 23.8. Of note her creatinine has come down to 4.29 from a peak of 7.9, revealing that the CAPD is showing some affective nature. At this time will continue the antibiotic therapy with vancomycin per pharmacy dosing. Meropenem is being utilize also for now pending sputum culture results, once this is clear that there is not significant gram-negative pneumonia the meropenem can be streamlined. The patient sounds are present and they are updated on her situation. The opti foam will be applied to the stage III pressure ulceration to her buttocks that is present on admission, it was unstageable at admission. 09/01/2017 patient has had some improvement. There is contemplation for further weaning trials in the morning if her mentation continues to improve. She is off vasopressor therapy and with the peritoneal dialysis her creatinine is starting to improve. We'll expect as her sepsis improves and the uremia improves her mentation should further improve. We'll continue vancomycin at this time. If other cultures remain negative we'll be able to discontinue the meropenem tomorrow. Continue treatment for the stage III pressure ulceration with the optifoam. 09/02/2017 patient continues to have some further improvement. Weaning trials are ongoing at this time. The patient seems comfortable. We'll be able to discontinue meropenem at this point in time with no other further positive cultures. The plan 10-14 days of vancomycin for the enterococcus peritonitis. Fortunately fluid is cleared and she is doing somewhat better overall. Still has somewhat of a poor prognosis. 09/03/2017 patient has been extubated and seems comfortable. Is doing well with the treatment of her enterococcus peritonitis. At this time would plan to complete 14 days total of therapy for the enterococcal peritonitis with salvage of her CAPD catheter. She seems to be doing considerably better at this time. Nutrition is going to be the next biggest difficulty until her neurological status improves. Meropenem discontinued. 09/06/2017 Patient improved but not at baseline. The peritonitis is improved. Will complete 2 weeks of vancomycin therapy for the enterococcus peritonitis. Being followed by neurology at this time for her metabolic encephalopathy. Her creatinine has improved and nephrology is following guarding the peritoneal dialysis that he has recently allowed her to have a marked improvement of her volume overload. Leukocytosis continues to improve. No evidence of any other new infections at this time. Current Visit: Yes Status: Acute Code(s): T85.71XA - INFECT/INFLM REACTION DUE TO PERITON DIALYSIS CATHETER, INIT; A49.9 - BACTERIAL INFECTION, UNSPECIFIED SNOMED Code(s): 936547849
[2017-09-06 18:13] LABS: Glucose,Whole Blood 189 mg/dL (75-99)
[2017-09-06] MEDS: ACETAMINOPHEN IV (For NPO) 1,000 MG in EMPTY BAG 1 BAG IVPB PRN (19:34)
[2017-09-07] MEDS: DIALYSIS (PERIT 1.5%) 2,000 ML 30 G/2,000 ML BAG INTRAPERIT SCH ×4 (00:23→18:04)
--- NOTE | 2017-09-07 00:23 | P.PN ---
Subjective Progress Note Date: 09/06/17 Principal diagnosis: Peritonitis and sepsis 65-year-old the being treated for acute respiratory failure secondary to sepsis source unclear possibly lower limb ulcerations or peritonitis. Patient remains intubated patient is presently on 40% FiO2 PEEP of 5 and tidal volume of 500 continues to have metabolic acidosis which improved compared to yesterday. Patient is undergoing peritoneal dialysis remains on epinephrine, propofol drip , IV heparin for possible non-ST elevation myocardial infarction, on antibiotics meropenem and vancomycin with the so for negative cultures, very minimal urine output, hypotension improved, possibility of a superimposed cardiac sharp with bilateral pleural effusions 08/29/2017 Patient is off sedation undergoing weaning trials, on 1 g of epinephrine. Patient is awake and arousable intubated on BiPAP through ventilator 08/30/17 reintubated last night with FiO2 at 70%/+8 of PEEP. Chest x-ray reporting increasing lung opacity's, worsening edema and or infiltrates. Maintained on DIprova, heparin and Levophed drips. Troponin up to 9.5. Minimal urine output. Peritoneal dialysis cultures reporting enterococcus. Potential hemodialysis being discussed. Telemetry sinus rhythm. 08/31/17 remains vent dependent. CXR and ABGs improving. FiO2 decreased to 50% and PEEP decreased down to 5%. No weaning trials, yet. Tube feedings being initiated. Bicarb 22. PD changed to every 4 hours with solution adjusted as per nephrology. Levophed down to 7 mics. Maintained on Merrem and vancomycin, peritoneal cultures positive for enterococcus D, final results pending. 09/01/17 continues on antibiotics for enterococcus faecalis peritonitis. remains vent dependent, FiO2 decreased to 40%/+5 of PEEP. ABGs improved. Maintain on heparin, diprovan and Levophed drips. Prior chest ultrasound reported bilateral pleural effusions greater on the left with largest pocket 8.3 cm. Chest x-ray reporting bilateral consolidation, pleural effusions, small amount of subcutaneous emphysema along right lateral chest wall. Chest ultrasound repeated with both left and right-sided marked for possible thoracentesis. Paroximal A. fib, currently sinus rhythm. Pulmonary discussing possible weaning parameters. Tube feeds at goal with minimal to no residuals. 09/02/2017 Patient remained on mechanical ventilator. Changed to per support and is starting to wean off from in today. Patient is able to open her eyes and could not follow any commands. Chest x-ray showed improvement in left pleural effusion. Pulmonary is now planning for thoracentesis at this time. Patient is off pressors support. Patient is being continued on vancomycin for enterococcus fecaliths in the peritoneal fluid. Meropenem has been discontinued. Pulmonary and ID is following. 09/03/2017 Patient was extubated today. Otherwise still confused but able to move her extremities. Could not able to communicate at this time. Patient is generally weak and unable to tolerate oral diet and currently on nothing by mouth. Chest x-ray showed improvement. Patient is being continued on antibiotics otherwise. Peritoneal dialysis every 6 hourly. 09/04/2017 Patient is extubated and is oxygenating well on nausea cannula. Mental status otherwise system confused and could not able to speak at this time. Patient is able to open her eyes and follow simple commands. CT head was done showed no acute intracranial process. No change from prior study Chest x-ray showed right basilar opacity and could represent atelectasis or pneumonia. Neurology was consulted for further evaluation. WBC 14, BUN 51 creatinine 3.29 Discussed with the family at bedside. 09/05/2017 Patient is currently saturating well on nasal cannula. Patient was started back on low-dose Levophed today. Otherwise mental status slightly improved and is able to talk single words occasionally. Patient seems more oriented today. Neurology has seen the patient. Repeat CT head was ordered. Swallowing evaluation tomorrow. No fever no chills. Patient is being continued on antibiotics and parenteral dialysis as scheduled. 09/06/2017 Patient is awake and more oriented today. Able to communicate slowly. Otherwise patient did well with swallow study. Patient is off pressors support. Anticipate starting on oral diet tomorrow. No fever no chills. Saturating well on nasal cannula. Leukocytosis improving to 15.9 complaints of chest pain or worsening shortness of breath. No nausea vomiting or abdominal pain. Review of systems could not be obtained from the patient. Current medications reviewed. Active Medications Generic Name Dose Route Start Last Admin Trade Name Freq PRN Reason Stop Dose Admin Albuterol/Ipratropium 3 ml 08/27/17 12:00 09/05/17 20:23 Duoneb 0.5 Mg-3 Mg/3 Ml Soln INHALATION 3 ml RT-QID ALEXANDRA Administration Albuterol/Ipratropium 3 ml 08/27/17 10:09 Duoneb 0.5 Mg-3 Mg/3 Ml Soln INHALATION RT-Q2H PRN Shortness Of Breath Or Wheezing Aspirin 300 mg 09/04/17 11:00 09/05/17 08:10 Aspirin RECTAL 300 mg DAILY ALEXANDRA Administration Calcium Carbonate/Glycine 500 mg 08/30/17 09:39 Tums PO DAILY PRN Heartburn Heparin Sodium (Porcine) 5,000 unit 09/02/17 21:00 09/05/17 21:46 Heparin SQ 5,000 unit Q12HR ALEXANDRA Administration Norepinephrine Bitartrate 16 mg in 250 mls @ 0 mls/hr 08/30/17 03:15 15:59 Levophed-0.9% Nacl 16 Mg/250ml Pmx IV 1 mcg/min .Q0M ALEXANDRA 0.938 mls/hr Protocol Titration Titrate Propofol 1,000 mg/ IV Solution 100 mls @ 0 mls/hr 08/30/17 04:45 09/01/17 10: 15 IV Infused .Q0M ALEXANDRA Titration Protocol Titrate Sodium Chloride 1,000 mls @ 30 mls/hr 09/05/17 09:45 09/05/17 11:01 Saline 0.9% IV 30 mls/hr .Q24H ALEXANDRA Administration Peritoneal Dialysis Solution 30 g in 2,000 mls @ 0 mls/hr 09/05/17 12:15 01/13 17:47 Delflex With 1.5% Dextrose (2,000 Ml) INTRAPERIT 2,000 mls/hr Q6HR ALEXANDRA Administration Protocol As Directed Acetaminophen 1,000 mg/ IV 100 mls @ 400 mls/hr 09/05/17 12:46 09/05/17 13:44 Solution IVPB 09/06/17 06:14 400 mls/hr Q6HR PRN Administration Fever and/ or Pain Insulin Aspart 0 unit 08/30/17 12:00 09/05/17 17:24 Novolog SQ Not Given Q6H ALEXANDRA Protocol Levothyroxine Sodium 100 mcg 08/28/17 09:00 09/05/17 08:09 Synthroid Ivp IV 100 mcg DAILY ALEXANDRA Administration Metoprolol Tartrate 12.5 mg 08/28/17 10:00 09/05/17 08:00 Lopressor PO Not Given DAILY ALEXANDRA Midodrine 5 mg 08/29/17 17:30 09/05/17 15:59 Proamatine PO Not Given AC-BID [facility] Miscellaneous Information 1 each 08/27/17 09:49 Pharmacy To Dose Iv Vancomycin MISCELLANE DIRECTED PRN Per Protocol Miscellaneous Information 1 each 08/28/17 06:03 Potassium Per Protocol MISCELLANE DAILY PRN Per Protocol Protocol Morphine Sulfate 2 mg 08/27/17 07:52 09/05/17 03:20 Morphine Sulfate (Inj) IVP 2 mg Q5M PRN Administration Chest Pain Pantoprazole Sodium 40 mg 08/27/17 10:15 09/05/17 08:09 Protonix IVP 40 mg DAILY ALEXANDRA Administration Sevelamer Carbonate 800 mg 08/30/17 12:30 09/05/17 15:59 Renvela PO Not Given TID-W/MEALS [facility] Objective - Vital Signs Vital signs: Vital Signs Temp 99.3 F 09/06/17 19:00 Pulse 97 09/06/17 19:00 Resp 19 09/06/17 19:00 BP 113/54 09/06/17 06:53 Pulse Ox 92 L 09/06/17 19:00 Intake & Output 09/06/17 09/06/17 09/07/17 06:59 18:59 06:59 Intake Total 360 390 Output Total 0 125 Balance 360 265 Weight 62 kg 62 kg Intake: IV 360 390 Sodium Chloride 0.9% 1, 360 390 000 ml @ 30 mls/hr IV . Q24H [facility] Rx#:[id number] Output: Urine 0 125 Other: Voiding Method Indwelling Catheter Indwelling Catheter ABP, PAP, CO, CI - Last Documented Arterial Blood Pressure 104/53 - Exam GENERAL: Patient awake alert and oriented. Able to communicate slowly. HEENT: Pupils are round and equally reacting to light. EOMI. No scleral icterus. No conjunctival pallor. Normocephalic, atraumatic. No pharyngeal erythema. No thyromegaly. CARDIOVASCULAR: S1 and S2 present. No murmurs, rubs, or gallops. Tachycardic PULMONARY: Good air entry treatment with mechanical ventilator . Scattered rhonchi and bibasilar crackles are appreciated ABDOMEN: Soft, nontender, nondistended, normoactive bowel sounds. No palpable organomegaly. PD catheter present. MUSCULOSKELETAL: No joint swelling or deformity. EXTREMITIES: Multiple ulcerations in bilateral lower limbs and wounds please refer to nursing documentation for further details, markedly diminished bilateral dorsalis pedis pulses. Toes of bilateral feet dark purple. Black, Necrotic digits on bilateral hands involving right fourth finger and left third and fourth fingers.Stage II Right Buttock-nondraining. NEUROLOGICAL: No focal deficits noted. Patient does have generalized weakness. SKIN: No lesions. No rashes. - Labs CBC & Chem 7: 09/06/17 04:45 09/06/17 04:45 Labs: Abnormal Lab Results - Last 24 Hours (Table) 09/05/17 09/06/17 09/06/17 Range/Units 23:32 04:45 04:45 WBC 15.9 H (3.8-10.6) k/uL RBC 2.55 L (3.80-5.40) m/uL Hgb 7.6 L (11.4-16.0) gm/dL Hct 23.7 L (34.0-46.0) % Sodium 135 L (137-145) mmol/L BUN 43 H (7-17) mg/dL Creatinine 3.40 H (0.52-1.04) mg/dL Glucose 190 H (74-99) mg/dL POC Glucose (mg/dL) 118 H (75-99) mg/dL Calcium 7.2 L (8.4-10.2) mg/dL Phosphorus 6.3 H (2.5-4.5) mg/dL AST 50 H (14-36) U/L Alkaline Phosphatase 131 H (38-126) U/L Total Protein 4.3 L (6.3-8.2) g/dL Albumin 1.8 L (3.5-5.0) g/dL 09/06/17 09/06/17 09/06/17 Range/Units 05:42 12:42 18:12 WBC (3.8-10.6) k/uL RBC (3.80-5.40) m/uL Hgb (11.4-16.0) gm/dL Hct (34.0-46.0) % Sodium (137-145) mmol/L BUN (7-17) mg/dL Creatinine (0.52-1.04) mg/dL Glucose (74-99) mg/dL POC Glucose (mg/dL) 162 H 154 H 189 H (75-99) mg/dL Calcium (8.4-10.2) mg/dL Phosphorus (2.5-4.5) mg/dL AST (14-36) U/L Alkaline Phosphatase (38-126) U/L Total Protein (6.3-8.2) g/dL Albumin (3.5-5.0) g/dL Assessment and Plan Assessment: -Acute metabolic ENCEPHALOPATHY. CT head negative.. Improving clinically. -Acute abdominal sepsis secondary to peritonitis with enterococcus fecalis., possibly related to PD catheter-though initial white count 170 with repeat PD fluid cell count 35, peritoneal fluid positive for enterococcus faecialis. -Septic shock with possibility of cardiogenic shock secondary to acute NSTEMI. Severe cardiomyopathy ejection fraction of around 25%. -Acute hypotension secondary to the above, pressor dependent. Currently off pressors support -Acute Hypoxic respiratory failure, mechanical ventilator-dependent, re- intubated. Currently extubated. 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 Plan: Continue on current medication regime ,monitoring and symptomatic treatment. Antibiotics in the form of vancomycin. Antibiotics/Wound Care as per ID. pulmonary and ID is following. Follow closely with multiple consults. Patient's overall prognosis is poor. Time with Patient: Greater than 30
[2017-09-07] MEDS: MORPHINE SULFATE 2 MG/ML SYRINGE IVP PRN (00:55)
[2017-09-07 01:03] LABS: Glucose,Whole Blood 118 mg/dL (75-99)
[2017-09-07] MEDS: INSULIN ASPART 100 UNIT/ML 1 ML 10 ML VIAL SQ SCH ×5 (01:06→21:59)
[2017-09-07 04:54] LABS: HCT 21.5 % (34.0-46.0); Hypochromasia Slight; MCH 29.3 pg (25.0-35.0); MCHC 31.2 g/dL (31.0-37.0); MCV 93.8 fL (80.0-100.0); Mean Platelet Volume 7.5; Platelet Count 253 k/uL (150-450); RBC 2.29 m/uL (3.80-5.40); RDW 14.3 % (11.5-15.5); WBC 14.9 k/uL (3.8-10.6)
[2017-09-07 05:02] LABS: Calcium 6.9 mg/dL (8.4-10.2); Magnesium 1.7 mg/dL (1.6-2.3); Potassium 3.6 mmol/L (3.5-5.1)
[2017-09-07 05:06] LABS: HGB 6.7 gm/dL (11.4-16.0)
[2017-09-07 05:59] LABS: Glucose,Whole Blood 171 mg/dL (75-99)
--- NOTE | 2017-09-07 06:41 | P.PN ---
Subjective Progress Note Date: 09/06/17 Principal diagnosis: altered mental status, toxic metabolic encephalopathy Neurology is following a 67-year-old female admitted for significant complex medical issues. Patient was admitted to the ED with respiratory distress, diabetes mellitus, history of peritoneal dialysis, gangrenous necrotic digits. patient does have significant cardiac history as well. patient is at home was found weak, collapsed in the bathroom floor. Patient was lethargic but arousable. Patient was able to move all 4 extremities at that time. In the ED patient was found to be hypotensive. She was given fluids and pressors. Epinephrine infusion started. Patient was intubated and noted to have severe metabolic acidosis. Patient at that time had elevated WBCs, severely acidotic, metabolic acidosis. EKG noted left bundle branch block. Surgery saw the patient and was going to start peritoneal dialysis. Patient was fluid resuscitated, antibiotic therapy started, CT brain showed no acute process. Patient was managed by ICU team though on a ventilator from 08/28-09/02-11/13. The patient was extubated but her mental status never returned to baseline. Patient would follow simple commands, squeeze hands and was most recently more alert but still had difficulty with orientation. Patient has been off sedatives and narcotics for several days. ICU team including infectious disease as well is managing patient. Team is attempting to correct her lying abnormal blood work as well as dialysis status. On contact today, patient was awake in bed, alert but not oriented, would follow some simple commands, would give both appropriate and inappropriate responses to simple questions. Patient's EEG was unremarkable. Objective - Vital Signs Vital signs: Vital Signs Temp 98.8 F 09/07/17 01:00 Pulse 98 09/07/17 05:00 Resp 20 09/07/17 05:00 BP 69/49 09/07/17 05:00 Pulse Ox 98 09/07/17 01:00 Intake & Output 09/06/17 09/06/17 09/07/17 06:59 18:59 06:59 Intake Total 360 390 300 Output Total 0 125 125 Balance 360 265 175 Weight 62 kg 62 kg Intake: IV 360 390 300 Sodium Chloride 0.9% 1, 360 390 300 000 ml @ 30 mls/hr IV . Q24H [facility] Rx#:[id number] Output: Urine 0 125 125 Other: Voiding Method Indwelling Catheter Indwelling Catheter Indwelling Catheter ABP, PAP, CO, CI - Last Documented Arterial Blood Pressure 87/47 - Exam General appearance: Alert & oriented x4, no apparent distress. Head: Atraumatic, normocephalic, normal inspection Eyes: PERRLA, sluggish Ear, nose and throat: Normal exam, mucous membranes moist Neck: Normal inspection, absent tenderness, lymphadenopathy. Respiratory: No increased work of breathing Cardiovascular: monitored GI/abdominal: no rigidity, no guarding Extremities: unable to significantly move lower extremities, minimal movement of upper extremities Neurological: cranial nerves II through XII -unable to be fully assessed no lateralizing weaknessEmma generalized weakness of upper and lower extremities no seizure activity noted on physical exam no pronator drift and no nystagmus. negative Babinski Negative Kernig's Negative nuchal rigidity Psychological: Mood and affect appropriate for setting. - Labs CBC & Chem 7: 09/07/17 04:45 09/07/17 04:45 Labs: Abnormal Lab Results - Last 24 Hours (Table) 09/06/17 09/06/17 09/07/17 Range/Units 12:42 18:12 01:02 WBC (3.8-10.6) k/uL RBC (3.80-5.40) m/uL Hgb (11.4-16.0) gm/dL Hct (34.0-46.0) % Sodium (137-145) mmol/L Chloride (98-107) mmol/L BUN (7-17) mg/dL Creatinine (0.52-1.04) mg/dL Glucose (74-99) mg/dL POC Glucose (mg/dL) 154 H 189 H 118 H (75-99) mg/dL Calcium (8.4-10.2) mg/dL 09/07/17 09/07/17 09/07/17 Range/Units 04:45 04:45 05:57 WBC 14.9 H (3.8-10.6) k/uL RBC 2.29 L (3.80-5.40) m/uL Hgb 6.7 L* (11.4-16.0) gm/dL Hct 21.5 L (34.0-46.0) % Sodium 135 L (137-145) mmol/L Chloride 97 L (98-107) mmol/L BUN 39 H (7-17) mg/dL Creatinine 3.50 H (0.52-1.04) mg/dL Glucose 146 H (74-99) mg/dL POC Glucose (mg/dL) 171 H (75-99) mg/dL Calcium 6.9 L (8.4-10.2) mg/dL Assessment and Plan (1) Metabolic encephalopathy Current Visit: Yes Status: Acute Code(s): G93.41 - METABOLIC ENCEPHALOPATHY SNOMED Code(s): 54812695 (2) Renal failure Current Visit: Yes Status: Acute Code(s): N19 - UNSPECIFIED KIDNEY FAILURE SNOMED Code(s): 15828101 Plan: 1. Toxic metabolic encephalopathy: Given the patient's multiple complex comorbidities, the patient does appear to be experiencing TME of multifactorial etiology. CT brain on 09/05/17 noted no new acute process only chronic small vessel ischemic disease. EEG negative. Continue to correct abnormal labs and treat infectious process. At this time it is unclear whether the patient will return to her previous baseline given her significant decline and multiple comorbidities. neurology will continue to follow on an as-needed basis. Please notify our office if neurology's input is needed in the future.
--- NOTE | 2017-09-07 09:03 | P.PN ---
Subjective Progress Note Date: 09/07/17 Principal diagnosis: Acute hypoxic respiratory failure secondary to congestive heart failure, systolic in nature, abdominal sepsis secondary to Enterococcus faecalis Acute hypoxic respiratory failure secondary to congestive heart failure, systolic in nature, abdominal sepsis. Secondary to enterococcus faecalis This is a 67-year-old female patient with multiple medical problems and comorbidities who presented to ED with acute respiratory distress, intubated and placed on a mechanical ventilator and then moved to the intensive care unit. The patient has taken all of her care at [facility]. She has chronic renal failure and she currently has end stage renal disease and she is seeking kidney transportation the patient has been evaluated at [facility] for potential kidney transplant the daughter being her daughter. This patient lives in [place] and she recently moved in with her daughter living in [facility], and for that reason during this current episode the patient was brought in to our hospital. All of the information was obtained is from the daughters at the bedside This patient has developed renal failure, probably related to previous history of diabetes mellitus. She was started on peritoneal dialysis approximately year ago and she does nighttime cycler continuous with a 1.5 fluid exchange. This was started on high-dose in November 2016. Hemodialysis was considered and the patient was about to have a left upper extremity AV fistula. The fistula itself got clotted and the patient developed also ulceration in her digits bilaterally and for that reason this was not pursued. Currently the patient is gangrenous necrotic digits of the middle fingers of the left and the fourth finger on the right, affecting the tips. This was investigated at length at [facility]. The patient underwent a CT angios of the entire chest abdomen pelvis and extremities and she was found to have no significant subclavian axillary or brachial artery narrowing. She was found to have diffuse atherosclerosis with calcification of the bilateral radial and ulnar arteries and mild to moderate narrowing in the areas affecting the wrist. Atherosclerotic changes were also seen in the infrarenal abdominal aortic area which was estimated to be severe. Bilateral iliofemoral atherosclerotic changes were also seen. The patient was told to have small vessel disease and based on the reported history there was no evidence of any embolic phenomena or vasculitis The patient is known to have coronary artery disease and she has undergone pleased bypass surgery. She was morbidly obese and she was diabetic. She has undergone gastric bypass surgery more than 6 years ago and she has lost considerable amount of weight and during this time the patient was taken off as soon as she improved in terms of her blood sugar control and she started having episodes of hypoglycemia. Currently she is off anticoagulation. She also has chronic atrial fibrillation, chronic renal failure and currently she is on peritoneal dialysis, she hasn't complications of hyperkalemia, and she has history of hypertension, hyperlipidemia, hypothyroidism, peripheral vascular disease and previous history of coronary artery disease and myocardial infarction. The patient was at her daughter's home where she was feeling weak. In the manufacturing engineer paint hours the patient was found by the daughter collapsed in the bathroom. No reported chest pain or palpitations. No focal neurological deficit. The patient was lethargic and she was arousable and she was able to speak. She was moving all 4 extremities according to the history. No fever. No chills. No cough or sputum production. No nausea, vomiting or abdominal pain. The PD catheter was apparently functional. No skin rashes. Necrotic digits were seen bilaterally and these are dry gangrene. In the ED, the patient was found to be hypotensive postintubation. The patient was started on IV fluids and pressors. The patient was started on epinephrine infusion. She was intubated and blood gas showed severe metabolic acidosis. The chest x-ray shows cardiomegaly and pulmonary vessel congestion. ET tube was in a good location. No consolidation . Meanwhile, the patient's white cell count was at 14.2. The patient had a potassium level of 6.5 was being treated in the emergency department with a combination of Kayexalate, D50 and insulin and bicarb and the patient was severely acidotic with anion gap metabolic acidosis with a gap of 26 and a bicarb level of 5, creatinine of 9.4, and a troponin level of 1.2. EKG is not showing any acute ischemic abnormalities and is showing a normal sinus rhythm with a left bundle-branch block pattern. Subsequent potassium level was 7.1. Waldemar saw the patient in the ICU and we're going to start peritoneal dialysis. Meanwhile the patient is being resuscitated IV fluids. We'll start empiric antibiotic coverage. We'll monitor cardiac enzymes and obtain an echocardiogram. The computed tomography scan of the brain and C-spine showed no evidence of acute fracture and there was no evidence of any acute intracranial hemorrhage. On 08/28/2018 I'm seeing this patient for a follow-up. This is a very complicated case with present it with severe metabolic acidosis, respiratory failure, hyperkalemia and hypotension. The patient is being seen today in a follow-up. The patient remains sedated on a mechanical ventilator. This morning, she doesn't assist-control at the rate of 22, tidal volume 600, FiO2 of 50% and a PEEP of 5. Blood gases showed a component of acute respiratory alkalosis and the pH was at 7.47 with a pCO2 of 27 and pO2 1:30. Based on that , I dropped the tidal volume down to 500 by mouth I also drop the FiO2 down to 40%. Chest x-ray still showing a component of pulmonary vessel congestion and small bilateral pleural effusion. CT angios the chest was done yesterday and showed cardiomegaly and bilateral pleural effusion and pulmonary vascular congestion. He was no evidence of any pulmonary embolism. The patient is only on few mics of the low-fat for hemodynamic support. Troponin peaked at 7 and the patient is still on IV heparin and aspirin.. The patient had an echocardiogram yesterday that showed severe impaired LV function with an ejection fraction of 25-30%. In addition, there was segmental wall motion abnormalities involving the inferior wall and anteroseptal wall septum. The right ventricular pressure was estimated to be 42 mmHg. There was no significant valvular abnormalities. Left atrium was dilated. There was mild aortic stenosis. The patient had cultures sent and the blood culture and the abdominal fluid culture came back all negative. She remains on a combination of vancomycin and meropenem. Afebrile. White cell count is not elevated. Infected has dropped from 17 down to 11.9. Potassium level has also dropped down to 3.7 and the patient has a bicarb level which is up to 17. Calcium level is at 6.4. Phosphorus level is at 8.1. The patient was receiving abdominal PD 4 times a day with a 1.5% solution. Furthermore, the patient was noted to be somewhat hypothyroid with a TSH of 101 100 and a free T4 of 0.74. She was placed on 100 mg of IV Synthroid on a daily basis. Her hypothermia has also recovered. She is on tube feeds for now. Family is at the bedside. On 08/29/2017, I'm seeing this patient for a follow-up. The patient remains intubated on mechanical ventilator. This morning, she did assist-control mode at a rate of 22, tidal volume 500, FiO2 of 40% and a PEEP of 5. The blood gases still showing a component of respiratory alkalosis with a pH of 7.49 and a pCO2 of 32 and pO2 97. Based on this, I dropped the tidal volume down to 450. The patient will be given a sedation holiday again and we'll check weaning parameters and assess his readiness to wean. Upon yesterday's sedation holiday, the patient woke up last and she was able to follow some simple commands. Hemodynamically, the patient is still requiring 2 mics of epinephrine for blood pressure control. The patient is undergoing peritoneal dialysis with several exchanges on a daily basis with her 2.5% solution. The patient has no fever. No chills. Cultures of been negative. She was covered with a combination of Merrem and vancomycin. White cell count is at 17.4. The serum bicarb is up to 21 and there is no hyperkalemia. No other significant abnormalities otherwise for now. Patient was reevaluated today on 08/30/2017, remains on mechanical ventilation, intubated, sedated, remains on relatively high FiO2 100% which I cut down to 70% , and PEEP is at 8. Patient has abnormal chest x-ray showing interstitial edema , I believe the patient has fluid overload although the possibility of noncardiogenic pulmonary edema is not entirely ruled out, but considering the patient's LV dysfunction and considering she has an EF of 25%, this is most likely cardiogenic pulmonary edema in nature. Patient is not making much urine , she is still under peritoneal dialysis, and I believe we are not able to remove significant amount of fluids to improve her pulmonary status. Patient may eventually require hemodialysis. However she is still on a small dose of levo fed, may be able to cut it down and eventually arrange for hemodialysis. Labs were reviewed WBC count is 21.1 hemoglobin is 9.1 ABG showed a pO2 of 87 pCO2 of 34 pH of 7.38. Basic metabolic profile was reviewed continues to have an iron gap of 18 BUN is 67 creatinine 4.60. Chest x-ray as noted above endotracheal tube is intact and in the proper position. Chest x-ray again is consistent with pulmonary edema. Patient was reevaluated today on 08/31/2017, remains on mechanical ventilation, her ventilator settings are tidal volume of 450, assist control rate of 20 FiO2 is 50%, and PEEP is now at 5. Remains on levo fed at 7 mcg/m. Chest x-ray continues to show interstitial edema, and pleural effusions, slight improvement compared to yesterday's chest x-ray. ABG seems to be a lot better today, pO2 was 205 pCO2 29 pH of 7.51. BUN is 65 creatinine 4.29. Electrolytes otherwise are relatively unremarkable. Bicarb is 22. Patient remains on peritoneal dialysis, urine output is less than 10 mL per hour. Final microbiology report is pending, peritoneal fluid was positive for group D enterococcus. Patient remains on vancomycin and Merrem. Changes may be made once we have a final report on the cultures. Patient remains on propofol drip, not quite ready for any weaning trials. Today I will initiate enteral nutrition. Reevaluated today on 09/01/2017, patient remains on mechanical ventilation, ventilator settings are the same, however I was able to cut down the FiO2 to 40 % today. Remains on 4 g of levo fed, chest x-ray is showing worsening right- sided pleural effusion, hence may consider an ultrasound and thoracentesis. Patient is presently on heparin, if thoracentesis is to be done, will hold the heparin for few hours. Oxygenation is improving, and ABG seems to be better today. Hence I have instructed the nurses to wake up the patient, assess her mental status, assess possibly weaning parameters, and even consider a weaning trial today. Ultrasound was ordered, and may even consider thoracentesis. Patient is on propofol, we will hold the propofol and assess mental status today. ABG showed a pO2 of 128 pCO2 of 32 pH of 7.47. Lactulose were reviewed renal profile was reviewed WBC count is 22.2 hemoglobin is 8.8. Discussed with the target developer, still the option of hemodialysis is to be considered if the patient does not continue to improve and cannot wean easily. Remains on antibiotics for her Enterococcus faecalis infection/peritonitis. Remains on enteral feeding and is being well-tolerated. Patient was reevaluated today on 09/02/2017, remains on mechanical ventilation, patient is off propofol for the last 24 hours, waking up, but unable to follow simple instructions yet. Opens eyes, but does not show any other responses. Cannot maintain a good eye contact. Chest x-ray has shown a significant improvement. Especially in the left pleural effusion, her gases are excellent, however considering her mental status, the patient is definitely not quite ready to be extubated at this point yet. No plans to do thoracentesis on this patient at this point. ABG showed a pO2 of 88 pCO2 of 27 pH of 7.60, patient is on 40% FiO2, and the same vent settings as noted above including tidal volume of 450, her rate was cut down to 12, and her FiO2 remains at 40% and PEEP is at 5. She is off norepinephrine. I switch the patient to a pressure support of 8 and CPAP, it is well-tolerated, however again considering her mental status him not quite ready to extubate the patient at this point yet. All labs were reviewed. Cultures from the peritoneal fluid were reviewed. Patient remains on vancomycin. Merrem was discontinued. Patient was reevaluated today on 09/03/2017, has been on pressure support and CPAP overnight, patient is doing well, her tidal volume is excellent, and her respiratory rate is in the teens. Her ABG was reviewed this morning, chest x- ray was reviewed, there is definite improvement in her chest x-ray and her oxygenation, patient is a bit more awake, follows simple instructions, but not fully 100% awake. She seems to be generally weak, and cannot have a good cough. Considering her overall clinical picture, I felt it would be the best time at this point to extubate the patient. Family was made aware of her overall condition, family is at bedside, we've and discussed the CODE STATUS and possible reintubation if she fails. If the patient is to be reintubated, they are well aware that she will eventually require tracheostomy if she does fail this time. Reviewed her chest x-ray, reviewed all the labs ABG, weaning parameters, and proceeded to extubating the patient to a nasal cannula. ABG on pressure support and CPAP showed a pO2 of 151 pCO2 of 34 pH of 7.50. CBC is relatively unremarkable, hemoglobin is a bit low but not unexpected considering her renal failure. Reevaluated today on 09/04/2017, patient tolerated extubation well, however her mental status seems to be a bit concerning. Patient is following very simple instructions like opening eyes and closing eyes, sometimes may wiggle her toes upon request, however not squeezing hands, and clearly does not seem to be alert or oriented. CT of the brain was done, came back basically nondiagnostic. Neurological consultation was initiated. Patient has been off narcotics and sedatives for almost over 2 days. Metabolically, her CBC is relatively unremarkable. And her basic metabolic profile is relatively normal except for BUN of 51 creatinine of 3.29. Family is at bedside, updated on her condition. And updated on the computed tomography scan of the brain findings. Neurology was consulted. Reevaluated today on 09/05/2017, patient is doing much per her today, at least she is showing some neurological responses, minimal communication, able to follow more simple instructions. But overall remains confused. Tries to answer simple questions, squeezing hands, sticking out her tongue were requested , closing eyes, but she remained generally weak and I believe she is still not fully alert and oriented. Continues to have a nasal trumpet in place, and we are using that for suctioning, able to cough when suctioned through the trumpet. Blood pressure was noted a bit low today, hence she is on norepinephrine at 4 mcg/m, I have started her on IV fluid at 50 mL per hour. I have also instructed speech therapy evaluation, and possibly swallow evaluation and maybe start feeding however if she has issues with feeding we'll may have to consider a Dobbhoff tube in this patient. Unable to recognize patient's in the room related to her. CBC showed WBC count of 18.4, electrolytes are normal. BUN is 47 creatinine is 3.50. Blood sugar was noted to be low today, and she received D50. On 09/06/2017 patient seen in follow-up. She is awake, alert, although confused , and oriented only to person. Disoriented to place and time. Currently on room air, with a pulse ox of 99%, she has had low-grade fevers of T-max of 99.1 F. Hemodynamically stable, maintenance IV fluids include 0.9 at a rate of 10 ML per hour, Levothroid is currently off. Today's chest x-ray has been reviewed , and shows [id number] silhouetting of the pulmonary vasculature, consistent with fluid overload, and right lower lobe infiltrate or atelectasis. Clinically patient denies any shortness of breath, or chest pain. Denies any distress. Cardiology results have been reviewed, and peritoneal fluid was positive for Enterococcus faecalis, and the patient is on vancomycin. He was initially intubated in the ER on 08/27/2017, then extubated on 08/29/2017, then again reintubated on 08/30/2017 and extubated on 09/03/2017, so far she is tolerating extubation well. Her mentation is improving, she is having her peritoneal dialysis exchanges every 6 hours, nephrology is following. Days labs were reviewed, leukocytosis is trending down, the FVC is down to 15.9, hemoglobin is 7.6, renal profile is relatively unchanged. Sodium is 135, potassium is 4.0, chloride is 98, CO2 is 25. Overall patient is improving. We' ll continue with current medical treatment. On 09/07/2017 patient remains in intensive care unit. She is lethargic, in the nursing reports patient has been sleeping poorly at night, related to her restlessness. She remains confused, and this morning is drifting back to sleep , and is not verbally responding. Room air pulse ox is 97%, patient did have hypotension this morning the blood pressure of 69 with 49, requiring norepinephrine drip which is currently infusing at a rate of 2 mics per minute. Maintenance IV is 0.9 at a rate of 30 ML per hour. These hemoglobin is 6.7, with no obvious source of bleeding, and patient will be transfused with 1 unit of PRBC. Today's chest x-ray has been reviewed, and was consistent with changes of fluid overload, pulmonary edema. Patient continues on peritoneal dialysis exchanges every 6 hours, today's labs reveal BUN of 39, creatinine is 3.5, sodium is 135, potassium is 3.6, chloride is 97, CO2 is 25. Lung sounds are positive for bibasilar crackles, patient does not appear to be in any distress. We will increase the midodrine dose to 10 mg 3 times daily, and wean vasopressor support. We had a discussion with the patient's daughter who is her legal guardian, and CODE STATUS was addressed. Per daughter the patient's wishes are for short-term life-support, but no tracheostomy or and tube insertion. Objective - Vital Signs Vital signs: Vital Signs Temp 99 F 09/07/17 07:00 Pulse 94 09/07/17 07:00 Resp 15 09/07/17 07:00 BP 110/60 09/07/17 07:00 Pulse Ox 98 09/07/17 01:00 Intake & Output 06/11/18 06/12/18 06/12/18 18:59 06:59 18:59 Intake Total 390 330 30 Output Total 125 125 Balance 265 205 30 Weight 62 kg 62.5 kg Intake: IV 390 330 30 Sodium Chloride 0.9% 1, 390 330 30 000 ml @ 30 mls/hr IV . Q24H [facility] Rx#:[id number] Output: Urine 125 125 Other: Voiding Method Indwelling Catheter Indwelling Catheter ABP, PAP, CO, CI - Last Documented Arterial Blood Pressure 101/52 - Exam Physical exam revealed a 67-year-old female, chronically ill, in no distress, confused, lethargic Head exam was generally normal. There was no scleral icterus or corneal arcus. Mucous membranes were moist. Neck was supple and without jugular venous distension, thyromegaly, or carotid bruits. Carotids were easily palpable bilaterally. There was no adenopathy. Lungs sounds are diminished bilaterally, few bibasilar crackles Heart sounds irregular irregular rhythm, positive S1-S2, no significant murmurs appreciated. Abdominal exam revealed normal bowel sounds. The abdomen was soft, non-tender, and without masses, organomegaly, or appreciable enlargement of the abdominal aorta. The patient has a PD catheter which is in place and there is no direct tenderness Extremities revealed no edema. Pulses in lower extremities are markedly diminished. The patient has necrotic digits at the tips of the digits involving the third mid finger on the left and the fourth finger on the right. There is evidence of dry gangrene. No evidence of any wound infection. The area is pretty much black and necrotic. No lower extremities edema. No cyanosis. Neurologic : Opens eyes, lethargic on today's exam, drifting back to sleep, not providing verbal responses, still confused as to place and time - Labs CBC & Chem 7: 09/07/17 04:45 09/07/17 04:45 Labs: Abnormal Lab Results - Last 24 Hours (Table) 09/06/17 09/06/17 09/07/17 Range/Units 12:42 18:12 01:02 WBC (3.8-10.6) k/uL RBC (3.80-5.40) m/uL Hgb (11.4-16.0) gm/dL Hct (34.0-46.0) % Sodium (137-145) mmol/L Chloride (98-107) mmol/L BUN (7-17) mg/dL Creatinine (0.52-1.04) mg/dL Glucose (74-99) mg/dL POC Glucose (mg/dL) 154 H 189 H 118 H (75-99) mg/dL Calcium (8.4-10.2) mg/dL Crossmatch 09/07/17 09/07/17 09/07/17 Range/Units 04:45 04:45 05:57 WBC 14.9 H (3.8-10.6) k/uL RBC 2.29 L (3.80-5.40) m/uL Hgb 6.7 L* (11.4-16.0) gm/dL Hct 21.5 L (34.0-46.0) % Sodium 135 L (137-145) mmol/L Chloride 97 L (98-107) mmol/L BUN 39 H (7-17) mg/dL Creatinine 3.50 H (0.52-1.04) mg/dL Glucose 146 H (74-99) mg/dL POC Glucose (mg/dL) 171 H (75-99) mg/dL Calcium 6.9 L (8.4-10.2) mg/dL Crossmatch 09/07/17 Range/Units 07:23 WBC (3.8-10.6) k/uL RBC (3.80-5.40) m/uL Hgb (11.4-16.0) gm/dL Hct (34.0-46.0) % Sodium (137-145) mmol/L Chloride (98-107) mmol/L BUN (7-17) mg/dL Creatinine (0.52-1.04) mg/dL Glucose (74-99) mg/dL POC Glucose (mg/dL) (75-99) mg/dL Calcium (8.4-10.2) mg/dL Crossmatch See Detail Assessment and Plan Plan: Assessment: 1 acute hypoxic respiratory failure, multifactorial, The patient has a component of fluid overload and pulmonary vessel congestion small bilateral pleural effusion. The severe metabolic acidosis has resolved. 2 acute hypotension , resolved, and off norepinephrine today. 3 acute non-STEMI [place] troponin peaked at 7, still on a combination of aspirin, IV heparin has been discontinued 4 coronary artery disease with previous coronary artery bypass surgery 5 End stage renal disease on hemodialysis via peritoneal dialysis. The patient has been on PD since November 2016. 6 acute hyperkalemia secondary to severe metabolic acidosis, resolved 7 severe anion gap metabolic acidosis, resolved 8 history of obesity status post gastric bypass surgery 9 diabetes mellitus recovered following bariatric surgery and the patient is currently on no diabetic medications 10 hypertension, history of 11 hypothyroidism, chemically still hypothyroid with a TSH of more than 100 and a free T4 of 0.74 and the patient will be kept on IV Synthroid. 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 15 seeking kidney transplantation at [facility] 16 chronic anemia, normocytic 17 hypoproteinemia and hypoalbuminemia 18 hypothermia, recovered 19 severe peripheral vascular disease 20 acute abdominal sepsis the peritoneal fluid is positive for Enterococcus faecalis, vancomycin susceptible. Remains on vancomycin, presently off Merrem Recommendation: We will increase the midodrine to 10 mg 3 times daily, we will wean levofed. CODE STATUS discussion was held with the patient's legal guardian who is her daughter, and the patient's daughter stated in case the patient deteriorated short term life-support would be acceptable, however patient would never want to be trached or to be on life support indefinitely. Continue with current antibiotic coverage for enterococcus faecalis in the peritoneal fluid. Maintain aspiration precautions, patient did pass her modified barium swallow, however requires close monitoring and assistance with meals. We'll remaining ICU today I performed a history & physical examination of the patient and discussed their management with my nurse practitioner, Tracy Landers. I reviewed the nurse practitioner's note and agree with the documented findings and plan of care. Lung sounds are diminished with bibasilar crackles. The findings and the impression was discussed with the patient. I attest to the documentation by the nurse practitioner. Time with Patient: Greater than 30
[2017-09-07] MEDS: LEVOTHYROXINE IVP 100 MCG/5 ML VIAL IV SCH (09:09)
[2017-09-07] MEDS: SEVELAMER 800 MG TAB PO SCH ×3 (09:09→17:35)
[2017-09-07] MEDS: HEPARIN SODIUM,PORCINE 5,000 UNIT/ML 1 ML VIAL SQ SCH ×2 (09:09→21:57)
[2017-09-07] MEDS: MIDODRINE 5 MG TAB PO SCH ×3 (09:10→17:35)
[2017-09-07] MEDS: PANTOPRAZOLE 40 MG/10 ML VIAL IVP SCH (09:10)
[2017-09-07] MEDS: ASPIRIN 325 MG TAB PO SCH (09:19)
[2017-09-07] MEDS: METOPROLOL TARTRATE 12.5 MG TAB PO SCH (09:36)
[2017-09-07] MEDS: IPRATROPIUM-ALBUTEROL 3 ML NEB INHALATION SCH ×4 (09:36→19:58)
--- NOTE | 2017-09-07 10:36 | XR ---
EXAMINATION TYPE: XR chest 1V portable DATE OF EXAM: 09/07/2017 COMPARISON: Prior chest 09/06/2017 HISTORY: Shortness of breath TECHNIQUE: Single frontal view of the chest is obtained. FINDINGS: Patient is post median sternotomy. Patient is rotated, heart size is likely stable. Inters titium is increased. No evident pneumothorax or pleural effusion. There are overlying cardiac leads. IMPRESSION: Correlate for pulmonary venous hypertension and interstitial edema, follow-up recommende d.
[2017-09-07] MEDS: POTASSIUM CHLORIDE 20 MEQ in WATER FOR INJECTION 1 100ML.BAG IVPB SCH ×2 (10:52→13:02)
[2017-09-07] MEDS: SODIUM CHLORIDE 0.9% 1,000 ML IV SCH ×4 (10:52→22:33)
[2017-09-07] MEDS: ACETAMINOPHEN IV (For NPO) 1,000 MG in EMPTY BAG 1 BAG IVPB PRN (11:52)
[2017-09-07] MEDS ORDERED: ONDANSETRON 4 MG/2 ML VIAL IVP PRN (12:03)
[2017-09-07 12:06] LABS: Glucose,Whole Blood 130 mg/dL (75-99)
--- NOTE | 2017-09-07 15:52 | PN ---
PROGRESS NOTE The patient is seen for followup for end-stage renal disease. She is currently maintained on 1.5% solution q.6 hours. The patient's volume status is improved significantly, although she may be slightly on the hypovolemic side. She is maintained on a small dose of Levophed. The patient's hemoglobin had dropped to 6.7, and she is receiving 1 unit packed RBCs. The patient passed a swallowing eval yesterday. EXAMINATION: Today blood pressure is 104/50, heart rate 97 per minute. She is afebrile. Examination of the heart S1, S2. Examination of the lungs, good air entry bilaterally. Decreased breath sounds at bases. ABDOMEN: Soft. There is an area of mild erythema noted in the right lower abdomen. There is no drainage from the exit site and there is no significant hardness noted. Examination of the lower extremity shows no edema. There is gangrenous changes, which is mainly dry gangrene noted on the heel of the left foot. There is also gangrenous changes in the right middle finger and 2 fingers on the left hand. PLASTICS TECHNICIAN exam shows patient is moving all 4 extremities. LABS: Show sodium 135, potassium 3.6, hemoglobin 6.7 g/dL. ASSESSMENT: 1. End-stage renal disease, on peritoneal dialysis. Continue current PD exchanges. 2. Volume overload, currently significantly improved. If the blood pressure remains low, we can also start a small amount of IV fluids as there is absolutely no edema noted at this time. 3. Anemia with no active bleeding noted, being transfused 1 unit packed RBCs. Maintained on Aranesp. 4. Respiratory failure, status post extubation. 5. Hypocalcemia, now resolved, slightly improved. PLAN: Continue current PD exchanges. Repeat labs in a.m.. MMODL / IJN: [id number] /
--- NOTE | 2017-09-07 16:13 | P.PN ---
Subjective 65-year-old the being treated for acute respiratory failure secondary to sepsis source unclear possibly lower limb ulcerations or peritonitis. Patient remains intubated patient is presently on 40% FiO2 PEEP of 5 and tidal volume of 500 continues to have metabolic acidosis which improved compared to yesterday. Patient is undergoing peritoneal dialysis remains on epinephrine, propofol drip , IV heparin for possible non-ST elevation myocardial infarction, on antibiotics meropenem and vancomycin with the so for negative cultures, very minimal urine output, hypotension improved, possibility of a superimposed cardiac sharp with bilateral pleural effusions 08/29/2017 Patient is off sedation undergoing weaning trials, on 1 g of epinephrine. Patient is awake and arousable intubated on BiPAP through ventilator 08/30/17 reintubated last night with FiO2 at 70%/+8 of PEEP. Chest x-ray reporting increasing lung opacity's, worsening edema and or infiltrates. Maintained on DIprova, heparin and Levophed drips. Troponin up to 9.5. Minimal urine output. Peritoneal dialysis cultures reporting enterococcus. Potential hemodialysis being discussed. Telemetry sinus rhythm. 08/31/17 remains vent dependent. CXR and ABGs improving. FiO2 decreased to 50% and PEEP decreased down to 5%. No weaning trials, yet. Tube feedings being initiated. Bicarb 22. PD changed to every 4 hours with solution adjusted as per nephrology. Levophed down to 7 mics. Maintained on Merrem and vancomycin, peritoneal cultures positive for enterococcus D, final results pending. 09/01/17 continues on antibiotics for enterococcus faecalis peritonitis. remains vent dependent, FiO2 decreased to 40%/+5 of PEEP. ABGs improved. Maintain on heparin, diprovan and Levophed drips. Prior chest ultrasound reported bilateral pleural effusions greater on the left with largest pocket 8.3 cm. Chest x-ray reporting bilateral consolidation, pleural effusions, small amount of subcutaneous emphysema along right lateral chest wall. Chest ultrasound repeated with both left and right-sided marked for possible thoracentesis. Paroximal A. fib, currently sinus rhythm. Pulmonary discussing possible weaning parameters. Tube feeds at goal with minimal to no residuals. 09/02/2017 Patient remained on mechanical ventilator. Changed to per support and is starting to wean off from in today. Patient is able to open her eyes and could not follow any commands. Chest x-ray showed improvement in left pleural effusion. Pulmonary is now planning for thoracentesis at this time. Patient is off pressors support. Patient is being continued on vancomycin for enterococcus fecaliths in the peritoneal fluid. Meropenem has been discontinued. Pulmonary and ID is following. 09/03/2017 Patient was extubated today. Otherwise still confused but able to move her extremities. Could not able to communicate at this time. Patient is generally weak and unable to tolerate oral diet and currently on nothing by mouth. Chest x-ray showed improvement. Patient is being continued on antibiotics otherwise. Peritoneal dialysis every 6 hourly. 09/04/2017 Patient is extubated and is oxygenating well on nausea cannula. Mental status otherwise system confused and could not able to speak at this time. Patient is able to open her eyes and follow simple commands. CT head was done showed no acute intracranial process. No change from prior study Chest x-ray showed right basilar opacity and could represent atelectasis or pneumonia. Neurology was consulted for further evaluation. WBC 14, BUN 51 creatinine 3.29 Discussed with the family at bedside. 09/05/2017 Patient is currently saturating well on nasal cannula. Patient was started back on low-dose Levophed today. Otherwise mental status slightly improved and is able to talk single words occasionally. Patient seems more oriented today. Neurology has seen the patient. Repeat CT head was ordered. Swallowing evaluation tomorrow. No fever no chills. Patient is being continued on antibiotics and parenteral dialysis as scheduled. 09/06/2017 Patient is awake and more oriented today. Able to communicate slowly. Otherwise patient did well with swallow study. Patient is off pressors support. Anticipate starting on oral diet tomorrow. No fever no chills. Saturating well on nasal cannula. Leukocytosis improving to 15.9 complaints of chest pain or worsening shortness of breath. No nausea vomiting or abdominal pain. 09/07/2017 Patient is on low-dose pressor support today. Patient has enterococcus in the peritoneal fluid patient remains on broad-spectrum antibiotics. Objective - Vital Signs Vital signs: Vital Signs Temp 98.0 F 09/07/17 16:00 Pulse 89 09/07/17 16:00 Resp 12 09/07/17 16:00 BP 108/51 09/07/17 13:00 Pulse Ox 98 09/07/17 16:00 Intake & Output 09/06/17 09/07/17 09/07/17 18:59 06:59 18:59 Intake Total 652 161 4794.257 Output Total 125 125 Balance 478 407 7511.257 Weight 62 kg 62.5 kg Intake: IV 390 330 480 ACETAMINOPHEN IV (For NPO 100 ) 1,000 mg In Empty Bag 1 bag @ 400 mls/hr IVPB Q6HR PRN Rx#:[id number] Potassium Chloride 20 meq 200 In Water For Injection 1 100ml.bag @ 50 mls/hr IVPB Q2H ALEXANDRA Rx#: [id number] Sodium Chloride 0.9% 1, 390 330 180 000 ml @ 30 mls/hr IV . Q24H ALEXANDRA Rx#:[id number] Intake, IV Titration 42.257 Amount Norepinephrin 16 mg-0.9% 42.257 Ns Pmx 16 mg In 250 ml @ Titrate IV .Q0M ALEXANDRA Rx#: [id number] Oral 120 Blood Product 660 Rc As-1 Unit 310 [id number] Output: Urine 125 125 Other: Voiding Method Indwelling Catheter Indwelling Catheter ABP, PAP, CO, CI - Last Documented Arterial Blood Pressure 96/41 - Exam GENERAL: Patient awake alert and oriented. Able to communicate slowly. HEENT: Pupils are round and equally reacting to light. EOMI. No scleral icterus. No conjunctival pallor. Normocephalic, atraumatic. No pharyngeal erythema. No thyromegaly. CARDIOVASCULAR: S1 and S2 present. No murmurs, rubs, or gallops. Tachycardic PULMONARY: Good air entry treatment with mechanical ventilator . Scattered rhonchi and bibasilar crackles are appreciated ABDOMEN: Soft, nontender, nondistended, normoactive bowel sounds. No palpable organomegaly. PD catheter present. MUSCULOSKELETAL: No joint swelling or deformity. EXTREMITIES: Multiple ulcerations in bilateral lower limbs and wounds please refer to nursing documentation for further details, markedly diminished bilateral dorsalis pedis pulses. Toes of bilateral feet dark purple. Black, Necrotic digits on bilateral hands involving right fourth finger and left third and fourth fingers.Stage II Right Buttock-nondraining. NEUROLOGICAL: No focal deficits noted. Patient does have generalized weakness. SKIN: No lesions. No rashes. - Labs CBC & Chem 7: 09/07/17 04:45 09/07/17 04:45 Labs: Abnormal Lab Results - Last 24 Hours (Table) 09/06/17 09/07/17 09/07/17 Range/Units 18:12 01:02 04:45 WBC 14.9 H (3.8-10.6) k/uL RBC 2.29 L (3.80-5.40) m/uL Hgb 6.7 L* (11.4-16.0) gm/dL Hct 21.5 L (34.0-46.0) % Sodium (137-145) mmol/L Chloride (98-107) mmol/L BUN (7-17) mg/dL Creatinine (0.52-1.04) mg/dL Glucose (74-99) mg/dL POC Glucose (mg/dL) 189 H 118 H (75-99) mg/dL Calcium (8.4-10.2) mg/dL Crossmatch 09/07/17 09/07/17 09/07/17 Range/Units 04:45 05:57 07:23 WBC (3.8-10.6) k/uL RBC (3.80-5.40) m/uL Hgb (11.4-16.0) gm/dL Hct (34.0-46.0) % Sodium 135 L (137-145) mmol/L Chloride 97 L (98-107) mmol/L BUN 39 H (7-17) mg/dL Creatinine 3.50 H (0.52-1.04) mg/dL Glucose 146 H (74-99) mg/dL POC Glucose (mg/dL) 171 H (75-99) mg/dL Calcium 6.9 L (8.4-10.2) mg/dL Crossmatch See Detail 09/07/17 Range/Units 11:56 WBC (3.8-10.6) k/uL RBC (3.80-5.40) m/uL Hgb (11.4-16.0) gm/dL Hct (34.0-46.0) % Sodium (137-145) mmol/L Chloride (98-107) mmol/L BUN (7-17) mg/dL Creatinine (0.52-1.04) mg/dL Glucose (74-99) mg/dL POC Glucose (mg/dL) 130 H (75-99) mg/dL Calcium (8.4-10.2) mg/dL Crossmatch Assessment and Plan Plan: -Acute metabolic ENCEPHALOPATHY. CT head negative.. Improving clinically. -Acute abdominal sepsis secondary to peritonitis with enterococcus fecalis., possibly related to PD catheter-though initial white count 170 with repeat PD fluid cell count 35, peritoneal fluid positive for enterococcus faecialis. -Septic shock with possibility of cardiogenic shock secondary to acute NSTEMI. Severe cardiomyopathy ejection fraction of around 25%. Shock improved but still remains on low-dose of pressors -Acute hypotension secondary to the above. -Acute Hypoxic respiratory failure, mechanical ventilator-dependent, re- intubated. Currently extubated. 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 Her hemoglobin today was 6.7 -Bilateral pleural effusions, potential thoracentesis.
[2017-09-07 17:30] LABS: Basophils % (A) 0 %; Eosinophils # (A) 0.3 k/uL (0-0.7); Eosinophils % (A) 2 %; HCT 27.5 % (34.0-46.0); HGB 8.7 gm/dL (11.4-16.0); Hypochromasia Slight; Lymphocytes % (A) 12 %; MCH 29.3 pg (25.0-35.0); MCHC 31.7 g/dL (31.0-37.0); MCV 92.4 fL (80.0-100.0); Mean Platelet Volume 7.8; Monocytes # (A) 0.6 k/uL (0-1.0); Monocytes % (A) 3 %; Neutrophils # (A) 13.2 k/uL (1.3-7.7); Neutrophils % (A) 81 %; Platelet Count 287 k/uL (150-450); Poikilocytosis Slight; RBC 2.97 m/uL (3.80-5.40); RDW 14.5 % (11.5-15.5); WBC 16.4 k/uL (3.8-10.6)
[2017-09-07 17:35] LABS: Glucose,Whole Blood 113 mg/dL (75-99)
[2017-09-07] MEDS: ACETAMINOPHEN TAB 325 MG TAB PO PRN (17:36)
[2017-09-07] MEDS: HYDROmorphone 0.5 MG/0.5 ML SYRINGE IVP PRN (19:34)
--- NOTE | 2017-09-07 19:55 | P.PN ---
Subjective Progress Note Date: 09/07/17 67-year-old female presented visit care unit where she was intubated sedated and mechanically ventilated receiving her CAPD. Is related from the available data that she receives her to [facility] and has been cared for in [facility] in [place] where she's been evaluated for renal transplantation from a living related donor, her daughter. The patient has a long-standing history of diabetes mellitus type 2 and has end- stage renal disease related to this and normally is cared for with. Dialysis via the nighttime cycler, and has been doing this well in November 2016. Patient has known severe peripheral vascular disease and did apparently have a left upper extremity AV fistula that was placed however did not function well and with the what appears to be steal syndrome is without evidence the dry gangrenous third and fourth fingers of the left hand. Is also developed a dry gangrenous changes to the right hand middle finger also. consider gastric bypass she remains with severe obesity although apparently it has improved and she has underlying cardiovascular disease and severe peripheral vascular disease. the patient has evidence of a peritoneal dialysis sample with evidence of enterococcus and with at the infectious diseases consultation was requested. 08/31/2017 patient remains in intensive care unit intubated sedated and mechanically ventilated with decreasing doses of vasopressor therapy, epinephrine has been discontinued. The patient has been tolerating her CAPD well and is now getting into some negative balance. Nephrology has evaluated is holding on hemodialysis as long as CAPD continues to be effective. Laboratory has finalize the culture as enterococcus, not VRE, from the peritoneal fluid. Blood culture negative so far sputum culture is pending. 09/01/2017 patient is had some further improvement. Her sedation is being held with contemplation for further weaning tomorrow. She's not having fever. Vasopressor therapy has been weaned. The peritoneal dialysis is allowing some improvement of her volume overload and her creatinine is improving 09/02/2017 there is been some further improvement today. She has been weaned off of sedatives and is having some response to her name and did follow command earlier. She is in a weaning trial seems doing relatively well. Appear to dialysis is continuing to allow a negative fluid balance which will put will further help her respiratory status. No other positive cultures are noted except for the enterococcus of the peritoneal fluid. 09/03/2017 the patient is extubated. She is a bit more interactive. CAPD continues to have affected negative fluid balance. 09/06/2017 the patient has been extubated and is able to communicate. Her cognitive abilities seem to be quite diminished, in that simple questions are answered but then makes very little sense answering some other more complex questions. She denies pain at this time. She also denied being short of breath. 09/07/2017 the patient is awake alert is able to answer a few questions but does have significant bizarre behavior still at this time. She seems to be comfortable but does call out at times. Nursing does not relate any other acute changes today. Objective - Vital Signs Vital signs: Vital Signs Temp 97.8 F 09/07/17 18:44 Pulse 94 09/07/17 19:00 Resp 16 09/07/17 19:00 BP 88/56 09/07/17 19:00 Pulse Ox 95 09/07/17 19:00 Intake & Output 09/07/17 09/07/17 09/08/17 06:59 18:59 06:59 Intake Total 330 1642.257 50 Output Total 125 Balance 205 1642.257 50 Weight 62.5 kg Intake: IV 330 580 50 ACETAMINOPHEN IV (For NPO 100 ) 1,000 mg In Empty Bag 1 bag @ 400 mls/hr IVPB Q6HR PRN Rx#:[id number] Potassium Chloride 20 meq 200 In Water For Injection 1 100ml.bag @ 50 mls/hr IVPB Q2H ALEXANDRA Rx#: [id number] Sodium Chloride 0.9% 1, 330 280 50 000 ml @ 50 mls/hr IV . Q20H ALEXANDRA Rx#:[id number] Intake, IV Titration 42.257 0 Amount Norepinephrin 16 mg-0.9% 42.257 0 Ns Pmx 16 mg In 250 ml @ Titrate IV .Q0M ALEXANDRA Rx#: [id number] Oral 360 Blood Product 660 Rc As-1 Unit 310 [id number] Output: Urine 125 Other: Voiding Method Indwelling Catheter ABP, PAP, CO, CI - Last Documented Arterial Blood Pressure 89/41 - Exam 67-year-old female who appears older than her stated age, she is now extubated and seems comfortable HEENT: Anicteric conjunctiva are pink and moist nasal mucosa grossly intact without significant lesions, there is no thrush.poor dentition Neck: The neck is supple without significant lymphadenopathy or thyromegaly. Lungs: there is symmetrical air entry with expiratory wheezes that are scattered no herber bronchial sounds are heard Heart: irregular with audible S1 and S2 soft S4 no distinct murmur click or rub PMI was nondisplaced with urethral Abdomen: Positive bowel sounds soft nonrigid without palpable masses or organomegaly. Extremities: the right upper extremities shows evidence of the third finger distal mummification, similar has occurred third finger to the left hand. The lower extremities are cool but not frankly cold the significant open ulcerations on the right lateral foot without change and are dry. Neuro: She verbally answers to her name. She answers simple questions occasionally appropriately. But when asking how she feels today is not able to answer. - Labs CBC & Chem 7: 09/07/17 15:40 09/07/17 04:45 Labs: Abnormal Lab Results - Last 24 Hours (Table) 09/07/17 09/07/17 09/07/17 Range/Units 01:02 04:45 04:45 WBC 14.9 H (3.8-10.6) k/uL RBC 2.29 L (3.80-5.40) m/uL Hgb 6.7 L* (11.4-16.0) gm/dL Hct 21.5 L (34.0-46.0) % Neutrophils # (1.3-7.7) k/uL Sodium 135 L (137-145) mmol/L Chloride 97 L (98-107) mmol/L BUN 39 H (7-17) mg/dL Creatinine 3.50 H (0.52-1.04) mg/dL Glucose 146 H (74-99) mg/dL POC Glucose (mg/dL) 118 H (75-99) mg/dL Calcium 6.9 L (8.4-10.2) mg/dL Crossmatch 09/07/17 09/07/17 09/07/17 Range/Units 05:57 07:23 11:56 WBC (3.8-10.6) k/uL RBC (3.80-5.40) m/uL Hgb (11.4-16.0) gm/dL Hct (34.0-46.0) % Neutrophils # (1.3-7.7) k/uL Sodium (137-145) mmol/L Chloride (98-107) mmol/L BUN (7-17) mg/dL Creatinine (0.52-1.04) mg/dL Glucose (74-99) mg/dL POC Glucose (mg/dL) 171 H 130 H (75-99) mg/dL Calcium (8.4-10.2) mg/dL Crossmatch See Detail 09/07/17 09/07/17 Range/Units 15:40 17:33 WBC 16.4 H (3.8-10.6) k/uL RBC 2.97 L (3.80-5.40) m/uL Hgb 8.7 L D (11.4-16.0) gm/dL Hct 27.5 L (34.0-46.0) % Neutrophils # 13.2 H (1.3-7.7) k/uL Sodium (137-145) mmol/L Chloride (98-107) mmol/L BUN (7-17) mg/dL Creatinine (0.52-1.04) mg/dL Glucose (74-99) mg/dL POC Glucose (mg/dL) 113 H (75-99) mg/dL Calcium (8.4-10.2) mg/dL Crossmatch Laboratory Results WBC 16.4 k/uL (3.8-10.6) H 09/07/17 15:40 RBC 2.97 m/uL (3.80-5.40) L 09/07/17 15:40 Hgb 8.7 gm/dL (11.4-16.0) L D 09/07/17 15:40 Hct 27.5 % (34.0-46.0) L 09/07/17 15:40 MCV 92.4 fL (80.0-100.0) 09/07/17 15:40 MCH 29.3 pg (25.0-35.0) 09/07/17 15:40 MCHC 31.7 g/dL (31.0-37.0) 09/07/17 15:40 RDW 14.5 % (11.5-15.5) 09/07/17 15:40 Plt Count 287 k/uL (150-450) 09/07/17 15:40 Neutrophils % 81 % 09/07/17 15:40 Lymphocytes % 12 % 09/07/17 15:40 Monocytes % 3 % 09/07/17 15:40 Eosinophils % 2 % 09/07/17 15:40 Basophils % 0 % 09/07/17 15:40 Neutrophils # 13.2 k/uL (1.3-7.7) H 09/07/17 15:40 Lymphocytes # 2.0 k/uL (1.0-4.8) 09/07/17 15:40 Monocytes # 0.6 k/uL (0-1.0) 09/07/17 15:40 Eosinophils # 0.3 k/uL (0-0.7) 09/07/17 15:40 Basophils # 0.0 k/uL (0-0.2) 09/07/17 15:40 Hypochromasia Slight 09/07/17 15:40 Poikilocytosis Slight 09/07/17 15:40 Anisocytosis Slight 08/28/17 04:00 PT 13.7 sec (9.0-12.0) H 08/28/17 04:00 INR 1.5 (<1.2) H 08/28/17 04:00 APTT 44.0 sec (22.0-30.0) H 09/02/17 04:00 D-Dimer 5.03 mg/L FEU (<0.60) H 08/27/17 04:44 Sample Site Skye 09/03/17 07:22 ABG pH 7.50 (7.35-7.45) H 09/03/17 07:22 ABG pCO2 34 mmHg (35-45) L 09/03/17 07:22 ABG pO2 151 mmHg (83-108) H 09/03/17 07:22 ABG HCO3 26 mmol/L (21-25) H 09/03/17 07:22 ABG Total CO2 27 mmol/L (19-24) H 09/03/17 07:22 ABG O2 Saturation 98.4 % (94-97) H 09/03/17 07:22 ABG Base Excess 3.1 mmol/L 09/03/17 07:22 Rhett Test No 09/03/17 07:22 ABG Lactic Acid 4.2 mmol/L (0.5-1.6) H* 08/27/17 16:01 FiO2 40 % 09/03/17 07:22 Sodium 135 mmol/L (137-145) L 09/07/17 04:45 Potassium 3.6 mmol/L (3.5-5.1) 09/07/17 04:45 Chloride 97 mmol/L (98-107) L 09/07/17 04:45 Carbon Dioxide 25 mmol/L (22-30) 09/07/17 04:45 Anion Gap 13 mmol/L 09/07/17 04:45 BUN 39 mg/dL (7-17) H 09/07/17 04:45 Creatinine 3.50 mg/dL (0.52-1.04) H 09/07/17 04:45 Est GFR (CKD-EPI)AfAm 15 (>60 ml/min/1.73 sqM) 09/07/17 04:45 Est GFR (CKD-EPI)NonAf 13 (>60 ml/min/1.73 sqM) 09/07/17 04:45 Glucose 146 mg/dL (74-99) H 09/07/17 04:45 POC Glucose (mg/dL) 113 mg/dL (75-99) H 09/07/17 17:33 POC Glu Vessel Scrapper Helper Natasha Hernandez 09/07/17 17:[address] Glu mg/dL 103 08/27/17 10:35 Hemoglobin A1c 5.2 % (4.0-6.0) 08/27/17 10:35 Lactic Ac Sepsis Rflx Y 08/27/17 11:19 Plasma Lactic Acid Kana mmol/L (0.7-2.0) 08/27/17 10:35 Calcium 6.9 mg/dL (8.4-10.2) L 09/07/17 04:45 Ionized Calcium Karlo 3.5 mg/dL (4.5-5.3) L* 09/02/17 06:00 Phosphorus 6.3 mg/dL (2.5-4.5) H 09/06/17 04:45 Magnesium 1.7 mg/dL (1.6-2.3) 09/07/17 04:45 Total Bilirubin 0.2 mg/dL (0.2-1.3) 09/06/17 04:45 AST 50 U/L (14-36) H 09/06/17 04:45 ALT 39 U/L (9-52) 09/06/17 04:45 Alkaline Phosphatase 131 U/L (38-126) H 09/06/17 04:45 Total Creatine Kinase 292 U/L (30-135) H 08/30/17 04:00 CK-MB (CK-2) 9.5 ng/mL (0.0-2.4) H* 08/30/17 04:00 CK-MB (CK-2) Rel Index 3.3 08/30/17 04:00 Troponin I 9.540 ng/mL (0.000-0.034) H* 08/30/17 04:00 Total Protein 4.3 g/dL (6.3-8.2) L 09/06/17 04:45 Albumin 1.8 g/dL (3.5-5.0) L 09/06/17 04:45 Triglycerides 62 mg/dL (<150) 08/28/17 04:00 Cholesterol 104 mg/dL (<200) 08/28/17 04:00 LDL Cholesterol, Calc 41 mg/dL (0-99) 08/28/17 04:00 HDL Cholesterol 51 mg/dL (40-60) 08/28/17 04:00 TSH >100.000 mIU/L (0.465-4.680) H 08/27/17 10:35 Free T4 0.74 ng/dL (0.78-2.19) L 08/27/17 10:35 Cortisol 21 ug/dL 09/07/17 04:45 Urine Color Yellow 08/27/17 20:00 Urine Appearance Cloudy (Clear) H 08/27/17 20:00 Urine pH 5.0 (5.0-8.0) 08/27/17 20:00 Ur Specific [place] 1.020 (1.001-1.035) 08/27/17 20:00 Urine Protein 1+ (Negative) H 08/27/17 20:00 Urine Glucose (UA) 3+ (Negative) H 08/27/17 20:00 Urine Ketones Negative (Negative) 08/27/17 20:00 Urine Blood Small (Negative) H 08/27/17 20:00 Urine Nitrite Negative (Negative) 08/27/17 20:00 Urine Bilirubin Negative (Negative) 08/27/17 20:00 Urine Urobilinogen <2.0 mg/dL (<2.0) 08/27/17 20:00 Ur Leukocyte Esterase Small (Negative) H 08/27/17 20:00 Urine RBC 1 /hpf (0-5) 08/27/17 20:00 Urine WBC 12 /hpf (0-5) H 08/27/17 20:00 Ur Squamous Epith Cells 11 /hpf (0-4) H 08/27/17 20:00 Amorphous Sediment Few /hpf (None) H 08/27/17 20:00 Hyaline Casts 3 /lpf (0-2) H 08/27/17 20:00 Urine Mucus Rare /hpf (None) H 08/27/17 20:00 Fluid Source Peritoneal 09/02/17 13:20 Fluid Color Colorless 09/02/17 13:20 Fluid Appearance Clear 09/02/17 13:20 Fluid RBC 13 /uL 09/02/17 13:20 Fluid Nucleated Cells 4 /uL 09/02/17 13:20 Fluid Polynuclear WBCs 81 % 08/29/17 14:09 Fluid Mononuclear WBCs 19 % 08/29/17 14:09 Random Vancomycin 25.2 ug/mL 09/06/17 04:45 C. difficile (EIA) Intrp Negative (Negative) 09/01/17 13:35 Blood Type A Positive 09/07/17 07:23 Blood Type Confirm A Positive 09/07/17 04:45 Blood Type Recheck CABO Indicated 09/07/17 07:23 Antibody Screen NEGATIVE 09/07/17 07:23 Crossmatch See Detail 09/07/17 07:23 Spec Expiration Date 09/10/2017 - 1775 09/07/17 07:23 Microbiology 08/27/17 11:00 Blood Blood Culture - Final No Growth after 144 hours 08/27/17 14:10 Peritoneal Fluid Gram Stain - Final 08/27/17 14:10 Peritoneal Fluid Body Fluid Culture - Final Enterococcus faecalis 08/30/17 03:57 Sputum Gram Stain - Final 08/30/17 03:57 Sputum Sputum Culture - Final 08/27/17 23:20 Sputum Gram Stain - Final 08/27/17 23:20 Sputum Sputum Culture - Final 08/27/17 20:00 Urine,Catheterized Urine Culture - Final Assessment and Plan (1) Respiratory failure Current Visit: Yes Status: Acute Code(s): J96.90 - RESPIRATORY FAILURE, UNSP , UNSP W HYPOXIA OR HYPERCAPNIA SNOMED Code(s): 560363358 (2) Renal failure Current Visit: Yes Status: Acute Code(s): N19 - UNSPECIFIED KIDNEY FAILURE SNOMED Code(s): 04224620 (3) Bacterial infection associated with peritoneal dialysis catheter Narrative/Plan: 67-year-old female who is in the intensive care unit she is intubated sedated and mechanically ventilated due to her significant sepsis and hypotension at this time. There is concerns that she has an enterococcal peritonitis related to her CAPD. She's been evaluated by nephrology as well as surgery. At this time antimicrobial therapy has been initiated with vancomycin. Potentially may receive vancomycin in the dialysate if nephrology believes it is a potential. Follow-up sample should be obtained to ensure that there some improvement. there is discussion about the potential for hemodialysis but she is too hypotensive at this point in time. there is no data to suggest that she has a history of VRE will continue vancomycin therapy for now. Cultures for further direct antibiotic therapy. She is receiving meropenem also for now until further data is available. significant leukocytosis occurring directly related to her peritonitis. 08/31/2017 the patient has had similar treatment. Her significant acidosis is improved and is tolerating the CAPD somewhat better actually getting some negative fluid balance. As far as the peritonitis and sepsis appears to be somewhat better today. She is requiring less vasopressor therapy. Leukocytosis remains elevated at 23.8. Of note her creatinine has come down to 4.29 from a peak of 7.9, revealing that the CAPD is showing some affective nature. At this time will continue the antibiotic therapy with vancomycin per pharmacy dosing. Meropenem is being utilize also for now pending sputum culture results, once this is clear that there is not significant gram-negative pneumonia the meropenem can be streamlined. The patient sounds are present and they are updated on her situation. The opti foam will be applied to the stage III pressure ulceration to her buttocks that is present on admission, it was unstageable at admission. 09/01/2017 patient has had some improvement. There is contemplation for further weaning trials in the morning if her mentation continues to improve. She is off vasopressor therapy and with the peritoneal dialysis her creatinine is starting to improve. We'll expect as her sepsis improves and the uremia improves her mentation should further improve. We'll continue vancomycin at this time. If other cultures remain negative we'll be able to discontinue the meropenem tomorrow. Continue treatment for the stage III pressure ulceration with the optifoam. 09/02/2017 patient continues to have some further improvement. Weaning trials are ongoing at this time. The patient seems comfortable. We'll be able to discontinue meropenem at this point in time with no other further positive cultures. The plan 10-14 days of vancomycin for the enterococcus peritonitis. Fortunately fluid is cleared and she is doing somewhat better overall. Still has somewhat of a poor prognosis. 09/03/2017 patient has been extubated and seems comfortable. Is doing well with the treatment of her enterococcus peritonitis. At this time would plan to complete 14 days total of therapy for the enterococcal peritonitis with salvage of her CAPD catheter. She seems to be doing considerably better at this time. Nutrition is going to be the next biggest difficulty until her neurological status improves. Meropenem discontinued. 09/06/2017 Patient improved but not at baseline. The peritonitis is improved. Will complete 2 weeks of vancomycin therapy for the enterococcus peritonitis. Being followed by neurology at this time for her metabolic encephalopathy. Her creatinine has improved and nephrology is following guarding the peritoneal dialysis that he has recently allowed her to have a marked improvement of her volume overload. Leukocytosis continues to improve. No evidence of any other new infections at this time. 09/07/2017 patient remained stable but has not regained her baseline mental status. The abdominal exam revealed that her peritonitis improved and the most recent evaluations of her fluid are clear with no evidence of further or persistent infection. The plan is to complete the 2 weeks of vancomycin therapy for the enterococcus peritonitis. She continues to have a significant metabolic encephalopathy and neurology is following. No other new infections have been identified. She does have the significant difficulty with the severe peripheral vascular disease the mummification of her fingers and the ulceration to the right lower extremity at the foot but none of these appear to be with a new change or new infection. Skin tear to the left arm pressure ulceration to her coccyx are all without significant change. Current Visit: Yes Status: Acute Code(s): T85.71XA - INFECT/INFLM REACTION DUE TO PERITON DIALYSIS CATHETER, INIT; A49.9 - BACTERIAL INFECTION, UNSPECIFIED SNOMED Code(s): 006417362
[2017-09-07 21:51] LABS: Glucose,Whole Blood 166 mg/dL (75-99)
[2017-09-08] MEDS ORDERED: DIALYSIS (PERIT 2.5%) 2,000 ML 50 G/2,000 ML BAG INTRAPERIT ONE
[2017-09-08] MEDS: DIALYSIS (PERIT 1.5%) 2,000 ML 30 G/2,000 ML BAG INTRAPERIT SCH ×4 (00:06→18:04)
[2017-09-08 04:49] LABS: Basophils # (A) 0.1 k/uL (0-0.2); Basophils % (A) 0 %; Eosinophils # (A) 0.4 k/uL (0-0.7); Eosinophils % (A) 3 %; HCT 26.2 % (34.0-46.0); HGB 8.3 gm/dL (11.4-16.0); Lymphocytes # (A) 1.9 k/uL (1.0-4.8); Lymphocytes % (A) 11 %; MCH 28.8 pg (25.0-35.0); MCHC 31.7 g/dL (31.0-37.0); MCV 90.7 fL (80.0-100.0); Mean Platelet Volume 7.2; Monocytes # (A) 0.5 k/uL (0-1.0); Monocytes % (A) 3 %; Neutrophils # (A) 13.9 k/uL (1.3-7.7); Neutrophils % (A) 82 %; Platelet Count 326 k/uL (150-450); Poikilocytosis Slight; RBC 2.88 m/uL (3.80-5.40); RDW 14.3 % (11.5-15.5)
[2017-09-08 05:05] LABS: Calcium 6.9 mg/dL (8.4-10.2); Magnesium 1.6 mg/dL (1.6-2.3); Phosphorus 6.2 mg/dL (2.5-4.5); Potassium 3.8 mmol/L (3.5-5.1)
[2017-09-08 05:10] LABS: Vancomycin,Random 19.8 ug/mL
[2017-09-08] MEDS: HYDROmorphone 0.5 MG/0.5 ML SYRINGE IVP PRN ×4 (05:46→18:02)
[2017-09-08] MEDS: LEVOTHYROXINE IVP 100 MCG/5 ML VIAL IV SCH (07:44)
[2017-09-08] MEDS: SEVELAMER 800 MG TAB PO SCH ×3 (07:44→18:04)
[2017-09-08] MEDS: HEPARIN SODIUM,PORCINE 5,000 UNIT/ML 1 ML VIAL SQ SCH ×2 (07:44→21:17)
[2017-09-08] MEDS: MIDODRINE 5 MG TAB PO SCH ×4 (07:44→18:03)
[2017-09-08] MEDS: ASPIRIN 325 MG TAB PO SCH (07:44)
[2017-09-08] MEDS: SODIUM CHLORIDE 0.9% 1,000 ML IV SCH (07:45)
[2017-09-08] MEDS: PANTOPRAZOLE 40 MG/10 ML VIAL IVP SCH (07:45)
[2017-09-08] MEDS: METOPROLOL TARTRATE 12.5 MG TAB PO SCH (07:45)
[2017-09-08 08:02] LABS: Glucose,Whole Blood 177 mg/dL (75-99)
[2017-09-08] MEDS: INSULIN ASPART 100 UNIT/ML 1 ML 10 ML VIAL SQ SCH ×4 (08:03→21:03)
[2017-09-08] MEDS: ASPIRIN 300 MG SUPP RECTAL SCH (08:04)
[2017-09-08] MEDS: IPRATROPIUM-ALBUTEROL 3 ML NEB INHALATION SCH ×4 (08:29→19:56)
--- NOTE | 2017-09-08 08:50 | P.PN ---
Subjective Progress Note Date: 09/08/17 Principal diagnosis: Acute hypoxic respiratory failure secondary to congestive heart failure, systolic in nature, abdominal sepsis secondary to Enterococcus faecalis Acute hypoxic respiratory failure secondary to congestive heart failure, systolic in nature, abdominal sepsis. Secondary to enterococcus faecalis This is a 67-year-old female patient with multiple medical problems and comorbidities who presented to ED with acute respiratory distress, intubated and placed on a mechanical ventilator and then moved to the intensive care unit. The patient has taken all of her care at [facility]. She has chronic renal failure and she currently has end stage renal disease and she is seeking kidney transportation the patient has been evaluated at [facility] for potential kidney transplant the daughter being her daughter. This patient lives in [place] and she recently moved in with her daughter living in [facility], and for that reason during this current episode the patient was brought in to our hospital. All of the information was obtained is from the daughters at the bedside This patient has developed renal failure, probably related to previous history of diabetes mellitus. She was started on peritoneal dialysis approximately year ago and she does nighttime cycler continuous with a 1.5 fluid exchange. This was started on high-dose in November 2016. Hemodialysis was considered and the patient was about to have a left upper extremity AV fistula. The fistula itself got clotted and the patient developed also ulceration in her digits bilaterally and for that reason this was not pursued. Currently the patient is gangrenous necrotic digits of the middle fingers of the left and the fourth finger on the right, affecting the tips. This was investigated at length at [facility]. The patient underwent a CT angios of the entire chest abdomen pelvis and extremities and she was found to have no significant subclavian axillary or brachial artery narrowing. She was found to have diffuse atherosclerosis with calcification of the bilateral radial and ulnar arteries and mild to moderate narrowing in the areas affecting the wrist. Atherosclerotic changes were also seen in the infrarenal abdominal aortic area which was estimated to be severe. Bilateral iliofemoral atherosclerotic changes were also seen. The patient was told to have small vessel disease and based on the reported history there was no evidence of any embolic phenomena or vasculitis The patient is known to have coronary artery disease and she has undergone pleased bypass surgery. She was morbidly obese and she was diabetic. She has undergone gastric bypass surgery more than 6 years ago and she has lost considerable amount of weight and during this time the patient was taken off as soon as she improved in terms of her blood sugar control and she started having episodes of hypoglycemia. Currently she is off anticoagulation. She also has chronic atrial fibrillation, chronic renal failure and currently she is on peritoneal dialysis, she hasn't complications of hyperkalemia, and she has history of hypertension, hyperlipidemia, hypothyroidism, peripheral vascular disease and previous history of coronary artery disease and myocardial infarction. The patient was at her daughter's home where she was feeling weak. In the tree farmer hours the patient was found by the daughter collapsed in the bathroom. No reported chest pain or palpitations. No focal neurological deficit. The patient was lethargic and she was arousable and she was able to speak. She was moving all 4 extremities according to the history. No fever. No chills. No cough or sputum production. No nausea, vomiting or abdominal pain. The PD catheter was apparently functional. No skin rashes. Necrotic digits were seen bilaterally and these are dry gangrene. In the ED, the patient was found to be hypotensive postintubation. The patient was started on IV fluids and pressors. The patient was started on epinephrine infusion. She was intubated and blood gas showed severe metabolic acidosis. The chest x-ray shows cardiomegaly and pulmonary vessel congestion. ET tube was in a good location. No consolidation . Meanwhile, the patient's white cell count was at 14.2. The patient had a potassium level of 6.5 was being treated in the emergency department with a combination of Kayexalate, D50 and insulin and bicarb and the patient was severely acidotic with anion gap metabolic acidosis with a gap of 26 and a bicarb level of 5, creatinine of 9.4, and a troponin level of 1.2. EKG is not showing any acute ischemic abnormalities and is showing a normal sinus rhythm with a left bundle-branch block pattern. Subsequent potassium level was 7.1. Waldemar saw the patient in the ICU and we're going to start peritoneal dialysis. Meanwhile the patient is being resuscitated IV fluids. We'll start empiric antibiotic coverage. We'll monitor cardiac enzymes and obtain an echocardiogram. The computed tomography scan of the brain and C-spine showed no evidence of acute fracture and there was no evidence of any acute intracranial hemorrhage. On 08/28/2018 I'm seeing this patient for a follow-up. This is a very complicated case with present it with severe metabolic acidosis, respiratory failure, hyperkalemia and hypotension. The patient is being seen today in a follow-up. The patient remains sedated on a mechanical ventilator. This morning, she doesn't assist-control at the rate of 22, tidal volume 600, FiO2 of 50% and a PEEP of 5. Blood gases showed a component of acute respiratory alkalosis and the pH was at 7.47 with a pCO2 of 27 and pO2 1:30. Based on that , I dropped the tidal volume down to 500 by mouth I also drop the FiO2 down to 40%. Chest x-ray still showing a component of pulmonary vessel congestion and small bilateral pleural effusion. CT angios the chest was done yesterday and showed cardiomegaly and bilateral pleural effusion and pulmonary vascular congestion. He was no evidence of any pulmonary embolism. The patient is only on few mics of the low-fat for hemodynamic support. Troponin peaked at 7 and the patient is still on IV heparin and aspirin.. The patient had an echocardiogram yesterday that showed severe impaired LV function with an ejection fraction of 25-30%. In addition, there was segmental wall motion abnormalities involving the inferior wall and anteroseptal wall septum. The right ventricular pressure was estimated to be 42 mmHg. There was no significant valvular abnormalities. Left atrium was dilated. There was mild aortic stenosis. The patient had cultures sent and the blood culture and the abdominal fluid culture came back all negative. She remains on a combination of vancomycin and meropenem. Afebrile. White cell count is not elevated. Infected has dropped from 17 down to 11.9. Potassium level has also dropped down to 3.7 and the patient has a bicarb level which is up to 17. Calcium level is at 6.4. Phosphorus level is at 8.1. The patient was receiving abdominal PD 4 times a day with a 1.5% solution. Furthermore, the patient was noted to be somewhat hypothyroid with a TSH of 101 100 and a free T4 of 0.74. She was placed on 100 mg of IV Synthroid on a daily basis. Her hypothermia has also recovered. She is on tube feeds for now. Family is at the bedside. On 08/29/2017, I'm seeing this patient for a follow-up. The patient remains intubated on mechanical ventilator. This morning, she did assist-control mode at a rate of 22, tidal volume 500, FiO2 of 40% and a PEEP of 5. The blood gases still showing a component of respiratory alkalosis with a pH of 7.49 and a pCO2 of 32 and pO2 97. Based on this, I dropped the tidal volume down to 450. The patient will be given a sedation holiday again and we'll check weaning parameters and assess his readiness to wean. Upon yesterday's sedation holiday, the patient woke up last and she was able to follow some simple commands. Hemodynamically, the patient is still requiring 2 mics of epinephrine for blood pressure control. The patient is undergoing peritoneal dialysis with several exchanges on a daily basis with her 2.5% solution. The patient has no fever. No chills. Cultures of been negative. She was covered with a combination of Merrem and vancomycin. White cell count is at 17.4. The serum bicarb is up to 21 and there is no hyperkalemia. No other significant abnormalities otherwise for now. Patient was reevaluated today on 08/30/2017, remains on mechanical ventilation, intubated, sedated, remains on relatively high FiO2 100% which I cut down to 70% , and PEEP is at 8. Patient has abnormal chest x-ray showing interstitial edema , I believe the patient has fluid overload although the possibility of noncardiogenic pulmonary edema is not entirely ruled out, but considering the patient's LV dysfunction and considering she has an EF of 25%, this is most likely cardiogenic pulmonary edema in nature. Patient is not making much urine , she is still under peritoneal dialysis, and I believe we are not able to remove significant amount of fluids to improve her pulmonary status. Patient may eventually require hemodialysis. However she is still on a small dose of levo fed, may be able to cut it down and eventually arrange for hemodialysis. Labs were reviewed WBC count is 21.1 hemoglobin is 9.1 ABG showed a pO2 of 87 pCO2 of 34 pH of 7.38. Basic metabolic profile was reviewed continues to have an iron gap of 18 BUN is 67 creatinine 4.60. Chest x-ray as noted above endotracheal tube is intact and in the proper position. Chest x-ray again is consistent with pulmonary edema. Patient was reevaluated today on 08/31/2017, remains on mechanical ventilation, her ventilator settings are tidal volume of 450, assist control rate of 20 FiO2 is 50%, and PEEP is now at 5. Remains on levo fed at 7 mcg/m. Chest x-ray continues to show interstitial edema, and pleural effusions, slight improvement compared to yesterday's chest x-ray. ABG seems to be a lot better today, pO2 was 205 pCO2 29 pH of 7.51. BUN is 65 creatinine 4.29. Electrolytes otherwise are relatively unremarkable. Bicarb is 22. Patient remains on peritoneal dialysis, urine output is less than 10 mL per hour. Final microbiology report is pending, peritoneal fluid was positive for group D enterococcus. Patient remains on vancomycin and Merrem. Changes may be made once we have a final report on the cultures. Patient remains on propofol drip, not quite ready for any weaning trials. Today I will initiate enteral nutrition. Reevaluated today on 09/01/2017, patient remains on mechanical ventilation, ventilator settings are the same, however I was able to cut down the FiO2 to 40 % today. Remains on 4 g of levo fed, chest x-ray is showing worsening right- sided pleural effusion, hence may consider an ultrasound and thoracentesis. Patient is presently on heparin, if thoracentesis is to be done, will hold the heparin for few hours. Oxygenation is improving, and ABG seems to be better today. Hence I have instructed the nurses to wake up the patient, assess her mental status, assess possibly weaning parameters, and even consider a weaning trial today. Ultrasound was ordered, and may even consider thoracentesis. Patient is on propofol, we will hold the propofol and assess mental status today. ABG showed a pO2 of 128 pCO2 of 32 pH of 7.47. Lactulose were reviewed renal profile was reviewed WBC count is 22.2 hemoglobin is 8.8. Discussed with the explosive ordnance handler, still the option of hemodialysis is to be considered if the patient does not continue to improve and cannot wean easily. Remains on antibiotics for her Enterococcus faecalis infection/peritonitis. Remains on enteral feeding and is being well-tolerated. Patient was reevaluated today on 09/02/2017, remains on mechanical ventilation, patient is off propofol for the last 24 hours, waking up, but unable to follow simple instructions yet. Opens eyes, but does not show any other responses. Cannot maintain a good eye contact. Chest x-ray has shown a significant improvement. Especially in the left pleural effusion, her gases are excellent, however considering her mental status, the patient is definitely not quite ready to be extubated at this point yet. No plans to do thoracentesis on this patient at this point. ABG showed a pO2 of 88 pCO2 of 27 pH of 7.60, patient is on 40% FiO2, and the same vent settings as noted above including tidal volume of 450, her rate was cut down to 12, and her FiO2 remains at 40% and PEEP is at 5. She is off norepinephrine. I switch the patient to a pressure support of 8 and CPAP, it is well-tolerated, however again considering her mental status him not quite ready to extubate the patient at this point yet. All labs were reviewed. Cultures from the peritoneal fluid were reviewed. Patient remains on vancomycin. Merrem was discontinued. Patient was reevaluated today on 09/03/2017, has been on pressure support and CPAP overnight, patient is doing well, her tidal volume is excellent, and her respiratory rate is in the teens. Her ABG was reviewed this morning, chest x- ray was reviewed, there is definite improvement in her chest x-ray and her oxygenation, patient is a bit more awake, follows simple instructions, but not fully 100% awake. She seems to be generally weak, and cannot have a good cough. Considering her overall clinical picture, I felt it would be the best time at this point to extubate the patient. Family was made aware of her overall condition, family is at bedside, we've and discussed the CODE STATUS and possible reintubation if she fails. If the patient is to be reintubated, they are well aware that she will eventually require tracheostomy if she does fail this time. Reviewed her chest x-ray, reviewed all the labs ABG, weaning parameters, and proceeded to extubating the patient to a nasal cannula. ABG on pressure support and CPAP showed a pO2 of 151 pCO2 of 34 pH of 7.50. CBC is relatively unremarkable, hemoglobin is a bit low but not unexpected considering her renal failure. Reevaluated today on 09/04/2017, patient tolerated extubation well, however her mental status seems to be a bit concerning. Patient is following very simple instructions like opening eyes and closing eyes, sometimes may wiggle her toes upon request, however not squeezing hands, and clearly does not seem to be alert or oriented. CT of the brain was done, came back basically nondiagnostic. Neurological consultation was initiated. Patient has been off narcotics and sedatives for almost over 2 days. Metabolically, her CBC is relatively unremarkable. And her basic metabolic profile is relatively normal except for BUN of 51 creatinine of 3.29. Family is at bedside, updated on her condition. And updated on the computed tomography scan of the brain findings. Neurology was consulted. Reevaluated today on 09/05/2017, patient is doing much per her today, at least she is showing some neurological responses, minimal communication, able to follow more simple instructions. But overall remains confused. Tries to answer simple questions, squeezing hands, sticking out her tongue were requested , closing eyes, but she remained generally weak and I believe she is still not fully alert and oriented. Continues to have a nasal trumpet in place, and we are using that for suctioning, able to cough when suctioned through the trumpet. Blood pressure was noted a bit low today, hence she is on norepinephrine at 4 mcg/m, I have started her on IV fluid at 50 mL per hour. I have also instructed speech therapy evaluation, and possibly swallow evaluation and maybe start feeding however if she has issues with feeding we'll may have to consider a Dobbhoff tube in this patient. Unable to recognize patient's in the room related to her. CBC showed WBC count of 18.4, electrolytes are normal. BUN is 47 creatinine is 3.50. Blood sugar was noted to be low today, and she received D50. On 09/06/2017 patient seen in follow-up. She is awake, alert, although confused , and oriented only to person. Disoriented to place and time. Currently on room air, with a pulse ox of 99%, she has had low-grade fevers of T-max of 99.1 F. Hemodynamically stable, maintenance IV fluids include 0.9 at a rate of 10 ML per hour, Levothroid is currently off. Today's chest x-ray has been reviewed , and shows [id number] silhouetting of the pulmonary vasculature, consistent with fluid overload, and right lower lobe infiltrate or atelectasis. Clinically patient denies any shortness of breath, or chest pain. Denies any distress. Cardiology results have been reviewed, and peritoneal fluid was positive for Enterococcus faecalis, and the patient is on vancomycin. He was initially intubated in the ER on 08/27/2017, then extubated on 08/29/2017, then again reintubated on 08/30/2017 and extubated on 09/03/2017, so far she is tolerating extubation well. Her mentation is improving, she is having her peritoneal dialysis exchanges every 6 hours, nephrology is following. Days labs were reviewed, leukocytosis is trending down, the FVC is down to 15.9, hemoglobin is 7.6, renal profile is relatively unchanged. Sodium is 135, potassium is 4.0, chloride is 98, CO2 is 25. Overall patient is improving. We' ll continue with current medical treatment. On 09/07/2017 patient remains in intensive care unit. She is lethargic, in the nursing reports patient has been sleeping poorly at night, related to her restlessness. She remains confused, and this morning is drifting back to sleep , and is not verbally responding. Room air pulse ox is 97%, patient did have hypotension this morning the blood pressure of 69 with 49, requiring norepinephrine drip which is currently infusing at a rate of 2 mics per minute. Maintenance IV is 0.9 at a rate of 30 ML per hour. These hemoglobin is 6.7, with no obvious source of bleeding, and patient will be transfused with 1 unit of PRBC. Today's chest x-ray has been reviewed, and was consistent with changes of fluid overload, pulmonary edema. Patient continues on peritoneal dialysis exchanges every 6 hours, today's labs reveal BUN of 39, creatinine is 3.5, sodium is 135, potassium is 3.6, chloride is 97, CO2 is 25. Lung sounds are positive for bibasilar crackles, patient does not appear to be in any distress. We will increase the midodrine dose to 10 mg 3 times daily, and wean vasopressor support. We had a discussion with the patient's daughter who is her legal guardian, and CODE STATUS was addressed. Per daughter the patient's wishes are for short-term life-support, but no tracheostomy or and tube insertion. On 09/08/2017 patient seen again in follow-up in the intensive care unit. She is lethargic, but more arousable this morning, and is able to respond verbally. She remains confused. Vital signs are stable, she is afebrile, room air pulse ox is 97%. No new positive cultures other than the peritoneal fluid culture from 08/27/2017 positive for Enterococcus faecalis, and the patient remains on vancomycin. No shortness of breath, denies any discomfort. His chest x-ray has been reviewed by Dr. Powell and shows persistent changes compatible with congestive heart failure and fluid overload. Patient continues on peritoneal dialysis exchanges every 6 hours, tolerating them well, today's labs were reviewed, WBC 17, hemoglobin is 8.3, BUN is 38, creatinine is 3.50, the renal profile is essentially unchanged. From pulmonary/critical care standpoint patient is stable to transfer out of the intensive care to the regular medical surgical floor. Continue current medical treatment. Objective - Vital Signs Vital signs: Vital Signs Temp 99 F 09/08/17 06:46 Pulse 87 09/08/17 08:40 Resp 19 09/08/17 07:00 BP 101/53 09/08/17 06:46 Pulse Ox 97 09/08/17 07:00 Intake & Output 09/07/17 09/08/17 09/08/17 18:59 06:59 18:59 Intake Total 1642.257 280 10 Output Total 0 0 Balance 1642.257 280 10 Weight 58.3 kg Intake: IV 580 280 10 ACETAMINOPHEN IV (For NPO 100 ) 1,000 mg In Empty Bag 1 bag @ 400 mls/hr IVPB Q6HR PRN Rx#:[id number] Potassium Chloride 20 meq 200 In Water For Injection 1 100ml.bag @ 50 mls/hr IVPB Q2H ALEXANDRA Rx#: [id number] Sodium Chloride 0.9% 1, 280 280 10 000 ml @ 10 mls/hr IV . Q24H ALEXANDRA Rx#:[id number] Intake, IV Titration 42.257 0 Amount Norepinephrin 16 mg-0.9% 42.257 0 Ns Pmx 16 mg In 250 ml @ Titrate IV .Q0M ALEXANDRA Rx#: [id number] Oral 360 Blood Product 660 Rc As-1 Unit 310 [id number] Output: Urine 0 0 Other: Voiding Method CAPD ABP, PAP, CO, CI - Last Documented Arterial Blood Pressure 110/54 - Exam Physical exam revealed a 67-year-old female, chronically ill, in no distress, confused, lethargic Head exam was generally normal. There was no scleral icterus or corneal arcus. Mucous membranes were moist. Neck was supple and without jugular venous distension, thyromegaly, or carotid bruits. Carotids were easily palpable bilaterally. There was no adenopathy. Lungs sounds are diminished bilaterally, no rhonchi, no wheezes Heart sounds irregular irregular rhythm, positive S1-S2, no significant murmurs appreciated. Abdominal exam revealed normal bowel sounds. The abdomen was soft, non-tender, and without masses, organomegaly, or appreciable enlargement of the abdominal aorta. The patient has a PD catheter which is in place and there is no direct tenderness Extremities revealed no edema. Pulses in lower extremities are markedly diminished. The patient has necrotic digits at the tips of the digits involving the third mid finger on the left and the fourth finger on the right. There is evidence of dry gangrene. No evidence of any wound infection. The area is pretty much black and necrotic. No lower extremities edema. No cyanosis. Neurologic : Opens eyes, lethargic on today's exam, but arousable to verbal stimuli, and responds verbally, confused - Labs CBC & Chem 7: 09/08/17 04:20 09/08/17 04:20 Labs: Abnormal Lab Results - Last 24 Hours (Table) 09/07/17 09/07/17 09/07/17 Range/Units 07:23 11:56 15:40 WBC 16.4 H (3.8-10.6) k/uL RBC 2.97 L (3.80-5.40) m/uL Hgb 8.7 L D (11.4-16.0) gm/dL Hct 27.5 L (34.0-46.0) % Neutrophils # 13.2 H (1.3-7.7) k/uL Sodium (137-145) mmol/L Chloride (98-107) mmol/L BUN (7-17) mg/dL Creatinine (0.52-1.04) mg/dL Glucose (74-99) mg/dL POC Glucose (mg/dL) 130 H (75-99) mg/dL Calcium (8.4-10.2) mg/dL Phosphorus (2.5-4.5) mg/dL Crossmatch See Detail 09/07/17 09/07/17 09/08/17 Range/Units 17:33 21:47 04:20 WBC (3.8-10.6) k/uL RBC (3.80-5.40) m/uL Hgb (11.4-16.0) gm/dL Hct (34.0-46.0) % Neutrophils # (1.3-7.7) k/uL Sodium 133 L (137-145) mmol/L Chloride 96 L (98-107) mmol/L BUN 38 H (7-17) mg/dL Creatinine 3.50 H (0.52-1.04) mg/dL Glucose 169 H (74-99) mg/dL POC Glucose (mg/dL) 113 H 166 H (75-99) mg/dL Calcium 6.9 L (8.4-10.2) mg/dL Phosphorus 6.2 H (2.5-4.5) mg/dL Crossmatch 09/08/17 09/08/17 Range/Units 04:20 07:59 WBC 17.0 H (3.8-10.6) k/uL RBC 2.88 L (3.80-5.40) m/uL Hgb 8.3 L (11.4-16.0) gm/dL Hct 26.2 L (34.0-46.0) % Neutrophils # 13.9 H (1.3-7.7) k/uL Sodium (137-145) mmol/L Chloride (98-107) mmol/L BUN (7-17) mg/dL Creatinine (0.52-1.04) mg/dL Glucose (74-99) mg/dL POC Glucose (mg/dL) 177 H (75-99) mg/dL Calcium (8.4-10.2) mg/dL Phosphorus (2.5-4.5) mg/dL Crossmatch Assessment and Plan Plan: Assessment: 1 acute hypoxic respiratory failure, multifactorial, The patient has a component of fluid overload and pulmonary vessel congestion small bilateral pleural effusion. The severe metabolic acidosis has resolved. 2 acute hypotension , resolved, and off norepinephrine today. 3 acute non-STEMI PA troponin peaked at 7, still on a combination of aspirin, IV heparin has been discontinued 4 coronary artery disease with previous coronary artery bypass surgery 5 End stage renal disease on hemodialysis via peritoneal dialysis. The patient has been on PD since November 2016. 6 acute hyperkalemia secondary to severe metabolic acidosis, resolved 7 severe anion gap metabolic acidosis, resolved 8 history of obesity status post gastric bypass surgery 9 diabetes mellitus recovered following bariatric surgery and the patient is currently on no diabetic medications 10 hypertension, history of 11 hypothyroidism, chemically still hypothyroid with a TSH of more than 100 and a free T4 of 0.74 and the patient will be kept on IV Synthroid. 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 15 seeking kidney transplantation at [facility] 16 chronic anemia, normocytic 17 hypoproteinemia and hypoalbuminemia 18 hypothermia, recovered 19 severe peripheral vascular disease 20 acute abdominal sepsis the peritoneal fluid is positive for Enterococcus faecalis, vancomycin susceptible. Remains on vancomycin, presently off Merrem Recommendation: Levofed has been on hold, patient is maintaining stable blood pressures, afebrile. She remains confused but in no distress. Continue current medical treatment. Continue current antibiotic coverage. Continue nebulized bronchodilators. No acute events overnight, patient has remained stable and can transfer out of intensive care unit today to the regular medical surgical floor. I performed a history & physical examination of the patient and discussed their management with my nurse practitioner, Tracy Landers. I reviewed the nurse practitioner's note and agree with the documented findings and plan of care. Lung sounds are diminished. The findings and the impression was discussed with the patient. I attest to the documentation by the nurse practitioner. Time with Patient: Greater than 30
--- NOTE | 2017-09-08 09:11 | XR ---
EXAMINATION TYPE: XR chest 1V portable DATE OF EXAM: 09/08/2017 COMPARISON: Prior chest x-ray 09/07/2017 HISTORY: Congestive heart failure, follow-up TECHNIQUE: Single frontal view of the chest is obtained. FINDINGS: There is interval obscuration of the left hemidiaphragm. Interstitium is increased, suspec t bilateral airspace disease. No evident pneumothorax. Blunting of the costophrenic angle noted on th e right. Heart remains enlarged. Patient is post median sternotomy and rotated. There are overlying c ardiac leads. IMPRESSION: Findings may represent worsening congestive heart failure with associated effusions. Add itional follow-up recommended.
[2017-09-08] MEDS ORDERED: DEXTROSE 50%-WATER 50 ML SYRINGE IVP ONE (12:16)
[2017-09-08 12:17] LABS: Glucose,Whole Blood 65 mg/dL (75-99)
[2017-09-08 12:36] LABS: Glucose,Whole Blood 114 mg/dL (75-99)
[2017-09-08 14:53] VITALS: BMI 24.3
--- NOTE | 2017-09-08 16:11 | PN ---
PROGRESS NOTE Patient is seen for followup for end-stage renal disease. This morning she is lying in bed. The patient is comfortable. She denies any significant complaints. Patient denies any chest pains or shortness of breath. She is off of the pressors. On examination this morning, blood pressure was 82/51, heart rate of 88 per minute. Patient is afebrile. EXAMINATION OF THE HEART: S1, S2. EXAMINATION OF LUNGS: Bilateral breath sounds are heard. ABDOMEN: Soft, non-tender. Examination of lower extremities shows no evidence of edema. There are gangrenous changes noted in the left heel as well as in the digits on both hands. Patient is moving all 4 extremities. Labs show sodium 133, potassium 3.8, hemoglobin 8.3 g/dL, phosphorus 6.2. ASSESSMENT: 1. End-stage renal disease, on peritoneal dialysis. Last night I was called by the nurse saying that patient appeared to be in fluid overload. She was given a 2.5% exchange last night. IV fluids were discontinued this morning. I will continue with the 1.5% solution q.6 hours. Patient does not appear to be clinically significantly volume-overloaded. 2. Respiratory failure, status post extubation. 3. Hypotension, which is chronic. Maintained on midodrine. Cortisol level was not low. Continue with the midodrine for now. 4. Volume overload, currently improved. Chest x-ray continues to show evidence of pulmonary vascular congestion; however, clinically patient is fairly stable and saturating 95% on room air. I will continue with the current PD exchanges. We can add another 2.5% solution later on during the day; however, this may worsen her hypotension as well. 5. Generalized debility. 6. Altered mentation. Currently her mentation is not back to baseline yet. Etiology is likely underlying sepsis and hospitalization and ICU stay. 7. Enterococcus faecalis peritonitis associated with CAPD, status post treatment. I will check the PD fluid for cell count. It had been down to 4 on 09/02/2017. The highest cell count was at 170 on initial admission. No plan for changing the catheter at this time. 8. Severe cardiomyopathy, ejection fraction of 20% to 25%. Patient is not a good candidate for hemodialysis. MMODL / IJN: [id number] /
[2017-09-08] MEDS: ACETAMINOPHEN TAB 325 MG TAB PO PRN ×2 (16:53→20:31)
--- NOTE | 2017-09-08 17:43 | P.PN ---
Subjective 65-year-old the being treated for acute respiratory failure secondary to sepsis source unclear possibly lower limb ulcerations or peritonitis. Patient remains intubated patient is presently on 40% FiO2 PEEP of 5 and tidal volume of 500 continues to have metabolic acidosis which improved compared to yesterday. Patient is undergoing peritoneal dialysis remains on epinephrine, propofol drip , IV heparin for possible non-ST elevation myocardial infarction, on antibiotics meropenem and vancomycin with the so for negative cultures, very minimal urine output, hypotension improved, possibility of a superimposed cardiac sharp with bilateral pleural effusions 08/29/2017 Patient is off sedation undergoing weaning trials, on 1 g of epinephrine. Patient is awake and arousable intubated on BiPAP through ventilator 08/30/17 reintubated last night with FiO2 at 70%/+8 of PEEP. Chest x-ray reporting increasing lung opacity's, worsening edema and or infiltrates. Maintained on DIprova, heparin and Levophed drips. Troponin up to 9.5. Minimal urine output. Peritoneal dialysis cultures reporting enterococcus. Potential hemodialysis being discussed. Telemetry sinus rhythm. 08/31/17 remains vent dependent. CXR and ABGs improving. FiO2 decreased to 50% and PEEP decreased down to 5%. No weaning trials, yet. Tube feedings being initiated. Bicarb 22. PD changed to every 4 hours with solution adjusted as per nephrology. Levophed down to 7 mics. Maintained on Merrem and vancomycin, peritoneal cultures positive for enterococcus D, final results pending. 09/01/17 continues on antibiotics for enterococcus faecalis peritonitis. remains vent dependent, FiO2 decreased to 40%/+5 of PEEP. ABGs improved. Maintain on heparin, diprovan and Levophed drips. Prior chest ultrasound reported bilateral pleural effusions greater on the left with largest pocket 8.3 cm. Chest x-ray reporting bilateral consolidation, pleural effusions, small amount of subcutaneous emphysema along right lateral chest wall. Chest ultrasound repeated with both left and right-sided marked for possible thoracentesis. Paroximal A. fib, currently sinus rhythm. Pulmonary discussing possible weaning parameters. Tube feeds at goal with minimal to no residuals. 09/02/2017 Patient remained on mechanical ventilator. Changed to per support and is starting to wean off from in today. Patient is able to open her eyes and could not follow any commands. Chest x-ray showed improvement in left pleural effusion. Pulmonary is now planning for thoracentesis at this time. Patient is off pressors support. Patient is being continued on vancomycin for enterococcus fecaliths in the peritoneal fluid. Meropenem has been discontinued. Pulmonary and ID is following. 09/03/2017 Patient was extubated today. Otherwise still confused but able to move her extremities. Could not able to communicate at this time. Patient is generally weak and unable to tolerate oral diet and currently on nothing by mouth. Chest x-ray showed improvement. Patient is being continued on antibiotics otherwise. Peritoneal dialysis every 6 hourly. 09/04/2017 Patient is extubated and is oxygenating well on nausea cannula. Mental status otherwise system confused and could not able to speak at this time. Patient is able to open her eyes and follow simple commands. CT head was done showed no acute intracranial process. No change from prior study Chest x-ray showed right basilar opacity and could represent atelectasis or pneumonia. Neurology was consulted for further evaluation. WBC 14, BUN 51 creatinine 3.29 Discussed with the family at bedside. 09/05/2017 Patient is currently saturating well on nasal cannula. Patient was started back on low-dose Levophed today. Otherwise mental status slightly improved and is able to talk single words occasionally. Patient seems more oriented today. Neurology has seen the patient. Repeat CT head was ordered. Swallowing evaluation tomorrow. No fever no chills. Patient is being continued on antibiotics and parenteral dialysis as scheduled. 09/06/2017 Patient is awake and more oriented today. Able to communicate slowly. Otherwise patient did well with swallow study. Patient is off pressors support. Anticipate starting on oral diet tomorrow. No fever no chills. Saturating well on nasal cannula. Leukocytosis improving to 15.9 complaints of chest pain or worsening shortness of breath. No nausea vomiting or abdominal pain. 09/07/2017 Patient is on low-dose pressor support today. Patient has enterococcus in the peritoneal fluid patient remains on broad-spectrum antibiotics. 09/08/2017 Patient is being transferred out of ICU off pressor support patient's meropenem was discontinued patient has enterococcal bacterial peritonitis patient is on vancomycin. Patient still has pain in the digits secondary to peripheral vascular disease and necrosis of multiple fingers. Her overall prognosis is extremely poor same thing discuss with the sister. Patient received the Dilaudid after which patient is sleeping comfortably today Objective - Vital Signs Vital signs: Vital Signs Temp 99.1 F 09/08/17 15:00 Pulse 93 09/08/17 16:40 Resp 18 09/08/17 16:00 BP 98/52 09/08/17 15:00 Pulse Ox 92 L 09/08/17 15:00 Intake & Output 09/07/17 09/08/17 09/08/17 18:59 06:59 18:59 Intake Total 1642.257 280 30 Output Total 0 0 Balance 1642.257 280 30 Weight 58.3 kg 58.3 kg Intake: IV 580 280 30 ACETAMINOPHEN IV (For NPO 100 ) 1,000 mg In Empty Bag 1 bag @ 400 mls/hr IVPB Q6HR PRN Rx#:[id number] Potassium Chloride 20 meq 200 In Water For Injection 1 100ml.bag @ 50 mls/hr IVPB Q2H [facility] Rx#: [id number] Sodium Chloride 0.9% 1, 280 280 30 000 ml @ 10 mls/hr IV . Q24H [facility] Rx#:[id number] Intake, IV Titration 42.257 0 Amount Norepinephrin 16 mg-0.9% 42.257 0 Ns Pmx 16 mg In 250 ml @ Titrate IV .Q0M [facility] Rx#: [id number] Oral 360 Blood Product 660 Rc As-1 Unit 310 [id number] Output: Urine 0 0 Other: Voiding Method CAPD CAPD ABP, PAP, CO, CI - Last Documented Arterial Blood Pressure 96/46 - Exam GENERAL: Patient is sleeping and arousable HEENT: Pupils are round and equally reacting to light. EOMI. No scleral icterus. No conjunctival pallor. Normocephalic, atraumatic. No pharyngeal erythema. No thyromegaly. CARDIOVASCULAR: S1 and S2 present. No murmurs, rubs, or gallops. Tachycardic PULMONARY: Fairly good air entry into bilateral lung portillo bifascicular crackles are appreciated ABDOMEN: Soft, nontender, nondistended, normoactive bowel sounds. No palpable organomegaly. PD catheter present. MUSCULOSKELETAL: No joint swelling or deformity. EXTREMITIES: Multiple ulcerations in bilateral lower limbs and wounds please refer to nursing documentation for further details, markedly diminished bilateral dorsalis pedis pulses. Toes of bilateral feet dark purple. Black, Necrotic digits on bilateral hands involving right fourth finger and left third and fourth fingers.Stage II Right Buttock-nondraining. Patient has necrosis of multiple bilateral digits NEUROLOGICAL: No focal deficits noted. Patient does have generalized weakness. SKIN: No lesions. No rashes. - Labs CBC & Chem 7: 09/08/17 04:20 09/08/17 04:20 Labs: Abnormal Lab Results - Last 24 Hours (Table) 09/07/17 09/08/17 09/08/17 Range/Units 21:47 04:20 04:20 WBC 17.0 H (3.8-10.6) k/uL RBC 2.88 L (3.80-5.40) m/uL Hgb 8.3 L (11.4-16.0) gm/dL Hct 26.2 L (34.0-46.0) % Neutrophils # 13.9 H (1.3-7.7) k/uL Sodium 133 L (137-145) mmol/L Chloride 96 L (98-107) mmol/L BUN 38 H (7-17) mg/dL Creatinine 3.50 H (0.52-1.04) mg/dL Glucose 169 H (74-99) mg/dL POC Glucose (mg/dL) 166 H (75-99) mg/dL Calcium 6.9 L (8.4-10.2) mg/dL Phosphorus 6.2 H (2.5-4.5) mg/dL 09/08/17 09/08/17 09/08/17 Range/Units 07:59 12:15 12:35 WBC (3.8-10.6) k/uL RBC (3.80-5.40) m/uL Hgb (11.4-16.0) gm/dL Hct (34.0-46.0) % Neutrophils # (1.3-7.7) k/uL Sodium (137-145) mmol/L Chloride (98-107) mmol/L BUN (7-17) mg/dL Creatinine (0.52-1.04) mg/dL Glucose (74-99) mg/dL POC Glucose (mg/dL) 177 H 65 L 114 H (75-99) mg/dL Calcium (8.4-10.2) mg/dL Phosphorus (2.5-4.5) mg/dL Assessment and Plan Plan: -Acute metabolic ENCEPHALOPATHY. CT head negative.. Improving clinically. -Acute abdominal sepsis secondary to peritonitis with enterococcus fecalis., possibly related to PD catheter-though initial white count 170 with repeat PD fluid cell count 35, peritoneal fluid positive for enterococcus faecialis. Patient is on vancomycin which will be continued for 2 more weeks as per infectious disease -Septic shock with possibility of cardiogenic shock secondary to acute NSTEMI. Severe cardiomyopathy ejection fraction of around 25%. Shock improved but still remains on low-dose of pressors -Acute hypotension secondary to the above. -Acute Hypoxic respiratory failure, mechanical ventilator-dependent, re- intubated. Currently extubated. 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
[2017-09-08 17:53] LABS: Glucose,Whole Blood 125 mg/dL (75-99)
[2017-09-08] MEDS ORDERED: HYDROmorphone 0.5 MG/0.5 ML SYRINGE IVP STA (20:48)
[2017-09-08 21:18] LABS: Glucose,Whole Blood 114 mg/dL (75-99)
[2017-09-08] MEDS: GABAPENTIN 100 MG CAP PO SCH (21:48)
--- NOTE | 2017-09-08 23:14 | P.PN ---
Subjective Progress Note Date: 09/08/17 67-year-old female presented visit care unit where she was intubated sedated and mechanically ventilated receiving her CAPD. Is related from the available data that she receives her to [facility] and has been cared for in [facility] in [place] where she's been evaluated for renal transplantation from a living related donor, her daughter. The patient has a long-standing history of diabetes mellitus type 2 and has end- stage renal disease related to this and normally is cared for with. Dialysis via the nighttime cycler, and has been doing this well in November 2016. Patient has known severe peripheral vascular disease and did apparently have a left upper extremity AV fistula that was placed however did not function well and with the what appears to be steal syndrome is without evidence the dry gangrenous third and fourth fingers of the left hand. Is also developed a dry gangrenous changes to the right hand middle finger also. consider gastric bypass she remains with severe obesity although apparently it has improved and she has underlying cardiovascular disease and severe peripheral vascular disease. the patient has evidence of a peritoneal dialysis sample with evidence of enterococcus and with at the infectious diseases consultation was requested. 08/31/2017 patient remains in intensive care unit intubated sedated and mechanically ventilated with decreasing doses of vasopressor therapy, epinephrine has been discontinued. The patient has been tolerating her CAPD well and is now getting into some negative balance. Nephrology has evaluated is holding on hemodialysis as long as CAPD continues to be effective. Laboratory has finalize the culture as enterococcus, not VRE, from the peritoneal fluid. Blood culture negative so far sputum culture is pending. 09/01/2017 patient is had some further improvement. Her sedation is being held with contemplation for further weaning tomorrow. She's not having fever. Vasopressor therapy has been weaned. The peritoneal dialysis is allowing some improvement of her volume overload and her creatinine is improving 09/02/2017 there is been some further improvement today. She has been weaned off of sedatives and is having some response to her name and did follow command earlier. She is in a weaning trial seems doing relatively well. Appear to dialysis is continuing to allow a negative fluid balance which will put will further help her respiratory status. No other positive cultures are noted except for the enterococcus of the peritoneal fluid. 09/03/2017 the patient is extubated. She is a bit more interactive. CAPD continues to have affected negative fluid balance. 09/06/2017 the patient has been extubated and is able to communicate. Her cognitive abilities seem to be quite diminished, in that simple questions are answered but then makes very little sense answering some other more complex questions. She denies pain at this time. She also denied being short of breath. 09/07/2017 the patient is awake alert is able to answer a few questions but does have significant bizarre behavior still at this time. She seems to be comfortable but does call out at times. Nursing does not relate any other acute changes today.. 09/08/2017 patient is Arousable attempts to answer questions but continues to have bizarre behavior. She seems to be comfortable. Objective - Vital Signs Vital signs: Vital Signs Temp 98.9 F 09/08/17 23:00 Pulse 112 H 09/08/17 23:00 Resp 16 09/08/17 23:00 BP 84/55 09/08/17 23:00 Pulse Ox 92 L 09/08/17 15:00 Intake & Output 09/08/17 09/08/17 09/09/17 06:59 18:59 06:59 Intake Total 280 30 Output Total 0 0 Balance 280 30 Weight 58.3 kg 58.3 kg Intake: IV 280 30 Sodium Chloride 0.9% 1, 280 30 000 ml @ 10 mls/hr IV . Q24H [facility] Rx#:[id number] Intake, IV Titration 0 Amount Norepinephrin 16 mg-0.9% 0 Ns Pmx 16 mg In 250 ml @ Titrate IV .Q0M [facility] Rx#: [id number] Output: Urine 0 0 Other: Voiding Method CAPD CAPD # Voids 1 ABP, PAP, CO, CI - Last Documented Arterial Blood Pressure 96/46 - Exam 67-year-old female who appears older than her stated age, she is now extubated and seems comfortable HEENT: Anicteric conjunctiva are pink and moist nasal mucosa grossly intact without significant lesions, there is no thrush.poor dentition Neck: The neck is supple without significant lymphadenopathy or thyromegaly. Lungs: there is symmetrical air entry with expiratory wheezes that are scattered no herber bronchial sounds are heard Heart: irregular with audible S1 and S2 soft S4 no distinct murmur click or rub PMI was nondisplaced with urethral Abdomen: Positive bowel sounds soft nonrigid without palpable masses or organomegaly. Extremities: the right upper extremities shows evidence of the third finger distal mummification, similar has occurred third finger to the left hand. The lower extremities are cool but not frankly cold the significant open ulcerations on the right lateral foot without change and are dry. Neuro: She verbally answers to her name. She answers simple questions occasionally appropriately. But when asking how she feels today is not able to answer. - Labs CBC & Chem 7: 09/08/17 04:20 09/08/17 04:20 Labs: Abnormal Lab Results - Last 24 Hours (Table) 09/08/17 09/08/17 09/08/17 Range/Units 04:20 04:20 07:59 WBC 17.0 H (3.8-10.6) k/uL RBC 2.88 L (3.80-5.40) m/uL Hgb 8.3 L (11.4-16.0) gm/dL Hct 26.2 L (34.0-46.0) % Neutrophils # 13.9 H (1.3-7.7) k/uL Sodium 133 L (137-145) mmol/L Chloride 96 L (98-107) mmol/L BUN 38 H (7-17) mg/dL Creatinine 3.50 H (0.52-1.04) mg/dL Glucose 169 H (74-99) mg/dL POC Glucose (mg/dL) 177 H (75-99) mg/dL Calcium 6.9 L (8.4-10.2) mg/dL Phosphorus 6.2 H (2.5-4.5) mg/dL 09/08/17 09/08/17 09/08/17 Range/Units 12:15 12:35 17:51 WBC (3.8-10.6) k/uL RBC (3.80-5.40) m/uL Hgb (11.4-16.0) gm/dL Hct (34.0-46.0) % Neutrophils # (1.3-7.7) k/uL Sodium (137-145) mmol/L Chloride (98-107) mmol/L BUN (7-17) mg/dL Creatinine (0.52-1.04) mg/dL Glucose (74-99) mg/dL POC Glucose (mg/dL) 65 L 114 H 125 H (75-99) mg/dL Calcium (8.4-10.2) mg/dL Phosphorus (2.5-4.5) mg/dL 09/08/17 Range/Units 20:54 WBC (3.8-10.6) k/uL RBC (3.80-5.40) m/uL Hgb (11.4-16.0) gm/dL Hct (34.0-46.0) % Neutrophils # (1.3-7.7) k/uL Sodium (137-145) mmol/L Chloride (98-107) mmol/L BUN (7-17) mg/dL Creatinine (0.52-1.04) mg/dL Glucose (74-99) mg/dL POC Glucose (mg/dL) 114 H (75-99) mg/dL Calcium (8.4-10.2) mg/dL Phosphorus (2.5-4.5) mg/dL Laboratory Results WBC 17.0 k/uL (3.8-10.6) H 09/08/17 04:20 RBC 2.88 m/uL (3.80-5.40) L 09/08/17 04:20 Hgb 8.3 gm/dL (11.4-16.0) L 09/08/17 04:20 Hct 26.2 % (34.0-46.0) L 09/08/17 04:20 MCV 90.7 fL (80.0-100.0) 09/08/17 04:20 MCH 28.8 pg (25.0-35.0) 09/08/17 04:20 MCHC 31.7 g/dL (31.0-37.0) 09/08/17 04:20 RDW 14.3 % (11.5-15.5) 09/08/17 04:20 Plt Count 326 k/uL (150-450) 09/08/17 04:20 Neutrophils % 82 % 09/08/17 04:20 Lymphocytes % 11 % 09/08/17 04:20 Monocytes % 3 % 09/08/17 04:20 Eosinophils % 3 % 09/08/17 04:20 Basophils % 0 % 09/08/17 04:20 Neutrophils # 13.9 k/uL (1.3-7.7) H 09/08/17 04:20 Lymphocytes # 1.9 k/uL (1.0-4.8) 09/08/17 04:20 Monocytes # 0.5 k/uL (0-1.0) 09/08/17 04:20 Eosinophils # 0.4 k/uL (0-0.7) 09/08/17 04:20 Basophils # 0.1 k/uL (0-0.2) 09/08/17 04:20 Hypochromasia Slight 09/07/17 15:40 Poikilocytosis Slight 09/08/17 04:20 Anisocytosis Slight 08/28/17 04:00 PT 13.7 sec (9.0-12.0) H 08/28/17 04:00 INR 1.5 (<1.2) H 08/28/17 04:00 APTT 44.0 sec (22.0-30.0) H 09/02/17 04:00 D-Dimer 5.03 mg/L FEU (<0.60) H 08/27/17 04:44 Sample Site Skye 09/03/17 07:22 ABG pH 7.50 (7.35-7.45) H 09/03/17 07:22 ABG pCO2 34 mmHg (35-45) L 09/03/17 07:22 ABG pO2 151 mmHg (83-108) H 09/03/17 07:22 ABG HCO3 26 mmol/L (21-25) H 09/03/17 07:22 ABG Total CO2 27 mmol/L (19-24) H 09/03/17 07:22 ABG O2 Saturation 98.4 % (94-97) H 09/03/17 07:22 ABG Base Excess 3.1 mmol/L 09/03/17 07:22 Rhett Test No 09/03/17 07:22 ABG Lactic Acid 4.2 mmol/L (0.5-1.6) H* 08/27/17 16:01 FiO2 40 % 09/03/17 07:22 Sodium 133 mmol/L (137-145) L 09/08/17 04:20 Potassium 3.8 mmol/L (3.5-5.1) 09/08/17 04:20 Chloride 96 mmol/L (98-107) L 09/08/17 04:20 Carbon Dioxide 25 mmol/L (22-30) 09/08/17 04:20 Anion Gap 12 mmol/L 09/08/17 04:20 BUN 38 mg/dL (7-17) H 09/08/17 04:20 Creatinine 3.50 mg/dL (0.52-1.04) H 09/08/17 04:20 Est GFR (CKD-EPI)AfAm 15 (>60 ml/min/1.73 sqM) 09/08/17 04:20 Est GFR (CKD-EPI)NonAf 13 (>60 ml/min/1.73 sqM) 09/08/17 04:20 Glucose 169 mg/dL (74-99) H 09/08/17 04:20 POC Glucose (mg/dL) 114 mg/dL (75-99) H 09/08/17 20:54 POC Glu Special Needs Librarian ID Haley Macdonald 09/08/17 20:[address] Glu mg/dL 103 08/27/17 10:35 Hemoglobin A1c 5.2 % (4.0-6.0) 08/27/17 10:35 Lactic Ac Sepsis Rflx Y 08/27/17 11:19 Plasma Lactic Acid Kana mmol/L (0.7-2.0) 08/27/17 10:35 Calcium 6.9 mg/dL (8.4-10.2) L 09/08/17 04:20 Ionized Calcium Karlo 3.5 mg/dL (4.5-5.3) L* 09/02/17 06:00 Phosphorus 6.2 mg/dL (2.5-4.5) H 09/08/17 04:20 Magnesium 1.6 mg/dL (1.6-2.3) 09/08/17 04:20 Total Bilirubin 0.2 mg/dL (0.2-1.3) 09/06/17 04:45 AST 50 U/L (14-36) H 09/06/17 04:45 ALT 39 U/L (9-52) 09/06/17 04:45 Alkaline Phosphatase 131 U/L (38-126) H 09/06/17 04:45 Total Creatine Kinase 292 U/L (30-135) H 08/30/17 04:00 CK-MB (CK-2) 9.5 ng/mL (0.0-2.4) H* 08/30/17 04:00 CK-MB (CK-2) Rel Index 3.3 08/30/17 04:00 Troponin I 9.540 ng/mL (0.000-0.034) H* 08/30/17 04:00 Total Protein 4.3 g/dL (6.3-8.2) L 09/06/17 04:45 Albumin 1.8 g/dL (3.5-5.0) L 09/06/17 04:45 Triglycerides 62 mg/dL (<150) 08/28/17 04:00 Cholesterol 104 mg/dL (<200) 08/28/17 04:00 LDL Cholesterol, Calc 41 mg/dL (0-99) 08/28/17 04:00 HDL Cholesterol 51 mg/dL (40-60) 08/28/17 04:00 TSH >100.000 mIU/L (0.465-4.680) H 08/27/17 10:35 Free T4 0.74 ng/dL (0.78-2.19) L 08/27/17 10:35 Cortisol 21 ug/dL 09/07/17 04:45 Urine Color Yellow 08/27/17 20:00 Urine Appearance Cloudy (Clear) H 08/27/17 20:00 Urine pH 5.0 (5.0-8.0) 08/27/17 20:00 Ur Specific [place] 1.020 (1.001-1.035) 08/27/17 20:00 Urine Protein 1+ (Negative) H 08/27/17 20:00 Urine Glucose (UA) 3+ (Negative) H 08/27/17 20:00 Urine Ketones Negative (Negative) 08/27/17 20:00 Urine Blood Small (Negative) H 08/27/17 20:00 Urine Nitrite Negative (Negative) 08/27/17 20:00 Urine Bilirubin Negative (Negative) 08/27/17 20:00 Urine Urobilinogen <2.0 mg/dL (<2.0) 08/27/17 20:00 Ur Leukocyte Esterase Small (Negative) H 08/27/17 20:00 Urine RBC 1 /hpf (0-5) 08/27/17 20:00 Urine WBC 12 /hpf (0-5) H 08/27/17 20:00 Ur Squamous Epith Cells 11 /hpf (0-4) H 08/27/17 20:00 Amorphous Sediment Few /hpf (None) H 08/27/17 20:00 Hyaline Casts 3 /lpf (0-2) H 08/27/17 20:00 Urine Mucus Rare /hpf (None) H 08/27/17 20:00 Fluid Source Peritoneal 09/02/17 13:20 Fluid Color Colorless 09/02/17 13:20 Fluid Appearance Clear 09/02/17 13:20 Fluid RBC 13 /uL 09/02/17 13:20 Fluid Nucleated Cells 4 /uL 09/02/17 13:20 Fluid Polynuclear WBCs 81 % 08/29/17 14:09 Fluid Mononuclear WBCs 19 % 08/29/17 14:09 Random Vancomycin 19.8 ug/mL 09/08/17 04:20 C. difficile (EIA) Intrp Negative (Negative) 09/01/17 13:35 Blood Type A Positive 09/07/17 07:23 Blood Type Confirm A Positive 09/07/17 04:45 Blood Type Recheck CABO Indicated 09/07/17 07:23 Antibody Screen NEGATIVE 09/07/17 07:23 Crossmatch See Detail 09/07/17 07:23 Spec Expiration Date 09/10/2017 - 2323 09/07/17 07:23 Microbiology 08/27/17 11:00 Blood Blood Culture - Final No Growth after 144 hours 08/27/17 14:10 Peritoneal Fluid Gram Stain - Final 08/27/17 14:10 Peritoneal Fluid Body Fluid Culture - Final Enterococcus faecalis 08/30/17 03:57 Sputum Gram Stain - Final 08/30/17 03:57 Sputum Sputum Culture - Final 08/27/17 23:20 Sputum Gram Stain - Final 08/27/17 23:20 Sputum Sputum Culture - Final 08/27/17 20:00 Urine,Catheterized Urine Culture - Final Assessment and Plan (1) Respiratory failure Current Visit: Yes Status: Acute Code(s): J96.90 - RESPIRATORY FAILURE, UNSP , UNSP W HYPOXIA OR HYPERCAPNIA SNOMED Code(s): 338544955 (2) Renal failure Current Visit: Yes Status: Acute Code(s): N19 - UNSPECIFIED KIDNEY FAILURE SNOMED Code(s): 07397575 (3) Bacterial infection associated with peritoneal dialysis catheter Narrative/Plan: 67-year-old female who is in the intensive care unit she is intubated sedated and mechanically ventilated due to her significant sepsis and hypotension at this time. There is concerns that she has an enterococcal peritonitis related to her CAPD. She's been evaluated by nephrology as well as surgery. At this time antimicrobial therapy has been initiated with vancomycin. Potentially may receive vancomycin in the dialysate if nephrology believes it is a potential. Follow-up sample should be obtained to ensure that there some improvement. there is discussion about the potential for hemodialysis but she is too hypotensive at this point in time. there is no data to suggest that she has a history of VRE will continue vancomycin therapy for now. Cultures for further direct antibiotic therapy. She is receiving meropenem also for now until further data is available. significant leukocytosis occurring directly related to her peritonitis. 08/31/2017 the patient has had similar treatment. Her significant acidosis is improved and is tolerating the CAPD somewhat better actually getting some negative fluid balance. As far as the peritonitis and sepsis appears to be somewhat better today. She is requiring less vasopressor therapy. Leukocytosis remains elevated at 23.8. Of note her creatinine has come down to 4.29 from a peak of 7.9, revealing that the CAPD is showing some affective nature. At this time will continue the antibiotic therapy with vancomycin per pharmacy dosing. Meropenem is being utilize also for now pending sputum culture results, once this is clear that there is not significant gram-negative pneumonia the meropenem can be streamlined. The patient sounds are present and they are updated on her situation. The opti foam will be applied to the stage III pressure ulceration to her buttocks that is present on admission, it was unstageable at admission. 09/01/2017 patient has had some improvement. There is contemplation for further weaning trials in the morning if her mentation continues to improve. She is off vasopressor therapy and with the peritoneal dialysis her creatinine is starting to improve. We'll expect as her sepsis improves and the uremia improves her mentation should further improve. We'll continue vancomycin at this time. If other cultures remain negative we'll be able to discontinue the meropenem tomorrow. Continue treatment for the stage III pressure ulceration with the optifoam. 09/02/2017 patient continues to have some further improvement. Weaning trials are ongoing at this time. The patient seems comfortable. We'll be able to discontinue meropenem at this point in time with no other further positive cultures. The plan 10-14 days of vancomycin for the enterococcus peritonitis. Fortunately fluid is cleared and she is doing somewhat better overall. Still has somewhat of a poor prognosis. 09/03/2017 patient has been extubated and seems comfortable. Is doing well with the treatment of her enterococcus peritonitis. At this time would plan to complete 14 days total of therapy for the enterococcal peritonitis with salvage of her CAPD catheter. She seems to be doing considerably better at this time. Nutrition is going to be the next biggest difficulty until her neurological status improves. Meropenem discontinued. 09/06/2017 Patient improved but not at baseline. The peritonitis is improved. Will complete 2 weeks of vancomycin therapy for the enterococcus peritonitis. Being followed by neurology at this time for her metabolic encephalopathy. Her creatinine has improved and nephrology is following guarding the peritoneal dialysis that he has recently allowed her to have a marked improvement of her volume overload. Leukocytosis continues to improve. No evidence of any other new infections at this time. 09/07/2017 patient remained stable but has not regained her baseline mental status. The abdominal exam revealed that her peritonitis improved and the most recent evaluations of her fluid are clear with no evidence of further or persistent infection. The plan is to complete the 2 weeks of vancomycin therapy for the enterococcus peritonitis. She continues to have a significant metabolic encephalopathy and neurology is following. No other new infections have been identified. She does have the significant difficulty with the severe peripheral vascular disease the mummification of her fingers and the ulceration to the right lower extremity at the foot but none of these appear to be with a new change or new infection. Skin tear to the left arm pressure ulceration to her coccyx are all without significant change. 09/08/2017 patient still has not regained her baseline mental status. Peritonitis appears to be improved clinically. She will complete 2 weeks of vancomycin therapy for the enterococcus peritonitis. No further underlying infections as the etiology for her underlying metabolic encephalopathy. She however significant underlying medical troubles including the severe peripheral vascular disease with the mummification of her fingers. Concern to similar process within the blood vessels of the brain Current Visit: Yes Status: Acute Code(s): T85.71XA - INFECT/INFLM REACTION DUE TO PERITON DIALYSIS CATHETER, INIT; A49.9 - BACTERIAL INFECTION, UNSPECIFIED SNOMED Code(s): 727235826
[2017-09-09] MEDS: DIALYSIS (PERIT 1.5%) 2,000 ML 30 G/2,000 ML BAG INTRAPERIT SCH ×4 (00:06→16:59)
[2017-09-09 07:32] LABS: Glucose,Whole Blood 144 mg/dL (75-99)
[2017-09-09] MEDS: METOPROLOL TARTRATE 12.5 MG TAB PO SCH (07:35)
[2017-09-09] MEDS: INSULIN ASPART 100 UNIT/ML 1 ML 10 ML VIAL SQ SCH ×3 (07:36→16:59)
[2017-09-09] MEDS: SEVELAMER 800 MG TAB PO SCH ×3 (07:36→16:59)
[2017-09-09] MEDS: MIDODRINE 5 MG TAB PO SCH ×3 (07:36→16:59)
[2017-09-09] MEDS: PANTOPRAZOLE 40 MG/10 ML VIAL IVP SCH (07:37)
[2017-09-09] MEDS: ASPIRIN 325 MG TAB PO SCH (07:37)
[2017-09-09] MEDS: GABAPENTIN 100 MG CAP PO SCH ×2 (07:37→15:04)
[2017-09-09] MEDS: HEPARIN SODIUM,PORCINE 5,000 UNIT/ML 1 ML VIAL SQ SCH (07:37)
[2017-09-09] MEDS: LEVOTHYROXINE IVP 100 MCG/5 ML VIAL IV SCH (07:37)
[2017-09-09] MEDS: SODIUM CHLORIDE 0.9% 1,000 ML IV SCH (07:38)
[2017-09-09] MEDS: IPRATROPIUM-ALBUTEROL 3 ML NEB INHALATION SCH ×3 (08:56→16:20)
[2017-09-09] MEDS: ACETAMINOPHEN TAB 325 MG TAB PO PRN (08:58)
[2017-09-09] MEDS ORDERED: VANCOMYCIN 1,000 MG in SODIUM CHLORIDE 0.9% 250 ML IVPB ONE (09:00)
[2017-09-09 09:02] LABS: Basophils # (A) 0.1 k/uL (0-0.2); Basophils % (A) 0 %; Eosinophils # (A) 0.2 k/uL (0-0.7); Eosinophils % (A) 1 %; HGB 8.7 gm/dL (11.4-16.0); Hypochromasia Slight; Lymphocytes # (A) 1.7 k/uL (1.0-4.8); Lymphocytes % (A) 11 %; MCHC 31.1 g/dL (31.0-37.0); MCV 93.2 fL (80.0-100.0); Mean Platelet Volume 7.5; Monocytes # (A) 0.5 k/uL (0-1.0); Monocytes % (A) 3 %; Neutrophils # (A) 12.5 k/uL (1.3-7.7); Neutrophils % (A) 83 %; Platelet Count 365 k/uL (150-450); RDW 14.5 % (11.5-15.5)
[2017-09-09 09:28] LABS: Calcium 6.7 mg/dL (8.4-10.2); Magnesium 1.6 mg/dL (1.6-2.3); Phosphorus 6.5 mg/dL (2.5-4.5); Potassium 4.3 mmol/L (3.5-5.1)
[2017-09-09] MEDS: HYDROmorphone 0.5 MG/0.5 ML SYRINGE IVP PRN ×3 (10:28→18:00)
[2017-09-09 12:28] LABS: Glucose,Whole Blood 145 mg/dL (75-99)
--- NOTE | 2017-09-09 13:56 | P.PN ---
Subjective Progress Note Date: 09/09/17 Principal diagnosis: Acute hypoxic respiratory failure secondary to congestive heart failure, systolic in nature, abdominal sepsis secondary to enterococcus faecalis The patient is seen again today 09/09/2017 in follow-up on the regular medical floor. He was initially fairly restless earlier this morning he was given Dilaudid 0.5 mg. Currently she is resting quite comfortably in bed. She is maintaining O2 saturations in the 90s on room air. She is somewhat hypotensive and tachycardic. She is afebrile. She is maintained on bronchodilators and vancomycin. Her family is considering hospice. White count 15.0. Hemoglobin 8.7. Creatinine 3.75. Objective - Vital Signs Vital signs: Vital Signs Temp 97.6 F 09/09/17 06:40 Pulse 65 09/09/17 09:08 Resp 16 09/09/17 08:00 BP 83/45 09/09/17 08:50 Pulse Ox 92 L 09/08/17 15:00 Intake & Output 09/08/17 09/09/17 09/09/17 18:59 06:59 18:59 Intake Total 30 150 Output Total 0 0 Balance 30 150 Weight 58.3 kg 60.2 kg 60.2 kg Intake: IV 30 Sodium Chloride 0.9% 1, 30 000 ml @ 10 mls/hr IV . Q24H [facility] Rx#:[id number] Oral 150 Output: Urine 0 0 Other: Voiding Method CAPD CAPD CAPD # Voids 1 ABP, PAP, CO, CI - Last Documented Arterial Blood Pressure 96/46 - Exam Physical exam revealed a 67-year-old female, chronically ill, in no distress, lethargic Head exam was generally normal. There was no scleral icterus or corneal arcus. Mucous membranes were moist. Neck was supple and without jugular venous distension, thyromegaly, or carotid bruits. Carotids were easily palpable bilaterally. There was no adenopathy. Lungs sounds are diminished bilaterally, no rhonchi, no wheezes Heart sounds irregular irregular rhythm, positive S1-S2, no significant murmurs appreciated. Abdominal exam revealed normal bowel sounds. The abdomen was soft, non-tender, and without masses, organomegaly, or appreciable enlargement of the abdominal aorta. The patient has a PD catheter which is in place and there is no direct tenderness Extremities revealed no edema. Pulses in lower extremities are markedly diminished. The patient has necrotic digits at the tips of the digits involving the third mid finger on the left and the fourth finger on the right. There is evidence of dry gangrene. No evidence of any wound infection. The area is pretty much black and necrotic. No lower extremities edema. No cyanosis. Neurologic : Opens eyes, lethargic on today's exam, but arousable to verbal stimuli, and responds verbally, confused - Labs CBC & Chem 7: 09/09/17 08:25 09/09/17 08:25 Labs: Abnormal Lab Results - Last 24 Hours (Table) 09/08/17 09/08/17 09/09/17 Range/Units 17:51 20:54 07:27 WBC (3.8-10.6) k/uL RBC (3.80-5.40) m/uL Hgb (11.4-16.0) gm/dL Hct (34.0-46.0) % Neutrophils # (1.3-7.7) k/uL Sodium (137-145) mmol/L Chloride (98-107) mmol/L BUN (7-17) mg/dL Creatinine (0.52-1.04) mg/dL Glucose (74-99) mg/dL POC Glucose (mg/dL) 125 H 114 H 144 H (75-99) mg/dL Plasma Lactic Acid Kana (0.7-2.0) mmol/L Calcium (8.4-10.2) mg/dL Phosphorus (2.5-4.5) mg/dL 09/09/17 09/09/17 09/09/17 Range/Units 08:25 08:25 09:25 WBC 15.0 H (3.8-10.6) k/uL RBC 3.00 L (3.80-5.40) m/uL Hgb 8.7 L (11.4-16.0) gm/dL Hct 28.0 L (34.0-46.0) % Neutrophils # 12.5 H (1.3-7.7) k/uL Sodium 133 L (137-145) mmol/L Chloride 95 L (98-107) mmol/L BUN 39 H (7-17) mg/dL Creatinine 3.75 H (0.52-1.04) mg/dL Glucose 153 H (74-99) mg/dL POC Glucose (mg/dL) (75-99) mg/dL Plasma Lactic Acid Kana 3.2 H* (0.7-2.0) mmol/L Calcium 6.7 L (8.4-10.2) mg/dL Phosphorus 6.5 H (2.5-4.5) mg/dL 09/09/17 Range/Units 12:25 WBC (3.8-10.6) k/uL RBC (3.80-5.40) m/uL Hgb (11.4-16.0) gm/dL Hct (34.0-46.0) % Neutrophils # (1.3-7.7) k/uL Sodium (137-145) mmol/L Chloride (98-107) mmol/L BUN (7-17) mg/dL Creatinine (0.52-1.04) mg/dL Glucose (74-99) mg/dL POC Glucose (mg/dL) 145 H (75-99) mg/dL Plasma Lactic Acid Kana (0.7-2.0) mmol/L Calcium (8.4-10.2) mg/dL Phosphorus (2.5-4.5) mg/dL Assessment and Plan Assessment: Assessment: 1 acute hypoxic respiratory failure, multifactorial, The patient has a component of fluid overload and pulmonary vessel congestion small bilateral pleural effusion. The severe metabolic acidosis has resolved. 2 acute hypotension , resolved, and off norepinephrine today. 3 acute non-STEMI [place] troponin peaked at 7, still on a combination of aspirin 4 coronary artery disease with previous coronary artery bypass surgery 5 End stage renal disease on hemodialysis via peritoneal dialysis. The patient has been on PD since November 2016. 6 acute hyperkalemia secondary to severe metabolic acidosis, resolved 7 severe anion gap metabolic acidosis, resolved 8 history of obesity status post gastric bypass surgery 9 diabetes mellitus recovered following bariatric surgery and the patient is currently on no diabetic medications 10 hypertension, history of 11 hypothyroidism, chemically still hypothyroid with a TSH of more than 100 and a free T4 of 0.74 and the patient will be kept on IV Synthroid. 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 15 seeking kidney transplantation at [facility] 16 chronic anemia, normocytic 17 hypoproteinemia and hypoalbuminemia 18 hypothermia, recovered 19 severe peripheral vascular disease 20 acute abdominal sepsis the peritoneal fluid is positive for Enterococcus faecalis, vancomycin susceptible. Remains on vancomycin, presently off Merrem Recommendation: The patient was seen and evaluated by Dr. Powell. Her overall prognosis remains quite guarded and poor. The family is having a meeting with hospice today. We will follow with the patient on as-needed basis. I, the cosigning physician, performed a history & physical examination of the patient. Lungs sounds are clear. Maintaining good O2 saturations in the 90s on room air. I discussed the assessment and plan of care with my nurse practitioner, Velma Padgett. I attest to the above note as dictated by her.
--- NOTE | 2017-09-09 14:33 | PN ---
PROGRESS NOTE Patient is seen for follow up for end-stage renal. disease. This morning, patient has been transferred out of the ICU. This morning, patient is seen on the regular medical floor. The blood pressure remains low at 83/45, heart rate 106 per minute. According to nursing staff, they were not able to perform the peritoneal dialysis last night as the fluid would not . She was able drain but they were not able to instill. Patient denies any abdominal pain. Her fluid cultures did turning sander operator to be Enterococcus faecalis which was susceptible to vancomycin. Patient will not be a good candidate for hemodialysis if her PD does not work. We will try again this afternoon and we can try heparin flushes as well. PHYSICAL EXAMINATION: Blood pressure is 83/45, heart rate is 65 per minute. She is afebrile. Examination of the heart, S1, S2. Examination of the lungs, bilateral breath sounds are heard. Decreased breath sounds at the bases. Abdomen is soft, nontender. Examination of the lower extremities shows no edema. There is gangrenous change joints noted in left heel as well as in both hands. LABS: Show sodium 130, potassium 4.3, calcium is 6.7, magnesium 1.6, hemoglobin 8.7 g/dL. ASSESSMENT: 1. End-stage renal disease, currently on sacral dialysis. We were not be able to perform PD last night. I will talk to the nurse and we will try it again later on today. If her PD catheter is not functioning, this may need to come out as the organism was enterococcus faecalis. Patient is not an ideal candidate for hemodialysis given the significant cardiomyopathy and low blood pressure and she may not tolerate it very well. This will discussed with the family as well, overall prognosis is guarded. 2. Status post respiratory failure. 3. Sepsis secondary to peritonitis, now improved. 4. Hypotension. Patient remains on midodrine, her cortisol level was not low. She was anemic and has been transfused packed RBCs. Hemoglobin staying stable at 8.7 g/dL. 5. Anemia with no active bleeding noted, maintained on Aranesp. The patient was iron deplete. .. 6. History of atrial fibrillation, maintained on Lopressor. 7. Chronic kidney disease with mood disorder. Maintained on Renvela; however, patient is not eating much. PLAN: 1. Will try PD again, if catheter is not working this may need to be taken out and ideally patient is not a good candidate for hemodialysis. 2. Severe cardiomyopathy and hypotension. She may not tolerate hemodialysis well. MMODL / IJN: [id number] /
[2017-09-09 14:46] VITALS: BP 87/59; PULSE 100; RESP 18; TEMP 97.4
--- NOTE | 2017-09-09 16:40 | P.DS ---
Providers Date of admission: 08/27/17 07:52 Expected date of discharge: 09/09/17 Attending physician: Astrid Bae Consults: 08/27/17 07:52 Consult Physician Stat Consulting Provider: Alexis Lan Consult Reason/Comments: Myocardial infarction Do you want consulting provider notified?: Yes Consult Physician Stat Consulting Provider: Shanae Walker Consult Reason/Comments: Renal failure, hyperkalemia, metabolic acidosis Do you want consulting provider notified?: Yes Consult Physician Urgent Consulting Provider: Neil Powell Consult Reason/Comments: Respiratory failure Do you want consulting provider notified?: Yes 08/30/17 10:48 Consult Physician Stat Consulting Provider: Aguila Locke Consult Reason/Comments: Positive peritoneal cultures Do you want consulting provider notified?: Yes 09/04/17 06:12 Consult Physician Stat Consulting Provider: Case Mensah Consult Reason/Comments: altered mentation Do you want consulting provider notified?: Yes, Notify in am Primary care physician: Lashanda Sim [facility] Course: Final Diagnoses: -Acute metabolic ENCEPHALOPATHY. CT head negative. -Acute abdominal sepsis secondary to peritonitis with enterococcus fecalis., possibly related to PD catheter-though initial white count 170 with repeat PD fluid cell count 35, peritoneal fluid positive for enterococcus faecialis. -Septic shock with possibility of cardiogenic shock secondary to acute NSTEMI. Severe cardiomyopathy ejection fraction of around 25%. Shock improved, status post pressors -Acute hypotension secondary to the above. -Acute Hypoxic respiratory failure, mechanical ventilator-dependent, re- intubated. Currently extubated. 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 Hospital course:65-year-old the being treated for acute respiratory failure secondary to sepsis source unclear possibly lower limb ulcerations or peritonitis. Patient remains intubated patient is presently on 40% FiO2 PEEP of 5 and tidal volume of 500 continues to have metabolic acidosis which improved compared to yesterday. Patient is undergoing peritoneal dialysis remains on epinephrine, propofol drip, IV heparin for possible non-ST elevation myocardial infarction, on antibiotics meropenem and vancomycin with the so for negative cultures, very minimal urine output, hypotension improved, possibility of a superimposed cardiac sharp with bilateral pleural effusions 08/29/2017 Patient is off sedation undergoing weaning trials, on 1 g of epinephrine. Patient is awake and arousable intubated on BiPAP through ventilator 08/30/17 reintubated last night with FiO2 at 70%/+8 of PEEP. Chest x-ray reporting increasing lung opacity's, worsening edema and or infiltrates. Maintained on DIprova, heparin and Levophed drips. Troponin up to 9.5. Minimal urine output. Peritoneal dialysis cultures reporting enterococcus. Potential hemodialysis being discussed. Telemetry sinus rhythm. 08/31/17 remains vent dependent. CXR and ABGs improving. FiO2 decreased to 50% and PEEP decreased down to 5%. No weaning trials, yet. Tube feedings being initiated. Bicarb 22. PD changed to every 4 hours with solution adjusted as per nephrology. Levophed down to 7 mics. Maintained on Merrem and vancomycin, peritoneal cultures positive for enterococcus D, final results pending. 09/01/17 continues on antibiotics for enterococcus faecalis peritonitis. remains vent dependent, FiO2 decreased to 40%/+5 of PEEP. ABGs improved. Maintain on heparin, diprovan and Levophed drips. Prior chest ultrasound reported bilateral pleural effusions greater on the left with largest pocket 8.3 cm. Chest x-ray reporting bilateral consolidation, pleural effusions, small amount of subcutaneous emphysema along right lateral chest wall. Chest ultrasound repeated with both left and right-sided marked for possible thoracentesis. Paroximal A. fib, currently sinus rhythm. Pulmonary discussing possible weaning parameters. Tube feeds at goal with minimal to no residuals. 09/02/2017 Patient remained on mechanical ventilator. Changed to per support and is starting to wean off from in today. Patient is able to open her eyes and could not follow any commands. Chest x-ray showed improvement in left pleural effusion. Pulmonary is now planning for thoracentesis at this time. Patient is off pressors support. Patient is being continued on vancomycin for enterococcus fecaliths in the peritoneal fluid. Meropenem has been discontinued. Pulmonary and ID is following. 09/03/2017 Patient was extubated today. Otherwise still confused but able to move her extremities. Could not able to communicate at this time. Patient is generally weak and unable to tolerate oral diet and currently on nothing by mouth. Chest x-ray showed improvement. Patient is being continued on antibiotics otherwise. Peritoneal dialysis every 6 hourly. 09/04/2017 Patient is extubated and is oxygenating well on nausea cannula. Mental status otherwise system confused and could not able to speak at this time. Patient is able to open her eyes and follow simple commands. CT head was done showed no acute intracranial process. No change from prior study Chest x-ray showed right basilar opacity and could represent atelectasis or pneumonia. Neurology was consulted for further evaluation. WBC 14, BUN 51 creatinine 3.29 Discussed with the family at bedside. 09/05/2017 Patient is currently saturating well on nasal cannula. Patient was started back on low-dose Levophed today. Otherwise mental status slightly improved and is able to talk single words occasionally. Patient seems more oriented today. Neurology has seen the patient. Repeat CT head was ordered. Swallowing evaluation tomorrow. No fever no chills. Patient is being continued on antibiotics and parenteral dialysis as scheduled. 09/06/2017 Patient is awake and more oriented today. Able to communicate slowly. Otherwise patient did well with swallow study. Patient is off pressors support. Anticipate starting on oral diet tomorrow. No fever no chills. Saturating well on nasal cannula. Leukocytosis improving to 15.9 complaints of chest pain or worsening shortness of breath. No nausea vomiting or abdominal pain. 09/07/2017 Patient is on low-dose pressor support today. Patient has enterococcus in the peritoneal fluid patient remains on broad-spectrum antibiotics. 09/08/2017 Patient is being transferred out of ICU off pressor support patient's meropenem was discontinued patient has enterococcal bacterial peritonitis patient is on vancomycin. Patient still has pain in the digits secondary to peripheral vascular disease and necrosis of multiple fingers. Her overall prognosis is extremely poor same thing discuss with the sister. Patient received the Dilaudid after which patient is sleeping comfortably today. 09/09/2017 patient transferred out of ICU last night. Difficulty with peritoneal dialysis throughout the night and transcribing machine operator hours. Hypotensive, unable to obtain O2 saturation. Pain uncontrolled, patient moaning. After receiving pain medication,patient drops her blood pressure further. Discussed poor prognosis with daughter and son. Per family's decision patient is changed to no code, no CPR, no intubation, comfort care/hospice. Informational hospice meeting transpired. Per family's request patient is being discharged to [facility] today. Patient is being discharged to [facility], stable for transfer, with extremely poor prognosis. The impression and plan of care has been dictated as directed. : I performed a history and examination of this patient, discussed the same with the dictator. I agree with the dictator's note ,documented as a scribe. Any additional findings or plans will be noted. Time taken: 35 minutes Plan - Discharge Summary Discharge Rx Participant: No New Discharge Prescriptions: New Ipratropium-Albuterol Nebulize [Duoneb 0.5 mg-3 mg/3 ml Soln] 3 ml INHALATION RT-QID ampul.neb Ipratropium-Albuterol Nebulize [Duoneb 0.5 mg-3 mg/3 ml Soln] 3 ml INHALATION RT-Q2H PRN ampul.neb PRN Reason: Shortness Of Breath Or Wheezing LORazepam [Ativan] 0.5 mg SL Q8H PRN #9 tab PRN Reason: Anxiety MORPHINE ORAL BRENDON CONC 20mg/mL [Roxanol Oral Soln Conc 20MG/ML] 10 mg SL Q4H PRN #12 ml PRN Reason: Pain Scopolamine 1.5MG/72Hr Patch [TransDerm Scop] 1 patch TRANSDERM Q72H #1 patch Continue HYDROcodone/APAP 5-325MG [[place] 5-325] 1 tab PO Q6HR PRN #12 tab PRN Reason: Pain Discontinued Promethazine HCl 12.5 mg PO Q6H PRN PRN Reason: Nausea No Action Polyethylene Glycol 3350 [Miralax] 17 gm PO DAILY PRN PRN Reason: Constipation Fluticasone Nasal [place] [Flonase Nasal [place]] 1 spr EA NOSTRIL DAILY Docusate [Colace] 100 mg PO BID Calcium Acetate [Phoslo] 667 mg PO TID Acetaminophen Tab [Tylenol Tab] 650 mg PO Q4-6H PRN PRN Reason: Pain Discharge Medication List Acetaminophen Tab [Tylenol Tab] 650 mg PO Q4-6H PRN 08/27/17 [History] Calcium Acetate [Phoslo] 667 mg PO TID 08/27/17 [History] Docusate [Colace] 100 mg PO BID 08/27/17 [History] Fluticasone Nasal [place] [Flonase Nasal [place]] 1 spr EA NOSTRIL DAILY 08/27/17 [ History] Polyethylene Glycol 3350 [Miralax] 17 gm PO DAILY PRN 08/27/17 [History] HYDROcodone/APAP 5-325MG [[place] 5-325] 1 tab PO Q6HR PRN #12 tab 09/09/17 [Rx] Ipratropium-Albuterol Nebulize [Duoneb 0.5 mg-3 mg/3 ml Soln] 3 ml INHALATION RT -Q2H PRN ampul.neb 09/09/17 [Rx] Ipratropium-Albuterol Nebulize [Duoneb 0.5 mg-3 mg/3 ml Soln] 3 ml INHALATION RT -QID ampul.neb 09/09/17 [Rx] LORazepam [Ativan] 0.5 mg SL Q8H PRN #9 tab 09/09/17 [Rx] MORPHINE ORAL BRENDON CONC 20mg/mL [Roxanol Oral Soln Conc 20MG/ML] 10 mg SL Q4H PRN #12 ml 09/09/17 [Rx] Scopolamine 1.5MG/72Hr Patch [TransDerm Scop] 1 patch TRANSDERM Q72H #1 patch [Rx] Follow up Appointment(s)/Referral(s): Dr. mikhail PCP [Other] - As Needed Patient Instructions/Handouts: Hospice ([facility]) Activity/Diet/Wound Care/Special Instructions: [facility] Diet as tolerated. Change positions every few hours, support to heels and coccyx. Oral care every few hours. Discharge Disposition: [facility] TO [facility]ICE [facility]
== END 2017-09-09 18:09 | disposition hospice, inpatient (51) | DRG 919 ==
LOC: EC 04:16 → 6ICU 07:52 → 4MS4W 09-08 17:15
PROVIDERS: ADMIT Hospitalist; ATTEND Hospitalist
PROC: 0BH17EZ Insertion of Endotracheal Airway into Trachea, Via Natural or Artificial Opening (ICD-10-PCS; principal; 2017-08-27)
PROC: 5A1945Z Respiratory Ventilation, 24-96 Consecutive Hours (ICD-10-PCS; 2017-08-27)
PROC: 3E1M39Z Irrigation of Peritoneal Cavity using Dialysate, Percutaneous Approach (ICD-10-PCS; 2017-08-27)
PROC: 0D9670Z Drainage of Stomach with Drainage Device, Via Natural or Artificial Opening (ICD-10-PCS; 2017-08-27)
PROC: 06HM33Z Insertion of Infusion Device into Right Femoral Vein, Percutaneous Approach (ICD-10-PCS; 2017-08-27)
PROC: 04HY32Z Insertion of Monitoring Device into Lower Artery, Percutaneous Approach (ICD-10-PCS; 2017-08-27)
PROC: 4A133B1 Monitoring of Arterial Pressure, Peripheral, Percutaneous Approach (ICD-10-PCS; 2017-08-27)
PROC: 4A133J1 Monitoring of Arterial Pulse, Peripheral, Percutaneous Approach (ICD-10-PCS; 2017-08-27)
PROC: 5A1955Z Respiratory Ventilation, Greater than 96 Consecutive Hours (ICD-10-PCS; 2017-08-30)
PROC: 0BH18EZ Insertion of Endotracheal Airway into Trachea, Via Natural or Artificial Opening Endoscopic (ICD-10-PCS; 2017-08-30)
PROC: 04HY32Z Insertion of Monitoring Device into Lower Artery, Percutaneous Approach (ICD-10-PCS; 2017-08-30)
PROC: 4A133B1 Monitoring of Arterial Pressure, Peripheral, Percutaneous Approach (ICD-10-PCS; 2017-08-30)
PROC: 4A133J1 Monitoring of Arterial Pulse, Peripheral, Percutaneous Approach (ICD-10-PCS; 2017-08-30)
PROC: 3E0G76Z Introduction of Nutritional Substance into Upper GI, Via Natural or Artificial Opening (ICD-10-PCS; 2017-08-31)
PROC: 30243N1 Transfusion of Nonautologous Red Blood Cells into Central Vein, Percutaneous Approach (ICD-10-PCS; 2017-09-07)
DX: T85.71XA Infection and inflammatory reaction due to peritoneal dialysis catheter, initial encounter (principal); L89.323 Pressure ulcer of left buttock, stage 3; L89.313 Pressure ulcer of right buttock, stage 3; A41.81 Sepsis due to Enterococcus; R65.21 Severe sepsis with septic shock; J96.01 Acute respiratory failure with hypoxia; N18.6 End stage renal disease; I21.4 Non-ST elevation (NSTEMI) myocardial infarction; I50.23 Acute on chronic systolic (congestive) heart failure; G92 Toxic encephalopathy; K65.8 Other peritonitis; E11.52 Type 2 diabetes mellitus with diabetic peripheral angiopathy with gangrene; I47.2 Ventricular tachycardia; E87.4 Mixed disorder of acid-base balance; I96 Gangrene, not elsewhere classified; I13.2 Hypertensive heart and chronic kidney disease with heart failure and with stage 5 chronic kidney disease, or end stage renal disease; E87.1 Hypo-osmolality and hyponatremia; J98.11 Atelectasis; J98.2 Interstitial emphysema; Z76.82 Awaiting organ transplant status; J44.9 Chronic obstructive pulmonary disease, unspecified; T68.XXXA Hypothermia, initial encounter; I48.2 Chronic atrial fibrillation; E11.21 Type 2 diabetes mellitus with diabetic nephropathy; E11.22 Type 2 diabetes mellitus with diabetic chronic kidney disease; E11.622 Type 2 diabetes mellitus with other skin ulcer; E11.649 Type 2 diabetes mellitus with hypoglycemia without coma; E83.51 Hypocalcemia; E87.5 Hyperkalemia; E83.39 Other disorders of phosphorus metabolism; I25.5 Ischemic cardiomyopathy; I35.0 Nonrheumatic aortic (valve) stenosis; I44.7 Left bundle-branch block, unspecified; E86.1 Hypovolemia; D63.1 Anemia in chronic kidney disease; T82.898D Other specified complication of vascular prosthetic devices, implants and grafts, subsequent encounter; E03.9 Hypothyroidism, unspecified; I70.0 Atherosclerosis of aorta; I25.10 Atherosclerotic heart disease of native coronary artery without angina pectoris; K21.9 Gastro-esophageal reflux disease without esophagitis; S41.112A Laceration without foreign body of left upper arm, initial encounter; F39 Unspecified mood [affective] disorder; I25.2 Old myocardial infarction; E87.6 Hypokalemia; E78.5 Hyperlipidemia, unspecified; Z79.02 Long term (current) use of antithrombotics/antiplatelets; Z79.51 Long term (current) use of inhaled steroids; Z79.890 Hormone replacement therapy; Z79.82 Long term (current) use of aspirin; Z79.899 Other long term (current) drug therapy; Z87.891 Personal history of nicotine dependence; Z98.84 Bariatric surgery status; Z95.1 Presence of aortocoronary bypass graft; Z99.2 Dependence on renal dialysis; Z87.11 Personal history of peptic ulcer disease; Z91.81 History of falling; Z98.42 Cataract extraction status, left eye; Z98.41 Cataract extraction status, right eye; Z88.0 Allergy status to penicillin; Z80.7 Family history of other malignant neoplasms of lymphoid, hematopoietic and related tissues; Z82.49 Family history of ischemic heart disease and other diseases of the circulatory system; W19.XXXA Unspecified fall, initial encounter; Y92.002 Bathroom of unspecified non-institutional (private) residence as the place of occurrence of the external cause; Y84.1 Kidney dialysis as the cause of abnormal reaction of the patient, or of later complication, without mention of misadventure at the time of the procedure; E77.8 Other disorders of glycoprotein metabolism; E88.09 Other disorders of plasma-protein metabolism, not elsewhere classified
CPT/HCPCS: 36415; 36600; 70450; 71045; 71275; 72125; 74230; 76604; 80048; 80053; 80061; 80202; 81001; 82040; 82330; 82533; 82550; 82553; 82805; 83036; 83605; 83735; 84100; 84132; 84439; 84443; 84484; 85025; 85027; 85379; 85610; 85730; 86850; 86900; 86901; 86920; 87040; 87070; 87077; 87086; 87186; 87205; 87324; 89050; 93005; 93306; 93880; 94002; 94003; 94640; 95816